=== PATIENT | female | born 1995 | race Caucasian/White ===

== ENCOUNTER 2023-06-01 10:54 | Outpatient (OUT) | payer BC, OTHER, SELFPAY ==
--- NOTE | 2023-06-01 10:58 | US_ITS ---
The [address] [address] Patient Name: ELI FATIMA MRN: [id number] date: 1995 Sex: F Assigned Patient Location: US Current Patient Location: US Accession/Order Number: [id number] Exam Date: 06/01/2023 10:58 Report Date: 06/01/2023 13:12 At the request of: CARMEN ALAS Procedure: US pelvis w/ transvaginal EXAM: US pelvis w/ transvaginal HISTORY: PELVIC PAIN AND DISCHARGE COMPARISON: 02/02/2022 08/01/2022. TECHNIQUE: Pelvic sonography was performed utilizing grayscale and color Doppler technique. FINDINGS: Hysterectomy. Right ovary measures 2.6 x 2.1 x 2.8 cm. Normal right ovarian parenchyma. Left ovary measures 2.6 x 1.2 x 2.0 cm. Normal left ovarian parenchyma. No significant free fluid within the pelvis. US/US pelvis w/ transvaginal IMPRESSION: 1. Hysterectomy. 2. Unremarkable ovaries. Electronically authenticated by: ALVARO JUNE Date: 06/01/2023 13:12
== END 2023-06-01 10:55 | disposition home or self-care (01) ==
LOC: US 10:55
PROVIDERS: PCP Family Medicine; Visit Provider Obstetrics & Gynecology
DX: R10.2 Pelvic and perineal pain (principal)
CPT/HCPCS: 76830; 76856

== ENCOUNTER 2023-06-07 12:55 | Outpatient (OUT) | payer BC, OTHER, SELFPAY ==
[2023-06-08 06:18] LABS: HBsAg Screen Negative (Negative); HCV Ab Non Reactive (Non Reactive); HIV Ab/p24 Ag Screen Non Reactive (Non Reactive); Hep A Ab, IgM Negative (Negative); Hep B Core Ab, IgM Negative (Negative)
[2023-06-08 11:08] LABS: Rapid Plasma Reagin, Quant Non Reactive titer (NonRea<1:1)
== END 2023-06-07 12:56 | disposition home or self-care (01) ==
PROVIDERS: PCP Family Medicine; Visit Provider Obstetrics & Gynecology
DX: R10.2 Pelvic and perineal pain (principal); N89.8 Other specified noninflammatory disorders of vagina
CPT/HCPCS: 36415; 80074; 86592; 87389

== ENCOUNTER 2023-07-09 12:29 | Outpatient (OUT) | payer BC, OTHER, SELFPAY | END 2023-07-09 12:30 | disposition home or self-care (01) | LOC: PST 12:34 | PROVIDERS: PCP Family Medicine; Visit Provider Obstetrics & Gynecology | DX: Z01.818 Encounter for other preprocedural examination (principal); R10.2 Pelvic and perineal pain; N89.8 Other specified noninflammatory disorders of vagina ==

== ENCOUNTER 2023-07-23 07:21 | Day surgery (SDC) | payer BC, OTHER, SELFPAY ==
[2023-07-09 13:01] VITALS: BP 94/53; PULSE 74; RESP 14; TEMP 36.4; O2SAT 100; BMI 27.8
[2023-07-23] VITALS (10 sets, daily range): BP systolic 85–109; BP diastolic 44–63; PULSE 47–76; RESP 14–20; TEMP 36–36.1; O2SAT 98–100
[2023-07-23 07:34] LABS: Basophils Absolute Auto 0.1 10^3/uL (0.0-0.1); Basophils Percent Auto 1.3 % (0.2-2.0); Eosinophils Absolute Auto 0.1 10^3/uL (0.0-0.7); Eosinophils Percent Auto 1.1 % (0.9-7.0); Hematocrit 45.5 % (36.0-48.0); Immature Granulocytes Abs Auto 0.01 10^3/uL (0.00-0.03); Immature Granulocytes Pct Auto 0.1 % (0.0-0.5); Lymphocytes Percent Auto 41.8 % (20.5-60.0); Mean Corpuscular Hemoglobin 29.4 pg (26.7-34.0); Mean Corpuscular Volume 89.2 fL (81.0-99.0); Mean Platelet Volume 12.5 fL (9.5-13.5); Monocytes Absolute Auto 0.6 10^3/uL (0.3-0.8); Monocytes Percent Auto 8.7 % (1.7-12.0); Neutrophils Absolute Auto 3.3 10^3/uL (1.4-6.5); Platelet Count 254 10^3/uL (150-450); Red Cell Distribution Width 12.4 % (11.0-15.0); White Blood Count 7.1 10^3/uL (4.0-11.0)
--- NOTE | 2023-07-23 08:01 | PC.NURSE ---
2 attempts by other nurse
[2023-07-23] MEDS: LACTATED RINGER'S SOLUTION 1,000 ML 50 ML IV (08:02)
[2023-07-23] MEDS: SCOPOLAMINE 1 MG/3 DAYS TRANSDERM PATCH 1 PATCH TD (08:06)
--- NOTE | 2023-07-23 08:59 | PM.ONB ---
Brief Operative Note Date of procedure: 07/23/23 Pre-op diagnosis: pelvic pain,endometriosis Post-op diagnosis: same as pre-op Procedure: NAME OF PROCEDURE: [diagnostic laparoscopy with lysis of bowel adhesions] endometriosis pelvic side wall, normal appearing ovaries PROCEDURE: The patient was taken back to the Operating Room where she was placed in dorsal lithotomy position after given general anesthesia. The patient was prepped and draped in normal sterile fashion. A sponge stick was placed into the patient's vagina. Attention was turned to the patient's abdomen, where a small umbilical incision was made. The fascia was tented using Angie clamps and the fascia was entered sharply. Confirmation of intraabdominal placement of the 10 mm port was confirmed under direct visualization using a laparoscope. The patient's abdomen was then insufflated using CO2 gas with approximately 4 liters. A second port was placed left laterally, this was done under direct visualization with a 5 mm port. Survey of the patient's abdomen demonstrated normal liver and gallbladder. Survey of the patient's pelvic anatomy demonstrated normal appearing rt and lt ovary and tubes as well as normal appearing uterus. No endometrial implants could be noted, no evidence of any pelvic disease was seen, normal appearing pelvic cavity. All instruments were removed from the patient's abdomen. The patient's abdomen was deinsufflated of CO2 gas. The patient tolerated the procedure well. Sponge stick was removed from the patient's vagina. The patient's infraumbilical fascia was closed using #0 Vicryl on a GI needle. The patient's skin was closed laterally and infraumbilically using 4-0 Vicryl. The patient tolerated the procedure well. Sponge, lap and needle counts were correct x 2. The patient was taken to Recovery Room in stable condition. please note monopolar scissors was used to perform lysis of adhesions of the bowel from the pelvic side on the lt side Anesthesia: MARY Surgeon: Timmy Smiley Film Projector Operator: Cristina Hickey Estimated blood loss (mL): 5 Pathology: none sent Condition: stable Disposition: PACU
[2023-07-23] MEDS: HYDROMORPHONE HCL 0.5 MG/0.5 ML SYRINGE IV ×2 (09:15→09:22)
[2023-07-23] MEDS: KETOROLAC TROMETHAMINE 30 MG/ML VIAL IVP (09:16)
--- NOTE | 2023-07-23 09:40 | PC.NURSE ---
Medicated with Dilaudid as ordered; c/o burning in urethra; on bedpan
--- NOTE | 2023-07-23 09:45 | PC.NURSE ---
Medicated for pain as ordered
--- NOTE | 2023-07-23 09:53 | PC.NURSE ---
Off bedpan; unable to void
--- NOTE | 2023-07-23 10:10 | PC.NURSE ---
Up to bathroom and voids clear yellow
[2023-07-23] MEDS: HYDROCODONE/ACET 5-325 MG TABLET 1 TAB PO (10:16)
--- NOTE | 2023-07-23 10:24 | PC.NURSE ---
Medicated for pain as ordered
== END 2023-07-23 10:36 | disposition home or self-care (01) ==
PROVIDERS: PCP Family Medicine; Visit Provider Obstetrics & Gynecology
PROC: (CPT 840; principal; 2023-07-23 08:35)
DX: R10.2 Pelvic and perineal pain (principal); N89.8 Other specified noninflammatory disorders of vagina; N80.359 Endometriosis of pelvic sidewall, unspecified side, unspecified depth; N73.6 Female pelvic peritoneal adhesions (postinfective); J45.909 Unspecified asthma, uncomplicated; M79.7 Fibromyalgia; F41.1 Generalized anxiety disorder; Z90.710 Acquired absence of both cervix and uterus; K58.9 Irritable bowel syndrome, unspecified; F31.9 Bipolar disorder, unspecified; Z87.440 Personal history of urinary (tract) infections; Z86.16 Personal history of COVID-19; F17.210 Nicotine dependence, cigarettes, uncomplicated; Z90.49 Acquired absence of other specified parts of digestive tract; K21.9 Gastro-esophageal reflux disease without esophagitis
CPT/HCPCS: 49329; 36415; 85025; J1170; J2704

== ENCOUNTER 2024-01-26 09:27 | Outpatient (OUT) | payer BC, OTHER, SELFPAY ==
--- NOTE | 2024-01-26 09:33 | US_ITS ---
The [address] [address] Patient Name: NAFISA ELLIOTT MRN: [id number] date: 1995 Sex: F Assigned Patient Location: US Current Patient Location: Accession/Order Number: [id number] Exam Date: 01/26/2024 09:35 Report Date: 01/27/2024 11:10 At the request of: TEE BLANCAS Procedure: US soft tissue head and neck EXAMINATION: US soft tissue head and neck HISTORY: Lump of scalp R22.0 COMPARISON: No relevant comparison available. FINDINGS: Corresponding to patient's palpable lump within the right occipital region is a 10 x 7 x 2 mm hypoechoic area which follows the tissue plane. No appreciable internal blood flow; but there is an adjacent blood vessel. US/US soft tissue head and neck IMPRESSION: 1. Nonspecific subcutaneous nodule versus complex fluid collection corresponding to patient's palpable lump within the right occipital region. Consider clinical follow-up and if changing consider ultrasound-guided tissue sampling. Electronically authenticated by: SPENSER YANG Date: 01/27/2024 11:10
--- OUTSIDE RECORDS SUMMARY | 2024-01-26 09:37 | XMS_ITS | CCD ---
Author Organization [facility] Inform ion Partnership [facility] Care Team Providers Care Store Gift Wrap Associate Name Role Phone Unknown, Referring Provider Unavailable Unav ailable Unavailable Unavailable UNKNOWN, PCP Primary Care Unavailable ULIS DANIEL DASH Attending Unavailab Dr. Layne Velázquez Jr Referring U navailable LUIS DANIEL DASH Attending Unavailab le LUIS DANIEL DASH Referring Unavailab le UNKNOWN, PCP Primary Care Unavailable LUIS DANIEL DASH Attending Unavailab le UNKNOWN, PCP Primary Care Unavailable LUIS DANIEL DASH Admitting Unavailab le EKTALUIS DANIEL Attending Unavailab le EKTALUIS DANIEL Referring Unavailab le UNKNOWN, PCP Primary Care Unavailable Unavailable Primary Care Provider Unavailabl e Allergies Allergy Classification Reported Allergen(s) Allergy Type Date of Onset Reaction(s) Facility (1 source) metroNIDAZOLE; Translations: [Flagyl] Drug [facility]: Medications Completed/Discontinued Medications Medication Drug Class(es) Dates Sig (Normalized) Sig (Original) Escitalopram (1 source) Serotonin Reuptake Inhibitor Lexapro TABS Quantity: 0 Refills: 0 Ordered: 04-Dec-2022 DO Active mupirocin 0.02 mg/mg topical ointment (1 source) RNA Synthetase Inhibitor Antibacterial Start: 12-04-2022 Mupirocin 2 % External Ointment APPLY A SMALL AMOUNT 3 TIMES DAILY DIRECTED. Quantity: 2 Refills: 0 Ordered: 04-Dec-2022 Luis Daniel Dash MD Start : 04-Dec-2022 Active Problems Problem Classification Problem Date Documented Da te Episodic/Chronic Anxiety disorders (2 sources) Anxiety disorder, unspecified; Translations: [Anxiety disorder] Onset: 12-24-2022 12-31-2022 Chronic Asthma (2 sources) Unspecified asthma, uncomplicated; Translations: [Uncomplicated asthma] Onset: 12-24-2022 12-31-2022 Chronic Esophageal disorders (2 sources) Gastro-esophageal reflux disease without esophagitis; Translations: [Gastroesophageal reflux disease without esophagitis] Onset: 12-24-2022 12-31-2022 Chronic Mood disorders (1 source) Depressive disorder; Translations: [Depression, unspecified] 12-31-2022 Chronic Mood disorders (1 source) Mood disorders; Translations: [Depression, unspecified] Onset: 12-24-2022 Other acquired deformities (1 source) Finding of nasal deformity; Translations: [Acquired deformity of nose] Episodic Other skin disorders (1 source) Swollen nose; Translations: [Swelling, mass, or lump in head and neck] Episodic Other upper respiratory disease (1 source) Chronic rhinitis; Translations: [Chronic rhinitis] Chronic Other upper respiratory disease (3 sources) Deviated nasal septum; Translations: [Deviated nasal septum] 12-24-2022 Episodic Other upper respiratory disease (2 sources) Hypertrophy of nasal turbinates; Translations: [Hypertrophy of nasal turbinates] 12-24-2022 Episodic Other upper respiratory disease (1 source) Nasal congestion; Translations: [Other disease of nasal cavity and sinuses] Episodic Other upper respiratory disease (4 sources) Deviated nasal septum; Translations: [Deviated nasal septum] Onset: 12-24-2022 Episodic Other upper respiratory disease (4 sources) Hypertrophy of nasal turbinates; Translations: [Hypertrophy of nasal turbinates] Onset: 12-24-2022 Episodic Other upper respiratory disease (2 sources) Other specified disorders of nose and nasal sinuses; Translations: [Other specified disorders of nose and nasal sinuses] Onset: 12-24-2022 Episodic Other upper respiratory disease (1 source) Disorder of face; Translations: [Other specified disorders of nose and nasal sinuses] 12-31-2022 Episodic Residual codes; unclassified (1 source) Abnormal sensation; Translations: [Disturbance of skin sensation] Episodic Residual codes; unclassified (1 source) H/O: respiratory disease; Translations: [Other specified personal history presenting hazards to health] Episodic Substance-related disorders (2 sources) Nicotine dependence, unspecified, uncomplicated; Translations: [Nicotine dependence] Onset: 12-24-2022 12-31-2022 Chronic Results Test Name Value Interpretation Reference Range Facility Order Reconciliationon 12-24 Order Reconciliation Page 1 Discharge Reconciliation Document Reconciliation Type: Discharge requested on behalf of Marco Antonio Toledo (Resident) done by Marco Antonio Toledo (DO (Resident)) Discharge - Reconciliation: 24-Dec-2022 10:32 by: Marco Antonio Toledo (DO (Resident)) Home Medications EnteredHOME MEDICATIONS AT DISCHARGE DateReconciliation Comment/ Additional Information Lexapro 20 mg oral tablet 1 tab(s) orally once a day 14-Dec-2022 13:54 Lexapro 20 mg oral tablet 1 tab(s) orally once a day 14-Dec-2022 13:54 Lexapro 20 mg oral tablet is continued as Lexapro 20 mg oral tablet Current OrdersDateHOME MEDICATIONS AT DISCHARGE DateReconciliation Comment/ Additional Information ceFAZolin 1 gram Vial_IPRO SolutionGive 2 gram(s), IntraVenous, ONCE 24-Dec-2022 10:23 ceFAZolin 1 gram Vial_IPRO is not required Dexamethasone 10 mg/mL 1 mL Vial PF_IPRO SolutionGive 10 mg, IntraVenous, ONCE 24-Dec-2022 10:23 Dexamethasone 10 mg/mL 1 mL Vial PF_IPRO is not required ePHEDrine 50 mg/mL 1 mL Ampule_IPRO SolutionGive 25 mg, IntraVenous, ONCE 24-Dec-2022 10:23 ePHEDrine 50 mg/mL 1 mL Ampule_IPRO is not required FENTANYL 50MCG/1ML 2ML INJ_IPRO SolutionGive 100 microgram(s), IntraVenous, ONCE 24-Dec-2022 10:23 FENTANYL 50MCG/1ML 2ML INJ_IPRO is not required HYDROmorphone 1 mg/mL 1 mL Ampule_IPRO SolutionGive 1 mg, IntraVenous, ONCE 24-Dec-2022 10:23 HYDROmorphone 1 mg/mL 1 mL Ampule_IPRO is not required HYDROmorphone Injectable (DILAUDID)DOSE = 0.25 mg IntraVenous Push Every 5 Minutes, PRN Pain - Mod (4-6) (PACU)Clinician Notes: Octavia-operative order ONLYMax total of 4 mg regardless of dose. 24-Dec-2022 08:04 HYDROmorphone Injectable is not required HYDROmorphone Injectable (DILAUDID)DOSE = 0.5 mg IntraVenous Push Every 5 Minutes, PRN Pain - Severe (7-10) (PACU)Clinician Notes: Octavia-operative order ONLYMax total of 4 mg regardless of dose. 24-Dec-2022 08:04 HYDROmorphone Injectable is not required Ketorolac 30 mg/mL Inj 1mL_IPRO SolutionGive 30 mg, IntraVenous, ONCE 24-Dec-2022 10:23 Ketorolac 30 mg/mL Inj 1mL_IPRO is not required Lactated Ringers Infusion IV Bag Volume = 1,000 mL Run at: 100 mL/hr IntraVenous Clinician Notes: Octavia-operative order ONLY 24-Dec-2022 08:04 Lactated Ringers Infusion is not required LIDOCAINE 2% PF 5ML VIAL_IPRO SolutionGive 60 mg, IntraVenous, ONCE 24-Dec-2022 10:23 LIDOCAINE 2% PF 5ML VIAL_IPRO is not required Lidocaine 1% Injectable DOSE = 0.1 mL SubCutaneous Once, PRN analgesia for IV startClinician Notes: Octavia-operative order ONLYTo be used for IV Insertion Only 24-Dec-2022 08:04 Lidocaine 1% Injectable is not required Midazolam 1 mg/mL Inj 2 mL_IPRO SolutionGive 2 mg, IntraVenous, ONCE 24-Dec-2022 10:23 Midazolam 1 mg/mL Inj 2 mL_IPRO is not required Ondansetron 4 mg/2 mL Inj_IPRO SolutionGive 4 mg, IntraVenous, ONCE 24-Dec-2022 10:23 Ondansetron 4 mg/2 mL Inj_IPRO is not required Ondansetron Injectable (ZOFRAN)DOSE = 4 mg IntraVenous Push Once, PRN PONV, first lineClinician Notes: Octavia-operative order ONLY 24-Dec-2022 08:04 Ondansetron Injectable is not required oxyCODONE Immediate Release Tablet (OXYIR, ROXICODONE)DOSE = 10 mg Oral Every 4 Hours, PRN Pain - Severe (7-10) (PACU) when able to take oralClinician Notes: Octavia-operative order ONLY 24-Dec-2022 08:04 oxyCODONE Immediate Release is not required oxyCODONE Immediate Release Tablet (OXYIR, ROXICODONE)DOSE = 5 mg Oral Every 4 Hours, PRN Pain - Mod (4-6) (PACU) when able to take OralClinician Notes: Octavia-operative order ONLY 24-Dec-2022 08:04 oxyCODONE Immediate Release is not required Phenylephrine 400 micrograms/10 mL Syringe_IPRO SolutionGive 400 microgram(s), IntraVenous, ONCE 24-Dec-2022 10:23 Phenylephrine 400 micrograms/10 mL Syringe_IPRO is not required Propofol 10 mg/mL 50 mL Inj_IPRO SolutionGive 698.92 mg, IntraVenous, ONCE 24-Dec-2022 10:23 Propofol 10 mg/mL 50 mL Inj_IPRO is not required PROPOFOL 10MG/1ML 20ML VIAL_IPRO SolutionGive 200 mg, IntraVenous, ONCE 24-Dec-2022 10:23 PROPOFOL 10MG/1ML 20ML VIAL_IPRO is not required Succinylcholine 100 mg/5 mL Syr_IPRO SolutionGive 80 mg, IntraVenous, ONCE 24-Dec-2022 10:23 Succinylcholine 100 mg/5 mL Syr_IPRO is not required Home Medications Added During Discharge Reconciliation Activity as Tolerated 24-Dec-2022, Routine, Assistance Level: None, Restrictions: None, Limit your activities and rest today. Additional Patient Instructions Additional post-operative instructions were given to the patient by the provider in the pre-op office visit Additional Patient Instructions Do not engage in sports, heavy work or lifting. Additional Patient Instructions Do not make important decisions or sign any important documents for the next 24 hours. Additional Patient Instructions It is recommended that a responsible adult remain with you for the next 24 hours as you may be light headed/dizzy. Call Physician For: ex (more content not included)... Normal [facility] Patient Profile - Preop v3on 12-14-2022 Patient Profile - Preop v3 Patient Profile - Preop: Initial Info: Patient DemographicsName: NAFISA ELLIOTT Date: 1995 Address: [address] [place] [address] Primary Phone [phone] How to be Addressedelena Spoken Language PreferredEnglish Source of Informationpatient Stated Reason for Admissionseptoplasty Primary Contact Name and Numberjerry Limitations on Visitors/Phone Callsnone Medications Brought to Hospitalno General Health: Weight in kg69.2 kilogram(s) Weight in uem422.5 pound(s) Weight Methodactual (measured) Scale Typestanding Height in feet5 feet Height Methodstated Patient or Family Member Reaction to Anesthesiano previous reaction Blood Avoidance/Restrictionsno ne Previous Transfusion Reactionnot applicable Health Mgmt: Symptoms/Conditions Managed at Homecardiovascular; gastrointestinal Are You no Are You Currently Breastfeedingno Cardiovascular Symptoms/Conditionsirreg ular heartbeat diagnosed years ago current EKG to be fax[facility] to the [facility] Gastrointestinal Symptoms/ConditionsIBS Barriers to Managing Healthnone Relationship/Environ: Lives Withdependent child(lamine) Living Arrangementshouse Resource/Environmental Concernsnone [place] [facility] Anticipated at Transitionnone Tobacco Use: Tobacco Useyes Tobacco Typecigarettes Last Tobacco [id number] Number of Packs per Day0.5 Number of yrs10 Pack yrs5 Pre-op Checklist: Arrival [id number] Arrival Time06:46 Procedure Typeseptoplasty NPOyes Last Food [id number] 22:30 Last Clear Fluid [id number] 22:30 ID Band On Patientpatient ID (name), allergy Consent Signedpending H&P Completepending Anesthesia Assessment Completedpending HCG Urine TestComplete Surgical Site Infection Preventionyes Additional Information: Information Review: Allergies, Home Meds and Significant Events have been Reviewed and Verified with Patient/Familyyes Significant Events: 14-Dec-2022 episiotomy: Past Surgical History, Active 14-Dec-2022 cyst removed right armpit x2: Past Surgical History, Active 14-Dec-2022 Cholecystectomy: Past Surgical History, Active 14-Dec-2022 nose surgery: Past Surgical History, Active 14-Dec-2022 Hysterectomy: Past Surgical History, Active, ovaries intact; cervix and tubes removed 14-Dec-2022 birthmark removed from chin: Past Surgical History, Active 14-Dec-2022 Tonsillectomy: Past Surgical History, Active Electronic Signatures: henri Russell) (Signed 24-Dec-2022 06:58) Authored: Initial Info, General Health, Health Mgmt, Relationship/Environ, Tobacco Use, Pre-op Checklist, Additional Information Cristina Ron (ROMAN) (Signed 14-Dec-2022 13:59) Authored: Initial Info, Health Mgmt, Tobacco Use, Additional Information Last Updated: 24-Dec-2022 06:58 by henri Russell (RN) Normal [facility] Tobacco Screening.on 023 Adult depression screening assessment No [facility] Work Phone: Tobacco use status [facility] a) Yes [facility] Work Phone: Tobacco Screening. Yes [facility] Work Phone: Vital Signs Date Time Vital Sign Value Performing Clinician Facility 12-04-2022 10:54-0400 Body height 152.4 cm Referring Provider Unknown [facility] Work Phone: 12-04-2022 10:54-0400 Body mass index (BMI) [Ratio] 29.15 kg/m2 Referring Provider Unknown [facility] Work Phone: 12-04-2022 10:54-0400 Body surface area Derived from formula 1.65 m2 Referring Provider Unknown [facility] Work Phone: 12-04-2022 10:54-0400 Body temperature 97.4 [degF] Referring Provider Unknown [facility] Work Phone: 12-04-2022 10:54-0400 Body weight 67.7 kg Referring Provider Unknown [facility] Work Phone: 12-04-2022 10:54-0400 0 1 Referring Provider Unknown [facility] Work Phone: Comment on above: PainScale Encounters Encounter Date Encounter Type Care Provider Facility Start: 01-18-2023 ambulatory LUIS DANIEL Peres acility:[id number] Start: 01-01-2023 ambulatory LUIS DANIEL Peres acility:[id number] Start: 12-24-2022 End: 12-24-2022 ambulatory LUIS DANIEL DASH Facility:[facility] Start: 12-24-2022 End: 12-24-2022 Subsequent hospital visit by physician Luis Daniel Dash MD Work Phone: [facility] Comment on above: Deviated nasal septu m; Hypertrophy of nasal turbinates; Other specified disorders of nose and nasal sinuses; Unspecified asthma, uncomplicated; Anxiety disorder, unspecified; Depression, unspecified; Gastro-esophageal reflux disease without esophagitis; Nicotine dependence, unspecified, uncomplicated Start: 12-04-2022 Office consultation new/estab patient 80 min Referring Provider Unknown [facility] [place] Work Phone: Start: 12-04-2022 ambulatory PCP UNKNOWN Facility:[id number] Procedures Date Procedure Procedure Detail Performing Clinician Operation on nose Referring Provider Unknown Tonsillectomy Referring Prov ider Unknown Plan of Treatment Date Care Activity Detail Author Start: 12-03-2047 Zoster Vaccines (1 of 2) Zoste r Vaccines (1 of 2) [facility] Start: 04-09-2023 Influenza vaccination Influenza Vacc ine (#1) [facility] Start: 12-03-2019 DTaP/Tdap/Td Vaccine s (1 - Tdap) DTaP/Tdap/Td Vaccines (1 - Tdap) [facility] Start: 2018 Screening for malign ant neoplasm of cervix [facility] Start: 12-03-2015 Hepatitis C screening Hepatitis C Sc reening [facility] Start: 2008 HPV Vaccines (1 - 2- dose series) HPV Vaccines (1 - 2-dose series) [facility] Start: 1998 MMR Vaccines (1 of 1 - Standard series) MMR Vaccines (1 of 1 - Standard series) [facility] Start: 1998 Varicella vaccination Varicell a Vaccines (1 of 2 - 2-dose childhood series) [facility] Start: 06-03-1998 COVID-19 Vaccine (#1) COVID-19 Vacci ne (#1) [facility] Start: 1997 Hepatitis B Vaccines (1 of 3 - 3-dose series) Hepatitis B Vaccines (1 of 3 - 3-dose series) [facility] Start: 1997 HIV screening HIV Screening [facility] Start: 1997 Lipid panel Lipid Panel [facility] Start: 1997 Yearly Adult Physical Yearly Adult P hysical [facility] Payers Date Payer Category Payer Unknown [id number] 1995 Unknown [id number] 1995 Unknown [id number] 1995 Unknown [id number] Unknown [facility] PL[facility] Unknown [id number] Unknown [id number] Social History Date Type Detail Facility Current smoker Current smoker -[facility] Work Phone: Tobacco smoking status DEIS Tobacco smoking consumption unknown [facility] Work Phone: Start: 1995 Sex Assigned At Not on file [facility] Work Phone: Gender identity Not on file [facility] Work Phone: Clinical Note 12-24-2022 Note Date & Type Note Facility 12-24-2022 Note PROCEDURE DETAILS Preoperative Diagnosis: Nasal obstruction inferior turbinate hypertrophy Deviated nasal septum Nasal valve stenosis Postoperative Diagnosis: Nasal obstruction inferior turbinate hypertrophy Deviated nasal septum Nasal valve stenosis Surgeon: Dr. Dash Resident/Fellow/Other Tire Technician: Dr. Toledo Procedure: Septorhinoplasty Anesthesia: general Estimated Blood Loss: 25 Findings: see op report Drains and/or Catheters: none Patient Returned To/Condition: PACU in stable condition Operative Report: The patient presented with nasal obstruction in the setting of previous nasal surgery. The patient was found to have significant nasal septal deviation, collapse of the middle vault with nasal valve collapse, and inferior turbinate hypertrophy. I discussed with the patient, in detail, the risks, benefits, limitations, and alternatives to the planned procedures. Risks discussed included but were not limited to infection, bleeding, septal perforation, synechia, need for further surgery, failure to achieve our desired results, worsened breathing, and worsened appearance. The patient expressed understanding of each of these complications and had all questions answered. DESCRIPTION OF PROCEDURE: The patient was brought to the operating room and placed in the supine position, then intubated under general anesthesia. The nose was injected with 1% lidocaine with epinephrine and then packed with decongestant-soaked pledgets. The face was prepped and draped in the usual sterile fashion. A transcolumellar incision was performed in an inverted-V fashion, which was continued into marginal incisions bilaterally using sharp scissors. The skin-soft tissue envelope was elevated in the supraperichondrial plane sharply over the nasal tip and midvault. The periosteum overlying the bony dorsum was then carefully elevated. The anterior septal angle was identified and mucoperichondrial flaps were elevated bilaterally. The dorsal and middle vault complex was found to be more extensively involved in the obstruction prompting placement of a dorsal and caudal strut graft. Saddling of the middle vault was encountered intra-operatively and open septorhinoplasty was warranted to achieve reconstruction of the nasal tip complex, support the nasal tip and establish nasal airway patency. Deformed portions of the cartilage were excised with >1.0 cm L-shaped strut maintained. Prior to sterile prepping and draping, the right ear had been identified, marked, and injected with local anesthetic with epinephrine. A curvilinear anterior auricular incision was created just posterior to the conchal eminence and sharp dissection was carried down onto the conchal cartilage. The skin-soft tissue envelope was elevated off of the conchal cartilage, leaving the anterior perichondrium in place. Following wide exposure, the cartilage was sharply incised, taking care to preserve an adequate amount of cartilage along the anti-helical fold. Subperichondrial dissection was performed on the posterior aspect of the [place] cavum and [place] cymba. The conchal cartilage was then freed from its attachment medially, released, and placed in saline for later use. The wound was irrigated and meticulous hemostasis was achieved using bipolar electrocautery.5-0 fast gut was used to close the skin in a running fashion. The ear was bolstered with chromic gut quilting sutures. Deformities of the cartilaginous and bony dorsum were rasped using both the coarse and fine rasped. A 3mm osteotome was then used to perform lateral osteotomies in a percutaneous fashion in order to treat an open roof deformity. A dorsal and caudal strut graft was then created using previously harvested septal cartilage, and suture fixed with 5-0 PDS on the right of the septum, in order to treat the deformed cartilage. This was fashioned from previously harvested auricular cartilage. The nasal tip was stabilized with septocolumellar sutures. We then turned our attention to closure. Meticulous skin closure was performed using fast gut in a simple, interrupted fashion. The nose was gently cleansed with sterile saline and an external nasal splint was placed in the usual fashion. This concluded the goals of the procedure. The patient was turned over to Anesthesia, extubated, and transferred to the PACU. Attestation: Note Completion: Attending AttestationI was present for the entire procedure I am a:Resident/Fellow Electronic Signatures: Luis Daniel Dash) (Signed 25-Dec-2022 20:36) Authored: Post-Operative Note, Chart Review, Note Completion Co-Signer: Post-Operative Note, Chart Review, Note Completion Marco Antonio Toledo ( (Resident)) (Signed 24-Dec-2022 15:26) Authored: Post-Operative Note, Chart Review, Note Completion Last Updated: 25-Dec-2022 20:36 by Luis Daniel Dash) [facility] Note 12-24-2022 Op Note - [place] Conversion - 12/24/2022 11:33 AM EDT Note Date & Type Note Facility 12-24-2022 Miscellaneous Notes PROCEDURE DETAILS Preoperative Diagnosis: Nasal obstruction inferior turbinate hypertrophy Deviated nasal septum Nasal valve stenosis Postoperative Diagnosis: Nasal obstruction inferior turbinate hypertrophy Deviated nasal septum Nasal valve stenosis Surgeon: Dr. Dash Resident/Fellow/Other Tire Technician: Dr. Toledo Procedure: Septorhinoplasty Anesthesia: general Estimated Blood Loss: 25 Findings: see op report Drains and/or Catheters: none Patient Returned To/Condition: PACU in stable condition Operative Report: The patient presented with nasal obstruction in the setting of previous nasal surgery. The patient was found to have significant nasal septal deviation, collapse of the middle vault with nasal valve collapse, and inferior turbinate hypertrophy. I discussed with the patient, in detail, the risks, benefits, limitations, and alternatives to the planned procedures. Risks discussed included but were not limited to infection, bleeding, septal perforation, synechia, need for further surgery, failure to achieve our desired results, worsened breathing, and worsened appearance. The patient expressed understanding of each of these complications and had all questions answered. DESCRIPTION OF PROCEDURE: The patient was brought to the operating room and placed in the supine position, then intubated under general anesthesia. The nose was injected with 1% lidocaine with epinephrine and then packed with decongestant-soaked pledgets. The face was prepped and draped in the usual sterile fashion. A transcolumellar incision was performed in an inverted-V fashion, which was continued into marginal incisions bilaterally using sharp scissors. The skin-soft tissue envelope was elevated in the supraperichondrial plane sharply over the nasal tip and midvault. The periosteum overlying the bony dorsum was then carefully elevated. The anterior septal angle was identified and mucoperichondrial flaps were elevated bilaterally. The dorsal and middle vault complex was found to be more extensively involved in the obstruction prompting placement of a dorsal and caudal strut graft. Saddling of the middle vault was encountered intra-operatively and open septorhinoplasty was warranted to achieve reconstruction of the nasal tip complex, support the nasal tip and establish nasal airway patency. Deformed portions of the cartilage were excised with >1.0 cm L-shaped strut maintained. Prior to sterile prepping and draping, the right ear had been identified, marked, and injected with local anesthetic with epinephrine. A curvilinear anterior auricular incision was created just posterior to the conchal eminence and sharp dissection was carried down onto the conchal cartilage. The skin-soft tissue envelope was elevated off of the conchal cartilage, leaving the anterior perichondrium in place. Following wide exposure, the cartilage was sharply incised, taking care to preserve an adequate amount of cartilage along the anti-helical fold. Subperichondrial dissection was performed on the posterior aspect of the [place] cavum and [place] cymba. The conchal cartilage was then freed from its attachment medially, released, and placed in saline for later use. The wound was irrigated and meticulous hemostasis was achieved using bipolar electrocautery.5-0 fast gut was used to close the skin in a running fashion. The ear was bolstered with chromic gut quilting sutures. Deformities of the cartilaginous and bony dorsum were rasped using both the coarse and fine rasped. A 3mm osteotome was then used to perform lateral osteotomies in a percutaneous fashion in order to treat an open roof deformity. A dorsal and caudal strut graft was then created using previously harvested septal cartilage, and suture fixed with 5-0 PDS on the right of the septum, in order to treat the deformed cartilage. This was fashioned from previously harvested auricular cartilage. The nasal tip was stabilized with septocolumellar sutures. We then turned our attention to closure. Meticulous skin closure was performed using fast gut in a simple, interrupted fashion. The nose was gently cleansed with sterile saline and an external nasal splint was placed in the usual fashion. This concluded the goals of the procedure. The patient was turned over to Anesthesia, extubated, and transferred to the PACU. Attestation: Note Completion: Attending Attestation I was present for the entire procedure I am a: Resident/Fellow Electronic Signatures: Luis Daniel Dash) (Signed 25-Dec-2022 20:36) Authored: Post-Operative Note, Chart Review, Note Completion Co-Signer: Post-Operative Note, Chart Review, Note Completion Marco Antonio Toledo ( (Resident)) (Signed 24-Dec-2022 15:26) Authored: Post-Operative Note, Chart Review, Note Completion Last Updated: 25-Dec-2022 20:36 by Luis Daniel Dash) documented in this encounter [facility] Work Phone: Clinical Note 12-24-2022 Op Note - [place] Conversion - 12/24/2022 11:33 AM EDT Note Date & Type Note Facility 12-24-2022 Note Formatting of this n ote is different from the original. PROCEDURE DETAILS Preoperative Diagnosis: Nasal obstruction inferior turbinate hypertrophy Deviated nasal septum Nasal valve stenosis Postoperative Diagnosis: Nasal obstruction inferior turbinate hypertrophy Deviated nasal septum Nasal valve stenosis Surgeon: Dr. Dash Resident/Fellow/Other Tire Technician: Dr. Toledo Procedure: Septorhinoplasty Anesthesia: general Estimated Blood Loss: 25 Findings: see op report Drains and/or Catheters: none Patient Returned To/Condition: PACU in stable condition Operative Report: The patient presented with nasal obstruction in the setting of previous nasal surgery. The patient was found to have significant nasal septal deviation, collapse of the middle vault with nasal valve collapse, and inferior turbinate hypertrophy. I discussed with the patient, in detail, the risks, benefits, limitations, and alternatives to the planned procedures. Risks discussed included but were not limited to infection, bleeding, septal perforation, synechia, need for further surgery, failure to achieve our desired results, worsened breathing, and worsened appearance. The patient expressed understanding of each of these complications and had all questions answered. DESCRIPTION OF PROCEDURE: The patient was brought to the operating room and placed in the supine position, then intubated under general anesthesia. The nose was injected with 1% lidocaine with epinephrine and then packed with decongestant-soaked pledgets. The face was prepped and draped in the usual sterile fashion. A transcolumellar incision was performed in an inverted-V fashion, which was continued into marginal incisions bilaterally using sharp scissors. The skin-soft tissue envelope was elevated in the supraperichondrial plane sharply over the nasal tip and midvault. The periosteum overlying the bony dorsum was then carefully elevated. The anterior septal angle was identified and mucoperichondrial flaps were elevated bilaterally. The dorsal and middle vault complex was found to be more extensively involved in the obstruction prompting placement of a dorsal and caudal strut graft. Saddling of the middle vault was encountered intra-operatively and open septorhinoplasty was warranted to achieve reconstruction of the nasal tip complex, support the nasal tip and establish nasal airway patency. Deformed portions of the cartilage were excised with >1.0 cm L-shaped strut maintained. Prior to sterile prepping and draping, the right ear had been identified, marked, and injected with local anesthetic with epinephrine. A curvilinear anterior auricular incision was created just posterior to the conchal eminence and sharp dissection was carried down onto the conchal cartilage. The skin-soft tissue envelope was elevated off of the conchal cartilage, leaving the anterior perichondrium in place. Following wide exposure, the cartilage was sharply incised, taking care to preserve an adequate amount of cartilage along the anti-helical fold. Subperichondrial dissection was performed on the posterior aspect of the [place] cavum and [place] cymba. The conchal cartilage was then freed from its attachment medially, released, and placed in saline for later use. The wound was irrigated and meticulous hemostasis was achieved using bipolar electrocautery.5-0 fast gut was used to close the skin in a running fashion. The ear was bolstered with chromic gut quilting sutures. Deformities of the cartilaginous and bony dorsum were rasped using both the coarse and fine rasped. A 3mm osteotome was then used to perform lateral osteotomies in a percutaneous fashion in order to treat an open roof deformity. A dorsal and caudal strut graft was then created using previously harvested septal cartilage, and suture fixed with 5-0 PDS on the right of the septum, in order to treat the deformed cartilage. This was fashioned from previously harvested auricular cartilage. The nasal tip was stabilized with septocolumellar sutures. We then turned our attention to closure. Meticulous skin closure was performed using fast gut in a simple, interrupted fashion. The nose was gently cleansed with sterile saline and an external nasal splint was placed in the usual fashion. This concluded the goals of the procedure. The patient was turned over to Anesthesia, extubated, and transferred to the PACU. Attestation: Note Completion: Attending Attestation I was present for the entire procedure I am a: Resident/Fellow Electronic Signatures: Luis Daniel Dash) (Signed 25-Dec-2022 20:36) Authored: Post-Operative Note, Chart Review, Note Completion Co-Signer: Post-Operative Note, Chart Review, Note Completion Marco Antonio Toledo (Resident)) (Signed 24-Dec-2022 15:26) Authored: Post-Operative Note, Chart Review, Note Completion Last Updated: 25-Dec-2022 20:36 by Luis Daniel Dash) [facility] Work Phone: Clinical Note 12-24-2022 Note Date & Type Note Facility 12-24-2022 Note History & Physical R eviewed: /Lactating: Are You no Are You Currently Breastfeedingno I have reviewed the History and Physical dated: 04-Dec-2022 History and Physical reviewed and relevant findings noted. Patient examined to review pertinent physical findings.: No significant changes Home Medications Reviewed: no changes noted Allergies Reviewed: no changes noted ERAS (Enhanced Recovery After Surgery): ERAS Patient: no Consent: COVID-19 Consent: COVID-19 Risk ConsentSurgeon has reviewed guzman risks related to the risk of meri COVID-19 and if they contract COVID-19 what the risks are. Attestation: Note Completion: I am a: Resident/Fellow Attending AttestationI saw and evaluated the patient. I personally obtained the guzman and critical portions of the history and physical exam or was physically present for guzman and critical portions performed by the resident/fellow. I reviewed the resident/fellows documentation and discussed the patient with the resident/fellow. I agree with the resident/fellows medical decision making as documented in the note. I personally evaluated the patient [id number] Electronic Signatures: Luis Daniel Dash) (Signed 24-Dec-2022 10:47) Authored: Note Completion Co-Signer: History & Physical Reviewed, ERAS, Consent, Note Completion Marco Antonio Toledo ( (Resident)) (Signed 23-Dec-2022 20:10) Authored: History & Physical Reviewed, ERAS, Consent, Note Completion Last Updated: 24-Dec-2022 10:47 by Luis Daniel Dash) [facility] History and physical note 12-24-2022 [place] Conversion - 12/24/2022 5:09 AM EDT Note Date & Type Note Facility 12-24-2022 History and physical note History & Physical Reviewed: /Lactating: Are You no Are You Currently no I have reviewed the History and Physical dated: 28-Apr-2023 History and Physical reviewed and relevant findings noted. Patient examined to review pertinent physical findings.: No significant changes Home Medications Reviewed: no changes noted Allergies Reviewed: no changes noted ERAS (Enhanced Recovery After Surgery): ERAS Patient: no Consent: COVID-19 Consent: COVID-19 Risk Consent Surgeon has reviewed guzman risks related to the risk of meri COVID-19 and if they contract COVID-19 what the risks are. Attestation: Note Completion: I am a: Resident/Fellow Attending Attestation I saw and evaluated the patient. I personally obtained the guzman and critical portions of the history and physical exam or was physically present for guzman and critical portions performed by the resident/fellow. I reviewed the resident/fellow?s documentation and discussed the patient with the resident/fellow. I agree with the resident/fellow?s medical decision making as documented in the note. I personally evaluated the patient on 24-Dec-2022 Electronic Signatures: Luis Daniel Dash) (Signed 24-Dec-2022 10:47) Authored: Note Completion Co-Signer: History & Physical Reviewed, ERAS, Consent, Note Completion Marco Antonio Toledo (DO (Resident)) (Signed 23-Dec-2022 20:10) Authored: History & Physical Reviewed, ERAS, Consent, Note Completion Last Updated: 24-Dec-2022 10:47 by Luis Daniel Dash) [facility] History and physical note 12-24-2022 [place] Conversion - 12/24/2022 5:09 AM EDT Note Date & Type Note Facility 12-24-2022 History and physical note History & Physical Reviewed: /Lactating: Are You no Are You Currently no I have reviewed the History and Physical dated: 04-Dec-2022 History and Physical reviewed and relevant findings noted. Patient examined to review pertinent physical findings.: No significant changes Home Medications Reviewed: no changes noted Allergies Reviewed: no changes noted ERAS (Enhanced Recovery After Surgery): ERAS Patient: no Consent: COVID-19 Consent: COVID-19 Risk Consent Surgeon has reviewed guzman risks related to the risk of meri COVID-19 and if they contract COVID-19 what the risks are. Attestation: Note Completion: I am a: Resident/Fellow Attending Attestation I saw and evaluated the patient. I personally obtained the guzman and critical portions of the history and physical exam or was physically present for guzman and critical portions performed by the resident/fellow. I reviewed the resident/fellow?s documentation and discussed the patient with the resident/fellow. I agree with the resident/fellow?s medical decision making as documented in the note. I personally evaluated the patient on 24-Dec-2022 Electronic Signatures: Luis Daniel Dash) (Signed 24-Dec-2022 10:47) Authored: Note Completion Co-Signer: History & Physical Reviewed, ERAS, Consent, Note Completion Marco Antonio Toledo (Resident)) (Signed 23-Dec-2022 20:10) Authored: History & Physical Reviewed, ERAS, Consent, Note Completion Last Updated: 24-Dec-2022 10:47 by Luis Daniel Dash) documented in this encounter [facility] Work Phone: Evaluation note Note Date & Type Note Facility Evaluation note Diagnosis Deviated nasal septum Hypertrophy of nasal turbinates Other specified disorders of nose and nasal sinuses Unspecified asthma, uncomplicated Anxiety disorder, unspecified Depression, unspecified Gastro-esophageal reflux disease without esophagitis Nicotine dependence, unspecified, uncomplicated documented in this encounter [facility] Work Phone: History of Present illness Narrative Note Date & Type Note Facility History of Present illness Narrative Reason for consult: Nasal obstructionReferring provider: Dr. Jade Complaint: Obstructed breathingConstant, present year round, does not fluctuate. It affects the patients ability to sleep, exercise, and is troubling during the day.Symptoms began: Years agoNasal steroid or spray: has attempted flonase > 6 weeks without benefitSite of obstruction: bilateral, left > rightPrevious Otolaryngology Provider: Dr. Mendez documentation for this patient was extensively reviewed including specific reasons for evaluation. Complex nature of complaint and medical issues prompting evaluation for surgical consideration by facial plastic & reconstructive surgeon.Previous surgery: Previous septoplastyPrevious CT/MRI imaging of the nasal cavity and sinuses: DeniesTrauma history: deniesSleep apnea or snoring history: deniesAllergic rhinitis, sinusitis history: deniesSmokin/2 ppdAesthetic concern: nonePast, family, and social history obtained but not pertinent to current problem other than documented in HPI:All other systems have been reviewed and are negative for complaint.Physical examGeneral: Well-developed and well-nourished in appearance.Skin: No rashes or concerning lesions on the visible portions of the skin.Eyes: Extraocular movements intact. Visual anthony grossly normal.Ears: Pinna are normal in shape and position. External canals are patent.Oral Cavity/Oropharynx: Dentition is intact. Mucous membranes moist. No masses or lesions. Tonsils are symmetric and non-obstructive.Neck: Midline trachea without masses or lesions. Thyroid is normal in size.Lymphatics: No palpable cervical lymphadenopathyRespiratory: No respiratory distress. Quiet breathing without stertor or stridor.Cardiovascular: Regular rate and rhythm. Warm extremities with equal pulses.Psych: Normal mood and affect. Judgement and insight appropriate.Neuro: Alert and oriented. CN II-XII grossly intact. No focal deficits.Musculoskeletal: Gait intact. Moves all extremities well without apparent deformities.A comprehensive facial exam was performed with the following highlights:alar collapse left > rightSeptum: deviated to the leftInferior turbinates: hypertrophied blNasal valve angle: reduced bilaterally, alar collapse present with re curvature of the LLCIntranasal examination performed with limited view on anterior rhinoscopy.Procedures:Procedure: Rigid diagnostic nasal endoscopySurgeon: Itz Purdythesia: NoneTimeout: PerformedFindings: A 0-degree rigid endoscope was passed through the patient's bilateral naris. The first pass was along the floor of the nose to the nasopharynx. The second pass was to the area of the middle meatus. The third pass was to the sphenoethmoidal recess.Septum: Deviation is left sided obstruction approximately 90% without perforations nor synechia.Internal Nasal Valve: Angle is reduced, narrowing the nasal airway bilaterally.Right nasal cavity:Inferior turbinate: 2+Inferior meatus: Clear, no discharge, no polyps/masses/lesionsMiddle meatus: Clear, no discharge, no polyps/masses/lesionsLeft nasal cavity:Inferior turbinate: 2+Inferior meatus: Clear, no discharge, no polyps/masses/lesionsMiddle meatus: Clear, no discharge, no polyps/masses/lesionsNasopharynx: Clear, no discharge, no masses/lesionsModified Tania Maneuver: Performed with a cotton tipped applicator, markedly improves breathing bilaterally. [facility] Work Phone: Family History Unknown Family Member Name Dates Details No pertinent family history: Mother, Father(V49.89, Z78.9) Status:Active Summary Purpose Advance Directives No Advanced Directives Records Found Additional Source Comments INFORMATION SOURCE (unrecogn ized section and content) DATE CREATED AUTHOR 03/19/2023 [facility] Reason for Visit (unrecogniz ed section and content) Reason Comments Other Revision septoplasty , turbinate reduction, nasal valve repair FOR RECORDS PERTAINING TO PATIENTS WHO ARE OR HAVE BEEN ENROLLED IN A CHEMICAL DEPENDENCY/SUBSTANCEABUSE PROGRAM, SOME INFORMATION MAY BE OMITTED. This clinical summary was aggregated from multiple sources. Caution should be exercised in using it in the provision of clinical care. This summary normalizes information from multiple sources, and as a consequence, information in this document may materially change the coding, format and clinical context of patient data. In addition, data may be omitted in some cases. CLINICAL DECISIONS SHOULD BE BASED ON THE PRIMARY CLINICAL RECORDS. [employer] provides no warranty or guarantee of the accuracy or completeness of information in this document.
== END 2024-01-26 09:28 | disposition home or self-care (01) ==
LOC: US 09:27
PROVIDERS: PCP Family Medicine; Visit Provider Family Medicine
DX: R22.0 Localized swelling, mass and lump, head (principal)
CPT/HCPCS: 76536

== ENCOUNTER 2024-02-04 12:12 | Day surgery (SDC) | payer BC, OTHER, SELFPAY ==
--- NOTE | 2024-02-04 12:15 | US_ITS ---
[address] [address] Patient Name: ELI FATIMA MRN: [id number] date: 1995 Sex: F Assigned Patient Location: US Current Patient Location: [place] Accession/Order Number: [id number] Exam Date: 02/04/2024 12:25 Report Date: 02/04/2024 13:28 At the request of: JAKE ELLINGTON Procedure: US biopsy FNA EXAMINATION: US biopsy FNA HISTORY: Lump of scalp R22.0 COMPARISON: No relevant comparison available. TECHNIQUE: After obtaining informed consent, an ultrasound-guided biopsy was performed in the usual sterile manner. FINDINGS: IMAGING: Ultrasound BIOPSY NEEDLE: 1 5 gauge, 2 inch SPECIMEN TYPE, #, LOCATION: 3 fine-needle aspirates, 1.6 cm right posterior/occipital scalp mass MEDICATION: 2 cc 1% buffered lidocaine COMPLICATIONS: None. LABORATORY: Pathology pending OTHER: Negative. US/US biopsy FNA IMPRESSION: Uneventful ultrasound guided biopsy. The patient was instructed to obtain follow up care and biopsy results from the referring physician. Electronically authenticated by: KATI BRADSHAW Date: 02/04/2024 13:28
--- OUTSIDE RECORDS SUMMARY | 2024-02-04 12:20 | XMS_ITS | CCD ---
Author Organization [facility] Inform ion Partnership BEAUTY ADVISOR [facility] Care Team Providers Care Electro Optics Engineer Name Role Phone Unknown, Referring Provider Unavailable Unav ailable Unavailable Unavailable UNKNOWN, PCP Primary Care Unavailable LUIS DANIEL DASH Attending Unavailab Dr. Layne Velázquez [...] source) metroNIDAZOLE; Translations: [Flagyl] Drug Allergy MG-[facility]o [facility] Work Phone: Medications Completed/Discontinued Medications Medication Drug [...] For: ex (more content not included)... Normal [facility] Patient Profile - Preop v3on 12-14-2022 Patient Profile - Preop v3 Patient Profile - Preop: Initial Info: Patient DemographicsName: NAFISA ELLIOTT Date: 1995 Address: [address] [place] [address] Primary Phone [phone] How to be Addressedelena Spoken Language PreferredEnglish Source of Informationpatient Stated Reason for Admissionseptoplasty Primary Contact Name and Numberjerry Limitations on Visitors/Phone Callsnone Medications Brought to Hospitalno General Health: Weight in kg69.2 kilogram(s) Weight in iip651.5 pound(s) Weight Methodactual (measured) Scale Typestanding Height in feet5 feet Height Methodstated Patient or Family Member Reaction to Anesthesiano previous reaction Blood Avoidance/Restrictionsno ne Previous Transfusion Reactionnot applicable Health Mgmt: Symptoms/Conditions Managed at Homecardiovascular; gastrointestinal Are You no Are You Currently Breastfeedingno Cardiovascular Symptoms/Conditionsirreg ular heartbeat diagnosed years ago current EKG to be faxed to [facility] Gastrointestinal Symptoms/ConditionsIBS Barriers to Managing Healthnone Relationship/Environ: Lives Withdependent child(lamine) Living Arrangementshouse Resource/Environmental Concernsnone Anticipated Transition [place] bottom Services Anticipated at Transitionnone Tobacco Use: Tobacco Useyes Tobacco Typecigarettes Last Tobacco [id number] Number of Packs per Day0.5 Number of yrs10 Pack yrs5 Pre-op Checklist: Arrival [id number] Arrival Time06:46 Procedure Typeseptoplasty NPOyes Last Food [id number] 22:30 Last Clear Fluid [id number] 22:30 ID Band On Patientpatient ID (name), [...] 24-Dec-2022 06:58 by henri Russell (RN) Normal [facility] Tobacco Screening.on 023 Adult depression screening assessment No MG-Otolaryn go [facility]y-[facility] Work Phone: Tobacco use status CPHS a) Yes MG-Otolaryngo [facility] Work Phone: Tobacco Screening. Yes [facility]-[place] l[facility]o [facility] Work Phone: Vital Signs Date Time Vital Sign Value Performing Clinician Facility 12-04-2022 10:54-0400 Body height 152.4 cm Referring Provider Unknown [facility]ology -[facility] Work Phone: 12-04-2022 10:54-0400 Body mass index (BMI) [Ratio] 29.15 kg/m2 Referring Provider Unknown [facility] Work Phone: 12-04-2022 10:54-0400 Body surface area Derived from formula 1.65 m2 Referring Provider Unknown [facility] Work Phone: 12-04-2022 10:54-0400 Body temperature 97.4 [degF] Referring Provider Unknown [facility] Work Phone: 12-04-2022 10:54-0400 Body weight 67.7 kg Referring Provider Unknown [facility] Work Phone: 12-04-2022 10:54-0400 0 1 Referring Provider Unknown [facility] Work Phone: Comment on above: PainScale Encounters Encounter Date Encounter Type Care Provider Facility Start: 01-18-2023 ambulatory LUIS DANIEL Peres acility:[id number] Start: 01-01-2023 ambulatory LUIS DANIEL Peres acility:[id number] Start: 12-24-2022 End: 12-24-2022 ambulatory LUIS DANIEL DASH Facility:[facility] David Surg Start: 12-24-2022 End: 12-24-2022 Subsequent hospital visit by physician Luis Daniel Dash MD Work Phone: [facility] Comment on above: Deviated nasal septu m; Hypertrophy of nasal turbinates; Other specified disorders of nose and nasal sinuses; Unspecified asthma, uncomplicated; Anxiety disorder, unspecified; Depression, unspecified; Gastro-esophageal reflux disease without esophagitis; Nicotine dependence, unspecified, uncomplicated Start: 12-04-2022 Office consultation new/estab patient 80 min Referring Provider Unknown [facility] [place] Work Phone: Start: 12-04-2022 ambulatory PCP UNKNOWN Facility:9 479 Procedures Date Procedure Procedure Detail Performing Clinician Operation on nose Referring Provider Unknown Tonsillectomy Referring Prov ider Unknown Plan of Treatment Date Care Activity Detail Author Start: 12-03-2047 Zoster Vaccines (1 of 2) Zoste r Vaccines (1 of 2) [facility] Start: 04-09-2023 Influenza vaccination Influenza Vacc ine (#1) [facility] Start: 12-03-2019 DTaP/Tdap/Td Vaccine s (1 - Tdap) DTaP/Tdap/Td Vaccines (1 - Tdap) [facility] Start: 2018 Screening for malign ant neoplasm of cervix [facility] Start: 12-03-2015 Hepatitis C screening Hepatitis C Sc reening [facility] Start: 2008 HPV Vaccines (1 - 2- dose series) HPV Vaccines (1 - 2-dose series) [facility] Start: 1998 MMR Vaccines (1 of 1 - Standard series) MMR Vaccines (1 of 1 - Standard series) [facility] Start: 1998 Varicella vaccination Varicell a Vaccines (1 of 2 - 2-dose childhood series) [facility] Start: 06-03-1998 COVID-19 Vaccine (#1) COVID-19 Vacci ne (#1) [facility] Start: 1997 Hepatitis B Vaccines (1 of 3 - 3-dose series) Hepatitis B Vaccines (1 of 3 - 3-dose series) [facility] Start: 1997 HIV screening HIV Screening [facility] Start: 1997 Lipid panel Lipid Panel [facility] Start: 1997 Yearly Adult Physical Yearly Adult P hysical [facility] Payers Date Payer Category Payer Unknown [id number] 1995 Unknown [id number] 1995 Unknown [id number] 1995 Unknown [id number] Unknown [employer] Unknown [id number] Unknown [id number] Social History Date Type Detail Facility Current smoker Current smoker -Otolaryn gology-[facility] Work Phone: Tobacco smoking status COIS Tobacco smoking consumption unknown [facility] Work Phone: Start: 1995 Sex Assigned At Not on file [facility] Work Phone: Gender identity Not on file [facility] Work Phone: Clinical Note 12-24-2022 Note Date & Type Note Facility 12-24-2022 Note PROCEDURE DETAILS Preoperative Diagnosis: Nasal obstruction inferior turbinate hypertrophy Deviated nasal septum Nasal valve stenosis Postoperative Diagnosis: Nasal obstruction inferior turbinate hypertrophy Deviated nasal septum Nasal valve stenosis Surgeon: Dr. Dash Resident/Fellow/Other Commercial Carpet Installer: Dr. Toledo Procedure: Septorhinoplasty Anesthesia: general Estimated [...] Updated: 25-Dec-2022 20:36 by Luis Daniel Dash) [facility] Note 12-24-2022 Op Note - [facility] Conversion - 12/24/2022 11:33 AM EDT Note Date & Type Note Facility 12-24-2022 Miscellaneous Notes PROCEDURE DETAILS Preoperative Diagnosis: Nasal obstruction inferior turbinate hypertrophy Deviated nasal septum Nasal valve stenosis Postoperative Diagnosis: Nasal obstruction inferior turbinate hypertrophy Deviated nasal septum Nasal valve stenosis Surgeon: Dr. Dash Resident/Fellow/Other Commercial Carpet Installer: Dr. Toledo Procedure: Septorhinoplasty Anesthesia: general Estimated [...] Luis Daniel Dash) documented in this encounter [facility] Work Phone: Clinical Note 12-24-2022 Op Note - Alamillo Conversion - 12/24/2022 11:33 AM EDT Note Date & Type Note Facility 12-24-2022 Note Formatting of this n ote is different from the original. PROCEDURE DETAILS Preoperative Diagnosis: Nasal obstruction inferior turbinate hypertrophy Deviated nasal septum Nasal valve stenosis Postoperative Diagnosis: Nasal obstruction inferior turbinate hypertrophy Deviated nasal septum Nasal valve stenosis Surgeon: Dr. Dash Resident/Fellow/Other Commercial Carpet Installer: Dr. Toledo Procedure: Septorhinoplasty Anesthesia: general Estimated [...] Updated: 25-Dec-2022 20:36 by Luis Daniel Dash) [facility] Work Phone: Clinical Note 12-24-2022 Note Date [...] the note. I personally evaluated the patient [id number] Electronic Signatures: Luis Daniel Dash) (Signed 24-Dec-2022 10:47) Authored: Note Completion Co-Signer: History & Physical Reviewed, ERAS, Consent, Note Completion Marco Antonio Toledo ( (Resident)) (Signed 23-Dec-2022 20:10) Authored: History & Physical Reviewed, ERAS, Consent, Note Completion Last Updated: 24-Dec-2022 10:47 by Luis Daniel Dash) [facility] History and physical note 12-24-2022 [place] Conversion - 12/24/2022 5:09 AM EDT Note [...] Updated: 24-Dec-2022 10:47 by Luis Daniel Dash) [facility] History and physical note 12-24-2022 [place] Conversion - 12/24/2022 5:09 AM EDT Note [...] Luis Daniel Dash) documented in this encounter [facility] Work Phone: Evaluation note Note Date & Type Note Facility Evaluation note Diagnosis Deviated nasal septum Hypertrophy of nasal turbinates Other specified disorders of nose and nasal sinuses Unspecified asthma, uncomplicated Anxiety disorder, unspecified Depression, unspecified Gastro-esophageal reflux disease without esophagitis Nicotine dependence, unspecified, uncomplicated documented in this encounter [facility] Work Phone: History of Present illness Narrative [...] cotton tipped applicator, markedly improves breathing bilaterally. [facility]Bsmrceurgzvykt-Ugmmcx ke Work Phone: Family History Unknown Family Member Name Dates Details No pertinent family history: Mother, Father(V49.89, Z78.9) Status:Active Summary Purpose Advance Directives No Advanced Directives Records Found Additional Source Comments INFORMATION SOURCE (unrecogn ized section and content) DATE CREATED AUTHOR 03/19/2023 [facility] Reason for Visit (unrecogniz ed section and [...] BE BASED ON THE PRIMARY CLINICAL RECORDS. [employer] provides no warranty or guarantee of the accuracy or completeness of information in this document.
[2024-02-04 12:30] VITALS: BP 103/50; PULSE 88; O2SAT 97
[2024-02-04] MEDS: LIDOCAINE HCL 10 ML, SODIUM BICARBONATE 1 MEQ INJ (13:00)
--- NOTE | 2024-02-04 14:56 | SUR.PREOP ---
02/01/24 Pt instructed on procedure, date, time, and prep. Pt made aware that she will need party bus driver if take an anxiolytic.
== END 2024-02-04 13:22 | disposition home or self-care (01) ==
LOC: US 12:12
PROVIDERS: Radiology Diagnostic Radiology; PCP Family Medicine; Visit Provider Physician Assistant
DX: R22.0 Localized swelling, mass and lump, head (principal)
CPT/HCPCS: 10005

== ENCOUNTER 2024-02-28 20:50 | Emergency (ER) | payer BC, OTHER, SELFPAY ==
[2024-02-28] VITALS (8 sets, daily range): BP systolic 100–110; BP diastolic 66–75; PULSE 56–84; TEMP 36.8; O2SAT 91–100; BMI 25.4
--- NOTE | 2024-02-28 21:51 | ED_ITS ---
HPI HPI - General Adult General Chief complaint: Abdominal Pain Stated complaint: DIZZINESS, SEEING FLASHING LIGHTS, NAUSEA Time Seen by Provider: 02/28/24 21:45 Source: patient Mode of arrival: walk-in Limitations: no limitations History of Present Illness HPI narrative: 28-year-old female presents for nausea vomiting and diarrhea of 5 days duration. She has not been able to eat or drink much and she is dizzy. No syncope. Sometimes her vision goes blurry and she sometimes sees flashes of light. She does not complain of a fever or headache and she has not been around any ill people. Related Data Home Medications ?Medication ?Instructions ?Recorded ?Confirmed aripiprazole 2 mg tablet (Abilify) 2 mg PO DAILY 07/09/23 02/28/24 escitalopram oxalate 20 mg tablet 20 mg PO DAILY 07/09/23 02/28/24 (Lexapro) lorazepam 0.5 mg tablet 0.5 mg PO BID 02/28/24 02/28/24 pregabalin 100 mg capsule 100 mg PO BID 02/28/24 02/28/24 Previous Rx's ?Medication ?Instructions ?Recorded ibuprofen 800 mg tablet 800 mg PO Q8H PRN pain 14 days #40 07/23/23 tabs ondansetron 4 mg disintegrating 4 mg PO Q6H PRN nausea and 02/28/24 tablet vomiting #20 tabs Allergies Allergy/AdvReac Type Severity Reaction Status Date / Time alprazolam Allergy Rash Verified 02/28/24 21:15 bisacodyl Allergy Rash Verified 02/28/24 21:15 buspirone Allergy Rash Verified 02/28/24 21:15 hydroxyzine Allergy syncope Verified 02/28/24 21:15 methylprednisolone Allergy Rash Verified 02/28/24 21:15 metronidazole [From Flagyl] Allergy Rash Verified 02/28/24 21:15 basil oil AdvReac Numbness Uncoded 02/28/24 21:15 Opioid HPI Opioid Management Most Recent Opioid Data: Last Pain Scale 4 07/23/23 10:22 Review of Systems ROS Narrative A ten point review of systems is negative except as noted above. [facility] Medical History (Updated 02/28/24 @ 22:57 by Christian Santana MD) Scalp mass (Unknown) ?R22.0 - Localized swelling, mass and lump, head (ICD-10) Borderline personality disorder ?F60.3 - Borderline personality disorder (ICD-10) Fibromyalgia ?M79.7 - Fibromyalgia (ICD-10) Anemia ?D64.9 - Anemia, unspecified (ICD-10) PTSD (post-traumatic stress disorder) ?F43.10 - Post-traumatic stress disorder, unspecified (ICD-10) Depression ?F32.A - Depression, unspecified (ICD-10) Anxiety ?F41.9 - Anxiety disorder, unspecified (ICD-10) Asthma ?J45.909 - Unspecified asthma, uncomplicated (ICD-10) Migraine ?G43.909 - Migraine, unspecified, not intractable, without status migrainosus (ICD-10) GERD (gastroesophageal reflux disease) ?K21.9 - Gastro-esophageal reflux disease without esophagitis (ICD-10) IBS (irritable bowel syndrome) ?K58.9 - Irritable bowel syndrome without diarrhea (ICD-10) Irregular heart beat ?I49.9 - Cardiac arrhythmia, unspecified (ICD-10) Vaginal discharge ?N89.8 - Other specified noninflammatory disorders of vagina (ICD-10) Herpes simplex ?B00.9 - Herpesviral infection, unspecified (ICD-10) Endometriosis ?N80.9 - Endometriosis, unspecified (ICD-10) Postoperative nausea and vomiting ?R11.2 - Nausea with vomiting, unspecified (ICD-10) ?Z98.890 - Other specified postprocedural states (ICD-10) Surgical History (Updated 02/04/24 @ 14:54 by Jesica Galicia) H/O fine needle aspiration with imaging guidance ?Z98.890 - Other specified postprocedural states (ICD-10) Hx of tonsillectomy ?Z90.89 - Acquired absence of other organs (ICD-10) History of surgical removal of lesion ?Z98.890 - Other specified postprocedural states (ICD-10) ?Z87.2 - Personal history of diseases of the skin and subcutaneous tissue (ICD-10) History of nasal septoplasty ?Z98.890 - Other specified postprocedural states (ICD-10) History of tubal ligation ?Z98.51 - Tubal ligation status (ICD-10) History of hysterectomy ?Z90.710 - Acquired absence of both cervix and uterus (ICD-10) History of endometrial ablation ?Z98.890 - Other specified postprocedural states (ICD-10) History of cholecystectomy ?Z90.49 - Acquired absence of other specified parts of digestive tract (ICD- 10) Family History (Updated 07/09/23 @ 12:56 by Carmen Mckinley NP) Other Family history of diabetes mellitus Family history of lung cancer Family history of myocardial infarction Social History (Updated 07/09/23 @ 12:51 by Carmen Mckinley NP) Within the past year, how often did you have a drink containing alcohol: monthly or less Smoking status: Current every day smoker Non-prescribed substance use: denies use Highest level of school completed/degree received: high school graduate Exam Narrative Exam Narrative: Nurses note and vital signs reviewed and patient is not hypoxic. General: The patient appears in no apparent distress. Skin: Warm, dry, no pallor noted. There is no rash noted. Head: Normocephalic, atraumatic Eye: Normal conjunctiva, no drainage Ears, Nose, Mouth, and Throat: oral mucosa is mildly dry. Nares patent. Cardiovascular: Regular Rate and Rhythm, not tachycardic Respiratory: Patient is in no distress, no accessory muscle use, lungs are clear to auscultation, no wheezing, rales or rhonchi Back: non-tender GI: Soft and nondistended Musculoskeletal: The patient has no evidence of calf tenderness, no pitting cris a, symmetrical pulses noted bilaterally Neurological: A&O, normal speech, moves all extremities well Psychiatric: Cooperative Constitutional Vital Signs, click to edit/add: Last Vital Signs Temp 98.3 F 02/28/24 21:16 Pulse 84 02/28/24 21:16 Resp 18 02/28/24 21:16 BP 110/75 02/28/24 21:16 Pulse Ox 98 02/28/24 21:16 O2 Del Method Room Air 02/28/24 21:16 Course Vital Signs Vital signs: Vital Signs Temperature 98.3 F 02/28/24 21:16 Pulse Rate 84 02/28/24 21:16 Respiratory Rate 18 02/28/24 21:16 Blood Pressure 110/75 02/28/24 21:16 Pulse Oximetry 98 02/28/24 21:16 Oxygen Delivery Method Room Air 02/28/24 21:16 Temperature 98.3 F 02/28/24 21:16 Pulse Rate 84 02/28/24 21:16 Respiratory Rate 18 02/28/24 21:16 Blood Pressure 110/75 02/28/24 21:16 Pulse Oximetry 98 02/28/24 21:16 Oxygen Delivery Method Room Air 02/28/24 21:16 Medical Decision Making MDM Narrative Medical decision making narrative: Blood work is essentially normal, urinalysis suggest dehydration. She was given IV fluids and feels much better. I have no clinical suspicion of a GI bleed, hemoglobin 15.8. She is feeling better after IV fluids and is able to be discharged home. Treatment diagnosis and follow-up were discussed with the patient. Differential Diagnosis Differential Diagnosis: Dehydration, gastroenteritis Lab Data Lab results reviewed: Yes I reviewed the patient's lab results Labs: Lab Results 02/28/24 02/28/24 Range/Units 22:05 22:30 WBC 9.1 (4.0-11.0) 10^3/uL RBC 5.47 H (4.20-5.40) 10^6/uL Hgb 15.8 (12.0-16.0) g/dL Hct 45.0 (36.0-48.0) % MCV 82.3 (81.0-99.0) fL MCH 28.9 (26.7-34.0) pg MCHC 35.1 (29.9-35.2) g/dL RDW 12.2 (11.0-15.0) % Plt Count 290 (150-450) 10^3/uL MPV 12.1 (9.5-13.5) fL Seg Neuts % (Manual) 47.0 Lymphocytes % (Manual) 27.0 (20.5-60.0) % Atypical Lymphs % (Man) 15.0 % Monocytes % (Manual) 9.0 (1.7-12.0) % Eosinophils % (Manual) 2.0 (0.9-7.0) % Basophils % (Manual) 0.0 L (0.2-2.0) % Neutrophils # (Manual) 4.27 (1.4-6.5) 10^3/uL Lymphocytes # (Manual) 2.45 (1.20-3.80) 10^3/uL Abs Atypical Lymphs Man 1.36 Monocytes # (Manual) 0.81 H (0.30-0.80) 10^3/uL Eosinophils # (Manual) 0.18 (0.00-0.70) 10^3/uL Basophils # (Manual) 0.00 (0.00-0.10) 10^3/uL Toxic Vacuolation 4+ Sodium 134 L (136-145) mmol/L Potassium 3.0 L (3.5-5.1) mmol/L Chloride 98 (98-107) mmol/L Carbon Dioxide 24.9 (21.0-32.0) mmol/L Anion Gap 14.1 BUN 11.0 (7.0-18.0) mg/dL Creatinine 0.69 (0.55-1.02) mg/dL Est GFR ( Amer) >60 (>=60) Est GFR (Non-Af Amer) >60 (>=60) BUN/Creatinine Ratio 15.9 Glucose 97 (74-106) mg/dL Calcium 9.3 (8.5-10.1) mg/dL Serum HCG, Qual Negative (NEGATIVE) Urine Color Dk. yellow (YELLOW) Urine Clarity Clear (CLEAR) Urine pH 6.0 (5.0-9.0) Ur Specific Gilbert >=1.030 A (1.005-1.025) Urine Protein 30 A (NEG/TRACE) mg/dL Urine Glucose (UA) Negative (NEGATIVE) mg/dL Urine Ketones 15 A (NEGATIVE) mg/dL Urine Occult Blood Negative (NEGATIVE) Urine Nitrite Negative (NEGATIVE) Urine Bilirubin Moderate A (NEGATIVE) Urine Urobilinogen 1.0 (0.2-1.0) EU/dL Ur Leukocyte Esterase Negative (NEGATIVE) Discharge Plan Discharge Stand Alone Forms: Portal Instructions Chief Complaint: Abdominal Pain Clinical Impression: Nausea, vomiting, and diarrhea Patient Disposition: Home, Self-Care Time of Disposition Decision: 22:57 Condition: Good Mode of Transportation: Private Vehicle Prescriptions / Home Meds: New ondansetron 4 mg tablet,disintegrating 4 mg PO Q6H PRN (Reason: nausea and vomiting) Qty: 20 0RF No Action escitalopram oxalate [Lexapro] 20 mg tablet 20 mg PO DAILY aripiprazole [Abilify] 2 mg tablet 2 mg PO DAILY ibuprofen 800 mg tablet 800 mg PO Q8H PRN (Reason: pain) 14 Days Qty: 40 0RF lorazepam 0.5 mg tablet 0.5 mg PO BID pregabalin 100 mg capsule 100 mg PO BID Print Language: Kinyarwanda Instructions: Acute Nausea and Vomiting (ED), Acute Diarrhea (ED) Referrals: TEE BLANCAS [Primary Care Provider] - 1 week
--- NOTE | 2024-02-28 21:51 | ECG_ITS ---
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
[2024-02-28] MEDS: 0.9 % SODIUM CHLORIDE 1,000 ML 1000 ML IV (22:05)
[2024-02-28] MEDS: ONDANSETRON PF 4 MG/2 ML VIAL IV (22:05)
[2024-02-28 22:24] LABS: Hemoglobin 15.8 g/dL (12.0-16.0); Mean Corpuscular HGB Conc 35.1 g/dL (29.9-35.2); Mean Corpuscular Hemoglobin 28.9 pg (26.7-34.0); Mean Corpuscular Volume 82.3 fL (81.0-99.0); Mean Platelet Volume 12.1 fL (9.5-13.5); Platelet Count 290 10^3/uL (150-450); Red Blood Count 5.47 10^6/uL (4.20-5.40); Red Cell Distribution Width 12.2 % (11.0-15.0); White Blood Count 9.1 10^3/uL (4.0-11.0)
[2024-02-28 22:34] LABS: HCG Qualitative NEGATIVE (NEGATIVE); Internal Control Within Normal Limits
[2024-02-28 22:37] LABS: Anion Gap 14.1; BUN Creatinine Ratio 15.9; Calcium 9.3 mg/dL (8.5-10.1); Carbon Dioxide 24.9 mmol/L (21.0-32.0); Chloride 98 mmol/L (98-107); Estimated GFR (African America >60 (>=60); Estimated GFR (Non-African Ame >60 (>=60); Glucose 97 mg/dL (74-106); Sodium 134 mmol/L (136-145)
[2024-02-28 22:48] LABS: Atypical Lymphocytes Abs Man 1.36; Eosinophils Absolute Manual 0.18 10^3/uL (0.00-0.70); Lymphocytes Absolute Manual 2.45 10^3/uL (1.20-3.80); Monocytes Absolute Manual 0.81 10^3/uL (0.30-0.80); Segmented Neut Absolute Manual 4.27 10^3/uL (1.4-6.5); Toxic Vacuolation 4+
[2024-02-28 22:53] LABS: Bilirubin Urine MODERATE (NEGATIVE); Blood Urine NEGATIVE (NEGATIVE); Clarity Urine CLEAR (CLEAR); Color Urine DK. YELLOW (YELLOW); Glucose Urine UA NEGATIVE (NEGATIVE); Ketones Urine 15 mg/dL (NEGATIVE); Leukocyte Esterase Urine NEGATIVE (NEGATIVE); Nitrite Urine NEGATIVE (NEGATIVE); Protein Urine 30 mg/dL (NEG/TRACE); Specific Gravity Urine >=1.030 (1.005-1.025)
[2024-02-28 23:01] LABS: Bacteria Urine SMALL #/HPF (NONE SEEN); Cast Seen? NONE SEEN #/LPF (NONE SEEN); Crystals Seen? None Seen #/HPF (None Seen); Mucus Urine LARGE (NONE SEEN); RBC Urine 0-2 #/HPF (0-2); Squamous Epithelial Cell Urine FEW #/LPF (NONE/RARE); Urine Culture Indicated YES
== END 2024-02-28 23:11 | disposition home or self-care (01) ==
PROVIDERS: Emergency Provider Emergency Medicine; PCP Family Medicine
DX: R11.2 Nausea with vomiting, unspecified (principal); R19.7 Diarrhea, unspecified; F17.200 Nicotine dependence, unspecified, uncomplicated
CPT/HCPCS: 36415; 80048; 81001; 84703; 85007; 85027; 87086; 93005; 96361; 96374; 99285; J2405

== ENCOUNTER 2024-08-14 20:14 | Outpatient (REF) | payer BC, OTHER, SELFPAY ==
[2024-08-16 16:12] LABS: Age Gdln ACOG Testing Note (.); IGP, rfx Aptima HPV ASCU Note (.)
== END 2024-08-14 20:15 | disposition home or self-care (01) ==
LOC: LAB 20:14
PROVIDERS: PCP Family Medicine; Visit Provider Obstetrics & Gynecology
DX: Z01.419 Encounter for gynecological examination (general) (routine) without abnormal findings (principal)
CPT/HCPCS: 88175

== ENCOUNTER 2024-11-29 08:59 | Outpatient (OUT) | payer BC, OTHER, SELFPAY ==
--- NOTE | 2024-11-29 09:24 | XR_ITS ---
[address] [address] Patient Name: NAFISA ELLIOTT MRN: [id number] date: 1995 Sex: F Assigned Patient Location: [facility] Current Patient Location: [facility] Accession/Order Number: [id number] Exam Date: 11/29/2024 09:57 Report Date: 11/29/2024 09:58 At the request of: CARMEN ALAS DO Procedure: XR chest 2V Plain film chest Single view HISTORY: Presurgical assessment COMPARISON: None FINDINGS: SUPPORT DEVICES: None POSTSURGICAL CHANGES: None HEART: Within normal limits PULMONARY JAYME: Within normal limits MEDIASTINUM: Unremarkable LUNGS AND PLEURA: No acute lung process, pleural effusion or pneumothorax identified. BONY STRUCTURES: Intact ADDITIONAL FINDINGS None XR/XR chest 2V IMPRESSION: No acute process. Impression dictated by: Darshan Hoang M.D.11/29/2024 9:58 AM Dictation Location: [place] [address] Electronically authenticated by: [id number] Date: 11/29/2024 09:58
== END 2024-11-29 09:00 | disposition home or self-care (01) ==
PROVIDERS: PCP Family Medicine; Visit Provider Obstetrics & Gynecology
DX: Z01.810 Encounter for preprocedural cardiovascular examination (principal); R10.2 Pelvic and perineal pain; N89.8 Other specified noninflammatory disorders of vagina; Z98.890 Other specified postprocedural states
CPT/HCPCS: 71046

== ENCOUNTER 2025-01-08 08:46 | Outpatient (OUT) | payer BC, OTHER, SELFPAY ==
--- OUTSIDE RECORDS SUMMARY | 2013-12-28 10:30 | XMS_ITS | Encounter Summary ---
Author Organization [facility] Address [address] [place] [address] Care Team Providers Care Autopsy Pathologist Name Role Phone Unavailable Primary Care Provider Unavailabl e Encounter Details Date Type Department Care Team (Late st Contact Info) Description 12/28/2013 10:30 AM EDT Hospital Encounter [facility] [address] [place] [address] Tamie Wei MD [address] [place] [address] Social History Tobacco Use Types Packs/Day Years [...]
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
--- OUTSIDE RECORDS SUMMARY | 2025-01-08 08:48 | XMS_ITS | Clinical Summary ---
Author Organization [facility] Address [address] [place] [address] Phone Care Team Providers Care Bleach Boiler Packer Name Role Phone Unavailable Primary Care Provider Unavailabl e Social History Tobacco Use Types Packs/Day Years Used Date Smoking Tobacco: Never Assessed Comments Unknown Sex and Gender Information Value Date Recorded Sex Assigned at Not on file Legal Sex Female 12:42 PM EDT Gender Identity Not on file Sexual Orientation Not on file Last Filed Vital Signs Vital Sign Reading Time Taken Comments Blood Pressure - - Pulse - - Temperature 36.3 C (97.4 F) 12/04/2022 10:54 AM EDT Respiratory Rate - - Oxygen Saturation - - Inhaled Oxygen Concentration - - Weight 66.2 kg (146 lb) 01/01/2023 9:03 AM EDT Height 152.4 cm (5') 01/01/2023 9:03 AM EDT Body Mass Index 28.51 01/01/2023 9:03 AM EDT Plan of Treatment Health Maintenance Due Date Last Done Comments HIV Screening 1997 Lipid Panel 1997 Yearly Adult Physical 1997 MMR Vaccines (1 of 1 - Stand jael series) 1998 Varicella Vaccines (1 of 2 - 13+ 2-dose series) 2010 Hepatitis C Screening 12/03/2015 Hepatitis B Vaccines (1 of 3 - 19+ 3-dose series) 2016 Cervical Cancer Screening 2018 HPV/Cotest 2018 Pap Smear 2018 DTaP/Tdap/Td Vaccines (1 - Tdap) 12/03/2019 COVID-19 Vaccine ( - 2023-2 5 season) 2024 Influenza Vaccine (Season Ended) 2025 Zoster Vaccines (1 of 2) 12/03/2047 HIB Vaccines Aged Out No longer eligi ble based on patient's age to complete this topic HPV Vaccines Aged Out No longer eligi ble based on patient's age to complete this topic Hepatitis A Vaccines Aged Out No long er eligible based on patient's age to complete this topic IPV Vaccines Aged Out No longer eligi ble based on patient's age to complete this topic Meningococcal Vaccine Aged Out No abril pita eligible based on patient's age to complete this topic Pneumococcal Vaccine: Pediat rics and At-Risk Adult Patients Aged Out No longer bello gible based on patient's age to complete this topic Rotavirus Vaccines Aged Out No longer eligible based on patient's age to complete this topic
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
--- OUTSIDE RECORDS SUMMARY | 2025-01-08 08:48 | XMS_ITS | Encounter Summary ---
Author Organization [employer] Address [id number] [address] [place] [address] Care Team Providers Care Central Office Equipment Engineer Name Role Phone Kimberly Arauz MD Primary Care Provider [phone] Encounter Details Date Type Department Care Team (Late st Contact Info) Description 10/18/2020 Orders Only [facility] [address] [facility] [place] [address] Nat Lowry MA Social History Tobacco Use Types Packs/Day Years Used Date Smoking Tobacco: Every Day Smokeless Tobacco: Never Alcohol Use Standard Drinks/Week Comments Not Currently 0 (1 standard drink = 0.6 oz pur e alcohol) Childcare Answer Date Recorded Childcare Unknown 01/18/2019 Employment Answer Date Recorded Employment Unknown 01/18/2019 Purpose - Life Answer Date Recorded Purpose [...] Description 01/08/2025 3:30 PM EDT Office Visit [facility] [place] [address] [place] [address] Carole Tyson, DO [address] [facility] [address] [place] [address] 01/09/2025 9:30 AM EDT Office Visit [facility] [address] [place] [address] Wolf Martell MD [address] [place] [address] documented as of this encounter Visit Diagnoses Not on filedocumented in this encounter Care Teams Central Office Equipment Engineer Relationship Specialty Start Date End Date Kimberly Arauz MD [address] [facility] [address] [place] [address] PCP - General Family Medicine 04/01/24 documented as of this encounter
--- OUTSIDE RECORDS SUMMARY | 2025-01-08 08:48 | XMS_ITS | Encounter Summary ---
Author Organization [facility] Address [address] [place] [address] Care Team Providers Care Nursery Attendant Name Role Phone Kimberly Blancas MD Primary Care Provider [phone] Gonzales Still ENZYME CHEMIST Unavailable Unava ilable Encounter Details Date Type Department Care Team (Late st Contact Info) Description 02/04/2024 Clinisync Result Encounter [facility] External Department Unsolicited Jake Barbour PA [address] [facility] [address] [place] [address] Social History Tobacco Use Types Packs/Day Years [...] more drinks on one occasion? Never 01/20/2023 Comments No Sex and Gender Information Value Date Recorded Sex Assigned at Not on file Legal Sex Female 11:07 PM EDT Gender Identity Not on file Sexual Orientation Not on file documented as of this encounter Plan of Treatment Upcoming Encounters Date Type Department Care Team (Late st Contact Info) Description 01/16/2025 2:10 PM EDT Office Visit [facility] [address] [facility] [place] [phone] Timmy Smiley DO [address] [place] [address] [place] [address] documented as of this encounter Procedures Procedure Name Priority Date/Time Associated Diagnosis Comments US BIOPSY FNA 02/04/2024 1:28 PM EDT documented in this encounter Results * US BIOPSY FNA (02/04/2024 1:28 PM EDT) Anatomical Region Laterality Modality Other 02/04/2024 1:28 PM EDT Narrative 02/04/2024 1:31 PM EDT The [address] [address] Ultrasound Report Signed Patient: Anabel Fatima MR#: [id number] : 1995 Acct:[id number] Age/Sex: 28 / F ADM Date: 02/04/24 Loc: US Attending Dr: JAKE BARBOUR Ordering Physician: JAKE BARBOUR Date of Service: 02/04/24 Procedure(s): US biopsy FNA Accession Number(s): [id number] cc: KIMBERLY BLANCAS ; JAKE BARBOUR [address] [address] Patient Name: ANABEL FATIMA MRN: [id number] date: 1995 Sex: F Assigned Patient Location: US Current Patient Location: US Accession/Order Number: [id number] Exam Date: 02/04/2024 12:25 Report Date: 02/04/2024 13:28 At the request of: JAKE BARBOUR Procedure: US biopsy FNA EXAMINATION: US biopsy FNA HISTORY: Lump of scalp R22.0 COMPARISON: No relevant comparison available. TECHNIQUE: After obtaining informed consent, an ultrasound-guided biopsy was performed in the usual sterile manner. FINDINGS: IMAGING: Ultrasound BIOPSY NEEDLE: 1 5 gauge, 2 inch SPECIMEN TYPE, #, LOCATION: 3 fine-needle aspirates, 1.6 cm right posterior/occipital scalp mass MEDICATION: 2 cc 1% buffered lidocaine COMPLICATIONS: None. LABORATORY: Pathology pending OTHER: Negative. US/US biopsy FNA IMPRESSION: Uneventful ultrasound guided biopsy. The patient was instructed to obtain follow up care and biopsy results from the referring physician. Electronically authenticated by: KATI BRADSHAW Date: 02/04/2024 13:28 Dictated By: Kati Bradshaw M.D. Signed By: 02/04/24 1334 DD/ 1328 TD/TT: Lime Mixer: Procedure Note Radiology, Radiologist, MD - 02/04/2024 [place] [address] Ultrasound Report Signed Patient: Anabel Fatima JMR#: [id number] : 1995Acct:[id number] Age/Sex: M Date: 02/04/24 Loc: US Attending Dr: JAKE BARBOUR Ordering Physician: JAKE BARBOUR Date of Service: 02/04/24 Procedure(s): US biopsy FNA Accession Number(s): [id number] cc: KIMBERLY BLANCAS ; JAKE BARBOUR The [place] [id number] Patient Name: ANABEL FATIMA MRN: [id number] date: 1995 Sex: F Assigned Patient Location: US Current Patient Location: US Accession/Order Number: [id number] Exam Date: 02/04/2024 12:25 Report Date: 02/04/2024 13:28 At the request of: JAKE BARBOUR Procedure: US biopsy FNA EXAMINATION: US biopsy FNA HISTORY: Lump of scalp R22.0 COMPARISON: No relevant comparison available. TECHNIQUE: After obtaining informed consent, an ultrasound-guided biopsywas performed in the usual sterile manner. FINDINGS: IMAGING: Ultrasound BIOPSY NEEDLE: 1 5 gauge, 2 inch SPECIMEN TYPE, #, LOCATION: 3 fine-needle aspirates, 1.6 cm right posterior/occipital scalp mass MEDICATION: 2 cc 1% buffered lidocaine COMPLICATIONS: None. LABORATORY: Pathology pending OTHER: Negative. US/US biopsy FNA IMPRESSION: Uneventful ultrasound guided biopsy. The patient was instructed to obtain follow up care and biopsy results from the referring physician. Electronically authenticated by: KATI BRADSHAW Date: 02/04/2024 13:28 Dictated By: Kati Bradshaw M.D. Signed By:02/04/24 1331 DD/ 1328 TD/TT: Lime Mixer: us Jake [facility] Final Result documented in this encounter Visit Diagnoses Not on filedocumented in this encounter Care Teams Nursery Attendant Relationship Specialty Start Date End Date Kimberly Blancas MD [address] [place] [address] PCP - General Family Medicine 01/20/23 Gonzales Still LPC Criminal Investigator Customs Commercial Floor Covering Installer 10/02/24 documented as of this encounter
--- OUTSIDE RECORDS SUMMARY | 2025-01-08 08:48 | XMS_ITS | Encounter Summary ---
Author Organization [facility] Address [address] [place] [address] Care Team Providers Care Twister Tender Name Role Phone Kimberly Arauz MD Primary Care Provider [phone] Gonzales Still MOBILE HOME TECHNICIAN Unavailable Unava ilable Encounter Details Date Type Department Care Team (Late st Contact Info) Description 02/07/2024 Orders Only [facility] [address] [facility] [address] [place] [address] Minoo Barbour PA [address] [facility] [address] [place] [address] Lump of scalp Social History Tobacco Use Types Packs/Day Years [...] EDT Office Visit [facility] B[facility] OB [address] [facility] [place] [address] Timmy Smiley, [address] [facility] [place] [address] documented as of this encounter Visit Diagnoses Diagnosis Lump of scalp documented in this encounter Care Teams Twister Tender Relationship Specialty Start Date End Date Kimberly Arauz MD 112 [facility] 110 [place] [address] PCP - General Family Medicine 01/20/23 Gonzales Still LPC Hat Finisher Carrot Grader Inspector 10/02/24 documented as of this encounter
--- OUTSIDE RECORDS SUMMARY | 2025-01-08 08:48 | XMS_ITS | Encounter Summary ---
Author Organization [facility] Address [address] [place] [address] Care Team Providers Care Fibreglass Laminator Name Role Phone Kimberly Arauz MD Primary Care Provider [phone] Gonzales Still CABLE STRANDER Unavailable Unava ilable Encounter Details Date Type Department Care Team (Late st Contact Info) Description 02/15/2024 Orders Only [facility] [address] [place] [phone] Unallocated, Noms Provider, [address] [place], [place] [id number] Social History Tobacco Use Types Packs/Day Years [...] EDT Office Visit [facility] OB [address] [place] [address] Timmy Smiley, DO [address] [facility] [place] [address] documented as of this encounter Procedures Procedure Name Priority Date/Time Associated Diagnosis Comments US LOCAL BIOPSY Routine 02/15/2024 9:44 AM EDT documented in this encounter Results * US LOCAL BIOPSY (02/15/2024 9:44 AM EDT) Anatomical Region Laterality Modality Radiographic Alice ging us [facility] Provider Unallocated IMG XR PROCEDURES F inal Result documented in this encounter Visit Diagnoses Not on filedocumented in this encounter Care Teams Fibreglass Laminator Relationship Specialty Start Date End Date Kimberly Arauz MD 112 [facility] [address] [place] [address] PCP - General Family Medicine 01/20/23 Gonzales Still LPC Siding Mechanic Recreation Technician 10/02/24 documented as of this encounter
--- OUTSIDE RECORDS SUMMARY | 2025-01-08 08:49 | XMS_ITS | Encounter Summary ---
Author Organization [facility] Address [id number] [address] [place] [address] Care Team Providers Care Sales/Marketing Name Role Phone Kimberly Arauz MD Primary Care Provider [phone] Encounter Details Date Type Department Care Team (Late st Contact Info) Description 01/02/2025 Abstract [facility] [address] [place] [address] Wolf Martell MD [address] [place], [place] [phone] Social History Tobacco Use Types Packs/Day Years Used Date Smoking Tobacco: Every Day Cigarettes Smokeless Tobacco: Never Alcohol Use Standard Drinks/Week Comments Not Currently 0 (1 standard drink = 0.6 oz pur e alcohol) [facility] [place] [facility] Utilities Answer Date Recorded In the past 12 months has e electric, gas, oil, or water company threatened to shut off services in your [...] Description 01/08/2025 3:30 PM EDT Office Visit [facility] [place] [address] [place] [address] Carole Tyson DO [address] [facility] [address] [place] [address] 01/09/2025 9:30 AM EDT Office Visit [facility] [address] [place] [address] Wolf Martell MD [address] [place], [place] [id number] documented as of this encounter Goals Goal Patient Goal Type Associated Problems Recent Progress Patient-Stated? Author Safe discharge General Yes Mia Castro, RN Note: Evaluation of progress towards goal: Pt will be open to safe discharge recs. documented as of this encounter Visit Diagnoses Not on filedocumented in this encounter Additional Health Concerns Assessment Noted Time PHQ-9 Depression Total Score: 0 12/05/19 25 3:55 PM EDT documented as of this encounter Care Teams Sales/Marketing Relationship Specialty Start Date End Date Kimberly Arauz MD [address] [place] [address] PCP - General Family Medicine 04/01/24 documented as of this encounter
--- OUTSIDE RECORDS SUMMARY | 2025-01-08 08:49 | XMS_ITS | Encounter Summary ---
Author Organization [facility] Address [id number] [address] [place] [address] Care Team Providers Care Tool Grinder Set Up Operator Gear Name Role Phone Kimberly Arauz MD Primary Care Provider [phone] Encounter Details Date Type Department Care Team (Late st Contact Info) Description 12/15/2024 Telephone [facility] [address] [place] [address] Pinky Ramos, JULIO Social History Tobacco Use Types Packs/Day Years Used Date Smoking Tobacco: Every Day Cigarettes Smokeless Tobacco: Never Alcohol Use Standard Drinks/Week Comments Not Currently 0 (1 standard drink = 0.6 oz pur e alcohol) [facility] Utilities Answer Date Recorded In the past 12 months has [employer], gas, oil, or water weartolook threatened to shut off services in your [...] on file documented as of this encounter Miscellaneous Notes * Telephone Encounter - Pinky Ramos CMA - 12/15/2024 9:54 AM EDT Called patient x2, call can't be completed. Letter sent. documented in this encounter Plan of Treatment Upcoming Encounters Date Type Department Care Team (Late st Contact Info) Description 01/08/2025 3:30 PM EDT Office Visit [facility] [address] [place] [address] Carole Tyson, DO [address] [facility] [address] [place] [address] 01/09/2025 9:30 AM EDT Office Visit [facility] [address] [place] [address] Wolf Martell MD [address] [place] [address] documented as of this encounter Goals Goal [...] documented as of this encounter Care Teams Tool Grinder Set Up Operator Gear Relationship Specialty Start Date End Date Kimberly Arauz MD [address] [facility] [address] [place] [address] PCP - General Family Medicine 04/01/24 documented as of this encounter
--- OUTSIDE RECORDS SUMMARY | 2025-01-08 08:49 | XMS_ITS | Encounter Summary ---
Author Organization [facility] Address [address] [place] [address] Care Team Providers Care Motorcycle Designer Name Role Phone Kimberly Arauz MD Primary Care Provider [phone] Gonzales Still LPC Unavailable Unava ilable Encounter Details Date Type Department Care Team (Latest Contact Info) Description 12/28/2024 Travel Social History Tobacco Use Types Packs/Day Years [...] as of this encounter Functional Status * Over the [...] Quinn MA documented as of this encounter Plan of Treatment Upcoming Encounters Date Type Department Care Team (Late st Contact Info) Description 01/16/2025 2:10 PM EDT Office Visit [facility] OB [address] [place] [address] Timmy Smiley, DO [address] [facility] [place] [address] documented as of this encounter Visit Diagnoses Not on filedocumented in this encounter Care Teams Motorcycle Designer Relationship Specialty Start Date End Date Kimberly Arauz MD [address] [facility] [address] [place] [address] PCP - General Family Medicine 01/20/23 Gonzales Still LPC Rock Room Worker Drywall Taper 10/02/24 documented as of this encounter
--- OUTSIDE RECORDS SUMMARY | 2025-01-08 08:49 | XMS_ITS | Encounter Summary ---
Author Organization [facility] Address [address] [place] [address] Care Team Providers Care Water Project Engineer Name Role Phone Kimberly Arauz MD Primary Care Provider [phone] Gonzales Still CORD CUTTER Unavailable Unava ilable Reason for Visit * Reason Onset Date Comments Results 01/04/2025 Encounter Details Date Type Department Care Team (Late st Contact Info) Description 01/04/2025 Results Follow-Up [facility] [address] [facility] [address] [place] [address] Kimberly Arauz MD 112 [facility] 110 [place], [place] [phone] Social History Tobacco Use Types Packs/Day Years [...] encounter Miscellaneous Notes * Telephone Encounter - Tiffany Neri LPN - 01/04/2025 2:36 PM EDT Pt notified of lab reuslts * Telephone Encounter - Tiffany Neri LPN - 01/04/2025 2:36 PM EDT ----- Message from Dr. Kimberly Arauz sent at 01/04/2025 1:46 PM EDT ----- Platelets are elevated probably an inflamatory response. Alk Phos is elevated from the trauma. Calcium is elevated, reduce Calcium intake ----- Message ----- From: TE2 Lab Results In Sent: 12/29/2024 7:17 AM EDT To: Kimberly Arauz MD documented in this encounter Plan of Treatment Upcoming Encounters Date Type Department Care Team (Late st Contact Info) Description 01/16/2025 2:10 PM EDT Office Visit [facility] OB [address] [place] [address] Timmy Smiley, DO [address] [facility] [place] [address] documented as of this encounter Visit Diagnoses Not on filedocumented in this encounter Care Teams Water Project Engineer Relationship Specialty Start Date End Date Kimberly Arauz MD [address] [facility] [address] [place], [place] [phone] PCP - General Family Medicine 01/20/23 Gonzales Still LPC Embroidery Supervisor Layout Operator 10/02/24 documented as of this encounter
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
--- OUTSIDE RECORDS SUMMARY | 2025-01-08 08:49 | XMS_ITS | Encounter Summary ---
Author Organization [facility] Address [address] [place] [address] Care Team Providers Care Binder Folder Operator Name Role Phone Kimberly Arauz MD Primary Care Provider [phone] Joaquin-Ki, Gonzales SOLDER DEPOSIT OPERATOR Unavailable Unava ilable Reason for Referral * Imaging (Routine) - Authorized Specialty Diagnoses / Procedures Referred By Contac t Referred To Contact Radiology Diagnoses Irregular heart rhythm Procedures Holter monitor Minoo Barbour PA 112 [facility] 110 [place] [address] Phone: tel: fax: [facility] [place] [address] [place] [address] Phone: tel: fax: Referral ID Status Reason Start Date Expiration Date V isits Requested Visits Authorized [id number] Authorized 12/29/2024 06/27/2025 1 1 Encounter Details Date Type Department Care Team (Late st Contact Info) Description 12/29/2024 Telephone [facility] 112 [facility] 110 [place] [address] Kimberly Arauz MD 112 [facility] 110 [place], [place] [id number] Social History Tobacco Use Types Packs/Day Years [...] encounter Miscellaneous Notes * Telephone Encounter - Emani Bee LPN - 12/29/2024 12:30 PM EDT Faxed. * Telephone Encounter - DENISSE Romero - 12/29/2024 12:16 PM EDT He is correct, that diagnosis is inaccurate. Diagnosis corrected. Please send updated order to [facility].Please and thank you. * Telephone Encounter - Emani Bee LPN - 12/29/2024 10:07 AM EDT Concetta from [facility] LM on VM that she is in the process of doing a PA on the holter monitor for pt andneeds to confirm that the diagnosis is irregular heart rate before she can continue. If needsto be changed will need new order with corrected diagnosis, if this is the correct diagnosis can leave her a message at [phone] Ext [phone] documented in this encounter Plan of Treatment Upcoming Encounters Date Type Department Care Team (Late st Contact Info) Description 01/16/2025 2:10 PM EDT Office Visit [facility] [address] [facility] [place] [phone] Timmy Smiley DO [address] [facility] [place] [address] Scheduled Orders Name Type Priority Associated Diagnoses Orde r Schedule Holter monitor Imaging Routine Irregular heart rhythm Expected: 12/29/2024 (Approximate), Expires: 12/29/2025 documented as of this encounter Visit Diagnoses Diagnosis Irregular heart rhythm- Primary documented in this encounter Care Teams Binder Folder Operator Relationship Specialty Start Date End Date Kimberly Arauz MD 112 [facility] 110 [place] [address] PCP - General Family Medicine 01/20/23 Gonzales Still LPC Trimming Department Blocker Primary Products Inspectors 10/02/24 documented as of this encounter
--- OUTSIDE RECORDS SUMMARY | 2025-01-08 08:49 | XMS_ITS | Encounter Summary ---
Author Organization [facility] Address [address] [place] [address] Care Team Providers Care Car Repairer Apprentice Name Role Phone Kimberly Arauz MD Primary Care Provider [phone] Joaquin-Gonzales Emerson MANAGER GIFT Unavailable Unava ilable Encounter Details Date Type Department Care Team (Late Contact Info) Description 01/21/2023 Abstract [facility] [address] [facility] 110 [place] [address] Kimberly Arauz MD 112 [facility] 110 [place], [place] [phone] Social History Tobacco Use Types Packs/Day Years Used Date Smoking Tobacco: Former Cigarettes Q uit: 12/30/2022 Smokeless Tobacco: Current AUDIT-C Answer Date Recorded Q1: How often do you have a drink containing alcohol? Never 01/20/2023 Q2: How many drinks containi ng alcohol do you have on a typical day when you are drinking? Patient does not drink Q3: How often do you have si x or more drinks on one occasion? Never 01/20/2023 Comments Unknown Sex and Gender Information Value Date Recorded Sex Assigned at Not on file Legal Sex Female 11:07 PM EDT Gender Identity Not on file Sexual Orientation Not on file documented as of this encounter Plan of Treatment Upcoming Encounters Date Type Department Care Team (Late st Contact Info) Description 01/16/2025 2:10 PM EDT Office Visit [facility] [address] [place], [place] [address] [address] Timmy Smiley, [address] [place] [address] documented as of this encounter Visit Diagnoses Not on filedocumented in this encounter Care Teams Car Repairer Apprentice Relationship Specialty Start Date End Date Kimberly Arauz MD 112 [facility] 110 [place] [address] PCP - General Family Medicine 01/20/23 Gonzales Still LPC Senior Java Web Developer Commuter Pilot 10/02/24 documented as of this encounter
--- OUTSIDE RECORDS SUMMARY | 2025-01-08 08:49 | XMS_ITS | Encounter Summary ---
Author Organization [facility] Address [address] [place] [address] Care Team Providers Care Healthcare Economics Manager Name Role Phone Kimberly Arauz MD Primary Care Provider [phone] Gonzales Still CLINICAL CASE MANAGER Unavailable Unava ilable Encounter Details Date Type Department Care Team (Late st Contact Info) Description 08/24/2024 Orders Only [facility] [address] [facility] [place] [address] [place], [place] [address] [place] [address] Social History Tobacco Use Types Packs/Day Years [...] EDT Office Visit [facility] [address] [place] [address] Timmy Smiley [address] [place] [address] documented as of this encounter Procedures Procedure Name Priority Date/Time Associated Diagnosis Comments PAP SMEAR Routine 08/14/2024 12:00 AM EST documented in this encounter Results * Pap Smear (08/14/2024 12:00 AM EST) Swab Cervical swab / Unknown Timmy Smiley DO LAB CYTOLOGY ORDERABLES Final Re sult EXTERNAL LAB documented in this encounter Visit Diagnoses Not on filedocumented in this encounter Care Teams Healthcare Economics Manager Relationship Specialty Start Date End Date Kimberly Arauz MD 112 [facility] 110 [place] [address] PCP - General Family Medicine 01/20/23 Gonzales Still LPC Cyber Security Specialist Sales Order Processor 10/02/24 documented as of this encounter
--- OUTSIDE RECORDS SUMMARY | 2025-01-08 08:49 | XMS_ITS | Encounter Summary ---
Author Organization [facility] Address [address] [place] [address] Care Team Providers Care Reflesher Name Role Phone Kimberly Blancas MD Primary Care Provider [phone] Gonzales Still CUPOLA HOIST OPERATOR Unavailable Unava ilable Encounter Details Date Type Department Care Team (Late st Contact Info) Description 06/01/2023 Clinisync Result Encounter [facility] External Department Unsolicited Provider, Generic External Data Social History Tobacco Use Types Packs/Day Years [...] 01/16/2025 2:10 PM EDT Office Visit [facility] [address] [place] [address] Timmy Smiley, DO [address] [facility] [place] [address] documented as of this encounter Procedures Procedure Name Priority Date/Time Associated Diagnosis Comments US PELVIS W/ TRANSVAGINAL 06/01/2023 1:12 PM EDT documented in this encounter Results * US PELVIS W/ TRANSVAGINAL (06/01/2023 1:12 PM EDT) Anatomical Region Laterality Modality Other 06/01/2023 1:12 PM EDT Narrative 06/01/2023 1:12 PM EDT [address] [address] Ultrasound Report Signed Patient: Anabel Fatima MR#: [id number] : 1995 Acct:[id number] Age/Sex: 27 / F ADM Date: 06/01/23 Loc: US Attending Dr: Timmy Smiley D.O. Ordering Physician: Timmy Smiley D.O. Date of Service: 06/01/23 Procedure(s): US pelvis w/ transvaginal Accession Number(s): [id number] cc: KIMBERLY BLANCAS ; Timmy Smiley D.O. [address] [id number] Patient Name: ANABEL FATIMA MRN: [id number] date: 1995 Sex: F Assigned Patient Location: US Current Patient Location: US Accession/Order Number: [id number] Exam Date: 06/01/2023 10:58 Report Date: 06/01/2023 13:12 At the request of: TIMMY SMILEY Procedure: US pelvis w/ transvaginal EXAM: US pelvis w/ transvaginal HISTORY: PELVIC PAIN AND DISCHARGE COMPARISON: 02/02/2022 08/01/2022. TECHNIQUE: Pelvic sonography was performed utilizing grayscale and color Doppler technique. FINDINGS: Hysterectomy. Right ovary measures 2.6 x 2.1 x 2.8 cm. Normal right ovarian parenchyma. Left ovary measures 2.6 x 1.2 x 2.0 cm. Normal left ovarian parenchyma. No significant free fluid within the pelvis. US/US pelvis w/ transvaginal IMPRESSION: 1. Hysterectomy. 2. Unremarkable ovaries. Electronically authenticated by: ALVARO WILLETT Date: 06/01/2023 13:12 Dictated By: Alvaro Willett Signed By: 06/01/23 1315 DD/ 131 TD/TT: Display Designer: Procedure Note Radiology, Radiologist, MD - 06/01/2023 [place] [address] Ultrasound Report Signed Patient: Anabel Fatima JMR#: [id number] : 1995Acct:[id number] Age/Sex: 27 / FADM Date: 06/01/23 Loc: US Attending Dr: Timmy Smiley D.O. Ordering Physician: Timmy Smiley D.O. Date of Service: 06/01/23 Procedure(s): US pelvis w/ transvaginal Accession Number(s): [id number] cc: KIMBERLY BLANCAS ; Timmy Smiley D.O. The [place] [id number] Patient Name: ANABEL FATIMA MRN: [id number] date: 1995 Sex: F Assigned Patient Location: US Current Patient Location: US Accession/Order Number: [id number] Exam Date: 06/01/2023 10:58 Report Date: 06/01/2023 13:12 At the request of: TIMMY SMILEY Procedure: US pelvis w/ transvaginal EXAM: US pelvis w/ transvaginal HISTORY: PELVIC PAIN AND DISCHARGE COMPARISON: 02/02/2022 08/01/2022. TECHNIQUE: Pelvic sonography was performed utilizing grayscale and color Doppler technique. FINDINGS: Hysterectomy. Right ovary measures 2.6 x 2.1 x 2.8 cm. Normal right ovarian parenchyma. Left ovary measures 2.6 x 1.2 x 2.0 cm. Normal left ovarian parenchyma. No significant free fluid within the pelvis. US/US pelvis w/ transvaginal IMPRESSION: 1. Hysterectomy. 2. Unremarkable ovaries. Electronically authenticated by: ALVARO WILLETT Date: 06/01/2023 13:12 Dictated By: Alvaro Willett Signed By:06/01/235 DD/ 11 TD/TT: Display Designer: us Generic External Data Provider [facility] Final Result documented in this encounter Visit Diagnoses Not on filedocumented in this encounter Care Teams Reflesher Relationship Specialty Start Date End Date Kimberly Blancas MD [address] [place] [address] PCP - General Family Medicine 01/20/23 Gonzales Still LPC Semiconductor Wafers Etch Operator Oil Program Compliance Specialist 10/02/24 documented as of this encounter
--- OUTSIDE RECORDS SUMMARY | 2025-01-08 08:49 | XMS_ITS | Encounter Summary ---
Author Organization [facility] Address [address] [place] [address] Care Team Providers Care Milieu Therapist Name Role Phone Kimberly Arauz MD Primary Care Provider [phone] Gonzales Still DETAIL MANAGER Unavailable Unava ilable Encounter Details Date Type Department Care Team (Late st Contact Info) Description 10/18/2023 Abstract [facility] [address] [facility] 110 [place] [address] Kimberly Arauz MD 112 [facility] 110 [place], [place] [phone] Social History Tobacco Use Types Packs/Day Years [...] EDT Office Visit [facility] [address] [facility] [place] [address] Timmy Smiley, [address] [facility] [place] [address] documented as of this encounter Visit Diagnoses Not on filedocumented in this encounter Care Teams Milieu Therapist Relationship Specialty Start Date End Date Kimberly Arauz MD 112 [facility] 110 [place] [address] PCP - General Family Medicine 01/20/23 Gonzales Still LPC Auxiliary Operator Marshmallow Runner 10/02/24 documented as of this encounter
--- OUTSIDE RECORDS SUMMARY | 2025-01-08 08:49 | XMS_ITS | Encounter Summary ---
Author Organization [facility] Address [address] [place] [address] Care Team Providers Care Inclusion Teacher Name Role Phone Kimberly Arauz MD Primary Care Provider [phone] Gonzales Still SECTION MAINTAINER Unavailable Unava ilable Encounter Details Date Type Department Care Team (Late st Contact Info) Description 01/02/2025 Telephone [facility] [address] [facility] 110 [place] [address] Kimberly Arauz MD 112 [facility] 110 [place], [place] [phone] Social History Tobacco Use Types Packs/Day Years [...] encounter Miscellaneous Notes * Telephone Encounter - Ailyn Quinn MA - 01/02/2025 2:31 PM EDT Pt notified but would like results to her recent lab if possible stated some were elevated please advise * Telephone Encounter - HOA CONTRERAS - 01/02/2025 1:02 PM EDT Patient called and is asking for an increase in her xanax dosage. She also did say she was given valium in the hospital and that did help as well. She would like to just stay on the Xanax if possible. Please advice. documented in this encounter Plan of Treatment Upcoming Encounters Date Type Department Care Team (Late st Contact Info) Description 01/16/2025 2:10 PM EDT Office Visit [facility] [address] [facility] [place] [address] Timmy Smiley, DO [address] [facility] [address] [place], [place] [address] documented as of this encounter Visit Diagnoses Diagnosis Anxiety Anxiety state, unspecified documented in this encounter Care Teams Inclusion Teacher Relationship Specialty Start Date End Date Kimberly Arauz MD 112 [facility] 110 [place] [address] PCP - General Family Medicine 01/20/23 Gonzales Still LPC Manager Erp Composition Floor Layer 10/02/24 documented as of this encounter
--- OUTSIDE RECORDS SUMMARY | 2025-01-08 08:49 | XMS_ITS | Encounter Summary ---
Author Organization [facility] Address [address] [place] [address] Care Team Providers Care Fruit Or Nut Farmworker Name Role Phone Kimberly Arauz MD Primary Care Provider [phone] Gonzales Still LEAD PRESSMAN ROTO GRAVURE PRINTING Unavailable Unava ilable Encounter Details Date Type Department Care Team (Late st Contact Info) Description 11/20/2024 Abstract [facility] [address] [place] [address] Timmy Smiley, DO [address] [place], [place] [phone] Social History Tobacco Use Types Packs/Day Years [...] Date Recorded Patient Health Questionnaire-2 Score 0 11/23/2024 Comments No Sex and Gender Information Value [...] pleasure in doing things Not at all 11/23/2024 1:36 PM EDT CristalValdemar jonesa, LP N Feeling down, depressed, or hopeless Not at all 11/23/2024 1:36 PM EDT CristalReuben jonesonna, LP N Patient Health Questionnaire -2 Score 0 11/23/2024 1:36 PM EDT Cristal, Emani, LP N documented as of this encounter Plan of Treatment Upcoming Encounters Date Type Department Care Team (Late st Contact Info) Description 01/16/2025 2:10 PM EDT Office Visit [facility] [address] [place] [address] Timmy Smiley DO [address] [place] [address] documented as of this encounter Visit Diagnoses Not on filedocumented in this encounter Care Teams Fruit Or Nut Farmworker Relationship Specialty Start Date End Date Kimberly Arauz MD 112 [facility] 110 [place] [address] PCP - General Family Medicine 01/20/23 Gonzales Still LPC Manager Call Welding Machine Operator Gas 10/02/24 documented as of this encounter
--- OUTSIDE RECORDS SUMMARY | 2025-01-08 08:49 | XMS_ITS | Encounter Summary ---
Author Organization [facility] Address [address] [place] [address] Care Team Providers Care Automotive Service Manager Name Role Phone Kimberly Blancas MD Primary Care Provider [phone] Gonzales Still METAL WORKER Unavailable Unava ilable Encounter Details Date Type Department Care Team (Late st Contact Info) Description 01/27/2024 Clinisync Result Encounter [facility] External Department Unsolicited Kimberly Blancas MD [address] [place] [address] Social History Tobacco Use Types Packs/Day Years [...] EDT Office Visit [facility] OB [address] [facility] [place] [address] Timmy Smiley DO [address] [facility] [place] [address] documented as of this encounter Procedures Procedure Name Priority Date/Time Associated Diagnosis Comments US SOFT TISSUE HEAD AND NECK 01/27/2024 11:10 AM EDT documented in this encounter Results * US SOFT TISSUE HEAD AND NECK (01/27/2024 11:10 AM EDT) Anatomical Region Laterality Modality Other 01/27/2024 11:1 0 AM EDT Narrative 01/27/2024 11:12 AM EDT [address] [address] Ultrasound Report Signed Patient: NAFISA ELLIOTT MR#: [id number] : 1995 Acct:[id number] Age/Sex: 28 / F ADM Date: 01/26/24 Loc: US Attending Dr: KIMBERLY BLANCAS Ordering Physician: KIMBERLY BLANCAS Date of Service: 01/26/24 Procedure(s): US soft tissue head and neck Accession Number(s): [id number] cc: KIMBERLY BLANCAS [address] [address] Patient Name: NAFISA ELLIOTT MRN: [id number] date: 1995 Sex: F Assigned Patient Location: US Current Patient Location: Accession/Order Number: [id number] Exam Date: 01/26/2024 09:35 Report Date: 01/27/2024 11:10 At the request of: KIMBERLY BLANCAS Procedure: US soft tissue head and neck EXAMINATION: US soft tissue head and neck HISTORY: Lump of scalp R22.0 COMPARISON: No relevant comparison available. FINDINGS: Corresponding to patient's palpable lump within the right occipital region is a 10 x 7 x 2 mm hypoechoic area which follows the tissue plane. No appreciable internal blood flow; but there is an adjacent blood vessel. US/US soft tissue head and neck IMPRESSION: 1. Nonspecific subcutaneous nodule versus complex fluid collection corresponding to patient's palpable lump within the right occipital region. Consider clinical follow-up and if changing consider ultrasound-guided tissue sampling. Electronically authenticated by: GABO DRAPER Date: 01/27/2024 11:10 Dictated By: Gabo Draper M.D. Signed By: 01/27/24 1112 DD/ 1110 TD/TT: Track Watchman: Procedure Note Radiology, Radiologist, MD - 01/27/2024 [place] [address] Ultrasound Report Signed Patient: NAFISA ELLIOTT JMR#: [id number] : 1995Acct:[id number] Age/Sex: M Date: 01/26/24 Loc: US Attending Dr: KIMBERLY BLANCAS Ordering Physician: KIMBERLY BLANCAS Date of Service: 01/26/24 Procedure(s): US soft tissue head and neck Accession Number(s): [id number] cc: KIMBERLY BLANCAS [facility] [place] [id number] Patient Name: NAFISA ELLIOTT MRN: [id number] date: 1995 Sex: F Assigned Patient Location: US Current Patient Location: Accession/Order Number: [id number] Exam Date: 01/26/2024 09:35 Report Date: 01/27/2024 11:10 At the request of: KIMBERLY BLANCAS Procedure: US soft tissue head and neck EXAMINATION: US soft tissue head and neck HISTORY: Lump of scalp R22.0 COMPARISON: No relevant comparison available. FINDINGS: Corresponding to patient's palpable lump within the right occipital regionis a 10 x 7 x 2 mm hypoechoic area which follows the tissue plane. Noappreciable internal blood flow; but there is an adjacent blood vessel. US/US soft tissue head and neck IMPRESSION: 1. Nonspecific subcutaneous nodule versus complex fluid collection corresponding to patient's palpable lump within the right occipitalregion. Consider clinical follow-up and if changing consider ultrasound-guidedtissue sampling. Electronically authenticated by: GABO DRAPER Date: 01/27/2024 11:10 Dictated By: Gabo Draper M.D. Signed By:01/27/24 1112 DD/ 1110 TD/TT: Track Watchman: us Kimberly Blancas MD [facility] Final Result documented in this encounter Visit Diagnoses Not on filedocumented in this encounter Care Teams Automotive Service Manager Relationship Specialty Start Date End Date Kimberly Blancas MD [address] [place] [address] PCP - General Family Medicine 01/20/23 Gonzales Still LPC Diploma Medical Assistant Sulfuric Acid Plant Supervisor 10/02/24 documented as of this encounter
--- OUTSIDE RECORDS SUMMARY | 2025-01-08 08:49 | XMS_ITS | Encounter Summary ---
Author Organization [facility] Address [address] [place] [address] Care Team Providers Care Hospitalist Physician Name Role Phone Kimberly Arauz MD Primary Care Provider [phone] Gonzales Still SPA CONSULTANT Unavailable Unava ilable Reason for Visit * Reason Onset Date Comments Med Refill 12/25/2024 Encounter Details Date Type Department Care Team (Late st Contact Info) Description 12/25/2024 Refill [facility] [address] [facility] [address] [place] [address] Kimberly Arauz MD [address] [facility] [address] [place], [place] [id number] Anxiety Social History Tobacco Use Types Packs/Day Years [...] Date Recorded Patient Health Questionnaire-2 Score 0 12/14/2024 Comments No Sex and Gender Information Value Date Recorded Sex Assigned at Not on file Legal Sex Female 11:07 PM EDT Gender Identity Not on file Sexual Orientation Not on file documented as of this encounter Miscellaneous Notes * Telephone Encounter - DENISSE Romero - 12/25/2024 9:28 AM EDT OARRS reviewed, Rx sent into patient's pharmacy. documented in this encounter Plan of Treatment Upcoming Encounters Date Type Department Care Team (Late st Contact Info) Description 01/16/2025 2:10 PM EDT Office Visit [facility] OB [address] [facility] [place] [phone] Timmy Smiley, DO [address] [facility] [place] [address] documented as of this encounter Visit Diagnoses Diagnosis Anxiety Anxiety state, unspecified documented in this encounter Care Teams Hospitalist Physician Relationship Specialty Start Date End Date Kimberly Arauz MD [address] [facility] [address] [place] [address] PCP - General Family Medicine 01/20/23 Gonzales Still LPC Isobutylene Operator Chief Blanking Machine Operator 10/02/24 documented as of this encounter
--- OUTSIDE RECORDS SUMMARY | 2025-01-08 08:49 | XMS_ITS | Clinical Summary ---
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 Narrative Resulting Agency Comment Performing Organization Information Site ID: QPT Name: [facility] Address: [address] [place] [address], [address] [place], [place] [id number] Director: Manuel Azar MD Kimberly Blancas MD LAB BLOOD ORDERABLES Final Resul t Performing Organization Address [facility] de Phone Number [facility] from Last 3 Months Insurance [facility] [employer] Care Teams Pillar Worker Relationship Specialty Start Date End Date Kimberly Blancas MD [address] [facility] [[email or web address]] [address] [place] [address] PCP - General Family Medicine 01/20/23 Gonzales Still LPC Maintenance And Repair Worker Lead Relay Tester 10/02/24
--- OUTSIDE RECORDS SUMMARY | 2025-01-08 08:49 | XMS_ITS | Clinical Summary ---
Author Organization [facility] Address [address] [address] Care Team Providers Care Dam Tender Name Role Phone Kimberly Arauz MD Primary Care Provider [phone] Allergies Active Allergy Reactions Criticality Noted Date Comments Alprazolam 02/08/2020 Basil Oil 05/16/2024 numbness Bisacodyl Rash Low 02/08/2020 Buspirone 05/16/2024 Hydroxyzine Pamoate 08/30/2020 Methylprednisolone 02/08/2020 Metronidazole 02/08/2020 ` Medications ARIPiprazole (ABILIFY) 5 MG tablet Take 1 tablet by mouth daily 08/17/2023 Active escitalopram (LEXAPRO) 20 MG tablet Take 1 tablet by mouth daily Active LORazepam (ATIVAN) 0.5 MG tablet Take 1 tablet by mouth every 6 hours as needed for Anxiety. Active Active Problems No known active problems Family History Medical History Relation Name Comments Down Syndrome Brother Heart Disease Father Mental Illness Father Cervical Cancer Mother mardel Diabetes Mother mardel Relation Name Status Comments Brother Daughter Alive Father Alive Mother mardel Alive Sister 1 Alive Sister 2 Alive Son 1 Alive Son 2 Alive Social History Tobacco Use Types Packs/Day Years Used Date Smoking Tobacco: Every Day Cigarettes Smokeless Tobacco: Never Tobacco Cessation:Ready to Q uit: Not Asked; Counseling Given: Not Answered Alcohol Use Standard Drinks/Week Comments Yes 0 (1 standard drink = 0.6 oz pur e alcohol) social Comments No Sex and Gender Information Value Date Recorded Sex Assigned at Not on file Legal Sex Female 12:03 AM EST Gender Identity Not on file Sexual Orientation Not on file Last Filed Vital Signs Vital Sign Reading Time Taken Comments Blood Pressure 89/49 05/19/2024 9:08 AM EDT Pulse 79 05/19/2024 9:08 AM EDT Temperature 36.7 C (98 F) 05/19/2024 9:08 AM EDT Respiratory Rate - - Oxygen Saturation 97% 05/19/2024 9:08 AM EDT Inhaled Oxygen Concentration - - Weight 64.9 kg (143 lb) 05/19/2024 9:08 AM EDT Height 152.4 cm (5') 05/19/2024 9:08 AM EDT Body Mass Index 27.93 05/19/2024 9:08 AM EDT Plan of Treatment Health Maintenance Due Date Last Done Comments Hepatitis B vaccine (3 of 3 - 3-dose series) 09/04/1998 07/10/1998, 02/11/1998 Depression Screen 2009 Varicella vaccine (1 of 2 - 13+ 2-dose series) 2010 HIV screen 2012 Hepatitis C screen 12/03/2015 Pneumococcal 0-49 years Vaccine (1 of 2 - PCV) 2016 DTaP/Tdap/Td vaccine (7 - Td or Tdap) 04/04/2020 04/04/2010, 10/17/2002, 05/27/1999, Additional history exists COVID-19 Vaccine ( - season) 2024 Flu vaccine (Season Ended) 2025 Hib vaccine Completed 05/27/1999, 09/1997, 04/19/1998, Additional history exists Polio vaccine Completed 10/17/2002, 04/09, 02/11/1998 HPV vaccine Completed 08/29/2013, 02/06, 12/13/2012 Hepatitis A vaccine Completed 08/29/2013, 3 Meningococcal (ACWY) vaccine Aged Out 12/07/2017, 04/04/2010 No longer eligible based on patient's age to complete this topic Meningococcal B vaccine Aged Out No l onger eligible based on patient's age to complete this topic [place] [place] [address] Care Teams Dam Tender Relationship Specialty Start Date End Date Kimberly Arauz MD 112 [facility] 110 [place] [address] PCP - General Family Medicine 05/19/24
--- OUTSIDE RECORDS SUMMARY | 2025-01-08 08:49 | XMS_ITS | Encounter Summary ---
Author Organization SOLOs tem Address [id number] [address] [place] [address] Care Team Providers Care Corporate Planning Manager Name Role Phone Kimberly Arauz MD Primary Care Provider [phone] Reason for Visit * Reason Onset Date Comments Hospital Follow-up 12/06/2024 Encounter Details Date Type Department Care Team (Late st Contact Info) Description 12/06/2024 Telephone [facility] [address] [place] [address] [facility] Follow-up Social History Tobacco Use Types Packs/Day Years Used Date Smoking Tobacco: Every Day Cigarettes Smokeless Tobacco: Never Alcohol Use Standard Drinks/Week Comments Not Currently 0 (1 standard drink = 0.6 oz pur e alcohol) [facility] Utilities Answer Date Recorded In the past 12 months has th e electric, gas, oil, or water company [...] on file documented as of this encounter Mental Status * Question Answer Entry Date Author Overall Cognitive Status WFL 12/09/2024 8:59 AM EDT Selina Yeung OTR/L documented in this encounter Miscellaneous Notes * Telephone Encounter - Elza Tolliver - 12/06/2024 7:42 AM EDT Message from the 12/05/24 discharge list per MMM. He signed off patient care from [facility] Dx 1. Bradycardia seems to be increased vagal tone from pain she is getting pain medications. 2. Minimal elevation troponin secondary to stress syndrome but I do not see significant elevation to suggest contusion Patient to f/u in 1 to 2 weeks post d/c bvb * Telephone Encounter - Yajaira Dawn - 12/06/2024 7:42 AM EDT 12/06 pt currently admitted * Telephone Encounter - Cristina Huang CMA - 12/06/2024 7:42 AM EDT Pt still currently admitted 12/06/24 [facility] * Telephone Encounter - Cristina Huang CMA - 12/06/2024 7:42 AM EDT PT STILL CURRENTLY ADMITTED [facility] 12/08/2024 * Telephone Encounter - Betzy Mackey CMA - 12/06/2024 7:42 AM EDT PT STILL CURRENTLY ADMITTED OF 12/11/24 * Telephone Encounter - Priyanka Stanton - 12/06/2024 7:42 AM EDT PT STILL ADMITTED * Telephone Encounter - Priyanka Stanton - 12/06/2024 7:42 AM EDT Attempted to call pt, unable to complete your call at this time message comes on x's 2. * Telephone Encounter - Carmen Aguilar CMA - 12/06/2024 7:42 AM EDT Attempted to reach patient. Recording unable to complete your call at this time please hang up andtry again later message came on. * Telephone Encounter - Carmen Aguilar CMA - 12/06/2024 7:42 AM EDT Attempted to reach spouse to schedule appointment/speak with patient. Mailbox is full and unable toaccept any messages. * Telephone Encounter - Carmen Aguilar CMA - 12/06/2024 7:42 AM EDT Multiple attempts made to phone numbers to reach patient. Unable to reach patient to schedule appointment. Letter mailed to patient on 12/14/24 documented in this encounter Plan of Treatment Upcoming Encounters Date Type Department Care Team (Late st Contact Info) Description 01/08/2025 3:30 PM EDT Office Visit [facility] [address] [place] [address] Carole Tyson, DO [address] [place] [address] 01/09/2025 9:30 AM EDT Office Visit [facility] [address] [place] [address] Wolf Martell MD [address] [place], [place] [id number] documented as of this encounter Goals Goal Patient Goal Type Associated Problems Recent Progress Patient-Stated? Author Safe discharge General Yes Mia Castro, RN Note: Evaluation of progress towards goal: Pt will be open to safe discharge recs. documented as of this encounter Visit Diagnoses Not on filedocumented in this encounter Additional Health Concerns Assessment Noted Time PHQ-9 Depression Total Score: 0 12/05/19 3:55 PM EDT documented as of this encounter Care Teams Corporate Planning Manager Relationship Specialty Start Date End Date Kimberly Arauz MD [address] [place] [address] PCP - General Family Medicine 04/01/24 documented as of this encounter
--- OUTSIDE RECORDS SUMMARY | 2025-01-08 08:49 | XMS_ITS | Encounter Summary ---
Author Organization Sealed [employer] tem Address [id number] [address] [place] [address] Care Team Providers Care Senior Validation Engineer Name Role Phone Kimberly Arauz MD Primary Care Provider [phone] Encounter Details Date Type Department Care Team (Late st Contact Info) Description 12/12/2024 Telephone [facility] [address] [place] [address] Pinky Ramos, JULIO Social History Tobacco Use Types Packs/Day Years Used Date Smoking Tobacco: Every Day Cigarettes Smokeless Tobacco: Never Alcohol Use Standard Drinks/Week Comments Not Currently 0 (1 standard drink = 0.6 oz pur e alcohol) [facility] Utilities Answer Date Recorded In the past 12 months has [employer], gas, oil, or water [employer] threatened to shut off services in your [...] Telephone Encounter - Pinky Ramos CMA - 12/12/2024 9:59 AM EDT Called patient, call couldn't be completed. documented in this encounter Plan of Treatment Upcoming Encounters Date Type Department Care Team (Late st Contact Info) Description 01/08/2025 3:30 PM EDT Office Visit [facility] [address] [place] [address] Carole yTson M, DO [address] [place] [address] 01/09/2025 9:30 AM EDT Office Visit [facility] [address] [place] [address] Wolf Martell MD [address] [place] [address] documented as of this encounter Goals Goal [...] documented as of this encounter Care Teams Senior Validation Engineer Relationship Specialty Start Date End Date Kimberly Arauz MD 112 [facility] 110 [place] [address] PCP - General Family Medicine 04/01/24 documented as of this encounter
--- OUTSIDE RECORDS SUMMARY | 2025-01-08 08:50 | XMS_ITS | Encounter Summary ---
Author Organization [facility] Address [address] [place] [address] Care Team Providers Care Bacon Slicer Name Role Phone Kimberly Arauz MD Primary Care Provider [phone] Gonzales Still MALTHOUSE LABORER Unavailable Unava ilable Encounter Details Date Type Department Care Team (Late st Contact Info) Description 06/02/2023 Orders Only [facility] [address] [place] [phone] A, Unknown Practice [address] [place], [place] [phone] Social History Tobacco Use Types Packs/Day Years [...] EDT Office Visit [facility] [address] [place] [address] Timmy Smiley, [address] [facility] [place] [address] documented as of this encounter Procedures Procedure Name Priority Date/Time Associated Diagnosis Comments US PELVIS TRANSVAGINAL Routine 06/01/2023 8:55 AM EDT documented in this encounter Results * US pelvis transvaginal (06/01/2023 8:55 AM EDT) Anatomical Region Laterality Modality Pelvis Ultrasound us Unknown Practice A IMG US PROCEDURES Final Resul t documented in this encounter Visit Diagnoses Not on filedocumented in this encounter Care Teams Bacon Slicer Relationship Specialty Start Date End Date Kimberly Arauz MD 112 [facility] 110 [place] [address] PCP - General Family Medicine 01/20/23 Gonzales Still LPC Loan Originator Business Continuity Analyst 10/02/24 documented as of this encounter
--- OUTSIDE RECORDS SUMMARY | 2025-01-08 08:50 | XMS_ITS | Encounter Summary ---
Author Organization [facility] Address [address] [place] [address] Care Team Providers Care Creeler Name Role Phone Kimberly Arauz MD Primary Care Provider [phone] Gonzales Still SECURITY SITE SUPERVISOR Unavailable Unava ilable Encounter Details Date Type Department Care Team (Late st Contact Info) Description 01/05/2025 Telephone [facility] [address] [facility] 110 [place] [address] Kimberly Arauz MD 112 [facility] 110 [place], [place] [phone] Social History Tobacco Use Types Packs/Day Years [...] encounter Miscellaneous Notes * Telephone Encounter - HOA CONTRERAS - 01/05/2025 11:32 AM EDT Patient notified and will go to The Urgent Care * Telephone Encounter - DENISSE Romero - 01/05/2025 11:24 AM EDT Needs to give urine sample. If she cannot get to our office today by noon, would recommend Urgent Care. * Telephone Encounter - HOA CONTRERAS - 01/05/2025 9:37 AM EDT Patient called and thinks she may have a UTI. She is having burning with urination for the last 2 days. Please Advise documented in this encounter Plan of Treatment Upcoming Encounters Date Type Department Care Team (Late st Contact Info) Description 01/16/2025 2:10 PM EDT Office Visit [facility] [address] [place] [address] Timmy Smiley DO [address] [facility] [address] documented as of this encounter Visit Diagnoses Not on filedocumented in this encounter Care Teams Creeler Relationship Specialty Start Date End Date Kimberly Arauz MD [address] [facility] 110 [place] [address] PCP - General Family Medicine 01/20/23 Gonzales Still LPC Collateral Specialist Milling Machine Operator 10/02/24 documented as of this encounter
--- OUTSIDE RECORDS SUMMARY | 2025-01-08 08:50 | XMS_ITS | Encounter Summary ---
Author Organization [facility] Address [address] [place] [address] Care Team Providers Care Lead Burner Supervisor Name Role Phone Kimberly Arauz MD Primary Care Provider [phone] Gonzales Still JEWEL STRINGER Unavailable Unava ilable Encounter Details Date Type Department Care Team (Late Contact Info) Description 01/21/2023 Abstract [facility] [address] [facility] 110 [place] [address] Minoo Barbour PA [address] [place] [facility] 110 [place] [address] Social History Tobacco Use Types Packs/Day Years [...] PM EDT Office Visit [facility] [address] [place], [place] [address] [place] [address] Timmy Smiley, [address] [place] [address] documented as of this encounter Visit Diagnoses Not on filedocumented in this encounter Care Teams Lead Burner Supervisor Relationship Specialty Start Date End Date Kimberly Arauz MD 112 [facility] 110 [place] [address] PCP - General Family Medicine 01/20/23 Gonzales Still LPC Trench Pipe Layer Helper Director Of Product Design 10/02/24 documented as of this encounter
--- OUTSIDE RECORDS SUMMARY | 2025-01-08 08:50 | XMS_ITS | Encounter Summary ---
Author Organization [facility] Address [address] [place] [address] Care Team Providers Care Plastic Outfitter Name Role Phone Kimberly Arauz MD Primary Care Provider [phone] Gonzales Still PROFESSIONAL HEALTHCARE REPRESENTATIVE Unavailable Unava ilable Encounter Details Date Type Department Care Team (Late st Contact Info) Description 01/25/2023 Orders Only [facility] [address] [facility] 110 [place] [address] Minoo Barbour PA [address] [facility] 110 [place] [address] Social History Tobacco Use Types Packs/Day Years [...] PM EDT Office Visit [facility] [place] [address] Timmy Smiley, [address] [place] [address] [address] [place], [place] [id number] documented as of this encounter Procedures Procedure Name Priority Date/Time Associated Diagnosis Comments SCANNED LABS Routine 01/23/2023 11:05 AM EDT documented in this encounter Results * SCANNED LABS (01/23/2023 11:05 AM EDT) [facility] CHG PERFORMABLES Final Res ult documented in this encounter Visit Diagnoses Not on filedocumented in this encounter Care Teams Plastic Outfitter Relationship Specialty Start Date End Date Kimberly Arauz MD [address] [facility] 110 [place] [address] PCP - General Family Medicine 01/20/23 Gonzales Still LPC Dampener Rn Patient Services 10/02/24 documented as of this encounter
--- OUTSIDE RECORDS SUMMARY | 2025-01-08 08:50 | XMS_ITS | Encounter Summary ---
Author Organization [facility] Address [address] [place] [address] Care Team Providers Care Healthcare Educator Name Role Phone Kimberly Arauz MD Primary Care Provider [phone] Gonzales Still SPINNING FRAME CLEANER Unavailable Unava ilable Encounter Details Date Type Department Care Team (Late st Contact Info) Description 01/05/2025 Telephone [facility] [address] [facility] 110 [place] [address] Kimberly Arauz MD 112 [facility] 110 [place], [place] [id number] Social History Tobacco Use Types Packs/Day Years [...] encounter Miscellaneous Notes * Telephone Encounter - BENCURLY HOLLANDA - 01/05/2025 9:34 AM EDT Patient called and things she mat have a UTI, I advised her to call her OB. documented in this encounter Plan of Treatment Upcoming Encounters Date Type Department Care Team (Late st Contact Info) Description 01/16/2025 2:10 PM EDT Office Visit [facility] [address] [facility] [place] [address] Timmy Smiley DO [address] [facility] [place] [address] documented as of this encounter Visit Diagnoses Not on filedocumented in this encounter Care Teams Healthcare Educator Relationship Specialty Start Date End Date Kimberly Arauz MD [address] [facility] [place] [facility] [address] [place] [address] PCP - General Family Medicine 01/20/23 Gonzales Still LPC Turning Machine Set Up Operator Order Desk Caller 10/02/24 documented as of this encounter
== END 2025-01-08 08:47 | disposition home or self-care (01) ==
LOC: CARD 08:47
PROVIDERS: PCP Family Medicine; Visit Provider Physician Assistant
DX: I49.9 Cardiac arrhythmia, unspecified (principal)

== ENCOUNTER 2025-01-17 08:16 | Outpatient (OUT) | payer BC, OTHER, SELFPAY ==
--- OUTSIDE RECORDS SUMMARY | 2013-12-28 10:30 | XMS_ITS | Encounter Summary ---
Author Organization [facility] Address [address] [place] [address] Care Team Providers Care Rotor Assembler Name Role Phone Unavailable Primary Care Provider Unavailabl e Encounter Details Date Type Department Care Team (Late st Contact Info) Description 12/28/2013 10:30 AM EDT Hospital Encounter [facility] [address] [place] [address] Tamie Wei MD [address] [place] [address] Social History Tobacco Use Types Packs/Day Years [...]
--- OUTSIDE RECORDS SUMMARY | 2024-08-14 05:45 | XMS_ITS ---
Author Organization [facility] Address [address] [place] [address] Care Team Providers Care Human Relations Manager Name Role Phone Bekah Helms Primary Care Provider Dr. Justino Solo Unavailable [phone] REASON FOR VISIT FILLING Encounters Encounter Location Date Provider Diagnosis [facility] [address] [place] [address] 08/14/2024 Justino Solo Plan Of Treatment No Information Progress Notes * NAFISA ELLIOTTDOB:1995 (29 yo F)Acc No.[id number]:08/14/2024 Patient: NAFISA ROBERTS Provider: Joshua Solo DDS :1995 A ge:28 Y S ex:Female Date:08/14/2024 Address:[address] [place] [address] , [id number] Pcp:Bekah Helms Subjective: * Chief Complaints: * 1 . FILLING. * Medical History: Objective: * Vitals: Assessment: Plan: * Treatment: * Images: * Electronic signature of Dr. Justino Solo , DMD on 01/17/2025 at 08:20 AM EDT Sign off status: Pending * Provider: Joshua Solo DDS Date: 0 08/14/2024 Generated for Gabyi ng/Fashawng/eTransmitting on: 0 01/17/2025 08:20 AM EDT
--- OUTSIDE RECORDS SUMMARY | 2024-12-25 09:45 | XMS_ITS ---
Author Organization [facility] Address [address] [place] [address] Care Team Providers Care Biomass Boiler Operator Name Role Phone Bekah Helms Primary Care Provider Dr. Justino Solo Unavailable [phone] REASON FOR VISIT FILLING Encounters Encounter Location Date Provider Diagnosis [facility] [address] [place] [address] 12/25/2024 Justino Solo Plan Of Treatment No Information Progress Notes * NAFISA ELLIOTTDOB:1995 (29 yo F)Acc No.[id number]:12/25/2024 Patient: NAFISA ROBERTS Provider: Joshua Solo DDS :1995 A ge:29 Y S ex:Female Date:12/25/2024 Address:[address] [place] [address] , [address], [id number] Pcp:Bekah Helms Subjective: * Chief Complaints: * 1 . FILLING. * Medical History: Objective: * Vitals: Assessment: Plan: * Treatment: * Images: * Electronic signature of Dr. Justino Solo , DMD on 01/17/2025 at 08:20 AM EDT Sign off status: Pending * Provider: Joshua Solo DDS Date: 12/25/2024 Generated for Gabyi ng/Fashawng/eTransmitting on: 01/17/2025 08:20 AM EDT
--- OUTSIDE RECORDS SUMMARY | 2025-01-16 14:10 | XMS_ITS | Encounter Summary ---
Author Organization [facility] Address [address] [place] [address] Care Team Providers Care Route Clerk Name Role Phone Kimberly Arauz MD Primary Care Provider [phone] Joaquin-Gonzales Emerson MANAGER FINE Unavailable Unava ilable Reason for Visit * Reason Comments Hormones Encounter Details Date Type Department Care Team (Late st Contact Info) Description 01/16/2025 2:10 PM EDT Office Visit [facility] [address] [place] [address] Timmy Smiley, DO [address] [place], [facility] Hormone disorder Social History Tobacco Use Types Packs/Day Years [...] Sign Reading Time Taken Comments Blood Pressure 120/60 01/16/2025 2:15 PM EDT Pulse - - Temperature - - Respiratory Rate - - Oxygen Saturation - - Inhaled Oxygen Concentration - - Weight 56.2 kg (123 lb 12.8 oz) 01/16/2025 2:15 PM EDT Height - - Body Mass Index 24.18 12/28/2024 2:40 PM EDT documented in this encounter Plan of Treatment Scheduled Orders Name Type Priority Associated Diagnoses Orde r Schedule Estradiol Lab Routine Hormone disorder Ordered: 01/16/2025 Estrone Lab Routine Hormone disorder Ordered: 01/16/2025 Cortisol, free Lab Routine Hormone disorder Expected: 01/16/2025 (Approximate), Expires: 01/16/2026 DHEA-sulfate Lab Routine Hormone disorder Ordered: 01/16/2025 Sex hormone binding globulin Lab Routine Hormone disorder Ordered: 01/16/2025 Insulin, total Lab Routine Hormone disorder Expected: 01/16/2025 (Approximate), Expires: 01/16/2026 Serotonin serum Lab Routine Hormone disorder Expected: 01/16/2025 (Approximate), Expires: 01/16/2026 TSH Lab Routine Hormone disorder Ordered: 01/16/2025 T4, free Lab Routine Hormone disorder Ordered: 01/16/2025 T3, reverse Lab Routine Hormone disorder Ordered: 01/16/2025 Progesterone Lab Routine Hormone disorder Ordered: 01/16/2025 Vitamin D 1,25 dihydroxy Lab Routine Hormone disorder Ordered: 01/16/2025 Ferritin Lab Routine Hormone disorder Ordered: 01/16/2025 T3, free Lab Routine Hormone disorder Ordered: 01/16/2025 Thyroglobulin Lab Routine Hormone disorder Expected: 01/16/2025 (Approximate), Expires: 01/16/2026 Thyroglobulin Antibody Lab Routine Hormone disorder Expected: 01/16/2025 (Approximate), Expires: 01/16/2026 Thyroid peroxidase antibody Lab Routine Hormone disorder Ordered: 01/16/2025 T4 Lab Routine Hormone disorder Expected: 01/16/2025 (Approximate), Expires: 01/16/2026 TESTOSTERONE, FREE Lab Routine Hormone disorder Ordered: 01/16/2025 Testosterone, free, total Lab Routine Hormone disorder Ordered: 01/16/2025 Hemoglobin A1c Lab Routine Hormone disorder Ordered: 01/16/2025 Glucose, random Lab Routine Hormone disorder Expected: 01/16/2025 (Approximate), Expires: 01/16/2026 C-peptide Lab Routine Hormone disorder Expected: 01/16/2025 (Approximate), Expires: 01/16/2026 documented as of this encounter Visit Diagnoses Diagnosis Hormone disorder Unspecified endocrine disorder documented in this encounter Care Teams Route Clerk Relationship Specialty Start Date End Date Kimberly Arauz MD [address] [place] [address] PCP - General Family Medicine 01/20/23 Gonzales Still LPC Oracle Erp Architect Investment Director 10/02/24 documented as of this encounter
--- OUTSIDE RECORDS SUMMARY | 2025-01-17 08:19 | XMS_ITS | Encounter Summary ---
Author Organization [facility] Address [id number] [address] [place] [address] Care Team Providers Care Pelt Grader Name Role Phone Kimberly Arauz MD Primary Care Provider Encounter Details Date Type Department Care Team (Late st Contact Info) Description 01/08/2025 Telephone [facility] [address] [place] [id number] Cristina Huang CMA Social History Tobacco Use Types Packs/Day Years Used Date Smoking Tobacco: Every Day Cigarettes Smokeless Tobacco: Never Alcohol Use Standard Drinks/Week Comments Not Currently 0 (1 standard drink = 0.6 oz pur e alcohol) [facility] Utilities Answer Date Recorded In the past 12 months has e [employer], gas, oil, or water [employer] threatened to shut off services in your [...] got money to buy more. Never True 01/08/2025 Within the past 12 months th e food we bought just didn't last and we didn't have money to get more. Never True 01/08/2025 Purpose - Life Answer Date Recorded Purpose [...] encounter Miscellaneous Notes * Telephone Encounter - Cristina Huang CMA - 01/08/2025 8:58 AM EDT Left message for patient to remind them to bring their most current medication list with them to their appointment. documented in this encounter Plan of Treatment Upcoming Encounters Date Type Department Care Team (Late st Contact Info) Description 02/26/2025 3:30 PM EDT Office Visit [facility] [place] [address] Carole Tyson, 2109 [facility] [address] [place] [address] documented as of this encounter Goals Goal [...] documented as of this encounter Care Teams Pelt Grader Relationship Specialty Start Date End Date Kimberly Arauz MD 112 [facility] 110 [place] [address] PCP - General Family Medicine 04/01/24 documented as of this encounter
--- OUTSIDE RECORDS SUMMARY | 2025-01-17 08:20 | XMS_ITS | Encounter Summary ---
Author Organization [facility] Address [address] [place] [address] Care Team Providers Care Architectural Draftsperson Name Role Phone Kimberly Blancas MD Primary Care Provider [phone] Gonzales Still COREMAKING SUPERVISOR Unavailable Unava ilable Encounter Details Date Type Department Care Team (Late st Contact Info) Description 02/04/2024 Clinisync Result Encounter [facility] External Department Unsolicited Jake Barbour PA [address] [facility] [address] [place] [address] Social History Tobacco Use Types Packs/Day Years [...] on file documented as of this encounter Procedures Procedure Name Priority Date/Time Associated Diagnosis Comments US BIOPSY FNA 02/04/2024 1:28 PM EDT documented in this encounter Results * US BIOPSY FNA (02/04/2024 1:28 PM EDT) Anatomical Region Laterality Modality Other 02/04/2024 1:28 PM EDT Narrative 02/04/2024 1:31 [place] [address] Ultrasound Report Signed Patient: Anabel Fatima MR#: [id number] : 1995 Acct:[id number] Age/Sex: 28 / F ADM Date: 02/04/24 Loc: US Attending Dr: JAKE BARBOUR Ordering Physician: JAKE BARBOUR Date of Service: 02/04/24 Procedure(s): US biopsy FNA Accession Number(s): [id number] cc: KIMBERLY BLANCAS ; JAKE BARBOUR [place] [address] Patient Name: ANABEL FATIMA MRN: [id number] date: 1995 Sex: F Assigned Patient Location: US Current Patient Location: US Accession/Order Number: [id number] Exam Date: 02/04/2024 12:25 Report Date: 02/04/2024 [...] By: Kati Bradshaw M.D. Signed By: 02/04/24 133 DD/ 1328 TD/TT: Med Admin: Procedure Note Radiology, Radiologist, MD - 02/04/2024 [place] [address] Ultrasound Report Signed Patient: Anabel Fatima R#: [id number] : 1995Acct:[id number] Age/Sex: Date: 02/04/24 Loc: US Attending Dr: JAKE BARBOUR Ordering Physician: JAKE BARBOUR Date of Service: 02/04/24 Procedure(s): US biopsy FNA Accession Number(s): [id number] cc: KIMBERLY BLANCAS ; JAKE BARBOUR [place] [id number] Patient Name: ANABEL FATIMA MRN: [id number] date: 1995 Sex: F Assigned Patient Location: US Current Patient Location: US Accession/Order Number: [id number] Exam Date: 02/04/2024 12:25 Report Date: 02/04/2024 [...] M.D. Signed By:02/04/24 1331 DD/ 1328 TD/TT: Med Admin: us Jake SALCEDO [facility] Final Result documented in this encounter Visit Diagnoses Not on filedocumented in this encounter Care Teams Architectural Draftsperson Relationship Specialty Start Date End Date Kimberly Blancas MD [address] [place] [address] PCP - General Family Medicine 01/20/23 Gonzales Still LPC Sql Database Developer Psych Sales Specialist 10/02/24 documented as of this encounter
--- OUTSIDE RECORDS SUMMARY | 2025-01-17 08:20 | XMS_ITS | Encounter Summary ---
Author Organization [facility] Address [address] [place] [address] Care Team Providers Care Pediatric Cns Name Role Phone Kimberly Arauz MD Primary Care Provider [phone] Gonzales Still MARKETING SUPPORT MANAGER Unavailable Unava ilable Encounter Details Date Type Department Care Team (Late st Contact Info) Description 02/07/2024 Orders Only [facility] [address] [facility] 110 [place] [address] Minoo Barbour PA [address] [facility] 110 [place] [address] Lump of scalp Social History Tobacco Use [...] scalp documented in this encounter Care Teams Pediatric Cns Relationship Specialty Start Date End Date Kimberly Arauz MD 112 [facility] 110 [place] [address] PCP - General Family Medicine 01/20/23 Gonzales Still LPC Coremaker Negotiations Director 10/02/24 documented as of this encounter
--- OUTSIDE RECORDS SUMMARY | 2025-01-17 08:20 | XMS_ITS | Encounter Summary ---
Author Organization [employer] [facility] Address [id number] [address] [place] [address] Care Team Providers Care Affiliate Marketing Manager Name Role Phone Kimberly Arauz MD Primary Care Provider [phone] Reason for Referral * Diagnostic Imaging (Routine) - Pending Review Specialty Diagnoses / Procedures Referred By Contac t Referred To Contact Radiology Diagnoses Pain Procedures CT angiogram chest [facility] [address] [place] [phone] Phone: tel: fax: Referral ID Status Reason Start Date Expiration Date V isits Requested Visits Authorized [id number] Pending Review 12/04/2024 12/04/2025 1 1 * Diagnostic Imaging (Routine) - Pending Review Specialty Diagnoses / Procedures Referred By Contac t Referred To Contact Radiology Diagnoses Pain Procedures CT brain without contrast [facility] [address] [place] [phone] Phone: tel: fax: Referral ID Status Reason Start Date Expiration Date V isits Requested Visits Authorized [id number] Pending Review 12/04/2024 12/04/2025 1 1 * Diagnostic Imaging (Routine) - Pending Review Specialty Diagnoses / Procedures Referred By Contac t Referred To Contact Radiology Diagnoses Pain Procedures CT cervical spine without contrast [facility] [address] [place] [phone] Phone: tel: fax: Referral ID Status Reason Start Date Expiration Date V isits Requested Visits Authorized [id number] Pending Review 12/04/2024 12/04/2025 1 1 * Diagnostic Imaging (Routine) - Pending Review Specialty Diagnoses / Procedures Referred By Contac t Referred To Contact Radiology Diagnoses Pain Procedures CT angiogram abdomen and pelvis [facility] [address] [place] [phone] Phone: tel: fax: Referral ID Status Reason Start Date Expiration Date V isits Requested Visits Authorized [id number] Pending Review 12/04/2024 12/04/2025 1 1 Encounter Details Date Type Department Care Team (Late st Contact Info) Description 12/04/2024 Orders Only [facility] [address] [place] [phone] Transcribe, Orders Support User Pain (Primary Dx) Social History Tobacco Use Types Packs/Day Years Used Date Smoking Tobacco: Every Day Cigarettes Smokeless Tobacco: Never Alcohol Use Standard Drinks/Week Comments Not Currently 0 (1 standard drink = 0.6 oz pur e alcohol) [facility] Utilities Answer Date Recorded In the past 12 months has [employer], gas, oil, or water [employer] threatened to shut off services in your [...] Description 02/26/2025 3:30 PM EDT Office Visit [facility] [place] [address] [place] [address] Carole Tyson, 2[address] [facility] [address] [place] [address] documented as of this encounter Goals Goal Patient Goal Type Associated Problems Recent Progress Patient-Stated? Author Safe discharge General Yes Mia Castro RN Note: Evaluation of progress towards goal: [...] with the renal veins There is a aipmv-bc-neijoffc amount of fluid and blood in the [...] combination withthree- dimensional and/or maximum intensity projections geetaconstrumercy Automated exposure control was utilized All CT scans at this facility use dose modulation, iterativereconstruction, and/or weight based dosing when appropriate to reduceradiation dose to as low as reasonably achievable.. Initial study performed on December 04 Second opinion was requested by Dr. 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 [facility] [...] documented as of this encounter Care Teams Affiliate Marketing Manager Relationship Specialty Start Date End Date Kimberly Arauz MD [address] [address] PCP - General Family Medicine 04/01/24 documented as of this encounter
--- OUTSIDE RECORDS SUMMARY | 2025-01-17 08:20 | XMS_ITS | Encounter Summary ---
Author Organization [facility] Address [address] [place] [address] Care Team Providers Care Outdoor Advertising Leasing Agent Name Role Phone Kimberly Arauz MD Primary Care Provider [phone] Gonzales Still MATCH MARKER Unavailable Unava ilable Encounter Details Date Type Department Care Team (Late st Contact Info) Description 02/15/2024 Orders Only [facility] [address] [place] [address] Unallocated, Noms Provider, [address] [place], [place] [address] Social History Tobacco Use Types Packs/Day Years [...] Radiographic Alice ging us Noms Provider Unallocated MD BUSCH XR PROCEDURES F inal Result documented in this encounter Visit Diagnoses Not on filedocumented in this encounter Care Teams Outdoor Advertising Leasing Agent Relationship Specialty Start Date End Date Kimberly Arauz MD 112 [place] [address] PCP - General Family Medicine 01/20/23 Gonzales Still LPC Press Clippings Cutter And Paster Insurance Auditor 10/02/24 documented as of this encounter
--- OUTSIDE RECORDS SUMMARY | 2025-01-17 08:20 | XMS_ITS | Encounter Summary ---
Author Organization [employer] [facility] Address [id number] [address] [place] [address] Care Team Providers Care Cloth Desizing Range Tender Name Role Phone Kimberly Arauz MD Primary Care Provider [phone] Encounter Details Date Type Department Care Team (Late st Contact Info) Description 10/18/2020 Orders Only [facility] Medicine [address] [facility] [place] [address] Nat Lowry MA Social History Tobacco Use [...] Visit [facility] [place] [place] [address] Carole Tyson, DO 2[address] [facility] [address] [place] [address] documented as of this encounter Visit Diagnoses Not on filedocumented in this encounter Care Teams Cloth Desizing Range Tender Relationship Specialty Start Date End Date Kimberly Arauz MD 112 [facility] 110 [place] [address] PCP - General Family Medicine 04/01/24 documented as of this encounter
--- OUTSIDE RECORDS SUMMARY | 2025-01-17 08:21 | XMS_ITS | Encounter Summary ---
Author Organization [facility] Address [address] [place] [address] Care Team Providers Care Business Manager College Or University Name Role Phone Kimberly Arauz MD Primary Care Provider [phone] Gonzales Still ELECTRICAL CONTRACTOR Unavailable Unava ilable Reason for Visit * Reason Onset Date Comments medication dosing/directions 01/11/2025 Encounter Details Date Type Department Care Team (Late st Contact Info) Description 01/11/2025 Telephone [facility] 112 [facility] 110 [place] [address] Kimberly Arauz MD 112 [facility] 110 [place], [place] [id number] medication dosing/directions Social History Tobacco Use Types Packs/Day Years [...] Telephone Encounter - Tiffany Neri LPN - 01/11/2025 2:17 PM EDT Pt lm her xanax was refilled today and was only sent in for once daily she states it is supposed jean for twice daily--see recent messaging with patient re: xanax directions documented in this encounter Plan of Treatment Not on file documented as of this encounter Visit Diagnoses Diagnosis Anxiety Anxiety state, unspecified documented in this encounter Care Teams Business Manager College Or University Relationship Specialty Start Date End Date Kimberly Arauz MD 112 [place] [address] PCP - General Family Medicine 01/20/23 Gonzales Still LPC Product Manager Bow Maker 10/02/24 documented as of this encounter
--- OUTSIDE RECORDS SUMMARY | 2025-01-17 08:21 | XMS_ITS | Encounter Summary ---
Author Organization [facility] Address [address] [place] [address] Care Team Providers Care Implementation Coordinator Name Role Phone Kimberly Arauz MD Primary Care Provider [phone] Gonzales Still STONE CRUSHER OPERATOR Unavailable Unava ilable Encounter Details Date Type Department Care Team (Late st Contact Info) Description 11/20/2024 Abstract [facility] OB [address] [place] [phone] Timmy Smiley, DO [address] [place], [place] [address] Social History Tobacco Use Types Packs/Day Years [...] Not at all 11/23/2024 1:36 PM EDT [facility] Bee [facility] N Feeling down, depressed, or hopeless Not at all 11/23/2024 1:36 PM EDT Emani Bee [facility] N Patient Health Questionnaire -2 Score 0 11/23/2024 1:36 PM EDT Emani Bee [facility] N documented as of this encounter Plan of Treatment Not on file documented as of this encounter Visit Diagnoses Not on filedocumented in this encounter Care Teams Implementation Coordinator Relationship Specialty Start Date End Date Kimberly Arauz MD 112 [facility] 110 [place] [address] PCP - General Family Medicine 01/20/23 Gonzales Still LPC Automobile Designer Hand Brush Filler 10/02/24 documented as of this encounter
--- OUTSIDE RECORDS SUMMARY | 2025-01-17 08:21 | XMS_ITS | Clinical Summary ---
Author Organization [facility] Address [address] [place] [address] Care Team Providers Care Wastewater Project Manager Name Role Phone Kimberly Arauz MD Primary Care Provider [phone] Allergies Active Allergy Reactions Criticality Noted Date [...] patient's age to complete this topic [place] [address] Care Teams Wastewater Project Manager Relationship Specialty Start Date End Date Kimberly Arauz MD 112 [facility] 110 [place] [address] PCP - General Family Medicine 05/19/24
--- OUTSIDE RECORDS SUMMARY | 2025-01-17 08:21 | XMS_ITS | Encounter Summary ---
Author Organization [employer] Address [id number] [address] [place] [address] Care Team Providers Care Patient Financial Rep Name Role Phone Kimberly Arauz MD Primary Care Provider [phone] Encounter Details Date Type Department Care Team (Late st Contact Info) Description 12/15/2024 Telephone [facility] [address] [place] [address] Pinky Raoms, JULIO Social History Tobacco Use Types Packs/Day Years Used Date Smoking Tobacco: Every Day Cigarettes Smokeless Tobacco: Never Alcohol Use Standard Drinks/Week Comments Not Currently 0 (1 standard drink = 0.6 oz pur e alcohol) [facility] Utilities Answer Date Recorded In the past 12 months has [employer], gas, oil, or water [employer] threatened to shut off services in your [...] PM EDT Office Visit [facility] [place] [address] [place] [address] Carole Tyson, DO 2109 [facility] [address] [place] [address] documented as of this encounter Goals Goal [...] documented as of this encounter Care Teams Patient Financial Rep Relationship Specialty Start Date End Date Kimberly Arauz MD 112 [facility] 110 [place] [address] PCP - General Family Medicine 04/01/24 documented as of this encounter
--- OUTSIDE RECORDS SUMMARY | 2025-01-17 08:21 | XMS_ITS | Clinical Summary ---
Author Organization [facility] Address [address] [place] [address] Phone Care Team Providers Care Change Manager Name Role Phone Unavailable Primary Care Provider [...]
--- OUTSIDE RECORDS SUMMARY | 2025-01-17 08:21 | XMS_ITS | Encounter Summary ---
Author Organization [employer] tem Address [id number] [address] [place] [address] Care Team Providers Care Egg Breaker Name Role Phone Kimberly Arauz MD Primary Care Provider [phone] Reason for Visit * Reason Onset Date Comments Hospital Follow-up 12/06/2024 Encounter Details Date Type Department Care Team (Late st Contact Info) Description 12/06/2024 Telephone [facility] [address] [place] [address] [facility] Follow[facility]up Social History Tobacco Use Types Packs/Day Years Used Date Smoking Tobacco: Every Day Cigarettes Smokeless Tobacco: Never Alcohol Use Standard Drinks/Week Comments Not Currently 0 (1 standard drink = 0.6 oz pur e alcohol) [facility] Utilities Answer Date Recorded In the [...] MMM. He signed off patient care from [facility] Dx 1. Bradycardia seems to be increased [...] 02/26/2025 3:30 PM EDT Office Visit [facility] [place] [address] [place] [address] [place] [address] [place] [address] [place] [address] documented as of this encounter Goals Goal [...] documented as of this encounter Care Teams Egg Breaker Relationship Specialty Start Date End Date Kimberly Arauz MD [address] [facility] 110 [place] [address] PCP - General Family Medicine 04/01/24 documented as of this encounter
--- OUTSIDE RECORDS SUMMARY | 2025-01-17 08:21 | XMS_ITS | Encounter Summary ---
Author Organization [facility] Address [address] [place] [address] Care Team Providers Care Parts Delivery Driver Name Role Phone Kimberly Arauz MD Primary Care Provider [phone] Gonzales Still MUSEUM DOCENT Unavailable Unava ilable Encounter Details Date Type Department Care Team (Late st Contact Info) Description 10/18/2023 Abstract [facility] [address] [facility] 110 [place] [address] Kimberly Arauz MD 112 [facility] 110 [place], [place] [address] Social History Tobacco Use Types Packs/Day Years [...] on filedocumented in this encounter Care Teams Parts Delivery Driver Relationship Specialty Start Date End Date Kimberly Arauz MD [address] [address] PCP - General Family Medicine 01/20/23 Gonzales Still LPC Vacuum Cleaner Repairer Comb Fixer 10/02/24 documented as of this encounter
--- OUTSIDE RECORDS SUMMARY | 2025-01-17 08:21 | XMS_ITS | Encounter Summary ---
Author Organization [facility] Address [address] [place] [address] Care Team Providers Care Corporate Training Manager Name Role Phone Kimberly Arauz MD Primary Care Provider [phone] Gonzales Still POLISH MAKER Unavailable Unava ilable Encounter Details Date Type Department Care Team (Late st Contact Info) Description 01/16/2025 Bamboo flowsheet [facility] [address] [place] [phone] Timmy Smiley, DO [address] [place], [facility] Social History Tobacco Use Types Packs/Day Years [...] on filedocumented in this encounter Care Teams Corporate Training Manager Relationship Specialty Start Date End Date Kimberly Arauz MD 112 [facility] 110 [place] [address] PCP - General Family Medicine 01/20/23 Gonzlaes Still LPC [employer] Financials Consultant Brass Buffer 10/02/24 documented as of this encounter
--- OUTSIDE RECORDS SUMMARY | 2025-01-17 08:21 | XMS_ITS | Encounter Summary ---
Author Organization [facility] Address [address] [place] [address] Care Team Providers Care Bottle Machine Operator Name Role Phone Kimberly Blancas MD Primary Care Provider [phone] Gonzales Still ASSISTANT PRODUCT MANAGER Unavailable Unava ilable Encounter Details Date Type Department Care Team (Late st Contact Info) Description 01/27/2024 Clinisync Result Encounter [facility] External Department Unsolicited Kimberly Blancas MD [address] [facility] 110 [place] [address] Social History Tobacco Use Types Packs/Day Years [...] AM EDT Narrative 01/27/2024 11:12 [place] [address] Ultrasound Report Signed Patient: NAFISA ELLIOTT MR#: [id number] : 1995 Acct:[id number] Age/Sex: 28 / F ADM Date: 01/26/24 Loc: US Attending Dr: KIMBERLY BLANCAS Ordering Physician: KIMBERLY BLANCAS Date of Service: 01/26/24 Procedure(s): US soft tissue head and neck Accession Number(s): [id number] cc: KIMBERLY BLANCAS [place] [id number] Patient Name: NAFISA ELLIOTT MRN: [id number] date: 1995 Sex: F Assigned Patient Location: US Current Patient Location: Accession/Order Number: [id number] Exam Date: 01/26/2024 09:35 Report Date: 01/27/2024 [...] consider ultrasound-guided tissue sampling. Electronically authenticated by: GAOB DRAPER Date: 01/27/2024 11:10 Dictated By: Gabo Draper M.D. Signed By: 01/27/241111 DD/ 09 TD/TT: [place]: Procedure Note Radiology, Radiologist, MD - 01/27/[address] [address] Ultrasound Report Signed Patient: NAFISA ELLIOTT JMR#: [id number] : 1995Acct:[id number] Age/Sex: M Date: 01/26/24 Loc: US Attending Dr: KIMBERLY BLANCAS Ordering Physician: KIMBERLY BLANCAS Date of Service: 01/26/24 Procedure(s): US soft tissue head and neck Accession Number(s): [id number] cc: KIMBERLY BLANCAS [place] [address] Patient Name: NAFISA ELLIOTT MRN: [id number] date: 1995 Sex: F Assigned Patient Location: US Current Patient Location: Accession/Order Number: [id number] Exam Date: 01/26/2024 09:35 Report Date: 01/27/2024 [...] 11:10 Dictated By: Gabo Draper M.D. Signed By:01/27/241111 DD/ 09 TD/TT: [place]: us Kimberly Blancas MD [facility] Final Result documented in this encounter Visit Diagnoses Not on filedocumented in this encounter Care Teams Bottle Machine Operator Relationship Specialty Start Date End Date Kimberly Blancas MD 112 [place] [id number] PCP - General Family Medicine 01/20/23 Gonzales Still LPC Learning Design Specialist Paper Products Inspector 10/02/24 documented as of this encounter
--- OUTSIDE RECORDS SUMMARY | 2025-01-17 08:21 | XMS_ITS | Encounter Summary ---
Author Organization [facility] Address [address] [place] [address] Care Team Providers Care Client Operations Manager Name Role Phone Kimberly Arauz MD Primary Care Provider [phone] Gonzales Still POWER LINEWORKER Unavailable Unava ilable Encounter Details Date Type Department Care Team (Late st Contact Info) Description 08/24/2024 Orders Only [facility] [address] [place] [address] [place] [address] [place] [address] Social History Tobacco Use Types Packs/Day Years [...] AM EST) Swab Cervical swab / Unknown us Timmy Baljit DO LAB CYTOLOGY ORDERABLES Final Re sult EXTERNAL LAB documented in this encounter Visit Diagnoses Not on filedocumented in this encounter Care Teams Client Operations Manager Relationship Specialty Start Date End Date Kimberly Arauz MD [address] [place] [address] PCP - General Family Medicine 01/20/23 Gonzales Still LPC Digital Analytics Manager Propellant Charge Loader 10/02/24 documented as of this encounter
--- OUTSIDE RECORDS SUMMARY | 2025-01-17 08:21 | XMS_ITS | Encounter Summary ---
Author Organization [facility] Address [address] [place] [address] Care Team Providers Care Superintendent Name Role Phone Kimberly Arauz MD Primary Care Provider [phone] Gonzales Still LINING CEMENTER Unavailable Unava ilable Encounter Details Date Type Department Care Team (Late st Contact Info) Description 01/15/2025 Telephone [facility] [address] [place] [id number] Emani Bee LPN [address] [place], [place] [id number] Social History Tobacco Use Types Packs/Day Years [...] Telephone Encounter - Emani Bee LPN - 01/15/2025 11:26 AM EDT Called pt to let her know that the Alprazolam 0.5 mg was sent in for her and she states the pharmacy won't fill until Wednesday. She wasn't sure if there was anything you could do so that she could get a refill of it sooner but if she has to wait until Wednesday she can wait. documented in this encounter Plan of Treatment Not on file documented as of this encounter Visit Diagnoses Not on filedocumented in this encounter Care Teams Superintendent Relationship Specialty Start Date End Date Kimberly Arauz MD [address] [place] [address] PCP - General Family Medicine 01/20/23 Gonzales Still LPC Supervisor Spring Up Hooker Off 10/02/24 documented as of this encounter
--- OUTSIDE RECORDS SUMMARY | 2025-01-17 08:21 | XMS_ITS | Patient Health Record ---
Author Organization [facility] es Address [address] [place] [address] Care Team Providers Care Costume Rental Clerk Name Role Phone Bekah Helms Primary Care Provider [phone] Dr. Justino Solo Unavailable [phone] Allergies No Known Allergies Reason For Referral No Information Medications Medication SIG (Take, Route, Frequency, Duration) Notes Start Date End Date Status QUEtiapine Fumarate 50 MG 1-2 tabs Orally daily at bedtime tabs may be cut in half if needed 04/23/2022 Not-Taking cloNIDine HCl 0.1 MG 1 tab at bedtime; take 1 tab with lorazepam during day for anxiety inducing event; max is 2 tabs daily Orally Once a day for 30 days Active LORazepam 0.5 MG 1 tab 30 minutes prior to anxiety inducing event Orally twice daily for 3 days Take with Clonidine 0.1mg 11/29/2023 Active Divalproex Sodium ER 250 MG 1 tablet Orally Once a day for 30 day(s) Start in PM, may move to AM if preferred 10/28/2022 Not-Taking Yaurel Carbonate 300 MG 1 capsule Orally Once a day for 30 day(s) 06/24/2022 Not-Taking Ibuprofen 800 MG 1 tablet with food or milk as needed Orally Three times a day 05/03/2024 Active Abilify 5 MG 1 tablet Orally Once a day 06/08/2023 Active Lexapro 20 MG 1 tablet Orally Once a day 10/10/2020 Active Social History Tobacco Use: Social History Observation Description Date Details (start date - stop date) Former Smoker NA - NA Tobacco Screen: Question Answer Notes Are you a: former smoker Alcohol Screening: Question Answer Notes Did you have a drink contain ing alcohol in the past year? Yes How often did you have a dri nk containing alcohol in the past year? Monthly or less (1 point) How many drinks did you have on a typical day when you were drinking in the past year? 1 or 2 (0 points) How often did you have six o r more drinks on one occasion in the past year? Never (0 points) Points 1 Interpretation Negative Section Notes: uses vape pen uses vape pen uses vape pen uses vape pen uses vape pen uses vape pen uses vape pen uses vape pen uses vape pen uses vape pen uses vape pen uses vape pen uses vape pen uses vape pen uses vape pen uses vape pen Problems Problem Type SNOMED Code ICD Code Onset Dates Problem Status W/U Status Risk Notes Problem Generalized anxiety disorder (04898952) Anxiety, generalized (F41.1) Active confirmed Problem Bipolar affective disorder, currently manic, moderate (929592631) Bipolar 1 disorder with moderate priti (F31.12) Active confirmed Encounters Encounter Location Date Provider Diagnosis [facility] [address] [place] [address] 01/19/2024 [facility] [address] [place] [address] 05/03/2024 Justino Solo Cracked tooth K03.81 Assessments Encounter Date Diagnosis (ICD Code) Assessment Notes Treatment Notes Treatment Clinical Notes Section Notes 05/03/2024 Cracked tooth (ICD-10 - K03.81) Plan Of Treatment No Information Insurance Providers Payer Name Payer Address Payer Phone Subscriber Number Group Number Insured Name Patient Relationship to Insured Coverage Start Date Coverage End Date ANTHEM Primary [address] [place] [address] [id number] NAFISA ELLIOTT Self - patient is the insured 1 [facility] [employer] [place] [employer] [address] [place] [address] [id number] NAFISA ELLIOTT Self - patient is the insured [address] [facility] [address] [place] [address] [phone] [id number] NAFISA ELLIOTT Self - patient is the insured 4 [employer] [employer] 22 [address] CLAIMS DEPT [facility] [place] [address] [id number] NAFISA ELLIOTT Self - patient is the insured 0 3 z MEDICAID [employer] after [employer] [address] [place] [address] [phone] [id number] NAFISA ELLIOTT Self - patient is the insured 0 3 zDENTAL [employer] 22 [address] [address] [place] [phone] [id number] NAFISA ELLIOTT Self - patient is the insured 2 3 zDental MEDICAID [employer] after [facility] 22 [address] [place] [address] [phone] [id number] NAFISA ELLIOTT Self - patient is the insured 2 3 [facility] [employer] [employer] [address] [address] [place] [phone] [id number] NAFISA ELLIOTT Self - patient is the insured 3 Dental [employer] [address] [place] [address] [phone] [id number] NAFISA ELLIOTT Self - patient is the insured 3 Medical (General) History Medical History History ICD Code bipolar anxiety Surgical History Surgery Date(Month/Year) cholecystectomy lymphectomy episiotomy tubal ligation tonsillectomy 10/2020 fallopian tubes removed 09/2021
--- OUTSIDE RECORDS SUMMARY | 2025-01-17 08:21 | XMS_ITS | Encounter Summary ---
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 Unava ilable Reason for Visit * Reason Onset Date Comments Med Refill 01/11/2025 Encounter Details Date Type Department Care Team (Late st Contact Info) Description 01/11/2025 Refill [facility] [address] [place] [id number] Ailyn Quinn MA Anxiety Social History Tobacco Use Types Packs/Day [...] unspecified documented in this encounter Care Teams Dining Host Relationship Specialty Start Date End Date Kimberly Arauz MD [address] [facility] [address] [place] [address] PCP - General Family Medicine 01/20/23 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
--- OUTSIDE RECORDS SUMMARY | 2025-01-17 08:21 | XMS_ITS | Encounter Summary ---
Author Organization [facility] Address [id number] [address] [place] [address] Care Team Providers Care Grass Cutter Name Role Phone Kimberly Arauz MD Primary Care Provider Encounter Details Date Type Department Care Team (Late st Contact Info) Description 12/12/2024 Telephone [facility] [address] [place] [address] Pinky Ramos, JULIO Social History Tobacco Use Types Packs/Day Years Used Date Smoking Tobacco: Every Day Cigarettes Smokeless Tobacco: Never Alcohol Use Standard Drinks/Week Comments Not Currently 0 (1 standard drink = 0.6 oz pur e alcohol) [facility] Utilities Answer Date Recorded In the past 12 months has [employer], gas, oil, or water [employer] threatened to shut off services in your [...] PM EDT Office Visit [facility] [address] [place] [address] Carole Tyson, DO [address] [facility] [address] [place] [address] documented as of this encounter Goals Goal [...] documented as of this encounter Care Teams Grass Cutter Relationship Specialty Start Date End Date Kimberly Arauz MD [address] [facility] [address] [place] [address] PCP - General Family Medicine 04/01/24 documented as of this encounter
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
--- OUTSIDE RECORDS SUMMARY | 2025-01-17 08:22 | XMS_ITS | Encounter Summary ---
Author Organization [facility] Address [address] [place] [address] Care Team Providers Care Channel Development Manager Name Role Phone Kimberly Arauz MD Primary Care Provider [phone] Gonzales Still TONG HOOKER Unavailable Unava ilable Encounter Details Date Type Department Care Team (Late st Contact Info) Description 01/21/2023 Abstract [facility] [address] [facility] [address] [place] [address] Minoo Barbour PA [address] [facility] [address] [place] [address] Social History Tobacco Use Types Packs/Day Years [...] on filedocumented in this encounter Care Teams Channel Development Manager Relationship Specialty Start Date End Date Kimberly Arauz MD [address] [address] PCP - General Family Medicine 01/20/23 Gonzales Still LPC Business Services Manager Sap Abap Developer 10/02/24 documented as of this encounter
--- OUTSIDE RECORDS SUMMARY | 2025-01-17 08:22 | XMS_ITS | Encounter Summary ---
Author Organization [facility] Address [address] [place] [address] Care Team Providers Care Patient Services Assistant Name Role Phone Kimberly Arauz MD Primary Care Provider [phone] oGnzales Still PMO LEAD Unavailable Unava ilable Encounter Details Date Type Department Care Team (Late st Contact Info) Description 01/25/2023 Orders Only [facility] [address] [facility] [address] [place] [address] Minoo Barbour PA [address] [facility] [address] [place] [address] Social History Tobacco Use Types Packs/Day Years [...] * [facility] (01/23/2023 11:05 AM EDT) us [facility] CHG PERFORMABLES Final Res ult documented in this encounter Visit Diagnoses Not on filedocumented in this encounter Care Teams Patient Services Assistant Relationship Specialty Start Date End Date Kimberly Arauz MD 112 [facility] [address] [place] [address] PCP - General Family Medicine 01/20/23 Gonzales Still LPC Steam Finisher Manager Sales Training 10/02/24 documented as of this encounter
--- OUTSIDE RECORDS SUMMARY | 2025-01-17 08:22 | XMS_ITS | Encounter Summary ---
Author Organization [facility] Address [address] [place] [address] Care Team Providers Care Coating Machine Helper Name Role Phone Kimberly Arauz MD Primary Care Provider [phone] Gonzales Still [employer] Unavailable Unava ilable Reason for Visit * Reason Onset Date Comments Results 01/04/2025 Encounter Details Date Type Department Care Team (Late st Contact Info) Description 01/04/2025 Results Follow-Up [facility] [address] [facility] 110 [place] [id number] Kimberly Arauz MD 112 [facility] 110 [place], [place] [address] Social History Tobacco Use Types Packs/Day Years [...] reduce Calcium intake ----- Message ----- From: [employer], [employer] YES! Happen Lab Results In Sent: 12/29/2024 7:17 AM EDT To: Kimberly Arauz MD documented in this encounter Plan of Treatment Not on file documented as of this encounter Visit Diagnoses Not on filedocumented in this encounter Care Teams Coating Machine Helper Relationship Specialty Start Date End Date Kimberly Arauz MD [address] [place] [address] PCP - General Family Medicine 01/20/23 Gonzales Still LPC Drill Operator Municipal Engineer 10/02/24 documented as of this encounter
--- OUTSIDE RECORDS SUMMARY | 2025-01-17 08:22 | XMS_ITS | Encounter Summary ---
Author Organization [facility] Address [address] [place] [address] Care Team Providers Care Dip Tube Assembler Machine Name Role Phone Kimberly Arauz MD Primary Care Provider [phone] Gonzales Still ANESTHESIOLOGY TECHNOLOGIST Unavailable Unava ilable Encounter Details Date Type Department Care Team (Late st Contact Info) Description 01/02/2025 Telephone [facility] [address] [facility] 110 [place] [address] Kimberly Arauz MD 112 [facility] 110 [place], [place] [id number] Social History Tobacco Use Types Packs/Day Years [...] unspecified documented in this encounter Care Teams Dip Tube Assembler Machine Relationship Specialty Start Date End Date Kimberly Arauz MD 112 [facility] 110 [place] [address] PCP - General Family Medicine 01/20/23 Gonzales Still LPC Registered Mail Clerk Deputy Editor In Chief 10/02/24 documented as of this encounter
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
--- OUTSIDE RECORDS SUMMARY | 2025-01-17 08:22 | XMS_ITS | Encounter Summary ---
Author Organization [facility] Address [address] [place] [address] Care Team Providers Care Sewer Inspector Name Role Phone Kimberly Arauz MD Primary Care Provider [phone] Gonzales Still BOX OFFICE ATTENDANT Unavailable Unava ilable Encounter Details Date Type Department Care Team (Late st Contact Info) Description 01/05/2025 Telephone [facility] [address] [facility] [address] [place] [address] Kimberly Arauz MD 112 [facility] 110 [place], [place] [address] Social History Tobacco Use Types Packs/Day Years [...] on filedocumented in this encounter Care Teams Sewer Inspector Relationship Specialty Start Date End Date Kimberly Arauz MD [address] [address] PCP - General Family Medicine 01/20/23 Gonzales Still LPC Orchard Sprayer Dispatch Clerk 10/02/24 documented as of this encounter
--- OUTSIDE RECORDS SUMMARY | 2025-01-17 08:22 | XMS_ITS | Encounter Summary ---
Author Organization [facility] Address [address] [place] [address] Care Team Providers Care Analytical Clerk Name Role Phone Kimberly Arauz MD Primary Care Provider [phone] Gonzales Still TRAILHEAD MAINTENANCE WORKER Unavailable Unava ilable Encounter Details Date Type Department Care Team (Late st Contact Info) Description 06/02/2023 Orders Only [facility] [address] [facility] [address] [place] [address] A, Unknown Practice [address] [place], [place] [address] Social History Tobacco Use Types Packs/Day Years [...] on filedocumented in this encounter Care Teams Analytical Clerk Relationship Specialty Start Date End Date Kimberly Arauz MD [address] [place] [address] PCP - General Family Medicine 01/20/23 Gonzales Still LPC Doweler Blind Installer 10/02/24 documented as of this encounter
--- OUTSIDE RECORDS SUMMARY | 2025-01-17 08:22 | XMS_ITS | Encounter Summary ---
Author Organization [facility] Address [address] [place] [address] Care Team Providers Care Continuous Dryout Operator Helper Name Role Phone Kimberly Arauz MD Primary Care Provider [phone] Gonzales Still CHILDRENS CLUB ATTENDANT Unavailable Unava ilable Encounter Details Date Type Department Care Team (Late st Contact Info) Description 01/05/2025 Telephone [facility] 112 [facility] 110 [place] [address] Kimberly Arauz MD 112 [facility] 110 [place], [place] [phone] Social History Tobacco Use Types Packs/Day Years [...] Telephone Encounter - HOA CONTRERAS - 01/05/2025 9:34 AM EDT Patient called and things she mat have a UTI, I advised her to call her OB. documented in this encounter Plan of Treatment Not on file documented as of this encounter Visit Diagnoses Not on filedocumented in this encounter Care Teams Continuous Dryout Operator Helper Relationship Specialty Start Date End Date Kimberly Arauz MD 112 [place] [address] PCP - General Family Medicine 01/20/23 Gonzales Still LPC Loan Reviewer Transportation Museum Helper 10/02/24 documented as of this encounter
--- OUTSIDE RECORDS SUMMARY | 2025-01-17 08:22 | XMS_ITS | Encounter Summary ---
Author Organization [facility] Address [address] [place] [address] Care Team Providers Care Raw Silk Grader Name Role Phone Kimberly Blancas MD Primary Care Provider [phone] Gonzales Still CURAM DEVELOPER Unavailable Unava ilable Encounter Details Date Type [...] PM EDT Narrative 06/01/2023 1:12 [place] [address] Ultrasound Report Signed Patient: Anabel Fatima MR#: [id number] : 1995 Acct:[id number] Age/Sex: 27 / F ADM Date: 06/01/23 Loc: US Attending Dr: Timmy Smiley D.O. Ordering Physician: Tmimy Smiley D.O. Date of Service: 06/01/23 Procedure(s): US pelvis w/ transvaginal Accession Number(s): [id number] cc: KIMBERLY BLANCAS ; Timmy Smiley D.O. [place] [address] Patient Name: ANABEL FATIMA MRN: [id number] date: 1995 Sex: F Assigned Patient Location: US Current Patient Location: US Accession/Order Number: [id number] Exam Date: 06/01/2023 10:58 Report Date: 06/01/2023 [...] 13:12 Dictated By: Alvaro Willett Signed By: 06/01/231314 DD/ 11 TD/TT: Linotype Machinist Apprentice: Procedure Note Radiology, Radiologist, - 06/01/2023 [place] [address] Ultrasound Report Signed Patient: Anabel Fatima JMR#: [id number] : 1995Acct:[id number] Age/Sex: 27 / FADM Date: 06/01/23 Loc: US Attending Dr: Timmy Smiley D.O. Ordering Physician: Timmy Smiley D.O. Date of Service: 06/01/23 Procedure(s): US pelvis w/ transvaginal Accession Number(s): [id number] cc: KIMBERLY BLANCAS ; Timmy Smiley D.O. The [place] [id number] Patient Name: ANABEL FATIMA MRN: [facility]:[id number] date: 1995 Sex: F Assigned Patient Location: US Current Patient Location: US Accession/Order Number: [id number] Exam Date: 06/01/2023 10:58 Report Date: 06/01/2023 [...] 06/01/2023 13:12 Dictated By: Alvaro Willett Signed By:06/01/231314 DD/ 11 TD/TT: Linotype Machinist Apprentice: us Generic External Data Provider [facility] Final Result documented in this encounter Visit Diagnoses Not on filedocumented in this encounter Care Teams Raw Silk Grader Relationship Specialty Start Date End Date Kimberly Blancas MD [address] [address] PCP - General Family Medicine 01/20/23 Gonzales Still LPC Absorber Operator Hand Packer/Packager 10/02/24 documented as of this encounter
--- OUTSIDE RECORDS SUMMARY | 2025-01-17 08:22 | XMS_ITS | Encounter Summary ---
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 Unavailable Unava ilable Encounter Details Date Type Department Care Team (Late st Contact Info) Description 01/21/2023 Abstract [facility] [address] [facility] 110 [place] [address] Kimberly Arauz MD 112 [facility] 110 [place], [place] [phone] Social History Tobacco Use Types Packs/Day Years [...] on filedocumented in this encounter Care Teams Capper Machine Operator Relationship Specialty Start Date End Date Kimberly Arauz MD [address] [address] PCP - General Family Medicine 01/20/23 Gonzales Still LPC Cuff Turner Machine Operator Channel Machine Operator 10/02/24 documented as of this encounter
[2025-01-17 09:31] LABS: Estimated Average Glucose 85 mg/dL; Glycohemoglobin A1C 4.6 % (4.5-6.2)
[2025-01-17 09:37] LABS: Glucose 89 mg/dL (74-106); Thyroid Stimulating Hormone 1.589 uIU/mL (0.358-3.740)
[2025-01-17 11:20] LABS: Free T4 1.39 ng/dL (0.76-1.46)
[2025-01-18 04:07] LABS: C-Peptide, Serum 2.5 ng/mL (1.1-4.4); Insulin 6.9 uIU/mL (2.6-24.9); Progesterone 0.1 ng/mL (.)
[2025-01-18 15:08] LABS: Thyroglobulin Antibody <1.0 IU/mL (0.0-0.9); Thyroid Peroxidase (TPO) Ab <9 IU/mL (0-34)
[2025-01-19 14:09] LABS: Calcitriol(1,25 di-OH Vit D) 37.9 pg/mL (24.8-81.5)
[2025-01-20 21:09] LABS: Free Testosterone(Direct) 0.3 pg/mL (0.0-4.2); Testosterone 22 ng/dL (13-71)
[2025-01-22 22:07] LABS: Reverse T3, Serum 16.4 ng/dL (9.2-24.1)
[2025-01-23 03:07] LABS: Serotonin, Serum 162 ng/mL (31-207)
== END 2025-01-17 08:17 | disposition home or self-care (01) ==
PROVIDERS: PCP Family Medicine; Visit Provider Obstetrics & Gynecology
DX: E34.9 Endocrine disorder, unspecified (principal)
CPT/HCPCS: 36415; 82530; 82627; 82652; 82670; 82679; 82728; 82947; 83036; 83525; 84144; 84260; 84270; 84402; 84403; 84432; 84436; 84439; 84443; 84481; 84482; 84681; 86376; 86800

== ENCOUNTER 2025-01-23 16:27 | Outpatient (OUT) | payer BC, OTHER, SELFPAY ==
--- OUTSIDE RECORDS SUMMARY | 2025-01-23 16:40 | XMS_ITS | CCD ---
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 episiotomy; Translations: [Other specified postprocedural states] 11-01-2024 Episodic Skin and subcutaneous tissue infections (2 sources) Cellulitis of face; Translations: [Cellulitis of face] 11-23-2024 Episodic Substance-related disorders (20 sources) Nicotine dependence, cigarettes, uncomplicated; Translations: [Nicotine dependence, other tobacco product, uncomplicated] Onset: 2 01-19-2023 Chronic Thyroid disorders (20 sources) Hypothyroidism, unspecified; Translations: [Hypothyroidism] Onset: 2 01-19-2023 Chronic Unclassified (1 source) CONTACT W/AND (SUSP) EXPOS COVID-19; Translations: [CONTACT W/AND (SUSP) EXPOS COVID-19] Onset: Viral infection (20 sources) Herpes simplex of female genitalia; Translations: [Herpesviral infection of other urogenital tract] Onset: 01-19-2023 Chronic Past or Other Problems Problem Classification Problem Date Documented Da te Episodic/Chronic Abdominal pain (20 sources) Abdominal pain; Translations: [Unspecified abdominal pain] Onset: 07-27-2022 Episodic Administrative/social admission (20 sources) Follow-up status; Translations: [Other specified counseling] Onset: 09-13-2024 09-13-2024 Episodic Allergic reactions (20 sources) Dermatitis, unspecified; Translations: [Allergic reaction] Onset: 10-12-2022 10-09-2024 Episodic Gastritis and duodenitis (20 sources) Gastritis; Translations: [Gastritis, unspecified, without bleeding] Onset: 01-18-2024 01-18-2024 Episodic Immunizations and screening for infectious disease (6 sources) Encounter for screening for human papillomavirus (HPV); Translations: [Encounter for screening for infections with a predominantly sexual mode of transmission] Onset: 02-05-2022 Episodic Inflammatory diseases of female pelvic organs (1 source) Inflammatory disease of cervix uteri; Translations: [INFLAMMATORY DISEASE CERVIX UTERI] Onset: 08-12-2022 Episodic Intestinal infection (1 source) Other viral enteritis; Translations: [Other viral enteritis A08.39] Onset: 05-06-2021 Resolved: 05-06-2021 Episodic Nausea and vomiting (20 sources) Nausea; Translations: [Nausea] Onset: 05-06-2021 Resolved: 05-06-2021 Episodic Other and unspecified benign neoplasm (20 sources) Benign neoplasm of occipital lymph nodes; Translations: [Benign neoplasm of lymph nodes] Onset: 01-18-2024 01-18-2024 Episodic Other complications of (6 sources) Finding of heart rate; Translations: [Maternal care for abnormalities of the heart rate or rhythm, unspecified trimester, not applicable or unspecified] Onset: 12-28-2024 Resolved: 12-29-2024 12-29-2024 Episodic Other connective tissue disease (20 sources) Fibromyalgia; Translations: [Fibromyalgia] Onset: 01-19-2023 01-19-2023 Episodic Other female genital disorders (5 sources) Other specified noninflammatory disorders of vagina; Translations: [OTH SPEC NONINFLAMMATORY D/O VAGINA] Onset: 02-02-2022 Episodic Other gastrointestinal disorders (20 sources) Diarrhea; Translations: [Diarrhea, unspecified] Onset: 01-18-2024 01-18-2024 Episodic Other gastrointestinal disorders (5 sources) Diarrhea, unspecified; Translations: [DIARRHEA UNSPECIFIED] Onset: 01-01-2022 Resolved: 01-01-2022 Episodic Other gastrointestinal disorders (5 sources) Constipation, unspecified; Translations: [CONSTIPATION UNSPECIFIED] Onset: 08-03-2022 Episodic Other injuries and conditions due to external causes (20 sources) History of clinical finding in subject; Translations: [History of non-suicidal self-harm] Onset: 10-10-2024 10-10-2024 Episodic Other nervous system disorders (1 source) Other acute postprocedural pain; Translations: [OTHER ACUTE POSTPROCEDURAL PAIN] Onset: 08-05-2022 Episodic Other nutritional; endocrine; and metabolic disorders (1 source) Anorexia; Translations: [Loss of appetite R63.0] Onset: 05-06-2021 Resolved: 05-06-2021 Episodic Other nutritional; endocrine; and metabolic disorders (20 sources) Weight loss; Translations: [Abnormal weight loss] Onset: 01-18-2024 01-18-2024 Episodic Other nutritional; endocrine; and metabolic disorders (20 sources) Weight decreased; Translations: [Abnormal weight loss] Onset: 01-18-2024 01-18-2024 Episodic Other upper respiratory disease (20 sources) Deviated nasal septum; Translations: [Deviated nasal septum] Onset: 01-19-2023 01-19-2023 Episodic Other upper respiratory disease (20 sources) Hypertrophy of nasal turbinates; Translations: [Hypertrophy of nasal turbinates] Onset: 01-19-2023 01-19-2023 Episodic Other upper respiratory disease (20 sources) Nasal obstruction; Translations: [Other specified disorders of nose and nasal sinuses] Onset: 01-19-2023 01-19-2023 Episodic Residual codes; unclassified (1 source) Acquired absence of both cervix and uterus; Translations: [ACQUIRED ABSENCE BOTH CERVIX AND UTERUS] Onset: 08-05-2022 Episodic Residual codes; unclassified (1 source) Acquired absence of other specified parts of digestive tract; Translations: [ACQ ABSENCE OTH PART DIGESTV TRACT] Onset: 08-12-2022 Episodic Residual codes; unclassified (20 sources) FH: Crohn's disease; Translations: [Family history of other diseases of the digestive system] Onset: 01-18-2024 01-18-2024 Episodic Spondylosis; intervertebral disc disorders; other back problems (20 sources) Cervicalgia; Translations: [Chronic neck pain] Onset: 03-23-2022 01-19-2023 Episodic Sprains and strains (20 sources) Unspecified sprain of right shoulder joint, initial encounter; Translations: [Sprains and strains of unspecified site of shoulder and upper arm] Onset: 01-18-2024 01-18-2024 Episodic Unclassified (2 sources) Bipolar disorder, most recent episode manic 10-09-2024 Unclassified (1 source) Traumatic injury of right kidney 12-14-2024 Urinary tract infections (20 sources) Urinary tract infectious disease; Translations: [Urinary tract infection, site not specified] Onset: 01-19-2023 01-19-2023 Episodic Viral infection (1 source) COVID-19; Translations: [COVID-19 U07.1] Onset: 05-06-2021 Resolved: 05-06-2021 Results Test Name Value Interpretation Reference Range Facility [facility] HEMOGLOBIN A1Con 025 Glucose [Mass/Vol] 85 mg/dL [facility] HbA1c (Bld) [Mass fraction] 4.6 % 4.5 - 6.2 % [facility] Comment on above: ADA RECOMMENDED LIMI T 4.0 - 6.0 ADA THERAPEUTIC TARGET < 7.0 ACTION SUGGESTED > 7.0 [facility] (H/H, RBC, INDICES, WBC, PLT)on 12-29-2024 Erythrocyte distribution width (RBC) [Ratio] 13.6 % Normal 11.0-15.0 [facility] Comment on above: Performed By: #### 1 662, 60843 #### [facility] [address], [address] [place] [address] Diet Technician Registered: Manuel Azar MD Hematocrit (Bld) [Volume fraction] 47.6 % High 35.0-45.0 [facility] Comment on above: Performed By: #### 1 759, 96588 #### [facility] [place] [address] Diet Technician Registered: Manuel Azar MD Hemoglobin (Bld) [Mass/Vol] 15.2 g/dL Normal 11.7-15.5 [facility] Comment on above: Performed By: #### 1 759, 33803 #### [facility] of [place] [address] Diet Technician Registered: Manuel Azar MD MCH (RBC) [Entitic mass] 29.4 pg Normal 27.0-33.0 [facility] Comment on above: Performed By: #### 1 759, 24536 #### [facility] [place] [address] Diet Technician Registered: Manuel Azar MD MCHC (RBC) [Mass/Vol] 31.9 g/dL Low 32.0-36.0 [facility] Comment on above: Result Comment: For adults, a slight decrease in the calculated MCHC value (in the range of 30 to 32 g/dL) is most likely not clinically significant; however, it should be interpreted with caution in correlation with other red cell parameters and the patient's clinical condition. Performed By: #### 1 759, 76479 #### [facility] [place] [address] Diet Technician Registered: Manuel Azar MD MCV (RBC) [Entitic vol] 92.1 fL Normal 80.0-100.0 [facility] Comment on above: Performed By: #### 1 759, 75213 #### [facility] [place] [address] Diet Technician Registered: Manuel Azar MD Platelet mean volume (Bld) [Entitic vol] 11.5 fL Normal 7.5-12.5 [facility] Comment on above: Performed By: #### 1 759, 28814 #### [facility] [address] [place] [address] Diet Technician Registered: Manuel Azar MD Platelets (Bld) [#/Vol] 536 10*3/uL High 140-400 [facility] Comment on above: Performed By: #### 1 759, 99652 #### [facility] of [address], [address] [place] [address] Diet Technician Registered: Manuel Azar MD RBC (Bld) [#/Vol] 5.17 10*6/uL High 3.80-5.10 [facility] Comment on above: Performed By: #### 1 759, 08922 #### [facility] of [address], [address] [place] [address] Diet Technician Registered: Manuel Azar MD WBC (Bld) [#/Vol] 8.2 10*3/uL Normal 3.8-10.8 [facility] Comment on above: Performed By: #### 1 759, 10560 #### [facility] of [address], [address] [place] [address] Diet Technician Registered: Manuel Azar MD [facility] METABOLIC PANE [facility] 12-29-2024 Albumin [Mass/Vol] 5.0 g/dL Normal 3.6-5.1 [facility] Comment on above: Performed By: #### 1 759, 12129 #### [facility] of [address], [address] [place] [address] Diet Technician Registered: Manuel Azar MD Albumin/Globulin [Mass ratio] 1.4 {ratio} Normal 1.0-2.5 [facility] Comment on above: Performed By: #### 1 759, 78629 #### [facility] of [address], [address] [place] [address] Diet Technician Registered: Manuel Azar MD ALP [Catalytic activity/Vol] 365 U/L High 31-125 [facility] Comment on above: Performed By: #### 1 759, 07429 #### [facility] of [address], [address] [place] [address] Diet Technician Registered: Manuel Azar MD ALT [Catalytic activity/Vol] 12 U/L Normal 6-29 [facility] Comment on above: Performed By: #### 1 849, 47515 #### [facility] [place] [address] Diet Technician Registered: Manuel Azar MD AST [Catalytic activity/Vol] 14 U/L Normal 10-30 [facility] Comment on above: Performed By: #### 1 759, 79410 #### [facility] of [place] [address] Diet Technician Registered: Manuel Azar MD Bilirubin [Mass/Vol] 1.7 mg/dL High 0.2-1.2 [facility] Comment on above: Performed By: #### 1 759, 00558 #### [facility] [place] [address] Diet Technician Registered: Manuel Azar MD BUN/CREATININE RATIO SEE NOTE: Normal 6-22 [facility] Comment on above: Result Comment: Not Reported: BUN and Creatinine are within reference range. Performed By: #### 1 479, 55636 #### [facility] [place] [address] Diet Technician Registered: Manuel Azar MD Calcium [Mass/Vol] 10.7 mg/dL High 8.6-10.2 [facility] Comment on above: Performed By: #### 1 819, 39967 #### [facility] [place] [address] Diet Technician Registered: Manuel Azar MD Chloride [Moles/Vol] 102 mmol/L Normal 98-110 [facility] Comment on above: Performed By: #### 1 659, 79360 #### [facility] [place] [address] Diet Technician Registered: Manuel Azar MD CO2 [Moles/Vol] 26 mmol/L Normal 20-32 [facility] Comment on above: Performed By: #### 1 469, 77685 #### [facility] [place] [address] Diet Technician Registered: Manuel Azar MD Creatinine [Mass/Vol] 0.64 mg/dL Normal 0.50-0.96 [facility] Comment on above: Performed By: #### 1 759, 32353 #### [facility] of [place] [address] Diet Technician Registered: Manuel Azar MD GFR/1.73 sq M.predicted among non-blacks MDRD (S/P/Bld) [Vol rate/Area] 124 mL/min/{1.73_m2} Normal > OR = 60 [facility] Comment on above: Performed By: #### 1 759, 26522 #### [facility] [place] [address] Diet Technician Registered: Manuel Azar MD Globulin (S) [Mass/Vol] 3.6 g/dL Normal 1.9-3.7 [facility] Comment on above: Performed By: #### 1 759, 67097 #### [facility] [place] [address] Diet Technician Registered: Manuel Azar MD Glucose [Mass/Vol] 77 mg/dL Normal 65-99 [facility] Comment on above: Result Comment: Fasting reference interval Performed By: #### 1 759, 55741 #### [facility] [place] [address] Diet Technician Registered: Manuel Azar MD Potassium [Moles/Vol] 3.8 mmol/L Normal 3.5-5.3 [facility] Comment on above: Performed By: #### 1 759, 30308 #### [facility] [place] [address] Diet Technician Registered: Manuel Azar MD Protein [Mass/Vol] 8.6 g/dL High 6.1-8.1 [facility] Comment on above: Performed By: #### 1 759, 74122 #### [facility] of [address] [place] [address] Diet Technician Registered: Manuel Azar MD Sodium [Moles/Vol] 140 mmol/L Normal 135-146 [facility] Comment on above: Performed By: #### 1 759, 81014 #### [facility] [address] [place], [place] [address] Rd, [address] Diet Technician Registered: Manuel Azar MD Urea nitrogen [Mass/Vol] 8 mg/dL Normal 7-25 [facility] Comment on above: Performed By: #### 1 759, 88232 #### [facility] [address], [address] [place], [place] [address] Diet Technician Registered: Manuel Azar MD XR CHEST 2Von 11-29-2024 [place] [address] XRay Report Signed Patient: MISTY ELLIOTT MR#: [id number] : 1995 Acct:[id number] Age/Sex: 28 / F ADM Date: 11/29/24 Loc: [facility] Attending Dr: Timmy Smiley D.O. Ordering Physician: Timmy Smiley D.O. Date of Service: 11/29/24 Procedure(s): XR chest 2V Accession Number(s): [id number] cc: TEE BLANCAS ; Timmy Smiley D.O. [place] [id number] Patient Name: MISTY ELLIOTT MRN: [id number] date: 1995 Sex: F [facility]igned [facility] Current Patient Location: [facility] Accession/Order Number: [id number] Exam Date: 11/29/2024 09:57 Report Date: 11/29/2024 09:58 At the request of: TIMMY SMILEY DO Procedure: XR chest 2V Plain [...] Darshan Hoang M.D.11/29/2024 9:58 AM Dictation Location: [place] [address] Electronically authenticated by: [id number] Y Date: 11/29/2024 09:58 Dictated By: Darshan Hoang D.O. Signed By: 11/29/24 1000 DD/ 0958 TD/TT: County Coroner: [facility] Radiology, Radiologist, MD - 11/29/2024 [place] [address] XRay Report Signed Patient: MISTY ELLIOTT MR#: [id number] : 1995 Acct:[id number] Age/Sex: 28 / F ADM Date: 11/29/24 Loc: [facility] Attending Dr: Timmy Smiley D.O. Ordering Physician: Timmy Smiley D.O. Date of Service: 11/29/24 Procedure(s): XR chest 2V Accession Number(s): [id number] cc: TEE BLANCAS ; Timmy Smiley D.O. The [place] [id number] Patient Name: MISTY ELLIOTT MRN: [facility]:[id number] date: 1995 Sex: F Assigned Patient Location: [facility] Current Patient Location: [facility] Accession/Order Number: [id number] Exam Date: 11/29/2024 09:57 Report Date: 11/29/2024 09:58 At the request of: TIMMY SMILEY DO Procedure: XR chest 2V Plain [...] Darshan Hoang M.D.11/29/2024 9:58 AM Dictation Location: [place] [address] Electronically authenticated by: [id number] Y Date: 11/29/2024 09:58 Dictated By: Darshan Hoang D.O. Signed By: 11/29/24 1000 DD/ TD/TT: County Coroner: [facility] [employer] Radiology Study observation (narrative) [facility] [employer] XR CHEST 2VOrdered By: Radio logist Radiology on 11-29-2024 [email or web address] Work Phone: CBC (H/H, RBC, INDICES, WBC, PLT)on 11-01-2024 Erythrocyte distribution width (RBC) [Ratio] 13.9 % Normal 11.0-15.0 [facility] Comment on above: Performed By: #### 3 61, 927, 1759, 466, 47416, 22965 #### [facility] [place] [address] Diet Technician Registered: Manuel Azar MD Hematocrit (Bld) [Volume fraction] 45.6 % High 35.0-45.0 [facility] Comment on above: Performed By: #### 3 61, 927, 175, 466, 62648, 83076 #### [facility] [place] [address] Diet Technician Registered: Manuel Azar MD Hemoglobin (Bld) [Mass/Vol] 15.0 g/dL Normal 11.7-15.5 [facility] Comment on above: Performed By: #### 3 61, 927, 1759, 466, 66401, 60902 #### [facility] [place] [address] Diet Technician Registered: Manuel Azar MD MCH (RBC) [Entitic mass] 30.5 pg Normal 27.0-33.0 [facility] Comment on above: Performed By: #### 3 61, 927, 1759, 466, 60541, 82630 #### [facility] [place] [address] Diet Technician Registered: Manuel Azar MD MCHC (RBC) [Mass/Vol] 32.9 g/dL Normal 32.0-36.0 [facility] Comment on above: Result Comment: For adults, a slight decrease in the calculated MCHC value (in the range of 30 to 32 g/dL) is most likely not clinically significant; however, it should be interpreted with caution in correlation with other red cell parameters and the patient's clinical condition. Performed By: #### 3 6127, 927, 1759, 466, 64502, 31978 #### [facility] [place] [address] Diet Technician Registered: Manuel Azar MD MCV (RBC) [Entitic vol] 92.9 fL Normal 80.0-100.0 [facility] Comment on above: Performed By: #### 3 61, 927, 1759, 466, 69299, 42832 #### [facility] [place] [address] Diet Technician Registered: Manuel Azar MD Platelet mean volume (Bld) [Entitic vol] 12.5 fL Normal 7.5-12.5 [facility] Comment on above: Performed By: #### 3 61, 927, 1759, 466, 00019, 72065 #### [facility] [place] [address] Diet Technician Registered: Manuel Azar MD Platelets (Bld) [#/Vol] 336 10*3/uL Normal 140-400 [facility] Comment on above: Performed By: #### 3 61, 927, 1759, 466, 37790, 38579 #### [facility] [place] [address] Diet Technician Registered: Manuel Azar MD RBC (Bld) [#/Vol] 4.91 10*6/uL Normal 3.80-5.10 [facility] Comment on above: Performed By: #### 3 61, 927, 1759, 466, 52915, 82122 #### [facility] [place] [address] Diet Technician Registered: Manuel Azar MD WBC (Bld) [#/Vol] 10.9 10*3/uL High 3.8-10.8 [facility] Comment on above: Performed By: #### 3 6127, 927, 1759, 466, 09798, 52949 #### [facility] [place] [address] Diet Technician Registered: Manuel Aazr MD COMPREHENSIVE METABOLIC PANE [facility] 11-01-2024 Albumin [Mass/Vol] 4.7 g/dL Normal 3.6-5.1 [facility] Comment on above: Performed By: #### 3 6127, 927, 1759, 466, 97206, 62296 #### [facility] [place] [address] Diet Technician Registered: Manuel Azar MD Albumin/Globulin [Mass ratio] 1.7 {ratio} Normal 1.0-2.5 [facility] Comment on above: Performed By: #### 3 6127, 927, 1759, 466, 45604, 26503 #### [facility] [place] [address] Diet Technician Registered: Manuel Azar MD ALP [Catalytic activity/Vol] 53 U/L Normal 31-125 [facility] Comment on above: Performed By: #### 3 6127, 927, 1759, 466, 94589, 33444 #### [facility] [place] [address] Diet Technician Registered: Manuel Azar MD ALT [Catalytic activity/Vol] 13 U/L Normal 6-29 [facility] Comment on above: Performed By: #### 3 6127, 927, 1759, 466, 62540, 28006 #### [facility] [place] [address] Diet Technician Registered: Manuel Azar MD AST [Catalytic activity/Vol] 20 U/L Normal 10-30 [facility] Comment on above: Performed By: #### 3 6127, 927, 1759, 466, 32261, 77350 #### [facility] [place] [address] Diet Technician Registered: Manuel Azar MD Bilirubin [Mass/Vol] 0.4 mg/dL Normal 0.2-1.2 [facility] Comment on above: Performed By: #### 3 6127, 927, 1759, 466, 79315, 43166 #### [facility] [place] [address] Diet Technician Registered: Manuel Azar MD BUN/CREATININE RATIO SEE NOTE: Normal 6-22 [facility] Comment on above: Result Comment: Not Reported: BUN and Creatinine are within reference range. Performed By: #### 3 6127, 927, 1759, 466, 75508, 31540 #### [facility] [place] [address] Diet Technician Registered: Manuel Azar MD Calcium [Mass/Vol] 10.0 mg/dL Normal 8.6-10.2 [facility] Comment on above: Performed By: #### 3 6127, 927, 1759, 466, 13193, 25065 #### [facility] [place] [address] Diet Technician Registered: Manuel Azar MD Chloride [Moles/Vol] 104 mmol/L Normal 98-110 [facility] Comment on above: Performed By: #### 3 6127, 927, 1759, 466, 27328, 25584 #### [facility] [place] [address] Diet Technician Registered: Manuel Azar MD CO2 [Moles/Vol] 24 mmol/L Normal 20-32 [facility] Comment on above: Performed By: #### 3 6127, 927, 1759, 466, 19186, 41334 #### [facility] [place] [address] Diet Technician Registered: Manuel Azar MD Creatinine [Mass/Vol] 0.74 mg/dL Normal 0.50-0.96 [facility] Comment on above: Performed By: #### 3 6127, 927, 1759, 466, 68007, 21169 #### [facility] [place] [address] Diet Technician Registered: Manuel Azar MD GFR/1.73 sq M.predicted among non-blacks MDRD (S/P/Bld) [Vol rate/Area] 114 mL/min/{1.73_m2} Normal > OR = 60 [facility] Comment on above: Performed By: #### 3 6127, 927, 1759, 466, 13943, 29499 #### [facility] [place] [address] Diet Technician Registered: Manuel Azar MD Globulin (S) [Mass/Vol] 2.7 g/dL Normal 1.9-3.7 [facility] Comment on above: Performed By: #### 3 6127, 927, 1759, 466, 47386, 83300 #### [facility] [place] [address] Diet Technician Registered: Manuel Azar MD Glucose [Mass/Vol] 82 mg/dL Normal 65-99 [facility] Comment on above: Result Comment: Fasting reference interval Performed By: #### 3 6127, 927, 1759, 466, 04646, 82166 #### [facility] [place] [address] Diet Technician Registered: Manuel Azar MD Potassium [Moles/Vol] 4.8 mmol/L Normal 3.5-5.3 [facility] Comment on above: Performed By: #### 3 6127, 927, 1759, 466, 52710, 21785 #### [facility] [place] [address] Diet Technician Registered: Manuel Azar MD Protein [Mass/Vol] 7.4 g/dL Normal 6.1-8.1 [facility] Comment on above: Performed By: #### 3 6127, 927, 1759, 466, 00273, 59273 #### [facility] [address], [address] [place] [address] Diet Technician Registered: Manuel Azar MD Sodium [Moles/Vol] 138 mmol/L Normal 135-146 [facility] Comment on above: Performed By: #### 3 6127, 927, 1759, 466, 44432, 20462 #### [facility] [place] [address] Diet Technician Registered: Manuel Azar MD Urea nitrogen [Mass/Vol] 15 mg/dL Normal 7-25 [facility] Comment on above: Performed By: #### 3 6127, 927, 1759, 466, 72974, 42246 #### [facility] [place] [address] Diet Technician Registered: Manuel Azar MD FOLATE, SERUMon 11-01-2024 Folate [Mass/Vol] 13.5 ng/mL Normal [facility] Comment on above: Result Comment: Refe rence Range Low: <3.4 Borderline: 3.4-5.4 Normal: >5.4 Performed By: #### 3 6127, 927, 1759, 466, 08291, 81759 #### [facility] [place] [address] Diet Technician Registered: Manuel Azar MD TSH W/REFLEX TO FT4on 2024 TSH W/REFLEX TO FT4 1.04 mIU/L Normal [facility] Comment on above: Result Comment: Refe rence Range > or = 20 Years 0.40-4.50 Ranges First trimester 0.26-2.66 Second trimester 0.55-2.73 Third trimester 0.43-2.91 Performed By: #### 3 6127, 927, 1759, 466, 73356, 64201 #### [facility] [place] [address] Diet Technician Registered: Manuel Azar MD Urinalysis macro (dipstick) panel (U)on 11-01-2024 Bilirubin, UA Negative Negative - 4(70) +++ mg/dL [facility] Blood, UA Negative Negative - 50 Russel/mcL [facility] Clarity, UA Clear [facility] re Color, UA Yellow [facility] Glucose, UA Negative Negative - 1999(110) ++++ mg/dL [facility] [facility] Interpretation and review of laboratory results Normal [facility] Healthny re Ketones, UA Negative Negative - 160(16) ++++ mg/dL [facility] Leukocytes, UA Negative Negative - 500+++ Alma/mcL [facility] Nitrite, UA Negative Negative - Positive [facility] pH, UA 5.5 5 - 9 [facility] Healthcar e Protein, UA Negative Negative - 1999(20) ++++ mg/dL [facility] Spec Grav, UA 1.02 1 - 1.03 [facility] Urobilinogen, UA 0.2 0.2 - 12 mg/dL [facility] VITAMIN B12on 11-01-2024 Cobalamin (Vitamin B12) [Mass/Vol] 672 pg/mL Normal 200-1100 [facility] Comment on above: Performed By: #### 3 5442, 377, 1759, 466, 74232, [id number] #### [facility] [address], [address] [place] [address] Diet Technician Registered: Manuel Azar MD VITAMIN D,25-OH,TOTAL,IAon 0 11-01-2024 VITAMIN D,25-OH,TOTAL,IA 28 ng/mL Low 30-100 [facility] Comment on above: Result Comment: Nara min D Status 25-OH Vitamin D: Deficiency: <20 ng/mL Insufficiency: 20 - 29 ng/mL Optimal: > or = 30 ng/mL For 25-OH Vitamin D testing on patients on D2-supplementation and patients for whom quantitation of D2 and D3 fractions is required, the QuestAssureD(TM) 25-OH VIT D, (D2,D3), LC/MS/MS is recommended: order code 52903 (patients >2yrs). See Note 1 Note 1 For additional information, please refer to http://education.newMentor/faq/TCX519 (This link is being provided for informational/ educational purposes only.) Performed By: #### 3 2486, 591, 1759, 466, 96491, [id number] #### [facility] [address], [address] [place] [address] Diet Technician Registered: Manuel Azar MD IGP,APTIMA HPV,AGE GDLNon AGE GDLN ACOG TESTING Note . [facility] Comment on above: TESTS RESULT FLAG UN ITS REF RANGE LAB Clinician Provided Cytology Information Source.............Vagina No. of containers..01 ThinPrep Vial Age Algo ACOG Martina... FLAG LEGEND: L-Low Normal,H-High Normal,LL-Alert Low,HH-Alert High <-Panic Low,>-Panic High,A-Abnormal,AA-Critical Abnormal Performed at: 01 =[address] [facility] [address] Tamie Johnson MD, IGP, RFX APTIMA HPV ASCU Note . [facility] Comment on above: TESTS RESULT FLAG UN ITS REF RANGE LAB DIAGNOSIS: 02 NEGATIVE FOR INTRAEPITHELIAL LESION OR MALIGNANCY. Specimen adequacy: 02 Satisfactory for evaluation. Performed by: 02 Star W Dreger, Stave Log Cut Off Saw Operator (ASCP) . 02 Note: Note 02 The Pap smear is a screening test designed to aid in the detection of premalignant and malignant conditions of the uterine cervix. It is not a diagnostic procedure and should not be used as the sole means of detecting cervical cancer. Both false-positive and false-negative reports do occur. Test Methodology: Note 02 This liquid based ThinPrep(R) pap test was screened with the use of an image guided system. . 02 The HPV DNA reflex criteria were not met with this specimen result therefore, no HPV testing was performed. FLAG LEGEND: L-Low Normal,H-High Normal,LL-Alert Low,HH-Alert High <-Panic Low,>-Panic High,A-Abnormal,AA-Critical Abnormal Performed at: [address] [address] Tamie Johnson MD, Performed at: = - [address] [id number] Field Underwriter: Tamie Johnson MD, Phone: [phone] Performed at: [address] [id number] Field Underwriter: Tamie Johnson MD, Phone: [phone] [facility] XR CSPINE 2_3 VIEWSon 2022 XR CSPINE 2_3 VIEWS EXAMINATION: XR CSPINE 2_3 VIEWS HISTORY: Shoulder joint pain COMPARISON: No relevant comparison available. FINDINGS: BONES: No significant spondylosis, scoliosis, fracture, or visible bony lesion. DISC SPACES: No significant disc height narrowing, subluxation, or endplate abnormality. PARASPINOUS: Negative. No paraspinous abnormality is seen. OTHER: Negative. IMPRESSION: 1. Unremarkable cervical spine. Electronically authenticated by: SPENSER YANG Date: 2022-11-27 10:56 Normal [facility] CBC AUTO DIFFon 08-03-2022 BASO # 0.0 103/ul Normal 0.0-0.1 [facility] Comment on above: Performed By: #### C BC #### [facility] [address] [address] [address] Grace Phillips Basophils/100 WBC (Bld) 0.5 % Normal 0.2-2.0 [facility] Comment on above: Performed By: #### C BC #### [facility] [address] [place] [address] Dr. Grace Phillips EO # 0.1 103/ul Normal 0.0-0.7 [facility] Comment on above: Performed By: #### C BC #### [facility] [address] [place] [address] Dr. Grace Phillips Eosinophils/100 WBC (Bld) 0.7 % Critically low 0.9-7.0 [facility] Comment on above: Performed By: #### C BC #### [facility] [address] [place] [address] Dr. Grace Phillips Erythrocyte distribution width (RBC) [Ratio] 12.6 % Normal 11.0-15.0 [facility] Comment on above: Performed By: #### C BC #### [facility] [address] [place] [address] Dr. Grace Phillips Hematocrit (Bld) [Volume fraction] 35.2 % Critically low 36.0-48.0 [facility] Comment on above: Performed By: #### C BC #### [facility] [address] [place] [address] Dr. Grace Phillips Hemoglobin (Bld) [Mass/Vol] 11.9 g/dL Critically low 12.0-16.0 [facility] Comment on above: Performed By: #### C BC #### [facility] [address] [place] [address] Dr. Grace Phillips IG # 0.03 10e3/ul Normal 0.00-0.03 [facility] Comment on above: Performed By: #### C BC #### [facility] [address] [place] [address] Dr. Grace Phillips IG % 0.3 % Normal 0.0-0.5 [facility] Comment on above: Performed By: #### C BC #### [facility] [address] [place] [address] Dr. Grace Phillips LYMPH # 1.4 103/ul Normal 1.2-3.8 [facility] Comment on above: Performed By: #### C BC #### [facility] [address] [place] [address] Dr. Grace Phillips Lymphocytes/100 WBC (Bld) 16.4 % Critically low 20.5-60.0 [facility] Comment on above: Performed By: #### C BC #### [facility] [address] [place] [address] Dr. Grace Phillips MANUAL DIFF REQ NO Normal [facility] Comment on above: Performed By: #### C BC #### [facility] [address] [place] [address] Dr. Grace Phillips MCH (RBC) [Entitic mass] 29.0 pg Normal 26.7-34.0 [facility] Comment on above: Performed By: #### C BC #### [facility] [address] [place] [address] Dr. Grace Phillips MCHC (RBC) [Mass/Vol] 33.8 g/dL Normal 29.9-35.2 [facility] Comment on above: Performed By: #### C BC #### [facility] [address] [place] [address] Dr. Grace Phillips MCV (RBC) [Entitic vol] 85.6 fL Normal 81.0-99.0 [facility] Comment on above: Performed By: #### C BC #### [facility] [address] [place] [address] Dr. Grace Phillips MONO # 0.8 103/ul Normal 0.3-0.8 [facility] Comment on above: Performed By: #### C BC #### [facility] [address] [place] [address] Dr. Grace Phillips Monocytes/100 WBC (Bld) 9.0 % Normal 1.7-12.0 [facility] Comment on above: Performed By: #### C BC #### [facility] [address] [place] [address] Dr. Grace Phillips NEUT # 6.3 103/ul Normal 1.4-6.5 [facility] Comment on above: Performed By: #### C BC #### [facility] [address] [place] [address] Dr. Grace Phillips Neutrophils/100 WBC (Bld) 73.1 % Normal 43.0-75.0 [facility] Comment on above: Performed By: #### C BC #### [facility] [address] [place] [address] Dr. Grace Phillips Platelet mean volume (Bld) [Entitic vol] 11.3 fL Normal 9.5-13.5 [facility] Comment on above: Performed By: #### C BC #### [facility] [address] [place] [address] Dr. Grace Phillips PLT 305 103/ul Normal 150-450 [facility] Comment on above: Performed By: #### C BC #### [facility] [address] [place] [address] Dr. Grace Phillips RBC 4.11 106/ul Critically low 4.20-5.40 [facility] Comment on above: Performed By: #### C BC #### [facility] [address] [place] [address] Dr. Grace Phillips WBC 8.6 103/ul Normal 4.0-11.0 [facility] Comment on above: Performed By: #### C BC #### [facility] [address] [place] [address] Dr. Grace Phillips PROF 14(COMP METB)on 022 Albumin [Mass/Vol] 3.0 g/dL Critically low 3.4-5.0 [facility] Comment on above: Performed By: #### C BC #### [facility] [address] [address] [address] Grace Phillips Albumin/Globulin [Mass ratio] 0.7 {ratio} Normal [facility] Comment on above: Performed By: #### C BC #### [facility] [address] [address] [address] Grace Phillips ALP [Catalytic activity/Vol] 166 U/L Critically high 46-116 [facility] Comment on above: Performed By: #### C BC #### [facility] [address] [address] [address] Grace Phillips ALT [Catalytic activity/Vol] 76 U/L Critically high 14-59 [facility] Comment on above: Performed By: #### C BC #### [facility] [address] [place] [address] Dr. Grace Phillips Anion gap [Moles/Vol] 10.8 mmol/L Normal [facility] Comment on above: Performed By: #### C BC #### [facility] [address] [place] [address] Dr. Grace Phillips AST [Catalytic activity/Vol] 20 U/L Normal 15-37 [facility] Comment on above: Performed By: #### C BC #### [facility] [address] [place] [address] Dr. Grace Phillips Bilirubin [Mass/Vol] 0.4 mg/dL Normal 0.2-1.0 [facility] Comment on above: Performed By: #### C BC #### [facility] [address] [place] [address] Dr. Grace Phillips Calcium [Mass/Vol] 9.1 mg/dL Normal 8.5-10.1 [facility] Comment on above: Performed By: #### C BC #### [facility] [address] [address] [address] Grace Phillips Chloride [Moles/Vol] 103 mmol/L Normal 98-107 [facility] Comment on above: Performed By: #### C BC #### [facility] [address] [address] [address] Grace Phillips CO2 [Moles/Vol] 26.9 mmol/L Normal 21.0-32.0 [facility] Comment on above: Performed By: #### C BC #### [facility] [address] [address] [address] Grace Phillips Creatinine [Mass/Vol] 0.53 mg/dL Critically low 0.55-1.02 [facility] Comment on above: Performed By: #### C BC #### [facility] [address] [place] [address] Dr. Grace Phillips EGFR-AF GREENLANDIC >60 Normal >=60 [facility] Comment on above: Performed By: #### C BC #### [facility] [address] [place] [address] Dr. Grace Phillips EGFR-NON AF GREENLANDIC >60 Normal >=60 [facility] Comment on above: Performed By: #### C BC #### [facility] [address] [place] [address] Dr. Grace Phillips Globulin (S) [Mass/Vol] 4.2 g/dL Normal [facility] Comment on above: Performed By: #### C BC #### [facility] [address] [place] [address] Dr. Grace Phillips Glucose [Mass/Vol] 89 mg/dL Normal 74-106 [facility] Comment on above: Performed By: #### C BC #### [facility] [address] [place] [address] Dr. Grace Phillips Potassium [Moles/Vol] 3.7 mmol/L Normal 3.5-5.1 [facility] Comment on above: Performed By: #### C BC #### [facility] [address] [place] [address] Dr. Grace Phillips Protein [Mass/Vol] 7.2 g/dL Normal 6.4-8.2 [facility] Comment on above: Performed By: #### C BC #### [facility] [address] [place] [address] Dr. Grace Phillips Sodium [Moles/Vol] 137 mmol/L Normal 136-145 [facility] Comment on above: Performed By: #### C BC #### [facility] [address] [address] [address] Grace Phillips Urea nitrogen [Mass/Vol] 5.0 mg/dL Critically low 7.0-18.0 [facility] Comment on above: Performed By: #### C BC #### [facility] [address] [address] [address] Grace Phillips Urea nitrogen/Creatinine [Mass ratio] 9.4 mg/mg Normal [facility] Comment on above: Performed By: #### C BC #### [facility] [address] [address] [address] Grace Phillips XR ABD FLAT UP_PA [place] 08-03 XR ABD FLAT UP_PA CH EXAMINATION: XR ABD FLAT UP_PA CH HISTORY: Abdominal pain ; hysterectomy one week ago COMPARISON: No relevant comparison available. FINDINGS: BOWEL GAS PATTERN: Non-obstructed. FREE AIR: None. CALCIFICATIONS: None significant. BONES: No fracture or visible bone lesion. OTHER: Negative. IMPRESSION: 1. No acute cardiopulmonary process. 2. Normal bowel gas pattern; no suspicious fluid levels or significant stool burden. Electronically authenticated by: SPENSER YANG Date: 2022-08-03 15:34 Normal [facility] AMYLASEon 08-01-2022 Amylase [Catalytic activity/Vol] 31 U/L Normal 25-115 [facility] Comment on above: Performed By: #### C BC #### [facility] [address] [place] [address] Dr. Grace Phillips CBC AUTO DIFFon 08-01-2022 BASO # 0.0 103/ul Normal 0.0-0.1 [facility] Comment on above: Performed By: #### C BC #### [facility] [address] [place] [address] Dr. Grace Phillips Basophils/100 WBC (Bld) 0.4 % Normal 0.2-2.0 [facility] Comment on above: Performed By: #### C BC #### [facility] [address] [place] [address] Dr. Grace Phillips EO # 0.0 103/ul Normal 0.0-0.7 [facility] Comment on above: Performed By: #### C BC #### [facility] [address] [place] [address] Dr. Grace Phillips Eosinophils/100 WBC (Bld) 0.3 % Critically low 0.9-7.0 [facility] Comment on above: Performed By: #### C BC #### [facility] [address] [place] [address] Dr. Grace Phillips Erythrocyte distribution width (RBC) [Ratio] 12.8 % Normal 11.0-15.0 [facility] Comment on above: Performed By: #### C BC #### [facility] [address] [place] [address] Dr. Grace Phillips Hematocrit (Bld) [Volume fraction] 36.9 % Normal 36.0-48.0 [facility] Comment on above: Performed By: #### C BC #### [facility] [address] [place] [address] Dr. Grace Phillips Hemoglobin (Bld) [Mass/Vol] 12.3 g/dL Normal 12.0-16.0 [facility] Comment on above: Performed By: #### C BC #### [facility] [address] [place] [address] Dr. Grace Phillips IG # 0.03 10e3/ul Normal 0.00-0.03 [facility] Comment on above: Performed By: #### C BC #### [facility] [address] [place] [address] Dr. Grace Phillips IG % 0.3 % Normal 0.0-0.5 [facility] Comment on above: Performed By: #### C BC #### [facility] [address] [place] [address] Dr. Grace Phillips LYMPH # 1.2 103/ul Normal 1.2-3.8 [facility] Comment on above: Performed By: #### C BC #### [facility] [address] [place] [address] Dr. Grace Phillips Lymphocytes/100 WBC (Bld) 10.8 % Critically low 20.5-60.0 [facility] Comment on above: Performed By: #### C BC #### [facility] [address] [place] [address] Dr. Grace Phillips MANUAL DIFF REQ NO Normal [facility] Comment on above: Performed By: #### C BC #### [facility] [address] [place] [address] Dr. Grace Phillips MCH (RBC) [Entitic mass] 28.3 pg Normal 26.7-34.0 [facility] Comment on above: Performed By: #### C BC #### [facility] [address] [place] [address] Dr. Grace Phillips MCHC (RBC) [Mass/Vol] 33.3 g/dL Normal 29.9-35.2 [facility] Comment on above: Performed By: #### C BC #### [facility] [address] [place] [address] Dr. Grace Phillips MCV (RBC) [Entitic vol] 85.0 fL Normal 81.0-99.0 [facility] Comment on above: Performed By: #### C BC #### [facility] [address] [place] [address] Dr. Grace Phillips MONO # 0.7 103/ul Normal 0.3-0.8 [facility] Comment on above: Performed By: #### C BC #### [facility] [address] [place] [address] Dr. Grace Phillips Monocytes/100 WBC (Bld) 5.7 % Normal 1.7-12.0 [facility] Comment on above: Performed By: #### C BC #### [facility] [address] [place] [address] Dr. Grace Phillips NEUT # 9.4 103/ul Critically high 1.4-6.5 [facility] Comment on above: Performed By: #### C BC #### [facility] [address] [place] [address] Dr. Grace Phillips Neutrophils/100 WBC (Bld) 82.5 % Critically high 43.0-75.0 [facility] Comment on above: Performed By: #### C BC #### [facility] [address] [place] [address] Dr. Grace Phillips Platelet mean volume (Bld) [Entitic vol] 11.6 fL Normal 9.5-13.5 [facility] Comment on above: Performed By: #### C BC #### [facility] [address] [place] [address] Dr. Grace Phillips PLT 270 103/ul Normal 150-450 [facility] Comment on above: Performed By: #### C BC #### [facility] [address] [place] [address] Dr. Grace Phillips RBC 4.34 106/ul Normal 4.20-5.40 [facility] Comment on above: Performed By: #### C BC #### [facility] [address] [place] [address] Dr. Grace Phillips WBC 11.3 103/ul Critically high 4.0-11.0 [facility] Comment on above: Performed By: #### C BC #### [facility] [address] [place] [address] ABD/PELV W CONon 08-01-20 CT ABD/PELV W CON EXAM: CT ABD/PELV W CON Comparison: 05/07/2021 CLINICAL INDICATION: Postop, hysterectomy 07/27/2022. TECHNIQUE: Axial images through the abdomen and pelvis were obtained with intravenous contrast. Coronal and sagittal reconstructions were obtained. Dose reduction techniques were achieved by using automated exposure control and/or adjustment of mA and/or kV according to patient size and/or use of iterative reconstruction technique. CONTRAST: 100 mL of Omnipaque 300 was administered intravenously. FINDINGS: LOWER CHEST: The visualized portions of the lung bases are clear. LIVER: Unremarkable. GALLBLADDER: Prior cholecystectomy. BILE DUCTS: Unremarkable. PANCREAS: Unremarkable. SPLEEN: Unremarkable. ADRENALS: Unremarkable. KIDNEYS/URETERS: Unremarkable. BLADDER: Unremarkable. PELVIC STRUCTURES: Interval hysterectomy. Small slightly hyperdense free fluid layering throughout the pelvis, may suggest developing infectious process. No discrete fluid collection or abscess seen at this time. Slight hyperdensity of the fluid may suggest complex free fluid or questionably blood. The cervix or uterine stump appears hypervascular and hyperemic as best seen on axial images 120-130, could possibly suggest cervicitis versus postsurgical change. No adnexal masses. GI TRACT: Evaluation of bowel limited by fecal contents and lack of distention. No evidence of bowel obstruction. Normal appendix. Slightly thickened appearing loops of small bowel in the lower abdomen/pelvis, raising suspicion for enteritis. Air distended colon, may suggest ileus. VASCULAR STRUCTURES: Unremarkable. LYMPH NODES: No pathologic lymphadenopathy by CT size criteria. PERITONEUM: No free air. SOFT TISSUES: Unremarkable. OSSEOUS STRUCTURES: No acute osseous abnormality. No suspicious osseous lesions. IMPRESSION: Interval hysterectomy. Small slightly hyperdense free fluid layering throughout the pelvis, may suggest developing infectious process. Slight hyperdensity of the fluid may suggest complex free fluid or questionably blood. No fluid collection at this time. No free air. The cervix or uterine stump appears hypervascular and hyperemic as best seen on axial images 120-130, could possibly suggest cervicitis versus postsurgical change. Slightly thickened appearing loops of small bowel in the lower abdomen/pelvis, raising suspicion for enteritis. Air distended colon, may suggest ileus. Normal appendix. Electronically authenticated by: YING CAZARES Date: 2022-08-01 15:24 Normal [facility] ER URINE PROFILEon 2 Bilirubin Ql (U) Negative Normal NEGATIVE [facility] Comment on above: Performed By: #### U MICRO, ERUR #### [facility] [address] [address] [address] Grace Phillips Clarity (U) CLEAR Normal CLEAR [facility] Comment on above: Performed By: #### U MICRO, ERUR #### [facility] [address] [address] [address] Grace Phillips Color (U) YELLOW Normal YELLOW [facility] Comment on above: Performed By: #### U MICRO, ERUR #### [facility] [address] [address] [address] Grace Phillips ERUAHD A micrscopic examination will be performed if indicated. Normal [facility] Comment on above: Performed By: #### U MICRO, ERUR #### [facility] [address] [address] [address] Grace Phillips Glucose Ql (U) Negative Normal NEGATIVE [facility] Comment on above: Performed By: #### U MICRO, ERUR #### [facility] [address] [address] [address] Grace Phillips Hemoglobin Ql (U) LARGE Abnormal NEGATIVE [facility] Comment on above: Performed By: #### U MICRO, ERUR #### [facility] [address] [address] [address] Grace Phillips Ketones Ql (U) Negative Normal NEGATIVE [facility] Comment on above: Performed By: #### U MICRO, ERUR #### [facility] [address] [place] [address] Dr. Grace Phillips LEUKOCYTES Negative Normal NEGATIVE [facility] Comment on above: Performed By: #### U MICRO, ERUR #### [facility] [address] [address] [address] Grace Phillips Nitrite Ql (U) Negative Normal NEGATIVE [facility] Comment on above: Performed By: #### U MICRO, ERUR #### [facility] [address] [address] [address] Grace Phillips pH (U) 5.5 [pH] Normal 5-9 [facility] Comment on above: Performed By: #### U MICRO, ERUR #### [facility] [address] [address] [address] Grace Phillips SPEC GRAVITY 1.010 Normal 1.005-<=1.025 [facility] Comment on above: Performed By: #### U MICRO, ERUR #### [facility] [address] [place] [address] Dr. Grace Phillips UA PROTEIN Negative Normal NEGATIVE/ TRACE [facility] Comment on above: Performed By: #### U MICRO, ERUR #### [facility] [address] [address] [address] Grace Phillips UR MICRO IND INDICATED Normal [facility] Comment on above: Performed By: #### U MICRO, ERUR #### [facility] [address] [place] [address] Dr. Grace Phillips Urobilinogen Qn (U) 1.0 {George'U}/dL Normal 0.2 - 1. 0 [facility] Comment on above: Performed By: #### U MICRO, ERUR #### [facility] [address] [place] [address] Dr. Grace Phillips LIPASEon 08-01-2022 Lipase [Catalytic activity/Vol] 68.0 U/L Critically low 73.0-393.0 [facility] Comment on above: Performed By: #### C BC #### [facility] [address] [place] [address] Dr. Grace Phillips PROF 14(COMP METB)on Albumin [Mass/Vol] 3.4 g/dL Normal 3.4-5.0 [facility] Comment on above: Performed By: #### C BC #### [facility] [address] [place] [address] Dr. Grace Phillips Albumin/Globulin [Mass ratio] 0.8 {ratio} Normal [facility] Comment on above: Performed By: #### C BC #### [facility] [address] [place] [address] Dr. Grace Phillips ALP [Catalytic activity/Vol] 203 U/L Critically high 46-116 [facility] Comment on above: Performed By: #### C BC #### [facility] [address] [place] [address] Dr. Grace Phillips ALT [Catalytic activity/Vol] 156 U/L Critically high 14-59 [facility] Comment on above: Performed By: #### C BC #### [facility] [address] [place] [address] Dr. Grace Phillips Anion gap [Moles/Vol] 13.9 mmol/L Normal [facility] Comment on above: Performed By: #### C BC #### [facility] [address] [place] [address] Dr. Grace Phillips AST [Catalytic activity/Vol] 96 U/L Critically high 15-37 [facility] Comment on above: Performed By: #### C BC #### [facility] [address] [place] [address] Dr. Grace Phillips Bilirubin [Mass/Vol] 0.7 mg/dL Normal 0.2-1.0 [facility] Comment on above: Performed By: #### C BC #### [facility] [address] [place] [address] Dr. Grace Phillips Calcium [Mass/Vol] 9.1 mg/dL Normal 8.5-10.1 [facility] Comment on above: Performed By: #### C BC #### [facility] [address] [place] [address] Dr. Grace Phillips Chloride [Moles/Vol] 98 mmol/L Normal 98-107 [facility] Comment on above: Performed By: #### C BC #### [facility] [address] [place] [address] Dr. Grace Phillips CO2 [Moles/Vol] 27.3 mmol/L Normal 21.0-32.0 [facility] Comment on above: Performed By: #### C BC #### [facility] [address] [place] [address] Dr. Grace Phillips Creatinine [Mass/Vol] 0.53 mg/dL Critically low 0.55-1.02 [facility] Comment on above: Performed By: #### C BC #### [facility] [address] [place] [address] Dr. Grace Phillips EGFR-AF GREENLANDIC >60 Normal >=60 [facility] Comment on above: Performed By: #### C BC #### [facility] [address] [place] [address] Dr. Grace Phillips EGFR-NON AF GREENLANDIC >60 Normal >=60 [facility] Comment on above: Performed By: #### C BC #### [facility] [address] [place] [address] Dr. Grace Phillips Globulin (S) [Mass/Vol] 4.3 g/dL Normal [facility] Comment on above: Performed By: #### C BC #### [facility] [address] [address] [address] Grace Phillips Glucose [Mass/Vol] 109 mg/dL Critically high 74-106 T [facility] Comment on above: Performed By: #### C BC #### [facility] [address] [address] [address] Grace Phillips Potassium [Moles/Vol] 3.2 mmol/L Critically low 3.5-5.1 [facility] Comment on above: Performed By: #### C BC #### [facility] [address] [address] [address] Grace Phillips Protein [Mass/Vol] 7.7 g/dL Normal 6.4-8.2 [facility] Comment on above: Performed By: #### C BC #### [facility] [address] [place] [address] Dr. Grace Phillips Sodium [Moles/Vol] 136 mmol/L Normal 136-145 [facility] Comment on above: Performed By: #### C BC #### [facility] [address] [place] [address] Dr. Grace Phillips Urea nitrogen [Mass/Vol] 7.0 mg/dL Normal 7.0-18.0 [facility] Comment on above: Performed By: #### C BC #### [facility] [address] [address] [address] Grace Phillips Urea nitrogen/Creatinine [Mass ratio] 13.2 mg/mg Normal [facility] Comment on above: Performed By: #### C BC #### [facility] [address] [address] [address] Grace Phillips URINE MICROSCOPIC ONLYon BACTERIA TRACE Abnormal NONE SEEN [facility] Comment on above: Performed By: #### U MICRO, ERUR #### [facility] [address] [address] [address] Grace Phillips Bacteria identified Cx Nom (U) NOT INDICATED Normal [facility] Comment on above: Performed By: #### U MICRO, ERUR #### [facility] [address] [place] [address] Dr. Grace Phillips CAST NONE SEEN Normal NONE SEEN [facility] Comment on above: Performed By: #### U MICRO, ERUR #### [facility] [address] [place] [address] Dr. Grace Phillips Crystals LM Nom (Urine sed) NONE SEEN Normal NONE SEEN [facility] Comment on above: Performed By: #### U MICRO, ERUR #### [facility] [address] [place] [address] Dr. Grace Phillips Epithelial cells LM Ql (Urine sed) MODERATE Abnormal NONE SEEN /RARE [facility] Comment on above: Performed By: #### U MICRO, ERUR #### [facility] [address] [place] [address] Dr. Grace Phillips MUCOUS MODERATE Abnormal NONE SEEN [facility] Comment on above: Performed By: #### U MICRO, ERUR #### [facility] [address] [place] [address] Dr. Grace Phillips RBC 2-5 Abnormal 0-2 [facility] Comment on above: Performed By: #### U MICRO, ERUR #### [facility] [address] [place] [address] Dr. Grace Phillips WBC 0-2 Abnormal NONE SEEN [facility] Comment on above: Performed By: #### U MICRO, ERUR #### [facility] [address] [place] [address] Dr. Grace Phillips CBC AUTO DIFFon 07-27-2022 BASO # 0.1 103/ul Normal 0.0-0.1 [facility] Comment on above: Performed By: #### C BC #### [facility] [address] [place] [address] Dr. Grace Phillips Basophils/100 WBC (Bld) 1.1 % Normal 0.2-2.0 [facility] Comment on above: Performed By: #### C BC #### [facility] [address] [place] [address] Dr. Grace Phillips EO # 0.1 103/ul Normal 0.0-0.7 [facility] Comment on above: Performed By: #### C BC #### [facility] [address] [place] [address] Dr. Grace Phillips Eosinophils/100 WBC (Bld) 0.7 % Critically low 0.9-7.0 [facility] Comment on above: Performed By: #### C BC #### [facility] [address] [place] [address] Dr. Grace Phillips Erythrocyte distribution width (RBC) [Ratio] 13.0 % Normal 11.0-15.0 [facility] Comment on above: Performed By: #### C BC #### [facility] [address] [place] [address] Dr. Grace Phillips Hematocrit (Bld) [Volume fraction] 43.0 % Normal 36.0-48.0 [facility] Comment on above: Performed By: #### C BC #### [facility] [address] [place] [address] Dr. Grace Phillips Hemoglobin (Bld) [Mass/Vol] 14.4 g/dL Normal 12.0-16.0 [facility] Comment on above: Performed By: #### C BC #### [facility] [address] [place] [address] Dr. Grace Phillips IG # 0.01 10e3/ul Normal 0.00-0.03 [facility] Comment on above: Performed By: #### C BC #### [facility] [address] [place] [address] Dr. Grace Phillips IG % 0.1 % Normal 0.0-0.5 [facility] Comment on above: Performed By: #### C BC #### [facility] [address] [place] [address] Dr. Grace Phillips LYMPH # 2.8 103/ul Normal 1.2-3.8 [facility] Comment on above: Performed By: #### C BC #### [facility] [address] [place] [address] Dr. Grace Phillips Lymphocytes/100 WBC (Bld) 37.5 % Normal 20.5-60.0 [facility] Comment on above: Performed By: #### C BC #### [facility] [address] [place] [address] Dr. Grace Phillips MANUAL DIFF REQ NO Normal [facility] Comment on above: Performed By: #### C BC #### [facility] [address] [place] [address] Dr. Grace Phillips MCH (RBC) [Entitic mass] 29.0 pg Normal 26.7-34.0 [facility] Comment on above: Performed By: #### C BC #### [facility] [address] [place] [address] Dr. Grace Phillips MCHC (RBC) [Mass/Vol] 33.5 g/dL Normal 29.9-35.2 [facility] Comment on above: Performed By: #### C BC #### [facility] [address] [place] [address] Dr. Grace Phillips MCV (RBC) [Entitic vol] 86.5 fL Normal 81.0-99.0 [facility] Comment on above: Performed By: #### C BC #### [facility] [address] [place] [address] Dr. Grace Phillips MONO # 0.6 103/ul Normal 0.3-0.8 [facility] Comment on above: Performed By: #### C BC #### [facility] [address] [place] [address] Dr. Grace Phillips Monocytes/100 WBC (Bld) 8.0 % Normal 1.7-12.0 [facility] Comment on above: Performed By: #### C BC #### [facility] [address] [place] [address] Dr. Grace Phillips NEUT # 4.0 103/ul Normal 1.4-6.5 [facility] Comment on above: Performed By: #### C BC #### [facility] [address] [place] [address] Dr. Grace Phillips Neutrophils/100 WBC (Bld) 52.6 % Normal 43.0-75.0 [facility] Comment on above: Performed By: #### C BC #### [facility] [address] [address] [address] Grace Phillpis Platelet mean volume (Bld) [Entitic vol] 11.8 fL Normal 9.5-13.5 [facility] Comment on above: Performed By: #### C BC #### [facility] [address] [place] [address] Dr. Grace Phillips PLT 271 103/ul Normal 150-450 [facility] Comment on above: Performed By: #### C BC #### [facility] [address] [address] [address] Grace Phillips RBC 4.97 106/ul Normal 4.20-5.40 [facility] Comment on above: Performed By: #### C BC #### [facility] [address] [place] [address] Dr. Grace Phillips WBC 7.5 103/ul Normal 4.0-11.0 [facility] Comment on above: Performed By: #### C BC #### [facility] [address] [place] [address] Dr. Grace Phillips PREG HCG QUALon 07-27-2022 , QUAL Negative Normal NEGATIVE [facility] Comment on above: Performed By: #### U MICRO, ERUR #### [facility] [address] [place] [address] Dr. Grace Phillips Covid-19 PCR (CVDTB)on 07-09 SARS-CoV-2 (COVID-19) RNA ERLIN+probe Ql (Unsp spec) Not detected Normal NOT DETECTED [facility] Comment on above: Result Comment: This test is not yet approved or cleared by the [place] FDA. When there are no FDA-approved or cleared tests available, and other criteria are met, FDA can make tests available under an emergency access mechanism called an Emergency Use Authorization (EUA). The EUA for this test is supported by the [place] of Health and Human Service's (HHS's) declaration that circumstances exist to justify the emergency use of in vitro diagnostics for the detection and/or diagnosis of the virus that causes COVID-19. This EUA will remain in effect (meaning this test can be used) for the duration of the COVID-19 declaration justifying emergency of IVDs, unless it is terminated or revoked by FDA (after which the test may no longer be used). When diagnostic testing is negative, the possibility of a false negative should be considered in the context of a patient's recent exposures and the presence of clinical signs and symptoms consistent with SARS-CoV-2. Performed By: #### C BC #### [facility] [address] [place] [address] Dr. Grace Phillips TYPE AND SCREENon 07-23-2022 TYPE AND SCREEN Negative Normal [facility] Comment on above: Performed By: #### U MICRO, ERUR #### [facility] [address] [place] [address] Dr. Grace Phillips CBC AUTO DIFFon 05-21-2022 BASO # 0.1 103/ul Normal 0.0-0.1 [facility] Comment on above: Performed By: #### C BC #### [facility] [address] [place] [address] Dr. Grace Phillips Basophils/100 WBC (Bld) 1.1 % Normal 0.2-2.0 [facility] Comment on above: Performed By: #### C BC #### [facility] [address] [place] [address] Dr. Grace Phillips EO # 0.0 103/ul Normal 0.0-0.7 [facility] Comment on above: Performed By: #### C BC #### [facility] [address] [place] [address] Dr. Grace Phillips Eosinophils/100 WBC (Bld) 0.5 % Critically low 0.9-7.0 [facility] Comment on above: Performed By: #### C BC #### [facility] [address] [place] [address] Dr. Grace Phillips Erythrocyte distribution width (RBC) [Ratio] 13.2 % Normal 11.0-15.0 [facility] Comment on above: Performed By: #### C BC #### [facility] [address] [place] [address] Dr. Grace Phillips Hematocrit (Bld) [Volume fraction] 40.7 % Normal 36.0-48.0 [facility] Comment on above: Performed By: #### C BC #### [facility] [address] [place] [address] Dr. Grace Phillips Hemoglobin (Bld) [Mass/Vol] 13.2 g/dL Normal 12.0-16.0 [facility] Comment on above: Performed By: #### C BC #### [facility] [address] [place] [address] Dr. Grace Phillips IG # 0.02 10e3/ul Normal 0.00-0.03 [facility] Comment on above: Performed By: #### C BC #### [facility] [address] [place] [address] Dr. Grace Phillips IG % 0.2 % Normal 0.0-0.5 [facility] Comment on above: Performed By: #### C BC #### [facility] [address] [place] [address] Dr. Grace Phillips LYMPH # 2.7 103/ul Normal 1.2-3.8 [facility] Comment on above: Performed By: #### C BC #### [facility] [address] [place] [address] Dr. Grace Phillips Lymphocytes/100 WBC (Bld) 32.4 % Normal 20.5-60.0 [facility] Comment on above: Performed By: #### C BC #### [facility] [address] [place] [address] Dr. Grace Phillips MANUAL DIFF REQ NO Normal [facility] Comment on above: Performed By: #### C BC #### [facility] [address] [place] [address] Dr. Grace Phillips MCH (RBC) [Entitic mass] 29.1 pg Normal 26.7-34.0 [facility] Comment on above: Performed By: #### C BC #### [facility] [address] [place] [address] Dr. Grace Phillips MCHC (RBC) [Mass/Vol] 32.4 g/dL Normal 29.9-35.2 [facility] Comment on above: Performed By: #### C BC #### [facility] [address] [address] [address] Grace Phillips MCV (RBC) [Entitic vol] 89.6 fL Normal 81.0-99.0 [facility] Comment on above: Performed By: #### C BC #### [facility] [address] [address] [address] Grace Phillips MONO # 0.6 103/ul Normal 0.3-0.8 [facility] Comment on above: Performed By: #### C BC #### [facility] [address] [place] [address] Dr. Grace Phillips Monocytes/100 WBC (Bld) 7.3 % Normal 1.7-12.0 [facility] Comment on above: Performed By: #### C BC #### [facility] [address] [place] [address] Dr. Grace Phillips NEUT # 4.9 103/ul Normal 1.4-6.5 [facility] Comment on above: Performed By: #### C BC #### [facility] [address] [place] [address] Dr. Grace Phillips Neutrophils/100 WBC (Bld) 58.5 % Normal 43.0-75.0 [facility] Comment on above: Performed By: #### C BC #### [facility] [address] [place] [address] Dr. Grace Phillips Platelet mean volume (Bld) [Entitic vol] 11.6 fL Normal 9.5-13.5 [facility] Comment on above: Performed By: #### C BC #### [facility] [address] [place] [address] Dr. Grace Phillips PLT 284 103/ul Normal 150-450 [facility] Comment on above: Performed By: #### C BC #### [facility] [address] [place] [address] Dr. Grace Phillips RBC 4.54 106/ul Normal 4.20-5.40 [facility] Comment on above: Performed By: #### C BC #### [facility] [address] [address] [address] Grace Phillips WBC 8.3 103/ul Normal 4.0-11.0 [facility] Comment on above: Performed By: #### C BC #### [facility] [address] [address] [address] Grace Phillips URon 05-21-2022 , QUAL Negative Normal NEGATIVE [facility] Comment on above: Performed By: #### C BC #### [facility] [address] [address] [address] Grace Phillips PROF 14(COMP METB)on 022 Albumin [Mass/Vol] 3.9 g/dL Normal 3.4-5.0 [facility] Comment on above: Performed By: #### T SH, CMP #### [facility] [address] [place] [address] Dr. Grace Phillips Albumin/Globulin [Mass ratio] 1.2 {ratio} Normal [facility] Comment on above: Performed By: #### T SH, CMP #### [facility] [address] [place] [address] Dr. Grace Phillips ALP [Catalytic activity/Vol] 56 U/L Normal 46-116 [facility] Comment on above: Performed By: #### T SH, CMP #### [facility] [address] [place] [address] Dr. Grace Phillips ALT [Catalytic activity/Vol] 18 U/L Normal 14-59 [facility] Comment on above: Performed By: #### T SH, CMP #### [facility] [address] [place] [address] Dr. Grace Phillips Anion gap [Moles/Vol] 10.9 mmol/L Normal [facility] Comment on above: Performed By: #### T SH, CMP #### [facility] [address] [place] [address] Dr. Grace Phillips AST [Catalytic activity/Vol] 12 U/L Critically low 15-37 [facility] Comment on above: Performed By: #### T SH, CMP #### [facility] [address] [place] [address] Dr. Grace Phillips Bilirubin [Mass/Vol] 0.2 mg/dL Normal 0.2-1.0 [facility] Comment on above: Performed By: #### T SH, CMP #### [facility] [address] [place] [address] Dr. Grace Phillips Calcium [Mass/Vol] 9.3 mg/dL Normal 8.5-10.1 [facility] Comment on above: Performed By: #### T SH, CMP #### [facility] [address] [place] [address] Dr. Grace Phillips Chloride [Moles/Vol] 104 mmol/L Normal 98-107 [facility] Comment on above: Performed By: #### T SH, CMP #### [facility] [address] [place] [address] Dr. Grace Phillips CO2 [Moles/Vol] 28.0 mmol/L Normal 21.0-32.0 [facility] Comment on above: Performed By: #### T SH, CMP #### [facility] [address] [place] [address] Dr. Grace Phillips Creatinine [Mass/Vol] 0.71 mg/dL Normal 0.55-1.02 [facility] Comment on above: Performed By: #### T SH, CMP #### [facility] [address] [place] [address] Dr. Grace Phillips EGFR-AF GREEN[place]IC >60 Normal >=60 [facility] Comment on above: Performed By: #### T SH, CMP #### [facility] [address] [place] [address] Dr. Grace Phillips EGFR-NON AF GRE[place]IC >60 Normal >=60 [facility] Comment on above: Performed By: #### T SH, CMP #### [facility] [address] [place] [address] Dr. Grace Phillips Globulin (S) [Mass/Vol] 3.2 g/dL Normal [facility] Comment on above: Performed By: #### T SH, CMP #### [facility] [address] [address] [address] Grace Phillips Glucose [Mass/Vol] 97 mg/dL Normal 74-106 [facility] Comment on above: Performed By: #### T SH, CMP #### [facility] [address] [address] [address] Grace Phillips Potassium [Moles/Vol] 3.9 mmol/L Normal 3.5-5.1 [facility] Comment on above: Performed By: #### T SH, CMP #### [facility] [address] [address] [address] Grace Phillips Protein [Mass/Vol] 7.1 g/dL Normal 6.4-8.2 [facility] Comment on above: Performed By: #### T SH, CMP #### [facility] [address] [place] [address] Dr. Grace Phillips Sodium [Moles/Vol] 139 mmol/L Normal 136-145 [facility] Comment on above: Performed By: #### T SH, CMP #### [facility] [address] [place] [address] Dr. Grace Phillips Urea nitrogen [Mass/Vol] 13.0 mg/dL Normal 7.0-18.0 [facility] Comment on above: Performed By: #### T SH, CMP #### [facility] [address] [place] [address] Dr. Grace Phillips Urea nitrogen/Creatinine [Mass ratio] 18.3 mg/mg Normal [facility] Comment on above: Performed By: #### T SH, CMP #### [facility] [address] [place] [address] Dr. Grace Phillips TSHon 05-21-2022 TSH 1.765 uIU/mL Normal 0.358-3.740 [facility] Comment on above: Performed By: #### T SH, CMP #### [facility] [address] [place] [address] Dr. Grace Phillips PAP ACOG PANEL 2: 21 to 29on 05-07-2022 . . Normal [facility] Comment on above: Performed By: #### C BC #### [facility] [address] [place] [address] Dr. Grace Phililps Age Gdln ACOG Testing 21-29 Normal [facility] Comment on above: Performed By: #### C BC #### [facility] [address] [address] [address] Grace Phillips DIAGNOSIS: Comment Normal [facility] Comment on above: Result Comment: NEGA TIVE FOR INTRAEPITHELIAL LESION OR MALIGNANCY. CELLULAR CHANGES ASSOCIATED WITH INFLAMMATION ARE PRESENT. Performed By: #### C BC #### [facility] [address] [address] [address] Grace Phillips Methodology: Comment [facility] Comment on above: Result Comment: This liquid based ThinPrep(R) pap test was screened with the use of an image guided system. Performed By: #### C BC #### [facility] [address] [place] [address] Dr. Grace Phillips Note: Comment [facility] Comment on above: Result Comment: The Pap smear is a screening test designed to aid in the detection of premalignant and malignant conditions of the uterine cervix. It is not a diagnostic procedure and should not be used as the sole means of detecting cervical cancer. Both false-positive and false-negative reports do occur. . Performed By: #### C BC #### [facility] [address] [place] [address] Dr. Grace Phillips Performed by: Comment Normal [facility] Comment on above: Result Comment: Sveta Arredondo, Stave Log Cut Off Saw Operator (ASCP) Performed By: #### C BC #### [facility] [address] [place] [address] Dr. Grace Phillips Reflex Criteria: Comment [facility] Comment on above: Result Comment: The HPV DNA reflex criteria were not met with this specimen result therefore, no HPV testing was performed. . Performed By: #### C BC #### [facility] [address] [place] [address] Dr. Grace Phillips Specimen adequacy: Comment Normal [facility] Comment on above: Result Comment: Sati sfactory for evaluation. Endocervical and/or squamous metaplastic cells (endocervical component) are present. Performed By: #### C BC #### [facility] [address] [place] [address] Dr. Grace Phillips VAGINITIS/VAGINOSIS DNA PROB David 03-21-2022 Caitlin species Negative Normal Negative [facility] Comment on above: Performed By: #### C BC #### [facility] [address] [place] [address] Dr. Grace Phillips Gardnerella vaginalis Negative Normal Negative [facility] Comment on above: Performed By: #### C BC #### [facility] [address] [place] [address] Dr. Grace Phillips Trichomonas vaginalis Negative Normal Negative [facility] Comment on above: Performed By: #### C BC #### [facility] [address] [place] [address] Dr. Grace Phillips CHLAMYDIA/GONOCOCCUS ERLIN (SW AB/URINE/PAPon 03-20-2022 Chlamydia trachomatis, ERLIN Negative Normal Negative [facility] Comment on above: Performed By: #### C BC #### [facility] [address] [place] [address] Dr. Grace Phillips Neisseria gonorrhoeae, ERLIN Negative Normal Negative [facility] Comment on above: Performed By: #### C BC #### [facility] [address] [place] [address] Dr. Grace Phillips CBC AUTO DIFFon 02-26-2022 BASO # 0.1 103/ul Normal 0.0-0.1 [facility] Comment on above: Performed By: #### C BC #### [facility] [address] [place] [address] Dr. Grace Phillips Basophils/100 WBC (Bld) 1.0 % Normal 0.2-2.0 [facility] Comment on above: Performed By: #### C BC #### [facility] [address] [place] [address] Dr. Grace Phillips EO # 0.0 103/ul Normal 0.0-0.7 [facility] Comment on above: Performed By: #### C BC #### [facility] [address] [place] [address] Dr. Grace Phillips Eosinophils/100 WBC (Bld) 0.4 % Critically low 0.9-7.0 [facility] Comment on above: Performed By: #### C BC #### [facility] [address] [place] [address] Dr. Grace Phillips Erythrocyte distribution width (RBC) [Ratio] 13.4 % Normal 11.0-15.0 [facility] Comment on above: Performed By: #### C BC #### [facility] [address] [place] [address] Dr. Grace Phillips Hematocrit (Bld) [Volume fraction] 44.2 % Normal 36.0-48.0 [facility] Comment on above: Performed By: #### C BC #### [facility] [address] [place] [address] Dr. Grace Phillips Hemoglobin (Bld) [Mass/Vol] 14.7 g/dL Normal 12.0-16.0 [facility] Comment on above: Performed By: #### C BC #### [facility] [address] [place] [address] Dr. Grace Phillips IG # 0.03 10e3/ul Normal 0.00-0.03 [facility] Comment on above: Performed By: #### C BC #### [facility] [address] [place] [address] Dr. Grace Phillips IG % 0.4 % Normal 0.0-0.5 [facility] Comment on above: Performed By: #### C BC #### [facility] [address] [place] [address] Dr. Grace Phillips LYMPH # 2.3 103/ul Normal 1.2-3.8 [facility] Comment on above: Performed By: #### C BC #### [facility] [address] [place] [address] Dr. Grace Phillips Lymphocytes/100 WBC (Bld) 27.9 % Normal 20.5-60.0 [facility] Comment on above: Performed By: #### C BC #### [facility] [address] [place] [address] Dr. Grace Phillips MANUAL DIFF REQ NO Normal [facility] Comment on above: Performed By: #### C BC #### [facility] [address] [place] [address] Dr. Grace Phillips MCH (RBC) [Entitic mass] 29.2 pg Normal 26.7-34.0 [facility] Comment on above: Performed By: #### C BC #### [facility] [address] [place] [address] Dr. Grace Phillips MCHC (RBC) [Mass/Vol] 33.3 g/dL Normal 29.9-35.2 [facility] Comment on above: Performed By: #### C BC #### [facility] [address] [place] [address] Dr. Grace Phillips MCV (RBC) [Entitic vol] 87.7 fL Normal 81.0-99.0 [facility] Comment on above: Performed By: #### C BC #### [facility] [address] [place] [address] Dr. Grace Phillips MONO # 0.7 103/ul Normal 0.3-0.8 [facility] Comment on above: Performed By: #### C BC #### [facility] [address] [place] [address] Dr. Grace Phillips Monocytes/100 WBC (Bld) 8.0 % Normal 1.7-12.0 [facility] Comment on above: Performed By: #### C BC #### [facility] [address] [place] [address] Dr. Grace Phillips NEUT # 5.2 103/ul Normal 1.4-6.5 [facility] Comment on above: Performed By: #### C BC #### [facility] [address] [place] [address] Dr. Grace Phillips Neutrophils/100 WBC (Bld) 62.3 % Normal 43.0-75.0 [facility] Comment on above: Performed By: #### C BC #### [facility] [address] [address] [address] Grace Phillips Platelet mean volume (Bld) [Entitic vol] 11.5 fL Normal 9.5-13.5 [facility] Comment on above: Performed By: #### C BC #### [facility] [address] [place] [address] Dr. Grace Phillips PLT 291 103/ul Normal 150-450 [facility] Comment on above: Performed By: #### C BC #### [facility] [address] [address] [address] Grace Phillips RBC 5.04 106/ul Normal 4.20-5.40 [facility] Comment on above: Performed By: #### C BC #### [facility] [address] [place] [address] Dr. Grace Phillips WBC 8.3 103/ul Normal 4.0-11.0 [facility] Comment on above: Performed By: #### C BC #### [facility] [address] [place] [address] Dr. Grace Phillips PREG HCG QUALon 02-26-2022 , QUAL Negative Normal NEGATIVE [facility] Comment on above: Performed By: #### U MICRO, ERUR #### [facility] [address] [place] [address] Dr. Grace Phillips [facility] 02-06 SARS-CoV-2 (COVID-19) RNA ERLIN+probe Ql (Unsp spec) Not detected Normal NOT DETECTED [facility] Comment on above: Result Comment: This test is not yet approved or cleared by the [place] FDA. When there are no FDA-approved or cleared tests available, and other criteria are met, FDA can make tests available under an emergency access mechanism called an Emergency Use Authorization (EUA). The EUA for this test is supported by the Md Ophthalmologist of Health and Human Service's (HHS's) declaration that circumstances exist to justify the emergency use of in vitro diagnostics for the detection and/or diagnosis of the virus that causes COVID-19. This EUA will remain in effect (meaning this test can be used) for the duration of the COVID-19 declaration justifying emergency of IVDs, unless it is terminated or revoked by FDA (after which the test may no longer be used). When diagnostic testing is negative, the possibility of a false negative should be considered in the context of a patient's recent exposures and the presence of clinical signs and symptoms consistent with SARS-CoV-2. Performed By: #### C VDTBH #### [facility] [address] [place] [address] Dr. Grace Phillips CHLAMYDIA/GONOCOCCUS ERLIN ( AB/URINE/PAPon 02-05-2022 Chlamydia trachomatis, ERLIN Negative Normal Negative [facility] Comment on above: Performed By: #### U MICRO, ERUR #### [facility] [address] [place] [address] Dr. Grace Phillips Neisseria gonorrhoeae, ERLIN Negative Normal Negative [facility] Comment on above: Performed By: #### U MICRO, ERUR #### [facility] [address] [place] [address] Dr. Grace Phillips VAGINITIS/VAGINOSIS DNA PROB David 02-04-2022 Caitlin species Negative Normal Negative [facility] Comment on above: Performed By: #### U MICRO, ERUR #### [facility] [address] [place] [address] Dr. Grace Phillips Gardnerella vaginalis Negative Normal Negative [facility] Comment on above: Performed By: #### U MICRO, ERUR #### [facility] [address] [place] [address] Dr. Grace Phillips Trichomonas vaginalis Negative Normal Negative [facility] Comment on above: Performed By: #### U MICRO, ERUR #### [facility] [address] [place] [address] Dr. Grace Phillips US PELVIS AND TRANSVAGon US PELVIS AND TRANSVAG EXAMINATION: US PELVIS AND TRANSVAG HISTORY: Pelvic and perineal pain COMPARISON: 04/26/2020 FINDINGS: The uterus is normal in size, contour and myometrial echotexture with no focal mass. The uterus measures 6.9 x 3.7 x 5.0 cm. Retroflexed. No focal myometrial mass The endometrium measures 6.3 mm, normal. The right ovary is normal in appearance measuring 3.4 x 1.0 x 1.5 cm. Normal color and Doppler flow. Normal subcentimeter follicles. The left ovary measures 4.4 x 1.6 x 2.5 cm. Normal color Doppler flow. Normal subcentimeter follicles Multiple dilated left adnexal. Pelvic vessels IMPRESSION: Left periuterine and periadnexal hypervascularity, consider vascular congestion/reflux Electronically authenticated by: KATI BRADSHAW Date: 2022-02-03 17:00 Normal [facility] OVA AND PARASITE EXAMINATION on 01-06-2022 Ova + Parasite Exam Final report Normal [facility] Comment on above: Result Comment: Thes e results were obtained using wet preparation(s) and trichrome stained smear. This test does not include testing for Cryptosporidium parvum, Cyclospora, or Microsporidia. Performed By: #### O VAPE #### [facility] [address] [place] [address] Dr. Grace Phillips Result 1 Comment Normal [facility] Comment on above: Result Comment: No o va, cysts, or parasites seen. . One negative specimen does not rule out the possibility of a parasitic infection. Performed By: #### O VAPE #### [facility] [address] [place] [address] Dr. Grace Phillips Result Comment: No S almonella or Shigella recovered. Performed By: #### C BC #### [facility] [address] [place] [address] Dr. Grace Phillips Result Comment: No C ampylobacter species isolated. STOOL CULTUREon 01-06-2022 Campylobacter Culture Final report Normal [facility] Comment on above: Performed By: #### C BC #### [facility] [address] [place] [address] Dr. Grace Phillips E coli Shiga Toxin EIA Negative Normal Negative [facility] Comment on above: Performed By: #### C BC #### [facility] [address] [place] [address] Dr. Grace Phillips Salmonella/Shigella Screen Final report Normal [facility] Comment on above: Performed By: #### C BC #### [facility] [address] [place], [place] [address] Dr. Grace Phillips C. DIFF PCRon 01-02-2022 C. DIFFICILE PCR Negative Normal NEGATIVE [facility] Comment on above: Performed By: #### C BC #### [facility] [address] [place], [place] [address] Dr. Grace Phillips RAD EGD - documentation only do not orderon 05-13-2021 RAD EGD - documentation only do not order [employer] Other Coding Summary.on 02-03-2017 Coding Summary. CODING DATE: 02/03/2017 FINAL [facility] DSC STATUS: Home (Routine DC) PAYOR: Medicaid ADMIT DX: REASON FOR VISIT DX: S62.133A Displaced fracture of capitate [os magnum] bone, unspecified wrist, initial encounter for closed fracture FINAL DX: PRINCIPAL: S62.133A Displaced fracture of capitate [os magnum] bone, unspecified wrist, initial encounter for closed fracture SECONDARY: W22.09XA Striking against other stationary object, initial encounter F17.210 Nicotine dependence, cigarettes, uncomplicated PROCEDURES DOCTOR NAME DATE NOTE: The code number assigned matches the documented diagnosis and / or procedure in the patient's chart. However, the narrative phrase printed from the coding software may appear abbreviated, or result in slightly different terminology. Coded By: Nat Buckley Date Saved: 02/03/2017 02:36 pm [facility] Vital Signs Date Time Vital Sign Value Performing Clinician Facility 01-16-2025 14:15-0400 Body mass index (BMI) [Ratio] 24.18 kg/m2 [employer] Work Phone: [facility] 01-16-2025 14:15-0400 Body weight 56.16 kg [employer] Work Phone: [facility] 01-16-2025 14:15-0400 Diastolic blood pressure 60 mm[Hg] [employer] Work Phone: [facility] 01-16-2025 14:15-0400 Systolic blood pressure 120 mm[Hg] [employer] Work Phone: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 induration Eyes: General: No scleral icterus. Conjunctiva/sclera: Conjunctivae normal. Cardiovascular: Rate and Rhythm: Normal rate and regular rhythm. Heart sounds: Normal heart sounds. No murmur heard. Pulmonary: Effort: Pulmonary effort is normal. No respiratory distress. Breath sounds: Normal breath sounds. No wheezing, rhonchi or rales. Skin: General: Skin is warm and dry. Neurological: General: No focal deficit present. Mental Status: She is alert and oriented to person, place, and time. Psychiatric: Mood and Affect: Mood normal. Behavior: Behavior normal. Assessment/Plan Diagnoses and all orders for this visit: Cellulitis, face - cephalexin (Keflex) 500 MG capsule; Take 1 capsule (500 mg) by mouth in the morning and 1 capsule (500 mg) before bedtime. Do all this for 7 days. - fluconazole 150 mg tablets, 1 tablet by month, second dose three days later Continue to clean the area with warm salt water a few times a day. Start Keflex as prescribed. Reviewed dosing. Encouraged probiotic while on antibiotic. She is to contact the office if does not improve. Tylenol prn for pain. No drainage available for swab at this time. Diflucan given to use if needed for yeast infection, pt does have h/o yeast infection following antibiotic use. Follow up if symptoms worsen or fail to improve. documented in this encounter [facility] 11-13-2024 History of Presen t illness Narrative Reason for Appointment: Patient ID: Anabel Jang is a 28 y.o. female who presents for Pre-op Visit Patient presents today for Pre Op appointment. Patient is scheduled to undergo Episiotomy Repair on 12/08/[address] Smiley at [facility]. MEDICATIONS Current Outpatient Medications Medication Instructions albuterol (ProAir RespiClick) 90 mcg/act breath-activated inhaler 1 puff, Inhalation, Every 4 hours PRN ALPRAZolam (XANAX) 0.5 mg, Oral, 2 times daily PRN ARIPiprazole (ABILIFY) 10 mg, Oral, Daily ergocalciferol (VITAMIN D-2) 1.25 mg, Oral, Weekly escitalopram (LEXAPRO) 20 mg, Oral, Every 24 hours Utkiqerdafb-Fohevybdl-Nxlfyj (Trelegy Ellipta) 100-62.5-25 MCG/ACT aerosol powder 1 puff, Inhalation, Daily ibuprofen (IBU) 800 mg, Every 8 hours PRN pregabalin (LYRICA) 100 mg, Oral, 2 times daily valACYclovir (VALTREX) 1,000 mg, Oral, 2 times daily ALLERGIES Allergies Allergen Reactions Alprazolam Itching Basil Oil Other Reaction(s): Numbness Buspirone Unknown Fluoxetine Hydroxyzine Unknown Other Reaction(s): black out Bisacodyl Rash Codeine Rash Methylprednisolone Rash Metronidazole Rash PROBLEMS Active Ambulatory Problems Diagnosis Date Noted Acute asthma ([facility]) 01/19/2023 Chronic tonsillitis 01/19/2023 Smoker 01/19/2023 Depression ([facility]) 01/19/2023 Deviated nasal septum 01/19/2023 Endometriosis 01/19/2023 Chronic neck pain 01/19/2023 Fibromyalgia 01/19/2023 Generalized anxiety disorder with panic attacks ([facility]) 01/19/2023 Herpes simplex of female genitalia 01/19/2023 History of hysterectomy 01/19/2023 Hypothyroidism ([facility]) 01/19/2023 Irregular periods 01/19/2023 Irritable bowel syndrome 01/19/2023 Bipolar disorder, in full remission, most recent episode manic ([facility]) 01/19/2023 Manic episode, unspecified 01/19/2023 Excessive and frequent menstruation 01/19/2023 Menorrhagia 01/19/2023 Hypertrophy of nasal turbinates 01/19/2023 Nasal obstruction 01/19/2023 Urinary tract infection without hematuria 01/19/2023 PTSD (post-traumatic stress disorder) ([facility]) 01/20/2023 Abdominal pain 01/18/2024 Bipolar II disorder ([facility]) 10/18/2020 Diarrhea 01/18/2024 Family history of Crohn's disease 01/18/2024 Gastritis 01/18/2024 Nausea & vomiting 01/18/2024 Sprain of right shoulder 01/18/2024 Weight loss 01/18/2024 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 Grief counseling 09/13/2024 Allergic reaction 10/09/2024 History of non-suicidal self-harm 10/10/2024 Resolved Ambulatory Problems Diagnosis Date Noted No Resolved Ambulatory Problems Past Medical History: Diagnosis Date Acute pelvic pain, female Anxiety Asthma COVID-2019 Current smoker Disease of thyroid gland ([facility]) DNS (deviated nasal septum) Generalized anxiety disorder ([facility]) Herpes genitalia Hypertrophy of both inferior nasal turbinates Irregular menstruation Postop check Psoriasis Rhinorrhea Screen for STD (sexually transmitted disease) Stomach problems Tonsil stone Well woman exam HISTORY PAST MEDICAL HISTORY SOCIAL HISTORY Past Medical History: Diagnosis Date Acute pelvic pain, female Anxiety Asthma Chronic neck pain COVID-19 2019 Current smoker Disease of thyroid gland (CMS/HCC) DNS (deviated nasal septum) Fibromyalgia Generalized anxiety disorder ([facility]) Herpes genitalia Hypertrophy of both inferior nasal turbinates Hypothyroidism (CMS/[facility]) Irregular menstruation Menorrhagia Nasal obstruction Postop check Psoriasis scalp Rhinorrhea Screen for STD (sexually transmitted disease) Stomach problems Tonsil stone Well woman exam Social History Tobacco Use Smoking status: Every Day Current packs/day: 0.00 Types: Cigarettes Last attempt to quit: 12/30/2022 Years since quittin.8 Smokeless tobacco: Current Tobacco comments: 6-10 cigs/day Vaping Use Vaping status: Every Day Substance Use Topics Alcohol use: Yes Alcohol/week: 2.0 standard drinks of alcohol Types: 2 Standard drinks or equivalent per week Comment: Caffeine intake: 2-3 cups per day Drug use: Never FAMILY HISTORY Family History Problem Relation Name Age of Onset Diabetes Mother Marhelena Cervical cancer Mother Marhelena Heart disease Father Mental illness Father Down syndrome Brother Mental illness Maternal Grandmother Dilia Diabetes Maternal Grandmother Dilia SURGICAL HISTORY Past Surgical History: Procedure Laterality Date CHOLECYSTECTOMY CYST REMOVAL 2009 x2 ENDOMETRIAL ABLATION 02/2022 HYSTERECTOMY 07/27/2022 with cystoscopy OTHER SURGICAL HISTORY r/o LN in axilla OTHER SURGICAL HISTORY birthmark removed from chin PAP SMEAR 04/29/2022 negative SEPTOPLASTY 08/27/2020 BITSMR, r/o CB, Timmis TUBAL LIGATION Bilateral US GUIDED SOFT TISSUE BIOPSY 02/04/2024 Scalp REVIEW OF SYSTEMS Review of Systems: Review of Systems Constitutional: Negative. HENT: Negative. Eyes: Negative. Respiratory: Negative. Cardiovascular: Negative. Gastrointestinal: Negative. Genitourinary: Positive for dyspareunia and vaginal pain. Musculoskeletal: Negative. Skin: Negative. Neurological: Negative. All other systems reviewed and are negative. Hematological: Negative. Endocrine: Negative. Allergic/Immunologic: Negative. OBJECTIVE Objective: Physical Exam Constitutional: Appearance: Normal appearance. She is well-developed. Cardiovascular: Rate and Rhythm: Normal rate and regular rhythm. Pulmonary: Effort: Pulmonary effort is normal. Breath sounds: Normal breath sounds. Abdominal: General: Bowel sounds are normal. There is no distension. Palpations: Abdomen is soft. Tenderness: There is no abdominal tenderness. There is no guarding or rebound. Musculoskeletal: General: No swelling. Normal range of motion. Right lower leg: No edema. Left lower leg: No edema. Neurological: Mental Status: She is alert and oriented to person, place, and time. Skin: General: Skin is warm and dry. Psychiatric: Mood and Affect: Mood normal. Behavior: Behavior normal. Vitals and nursing note reviewed. Exam conducted with a furnace loader present. Vitals: Estimated body mass index is 25.29 kg/m as calculated from the following: Height as of 10/09/24: 5'. Weight as of this encounter: 129 lb 8 oz. BP: 110/70 No LMP recorded. Patient has had a hysterectomy. ASSESSMENT & PLAN ICD-10-CM 1. Pre-op examination Z01.818 2. Vaginal irritation N89.8 3. Vaginal pain R10.2 4. History of episiotomy Z98.890 Pre Op: Patient is doing well but has complaints of vaginal discomfort and pain from previous episiotomy. I have discussed conservative management vs. surgical management with the patient in detail and patient desires surgical management at this time. Patient will undergo Episiotomy Repair on 12/08/2024. Surgical consents were signed, mmc was reviewed, and patient is to proceed to [facility]. Follow Up: Patient is to follow up between 1-2 weeks post operative to assess proper healing and recovery from procedure. Documented by Priyanka Solomon LPN on behalf of: Timmy Smiley DO documented in this encounter [facility] 11-01-2024 History of Presen t illness Narrative Reason for Appointment: Patient ID: Anabel Jang is a 28 y.o. female who presents for vaginal irritation (Pt present today due to having pressure and irritation where she had an episiotomy in the past. Dr. Hernandez preformed the episiotomy. Pt states it hurts to wipe and wear underwear very tender in the region. ) Patient presents today for Acute Visit. and Consult appointment. MEDICATIONS Current Outpatient Medications Medication Instructions albuterol (ProAir RespiClick) 90 mcg/act breath-activated inhaler 1 puff, Inhalation, Every 4 hours PRN ALPRAZolam (XANAX) 0.5 mg, Oral, 2 times daily PRN ARIPiprazole (ABILIFY) 10 mg, Oral, Daily escitalopram (LEXAPRO) 20 mg, Oral, Every 24 hours Bwgsgmvyhbe-Lxoxymvwj-Omrsyc (Trelegy Ellipta) 100-62.5-25 MCG/ACT aerosol powder 1 puff, Inhalation, Daily hydrOXYzine pamoate (VISTARIL) 25 mg, Oral, Every 6 hours PRN ibuprofen (IBU) 800 mg, Every 8 hours PRN pregabalin (LYRICA) 100 mg, Oral, 2 times daily rOPINIRole (REQUIP) 0.25 mg, 3 times daily valACYclovir (VALTREX) 1,000 mg, Oral, 2 times daily ALLERGIES Allergies Allergen Reactions Alprazolam Itching Basil Oil Other Reaction(s): Numbness Buspirone Unknown Fluoxetine Hydroxyzine Unknown Other Reaction(s): black out Bisacodyl Rash Codeine Rash Methylprednisolone Rash Metronidazole Rash PROBLEMS Active Ambulatory Problems Diagnosis Date Noted Acute asthma ([facility]) 01/19/2023 Chronic tonsillitis 01/19/2023 Smoker 01/19/2023 Depression ([facility]) 01/19/2023 Deviated nasal septum 01/19/2023 Endometriosis 01/19/2023 Chronic neck pain 01/19/2023 Fibromyalgia 01/19/2023 Generalized anxiety disorder with panic attacks ([facility]) 01/19/2023 Herpes simplex of female genitalia 01/19/2023 History of hysterectomy 01/19/2023 Hypothyroidism ([facility]) 01/19/2023 Irregular periods 01/19/2023 Irritable bowel syndrome 01/19/2023 Bipolar disorder, in full remission, most recent episode manic ([facility]) 01/19/2023 Manic episode, unspecified ([facility]) 01/19/2023 Excessive and frequent menstruation 01/19/2023 Menorrhagia 01/19/2023 Hypertrophy of nasal turbinates 01/19/2023 Nasal obstruction 01/19/2023 Urinary tract infection without hematuria 01/19/2023 PTSD (post-traumatic stress disorder) ([facility]) 01/20/2023 Abdominal pain 01/18/2024 Bipolar II disorder ([facility]) 10/18/2020 Diarrhea 01/18/2024 Family history of Crohn's disease 01/18/2024 Gastritis 01/18/2024 Nausea & vomiting 01/18/2024 Sprain of right shoulder 01/18/2024 Weight loss 01/18/2024 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 Grief counseling 09/13/2024 Allergic reaction 10/09/2024 History of non-suicidal self-harm 10/10/2024 Resolved Ambulatory Problems Diagnosis Date Noted No Resolved Ambulatory Problems Past Medical History: Diagnosis Date Acute pelvic pain, female Anxiety Asthma (CMS/HCC) COVID-2019 Current smoker Disease of thyroid gland (CMS/HCC) DNS (deviated nasal septum) Generalized anxiety disorder (CMS/HCC) Herpes genitalia Hypertrophy of both inferior nasal turbinates Irregular menstruation Postop check Psoriasis (CMS/HCC) Rhinorrhea Screen for STD (sexually transmitted disease) Stomach problems Tonsil stone Well woman exam HISTORY PAST MEDICAL HISTORY SOCIAL HISTORY Past Medical History: Diagnosis Date Acute pelvic pain, female Anxiety Asthma (CMS/HCC) Chronic neck pain COVID-2019 Current smoker Disease of thyroid gland (CMS/HCC) DNS (deviated nasal septum) Fibromyalgia Generalized anxiety disorder (CMS/HCC) Herpes genitalia Hypertrophy of both inferior nasal turbinates Hypothyroidism (CMS/HCC) Irregular menstruation Menorrhagia Nasal obstruction Postop check Psoriasis (CMS/HCC) scalp Rhinorrhea Screen for STD (sexually transmitted disease) Stomach problems Tonsil stone Well woman exam Social History Tobacco Use Smoking status: Every Day Current packs/day: 0.00 Types: Cigarettes Last attempt to quit: 12/30/2022 Years since quittin.8 Smokeless tobacco: Current Tobacco comments: 6-10 cigs/day Vaping Use Vaping status: Every Day Substance Use Topics Alcohol use: Yes Alcohol/week: 2.0 standard drinks of alcohol Types: 2 Standard drinks or equivalent per week Comment: Caffeine intake: 2-3 cups per day Drug use: Never FAMILY HISTORY Family History Problem Relation Name Age of Onset Diabetes Mother Mardel Cervical cancer Mother Mardel Heart disease Father Mental illness Father Down syndrome Brother Mental illness Maternal Grandmother Dilia Diabetes Maternal Grandmother Dilia SURGICAL HISTORY Past Surgical History: Procedure Laterality Date CHOLECYSTECTOMY CYST REMOVAL 2009 x2 ENDOMETRIAL ABLATION 02/2022 HYSTERECTOMY 07/27/2022 with cystoscopy OTHER SURGICAL HISTORY r/o LN in axilla OTHER SURGICAL HISTORY birthmark removed from chin PAP SMEAR 04/29/2022 negative SEPTOPLASTY 08/27/2020 BITSMR, r/o CB, Timmis TUBAL LIGATION Bilateral US GUIDED SOFT TISSUE BIOPSY 02/04/2024 Scalp REVIEW OF SYSTEMS Review of Systems: Review of Systems Constitutional: Negative. HENT: Negative. Eyes: Negative. Respiratory: Negative. Cardiovascular: Negative. Gastrointestinal: Negative. Genitourinary: Negative. Musculoskeletal: Negative. Skin: Negative. Neurological: Negative. All other systems reviewed and are negative. Hematological: Negative. Endocrine: Negative. Allergic/Immunologic: Negative. OBJECTIVE Objective: Physical Exam Constitutional: Appearance: Normal appearance. She is well-developed. Genitourinary: Vulva normal. Genitourinary Comments: Episiotomy site repair Vaginal cuff intact. Cervix is absent. Uterus is absent. Cardiovascular: Rate and Rhythm: Normal rate and regular rhythm. Pulmonary: Effort: Pulmonary effort is normal. Breath sounds: Normal breath sounds. Abdominal: General: Bowel sounds are normal. There is no distension. Palpations: Abdomen is soft. Tenderness: There is no abdominal tenderness. There is no guarding or rebound. Musculoskeletal: General: No swelling. Normal range of motion. Right lower leg: No edema. Left lower leg: No edema. Neurological: Mental Status: She is alert and oriented to person, place, and time. Skin: General: Skin is warm and dry. Psychiatric: Mood and Affect: Mood normal. Behavior: Behavior normal. Vitals and nursing note reviewed. Exam conducted with a furnace loader present. Vitals: Estimated body mass index is 26.37 kg/m as calculated from the following: Height as of 10/09/24: 5'. Weight as of this encounter: 135 lb. BP: 110/68 No LMP recorded. Patient has had a hysterectomy. ASSESSMENT & PLAN ICD-10-CM 1. Vaginal irritation N89.8 POCT urinalysis dipstick manually resulted 2. Vaginal pain R10.2 POCT urinalysis dipstick manually resulted 3. H/O: hysterectomy Z90.710 4. History of episiotomy Z98.890 Pt has pain at episiotomy site, pt to be taken to surgery to repair epis site. Pt very tender on exam. Pt to be scheduled for reconstruction of episiotomy site. Documented by Minoo Andino LPN on behalf of: Timmy Smiley DO documented in this encounter [facility] 10-16-2024 Telephone encount er Note She has been feeling tired, and over all just run down. [facility] 10-16-2024 Miscellaneous Notes Formattin g of this note might be different from the original. She has been feeling tired, and over all just run down. Patient called asking for labs to be done on her Iron, vitamin D and Vitamin B. And any other labs that need to be done. documented in this encounter [facility] 10-16-2024 Telephone encount er Note Patient called asking for labs to be done on her Iron, vitamin D and Vitamin B. And any other labs that need to be done. [facility] 10-09-2024 History of Presen t illness Narrative Associated Problem(s): Manic episode, unspecified (CMS/HCC) Counseling appointment today Has some PTSD Associated Problem(s): Allergic reaction I discussed with patient that while on prednisone, do not take any NSAIDs like Ibuprofen, Naprosyn, Alleve or motrin. Watch for any side effects like abdominal pain and nausea. Take the prednisone with food or milk. Prednisone may increase appetite. While on prednisone, watch for any sugar elevations. Images from the original note were not included. Attached media from the original note were not included. Subjective Patient ID: Anabel Jang is a 28 y.o. female who presents for Anxiety. Pt had gotten a tattoo on her throat over a week ago , feels tight and hurts, itchy tried using a and d ointment it aguero her very bad , has taken benadryl help the itching some but did not help with the hives Pt is not taking the ativan not helping her , she stated she would like to try different medication to help with her counseling sessions Anxiety Presents for follow-up visit. Symptoms include nervous/anxious behavior, panic and shortness of breath. Symptoms occur occasionally. The severity of symptoms is mild. Current Outpatient Medications on File Prior to Visit Medication Sig Dispense Refill albuterol (ProAir RespiClick) 90 mcg/act breath-activated inhaler Inhale 1 puff every 4 (four) hours if needed for wheezing or shortness of breath 1 each 3 escitalopram (Lexapro) 20 MG tablet Take 1 tablet (20 mg) by mouth 1 (one) time each day at the same time 90 tablet 3 Fbcoglzsryg-Iuqzagoeo-Tumjcs (Trelegy Ellipta) 100-62.5-25 MCG/ACT aerosol powder Inhale 1 puff Daily 60 each 5 hydrOXYzine pamoate (Vistaril) 25 MG capsule Take 1 capsule (25 mg) by mouth every 6 (six) hours if needed for itching for up to 10 days 30 capsule 0 ibuprofen (IBU) 800 MG tablet Take 800 mg by mouth every 8 (eight) hours if needed for mild pain or moderate pain. pregabalin (Lyrica) 100 MG capsule Take 1 capsule (100 mg) by mouth in the morning and 1 capsule (100 mg) before bedtime. 60 capsule 2 rOPINIRole (Requip) 0.25 MG tablet Take 0.25 mg by mouth in the morning and 0.25 mg in the evening and 0.25 mg before bedtime. valACYclovir (Valtrex) 1 g tablet Take 1 tablet (1,000 mg) by mouth in the morning and 1 tablet (1,000 mg) before bedtime. 14 tablet 5 [DISCONTINUED] ARIPiprazole (Abilify) 5 MG tablet TAKE 1 TABLET(5 MG) BY MOUTH IN THE MORNING 30 tablet 3 [DISCONTINUED] eszopiclone (Lunesta) 2 MG tablet Take 1 tablet (2 mg) by mouth as needed at bedtime for sleep Take immediately before bedtime 30 tablet 2 [DISCONTINUED] LORazepam (Ativan) 0.5 MG tablet Take 1 tablet (0.5 mg) by mouth in the morning and 1 tablet (0.5 mg) before bedtime. 60 tablet 2 No current facility-administered medications on file prior [...] Last attempt to quit: 12/30/2022 Years since quittin.7 Smokeless tobacco: Current Tobacco comments: 6-10 cigs/day [...] Date Acute pelvic pain, female Anxiety Asthma (CMS/HCC) Chronic neck pain [id number] Current smoker Disease of thyroid gland (CMS/HCC) DNS (deviated nasal septum) Fibromyalgia Generalized anxiety disorder (CMS/HCC) Herpes genitalia Hypertrophy of both inferior nasal turbinates Hypothyroidism (CMS/HCC) Irregular menstruation Menorrhagia Nasal obstruction Postop check Psoriasis (CMS/HCC) scalp Rhinorrhea Screen for STD (sexually transmitted [...] TISSUE BIOPSY 02/04/2024 Scalp Visit Vitals BP 98/52 Pulse 73 Ht 5' Wt 137 lb SpO2 99% BMI 26.76 kg/m OB Status Hysterectomy Smoking Status Every Day BSA 1.62 m Review of Systems Respiratory: Positive for shortness of breath. Skin: Positive for rash. Psychiatric/Behavioral: The patient is nervous/anxious. Objective Physical Exam Constitutional: Appearance: Normal appearance. Neurological: Mental Status: She is alert. Psychiatric: Mood and Affect: Mood normal. Behavior: Behavior normal. Thought Content: Thought content normal. Assessment/Plan Problem List Items Addressed This Visit Bipolar disorder, in full remission, most recent episode manic ([facility]) Relevant Medications ARIPiprazole (Abilify) 5 MG tablet Manic episode, unspecified ([facility]) Counseling appointment today Has some PTSD Relevant Medications ARIPiprazole (Abilify) 5 MG tablet Bipolar II disorder (CMS/[facility]) Relevant Medications ARIPiprazole (Abilify) 5 MG tablet Allergic reaction - Primary I discussed with patient that while on prednisone, do not take any NSAIDs like Ibuprofen, Naprosyn, Alleve or motrin. Watch for any side effects like abdominal pain and nausea. Take the prednisone with food or milk. Prednisone may increase appetite. While on prednisone, watch for any sugar elevations. Relevant Medications predniSONE (Deltasone) 10 MG tablet No follow-ups on file. documented in this encounter [facility] 09-23-2024 Telephone encount er Note Omar sent. [facility] 09-23-2024 Miscellaneous Notes Formattin g of this note might be different from the original. Omar sent. documented in this encounter [facility] 08-31-2024 History of Presen t illness Narrative Images from the original note were not included. [facility] Med Refill Additional comments: Lexapro, Valcyclovir Last edited by DENISSE Romero on 08/31/2024 11:23 AM. Subjective Patient ID: Anabel Jang is a 28 y.o. female who presents for sleeping issues. Anabel is present today for evaluation of sleeping issues. Admits hard time falling asleep and staying asleep, fatigue, hard time shutting her mind off. She has been having a hard time sleeping since her brother in November, 6 days before her birthday, and his face after he is stuck in her mind (she is crying telling me this). She would like to get into counseling to deal with the of her brother. She does not feel depressed just sad. She has tried Melatonin 50 mg, Benadryl, Sleep aid. Sleeping 2-4 hours. OTC medications help her fall asleep, but can't stay asleep. Has dreams about her brother. States she is told by people that she shouldn't still be sad about her brother, then she feels like something must be wrong with her. States she and her brother were really close. Has been on Seroquel and Trazodone in the past. With the Seroquel she felt like her brain was broke the whole next day. Trazodone didn't help. Has good support system with her friends. Current Outpatient Medications on File Prior to Visit Medication Sig Dispense Refill albuterol (ProAir RespiClick) 90 mcg/act breath-activated inhaler Inhale 1 puff every 4 (four) hours if needed for wheezing or shortness of breath 1 each 3 ARIPiprazole (Abilify) 5 MG tablet TAKE 1 TABLET(5 MG) BY MOUTH IN THE MORNING 30 tablet 3 escitalopram (Lexapro) 20 MG tablet Take 1 tablet (20 mg) by mouth 1 (one) time each day at the same time 100 tablet 2 Nmalzcuzcdi-Brcnvqylj-Bijmpa (Trelegy Ellipta) 100-62.5-25 MCG/ACT aerosol powder Inhale 1 puff Daily 1 each 3 ibuprofen (IBU) 800 MG tablet Take 800 mg by mouth every 8 (eight) hours if needed for mild pain or moderate pain. LORazepam (Ativan) 0.5 MG tablet Take 1 tablet (0.5 mg) by mouth in the morning and 1 tablet (0.5 mg) before bedtime. 60 tablet 2 pregabalin (Lyrica) 100 MG capsule Take 1 capsule (100 mg) by mouth in the morning and 1 capsule (100 mg) before bedtime. 60 capsule 2 valACYclovir (Valtrex) 1 g tablet TAKE 1 TABLET BY MOUTH EVERY MORNING AND 1 TABLET EVERY NIGHT AT BEDTIME FOR 7 DAYS 14 tablet 0 [DISCONTINUED] rOPINIRole (Requip) 0.25 MG tablet Take 1 tablet (0.25 mg) by mouth in the morning and 1 tablet (0.25 mg) in the evening and 1 tablet (0.25 mg) before bedtime. 90 tablet 11 No current facility-administered medications on file prior [...] Last attempt to quit: 12/30/2022 Years since quittin.6 Smokeless tobacco: Current Tobacco comments: 6-10 cigs/day [...] Date Acute pelvic pain, female Anxiety Asthma (CMS/HCC) Chronic neck pain COVID-2019 Current smoker Disease of thyroid gland (CMS/HCC) DNS (deviated nasal septum) Fibromyalgia Generalized anxiety disorder (CMS/HCC) Herpes genitalia Hypertrophy of both inferior nasal turbinates Hypothyroidism (CMS/HCC) Irregular menstruation Menorrhagia Nasal obstruction Postop check Psoriasis (CMS/HCC) scalp Rhinorrhea Screen for STD (sexually transmitted [...] TISSUE BIOPSY 02/04/2024 Scalp Visit Vitals BP 98/62 Pulse 92 Resp 16 Ht 5' Wt 136 lb SpO2 97% BMI 26.56 kg/m OB Status Hysterectomy Smoking Status Every Day BSA 1.62 m Review of Systems Constitutional: Negative for chills, fatigue and fever. Respiratory: Negative for cough, shortness of breath and wheezing. Cardiovascular: Negative for chest pain, palpitations and leg swelling. Gastrointestinal: Negative for abdominal pain, constipation, diarrhea, nausea and vomiting. Skin: Negative for rash. Psychiatric/Behavioral: Positive for sleep disturbance. Negative for dysphoric mood and suicidal ideas. Crying, grief Objective Physical Exam Constitutional: General: She is not in acute distress. Appearance: Normal appearance. She is well-developed. HENT: Head: Normocephalic and atraumatic. Eyes: General: No scleral icterus. Conjunctiva/sclera: Conjunctivae normal. Cardiovascular: Rate and Rhythm: Normal rate and regular rhythm. Heart sounds: Normal heart sounds. No murmur heard. Pulmonary: Effort: Pulmonary effort is normal. No respiratory distress. Breath sounds: Normal breath sounds. No wheezing, rhonchi or rales. Skin: General: Skin is warm and dry. Neurological: General: No focal deficit present. Mental Status: She is alert and oriented to person, place, and time. Psychiatric: Attention and Perception: Attention normal. Mood and Affect: Affect is tearful. Speech: Speech normal. Behavior: Behavior normal. Thought Content: Thought content normal. Thought content does not include suicidal ideation. Thought content does not include suicidal plan. Cognition and Memory: Cognition normal. Judgment: Judgment normal. Comments: Did smile a few times during visit. Assessment/Plan Diagnoses and all orders for this visit: Insomnia due to other mental disorder - eszopiclone (Lunesta) 2 MG tablet; Take 1 tablet (2 mg) by mouth as needed at bedtime for sleep Take immediately before bedtime Pt has tried and failed OTC treatments. She is agreeable to trying Lunesta. She is to take it right before going to bed, under no circumstances is she to drive after taking Lunesta. Will recheck in 3 months or she can call the office sooner with any concerns. H/O cold sores - valACYclovir (Valtrex) 1 g tablet; Take 1 tablet (1,000 mg) by mouth in the morning and 1 tablet (1,000 mg) before bedtime. Refill provided on the above. She can continue to use it as needed for cold sores. Generalized anxiety disorder (CMS/HCC) - escitalopram (Lexapro) 20 MG tablet; Take 1 tablet (20 mg) by mouth 1 (one) time each day at the same time [facility] report generated and reviewed. Lorazepam was filled for 30 day supply on 08/26/2024. Refill provided on [employer] at this time. Will continue to monitor. Grief reaction (CMS/HCC) - Ambulatory referral to Behavioral Health; Future Provided pt with referral to Counseling. She does have a support system and denies any thoughts or plans of suicide. Her anxiety and depression are stable, it is the crying and grief reaction that she has been having a hard time dealing with since her brother . Advised pt that grief is a process and it is ok to still miss her brother. I believe patient will benefit greatly from counseling. Follow up in about 3 months (around 11/29/2024) for Medication Follow Up. documented in this encounter [facility] 08-16-2024 Telephone encount er Note Pt called and stated for the past three days she has not been able to sleep due to having restless legs and arms, she is wanting to find out if there is something you could send in for her to sleep. She has tried otc sleep aids and nothing is helping her She does have an appt on 08/21 and would like meds just until she sees you [facility] 08-16-2024 Miscellaneous Notes Formattin g of this note might be different from the original. Pt called and stated for the past three days she has not been able to sleep due to having restless legs and arms, she is wanting to find out if there is something you could send in for her to sleep. She has tried otc sleep aids and nothing is helping her She does have an appt on 08/21 and would like meds just until she sees you documented in this encounter [facility] 08-14-2024 History of Presen t illness Narrative Reason for Appointment: Patient ID: Anabel Jang is a 28 y.o. female who presents for Well Women Visit Patient presents today for Annual Exam. MEDICATIONS Current Outpatient Medications Medication Instructions albuterol (ProAir RespiClick) 90 mcg/act breath-activated inhaler 1 puff, Inhalation, Every 4 hours PRN ARIPiprazole (Abilify) 5 MG tablet TAKE 1 TABLET(5 MG) BY MOUTH IN THE MORNING escitalopram (LEXAPRO) 20 mg, Oral, Every 24 hours Xjmztdbcvba-Tskyialjt-Paieot (Trelegy Ellipta) 100-62.5-25 MCG/ACT aerosol powder 1 puff, Inhalation, Daily ibuprofen (IBU) 800 mg, Every 8 hours PRN LORazepam (ATIVAN) 0.5 mg, Oral, 2 times daily pregabalin (LYRICA) 100 mg, Oral, 2 times daily valACYclovir (Valtrex) 1 g tablet TAKE 1 TABLET BY MOUTH EVERY MORNING AND 1 TABLET EVERY NIGHT AT BEDTIME FOR 7 DAYS ALLERGIES Allergies Allergen Reactions Alprazolam Itching Basil Oil Other Reaction(s): Numbness Buspirone Unknown Fluoxetine Hydroxyzine Unknown Other Reaction(s): black out Bisacodyl Rash Codeine Rash Methylprednisolone Rash Metronidazole Rash PROBLEMS Active Ambulatory Problems Diagnosis Date Noted Acute asthma ([facility]) 01/19/2023 Chronic tonsillitis 01/19/2023 Smoker 01/19/2023 Depression ([facility]) 01/19/2023 Deviated nasal septum 01/19/2023 Endometriosis 01/19/2023 Chronic neck pain 01/19/2023 Fibromyalgia 01/19/2023 Generalized anxiety disorder ([facility]) 01/19/2023 Herpes simplex of female genitalia 01/19/2023 History of hysterectomy 01/19/2023 Hypothyroidism ([facility]) 01/19/2023 Irregular periods 01/19/2023 Irritable bowel syndrome 01/19/2023 Bipolar disorder, in full remission, most recent episode manic ([facility]) 01/19/2023 Manic episode, unspecified ([facility]) 01/19/2023 Excessive and frequent menstruation 01/19/2023 Menorrhagia 01/19/2023 Hypertrophy of nasal turbinates 01/19/2023 Nasal obstruction 01/19/2023 Urinary tract infection without hematuria 01/19/2023 Posttraumatic stress disorder ([facility]) 01/20/2023 Abdominal pain 01/18/2024 Bipolar II disorder (CMS/HCC) 10/18/2020 Diarrhea 01/18/2024 Family history of Crohn's disease 01/18/2024 Gastritis 01/18/2024 Nausea & vomiting 01/18/2024 Sprain of right shoulder 01/18/2024 Weight loss 01/18/2024 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 Resolved Ambulatory Problems Diagnosis Date Noted No Resolved Ambulatory Problems Past Medical History: Diagnosis Date Acute pelvic pain, female Anxiety Asthma (CMS/HCC) COVID-2019 Current smoker Disease of thyroid gland (CMS/HCC) DNS (deviated nasal septum) Herpes genitalia Hypertrophy of both inferior nasal turbinates Irregular menstruation Postop check Psoriasis (CMS/HCC) Rhinorrhea Screen for STD (sexually transmitted disease) Stomach problems Tonsil stone Well woman exam HISTORY PAST MEDICAL HISTORY SOCIAL HISTORY Past Medical History: Diagnosis Date Acute pelvic pain, female Anxiety Asthma (CMS/HCC) Chronic neck pain COVID2019 Current smoker Disease of thyroid gland (CMS/HCC) DNS (deviated nasal septum) Fibromyalgia Generalized anxiety disorder (CMS/HCC) Herpes genitalia Hypertrophy of both inferior nasal turbinates Hypothyroidism (CMS/HCC) Irregular menstruation Menorrhagia Nasal obstruction Postop check Psoriasis (CMS/HCC) scalp Rhinorrhea Screen for STD (sexually transmitted disease) Stomach problems Tonsil stone Well woman exam Social History Tobacco Use Smoking status: Every Day Current packs/day: 0.00 Types: Cigarettes Last attempt to quit: 12/30/2022 Years since quittin.6 Smokeless tobacco: Current Tobacco comments: 6-10 cigs/day Vaping Use Vaping status: Every Day Substance Use Topics Alcohol use: Yes Alcohol/week: 2.0 standard drinks of alcohol Types: 2 Standard drinks or equivalent per week Comment: Caffeine intake: 2-3 cups per day Drug use: Never FAMILY HISTORY Family History Problem Relation Name Age of Onset Diabetes Mother Mardel Cervical cancer Mother Mardel Heart disease Father Mental illness Father Down syndrome Brother Mental illness Maternal Grandmother Dilia Diabetes Maternal Grandmother Dilia SURGICAL HISTORY Past Surgical History: Procedure Laterality Date CHOLECYSTECTOMY CYST REMOVAL 2009 x2 ENDOMETRIAL ABLATION 02/2022 HYSTERECTOMY 07/27/2022 with cystoscopy OTHER SURGICAL HISTORY r/o LN in axilla OTHER SURGICAL HISTORY birthmark removed from chin PAP SMEAR 04/29/2022 negative SEPTOPLASTY 08/27/2020 BITSMR, r/o CB, Timmis TUBAL LIGATION Bilateral US GUIDED SOFT TISSUE BIOPSY 02/04/2024 Scalp REVIEW OF SYSTEMS Review of Systems: Review of Systems Genitourinary: Positive for pelvic pain. All other systems reviewed and are negative. OBJECTIVE Objective: Physical Exam Constitutional: Appearance: Normal appearance. She is well-developed. Genitourinary: Vulva normal. Vaginal cuff intact. Cervix is absent. Uterus is absent. Cardiovascular: Rate and Rhythm: Normal rate and regular rhythm. Abdominal: General: Bowel sounds are normal. There is no distension. Palpations: Abdomen is soft. Tenderness: There is no abdominal tenderness. There is no guarding or rebound. Musculoskeletal: General: No swelling. Normal range of motion. Right lower leg: No edema. Left lower leg: No edema. Neurological: Mental Status: She is alert and oriented to person, place, and time. Skin: General: Skin is warm and dry. Psychiatric: Mood and Affect: Mood normal. Behavior: Behavior normal. Vitals and nursing note reviewed. Exam conducted with a furnace loader present. Vitals: Estimated body mass index is 28.01 kg/m as calculated from the following: Height as of 05/22/24: 5'. Weight as of this encounter: 143 lb 6.4 oz. BP: 100/58 No LMP recorded. Patient has had a hysterectomy. ASSESSMENT & PLAN ICD-10-CM 1. Well woman exam with routine gynecological exam Z01.419 Pap Smear Annual Exam: Patient presents today for an annual exam. Patient states she is doing well and has complaints of pelvic pain and painful intercourse. Patient stated that pain with intercourse has not improved since hysterectomy. Pap was obtained without difficulty. Patient voiced that Specialist stated that patient will need to complete pelvic floor therapy prior to any surgical procedure for scar tissue. Follow Up: Patient is to return in one year for annual unless needed otherwise. Documented by Priyanka Solomon LPN on behalf of: Timmy Smiley DO documented in this encounter [facility] 05-22-2024 History of Presen t illness Narrative Associated Problem(s): Smoker Discussed smoking cessation with the patient. Encouraged patient to try to cut back gradually and soon quit smoking. Discussed ways to quit smoking including gum, patches, medication, and gradually reducing the number of cigarettes smoked daily. 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 Patient voiced understanding. Benefits of cessation, both health and financial, were reviewed. Subjective Patient ID: Anabel Jang is a 28 y.o. female who presents for Anxiety. Pt states she was diagnosed with asthma back when she was a teenager, she states if she gets a coughing episode she will need her inhaler pt is wanting a breathing test Pt states when episodes happens she will have sob , cramping in her lung area, lots of saliva Pt states her meds are doing good for her , no concerns Anxiety Presents for follow-up visit. Symptoms include nervous/anxious behavior, panic and shortness of breath. Symptoms occur occasionally. The severity of symptoms is mild. Current Outpatient Medications on File Prior to Visit Medication Sig Dispense Refill ARIPiprazole (Abilify) 5 MG tablet Take 1 tablet (5 mg) by mouth in the morning. escitalopram (Lexapro) 20 MG tablet Take 1 tablet by mouth 1 (one) time each day at the same time. ibuprofen (IBU) 800 MG tablet Take 800 mg by mouth every 8 (eight) hours if needed for mild pain or moderate pain. LORazepam (Ativan) 0.5 MG tablet Take 1 tablet (0.5 mg) by mouth in the morning and 1 tablet (0.5 mg) before bedtime. 60 tablet 2 pregabalin (Lyrica) 100 MG capsule Take 1 capsule (100 mg) by mouth in the morning and 1 capsule (100 mg) before bedtime. 60 capsule 2 [DISCONTINUED] albuterol (ProAir RespiClick) 90 mcg/act breath-activated inhaler Inhale 1 puff every 4 (four) hours if needed for wheezing or shortness of breath. No current facility-administered medications on file prior [...] Last attempt to quit: 12/30/2022 Years since quittin.3 Smokeless tobacco: Current Tobacco comments: 6-10 cigs/day Vaping Use Vaping status: Every Day Substance Use Topics Alcohol use: Yes Alcohol/week: 2.0 standard drinks of alcohol Types: 2 Standard drinks or equivalent per week Comment: Caffeine intake: 2-3 cups per day Drug use: Never Family History Problem Relation Name Age of Onset Diabetes Mother Mardel Cervical cancer Mother Mardel Heart disease Father Mental illness Father Down syndrome Brother Mental illness Maternal Grandmother Dilia Diabetes Maternal Grandmother Dilia Past Medical History: Diagnosis Date Acute pelvic pain, female Anxiety Asthma (CMS/HCC) Chronic neck pain COVID2019 Current smoker Disease of thyroid gland (CMS/HCC) DNS (deviated nasal septum) Fibromyalgia Generalized anxiety disorder (CMS/HCC) Herpes genitalia Hypertrophy of both inferior nasal turbinates Hypothyroidism (CMS/HCC) Irregular menstruation Menorrhagia Nasal obstruction Postop check Psoriasis (CMS/HCC) scalp Rhinorrhea Screen for STD (sexually transmitted [...] TISSUE BIOPSY 02/04/2024 Scalp Visit Vitals BP 92/68 Pulse 81 Ht 5' Wt 144 lb SpO2 98% BMI 28.12 kg/m OB Status Hysterectomy Smoking Status Every Day BSA 1.66 m Review of Systems Respiratory: Positive for cough and shortness of breath. Negative for wheezing. Psychiatric/Behavioral: The patient is nervous/anxious. Objective Physical Exam Constitutional: General: She is not in acute distress. Appearance: Normal appearance. HENT: Head: Normocephalic. Cardiovascular: Rate and Rhythm: Normal rate and regular rhythm. Pulmonary: Effort: Pulmonary effort is normal. Prolonged expiration present. No respiratory distress. Breath sounds: Normal breath sounds. Neurological: General: No focal deficit present. Mental Status: She is alert and oriented to person, place, and time. Psychiatric: Mood and Affect: Mood normal. Assessment/Plan Problem List Items Addressed This Visit Acute asthma ([facility]) - Primary Relevant Medications albuterol (ProAir RespiClick) 90 mcg/act breath-activated inhaler Fxggjlrzdxz-Ntovfdhfw-Ipdmol (Trelegy Ellipta) 100-62.5-25 MCG/ACT aerosol powder Smoker Discussed smoking cessation with the patient. Encouraged patient to try to cut back gradually and soon quit smoking. Discussed ways to quit smoking including gum, patches, medication, and gradually reducing the number of cigarettes smoked daily. Discussed potential health risks of mcc smoking. Patient voiced understanding. Benefits of cessation, both health and financial, were reviewed. No follow-ups on file. documented in this encounter [facility] 09-06-2023 History of Presen t illness Narrative Reason for Appointment: Patient ID: Misty Elliott is a 27 y.o. female who presents for Wound Check Patient presents today for Consult appointment. Current Medications: has a current medication list which includes the following prescription(s): aripiprazole, lamotrigine, prazosin, abilify, proair respiclick, cephalexin, escitalopram, ibuprofen, and pregabalin. Medical History: Active Ambulatory Problems Diagnosis Date Noted Acute asthma ([facility]) 01/19/2023 Chronic tonsillitis 01/19/2023 Current smoker 01/19/2023 Depression ([facility]) 01/19/2023 Deviated nasal septum 01/19/2023 Endometriosis 01/19/2023 Chronic neck pain 01/19/2023 Fibromyalgia 01/19/2023 Generalized anxiety disorder ([facility]) 01/19/2023 Herpes simplex of female genitalia 01/19/2023 History of hysterectomy 01/19/2023 Hypothyroidism ([facility]) 01/19/2023 Irregular periods 01/19/2023 Irritable bowel syndrome 01/19/2023 Manic bipolar I disorder in full remission ([facility]) 01/19/2023 Manic disorder, single episode ([facility]) 01/19/2023 Excessive and frequent menstruation 01/19/2023 Menorrhagia 01/19/2023 Hypertrophy of nasal turbinates 01/19/2023 Nasal obstruction 01/19/2023 Urinary tract infection without hematuria 01/19/2023 Posttraumatic stress disorder ([facility]) 01/20/2023 Resolved Ambulatory Problems Diagnosis Date Noted No Resolved Ambulatory Problems Past Medical History: Diagnosis Date Acute pelvic pain, female Anxiety Asthma (CMS/HCC) COVID-19 2019 Disease of thyroid gland ([facility]) DNS (deviated nasal septum) Herpes genitalia Hypertrophy of both inferior nasal turbinates Irregular menstruation Postop check Psoriasis ([facility]) Rhinorrhea Screen for STD (sexually transmitted disease) Stomach problems Tonsil stone Well woman exam Family History Problem Relation Name Age of Onset Diabetes Mother Cervical cancer Mother Heart disease Father Mental illness Father Down syndrome Brother Mental illness Maternal Grandmother Diabetes Maternal Grandmother Social History Tobacco Use Smoking status: Every Day Packs/day: .5 Types: Cigarettes Last attempt to quit: 12/30/2022 Years since quittin.6 Smokeless tobacco: Current Tobacco comments: 6-10 cigs/day Vaping Use Vaping Use: Every day Substance Use Topics Alcohol use: Yes Alcohol/week: 2.0 standard drinks of alcohol Types: 2 Standard drinks or equivalent per week Comment: Caffeine intake: 2-3 cups per day Drug use: Never Past Surgical History: Procedure Laterality Date CHOLECYSTECTOMY CYST REMOVAL 2009 x2 ENDOMETRIAL ABLATION 02/2022 HYSTERECTOMY 07/27/2022 with cystoscopy OTHER SURGICAL HISTORY r/o LN in axilla OTHER SURGICAL HISTORY birthmark removed from chin PAP SMEAR 04/29/2022 negative SEPTOPLASTY 08/27/2020 BITSMR, r/o CB, Timmis TUBAL LIGATION Bilateral Allergies Allergen Reactions Alprazolam Itching Basil Oil Other Reaction(s): Numbness Buspirone Unknown Hydroxyzine Unknown Other Reaction(s): black out Bisacodyl Rash Methylprednisolone Rash Metronidazole Rash Review of Systems: Review of Systems All other systems reviewed and are negative. Objective Physical Exam Constitutional: Appearance: Normal appearance. She is well-developed. Cardiovascular: Rate and Rhythm: Normal rate and regular rhythm. Pulmonary: Effort: Pulmonary effort is normal. Breath sounds: Normal breath sounds. Abdominal: General: Bowel sounds are normal. There is no distension. Palpations: Abdomen is soft. Tenderness: There is no abdominal tenderness. There is no guarding or rebound. Musculoskeletal: General: No swelling. Normal range of motion. Right lower leg: No edema. Left lower leg: No edema. Neurological: Mental Status: She is alert and oriented to person, place, and time. Skin: General: Skin is warm and dry. Psychiatric: Mood and Affect: Mood normal. Behavior: Behavior normal. Vitals and nursing note reviewed. Exam conducted with a furnace loader present. Vitals: Estimated body mass index is 27.54 kg/m as calculated from the following: Height as of 07/06/23: 5'. Weight as of this encounter: 141 lb. BP: 120/70 No LMP recorded. Patient has had a hysterectomy. Assessment/Plan Encounter Diagnoses Name Primary? Incisional irritation, initial encounter S/P laparoscopic surgery Wound infection following procedure Patient presents today for follow up wound check. Cleaned area will prescribe Keflex. Patient also request Diflucan to help is she possibly gets a yeast infection. Patient to RTC for annual and Prn when needed. Documented by Priyanka Solomon LPN on behalf of: Timmy Smiley DO documented in this encounter [facility] 07-27-2022 Note OPERATIVE NOTE OPERATION DATE: 07/27/2022 PROCEDURE: vNOTES hysterectomy with cystoscopy. PREOPERATIVE DIAGNOSIS: 1. Pelvic pain. 2. Endometriosis. 3. Intermittent bleeding. 4. Dyspareunia. 5. Dysmenorrhea. POSTOPERATIVE DIAGNOSIS: 1. Pelvic pain. 2. Endometriosis. 3. Intermittent bleeding. 4. Dyspareunia. 5. Dysmenorrhea. ANESTHESIA: General. SURGEON: Timmy Smiley D.O. PROFESSIONAL EMPLOYER CONSULTANT: ZEENAT Marc URINE OUTPUT: Yellow and clear. BLOOD LOSS: 25 mL. SPECIMEN: Uterus and cervix. FINDINGS: Normal appearing ovaries, uterus and cervix. PROCEDURE: Patient was brought back to the operating room where she was given general anesthesia. She was placed in the dorsolithotomy position, after being prepped and draped in a sterile fashion. A Gardner catheter was placed. A weighted speculum was placed posterior in the vagina. The cervix was grasped anteriorly and posteriorly with two single tooth tenaculums and placed on traction. A solution of Marcaine, lidocaine and epinephrine and saline was liberally infiltrated into the cervical vaginal junction. The knife was then used to circumscribe the cervical vaginal junction and the posterior cul-de-sac was sharply entered without difficulty. A long weighted duck tail speculum was placed and the peritoneum was tacked to the vaginal epithelium. We then turned our attention to the uterosacral ligaments which were bilaterally cross clamped, transected and suture ligated and then were held with hemostats. Attention was then turned to the anterior compartment, where the cervical vaginal junction was similarly divided, and the bladder was then sharply and bluntly dissected off the cervix and the lower uterine segment, and the anterior cul-de- sac was sharply entered. The vaginal epithelium was tacked to the peritoneum. Lateral attachments of the uterus were secured with Francy clamps and suture ligated. The retractors were then removed and were placed by the path inner ring anteriorly followed by posteriorly. Once the ring was seated, the gel cap was placed and the laparoscopic ports were placed through this cap and the gas was allowed to insufflate the pelvis. A GynLap was placed posteriorly to facilitate mobilization of the bowel, control bleeding. This was later retrieved. The LigaSure device was used to secure the lateral attachments of the uterus on the left side, including the cardinal ligaments and the uterine vasculature. Once the utero-ovarian ligament was reached, we turned our attention to the right side where the LigaSure device was used to fully detach the uterus from the pelvic side wall. The ureters were seen visually; before, during and after the pedicles were created. The ureters were bilaterally in normal locations, peristalsing. Please note that the right and left ovary were already removed and were not visualized. Please note that the LigaSure was used on the patient's left side to fully detach the uterus from the pelvic side wall. The uterus was removed from the field. The GynLap was also removed from the field. The inner ring and gel port caps were removed and the vaginal retractors were replaced. Lateral figure of eight sutures were placed bilaterally, where bleeding occurred, behind the ring, and no further sutures were needed. The colpopexy was then carried out, passing a stitch posteriorly to the vaginal wall, capturing the left uterosacral ligament, going across the peritoneum posteriorly to the right and exiting out the vaginal wall posteriorly. The vaginal cuff was closed in a single running locked stitch using 0 Monocryl, and the uterosacral ligaments were cut. Once the vaginal cuff was fully closed, the uterosacral colpopexy stitch was then tied down tightly, elevating the vaginal cuff to the uterosacral ligaments in a satisfactory manner. The Gardner catheter was removed and the patient was awakened and taken to recovery in excellent condition. Sponge, lap and instruments counts correct x2. [facility] 02-26-2022 Note OPERATIVE NOTE OPERATION DATE: 02/26/2022 PROCEDURE: Bebe endometrial ablation with cystoscopy. PREOPERATIVE DIAGNOSIS: Menorrhagia, dysmenorrhea. POSTOPERATIVE DIAGNOSIS: Menorrhagia, dysmenorrhea. ANESTHESIA: General. SURGEON: Timmy Smiley D.O. PROFESSIONAL EMPLOYER CONSULTANT: None. BLOOD LOSS: 5 mL. URINE OUTPUT: Yellow and clear. PROCEDURE: The patient was taken back to the OR where she was prepped and draped in the normal sterile fashion after being placed in the dorsal lithotomy position, after being placed under general anesthesia without difficulty. A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
[2025-01-28 14:09] LABS: Renin Activity, Plasma 17.193 ng/mL/hr (0.167-5.380)
[2025-01-28 15:09] LABS: Aldosterone LCMS, Serum 32.5 ng/dL (0.0-30.0)
== END 2025-01-23 16:28 | disposition home or self-care (01) ==
LOC: LAB 16:27
PROVIDERS: PCP Family Medicine; Visit Provider Internal Medicine Interventional Cardiology
DX: I10 Essential (primary) hypertension (principal)
CPT/HCPCS: 36415; 82088; 83835; 84244

== ENCOUNTER 2025-02-05 11:41 | Outpatient (OUT) | payer BC, OTHER, SELFPAY ==
--- OUTSIDE RECORDS SUMMARY | 2013-12-28 10:30 | XMS_ITS | Encounter Summary ---
Author Organization [facility] Address [address] [place] [address] Care Team Providers Care Produce Service Team Member Name Role Phone Unavailable Primary Care Provider Unavailabl e Encounter Details Date Type Department Care Team (Late st Contact Info) Description 12/28/2013 10:30 AM EDT Hospital Encounter [facility] E[facility] [address] [place] [address] Tamie Wei MD [address] [place] [address] Social History Tobacco Use Types Packs/Day Years [...]
--- OUTSIDE RECORDS SUMMARY | 2025-02-05 11:44 | XMS_ITS | Encounter Summary ---
Author Organization [facility] Address [address] [place] [address] Care Team Providers Care Dairy Management Specialist Name Role Phone Kimberly Arauz MD Primary Care Provider [phone] Gonzales Still CHARCOAL KILN BURNER Unavailable Unava ilable Encounter Details Date Type Department Care Team (Late st Contact Info) Description 11/20/2024 Abstract [facility] OB [address] [place] [id number] Timmy Smiley, DO [address] [place], [place] [id number] Social History Tobacco Use Types Packs/Day Years [...] Not at all 11/23/2024 1:36 PM EDT Cristal, Emani, LP N Feeling down, depressed, or hopeless Not at all 11/23/2024 1:36 PM EDT Cristal, Emani, LP N Patient Health Questionnaire -2 Score 0 11/23/2024 1:36 PM EDT Cristal, Emani, LP N documented as of this encounter Plan of Treatment Upcoming Encounters Date Type Department Care Team (Late st Contact Info) Description 02/06/2025 8:10 AM EDT Office Visit [facility] [address] [place] [address] Timmy Smiley, DO [address] [place], [place] [id number] 02/07/2025 9:00 AM EDT Telemedicine [facility] [address] [facility] [address] [place] [phone] Gonzales Still LPC 02/15/2025 2:30 PM EDT Office Visit [facility] [address] [place] [address] [place] [address] Kimberly Arauz MD [address] [facility] [address] [place] [address] documented as of this encounter Visit Diagnoses Not on filedocumented in this encounter Care Teams Dairy Management Specialist Relationship Specialty Start Date End Date Kimberly Arauz MD [address] [facility] [address] [place] [address] PCP - General Family Medicine 01/20/23 Gonzales Still LPC Concrete Pavement Installer Advanced Manufacturing Consultant 10/02/24 documented as of this encounter
--- OUTSIDE RECORDS SUMMARY | 2025-02-05 11:44 | XMS_ITS | Encounter Summary ---
Author Organization [employer] Address [id number] [address] [place] [address] Care Team Providers Care Rolling Up Machine Operator Name Role Phone Kimberly Arauz MD Primary Care Provider [phone] Reason for Referral * Diagnostic Imaging (Routine) - Pending Review Specialty Diagnoses / Procedures Referred By Contac t Referred To Contact Radiology Diagnoses Pain Procedures CT angiogram chest [facility] [address] [place] [phone] Phone: tel: fax: Referral ID Status Reason Start Date Expiration Date V isits Requested Visits Authorized [id number] Pending Review 12/04/2024 12/04/2025 1 1 * Diagnostic Imaging (Routine) - Pending Review Specialty Diagnoses / Procedures Referred By Contac t Referred To Contact Radiology Diagnoses Pain Procedures CT brain without contrast [facility] [place] [address] Phone: tel: fax: Referral ID Status Reason Start Date Expiration Date V isits Requested Visits Authorized [id number] Pending Review 12/04/2024 12/04/2025 1 1 * Diagnostic Imaging (Routine) - Pending Review Specialty Diagnoses / Procedures Referred By Contac t Referred To Contact Radiology Diagnoses Pain Procedures CT cervical spine without contrast [facility] [address] [place] [phone] Phone: tel: fax: Referral ID Status Reason Start Date Expiration Date V isits Requested Visits Authorized [id number] Pending Review 12/04/2024 12/04/2025 1 1 * Diagnostic Imaging (Routine) - Pending Review Specialty Diagnoses / Procedures Referred By Contac t Referred To Contact Radiology Diagnoses Pain Procedures CT angiogram abdomen and pelvis [facility] [address] [place] [phone] Phone: tel: fax: Referral ID Status Reason Start Date Expiration Date V isits Requested Visits Authorized [id number] Pending Review 12/04/2024 12/04/2025 1 1 Encounter Details Date Type Department Care Team (Late st Contact Info) Description 12/04/2024 Orders Only [facility] [address] [place] [phone] Transcribe, Orders Support User Pain (Primary Dx) Social History Tobacco Use Types Packs/Day Years Used Date Smoking Tobacco: Every Day Cigarettes Smokeless Tobacco: Never Alcohol Use Standard Drinks/Week Comments Not Currently 0 (1 standard drink = 0.6 oz pur e alcohol) [facility] Utilities Answer Date Recorded In the [...] documented as of this encounter Functional Status documented as of this encounter Plan of Treatment Upcoming Encounters Date Type Department Care Team (Late st Contact Info) Description 02/26/2025 3:30 PM EDT Office Visit [facility] [address] [address] Carole Tyson, DO [address] [facility] [address] [place] [address] documented as of this encounter Goals Goal [...] with the renal veins There is a jtvdb-ez-orhdjlzo amount of fluid and blood in the [...] pulsation artifact along the ascending aorta which [id number] mm There is some haziness or trace [...] 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 is limited by factors including the absence of technicalspecifics of the image, undisclosed clinical information and theunavailability of the original interpretation. Specialists at [facility] that performed the study may have [...] documented as of this encounter Care Teams Rolling Up Machine Operator Relationship Specialty Start Date End Date Kimberly Arauz MD [address] [address] PCP - General Family Medicine 04/01/24 documented as of this encounter
--- OUTSIDE RECORDS SUMMARY | 2025-02-05 11:44 | XMS_ITS | Clinical Summary ---
Author Organization [facility] Address [address] [place] [address] Care Team Providers Care Humane Agent Name Role Phone Kimberly Arauz MD Primary Care Provider [phone] Allergies Active Allergy Reactions Criticality Noted Date [...] patient's age to complete this topic [place] [address] [place] [address] Care Teams Humane Agent Relationship Specialty Start Date End Date Kimberly Arauz MD 112 [facility] 110 [place] [address] PCP - General Family Medicine 05/19/24
--- OUTSIDE RECORDS SUMMARY | 2025-02-05 11:44 | XMS_ITS | Clinical Summary ---
Author Organization [facility] Address [address] [place] [address] Phone Care Team Providers Care Entry Writer Name Role Phone Unavailable Primary Care Provider [...] age to complete this topic HPV Vaccines (No Doses Required) Completed Hepatitis A Vaccines Aged Out No long [...]
--- OUTSIDE RECORDS SUMMARY | 2025-02-05 11:44 | XMS_ITS | Encounter Summary ---
Author Organization [employer] Address [id number] [address] [place] [address] Care Team Providers Care Engine Maintenance Mechanic Name Role Phone Kimberly Arauz MD Primary Care Provider [phone] Encounter Details Date Type Department Care Team (Late st Contact Info) Description 10/18/2020 Orders Only [facility] [address] [facility] [place] [address] [place] [phone] Nat Lowry MA Social History Tobacco Use [...] PM EDT Office Visit [facility] [address] [place] [address] Carole Tyson, DO [address] [facility] [address] [place] [address] documented as of this encounter Visit Diagnoses Not on filedocumented in this encounter Care Teams Engine Maintenance Mechanic Relationship Specialty Start Date End Date Kimberly Arauz MD 112 [facility] 110 [place] [address] PCP - General Family Medicine 04/01/24 documented as of this encounter
--- OUTSIDE RECORDS SUMMARY | 2025-02-05 11:44 | XMS_ITS | Encounter Summary ---
Author Organization [facility] Address [address] [place] [address] Care Team Providers Care Pediatric Nephrologist Name Role Phone Kimberly Arauz MD Primary Care Provider [phone] Gonzales Still [employer] Unavailable Unava ilable Encounter Details Date Type Department Care Team (Late st Contact Info) Description 01/15/2025 Telephone [facility] [address] [place] [address] [place] [phone] Emani Bee LPN [address] [place], [place] [phone] Social History Tobacco Use Types Packs/Day Years [...] EDT Office Visit [facility] [address] [facility] [place] [address] Timmy Smiley, DO [address] [facility] [place] [address] 02/07/2025 9:00 AM EDT Telemedicine [facility] [address] [place] [place] [address] Gonzales Still LPC 02/15/2025 2:30 PM EDT Office Visit [facility] [address] [facility] [address] [place] [address] Kimberly Arauz MD [address] [facility] [address] [place] [address] documented as of this encounter Visit Diagnoses Not on filedocumented in this encounter Care Teams Pediatric Nephrologist Relationship Specialty Start Date End Date Kimberly Arauz MD [address] [facility] [address] [place] [address] PCP - General Family Medicine 01/20/23 Gonzales Still LPC Coal Gasification Technician Pheresis Specialist 10/02/24 documented as of this encounter
--- OUTSIDE RECORDS SUMMARY | 2025-02-05 11:44 | XMS_ITS | Encounter Summary ---
Author Organization [facility] Address [address] [place] [address] Care Team Providers Care Edger Runner Name Role Phone Kimberly Blancas MD Primary Care Provider [phone] Gonzales Still REGULATOR PIN INSERTER Unavailable Unava ilable Encounter Details Date Type Department Care Team (Late st Contact Info) Description 02/04/2024 Clinisync Result Encounter [facility] External Department Unsolicited Minoo Barbour, DENISSE [address] [facility] [address] [place] [address] Social History Tobacco Use Types Packs/Day Years [...] EDT Office Visit [facility] [address] [place] [phone] Timmy Smiley, DO [address] [facility] [place] [address] 02/07/2025 9:00 AM EDT Telemedicine [facility] [address] [place] [phone] Gonzales Still, REGULATOR PIN INSERTER 02/15/2025 2:30 PM EDT Office Visit [facility] [address] [facility] [address] [place] [address] Kimberly Blancas MD [address] [facility] [address] [place], [place] [id number] documented as of this encounter Procedures Procedure Name Priority Date/Time Associated Diagnosis Comments US BIOPSY FNA 02/04/2024 1:28 PM EDT documented in this encounter Results * US BIOPSY FNA (02/04/2024 1:28 PM EDT) Anatomical Region Laterality Modality Other 02/04/2024 1:28 PM EDT Narrative 02/04/2024 1:31 PM EDT The [address] [address] Ultrasound Report Signed Patient: Eli Fatima MR#: [id number] : 1995 Acct:[id number] Age/Sex: 28 / F ADM Date: 02/04/24 Loc: US Attending Dr: MINOO BARBOUR Ordering Physician: MINOO BARBOUR Date of Service: 02/04/24 Procedure(s): US biopsy FNA Accession Number(s): [id number] cc: KIMBERLY BLANCAS KAREN M The [address] [address] Patient Name: ELI FATIMA MRN: [id number] date: 1995 Sex: F Assigned Patient Location: US Current Patient Location: US Accession/Order Number: [id number] Exam Date: 02/04/2024 12:25 Report Date: 02/04/2024 13:28 At the request of: MINOO BARBOUR Procedure: US biopsy FNA EXAMINATION: US [...] Signed By: 02/04/24 1334 DD/ 1328 TD/TT: Siebel Developer: Procedure Note Radiology, Radiologist, MD - 02/04/2024 [place] [address] Ultrasound Report Signed Patient: Eli Fatima R#: [id number] : 1995Acct:[id number] Age/Sex: M Date: 02/04/24 Loc: US Attending Dr: MINOO BARBOUR Ordering Physician: MINOO BARBOUR Date of Service: 02/04/24 Procedure(s): US biopsy FNA Accession Number(s): [id number] cc: KIMBERLY BLANCAS ; MINOO BARBOUR The [place] [id number] Patient Name: ELI FATIMA MRN: [id number] date: 1995 Sex: F Assigned Patient Location: US Current Patient Location: US Accession/Order Number: [id number] Exam Date: 02/04/2024 12:25 Report Date: 02/04/2024 13:28 At the request of: MINOO BARBOUR Procedure: US biopsy FNA EXAMINATION: US [...] M.D. Signed By:02/04/24 1331 DD/ 1328 TD/TT: Siebel Developer: us [facility] Final Result documented in this encounter Visit Diagnoses Not on filedocumented in this encounter Care Teams Edger Runner Relationship Specialty Start Date End Date Kimberly Blancas MD [address] [place] [address] PCP - General Family Medicine 01/20/23 Gonzales Still LPC Hot Plate Press Operator Toddler Caregiver 10/02/24 documented as of this encounter
--- OUTSIDE RECORDS SUMMARY | 2025-02-05 11:44 | XMS_ITS | Encounter Summary ---
Author Organization [facility] tem Address [id number] [address] [place] [address] Care Team Providers Care Vessel Manager Name Role Phone Kimberly Arauz MD Primary Care Provider [phone] Encounter Details Date Type Department Care Team (Late st Contact Info) Description 12/15/2024 Telephone [facility] [address] [place] [phone] Pinky Ramos CMA Social History Tobacco Use Types Packs/Day Years Used Date Smoking Tobacco: Every Day Cigarettes Smokeless Tobacco: Never Alcohol Use Standard Drinks/Week Comments Not Currently 0 (1 standard drink = 0.6 oz pur e alcohol) [facility] Utilities Answer Date Recorded In the past 12 months has [employer], gas, oil, or water [employer] threatened to shut off services in your [...] PM EDT Office Visit [facility] [place] [address] [place] [address] Carole Tyson, DO [address] [facility] [address] [place] [address] documented as of this encounter Goals Goal [...] documented as of this encounter Care Teams Vessel Manager Relationship Specialty Start Date End Date Kimberly Arauz MD [address] [address] PCP - General Family Medicine 04/01/24 documented as of this encounter
--- OUTSIDE RECORDS SUMMARY | 2025-02-05 11:44 | XMS_ITS | Clinical Summary ---
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 BILIRUBIN,DIRECT 1.3(H) <=0.4 mg/dL 12/11/2024 7:18 AM EDT [facility] Comment:R-Specimen slightly hemolyzed, results decreased Blood Venous blood / Unknown 12/11/2024 5:42 AM EDT 12/11/2024 5:42 AM EDT us Tyler Anderson MD LAB BLOOD ORDERABLES Final Re sult [facility] [address] [place] [address], * (ABNORMAL) Basic Metabolic Panel (12/11/2024 5:42 AM EDT) Only the most recent of8 resultswithin the time period is included. SODIUM 131(L) 134 - 146 mmol/L 12/11/2024 7:05 AM EDT [facility] POTASSIUM 3.5 3.5 - 5.0 mmol/L 12/11/2024 7:05 AM EDT [facility] CHLORIDE 95(L) 98 - 109 mmol/L 12/11/2024 7:05 AM EDT [facility] CARBON DIOXIDE 26 22 - 32 mmol/L 12/11/2024 7:05 AM EDT [facility] ANION GAP 10 5 - 15 mmol/L 12/11/2024 7:05 AM EDT [facility] BLOOD UREA NITROGEN 5 5 - 23 mg/dL 12/11/2024 7:05 AM EDT [facility] CREATININE 0.68 0.40 - 1.00 mg/dL 12/11/2024 7:05 AM EDT [facility] Comment:METHOD TRACEABLE TO IDMS STANDARD GLUCOSE 87 65 - 99 mg/dL 12/11/2024 7:05 AM EDT [facility] CALCIUM 9.4 8.5 - 10.5 mg/dL 12/11/2024 7:05 AM EDT [facility] EGFR Non-Race Dependent >90 >=60 ml/min/1.7 3sq.m 12/11/2024 7:05 AM EDT [facility] Comment: Reported eGFR is based on the CKD-EPI 2020 equation that does not use a race coefficient. Blood 12/11/2024 5:42 AM EDT 12/11/2024 5:42 AM EDT us Cynthia Buckley INSTRUCTIONAL DESIGN MANAGER-AQUACULTURAL WORKER SUPERVISOR LAB BLOOD ORDERABLES Final Result [facility] [address] [place] [address], [place] [phone] * X-ray abdomen ap 1 view (12/10/2024 [...] MD on 12/10/2024 8:47 AM us Waldo Yuquentinaga DO IMG DIAGNOSTIC IMAGING ORDERABLE S Final Result * CT urogram (12/07/2024 4:14 PM EDT) Anatomical Region Laterality Modality Body, Abdomen, Body Covera N/A Compu imani Tomography 12/08/2024 7:29 AM EDT Addenda Addendum by Zane Ramirez MD on 12/08/2024 8:05 AM EDT *ADDENDUM*I sent a chat message which was confirmed with a reply from physician curatorial assistant DENISSE Oviedo at approximately 8:00 AM [...] hours at the phone number besidetheir name. Elayne SALCEDO VASCULAR ORDERABLES Final Result * (ABNORMAL) Troponin I, High Sensitivity (12/07/2024 6:23 AM EDT) Only the most recent of3 resultswithin the time period is included. TROPONIN I, HIGH SENSITIVITY 48(H) <16 ng/L 12/07/2024 8:13 AM EDT [facility] Blood (Other) 12/07/2024 6:2 3 AM EDT 12/07/2024 6:23 AM EDT Narrative [facility] - 12/07/2024 8:13 AM EDT Elevations of hs-Troponin may be due to causes other than myocardial ischemia. Recommend serial hs-Troponin testing be performed. For the initial evaluation and management of chest pain patients, refer to the algorithms linked below. Emergency Patient: [email or web address] Inpatient: [email or web address] us Valentin Shankar MD LAB BLOOD ORDERABLES Final Resul t [facility] [address] [place] [address], [place] [phone] * X-ray abdomen NG Tube placement 1 [...] Jose Gomez DO on 12/06/2024 10:06 AM us Valentin Shankar MD IMG MRI ORDERABLES Final Result * , urine (12/06/2024 12:38 AM EDT) URINE Negative Negative 12/06/2024 1:41 AM EDT [facility] Urine (Urine, Indwelling Catheter) 12/06/2024 12:38 AM EDT 12/06/2024 1:16 AM EDT Bayron Cantu MD URINE ORDERABLES Final Result [facility] [address] [place] [address], * X-ray shoulder left minimum 2 views [...] MD on 12/05/2024 8:33 AM Alexandra Marti INSTRUCTIONAL DESIGN MANAGER-AQUACULTURAL WORKER SUPERVISOR IMG DIAGNOSTIC IM AGING ORDERABLES Final Result * (ABNORMAL) APTT (12/05/2024 3:31 AM EDT) Only the most recent of3 resultswithin the time period is included. APTT 22(L) 26 - 37 sec 12/05/2024 4:25 AM EDT [facility] Blood 12/05/2024 3:31 AM EDT 12/05/2024 3:32 AM EDT us Sarahi Perez MD LAB BLOOD ORDERABLES Final Resul t Performing Organization Address City/[facility]/ZIP Co de Phone Number [facility] [address] [place] [address], [place] [phone] * (ABNORMAL) Protime & INR (12/05/2024 3:31 AM EDT) Only the most recent of3 resultswithin the time period is included. PROTIME 9.6(L) 9.8 - 13.2 sec 12/05/2024 4:25 AM EDT [facility] INR 0.8(L) 0.9 - 1.2 12/05/2024 4:25 AM EDT [facility] Blood 12/05/2024 3:31 AM EDT 12/05/2024 3:32 AM EDT us Sarahi Perez MD LAB BLOOD ORDERABLES Final Resul t [facility] [address] [place] [address], [place] [phone] * Fibrinogen (12/05/2024 3:31 AM EDT) Only the most recent of2 resultswithin the time period is included. FIBRINOGEN 357 190 - 480 mg/dL 12/05/2024 4:25 AM EDT [facility] Blood Venous blood / Unknown 12/05/2024 3:31 AM EDT 12/05/2024 3:32 AM EDT us Sarahi Perez MD LAB BLOOD ORDERABLES Final Resul t [facility] [address] [place] [address], [place] [phone] * Echo complete W/O contrast (12/04/2024 6:22 PM EDT) [facility] LVOT stroke volume 72.26 ml XCELERA [...] Velocity Ratio 0.88 XCELERA Left Ventricle Mass 105.08359 432202243 7 g XCELERA Interventricular Septum Diastolic Thickness [...] Mitral valve structure is normal. There is bumcr-ko-stpr regurgitation. There is no evidence of mitral [...] COMPARISON: None. TECHNIQUE: CTA chest obtained from [facility], labeled with patient's name and birthdate. [...] COMPARISON: None. TECHNIQUE: CTA chest obtained from [facility], labeled withpatient's name and birthdate. Initial [...] Our interpretation of studies performed at an [facility] medical center is limited by factors including the absence of technicalspecifics of the image, undisclosed clinical information and theunavailability of the original interpretation. [facility]ists at [facility] that performed the [facility] may have access to information not available to us that could make adifference in this interpretation. We suggest that you obtain theoriginal interpretation from the site where the study was performed. Finalized by Nolberto Tinajero MD on 12/05/2024 8:54 AM Scotty Bal IMG CT ORDERABLES Final R esult * Light Blue Top (12/04/2024 12:16 PM EDT) Extra Tube Auto Resulted 12/04/2024 5:01 PM EDT [facility] Blood Venous blood / Unknown Venipuncture / Unknown 12/04/2024 12:16 PM EDT 12/04/2024 12:32 PM EDT Dmitri Shaikh MD LAB BLOOD ORDERABLES Final Re sult [facility] [address] [place] [address], [place] [phone] * Phosphorus (12/04/2024 12:16 PM EDT) PHOSPHORUS 4.0 2.4 - 4.9 mg/dL 12/04/2024 1:25 PM EDT [facility] Blood Venous blood / Unknown Venipuncture / Unknown 12/04/2024 12:16 PM EDT 12/04/2024 12:30 PM EDT us Tyler Anderson MD LAB BLOOD ORDERABLES Final Re sult [facility] [address] [place] [address], * (ABNORMAL) Magnesium (12/04/2024 12:16 PM EDT) Pathologist [facility] MAGNESIUM 1.7(L) 1.8 - 2.6 mg/dL 12/04/2024 1:25 PM EDT [facility] Blood Venous blood / Unknown Venipuncture / Unknown 12/04/2024 12:16 PM EDT 12/04/2024 12:30 PM EDT us Tyler Anderson MD LAB BLOOD ORDERABLES Final Re sult [facility] [address] [place] [address], * Ionized calcium (12/04/2024 12:16 PM EDT) IONIZED CALCIUM - ICAN 4.9 4.5 - 5.3 mg/dL 12/04/2024 1:32 PM EDT [facility] Blood Venous blood / Unknown Venipuncture / Unknown 12/04/2024 12:16 PM EDT 12/04/2024 12:43 PM EDT us Tyler Anderson MD LAB BLOOD ORDERABLES Final Re sult [facility] [address] [place] [address], * ABO Rh Repeat (12/04/2024 11:26 AM EDT) ABO A 12/04/2024 1:25 PM EDT [facility] RH Positive 12/04/2024 1:25 PM EDT [facility] Blood Venous blood / Unknown Venipuncture / Unknown 12/04/2024 11:26 AM EDT 12/04/2024 12:01 PM EDT Scotty Sheth NM BLOOD BANK TEST ORDERABLE S Final Result Performing Organization Address [facility]/[place]UST Co de Phone Number [facility] [employer] [address] [place] [address], [facility] [address] [place] [address], [place] * Type and screen(includes indirect long) (12/04/2024 11:26 AM EDT) ABO A 12/04/2024 12:58 PM EDT [facility] RH Positive 12/04/2024 12:58 PM EDT [facility] Antibody Screen Negative 12/04/2024 12:58 PM EDT [facility] Blood Venous blood / Unknown Venipuncture / Unknown 12/04/2024 11:26 AM EDT 12/04/2024 12:01 PM EDT us Scotty Sheth NM BLOOD BANK TEST ORDERABLE S Edited Result - Final Performing Organization Address City/[facility]/ZIP Co de Phone Number [facility] [employer] [address] [place] [address], [facility] [address] [place] [address], [place] * Ethanol (12/04/2024 11:26 AM EDT) ETHANOL <0.010 <=0.080 g/dL 12/04/2024 12:21 PM EDT [facility] Comment: This report is intended for use in clinical monitoring or management of patients. Blood Venous blood / Unknown 12/04/2024 11:26 AM EDT 12/04/2024 11:41 AM EDT us Scotty Bal LAB BLOOD ORDERABLES Racquel riddle Result [facility] [address] [place] [address], * (ABNORMAL) Drug Screen, Urine (12/04/2024 11:24 AM EDT) AMPHETAMINE/METHAM P Negative Negative 12/04/2024 1:48 PM EDT [facility] Comment:AMPH/METH screening cut off = 1000 ng/mL COCAINE METABOLITE Negative Negative 2024 1:48 PM EDT [facility] Comment:Cocaine screening cu t off value = 300 ng/mL ECSTASY Negative Negative 12/04/2024 1:48 PM EDT [facility] Comment:Ecstasy screening cu t off value = 500 ng/mL METHADONE Negative Negative 12/04/2024 1:48 PM EDT [facility] Comment:Methadone screening cut off value = 300 ng/mL. OPIATES Positive(A) Negative 12/04/2024 1:48 PM EDT [facility] Comment: Opiates screening cut off value = 300 ng/mL This test is used for the detection of codeine, hydrocodone (>1000 ng/mL), morphine and hydromorphone (>900 ng/mL) in urine. OXYCODONE Negative Negative 12/04/2024 1:48 PM EDT [facility] Comment: Oxycodone screening cut off value = 300 ng/mL This test is used for the detection of oxycodone and oxymorphone in urine. PHENCYCLIDINE Negative Negative 12/04/2024 1:48 PM EDT [facility] Comment:Phencyclidine screen ing cut off value = 25 ng/mL CANNABINOIDS Positive(A) Negative 12/04/2024 1:48 PM EDT [facility] Comment:Cannabinoids/THC scr eening cut off value = 50 ng/mL Urine Barbiturates Negative Negative 2024 1:48 PM EDT [facility] Comment:Barbiturates screeni ng cut off value = 200 ng/mL BENZODIAZEPINES Positive(A) Negative 12/05/19 1:48 PM EDT [facility] Comment:Benzodiazepines scre ening cut off value = 200 ng/mL Urine 12/04/2024 11:2 4 AM EDT 12/04/2024 12:08 PM EDT Narrative [facility] - 12/04/2024 1:48 PM EDT Confirmation available upon request. us Scotty Bal URINE ORDERABLES Final Re sult [facility] [address] [place] [address], * (ABNORMAL) Urinalysis (12/04/2024 11:24 AM EDT) COLOR Yellow Yellow 12/04/2024 1:05 PM EDT [facility] TURBIDITY Clear Clear 12/04/2024 1:05 PM EDT [facility] SPECIFIC GRAVITY 1.010 1.003 - 1.035 12/04/2024 1:05 PM EDT [facility] NITRITE Negative Negative 12/04/2024 1:05 PM EDT [facility] PH,URINE 5.5 5.0 - 8.5 12/04/2024 1:05 PM EDT [facility] LEUKOCYTE ESTERASE Negative Negative 12/04/2024 1:05 PM EDT [facility] PROTEIN 50 mg/dL(A) Negative 12/04/2024 1:05 PM EDT [facility] KETONES (URINE) Negative Negative 1:05 PM EDT [facility] UROBILINOGEN <1.1 eu/dL <1.1 eu/dL 12/04/2024 1:05 PM EDT [facility] BILIRUBIN (URINE) Negative Negative 12/04/2024 1:05 PM EDT [facility] BLOOD/HGB Moderate(A) Negative 12/04/2024 1:05 PM EDT [facility] MUCOUS Present(A) None 12/04/2024 1:05 PM EDT [facility] R.B.CELLS 6(H) 0 - 5 12/04/2024 1:05 PM EDT [facility] SQUAMOUS EPITHELIUM 1 0 - 5 12/04/2024 1:05 PM EDT [facility] W.B.CELLS 0 0 - 5 12/04/2024 1:05 PM EDT [facility] GLUCOSE (URINE) 150 mg/dL(A) Negative 12/04/2024 1:05 PM EDT [facility] Urine 12/04/2024 11:2 4 AM EDT 12/04/2024 12:08 PM EDT Narrative [facility] - 12/04/2024 1:05 PM EDT Urine received without preservative. Delays in transport may affect results. Interpret with caution. A clinical correlation is recommended. Scotty Bal URINE ORDERABLES Final Re sult [facility] [address] [place] [address], [place] [phone] * ED Fast Ultrasound (12/04/2024 11:10 AM [...] - 146 mmol/L 12/04/2024 11:22 AM EDT [facility] POC Potassium 4.2 3.5 - 5.0 mmol/L 12/04/2024 11:22 AM EDT [facility] POC Chloride 105 98 - 109 mmol/L 12/04/2024 11:22 AM EDT [facility] POC TCO2 24 22 - 32 mmol/L 12/04/2024 11:22 AM EDT [facility] POC Glucose 142(H) 65 - 99 mg/dL 12/04/2024 11:22 AM EDT [facility] POC BUN 19 6 - 23 mg/dL 12/04/2024 11:22 AM EDT [facility] POC Creatinine 0.9 0.4 - 1.0 mg/dL 12/04/2024 11:22 AM EDT [facility] POC Hematocrit 47 39 - 47 % 12/04/2024 11:22 AM T [facility] POC EGFR Non-Race Dependent 90 >=60 ml/min/1.7 3sq.m 12/04/2024 11:22 AM EDT [facility] Comment: Reported eGFR is based on the CKD-EPI 2020 equation that does not use a race coefficient. 12/04/2024 11:1 0 AM EDT 12/04/2024 11:22 AM EDT us POINT OF CARE TEST ORDERABLES Fi nal Result [facility] [address] [place] [address], * Critical Care (12/04/2024 10:52 AM EDT) Narrative Zoie Soto DO - 12/04/2024 10:52 AM EDT Zoie [...] of patient's condition and pulse oximetry us Manal W Charles DO PROCEDURE/MINOR SURGICAL ORDERAB LES Final Result * CT brain without contrast (12/04/2024 [...] with the renal veins There is a rxigr-wy-aqidqcxh amount of fluid and blood in the [...] pulsation artifact along the ascending aorta which [id number] mm There is some haziness or trace [...] 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 Specialists at [facility] that performed the study may have [...] Last 3 Months Insurance [place] [employer] [facility] [place] [facility] [employer] Advance Directives * Full Code (Latest Code Status on File) Date Activated Date Inactivated Comments 12/04/2024 12:12 PM 12/12/2024 5:51 PM Care Teams Earth Science Faculty Member Relationship Specialty Start Date End Date Kimberly Arauz MD [address] [facility] [address] [place] [address] PCP - General Family Medicine 04/01/24
--- OUTSIDE RECORDS SUMMARY | 2025-02-05 11:44 | XMS_ITS | Encounter Summary ---
Author Organization [employer] Address [id number] [address] [place] [address] Care Team Providers Care Master Of Ceremonies Name Role Phone Kimberly Arauz MD Primary Care Provider Reason for Visit * Reason Onset Date Comments Hospital Follow-up 12/06/2024 Encounter Details Date Type Department Care Team (Late st Contact Info) Description [facility] [address] [place] [address] [facility] Follow-up Social History Tobacco Use Types Packs/Day Years Used Date Smoking Tobacco: Every Day Cigarettes Smokeless Tobacco: Never Alcohol Use Standard Drinks/Week Comments Not Currently 0 (1 standard drink = 0.6 oz pur e alcohol) [facility] Utilities Answer Date Recorded In the past 12 months has [employer], gas, oil, or water [employer] threatened to shut off services in your [...] WFL 12/09/2024 8:59 AM EDT Selina Yeung OTR/Merle documented in this encounter Miscellaneous Notes * Telephone Encounter - Elza Tolliver - 12/06/2024 7:42 AM EDT Message from the 12/05/24 discharge list per MMM. He signed off patient care from [facility] Dx 1. Bradycardia seems to be increased [...] Description 02/26/2025 3:30 PM EDT Office Visit [facility] [place] [address] [place] [address] [place] [address] [place] [address] [place] [id number] documented as of this encounter Goals Goal [...] documented as of this encounter Care Teams Master Of Ceremonies Relationship Specialty Start Date End Date Kimberly Arauz MD [address] [facility] [address] [place] [address] PCP - General Family Medicine 04/01/24 documented as of this encounter
--- OUTSIDE RECORDS SUMMARY | 2025-02-05 11:44 | XMS_ITS | Encounter Summary ---
Author Organization [facility] Address [address] [place] [address] Care Team Providers Care Ice Cream Vault Worker Name Role Phone Kimberly Arauz MD Primary Care Provider [phone] [place] [facility] INSTRUCTOR Unavailable Unava ilable Encounter Details Date Type Department Care Team (Late Contact Info) Description 08/24/2024 Orders Only [facility] [address] [place] [address] Alison Murillo [place] [address] [place] [address] Social History Tobacco Use Types Packs/Day Years [...] EDT Office Visit [facility] [address] [facility] [place] [address] Timmy Smliey DO [address] [facility] [place] [address] 02/07/2025 9:00 AM EDT Telemedicine [facility] [address] [place] [phone] Gonzales Still LPC 02/15/2025 2:30 PM EDT Office Visit [facility] [address] [facility] [address] [place] [phone] Kimberly Arauz MD 112 [facility] [address] [place] [address] documented as of this encounter Procedures Procedure Name Priority Date/Time Associated Diagnosis Comments PAP SMEAR Routine 08/14/2024 12:00 AM EST documented in this encounter Results * Pap Smear (08/14/2024 12:00 AM EST) Swab Cervical swab / Unknown Timmy Smiley DO LAB CYTOLOGY ORDERABLES Final Re sult EXTERNAL LAB documented in this encounter Visit Diagnoses Not on filedocumented in this encounter Care Teams Ice Cream Vault Worker Relationship Specialty Start Date End Date Kimberly Arauz MD [address] [facility] [address] [place] [address] PCP - General Family Medicine 01/20/23 Gonzales Still LPC Sas Programmer Camp Maintenance Supervisor 10/02/24 documented as of this encounter
--- OUTSIDE RECORDS SUMMARY | 2025-02-05 11:44 | XMS_ITS | Encounter Summary ---
Author Organization [employer] [facility] tem Address [id number] [address] [place] [address] Care Team Providers Care Rag Boiler Name Role Phone Kimberly Arauz MD Primary Care Provider [phone] Encounter Details Date Type Department Care Team (Late st Contact Info) Description 12/12/2024 Telephone [facility] [address] [place] [id number] Pinky Ramos CMA Social History Tobacco Use Types Packs/Day Years Used Date Smoking Tobacco: Every Day Cigarettes Smokeless Tobacco: Never Alcohol Use Standard Drinks/Week Comments Not Currently 0 (1 standard drink = 0.6 oz pur e alcohol) [facility] Utilities Answer Date Recorded In the past 12 months has [employer], gas, oil, or water [facility] threatened to shut off services in your [...] PM EDT Office Visit [facility] [address] [place] [address] Carole Tyson, DO [address] [facility] [address] [place] [address] documented as of this encounter Goals Goal [...] documented as of this encounter Care Teams Rag Boiler Relationship Specialty Start Date End Date Kimberly Arauz MD [address] [address] PCP - General Family Medicine 04/01/24 documented as of this encounter
--- OUTSIDE RECORDS SUMMARY | 2025-02-05 11:44 | XMS_ITS | Encounter Summary ---
Author Organization [facility] Address [address] [place] [address] Care Team Providers Care Ammunition And Explosives Handler Name Role Phone Kimberly Arauz MD Primary Care Provider [phone] Gonzales Still ANIME ARTIST Unavailable Unava ilable Encounter Details Date Type Department Care Team (Late st Contact Info) Description 02/07/2024 Orders Only [facility] [address] [place] [phone] iMnoo Barbour PA [address] [facility] [address] [place], [place] [id number] Lump of scalp Social History Tobacco Use [...] Office Visit [facility] [address] [place] [phone] Timmy Smiley, DO [address] [facility] [place] [address] 02/07/2025 9:00 AM EDT Telemedicine [facility] [address] [place] [phone] Gonzales Still LPC 02/15/2025 2:30 PM EDT Office Visit [facility] [address] [facility] [address] [place] [phone] Kimberly Arauz MD [address] [facility] [address] [place] [address] documented as of this encounter Visit Diagnoses Diagnosis Lump of scalp documented in this encounter Care Teams Ammunition And Explosives Handler Relationship Specialty Start Date End Date Kimberly Arauz MD [address] [facility] [address] [place] [address] PCP - General Family Medicine 01/20/23 Gonzales Still LPC Production Truck Driver Vp Product Marketing 10/02/24 documented as of this encounter
--- OUTSIDE RECORDS SUMMARY | 2025-02-05 11:45 | XMS_ITS | Encounter Summary ---
Author Organization [facility] Address [address] [place] [address] Care Team Providers Care Physicist Solid [place] Name Role Phone Kimberly Arauz MD Primary Care Provider [phone] Gonzales Still PRIMER INSERTING MACHINE OPERATOR Unavailable Unava ilable Encounter Details Date Type Department Care Team (Late Contact Info) Description 01/23/2025 Clinisync Result Encounter [facility] External Department Unsolicited [...] [address] [facility] [place] [phone] Timmy Smiley, DO [address] [facility] [address] [place], [place] [id number] 02/07/2025 9:00 AM EDT Telemedicine [facility] [address] [place] [address] Tessy Gonzales, PRIMER INSERTING MACHINE OPERATOR 02/15/2025 2:30 PM EDT Office Visit [facility] [address] [place] [address] Kimberly Arauz MD [address] [place], [place] [phone] documented as of this encounter Procedures Procedure Name Priority Date/Time Associated Diagnosis Comments ALDOSTERONE LCMS, SERUM Routine 01/23/2025 4:40 PM EDT [facility] RENIN,PLASMA Routine 01/23/2025 4:40 PM EDT documented in this encounter Results * (ABNORMAL) ALDOSTERONE LCMS, SERUM (01/23/2025 4:40 PM EDT) ALDOSTERONE LCMS, SERUM 32.5(A) 0.0 - 30.0 ng/dL [facility] Comment: This test was developed and its performance characteristics determined by [facility]. It has not been cleared or approved by the Food and Drug Administration. Performed at: [address] [id number] Pointer Helper: Ashwin Rahman MD, Phone: [phone] 01/23/2025 4:40 PM EDT 01/23/2025 4:44 PM EDT Narrative [facility] - 01/28/2025 3:09 PM EDT us Generic External Data Provider LAB BLOOD ORDERAB LES Final Result [facility], [facility] * (ABNORMAL) [facility] RENIN,PLASMA (01/23/2025 4:40 PM EDT) RENIN ACTIVITY, PLASMA 17.193(A) 0.167 - 5.380 ng/mL/hr TB Comment: This test was developed and its performance characteristics determined by [facility]. It has not been cleared or approved by the Food and Drug Administration. Performed at: [facility] [address] [id number] Pointer Helper: Ashwin Rahman MD, Phone: [phone] 01/23/2025 4:40 PM EDT 01/23/2025 4:44 PM EDT Narrative [facility] - 01/28/2025 2:09 PM EDT us Generic External Data Provider [facility] F inal Result [facility] documented in this encounter Visit Diagnoses Not on filedocumented in this encounter Care Teams Physicist Solid Earth Relationship Specialty Start Date End Date Kimberly Arauz MD [address] [place] [address] PCP - General Family Medicine 01/20/23 Gonzales Still LPC Quarry Extraction Worker Business Continuity Manager 10/02/24 documented as of this encounter
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
--- OUTSIDE RECORDS SUMMARY | 2025-02-05 11:45 | XMS_ITS | Encounter Summary ---
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 Unava ilable Encounter Details Date Type Department Care Team (Late st Contact Info) Description 10/18/2023 Abstract [facility] CI FM [address] [facility] 110 [place] [address] Kimberly Arauz MD 112 [facility] 110 [place], [place] [address] Social History Tobacco Use Types Packs/Day Years [...] Office Visit [facility] BCP OB [address] [place] [address] Timmy Smiley, DO [address] [facility] [place] [address] 02/07/2025 9:00 AM EDT Telemedicine [facility] S[facility] BH [address] [place] [address] Gonzales Still LPC 02/15/2025 2:30 PM EDT Office Visit [facility] CI FM [address] [facility] 110 [place] [address] Kimberly Arauz MD [address] [facility] 110 [place] [address] documented as of this encounter Visit Diagnoses Not on filedocumented in this encounter Care Teams Senior Drafter Relationship Specialty Start Date End Date Kimberly Arauz MD [address] [facility] 110 [place] [address] PCP - General Family Medicine 01/20/23 Gonzales Still LPC Professor Of Apologetics Car 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
--- OUTSIDE RECORDS SUMMARY | 2025-02-05 11:45 | XMS_ITS | Encounter Summary ---
Author Organization [facility] Address [address] [place] [address] Care Team Providers Care Stock Tracer Name Role Phone Kimberly Arauz MD Primary Care Provider [phone] Gonzales Still ORTHODONTIST Unavailable Unava ilable Encounter Details Date Type Department Care Team (Late st Contact Info) Description 01/25/2023 Orders Only [facility] CI FM [address] [facility] 110 [place] [address] Minoo Barbour PA [address] [facility] 110 [place] [address] Social History Tobacco Use Types Packs/Day Years [...] AM EDT Office [place] [address] Timmy Smiley DO [address] [facility] [place] [address] 02/07/2025 9:00 AM EDT Telemedicine [facility] [address] [place] [address] Gonzales Still LPC 02/15/2025 2:30 PM EDT Office Visit [facility] CI FM 112 [address] [facility] 110 [place] [address] Kimberly Arauz MD 112 [facility] 110 [place], [place] [address] documented as of this encounter Procedures Procedure Name Priority Date/Time Associated Diagnosis Comments SCANNED LABS Routine 01/23/2023 11:05 AM EDT documented in this encounter Results * SCANNED LABS (01/23/2023 11:05 AM EDT) us M[facility] CHG PERFORMABLES Final Res ult documented in this encounter Visit Diagnoses Not on filedocumented in this encounter Care Teams Stock Tracer Relationship Specialty Start Date End Date Kimberly Arauz MD 112 [address] [facility] 110 [place] [address] PCP - General Family Medicine 01/20/23 Gonzales Still LPC Putaway Driver Bridge Worker 10/02/24 documented as of this encounter
--- OUTSIDE RECORDS SUMMARY | 2025-02-05 11:45 | XMS_ITS | Encounter Summary ---
Author Organization [facility] Address [address] [place] [address] Care Team Providers Care Dough Mixer Operator Name Role Phone Kimberly Blancas MD Primary Care Provider [phone] Gonzales Still ELECTRONIC PREPRESS TECHNICIAN Unavailable Unava ilable Encounter Details Date Type Department Care Team (Late st Contact Info) Description 01/27/2024 Clinisync Result Encounter NOMS External Department Unsolicited Kimberly Blancas MD [address] [facility] 110 [place] [address] Social History Tobacco Use Types Packs/Day Years [...] OB [address] [facility] [place] [address] Timmy Smiley, DO 102 [facility] [place] [address] 02/07/2025 9:00 AM EDT Telemedicine [facility] S[facility] [address] [place] [address] JoaquinZoeyGonzales Emerson, ELECTRONIC PREPRESS TECHNICIAN 02/15/2025 2:30 PM EDT Office Visit [facility] CI FM [address] [facility] 110 [place] [address] Kimberly Blancas MD [address] [facility] 110 [place], [place] [address] documented as of this encounter Procedures Procedure Name Priority Date/Time Associated Diagnosis Comments US SOFT TISSUE HEAD AND NECK 01/27/2024 11:10 AM EDT documented in this encounter Results * US SOFT TISSUE HEAD AND NECK (01/27/2024 11:10 AM EDT) Anatomical Region Laterality Modality Other 01/27/2024 11:1 0 AM EDT Narrative 01/27/2024 11:12 AM EDT [address] [address] Ultrasound Report Signed Patient: NAFISA ELLIOTT MR#: [id number] : 1995 Acct:[id number] Age/Sex: 28 / F ADM Date: 01/26/24 Loc: US Attending Dr: KIMBERLY BLANCAS Ordering Physician: KIMBERLY BLANCAS Date of Service: 01/26/24 Procedure(s): US soft tissue head and neck Accession Number(s): [id number] cc: KIMBERLY BLANCAS [address] [address] Patient Name: NAFISA ELLIOTT MRN: [id number] date: 1995 Sex: F Assigned Patient Location: US Current Patient Location: Accession/Order Number: [id number] Exam Date: 01/26/2024 09:35 Report Date: 01/27/2024 [...] Signed By: 01/27/24 1112 DD/ 1110 TD/TT: Research Tech: Procedure Note Radiology, Radiologist, MD - 01/27/2024 The [place] [id number] Ultrasound Report Signed Patient: NAFISA ELLIOTT JMR#: [id number] : 1995Acct:[id number] Age/Sex: 28 FADM Date: 01/26/24 Loc: US Attending Dr: KIMBERLY BLANCAS Ordering Physician: KIMBERLY BLANCAS Date of Service: 01/26/24 Procedure(s): US soft tissue head and neck Accession Number(s): [id number] cc: KIMEBRLY BLANCAS The [address] [address] Patient Name: NAFISA ELLIOTT MRN: [id number] date: 1995 Sex: F Assigned Patient Location: US Current Patient Location: Accession/Order Number: [id number] Exam Date: 01/26/2024 09:35 Report Date: 01/27/2024 [...] M.D. Signed By:01/27/24 1112 DD/ 1110 TD/TT: Research Tech: us Kimberly Blancas MD [facility] Final Result documented in this encounter Visit Diagnoses Not on filedocumented in this encounter Care Teams Dough Mixer Operator Relationship Specialty Start Date End Date Kimberly Blancas MD 112 [place] [address] PCP - General Family Medicine 01/20/23 Gonzales Still LPC Hole Digger Operator Transportation Officer 10/02/24 documented as of this encounter
--- OUTSIDE RECORDS SUMMARY | 2025-02-05 11:45 | XMS_ITS | Encounter Summary ---
Author Organization [facility] Address [address] [place] [address] Care Team Providers Care Hat Sprayer Name Role Phone Kimberly Arauz MD Primary Care Provider [phone] Gonzales Still MARINE FIREFIGHTER Unavailable Unava ilable Encounter Details Date Type Department Care Team (Late Contact Info) Description 01/21/2023 Abstract [facility] CI FM [address] [facility] 110 [place] [address] Kimberly Arauz MD 112 [facility] 110 [place], [place] [address] Social History Tobacco Use Types Packs/Day Years [...] Encounters Date Type Department Care Team (Late Contact Info) Description 02/06/2025 8:10 AM EDT Office Visit [facility] BCP OB [address] [place] [address] Agata Smileyy, DO [address] [facility] [place] [address] 02/07/2025 9:00 AM EDT Telemedicine [facility] [address] [facility] 300 [place] [address] Gonzales Still LPC 02/15/2025 2:30 PM EDT Office Visit [facility] CI FM [address] [facility] 110 [place] [address] Kimberly Arauz MD 112 [place] [facility] 110 [place] [address] documented as of this encounter Visit Diagnoses Not on filedocumented in this encounter Care Teams Hat Sprayer Relationship Specialty Start Date End Date Kimberly Arauz MD [address] [place] [facility] 110 [place] [address] PCP - General Family Medicine 01/20/23 Gonzales Still LPC Production Hardener Help Desk Supervisor 10/02/24 documented as of this encounter
--- OUTSIDE RECORDS SUMMARY | 2025-02-05 11:45 | XMS_ITS | Encounter Summary ---
Author Organization [facility] Address [address] [facility] [address] [place] [address] Care Team Providers Care Dynamics Ax Developer Name Role Phone Kimberly Blancas MD Primary Care Provider [phone] Gonzales Still BOTTOM SCRUBBER Unavailable Unava ilable Encounter Details Date Type Department Care Team (Late Contact Info) Description 06/01/2023 Clinisync Result Encounter [...] 02/06/2025 8:10 AM EDT Office Visit NOMS [address] [place] [address] Timmy Smiley, DO 102 [facility] [place] [address] 02/07/2025 9:00 AM EDT Telemedicine [facility] [address] [place] [address] Joaquin-Gonzales Emerson, BOTTOM SCRUBBER 02/15/2025 2:30 PM EDT Office Visit [facility] CI FM [address] [facility] 110 [place] [address] Kimberly Blancas MD 112 [facility] 110 [place] [address] documented as of this encounter Procedures Procedure Name Priority Date/Time Associated Diagnosis Comments US PELVIS W/ TRANSVAGINAL 06/01/2023 1:12 PM EDT documented in this encounter Results * US PELVIS W/ TRANSVAGINAL (06/01/2023 1:12 PM EDT) Anatomical Region Laterality Modality Other 06/01/2023 1:12 PM EDT Narrative 06/01/2023 1:12 PM EDT The [address] [address] Ultrasound Report Signed Patient: Anabel Fatima MR#: [id number] : 1995 Acct:[id number] Age/Sex: 27 / F ADM Date: 06/01/23 Loc: US Attending Dr: Timmy Smiley D.O. Ordering Physician: Timmy Smiley D.O. Date of Service: 06/01/23 Procedure(s): US pelvis w/ transvaginal Accession Number(s): [id number] cc: KIMBERLY BLANCAS ; Timmy Smiley D.O. The [address] [address] Patient Name: ANABEL FATIMA MRN: [facility]:[id number] date: 1995 Sex: F Assigned Patient Location: US Current Patient Location: US Accession/Order Number: [id number] Exam Date: 06/01/2023 10:58 Report Date: 06/01/2023 [...] Alvaro Willett Signed By: 06/01/23 1315 DD/ 1312 TD/TT: Medical Support Specialist: Procedure Note Radiology, Radiologist, MD - 06/01/2023 [place] [address] Ultrasound Report Signed Patient: Anabel Fatima JMR#: [id number] : 1995Acct:[id number] Age/Sex: 27 / FADM Date: 06/01/23 Loc: US Attending Dr: Timmy Smiley D.O. Ordering Physician: Timmy Smiley D.O. Date of Service: 06/01/23 Procedure(s): US pelvis w/ transvaginal Accession Number(s): [id number] cc: KIMBERLY BLANCAS ; Timmy Smiley D.O. The [address] [address] Patient Name: ANABEL FATIMA MRN: [id number] date: 1995 Sex: F Assigned Patient Location: US Current Patient Location: US Accession/Order Number: [id number] Exam Date: 06/01/2023 10:58 Report Date: 06/01/2023 [...] 06/01/2023 13:12 Dictated By: Alvaro Willett Signed By:06/01/23 131 DD/ 131 TD/TT: Medical Support Specialist: us Generic External Data Provider [facility] Final Result documented in this encounter Visit Diagnoses Not on filedocumented in this encounter Care Teams Dynamics Ax Developer Relationship Specialty Start Date End Date Kimberly Blancas MD [address] [place] [address] PCP - General Family Medicine 01/20/23 Gonzales Still LPC Salvage Mend Worker Cabin Worker 10/02/24 documented as of this encounter
--- OUTSIDE RECORDS SUMMARY | 2025-02-05 11:45 | XMS_ITS | Encounter Summary ---
Author Organization [facility] Address [address] [place] [address] Care Team Providers Care Ent Consultant Name Role Phone Kimberly Arauz MD Primary Care Provider [phone] Gonzales Still HALL SUPERVISOR Unavailable Unava ilable Reason for Visit * Reason Onset Date Comments ER Follow-up 01/22/2025 Encounter Details Date Type Department Care Team (Late st Contact Info) Description 01/22/2025 Telephone [facility] 112 [facility] 110 [place] [address] Kimberly Arauz MD 112 [facility] 110 [place] [address] ER Follow-up Social History Tobacco Use Types Packs/Day [...] Telephone Encounter - Emani Bee LPN - 01/22/2025 9:37 AM EDT HENRIQUE completed. documented in this encounter Plan of Treatment Upcoming Encounters Date Type Department Care Team (Late st Contact Info) Description 02/06/2025 8:10 AM EDT Office Visit [facility] BCP OB [address] [place] [address] Timmy Smiley, DO [address] [place], [place] [address] 02/07/2025 9:00 AM EDT Telemedicine [facility] [address] [place] [address] [place] [address] Gonzales Still LPC 02/15/2025 2:30 PM EDT Office Visit [facility] [address] [place] [address] [place] [address] Kimberly Arauz MD [address] [place] [address] [place] [address] documented as of this encounter Visit Diagnoses Not on filedocumented in this encounter Care Teams Ent Consultant Relationship Specialty Start Date End Date Kimberly Arauz MD [address] [place] [address] [place] [address] PCP - General Family Medicine 01/20/23 Gonzales Still LPC Tattoo Identifier Leather Tacker 10/02/24 documented as of this encounter
--- OUTSIDE RECORDS SUMMARY | 2025-02-05 11:45 | XMS_ITS | Encounter Summary ---
Author Organization [facility] Address [address] [place] [address] Care Team Providers Care Supervisor Research Shop Name Role Phone Kimberly Arauz MD Primary Care Provider [phone] Gonzales Still CLINICAL TRIALS SYSTEMS ADMINISTRATOR Unavailable Unava ilable Encounter Details Date Type Department Care Team ([facility] Contact Info) Description 06/02/2023 Orders Only [facility] CI FM [address] [place] [address] A, Unknown Practice [address] [place], [place] [address] Social History Tobacco Use Types Packs/Day Years [...] Upcoming Encounters Date Type Department Care Team ([facility] Contact Info) Description 02/06/2025 8:10 AM EDT Office Visit [facility] BCP OB [address] [facility] [place] [address] Timmy Smiley, DO [address] [facility] [address] [place], [place] [address] 02/07/2025 9:00 AM EDT Telemedicine [facility] [address] [place] [address] Gonzales Still LPC 02/15/2025 2:30 PM EDT Office Visit [facility] CI FM [address] [facility] 110 [place] [address] Kimberly Arauz MD 112 [place] [facility] 110 [place] [address] documented as of this encounter Procedures Procedure [...] on filedocumented in this encounter Care Teams Supervisor Research Shop Relationship Specialty Start Date End Date Kimberly Arauz MD [address] [place] [facility] 110 [place] [address] PCP - General Family Medicine 01/20/23 Gonzales Still LPC Supervisor Malt House Network Developer 10/02/24 documented as of this encounter
--- OUTSIDE RECORDS SUMMARY | 2025-02-05 11:45 | XMS_ITS | Encounter Summary ---
Author Organization [facility] Address [address] [place] [address] Care Team Providers Care Paving Block Cutter Name Role Phone Kimberly Arauz MD Primary Care Provider [phone] Gonzales Still HOG RINGER Unavailable Unava ilable Encounter Details Date Type Department Care Team (Late Contact Info) Description 01/21/2023 Abstract [facility] CI FM 112 [address] [facility] 110 [place] [address] Minoo Barbour PA 112 [place] [facility] 110 [place] [address] Social History Tobacco Use Types Packs/Day Years [...] Visit NOM[facility] BCP OB [address] [place] [address] Agata Smileyy, DO [address] [facility] [place] [address] 02/07/2025 9:00 AM EDT Telemedicine [facility] [address] [facility] 300 [place] [address] Gonzales Still LPC 02/15/2025 2:30 PM EDT Office Visit [facility] CI FM [address] [facility] 110 [place] [address] Kimberly Arauz MD 112 [place] [facility] 110 [place] [address] documented as of this encounter Visit Diagnoses Not on filedocumented in this encounter Care Teams Paving Block Cutter Relationship Specialty Start Date End Date Kimberly Arauz MD [address] [place] [facility] 110 [place] [address] PCP - General Family Medicine 01/20/23 Gonzales Still LPC Registered Public Health Nurse Wad Compressor Operator Adjuster 10/02/24 documented as of this encounter
--- NOTE | 2025-02-05 13:41 | P.STRESS_ITS ---
Stress Test Stress Test Allergies Allergy/AdvReac Type Severity Reaction Status Date / Time alprazolam Allergy Rash Verified 02/28/24 21:15 bisacodyl Allergy Rash Verified 02/28/24 21:15 buspirone Allergy Rash Verified 02/28/24 21:15 fluoxetine Allergy Unknown Verified 11/29/24 09:15 hydroxyzine Allergy syncope Verified 02/28/24 21:15 methylprednisolone Allergy Rash Verified 02/28/24 21:15 metronidazole (From Flagyl) Allergy Rash Verified 02/28/24 21:15 basil oil AdvReac Numbness Uncoded 02/28/24 21:15 Requesting physician: FABIAN SMITH Procedure: This was a Treadmill stress test performed at the [facility] on 02/05. The patient was attached to electrocardiographic monitoring. Baseline vital signs and ECG were obtained. The patient exercised on the treadmill according to the Jose protocol. Total exercise time was 5 minutes and 53 seconds. The patient reached stage II of the Jose protocol and achieved 7 METS. The test was stopped due to reaching target heart rate. Resting heart rate was 100 bpm and peak heart rate was 169 bpm representing 87% of peak predicted heart rate. Resting blood pressure was 138/76 and peak blood pressure was 146/80. General Information: Reason for Stress Test: Palpitations, chest pain. Cardiac History and Risk Factors: Hypertension. Resting 12 - Lead Electrocardiogram: Normal sinus rhythm, nonspecific ST/T abnormality in lead III. Stress Test: Protocol: Jose protocol. Exercise Capacity: Poor. Blood Pressure Response: Resting hypertension, appropriate blood pressure response to exercise. Rhythm: Sinus rhythm with no arrhythmias. ST - Response: No ischemic ST changes. Patient Response: No chest pain or shortness of breath. Interpretation: 1. No evidence of ischemic ECG changes during treadmill exercise. 2. Mi treadmill score of +5 is associated with low risk for long-term cardiac events.
== END 2025-02-05 11:42 | disposition home or self-care (01) ==
LOC: CARD 11:41
PROVIDERS: PCP Family Medicine; Visit Provider Internal Medicine Interventional Cardiology
DX: R07.89 Other chest pain (principal)
CPT/HCPCS: 93017

== ENCOUNTER 2025-02-12 12:12 | Outpatient (OUT) | payer BC, OTHER, SELFPAY ==
--- OUTSIDE RECORDS SUMMARY | 2013-12-28 10:30 | XMS_ITS | Encounter Summary ---
Author Organization [facility] Address [address] [place] [address] Care Team Providers Care Qa Architect Name Role Phone Unavailable Primary Care Provider Unavailabl e Encounter Details Date Type Department Care Team (Late st Contact Info) Description 12/28/2013 10:30 AM EDT Hospital Encounter [facility] [address] [place] [address] Tamie Wei MD [address] [place] [address] Social History Tobacco Use Types Packs/Day Years Used Date Smoking Tobacco: Every Day Cigarettes Smokeless Tobacco: Never Alcohol Use Standard Drinks/Week Comments Yes 0 (1 standard drink = 0.6 oz pur e alcohol) social Comments No Sex and Gender Information Value Date Recorded Sex Assigned at Not on file Legal Sex Female 12:03 AM EST Gender Identity Not on file Sexual Orientation Not on file documented as of this encounter Plan of Treatment Not on file documented as of this encounter Visit Diagnoses Not on filedocumented in this encounter
--- OUTSIDE RECORDS SUMMARY | 2025-02-07 09:00 | XMS_ITS | Encounter Summary ---
Author Organization [facility] Address [address] [facility] [place] [address] Care Team Providers Care Secretary To The Vice President Name Role Phone Kimberly Arauz MD Primary Care Provider [phone] Gonzales Still LPC Unavailable Unava ilable Reason for Visit * Reason Comments Follow-up PTSD (Post-Traumatic Stress Disorder) Anxiety Encounter Details Date Type Department Care Team (Latest Contact Info) Description 02/07/2025 9:00 AM EDT Clinical Support [facility] [address] [facility] [address] [place] [address] Gonzales Still LPC PTSD (post-traumatic stress disorder) ; Generalized anxiety disorder with panic attacks Social History Tobacco Use Types Packs/Day Years [...] Care Team (Late st Contact Info) Description 02/14/2025 1:00 PM EDT Telemedicine [facility] [address] [place] [address] Gonzales Still LPC 02/15/2025 2:30 PM EDT Office Visit [facility] FM [address] [facility] 110 [place] [address] Kimberly Arauz MD [address] [facility] 110 [place] [address] documented as of this encounter Visit Diagnoses Diagnosis PTSD (post-traumatic stress disorder) Posttraumatic stress disorder Generalized anxiety disorder with panic attacks documented in this encounter Care Teams Secretary To The Vice President Relationship Specialty Start Date End Date Kimberly Arauz MD [address] [facility] 110 [place] [address] PCP - General Family Medicine 01/20/23 Gonzales Still LPC Bookkeeping Assistant Sales Engagement Executive 10/02/24 documented as of this encounter
--- OUTSIDE RECORDS SUMMARY | 2025-02-12 12:15 | XMS_ITS | Encounter Summary ---
Author Organization [facility] Address [address] [place] [address] Care Team Providers Care Anesthetist Name Role Phone Kimberly Blancas MD Primary Care Provider [phone] Gonzales Still AIR ANALYSIS ENGINEERING TECHNICIAN Unavailable Unava ilable Encounter Details Date [...] Department Care Team (Late Contact Info) Description 02/14/2025 1:00 PM EDT Telemedicine [facility] [address] [facility] [address] [place] [address] Gonzales Still LPC 02/15/2025 2:30 PM EDT Office Visit [facility] [address] [facility] 110 [place] [id number] Kimberly Blancas MD 112 [facility] 110 [place] [address] documented as of this encounter Procedures Procedure Name Priority Date/Time Associated Diagnosis Comments US PELVIS W/ TRANSVAGINAL 06/01/2023 1:12 PM EDT documented in this encounter Results * US PELVIS W/ TRANSVAGINAL (06/01/2023 1:12 PM EDT) Anatomical Region Laterality Modality Other 06/01/2023 1:12 PM EDT Narrative 06/01/2023 1:12 PM EDT The [address] [address] Ultrasound Report Signed Patient: Anabel Fatima MR#: [id number] : 1995 Acct:[id number] Age/Sex: 27 / F ADM Date: 06/01/23 Loc: US Attending Dr: Timmy Smiley D.O. Ordering Physician: Timmy Smiley D.O. Date of Service: 06/01/23 Procedure(s): US pelvis w/ transvaginal Accession Number(s): [id number] cc: KIMBERLY BLANCAS ; Timmy Smiley D.O. The [address] [address] Patient Name: ANABEL FATIMA MRN: [id number] date: 1995 Sex: F Assigned Patient Location: US Current Patient Location: US Accession/Order Number: [id number] Exam Date: 06/01/2023 10:58 Report Date: 06/01/2023 [...] Dictated By: Alvaro Willett Signed By: 06/01/23 131 DD/ 11 TD/TT: Tool And Die Machinist: Procedure Note Radiology, Radiologist, - 06/01/2023 [place] [address] Ultrasound Report Signed Patient: Anabel Fatima JMR#: [id number] : 1995Acct:[id number] Age/Sex: 27 / FADM Date: 06/01/23 Loc: US Attending Dr: Timmy Smiley D.O. Ordering Physician: Timmy Smiley D.O. Date of Service: 06/01/23 Procedure(s): US pelvis w/ transvaginal Accession Number(s): [id number] cc: KIMBERLY BLANCAS ; Timmy Smiley D.O. The [place] [id number] Patient Name: ANABEL FATIMA MRN: [id number] date: 1995 Sex: F Assigned Patient Location: US Current Patient Location: US Accession/Order Number: [id number] Exam Date: 06/01/2023 10:58 Report Date: 06/01/2023 [...] 13:12 Dictated By: Alvaro Willett Signed By:06/01/23 1315 DD/ 11 TD/TT: Tool And Die Machinist: us Generic External Data Provider [facility] Final Result documented in this encounter Visit Diagnoses Not on filedocumented in this encounter Care Teams Anesthetist Relationship Specialty Start Date End Date Kimberly Blancas MD [address] [place] [address] PCP - General Family Medicine 01/20/23 Gonzales Still LPC [employer] Intern 10/02/24 documented as of this encounter
--- OUTSIDE RECORDS SUMMARY | 2025-02-12 12:15 | XMS_ITS | Encounter Summary ---
Author Organization [facility] Address [address] [place] [address] Care Team Providers Care Adjunct Professor Of Voice Name Role Phone Kimberly Arauz MD Primary Care Provider [phone] Gonzales Still HOSPITAL ATTENDANT Unavailable Unava ilable Encounter Details Date Type Department Care Team (Late Contact Info) Description 01/25/2023 Orders Only [facility] [address] [facility] [address] [place] [address] Minoo Barbour PA [address] [facility] 110 [place] [address] Social History Tobacco Use Types Packs/Day Years [...] Description 02/14/2025 1:00 PM EDT Telemedicine [facility] [address] [place] [address] Gonzales Still LPC 02/15/2025 2:30 PM EDT Office Visit [facility] [address] [facility] 110 [place] [address] Kimberly Arauz MD [address] [facility] 110 [place] [address] documented as of this encounter Procedures Procedure Name Priority Date/Time Associated Diagnosis Comments SCANNED LABS Routine 01/23/2023 11:05 AM EDT documented in this encounter Results * SCANNED LABS (01/23/2023 11:05 AM EDT) [facility] CHG PERFORMABLES Final Res ult documented in this encounter Visit Diagnoses Not on filedocumented in this encounter Care Teams Adjunct Professor Of Voice Relationship Specialty Start Date End Date Kimberly Arauz MD [address] [facility] 110 [place] [address] PCP - General Family Medicine 01/20/23 Gonzales Still LPC Supervisor [employer] Ex Assistant/Program Director 10/02/24 documented as of this encounter
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
--- OUTSIDE RECORDS SUMMARY | 2025-02-12 12:15 | XMS_ITS | Encounter Summary ---
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 Unavailable Unava ilable Encounter Details Date Type Department Care Team (Late st Contact Info) Description 02/04/2024 Clinisync Result Encounter [facility] External Department Unsolicited Jake Barbour, DENISSE 112 [facility] 110 [place] [address] Social History Tobacco Use Types Packs/Day Years [...] 02/14/2025 1:00 PM EDT Telemedicine [facility] [address] [place] [address] Gonzales Still LPC 02/15/2025 2:30 PM EDT Office Visit [facility] [address] [facility] 110 [place] [address] Kimberly Blancas MD [address] [facility] 110 [place], [place] [phone] documented as of this encounter Procedures Procedure Name Priority Date/Time Associated Diagnosis Comments US BIOPSY FNA 02/04/2024 1:28 PM EDT documented in this encounter Results * US BIOPSY FNA (02/04/2024 1:28 PM EDT) Anatomical Region Laterality Modality Other 02/04/2024 1:28 PM EDT Narrative 02/04/2024 1:31 PM EDT [address] [address] Ultrasound Report Signed Patient: Anabel Fatima MR#: [id number] : 1995 Acct:[id number] Age/Sex: 28 / F ADM Date: 02/04/24 Loc: US Attending Dr: JAKE BARBOUR Ordering Physician: JAKE BARBOUR Date of Service: 02/04/24 Procedure(s): US biopsy FNA Accession Number(s): [id number] cc: KIMBERLY BLANCAS KAREN M [address] [address] Patient Name: ANABEL FATIMA MRN: [id number] date: 1995 Sex: F Assigned Patient Location: US Current Patient Location: US Accession/Order Number: [id number] Exam Date: 02/04/2024 12:25 Report Date: 02/04/2024 [...] By: Kati Bradshaw M.D. Signed By: 02/04/24 1332 DD/ 1328 TD/TT: Basting Cleaner: Procedure Note Radiology, Radiologist, MD - 02/04/2024 [place] [address] Ultrasound Report Signed Patient: Anabel Fatima JMR#: [id number] : 1995Acct:[id number] Age/Sex: Date: 02/04/24 Loc: US Attending Dr: JAKE BARBOUR Ordering Physician: JAKE BARBOUR Date of Service: 02/04/24 Procedure(s): US biopsy FNA Accession Number(s): [id number] cc: KIMBERLY BLANCAS KAREN M [place] [id number] Patient Name: ANABEL FATIMA MRN: [id number] date: 1995 Sex: F Assigned Patient Location: US Current Patient Location: US Accession/Order Number: [id number] Exam Date: 02/04/2024 12:25 Report Date: 02/04/2024 [...] M.D. Signed By:02/04/24 1331 DD/ 1328 TD/TT: Basting Cleaner: us Jake [facility] Final Result documented in this encounter Visit Diagnoses Not on filedocumented in this encounter Care Teams Liquid Waste Treatment Plant Operator Relationship Specialty Start Date End Date Kimberly Blancas MD [address] [place] [address] PCP - General Family Medicine 01/20/23 Gonzales Still LPC Director Of Grants Lead Material Handler 10/02/24 documented as of this encounter
--- OUTSIDE RECORDS SUMMARY | 2025-02-12 12:15 | XMS_ITS | Encounter Summary ---
Author Organization [facility] Address [address] [place] [address] Care Team Providers Care Lactation Nurse Name Role Phone Kimberly Arauz MD Primary Care Provider [phone] Gonzales Still LOTTERY OFFICE MANAGER Unavailable Unava ilable Encounter Details Date Type Department Care Team (Late Contact Info) Description 01/21/2023 Abstract [facility] [address] [facility] 110 [place] [address] Kimberly Arauz MD 112 [facility] 110 [place], [place] [phone] Social History Tobacco Use Types Packs/Day Years [...] Description 02/14/2025 1:00 PM EDT Telemedicine [facility] [address] [place] [address] Gonzales Still LPC 02/15/2025 2:30 PM EDT Office Visit [facility] [address] [facility] 110 [place] [address] Kimberly Arauz MD [address] [place] [facility] 110 [place] [address] documented as of this encounter Visit Diagnoses Not on filedocumented in this encounter Care Teams Lactation Nurse Relationship Specialty Start Date End Date Kimberly Arauz MD [address] [place] [facility] 110 [place], [place] [id number] PCP - General Family Medicine 01/20/23 Gonzales Still LPC Animal Stunner Auditor Medical Claims 10/02/24 documented as of this encounter
--- OUTSIDE RECORDS SUMMARY | 2025-02-12 12:15 | XMS_ITS | Clinical Summary ---
Author Organization [facility] [employer] Address [address] [place] [address] Care Team Providers Care Medicine And Health Service Manager Name Role Phone Kimberly Arauz MD Primary Care Provider [phone] Allergies Active Allergy Reactions Criticality Noted Date [...] Vaccine ( - season) 2024 Flu vaccine (#1) 03/09/2025 Hib vaccine Completed 05/27/1999, 09/1997, 04/19/1998, Additional history exists Polio vaccine Completed 10/17/2002, 04/09, 02/11/1998 HPV vaccine Completed 08/29/2013, 02/06, 12/13/2012 Hepatitis A vaccine Completed 08/29/2013, 3 Meningococcal (ACWY) vaccine Aged Out 12/07/2017, 04/04/2010 No longer eligible based on patient's age to complete this topic Meningococcal B vaccine Aged Out No l onger eligible based on patient's age to complete this topic [place] [address] [place] [address] Care Teams Medicine And Health Service Manager Relationship Specialty Start Date End Date Kimberly Arauz MD 112 [facility] 110 [place] [address] PCP - General Family Medicine 05/19/24
--- OUTSIDE RECORDS SUMMARY | 2025-02-12 12:15 | XMS_ITS | Encounter Summary ---
Author Organization [facility] Address [address] [place] [address] Care Team Providers Care Manager Ui Name Role Phone Kimberly Arauz MD Primary Care Provider [phone] Gonzales Still GRANITE CUTTER APPRENTICE Unavailable Unava ilable Encounter Details Date Type Department Care Team (Late st Contact Info) Description 10/18/2023 Abstract [facility] [address] [facility] 110 [place] [address] Kimberly Arauz MD 112 [facility] 110 [place], [place] [phone] Social History Tobacco Use Types Packs/Day Years [...] SWS [address] [place] [phone] Gonzales Still LPC 02/15/2025 2:30 PM EDT Office Visit [facility] [address] [facility] 110 [place] [address] Kimberly Arauz MD [address] [facility] 110 [place] [address] documented as of this encounter Visit Diagnoses Not on filedocumented in this encounter Care Teams Manager Ui Relationship Specialty Start Date End Date Kimberly Arauz MD [address] [facility] 110 [place] [address] PCP - General Family Medicine 01/20/23 Gonzales Still LPC Tree Fruit [employer] Nut Crops Farmer Brain Wave Technician 10/02/24 documented as of this encounter
--- OUTSIDE RECORDS SUMMARY | 2025-02-12 12:15 | XMS_ITS | Encounter Summary ---
Author Organization [facility] Address [address] [place] [address] Care Team Providers Care Combat Engineer Name Role Phone Kimberly Arauz MD Primary Care Provider [phone] Gonzales Still GANDY DANCER Unavailable Unava ilable Encounter Details Date Type Department Care Team ([facility] Contact Info) Description 06/02/2023 Orders Only [facility] [address] [place] [address] A, Unknown Practice [address] [place], [place] [phone] Social History Tobacco Use Types Packs/Day Years [...] Upcoming Encounters Date Type Department Care Team ([facility] Contact Info) Description 02/14/2025 1:00 PM EDT Telemedicine [facility] [address] [place] [phone] Gonzales Still LPC 02/15/2025 2:30 PM EDT Office Visit [facility] [address] [facility] 110 [place] [address] Kimberly Arauz MD [address] [facility] 110 [place] [address] documented as of this encounter Procedures Procedure [...] on filedocumented in this encounter Care Teams Combat Engineer Relationship Specialty Start Date End Date Kimberly Arauz MD [address] [facility] 110 [place] [address] PCP - General Family Medicine 01/20/23 Gonzales Still LPC Expanded Function Dental Assistant Fuel Efficient Automobile Designer 10/02/24 documented as of this encounter
--- OUTSIDE RECORDS SUMMARY | 2025-02-12 12:15 | XMS_ITS | Encounter Summary ---
Author Organization [facility] Address [address] [facility] [place] [address] Care Team Providers Care Vp Strategy Name Role Phone Kimberly Arauz MD Primary Care Provider [phone] Gonzales Still LIBRARY CIRCULATION ASSISTANT Unavailable Unava ilable Encounter Details Date Type Department Care Team (Latest Contact Info) Description 02/07/2025 Travel Social History Tobacco Use Types Packs/Day [...] Description 02/14/2025 1:00 PM EDT Telemedicine [facility] [address] [facility] [address] [place] [address] Gonzales Still LPC 02/15/2025 2:30 PM EDT Office Visit [facility] [address] [facility] 110 [place] [address] Kimberly Arauz MD 112 [facility] 110 [place] [address] documented as of this encounter Visit Diagnoses Not on filedocumented in this encounter Care Teams Vp Strategy Relationship Specialty Start Date End Date Kimberly Arauz MD 112 [facility] 110 [place] [address] PCP - General Family Medicine 01/20/23 Gonzales Still LPC Facility Attendant Shot Examiner 10/02/24 documented as of this encounter
--- OUTSIDE RECORDS SUMMARY | 2025-02-12 12:15 | XMS_ITS | Encounter Summary ---
Author Organization [facility] Address [address] [place] [address] Care Team Providers Care Wire Walker Name Role Phone Kimberly Arauz MD Primary Care Provider [phone] Gonzales Still SPIKEMAKING SUPERVISOR Unavailable Unava ilable Encounter Details Date Type Department Care Team (Late st Contact Info) Description 11/20/2024 Abstract [facility] [address] [place] [phone] Timmy Smiley, DO [address] [place], [place] [phone] Social History Tobacco Use Types Packs/Day Years [...] BH [address] [place] [address] Gonzales Still LPC 02/15/2025 2:30 PM EDT Office Visit [facility] [address] [facility] 110 [place] [address] Kimberly Arauz MD [address] [facility] 110 [place] [address] documented as of this encounter Visit Diagnoses Not on filedocumented in this encounter Care Teams Wire Walker Relationship Specialty Start Date End Date Kimberly Arauz MD [address] [facility] 110 [place] [address] PCP - General Family Medicine 01/20/23 Gonzales Still LPC Farm Labor Contractor Tube Building Machine Operator 10/02/24 documented as of this encounter
--- OUTSIDE RECORDS SUMMARY | 2025-02-12 12:15 | XMS_ITS | Clinical Summary ---
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 if needed. us Mary SALCEDO LAB BLOOD ORDERABLE S Final Result [facility] [address] [place] [address], [place] [phone] * (ABNORMAL) CBC without diff (12/12/2024 1:25 AM EDT) Only the most recent of4 resultswithin the time period is included. WBC 12.7(H) 4 - 11 x10E9/L 12/12/2024 2:38 AM EDT [facility] RBC Count 4.10 3.8 - 5.2 X10E12/L 12/12/2024 2:38 AM EDT [facility] Hemoglobin 12.1 11.7 - 15.5 g/dL 12/12/2024 2:38 AM EDT [facility] Hematocrit 35.8 35 - 47 % 12/12/2024 2:38 AM EDT [facility] MCV 87 80 - 100 fL 12/12/2024 2:38 AM EDT [facility] MCH 29.6 27 - 34 pg 12/12/2024 2:38 AM EDT [facility] MCHC 33.9 32 - 36 g/dL 12/12/2024 2:38 AM EDT [facility] RDW 13.3 11.5 - 15 % 12/12/2024 2:38 AM EDT [facility] Platelet Count 421 150 - 450 X10E9/L 12/12/2024 2:38 AM EDT [facility] MPV 9.1 7 - 12 fL 12/12/2024 2:38 AM EDT [facility] Blood Venous blood / Unknown 12/12/2024 1:25 AM EDT 12/12/2024 1:25 AM EDT Mary SALCEDO LAB BLOOD ORDERABLE S Final Result [facility] [address] [place] [address], * Lipase (12/12/2024 1:25 AM EDT) Only the most recent of10 resultswithin the time period is included. LIPASE 47 11 - 82 U/L 12/12/2024 2:45 AM EDT [facility] Blood Venous blood / Unknown 12/12/2024 1:25 AM EDT 12/12/2024 1:25 AM EDT Tyler Anderson MD LAB BLOOD ORDERABLES Final Re sult Performing Organization Address City/[facility]/ZIP Co de Phone Number [facility] [address] [place] [address], [place] [phone] * (ABNORMAL) Bilirubin, direct (12/12/2024 1:25 AM EDT) BILIRUBIN,DIRE CT 1.3(H) <=0.4 mg/dL 12/12/2024 2:45 AM EDT [facility] Blood Venous blood / Unknown 12/12/2024 1:25 AM EDT 12/12/2024 1:25 AM EDT us Tyler Anderson MD LAB BLOOD ORDERABLES Final Re sult [facility] [address] [place] [address], * Amylase (12/12/2024 1:25 AM EDT) Only the most recent of10 resultswithin the time period is included. AMYLASE 53 28 - 100 U/L 12/12/2024 2:45 AM EDT [facility] Blood Venous blood / Unknown 12/12/2024 1:25 AM EDT 12/12/2024 1:25 AM EDT Tyler Anderson MD LAB BLOOD ORDERABLES Final Re sult [facility] [address] [place] [address], * Landin Top On Ice (12/12/2024 1:22 AM EDT) Extra Tube Auto Resulted 12/12/2024 3:02 AM EDT [facility] Blood Venous blood / Unknown 12/12/2024 1:22 AM EDT 12/12/2024 2:11 AM EDT us Stalin Marie DO LAB BLOOD ORDERABLES Final Resu lt [facility] [address] [place] [address], * (ABNORMAL) Blood Gas, Arterial (12/11/2024 11:59 PM EDT) Only the most recent of2 resultswithin the time period is included. Sample type ARTERIAL 12/12/2024 12:10 AM EDT [facility] pH Christine. For Temp 7.473 12/12/2024 12:10 AM EDT [facility] pCO2 Christine. For Temp 34.0 mmHg 12/12/2024 12:10 AM EDT [facility] pO2 Christine. For Temp 61 mmHg 12/12/2024 12:10 AM EDT [facility] pH, Arterial 7.475(H) 7.350 - 7.450 12/12/2024 12:10 AM EDT [facility] pCO2, Arterial 33.9(L) 35.0 - 45.0 mmHg 12/12/2024 12:10 AM EDT [facility] PO2, Arterial 61(L) 80 - 100 mmHg 12/12/2024 12:10 AM EDT [facility] Base, Excess 2.0 0.0 - 2.0 mmol/L 12/12/2024 12:10 AM T [facility] HCO3, Arterial 24.9 22.0 - 26.0 mmol/L 12/12/2024 12:10 AM T [facility] %O2 Saturation, Arterial 93.0 >90.0 % 12/12/2024 12:10 AM T [facility] Joaquin's test Pass 12/12/2024 12:10 AM T [facility] SPO2 94 % 12/12/2024 12:10 AM [facility] Sample site R Rad 12/12/2024 12:10 AM [facility] Insp. O2 conc. 21 % 12/12/2024 12:10 AM [facility] Source Of Oxygen Room Air 12/12/2024 12:10 AM [facility] arterial (Blood, Arterial) 12/11/2024 11:59 PM EDT 12/12/2024 12:10 AM EDT us Stalin Marie DO LAB BLOOD ORDERABLES Final Resu lt [facility] [address] [place] [address], * Hemoglobin and hematocrit, blood (12/11/2024 4:43 PM EDT) Only the most recent of8 resultswithin the time period is included. Hemoglobin 13.1 11.7 - 15.5 g/dL 12/11/2024 5:06 PM EDT [facility] Hematocrit 37.9 35 - 47 % 12/11/2024 5:06 PM EDT [facility] Blood Venous blood / Unknown 12/11/2024 4:43 PM EDT 12/11/2024 4:43 PM EDT us Reji Locke MD LAB BLOOD ORDERABLES Final Resu lt [facility] [address] [place] [address], [place] [phone] * (ABNORMAL) Liver panel (12/11/2024 5:42 AM EDT) Only the most recent of8 resultswithin the time period is included. TOTAL PROTEIN 6.8 6.0 - 8.0 g/dL 12/11/2024 7:18 AM EDT [facility] ALBUMIN 3.4 3.2 - 5.3 g/dL 12/11/2024 7:18 AM EDT [facility] BILIRUBIN,TOTAL 3.1(H) 0.3 - 1.2 mg/dL 12/11/2024 7:18 AM EDT [facility] ALKALINE PHOSPHATASE 298(H) 39 - 130 U/L 12/11/2024 7:18 AM EDT [facility] AST 78(H) <=41 U/L 12/11/2024 7:18 AM EDT [facility] ALT 110(H) <=31 U/L 12/11/2024 7:18 AM EDT [facility] BILIRUBIN,DIRECT 1.3(H) <=0.4 mg/dL 12/11/2024 7:18 AM EDT [facility] Comment:R-Specimen slightly hemolyzed, results decreased Blood Venous blood / Unknown 12/11/2024 5:42 AM EDT 12/11/2024 5:42 AM EDT us Tyler Anderson MD LAB BLOOD ORDERABLES Final Re sult [facility] [address] [place] [address], [place] [phone] * (ABNORMAL) Basic Metabolic Panel (12/11/2024 5:42 AM EDT) Only the most recent of8 resultswithin the time period is included. SODIUM 131(L) 134 - 146 mmol/L 12/11/2024 7:05 AM EDT [facility] POTASSIUM 3.5 3.5 - 5.0 mmol/L 12/11/2024 7:05 AM EDT [facility] CHLORIDE 95(L) 98 - 109 mmol/L 12/11/2024 7:05 AM EDT [facility] CARBON DIOXIDE 26 22 - 32 mmol/L 12/11/2024 7:05 AM EDT [facility] ANION GAP 10 5 - 15 mmol/L 12/11/2024 7:05 AM EDT [facility] BLOOD UREA NITROGEN 5 5 - 23 mg/dL 12/11/2024 7:05 AM EDT [facility] CREATININE 0.68 0.40 - 1.00 mg/dL 12/11/2024 7:05 AM EDT [facility] Comment:METHOD TRACEABLE TO IDMS STANDARD GLUCOSE 87 65 - 99 mg/dL 12/11/2024 7:05 AM EDT [facility] CALCIUM 9.4 8.5 - 10.5 mg/dL 12/11/2024 7:05 AM EDT [facility] EGFR Non-Race Dependent >90 >=60 ml/min/1.7 3sq.m 12/11/2024 7:05 AM EDT [facility] Comment: Reported eGFR is based on the CKD-EPI 2020 equation that does not use a race coefficient. Blood 12/11/2024 5:42 AM EDT 12/11/2024 5:42 AM EDT Cynthia Buckley DOBBY LOOM CHAIN PEGGER-FORGE HELPER LAB BLOOD ORDERABLES Final Result [facility] [address] [place] [address], [place] [phone] * X-ray abdomen ap 1 view (12/10/2024 [...] Solis MD on 12/10/2024 8:47 AM [facility] DO IMG DIAGNOSTIC IMAGING ORDERABLE S Final Result * CT urogram (12/07/2024 4:14 PM EDT) Anatomical Region Laterality Modality Body, Abdomen, Body Covera N/A Compu imani Tomography 12/08/2024 7:29 AM EDT Addenda Addendum by Zane Ramirez MD on 12/08/2024 8:05 AM EDT *ADDENDUM*I sent a chat message which was confirmed with a reply from physician assistant tennis professional DENISSE Oviedo at approximately 8:00 AM and [...] the phone number besidetheir name. Elayne SALCEDO CV VASCULAR ORDERABLES Final Result * (ABNORMAL) Troponin I, High Sensitivity (12/07/2024 6:23 AM EDT) Only the most recent of3 resultswithin the time period is included. TROPONIN I, HIGH SENSITIVITY 48(H) <16 ng/L 12/07/2024 8:13 AM EDT [facility] Blood (Other) 12/07/2024 6:2 3 AM EDT 12/07/2024 6:23 AM EDT Narrative [facility] - 12/07/2024 8:13 AM EDT Elevations of hs-Troponin may be due to causes other than myocardial ischemia. Recommend serial hs-Troponin testing be performed. For the initial evaluation and management of chest pain patients, refer to the algorithms linked below. Emergency Patient: [email or web address] [email or web address]: [email or web address] us Valentin Shankar MD LAB BLOOD ORDERABLES Final Resul t [facility] [address] [place] [address], [place] [phone] * X-ray abdomen NG Tube placement 1 [...] MD on 12/06/2024 5:43 AM Procedure Note Monyt Antonio MD - 12/06/2024 Clinical history: Orogastric [...] URINE Negative Negative 12/06/2024 1:41 AM EDT [facility] Urine (Urine, Indwelling Catheter) 12/06/2024 12:38 AM EDT 12/06/2024 1:16 AM EDT Bayron Cantu MD URINE ORDERABLES Final Result [facility] [address] [place] [address], [place] [phone] * X-ray shoulder left minimum 2 views [...] MD on 12/05/2024 8:33 AM Alexandra Marti DOBBY LOOM CHAIN PEGGER[employer]FORGE HELPER IMG DIAGNOSTIC IM AGING ORDERABLES Final Result * Fibrinogen (12/05/2024 3:31 AM EDT) Only the most recent of2 resultswithin the time period is included. FIBRINOGEN 357 190 - 480 mg/dL 12/05/2024 4:25 AM EDT [facility] Blood Venous blood / Unknown 12/05/2024 3:31 AM EDT 12/05/2024 3:32 AM EDT Sarahi Perez MD LAB BLOOD ORDERABLES Final Resul t [facility] [address] [place] [address], [place] [phone] * Echo complete W/O contrast (12/04/2024 6:22 PM EDT) LVOT stroke volume 72.26 ml XCELERA FS [...] Velocity Ratio 0.88 XCELERA Left Ventricle Mass 105.82289 [id number] 7 g XCELERA Interventricular Septum Diastolic Thickness [...] Mitral valve structure is normal. There is vpyjq-lz-hjgu regurgitation. There is no evidence of mitral [...] COMPARISON: None. TECHNIQUE: CTA chest obtained from [facility], labeled with patient's name and birthdate. Initial [...] COMPARISON: None. TECHNIQUE: CTA chest obtained from [facility], labeled withpatient's name and birthdate. Initial study [...] theunavailability of the original interpretation. [facility] may have access to information not available to us that could make adifference in this interpretation. We suggest that you obtain theoriginal interpretation from the site where the study was performed. Finalized by Nolberto Tinajero MD on 12/05/2024 8:54 AM Scotty Bal IMG CT ORDERABLES Final R esult * Light Blue Top (12/04/2024 12:16 PM EDT) [facility] Extra Tube Auto Resulted 12/04/2024 5:01 PM EDT [facility] Blood Venous blood / Unknown Venipuncture / Unknown 12/04/2024 12:16 PM EDT 12/04/2024 12:32 PM EDT Dmitri Shaikh MD LAB BLOOD ORDERABLES Final Re sult [facility] [address] [place] [address], * Phosphorus (12/04/2024 12:16 PM EDT) [facility] PHOSPHORUS 4.0 2.4 - 4.9 mg/dL 12/04/2024 1:25 PM EDT [facility] Blood Venous blood / Unknown Venipuncture / Unknown 12/04/2024 12:16 PM EDT 12/04/2024 12:30 PM EDT Tyler Anderson MD LAB BLOOD ORDERABLES Final Re sult [facility] [address] [place] [address], * Ionized calcium (12/04/2024 12:16 PM EDT) IONIZED CALCIUM - ICAN 4.9 4.5 - 5.3 mg/dL 12/04/2024 1:32 PM EDT [facility] Blood Venous blood / Unknown Venipuncture / Unknown 12/04/2024 12:16 PM EDT 12/04/2024 12:43 PM EDT Tyler Anderson MD LAB BLOOD ORDERABLES Final Re sult [facility] [address] [place] [address], * ABO Rh Repeat (12/04/2024 11:26 AM EDT) ABO A 12/04/2024 1:25 PM EDT [facility] RH Positive 12/04/2024 1:25 PM EDT [facility] Blood Venous blood / Unknown Venipuncture / Unknown 12/04/2024 11:26 AM EDT 12/04/2024 12:01 PM EDT Scotty Bal BLOOD BANK TEST ORDERABLE S Final Result [facility] BB - [facility] [address] [place] [address], [facility] [address] [place] [address], * Type and screen(includes indirect long) (12/04/2024 11:26 AM EDT) ABO A 12/04/2024 12:58 PM EDT [facility] RH Positive 12/04/2024 12:58 PM EDT [facility] Antibody Screen Negative 12/04/2024 12:58 PM EDT [facility] Blood Venous blood / Unknown Venipuncture / Unknown 12/04/2024 11:26 AM EDT 12/04/2024 12:01 PM EDT us Scotty Bal BLOOD BANK TEST ORDERABLE S Edited Result - Final [facility] [address] [place] [address], [facility] [address] [place] [address], * Ethanol (12/04/2024 11:26 AM EDT) ETHANOL <0.010 <=0.080 g/dL 12/04/2024 12:21 PM EDT [facility] Comment: This report is intended for use in clinical monitoring or management of patients. Blood Venous blood / Unknown 12/04/2024 11:26 AM EDT 12/04/2024 11:41 AM EDT Scotty Sheth [place] LAB BLOOD ORDERABLES Racquel l Result [facility] [address] [place] [address], [place] [phone] * (ABNORMAL) Urinalysis (12/04/2024 11:24 AM EDT) COLOR Yellow Yellow 12/04/2024 1:05 PM EDT [facility] TURBIDITY Clear Clear 12/04/2024 1:05 PM EDT [facility] SPECIFIC GRAVITY 1.010 1.003 - 1.035 12/04/2024 1:05 PM EDT [facility] NITRITE Negative Negative 12/04/2024 1:05 PM EDT [facility] PH,URINE 5.5 5.0 - 8.5 12/04/2024 1:05 PM EDT [facility] LEUKOCYTE ESTERASE Negative Negative 12/04/2024 1:05 PM EDT [facility] PROTEIN 50 mg/dL(A) Negative 12/04/2024 1:05 PM EDT [facility] KETONES (URINE) Negative Negative 1:05 PM EDT [facility] UROBILINOGEN <1.1 eu/dL <1.1 eu/dL 12/04/2024 1:05 PM EDT [facility] BILIRUBIN (URINE) Negative Negative 12/04/2024 1:05 PM EDT [facility] BLOOD/HGB Moderate(A) Negative 12/04/2024 1:05 PM EDT [facility] MUCOUS Present(A) None 12/04/2024 1:05 PM EDT [facility] R.B.CELLS 6(H) 0 - 5 12/04/2024 1:05 PM EDT [facility] SQUAMOUS EPITHELIUM 1 0 - 5 12/04/2024 1:05 PM EDT [facility] W.B.CELLS 0 0 - 5 12/04/2024 1:05 PM EDT [facility] GLUCOSE (URINE) 150 mg/dL(A) Negative 12/04/2024 1:05 PM EDT [facility] Urine 12/04/2024 11:2 4 AM EDT 12/04/2024 12:08 PM EDT Narrative [facility] - 12/04/2024 1:05 PM EDT Urine received without preservative. Delays in transport may affect results. Interpret with caution. A clinical correlation is recommended. us Scotty Bal URINE ORDERABLES Final Re sult [facility] [address] [place] [address], [place] [phone] * ED Fast Ultrasound (12/04/2024 11:10 AM [...] - 146 mmol/L 12/04/2024 11:22 AM EDT [facility] POC Potassium 4.2 3.5 - 5.0 mmol/L 12/04/2024 11:22 AM EDT [facility] POC Chloride 105 98 - 109 mmol/L 12/04/2024 11:22 AM EDT [facility] POC TCO2 24 22 - 32 mmol/L 12/04/2024 11:22 AM EDT [facility] POC Glucose 142(H) 65 - 99 mg/dL 12/04/2024 11:22 AM EDT [facility] POC BUN 19 6 - 23 mg/dL 12/04/2024 11:22 AM EDT [facility] POC Creatinine 0.9 0.4 - 1.0 mg/dL 12/04/2024 11:22 AM EDT [facility] POC Hematocrit 47 39 - 47 % 12/04/2024 11:22 AM T [facility] POC EGFR Non-Race Dependent 90 >=60 ml/min/1.7 3sq.m 12/04/2024 11:22 AM EDT [facility] Comment: Reported eGFR is based on the CKD-EPI 2020 equation that does not use a race coefficient. 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 Specialists at [facility] that performed the study may have [...] al Result from Last 3 Months Insurance [place] [employer] AN[place] AN[place] [employer] Advance Directives * Full Code (Latest Code Status on File) Date Activated Date Inactivated Comments 02/08/2025 8:41 PM 02/09/2025 6:09 PM * Full Code Date Activated Date Inactivated Comments 12/04/2024 12:12 PM 12/12/2024 5:51 PM Care Teams Underwriting Manager Relationship Specialty Start Date End Date Kimberly Arauz MD [address] [place] [id number] PCP - General Family Medicine 04/01/24
--- OUTSIDE RECORDS SUMMARY | 2025-02-12 12:15 | XMS_ITS | Encounter Summary ---
Author Organization [facility] Address [address] [place] [address] Care Team Providers Care Credit Portfolio Advisor Name Role Phone Kimberly Arauz MD Primary Care Provider [phone] [place] Still POLICE DETECTIVE Unavailable Unava ilable Encounter Details Date Type Department Care Team (Late st Contact Info) Description 02/15/2024 Orders Only [facility] [address] [place] [id number] Unallocated, Noms Provider, [address] [place], [place] [id number] Social History Tobacco Use Types Packs/Day Years [...] [address] [place] [phone] Gonzales Still LPC 02/15/2025 2:30 PM EDT Office Visit [facility] [address] [facility] [address] [place] [address] Kimberly Arauz MD [address] [facility] [address] [place] [address] documented as of this encounter Procedures Procedure Name Priority Date/Time Associated Diagnosis Comments US LOCAL BIOPSY Routine 02/15/2024 9:44 AM EDT documented in this encounter Results * US LOCAL BIOPSY (02/15/2024 9:44 AM EDT) Anatomical Region Laterality Modality Radiographic Alice ging us Noms Provider Unallocated MD IMG XR PROCEDURES F inal Result documented in this encounter Visit Diagnoses Not on filedocumented in this encounter Care Teams Credit Portfolio Advisor Relationship Specialty Start Date End Date Kimberly Arauz MD [address] [facility] [facility] [address] [place] [address] PCP - General Family Medicine 01/20/23 Gonzales Still LPC Genetic Physician Dag Coater 10/02/24 documented as of this encounter
--- OUTSIDE RECORDS SUMMARY | 2025-02-12 12:15 | XMS_ITS | Encounter Summary ---
Author Organization [facility] Address [address] [place] [address] Care Team Providers Care Home Staging Specialist Name Role Phone Kimberly Arauz MD Primary Care Provider [phone] Gonzales Still OFFICE MANAGER RECEPTIONIST Unavailable Unava ilable Encounter Details Date Type Department Care Team (Late st Contact Info) Description 02/07/2024 Orders Only [facility] [address] [place] [address] Minoo Barbour PA [address] [facility] 110 [place], [place] [phone] Lump of scalp Social History Tobacco Use [...] BH [address] [place] [address] Gonzales Still LPC 02/15/2025 2:30 PM EDT Office Visit [facility] [address] [facility] 110 [place] [address] Kimberly Arauz MD [address] [facility] 110 [place] [address] documented as of this encounter Visit Diagnoses Diagnosis Lump of scalp documented in this encounter Care Teams Home Staging Specialist Relationship Specialty Start Date End Date Kimberly Arauz MD [address] [facility] 110 [place] [address] PCP - General Family Medicine 01/20/23 Gonzales Still LPC Wastewater Supervisor Manager Sharepoint 10/02/24 documented as of this encounter
--- OUTSIDE RECORDS SUMMARY | 2025-02-12 12:15 | XMS_ITS | Encounter Summary ---
Author Organization [facility] Address [address] [place] [address] Care Team Providers Care Accounts Payable Representative Name Role Phone Kimberly Arauz MD Primary Care Provider [phone] Gonzales Still MANAGER TALENT MANAGEMENT Unavailable Unava ilable Encounter Details Date Type [...] [address] [place] [address] [place] [phone] JoaquinZoeyGonzales Emerson, MANAGER TALENT MANAGEMENT 02/15/2025 2:30 PM EDT Office Visit [facility] [address] [place] [address] [place] [phone] Kimberly Arauz MD [address] [place] [address] [place] [address] documented as of this encounter Procedures Procedure Name Priority Date/Time Associated Diagnosis Comments METANEPHRINES, FRAC., PL. FREE Routine 01/23/2025 5:04 PM EDT ALDOSTERONE LCMS, SERUM Routine 01/23/2025 4:40 PM EDT [facility] RENIN,PLASMA Routine 01/23/2025 4:40 PM EDT documented in this encounter Results * METANEPHRINES, FRAC., PL. FREE (01/23/2025 5:04 PM EDT) NORMETANEPHRINE, PL 118.9 0.0 - 210.1 pg/mL TBH Comment: This test was developed and its performance characteristics determined by [facility]. It has not been cleared or approved by the Food and Drug Administration. METANEPHRINE, PL 55.6 0.0 - 88.0 pg/mL [facility] Comment: This test was developed and its performance characteristics determined by [facility]. It has not been cleared or approved by the Food and Drug Administration. Performed at: [address] [id number] Rug Cleaner Hand: Ashwin Rahman MD, Phone: [phone] 01/23/2025 5:04 PM EDT 01/23/2025 5:09 PM EDT Narrative PADMINIISYNC - 02/07/2025 6:08 PM EDT us Generic External Data Provider LAB BLOOD ORDERAB LES Final Result CLINISYNC TB * (ABNORMAL) ALDOSTERONE LCMS, SERUM (01/23/2025 4:40 PM EDT) ALDOSTERONE LCMS, SERUM 32.5(A) 0.0 - 30.0 ng/dL TB Comment: This test was developed and its performance characteristics determined by [facility]. It has not been cleared or approved by the Food and Drug Administration. Performed at: [address] [id number] Rug Cleaner Hand: Ashwin Rahman MD, Phone: [phone] 01/23/2025 4:40 PM EDT 01/23/2025 4:44 PM EDT Narrative CLINISYNC - 01/28/2025 3:09 PM EDT Generic External Data Provider LAB BLOOD ORDERAB LES Final Result Performing Organization Address [facility] de Phone Number [facility] * (ABNORMAL) [facility]H RENIN,PLASMA (01/23/2025 4:40 PM EDT) RENIN ACTIVITY, PLASMA 17.193(A) 0.167 - 5.380 ng/mL/hr TB Comment: This test was developed and its performance characteristics determined by [facility]. It has not been cleared or approved by the Food and Drug Administration. Performed at: [address] [id number] Rug Cleaner Hand: Ashwin Rahman MD, Phone: [phone] 01/23/2025 4:40 PM EDT 01/23/2025 4:44 PM EDT Narrative CLINISYNC - 01/28/2025 2:09 PM EDT Generic External Data Provider CLINISYNC F inal Result Performing Organization Address [facility] Co de Phone Number [facility] documented in this encounter Visit Diagnoses Not on filedocumented in this encounter Care Teams Accounts Payable Representative Relationship Specialty Start Date End Date Kimberly Arauz MD [address] [place] [address] PCP - General Family Medicine 01/20/23 Gonzales Still LPC Coating Machine Operator Helper Instructor Industrial Design 10/02/24 documented as of this encounter
--- OUTSIDE RECORDS SUMMARY | 2025-02-12 12:15 | XMS_ITS | Encounter Summary ---
Author Organization [facility] Address [address] [place] [address] Care Team Providers Care Secretary Administrative Assistant Name Role Phone Kimberly Arauz MD Primary Care Provider [phone] Gonzales Still PMO PROJECT MANAGER Unavailable Unava ilable Encounter Details Date Type Department Care Team (Late Contact Info) Description 08/24/2024 Orders Only [facility] OB [address] [place] [address] Alison Murillo PR [address] [place] [address] Social History Tobacco Use Types Packs/Day Years [...] [address] [place] [address] Gonzales Still LPC 02/15/2025 2:30 PM EDT Office Visit [facility] 112 [facility] 110 [place] [address] Kimberly Arauz MD 112 [facility] 110 [place] [address] documented as of this encounter Procedures Procedure Name Priority Date/Time Associated Diagnosis Comments PAP SMEAR Routine 08/14/2024 12:00 AM EST documented in this encounter Results * Pap Smear (08/14/2024 12:00 AM EST) Swab Cervical swab / Unknown us Timmy Baljit DO LAB CYTOLOGY ORDERABLES Final Re sult EXTERNAL LAB documented in this encounter Visit Diagnoses Not on filedocumented in this encounter Care Teams Secretary Administrative Assistant Relationship Specialty Start Date End Date Kimberly Arauz MD 112 [facility] 110 [place] [address] PCP - General Family Medicine 01/20/23 Gonzales Still LPC Finished Garment Inspector Nuclear Plant Construction Worker 10/02/24 documented as of this encounter
--- OUTSIDE RECORDS SUMMARY | 2025-02-12 12:15 | XMS_ITS | Encounter Summary ---
Author Organization [facility] Address [address] [place] [address] Care Team Providers Care Body Sander Name Role Phone Kimberly Blancas MD Primary Care Provider [phone] Gonzales Still BUSINESS AND FINANCIAL COUNSEL Unavailable Unava ilable Encounter Details Date Type Department Care Team (Late Contact Info) Description 01/27/2024 Clinisync Result Encounter [facility] External Department Unsolicited Kimberly Blancas MD [address] [email or web address] 110 [place] [address] Social History Tobacco Use Types Packs/Day Years [...] [address] [place] [address] Gonzales Still LPC 02/15/2025 2:30 PM EDT Office Visit [facility] [address] [facility] 110 [place] [address] Kimberly Blancas MD [address] [facility] [[email or web address] 110 [place], [place] [phone] documented as of this encounter Procedures Procedure Name Priority Date/Time Associated Diagnosis Comments US SOFT TISSUE HEAD AND NECK 01/27/2024 11:10 AM EDT documented in this encounter Results * US SOFT TISSUE HEAD AND NECK (01/27/2024 11:10 AM EDT) Anatomical Region Laterality Modality Other 01/27/2024 11:1 0 AM EDT Narrative 01/27/2024 11:12 AM EDT [address] [address] Ultrasound Report Signed Patient: NAFISA ELLIOTT MR#: [id number] : 1995 Acct:[id number] Age/Sex: 28 / F ADM Date: 01/26/24 Loc: US Attending Dr: KIMBERLY BLANCAS Ordering Physician: KIMBERLY BLANCAS Date of Service: 01/26/24 Procedure(s): US soft tissue head and neck Accession Number(s): [id number] cc: KIMBERLY BLANCAS [address] [address] Patient Name: NAFISA ELLIOTT MRN: [id number] date: 1995 Sex: F Assigned Patient Location: US Current Patient Location: Accession/Order Number: [id number] Exam Date: 01/26/2024 09:35 Report Date: 01/27/2024 [...] Signed By: 01/27/24 1112 DD/ 1110 TD/TT: Rubber Cutter: Procedure Note Radiology, Radiologist, MD - 01/27/2024 [place] [address] Ultrasound Report Signed Patient: NAFISA ELLIOTT R#: [id number] : 1995Acct:[id number] Age/Sex: Date: 01/26/24 Loc: US Attending Dr: KIMBERLY BLANCAS Ordering Physician: KIMBERLY BLANCAS Date of Service: 01/26/24 Procedure(s): US soft tissue head and neck Accession Number(s): [id number] cc: KIMBERLY BLANCAS [place] [address] Patient Name: NAFISA ELLIOTT MRN: [id number] date: 1995 Sex: F Assigned Patient Location: US Current Patient Location: Accession/Order Number: [id number] Exam Date: 01/26/2024 09:35 Report Date: 01/27/2024 [...] M.D. Signed By:01/27/24 1112 DD/ 1110 TD/TT: Rubber Cutter: us Kimberly Blancas MD [facility] IMAGING Final Result documented in this encounter Visit Diagnoses Not on filedocumented in this encounter Care Teams Body Sander Relationship Specialty Start Date End Date Kimberly Blancas MD [address] [address] PCP - General Family Medicine 01/20/23 Gonzales Still LPC Snagger Relationship Advisor 10/02/24 documented as of this encounter
--- OUTSIDE RECORDS SUMMARY | 2025-02-12 12:15 | XMS_ITS | Clinical Summary ---
Author Organization [facility] Address [address] [place] [address] Phone Care Team Providers Care Cable Tender Name Role Phone Unavailable Primary Care Provider [...] Vaccines (1 - Tdap) 12/03/2019 COVID-19 Vaccine (1 - 2023-2 5 season) 2024 Influenza Vaccine (#1) 2025 Zoster Vaccines (1 of 2) 12/03/2047 [...]
--- OUTSIDE RECORDS SUMMARY | 2025-02-12 12:15 | XMS_ITS | Encounter Summary ---
Author Organization [employer] tem Address [facility]-[id number] [address] [place] [address] Care Team Providers Care Fitness Center Attendant Name Role Phone Kimberly Arauz MD Primary Care Provider [phone] Encounter Details Date Type Department Care Team (Latest Contact Info) Description 02/08/2025 Travel Social History Tobacco Use Types Packs/Day Years Used Date Smoking Tobacco: Every Day Cigarettes Smokeless Tobacco: Never Comments:Has been smoking si nce age 19 Alcohol Use Standard Drinks/Week Comments Not Currently 0 (1 standard drink = 0.6 oz pur e alcohol) [facility] Utilities Answer Date Recorded In the past [...] often do you attend chur ch or moravian services? More than 4 times per year 02/08/2025 Do you belong to any clubs o r organizations such as episcopalian groups, unions, fraternal or athletic groups, or [...] Answer Date Recorded Total Score 0 02/08/2025 [facility] - Occupational Stress [...] PM EDT Office Visit [facility] [place] [address] [place] [address] Carole Tyson, [address] [facility] [address] [place] [address] documented as of this encounter Goals Goal Patient Goal Type Associated Problems Recent Progress Patient-Stated? Author Safe discharge General Yes Mia Castro, LUIS FELIPE Note: Evaluation of progress towards goal: Pt will be open to safe discharge recs. documented as of this encounter Visit Diagnoses Not on filedocumented in this encounter Additional Health Concerns Assessment Noted Time PHQ-9 Depression Total Score: 0 02/09/20 25 10:15 PM EDT documented as of this encounter Care Teams Fitness Center Attendant Relationship Specialty Start Date End Date Kimberly Arauz MD [address] [place] [place] [address] PCP - General Family Medicine 04/01/24 documented as of this encounter
--- OUTSIDE RECORDS SUMMARY | 2025-02-12 12:15 | XMS_ITS | Encounter Summary ---
Author Organization [employer] tem Address [facility]-[id number] [address] [place] [address] Care Team Providers Care Joiner Apprentice Name Role Phone Kimberly Arauz MD Primary Care Provider [phone] Reason for Referral * Diagnostic Imaging (Routine) - Pending Review Specialty Diagnoses / Procedures Referred By Contac t Referred To Contact Radiology Diagnoses Pain Procedures CT angiogram chest [facility] [address] [place] [phone] Phone: tel: fax: Referral ID Status Reason Start Date Expiration Date V isits Requested Visits Authorized [id number] Pending Review 12/04/2024 12/04/2025 1 1 * Diagnostic Imaging (Routine) - Pending Review Specialty Diagnoses / Procedures Referred By Contac t Referred To Contact Radiology Diagnoses Pain Procedures CT brain without contrast [facility] [place] [address] Phone: tel: fax: Referral ID Status Reason Start Date Expiration Date V isits Requested Visits Authorized [id number] Pending Review 12/04/2024 12/04/2025 1 1 * Diagnostic Imaging (Routine) - Pending Review Specialty Diagnoses / Procedures Referred By Contac t Referred To Contact Radiology Diagnoses Pain Procedures CT cervical spine without contrast [facility] [address] [place] [phone] Phone: tel: fax: Referral ID Status Reason Start Date Expiration Date V isits Requested Visits Authorized [id number] Pending Review 12/04/2024 12/04/2025 1 1 * Diagnostic Imaging (Routine) - Pending Review Specialty Diagnoses / Procedures Referred By Contac t Referred To Contact Radiology Diagnoses Pain Procedures CT angiogram abdomen and pelvis [facility] [address] [place] [phone] Phone: tel: fax: Referral ID Status Reason Start Date Expiration Date V isits Requested Visits Authorized [id number] Pending Review 12/04/2024 12/04/2025 1 1 Encounter Details Date Type Department Care Team (Late st Contact Info) Description 12/04/2024 Orders Only [facility] [address] [place] [phone] Transcribe, Orders Support User Pain (Primary Dx) Social History Tobacco Use Types Packs/Day Years Used Date Smoking Tobacco: Every Day Cigarettes Smokeless Tobacco: Never Alcohol Use Standard Drinks/Week Comments Not Currently 0 (1 standard drink = 0.6 oz pur e alcohol) 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 Specialists at [facility] that performed the study may have [...] documented as of this encounter Care Teams Joiner Apprentice Relationship Specialty Start Date End Date Kimberly Arauz MD [address] [address] PCP - General Family Medicine 04/01/24 documented as of this encounter
--- OUTSIDE RECORDS SUMMARY | 2025-02-12 12:15 | XMS_ITS | Encounter Summary ---
Author Organization [employer] tem Address [facility]-[id number] [address] [place] [address] Care Team Providers Care Bulk Tank Car Unloader Name Role Phone Kimberly Arauz MD Primary Care Provider [phone] Encounter Details Date Type Department Care Team (Late st Contact Info) Description 10/18/2020 Orders Only [facility] [address] [facility] [place] [address] Nat Lowry MA Social History Tobacco Use [...] PM EDT Office Visit [facility] [place] [address] [place] [address] Carole Tyson, DO [address] [facility] [address] [place] [address] documented as of this encounter Visit Diagnoses Not on filedocumented in this encounter Care Teams Bulk Tank Car Unloader Relationship Specialty Start Date End Date Kimberly Arauz MD 112 [facility] 110 [place] [address] PCP - General Family Medicine 04/01/24 documented as of this encounter
--- OUTSIDE RECORDS SUMMARY | 2025-02-12 12:16 | XMS_ITS | Encounter Summary ---
Author Organization [employer] tem Address [facility][id number] [address] [place] [address] Care Team Providers Care Rug Shampooer Name Role Phone Kimberly Arauz MD Primary Care Provider [phone] Reason for Visit * Reason Onset Date Comments Hospital Follow-up 12/06/2024 Encounter Details Date Type Department Care Team (Late st Contact Info) Description 12/06/2024 [facility] [address] [place] [address] [facility] Follow-up Social History Tobacco Use Types Packs/Day Years Used Date Smoking Tobacco: Every Day Cigarettes Smokeless Tobacco: Never Alcohol Use Standard Drinks/Week Comments Not Currently 0 (1 standard drink = 0.6 oz pur e alcohol) [facility] Utilities Answer Date Recorded In the past 12 months has [employer], gas, oil, or water [employer] threatened to shut off services in your [...] MMM. He signed off patient care from [facility] Dx 1. Bradycardia seems [...] PM EDT Office Visit [facility] [place] [address] [place] [address] [place] [address] [place] [address] [place] [address] documented as of this encounter Goals Goal [...] documented as of this encounter Care Teams Rug Shampooer Relationship Specialty Start Date End Date Kimberly Arauz MD [address] [facility] 110 [place] [address] PCP - General Family Medicine 04/01/24 documented as of this encounter
--- OUTSIDE RECORDS SUMMARY | 2025-02-12 12:16 | XMS_ITS | Encounter Summary ---
Author Organization [employer] Address [facility]-[id number] [address] [place] [address] Care Team Providers Care Fitness Teacher Name Role Phone Kimberly Arauz MD Primary Care Provider [phone] Encounter Details Date Type Department Care Team (Late st Contact Info) Description 12/12/2024 Telephone [facility] [address] [place] [phone] Pinky Ramos CMA Social History Tobacco Use Types Packs/Day Years Used Date Smoking Tobacco: Every Day Cigarettes Smokeless Tobacco: Never Alcohol Use Standard Drinks/Week Comments Not Currently 0 (1 standard drink = 0.6 oz pur e alcohol) [facility] Utilities Answer Date Recorded In the past 12 months has [employer], gas, oil, or water [employer] threatened to shut off services in your [...] PM EDT Office Visit [facility] [place] [address] [place] [address] Carole Tyson, DO [address] [facility] [address] [place] [address] documented as of this encounter Goals Goal [...] as of this encounter Care Teams Fitness Teacher Relationship Specialty Start Date End Date Kimberly Arauz MD [address] [address] PCP - General Family Medicine 04/01/24 documented as of this encounter
--- OUTSIDE RECORDS SUMMARY | 2025-02-12 12:16 | XMS_ITS | Encounter Summary ---
Author Organization [facility] Address [address] [place] [address] Care Team Providers Care Podiatric Medicine Doctor Name Role Phone Kimberly Arauz MD Primary Care Provider [phone] Gonzales Still OUTSIDE SALES CONSULTANT Unavailable Unava ilable Encounter Details Date Type Department Care Team (Late Contact Info) Description 01/21/2023 Abstract [facility] [address] [facility] 110 [place] [address] Minoo Barbour PA [address] [facility] 110 [place] [address] Social History Tobacco Use Types Packs/Day Years [...] Description 02/14/2025 1:00 PM EDT Telemedicine [facility] [address] [place] [address] Gonzales Still LPC 02/15/2025 2:30 PM EDT Office Visit [facility] [address] [facility] 110 [place] [address] Kimberly Arauz MD [address] [facility] 110 [place] [address] documented as of this encounter Visit Diagnoses Not on filedocumented in this encounter Care Teams Podiatric Medicine Doctor Relationship Specialty Start Date End Date Kimberly Arauz MD [address] [facility] 110 [place], [place] [phone] PCP - General Family Medicine 01/20/23 Gonzales Still LPC [facility] Manager Plaster Machine Tender 10/02/24 documented as of this encounter
--- OUTSIDE RECORDS SUMMARY | 2025-02-12 12:16 | XMS_ITS | Encounter Summary ---
Author Organization [employer] [facility] tem Address [facility]-[id number] [address] [place] [address] Care Team Providers Care Top Stitcher Name Role Phone Kimberly Arauz MD Primary Care Provider [phone] Encounter Details Date Type Department Care Team (Late st Contact Info) Description 12/15/2024 Telephone [facility] [address] [place] [phone] Pinky Ramos CMA Social History Tobacco Use Types Packs/Day Years Used Date Smoking Tobacco: Every Day Cigarettes Smokeless Tobacco: Never Alcohol Use Standard Drinks/Week Comments Not Currently 0 (1 standard drink = 0.6 oz pur e alcohol) [facility] Utilities Answer Date Recorded In the past 12 months has [employer], gas, oil, or water [employer] threatened to shut off services in your [...] PM EDT Office Visit [facility] [place] [address] [place] [address] Carole Tyson, DO [address] [facility] [address] [place] [address] documented as of this encounter Goals Goal [...] documented as of this encounter Care Teams Top Stitcher Relationship Specialty Start Date End Date Kimberly Arauz MD [address] [address] PCP - General Family Medicine 04/01/24 documented as of this encounter
== END 2025-02-12 12:13 | disposition home or self-care (01) ==
LOC: US 12:12
PROVIDERS: PCP Family Medicine; Visit Provider Internal Medicine Interventional Cardiology
DX: N20.0 Calculus of kidney (principal); I10 Essential (primary) hypertension
CPT/HCPCS: 76775; 93975

== ENCOUNTER 2025-04-05 09:40 | Outpatient (OUT) | payer OTHER, SELFPAY ==
--- OUTSIDE RECORDS SUMMARY | 2013-12-28 10:30 | XMS_ITS | Encounter Summary ---
Author Organization [facility] Address [address], [address] [place] [address] Care Team Providers Care [employer] Communications Sergeant Name Role Phone Unavailable Primary Care Provider Unavailabl e Encounter Details Date Type Department Care Team (Late st Contact Info) Description 12/28/2013 10:30 AM EDT Hospital Encounter [facility] [address] [place] [address] Tamie Wei MD [address] [place] [address] Social History Tobacco Use Types Packs/Day Years [...]
--- OUTSIDE RECORDS SUMMARY | 2024-08-14 05:45 | XMS_ITS ---
Author Organization [facility] Address [address] [place] [address] Care Team Providers Care Processing Lead Name Role Phone Bekah Helms Primary Care Provider [phone] Dr. Justino Solo Unavailable [phone] REASON FOR VISIT FILLING Encounters Encounter Location Date Provider Diagnosis [facility] [address] [place] [address] 08/14/2024 Justino Solo Plan Of Treatment Next Appt Details Provider Name:Piedad Flower, 10/2024 02:00:00 PM, [address], [place], [address], Progress Notes * NAFISA ELLIOTTDOB:1995 (29 yo F)Acc No.[id number]:08/14/2024 Patient: NAFISA ROBERTS Provider: Joshua Solo DDS :1995 A ge:28 Y S ex:Female Date:08/14/2024 Address:[address] , [address], [place], [id number] Pcp:Bekah Helms Subjective: * Chief Complaints: * 1 . FILLING. * Medical History: Objective: * Vitals: Assessment: Plan: * Treatment: * Images: * Electronic signature of Dr. Justino Solo , DMD on 04/05/2025 at 09:43 AM EDT Sign off status: Pending * Provider: Joshua Solo DDS Date: 0 08/14/2024 Generated for Printi ng/Fashawng/eTransmitting on: 0 04/05/2025 09:43 AM EDT
--- OUTSIDE RECORDS SUMMARY | 2024-12-25 09:45 | XMS_ITS ---
Author Organization [facility] Address [address] [place] [address] Care Team Providers Care Fork Lift Technician Name Role Phone Bekah Helms Primary Care Provider [phone] Dr. Justino Solo Unavailable [phone] REASON FOR VISIT FILLING Encounters Encounter Location Date Provider Diagnosis [facility] [address] [place] [address] 12/25/2024 Justino Solo Plan Of Treatment Next Appt Details Provider Name:Piedad Flower, 10/2024 02:00:00 PM, [address], [place], [address], Progress Notes * NAFISA ELLIOTTDOB:1995 (29 yo F)Acc No.[id number]:12/25/2024 Patient: NAFISA ROBERTS Provider: Joshua Solo DDS :1995 A ge:29 Y S ex:Female Date:12/25/2024 Address:[address] , [address], [place], [id number] Pcp:Bekah Helms Subjective: * Chief Complaints: * 1 . FILLING. * Medical History: Objective: * Vitals: Assessment: Plan: * Treatment: * Images: * Electronic signature of Dr. Justino Solo , DMD on 04/05/2025 at 09:44 AM EDT Sign off status: Pending * Provider: Joshua Solo DDS Date: 12/25/2024 Generated for Printi ng/Fashawng/eTransmitting on: 0 04/05/2025 09:44 AM EDT
--- OUTSIDE RECORDS SUMMARY | 2025-04-05 09:44 | XMS_ITS | Encounter Summary ---
Author Organization [facility] Address [address] [place] [address] Care Team Providers Care Extruder Operator Vertical Name Role Phone Kimberly Blancas MD Primary Care Provider [phone] Gonzales Still RESEARCH ENGINEER Unavailable Unava ilable Encounter Details Date Type Department Care Team (Late st Contact Info) Description 01/27/2024 Clinisync Result Encounter [facility] External Department Unsolicited Kimberly Blancas MD [address] [facility] 110 [place] [address] Social History Tobacco Use Types Packs/Day Years [...] Care Team (Late st Contact Info) Description 04/25/2025 2:10 PM EDT Office Visit [facility] [place] [facility] [address] [place] [address] Timmy Smiley DO [address] [facility] [place] [address] 05/21/2025 1:10 PM EDT Office Visit [facility] [address] [place] [address] Cristin Chandra MD [address] [place] [address] documented as of this encounter Procedures Procedure Name Priority Date/Time Associated Diagnosis Comments US SOFT TISSUE HEAD AND NECK 01/27/2024 11:10 AM EDT documented in this encounter Results * US SOFT TISSUE HEAD AND NECK (01/27/2024 11:10 AM EDT) Anatomical Region Laterality Modality Other 01/27/2024 11:1 0 AM EDT Narrative 01/27/2024 11:12 AM EDT [address] [address] Ultrasound Report Signed Patient: NAFISA ELLIOTT MR#: [id number] : 1995 Acct:[id number] Age/Sex: 28 / F ADM Date: 01/26/24 Loc: US Attending Dr: KIMBERLY BLANCAS Ordering Physician: KIMBERLY BLANCAS Date of Service: 01/26/24 Procedure(s): US soft tissue head and neck Accession Number(s): [id number] cc: KIMBERLY BLANCAS The [address] [address] Patient Name: NAFISA ELLIOTT MRN: [id number] date: 1995 Sex: F Assigned Patient Location: US Current Patient Location: Accession/Order Number: [id number] Exam Date: 01/26/2024 09:35 Report Date: 01/27/2024 [...] Signed By: 01/27/24 1112 DD/ 1110 TD/TT: Business Intelligence Developer: Procedure Note Radiology, Radiologist, MD - 01/27/2024 [place] [address] Ultrasound Report Signed Patient: NAFISA ELLIOTT JMR#: [id number] : 1995Acct:[id number] Age/Sex: M Date: 01/26/24 Loc: US Attending Dr: KIMBERLY BLANCAS Ordering Physician: KIMBERLY BLANCAS Date of Service: 01/26/24 Procedure(s): US soft tissue head and neck Accession Number(s): [id number] cc: KIMBERLY BLANCAS The [place] [id number] Patient Name: NAFISA ELLIOTT MRN: [id number] date: 1995 Sex: F Assigned Patient Location: US Current Patient Location: Accession/Order Number: [id number] Exam Date: 01/26/2024 09:35 Report Date: 01/27/2024 [...] M.D. Signed By:01/27/24 1112 DD/ 1110 TD/TT: Business Intelligence Developer: us Kimberly Blancas MD [facility] Final Result documented in this encounter Visit Diagnoses Not on filedocumented in this encounter Care Teams Extruder Operator Vertical Relationship Specialty Start Date End Date Kimberly Blancas MD [address] [place] [address] PCP - General Family Medicine 01/20/23 Gonzales Still LPC Toll Collector Breaker Layer 10/02/24 documented as of this encounter
--- OUTSIDE RECORDS SUMMARY | 2025-04-05 09:44 | XMS_ITS | Encounter Summary ---
Author Organization [facility] Address [address] [place] [address] Care Team Providers Care Work Car Operator Name Role Phone Kimberly Blancas MD Primary Care Provider [phone] Gonzales Still PROTEIN SCIENTIST Unavailable Unava ilable Encounter Details Date Type [...] Description 04/25/2025 2:10 PM EDT Office Visit [facility] ABREU [address] [place] [address] [place] [address] Carmen Smiley, DO [address] [place] [address] [place] [address] 05/21/2025 1:10 PM EDT Office Visit [facility] [place] [facility] [address] [place] [address] Cristin Chandra MD [address] [place] [address] documented as of this encounter Procedures Procedure Name Priority Date/Time Associated Diagnosis Comments US PELVIS W/ TRANSVAGINAL 06/01/2023 1:12 PM EDT documented in this encounter Results * US PELVIS W/ TRANSVAGINAL (06/01/2023 1:12 PM EDT) Anatomical Region Laterality Modality Other 06/01/2023 1:12 PM EDT Narrative 06/01/2023 1:12 PM EDT The [address] [address] Ultrasound Report Signed Patient: Eli Fatima MR#: [id number] : 1995 Acct:[id number] Age/Sex: 27 / F ADM Date: 06/01/23 Loc: US Attending Dr: Carmen Smiley D.O. Ordering Physician: Carmen Smiley D.O. Date of Service: 06/01/23 Procedure(s): US pelvis w/ transvaginal Accession Number(s): [id number] cc: KIMBERLY BLANCAS ; Carmen Smiley D.O. The [address] [address] Patient Name: ELI FATIMA MRN: [id number] date: 1995 Sex: F Assigned Patient Location: US Current Patient Location: US Accession/Order Number: [id number] Exam Date: 06/01/2023 10:58 Report Date: 06/01/2023 13:12 At the request of: CARMEN SMILEY Procedure: US pelvis w/ transvaginal EXAM: [...] Willett Signed By: 06/01/231314 DD/ 11 TD/TT: Marketing Designer: Procedure Note Radiology, Radiologist, MD - 06/01/2023 [place] [address] Ultrasound Report Signed Patient: Eli Fatima JMR#: [id number] : 1995Acct:[id number] Age/Sex: 27 / FADM Date: 06/01/23 Loc: US Attending Dr: Carmen Smiley D.O. Ordering Physician: Carmen Smiley D.O. Date of Service: 06/01/23 Procedure(s): US pelvis w/ transvaginal Accession Number(s): [id number] cc: KIMBERLY BLANCAS ; Carmen Smiley D.O. The [place] [id number] Patient Name: ELI FATIMA MRN: [id number] date: 1995 Sex: F Assigned Patient Location: US Current Patient Location: US Accession/Order Number: [id number] Exam Date: 06/01/2023 10:58 Report Date: 06/01/2023 13:12 At the request of: CARMEN SMILEY Procedure: US pelvis w/ transvaginal EXAM: [...] By: Alvaro Willett Signed By:06/01/23 131 DD/ 11 TD/TT: Marketing Designer: us Generic External Data Provider [facility] Final Result documented in this encounter Visit Diagnoses Not on filedocumented in this encounter Care Teams Work Car Operator Relationship Specialty Start Date End Date Kimberly Blancas MD [address] [place] [address] PCP - General Family Medicine 01/20/23 Gonzales Still LPC Electrical Wiring Lineman Monkey Keeper 10/02/24 documented as of this encounter
--- OUTSIDE RECORDS SUMMARY | 2025-04-05 09:44 | XMS_ITS | Encounter Summary ---
Author Organization [facility] Address [address] [place] [address] Care Team Providers Care Vehicle Window Tinter Name Role Phone Kimberly Arauz MD Primary Care Provider [phone] Gonzales Still AQUATIC PERFORMER Unavailable Unava ilable Encounter Details Date Type Department Care Team (Late st Contact Info) Description 08/24/2024 Orders Only [facility] [place] [facility] [address] [place] [address] Alison Murillo MA [address] [place] [address] Social History Tobacco Use Types Packs/Day Years [...] EDT Office Visit [facility] [place] [facility] [address] [place] [address] Timmy Smiley DO [address] [place] [address] 05/21/2025 1:10 PM EDT Office Visit [facility] [place] [facility] [address] [place] [address] Cristin Chandra MD [address] [place] [address] documented as of this encounter Procedures Procedure Name Priority Date/Time Associated Diagnosis Comments PAP SMEAR Routine 08/14/2024 12:00 AM EST documented in this encounter Results * Pap Smear (08/14/2024 12:00 AM EST) Swab Cervical swab / Unknown us Timmy Smiley DO LAB CYTOLOGY ORDERABLES Final Re sult EXTERNAL LAB documented in this encounter Visit Diagnoses Not on filedocumented in this encounter Care Teams Vehicle Window Tinter Relationship Specialty Start Date End Date Kimberly Arauz MD [address] [facility] 110 [place] [address] PCP - General Family Medicine 01/20/23 Gonzales Still LPC Laborer Pipeline Pulp Grinder Feeder 10/02/24 documented as of this encounter
--- OUTSIDE RECORDS SUMMARY | 2025-04-05 09:44 | XMS_ITS | Patient Health Record ---
Author Organization [employer] [facility] Address [address] [place] [address] Care Team Providers Care Auto Brake Technician Name Role Phone Bekah Helms Primary Care Provider [phone] Dr. Justino Solo [facility] [phone] Allergies No Known Allergies Reason For Referral [...] is 2 tabs daily Orally Once a day; Duration: 30 days Active LORazepam 0.5 MG 1 tab 30 minutes prior to anxiety inducing event Orally twice daily; Duration: 3 days Take with Clonidine 0.1mg 11/29/2023 Active Divalproex Sodium ER 250 MG 1 tablet Orally Once a day; Duration: 30 day(s) Start in PM, may move to AM if preferred 10/28/2022 Not-Taking Toomsuba Carbonate 300 MG 1 capsule Orally Once a day; Duration: 30 day(s) 06/24/2022 Not-Taking Ibuprofen 800 MG [...] Status Risk Notes Problem Generalized anxiety disorder (13984067) Anxiety, generalized (F41.1) Active confirmed Problem Bipolar affective disorder, currently manic, moderate (949867260) Bipolar 1 disorder with moderate priti (F31.12) Active confirmed Encounters Encounter Location Date Provider Diagnosis [facility] [address] [place] [address] 05/03/2024 Justino Germania Cracked tooth K03.81 Assessments Encounter Date Diagnosis (ICD Code) Assessment Notes Treatment Notes Treatment Clinical Notes Section Notes 05/03/2024 Cracked tooth (ICD-10 - K03.81) Plan Of Treatment Next Appt Details Provider Name:Piedad Flower, 10/2024 02:00:00 PM, [address], [place], [address], Insurance Providers Payer Name Payer Address Payer Phone Subscriber Number Group Number Insured Name Patient Relationship to Insured Coverage Start Date Coverage End Date ANTH Primary [address] [place] [phone] [id number] NAFISA ELLIOTT Self - patient is the insured 1 [employer] [place] Medicaid [address] [place] [address] [phone] [id number] NAFISA ELLIOTT Self - patient is the insured 3 [facility] [address] [place] [phone] [id number] NAFISA ELLIOTT Self - patient is the insured 4 zBH [place]-te rmed 22 [address] CLAIMS DEPT [facility] [place] [address] [id number] NAFISA ELLIOTT Self - patient is the insured 0 3 z MEDICAID CFC after [place]-te rmed 22 [address] [place] [address] [id number] NAFISA ELLIOTT Self - patient is the insured 0 3 zDENTAL [place]UC[place]-te rmed 22 [address] [address] [place] [address] [id number] NAFISA ELLIOTT Self - patient is the insured 2 3 zDental MEDICAID [place] after BUCKEYE-te rmed 22 [address] [place] [address] [id number] NAFISA ELLIOTT Self - patient is the insured 2 3 [employer] [place] [employer] [address] [address] [place] [address] [id number] NAFISA ELLIOTT Self - patient is the insured 3 Dental [employer] [place] [address] [place] [address] [id number] NAFISA ELLIOTT Self - patient is the insured 3 Medical (General) History Medical History History ICD Code bipolar anxiety Surgical History Surgery Date(Month/Year) cholecystectomy lymphectomy episiotomy tubal ligation tonsillectomy 10/2020 fallopian tubes removed 09/2021
--- OUTSIDE RECORDS SUMMARY | 2025-04-05 09:44 | XMS_ITS | Encounter Summary ---
Author Organization [facility] Address [address] [place] [address] [place] [address] Care Team Providers Care Veterinary Toxicologist Name Role Phone Kimberly Arauz MD Primary Care Provider [phone] Gonzales Still SAND DRIER Unavailable Unava ilable Encounter Details Date Type Department Care Team (Late st Contact Info) Description 02/19/2025 [facility] [address] [facility] 110 [place] [address] Kimberly Arauz MD [address] [facility] 110 [place] [address] Comprehensive metabolic panel, TSH W/REFLEX TO FT4, CBC Social History Tobacco Use Types Packs/Day Years [...] Visit [facility] [place] [facility] [address] [facility] [place] [address] Timmy Smiley DO [address] [facility] [place] [address] 05/21/2025 1:10 PM EDT Office Visit [facility] [place] [facility] [address] [place] [address] Cristin Chandra MD [address] [place] [address] documented as of this encounter Visit Diagnoses Not on filedocumented in this encounter Care Teams Veterinary Toxicologist Relationship Specialty Start Date End Date Kimberly Arauz MD [address] [facility] 110 [place] [address] PCP - General Family Medicine 01/20/23 Gonzales Still LPC Hr Analyst Global Marketing Specialist 10/02/24 documented as of this encounter
--- OUTSIDE RECORDS SUMMARY | 2025-04-05 09:44 | XMS_ITS | Clinical Summary ---
Author Organization [facility] Address [address] [place] [address] Phone Care Team Providers Care Commutator Repairer Name Role Phone Unavailable Primary Care Provider [...] of 1 - Stand jael series) 1998 Hepatitis C Screening 12/03/2015 Hepatitis B Vaccines (1 of 3 - 19+ 3-dose series) 2016 Cervical Cancer Screening 2018 HPV/Cotest 2018 Pap Smear 2018 DTaP/Tdap/Td Vaccines (1 - Tdap) 12/03/2019 COVID-19 Vaccine (1 - 2023-2 5 season) 2024 HPV Vaccines (1 - 3-dose sta ndard series) 2024 Influenza Vaccine (#1) 2025 Zoster Vaccines [...]
--- OUTSIDE RECORDS SUMMARY | 2025-04-05 09:44 | XMS_ITS | Clinical Summary ---
Author Organization [facility] Address [address] [facility] [place] [address] Care Team Providers Care Local Intermodal Truck Driver Name Role Phone Kimberly Arauz MD Primary Care Provider [phone] Allergies Active Allergy Reactions Criticality Noted Date [...] patient's age to complete this topic [place] [place] [address] Care Teams Local Intermodal Truck Driver Relationship Specialty Start Date End Date Kimberly Arauz MD [address] [facility] 110 [place] [address] PCP - General Family Medicine 05/19/24
--- OUTSIDE RECORDS SUMMARY | 2025-04-05 09:44 | XMS_ITS | Encounter Summary ---
Author Organization [facility] Address [id number] [address] [place] [address] Care Team Providers Care Tractor Mechanic Name Role Phone Kimberly Arauz MD Primary Care Provider [phone] Reason for Referral * Diagnostic Imaging (Routine) - Pending Review Specialty Diagnoses / Procedures Referred By Contac t Referred To Contact Radiology Diagnoses Pain Procedures CT angiogram chest [facility] [address] [place] [phone] Phone: tel: fax: Referral ID Status Reason Start Date Expiration Date V isits Requested Visits Authorized [id number] Pending Review 12/04/2024 12/04/2025 1 1 * Diagnostic Imaging (Routine) - Pending Review Specialty Diagnoses / Procedures Referred By Contac t Referred To Contact Radiology Diagnoses Pain Procedures CT brain without contrast [facility] [place] [address] Phone: tel: fax: Referral ID Status Reason Start Date Expiration Date V isits Requested Visits Authorized [id number] Pending Review 12/04/2024 12/04/2025 1 1 * Diagnostic Imaging (Routine) - Pending Review Specialty Diagnoses / Procedures Referred By Contac t Referred To Contact Radiology Diagnoses Pain Procedures CT cervical spine without contrast [facility] [address] [place] [phone] Phone: tel: fax: Referral ID Status Reason Start Date Expiration Date V isits Requested Visits Authorized [id number] Pending Review 12/04/2024 12/04/2025 1 1 * Diagnostic Imaging (Routine) - Pending Review Specialty Diagnoses / Procedures Referred By Contac t Referred To Contact Radiology Diagnoses Pain Procedures CT angiogram abdomen and pelvis [facility] [address] [place] [phone] Phone: tel: fax: Referral ID Status Reason Start Date Expiration Date V isits Requested Visits Authorized [id number] Pending Review 12/04/2024 12/04/2025 1 1 Encounter Details Date Type Department Care Team (Late st Contact Info) Description 12/04/2024 Orders Only [facility] [address] [place] [phone] Transcribe, Orders Support User Pain (Primary Dx) Social History Tobacco Use Types Packs/Day Years Used Date Smoking Tobacco: Every Day Cigarettes Smokeless Tobacco: Never Alcohol Use Standard Drinks/Week Comments Not Currently 0 (1 standard drink = 0.6 oz pur e alcohol) [facility] Utilities Answer Date Recorded In the [...] on file documented as of this encounter Goals Goal [...] with the renal veins There is a pcxhh-cn-evbhugbj amount of fluid and blood in the [...] pulsation artifact along the ascending aorta which zgemmbjx47 mm There is some haziness or trace [...] 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 Specialists at [facility] that performed the study may have [...] documented as of this encounter Care Teams Tractor Mechanic Relationship Specialty Start Date End Date Kimberly Arauz MD 112 [facility] 110 [place] [address] PCP - General Family Medicine 02/13/25 documented as of this encounter
--- OUTSIDE RECORDS SUMMARY | 2025-04-05 09:44 | XMS_ITS | Encounter Summary ---
Author Organization [facility] Address [id number] [address] [place] [address] Care Team Providers Care Glass Production Machine Operator Name Role Phone Kimberly Arauz MD Primary Care Provider [phone] Encounter Details Date Type Department Care Team (Late st Contact Info) Description 10/18/2020 Orders Only [facility] [address] [place] [address] [address] Nat Lowry MA Social History Tobacco Use [...] on filedocumented in this encounter Care Teams Glass Production Machine Operator Relationship Specialty Start Date End Date Kimberly Arauz MD [address] [facility] [address] [place] [address] PCP - General Family Medicine 02/13/25 documented as of this encounter
--- OUTSIDE RECORDS SUMMARY | 2025-04-05 09:44 | XMS_ITS | Encounter Summary ---
Author Organization [facility] Address [address] [place] [address] Care Team Providers Care Tin Worker Name Role Phone Kimberly Blancas MD Primary Care Provider [phone] Gonzales Still NEEDLE PUNCH MACHINE OPERATOR Unavailable Unava ilable Encounter Details Date Type Department Care Team (Late st Contact Info) Description 02/04/2024 Clinisync Result Encounter [facility]OM[facility] External Department Unsolicited Minoo Barbour, DENISSE [address] [facility] 110 [place] [address] Social History Tobacco Use Types Packs/Day Years [...] EDT Office Visit [facility] [place] [facility] [address] [place] [address] Timmy Smiley DO [address] [facility] [place] [address] 05/21/2025 1:10 PM EDT Office Visit [facility] [address] [place] [address] Cristin Chandra MD [address] [place] [address] documented as of this encounter Procedures Procedure Name Priority Date/Time Associated Diagnosis Comments US BIOPSY FNA 02/04/2024 1:28 PM EDT documented in this encounter Results * US BIOPSY FNA (02/04/2024 1:28 PM EDT) Anatomical Region Laterality Modality Other 02/04/2024 1:28 PM EDT Narrative 02/04/2024 1:31 PM EDT The [address] [address] Ultrasound Report Signed Patient: Eli Fatima MR#: [id number] : 1995 Acct:[id number] Age/Sex: 28 / F ADM Date: 02/04/24 Loc: US Attending Dr: MINOO BARBOUR Ordering Physician: MINOO BARBOUR Date of Service: 02/04/24 Procedure(s): US biopsy FNA Accession Number(s): [id number] cc: KIMBERLY BLANCAS ; MINOO BARBOUR The [address] [address] Patient Name: ELI FATIMA MRN: [id number] date: 1995 Sex: F Assigned Patient Location: US Current Patient Location: US Accession/Order Number: [id number] Exam Date: 02/04/2024 12:25 Report Date: 02/04/2024 [...] Signed By: 02/04/24 1332 DD/ 1328 TD/TT: New Client Banking Services Clerk: Procedure Note Radiology, Radiologist, MD - 02/04/[address] [address] Ultrasound Report Signed Patient: Eli Fatima JMR#: [id number] : 1995Acct:[id number] Age/Sex: M Date: 02/04/24 Loc: US Attending Dr: MINOO BARBOUR Ordering Physician: MINOO BARBOUR Date of Service: 02/04/24 Procedure(s): US biopsy FNA Accession Number(s): [id number] cc: KIMBERLY BLANCAS ; MINOO BARBOUR The [address] [address] Patient Name: ELI FATIMA MRN: [id number] date: 1995 Sex: F Assigned Patient Location: US Current Patient Location: US Accession/Order Number: [id number] Exam Date: 02/04/2024 12:25 Report Date: 02/04/2024 13:28 At the request of: MINOO BARBUOR Procedure: US biopsy FNA EXAMINATION: US biopsy [...] Dictated By: Kati Bradshaw M.D. Signed By:02/04/24 1336 DD/ 1328 TD/TT: New Client Banking Services Clerk: us Mnioo Barbour [place] [facility] Final Result documented in this encounter Visit Diagnoses Not on filedocumented in this encounter Care Teams Tin Worker Relationship Specialty Start Date End Date Kimberly Blancas MD [address] [place] [address] PCP - General Family Medicine 01/20/23 Gonzales Still LPC Family Welfare Social Work Professor Contract Modeler 10/02/24 documented as of this encounter
--- OUTSIDE RECORDS SUMMARY | 2025-04-05 09:44 | XMS_ITS | Encounter Summary ---
Author Organization [facility] Address [address] [place] [address] Care Team Providers Care Operator Electronic Warfare Name Role Phone Kimberly Arauz MD Primary Care Provider [phone] Gonzales Still RUBBER PRINTING MACHINE OPERATOR Unavailable Unava ilable Encounter Details Date Type Department Care Team (Late st Contact Info) Description 02/07/2024 Orders Only [facility] [place] [facility] [address] [facility] 110 [place] [address] Minoo Barbour PA [address] [facility] 110 [place] [address] Lump of scalp Social History Tobacco Use [...] 2:10 PM EDT Office Visit [facility] [place] [facility] [address] [facility] [place] [address] Timmy Smiley DO [address] [facility] [address] [place], [place] [address] 05/21/2025 1:10 PM EDT Office Visit [facility] [facility] [address] [place] [address] Cristin Chandra MD [address] [place] [address] documented as of this encounter Visit Diagnoses Diagnosis Lump of scalp documented in this encounter Care Teams Operator Electronic Warfare Relationship Specialty Start Date End Date Kimberly Arauz MD 112 [facility] 110 [place] [address] PCP - General Family Medicine 01/20/23 Gonzales Still LPC Vegetable Inspector Subcontract Administrator 10/02/24 documented as of this encounter
--- OUTSIDE RECORDS SUMMARY | 2025-04-05 09:44 | XMS_ITS | Encounter Summary ---
Author Organization [facility] Address [address] [place] [address] Care Team Providers Care Talent Development Coordinator Name Role Phone Kimberly Arauz MD Primary Care Provider [phone] Gonzales Still HOSPICE CARE TRANSITIONS COORDINATOR Unavailable Unava ilable Encounter Details Date Type Department Care Team (Late st Contact Info) Description 02/15/2024 Orders Only [facility] [address] [facility] [address] [place] [id number] Unallocated, Noms Provider, [address] [place], [place] [id number] Social History Tobacco Use Types Packs/Day Years [...] Description 04/25/2025 2:10 PM EDT Office Visit [facility] [address] [place] [phone] Timmy Smiley DO [address] [place], [place] [id number] 05/21/2025 1:10 PM EDT Office Visit [facility] [place] [facility] [address] [place] [address] Cristin Chandra MD [address] [place] [address] documented as of this encounter Procedures Procedure Name Priority Date/Time Associated Diagnosis Comments US LOCAL BIOPSY Routine 02/15/2024 9:44 AM EDT documented in this encounter Results * US LOCAL BIOPSY (02/15/2024 9:44 AM EDT) Anatomical Region Laterality Modality Radiographic Laice ging us Noms Provider Unallocated IMG XR PROCEDURES F inal Result documented in this encounter Visit Diagnoses Not on filedocumented in this encounter Care Teams Talent Development Coordinator Relationship Specialty Start Date End Date Kimberly Arauz MD [address] [facility] [address] [place] [address] PCP - General Family Medicine 01/20/23 Gonzales Still LPC Market Research Manager Data Security Administrator 10/02/24 documented as of this encounter
--- OUTSIDE RECORDS SUMMARY | 2025-04-05 09:44 | XMS_ITS | Clinical Summary ---
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 [address] [place] [address] [address] [place] [address] PCP - General Family Medicine 02/13/25
--- OUTSIDE RECORDS SUMMARY | 2025-04-05 09:44 | XMS_ITS | Encounter Summary ---
Author Organization [facility] Address [address] [place] [address] Care Team Providers Care Department Director Name Role Phone Kimberly Arauz MD Primary Care Provider [phone] Gonzales Still ADJUNCT ART HISTORY INSTRUCTOR Unavailable Unava ilable Encounter Details Date Type Department Care Team (Late st Contact Info) Description 10/18/2023 Abstract [facility] [address] [facility] 110 [place] [address] Kimberly Arauz MD [address] [facility] 110 [place] [address] Social History Tobacco Use Types Packs/Day Years [...] 04/25/2025 2:10 PM EDT Office Visit [facility] [address] [facility] [place] [phone] Timmy Smiley DO [address] [facility] [place] [address] 05/21/2025 1:10 PM EDT Office Visit [facility] [address] [place] [address] Cristin Chandra MD [address] [place] [address] documented as of this encounter Visit Diagnoses Not on filedocumented in this encounter Care Teams Department Director Relationship Specialty Start Date End Date Kimberly Arauz MD [address] [facility] [address] [place] [address] PCP - General Family Medicine 01/20/23 Gonzales Still LPC Heater Furnace Web Applications Programmer 10/02/24 documented as of this encounter
--- OUTSIDE RECORDS SUMMARY | 2025-04-05 09:44 | XMS_ITS | Encounter Summary ---
Author Organization [facility] Address [address] [place] [address] Care Team Providers Care Ui Ux Developer Name Role Phone Kimberly Arauz MD Primary Care Provider Gonzales Still INSULATION PROFESSIONAL Unavailable Unava ilable Encounter Details Date Type Department Care Team (Late st Contact Info) Description 01/21/2023 Abstract [facility] [address] [facility] [address] [place] [address] Kimberly Arauz MD 112 [facility] 110 [place] [address] Social History Tobacco Use Types Packs/Day Years [...] 04/25/2025 2:10 PM EDT Office [place] [address] Timmy Smiley DO [address] [facility] [place] [address] 05/21/2025 1:10 PM EDT Office Visit [facility] [place] [facility] [address] [place] [address] Cristin Chandra MD [address] [place] [address] documented as of this encounter Visit Diagnoses Not on filedocumented in this encounter Care Teams Ui Ux Developer Relationship Specialty Start Date End Date Kimberly Arauz MD [address] [facility] 110 [place] [address] PCP - General Family Medicine 01/20/23 Gonzales Still LPC Peanut Separator Toolroom Machinist 10/02/24 documented as of this encounter
--- OUTSIDE RECORDS SUMMARY | 2025-04-05 09:44 | XMS_ITS | Encounter Summary ---
Author Organization [facility] Address [address] [place] [address] Care Team Providers Care Wealth Management Manager Name Role Phone Kimberly Arauz MD Primary Care Provider [phone] Gonzales Still ARCHITECTURAL INSPECTOR Unavailable Unava ilable Encounter Details Date Type Department Care Team (Late st Contact Info) Description 11/20/2024 Abstract [facility] [place] [facility] [address] [place] [phone] Timmy Smiley DO [address] [place], [id number] Social History Tobacco Use Types Packs/Day Years [...] EDT Office Visit [facility] [place] [facility] [address] [facility] [place] [phone] Timmy Smiley DO [address] [facility] [address] [place], [place] [id number] 05/21/2025 1:10 PM EDT Office Visit [facility] [place] [facility] [address] [place] [address] Cristin Chandra MD [address] [place] [address] documented as of this encounter Visit Diagnoses Not on filedocumented in this encounter Care Teams Wealth Management Manager Relationship Specialty Start Date End Date Kimberly Arauz MD [address] [place] [address] PCP - General Family Medicine 01/20/23 Gonzales Still LPC Bookkeeper Animal Care Provider 10/02/24 documented as of this encounter
--- OUTSIDE RECORDS SUMMARY | 2025-04-05 09:45 | XMS_ITS | Encounter Summary ---
Author Organization [facility] Address [address] [place] [address] Care Team Providers Care Sales Product Manager Name Role Phone Kimberly Arauz MD Primary Care Provider [phone] Gonzales Still OVERNIGHT CASHIER Unavailable Unava ilable Encounter Details Date Type Department Care Team (Late st Contact Info) Description 06/02/2023 Orders Only [facility] [address] [facility] 110 [place] [address] A, Unknown Practice [address] [place], [place] [phone] Social History Tobacco Use Types Packs/Day Years [...] EDT Office Visit [facility] [address] [place] [phone] Timmy Smiley DO [address] [facility] [place] [address] 05/21/2025 1:10 PM EDT Office Visit [facility] [place] [facility] [address] [place] [address] Cristin Chandra MD [address] [place] [address] documented as of this encounter Procedures [...] on filedocumented in this encounter Care Teams Sales Product Manager Relationship Specialty Start Date End Date Kimberly Arauz MD [address] [facility] 110 [place] [address] PCP - General Family Medicine 01/20/23 Gonzalse Still LPC Technical Specialist Cytology Trauma Coordinator 10/02/24 documented as of this encounter
--- OUTSIDE RECORDS SUMMARY | 2025-04-05 09:45 | XMS_ITS | Clinical Summary ---
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 Unava ilable Allergies Active Allergy Reactions Criticality Noted Date Comments Alprazolam Itching 01/19/2023 Basil Oil 05/13/2021 Other Reaction(s): Numbness Bisacodyl Rash Low 02/08/2020 Buspirone Unknown 01/19/2023 Codeine Rash Low 05/06/2021 Fluoxetine 05/06/2021 Hydroxyzine Unknown 01/19/2023 Other Reaction(s): black out Methylprednisolone Rash Low 01/19/2023 Metronidazole Rash Low 01/19/2023 Medications albuterol (ProAir RespiClick) 90 mcg/act breath-activate d inhalerIndicati ons:Acute asthma (HCC) Inhale 1 puff every 4 (four) hours if needed for wheezing or shortness of breath 1 each 3 05/22/20 24 Active Fluticasone-Ume clidin-Vilant (Trelegy Ellipta) 100-62.5-25 MCG/ACT aerosol powderIndicatio ns:Acute asthma (HCC) Inhale 1 puff Daily 60 each 5 09/23/19 25 Active pregabalin (Lyrica) 100 MG capsuleIndicati ons:Fibromyalgi a Take 1 capsule (100 mg) by mouth in the morning and 1 capsule (100 mg) before bedtime. 60 capsule 2 10/17/19 25 Active valACYclovir (Valtrex) 1 g tabletIndicatio ns:H/O cold sores Take 1 tablet (1,000 mg) by mouth in the morning and 1 tablet (1,000 mg) before bedtime. 14 tablet 5 10/18/19 25 Active ergocalciferol (Vitamin D-2) 1.25 MG (05788 UT) capsuleIndicati ons:Vitamin D deficiency Take 1 capsule (1.25 mg) by mouth 1 (one) time per week 12 capsule 3 11/03/19 25 026 Active ARIPiprazole (Abilify) 5 MG tabletIndicatio ns:Bipolar disorder, in full remission, most recent episode manic (HCC),Manic episode, unspecified (HCC),Bipolar II disorder (HCC) Take 2 tablets (10 mg) by mouth Daily 180 tablet 1 11/24/19 25 Active linaCLOtide (Linzess) 145 MCG capsuleIndicati ons:Drug-induce d constipation Take 1 capsule (145 mcg) by mouth in the morning. Take before meals. Do not crush or chew. 30 capsule 11 02/15/20 25 026 Active lisinopril 10 MG tablet Take 10 mg by mouth in the morning. 02/10/20 25 Active metoprolol succinate XL (Toprol-XL) 25 MG 24 hr tablet Take 25 mg by mouth in the morning. Active potassium chloride ER (Micro-K) 10 MEQ ER capsuleIndicati ons:Hypokalemia Take 2 capsules (20 mEq) by mouth in the morning. 30 capsule 2 02/16/20 25 Active ALPRAZolam (Xanax) 0.5 MG tabletIndicatio ns:Anxiety Take 1 tablet (0.5 mg) by mouth in the morning and 1 tablet (0.5 mg) before bedtime. 60 tablet 03/19/20 25 025 Active aspirin 81 MG EC tablet Take 81 mg by mouth Daily 025 Discontinued ALPRAZolam (Xanax) 0.5 MG tabletIndicatio ns:Anxiety Take 1 tablet (0.5 mg) by mouth in the morning and 1 tablet (0.5 mg) before bedtime. 60 tablet 02/16/20 025 Discontinued(Re order) dexAMETHasone (Decadron) 1 MG tabletIndicatio ns:Primary hypertension Take 1 tablet (1 mg) by mouth 1 (one) time for 1 dose 1 tablet 02/20/20 025 Discontinued Active Problems Problem Noted Date Diagnosed Date Slow transit constipation 02/15/2025 Assessment & Plan (02/15/2025 2:56 PM EDT): Sterling has not yet been picked up She had some results with a partial enema She needs GI evaluation for Possible motility disorder Hypokalemia 02/15/2025 Primary hypertension 02/15/2025 Assessment & Plan (02/15/2025 2:58 PM EDT): Will see Arm Rest Builder, referred by Dr. 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 High suspicion the forceful trauma may vave injured the kedney and the adrenal gland affecting organs contributing to also weight loss. Irregular heart rhythm 12/29/2024 Left hand pain [...] vomiting 01/18/2024 Sprain of right shoulder 01/18/2024 Unintentional weight loss 01/18/2024 Benign neoplasm of occipital lymph [...] smoked daily. Discussed potential health risks of intermediate smoking. Patient voiced understanding. Benefits of cessation, [...] Diagnosed Date Resolved Date Irregular heart rate ([facility]) 12/28/2024 12/29/2024 Encounters Date Type Department Care Team Description 03/20/2025 2:20 PM EDT Office Visit [facility] [address] [place] [address] Timmy Smiley DO Hormone disorder; Vaginal pain 03/20/2025 Bamboo flowsheet [facility] [address] [place] [phone] Timmy Smiley DO 03/19/2025 Refill [facility] [address] [place] [address] Kimberly Arauz MD Anxiety 03/12/2025 Orders Only [facility] [address] [place] [address] Cristin Chandra MD Primary hypertension (Primary Dx) 03/08/2025 Telephone [facility] [address] [place] [address] Cristin Chandra MD Results 02/22/2025 Telephone [facility] [address] [place] [address] Gonzales Still LPC Appointment (Clinician left vm about telehealth appt.) 02/20/2025 Orders Only [facility] [address] [place] [phone] Kimberly Arauz MD Traumatic injury of right kidney 02/19/2025 1:00 PM EDT Office Visit [facility] [address] [place] [phone] Cristin Chandra MD Primary hypertension (Primary Dx); Hypokalemia 02/19/2025 Telephone [facility] [address] [place] [address] Kimberly Arauz MD Referral 02/19/2025 Telephone [facility] [address] [place] [address] Kimberly Arauz MD 02/19/2025 Results Follow-Up [facility] [address] [place] [address] Kimberly Arauz MD Comprehensive metabolic panel, TSH W/REFLEX TO FT4, CBC 02/15/2025 2:30 PM EDT Office Visit [facility] [address] [place] [address] Kimberly Arauz MD Slow transit constipation (Primary Dx); Hypokalemia; Primary hypertension ; Unintentional weight loss; Renal atrophy, right; Anxiety 02/15/2025 Refill [facility] [address] [place] [address] Tiffany Neri LPN Hypokalemia 02/15/2025 Bamboo flowsheet [facility] [address] [place] [address] Kimberly Arauz MD 02/15/2025 Travel 02/14/2025 1:00 PM EDT Clinical Support [facility] [address] [place] [address] Gonzales Still LPC PTSD (post-traumatic stress disorder) ; Generalized anxiety disorder with panic attacks 02/14/2025 Travel 02/13/2025 Telephone [facility] [address] [place] [address] Kimberly Arauz MD Constipation 02/12/2025 4:00 PM EDT Office Visit [facility] [address] [place] [address] Timmy Smiley DO Hormone disorder (Primary Dx); Vaginal pain 02/12/2025 Telephone [facility] [address] [place] [address] Kimberly Arauz MD 02/07/2025 9:00 AM EDT Clinical Support [facility] [address] [place] [phone] Gonzales Still LPC PTSD (post-traumatic stress disorder) ; Generalized anxiety disorder with panic attacks 02/07/2025 Travel 01/23/2025 Clinisync Result Encounter [facility] External Department Unsolicited Provider, Generic External Data 01/22/2025 Telephone [facility] [address] [place] [address] Kimberly Arauz MD ER Follow-up 01/17/2025 Clinisync Result Encounter [facility] External Department Unsolicited Provider, Generic External Data 01/16/2025 2:10 PM EDT Office Visit [facility] [address] [place] [address] Timmy Smiley DO Hormone disorder 01/16/2025 Bamboo flowsheet [facility] [address] [place] [address] Timmy Smiley DO 01/15/2025 Telephone [facility] [address] [place] [address] Emani Bee LPN 01/11/2025 Telephone [facility] [address] [place] [address] Kimberly Arauz MD medication dosing/directions 01/11/2025 Refill [facility] [address] [facility] [address] [place] [phone] Ailyn Quinn MA Anxiety 01/05/2025 Telephone [facility] [address] [facility] [address] [place] [address] Kimberly Arauz MD 01/05/2025 [facility] [address] [facility] [address] [place] [address] Kimberly Arauz MD 01/04/2025 Results Follow-Up [facility] [address] [facility] [address] [place] [address] Kimberly Arauz MD Comprehensive metabolic panel, CBC from Last 3 Months Immunizations Immunization Administration [...] illness Maternal Grandmother Dilia Cervical cancer Mother Marhelena Diabetes Mother Marhelena Relation Name Status Comments [...] Sign Reading Time Taken Comments Blood Pressure 108/70 03/20/2025 2:35 PM EDT Pulse 102 02/19/2025 1:01 PM EDT Temperature 37.1 C (98.8 F) 11/23/2024 1:42 PM EDT Respiratory Rate 20 02/19/2025 1:01 PM EDT Oxygen Saturation 96% 02/19/2025 1:01 PM EDT Inhaled Oxygen Concentration - - Weight 60.3 kg (133 lb) 03/20/2025 2:35 PM EDT Height 152.4 cm (5') 02/19/2025 1:01 PM EDT Body Mass Index 25.97 02/19/2025 1:01 PM EDT Plan of Treatment Upcoming Encounters Date Type Department Care Team (Late st Contact Info) Description 04/25/2025 2:10 PM EDT Office [facility] [address] [address] Timmy Smiley DO [address] [place], [place] [phone] 05/21/2025 1:10 PM EDT Office Visit [facility] [address] [place] [phone] Cristin Chandra MD [address] [place] [address] Health Maintenance Due Date Last Done Comments Influenza Vaccine (#1) 2025 Procedures Procedure Name Priority Date/Time Associated Diagnosis Comments CORTISOL, URINE, 24 HOUR Routine 03/27/2025 3:29 PM EDT Primary hypertension COMPREHENSIVE METABOLIC PANEL Routine 03/01/2025 4:23 PM EDT Traumatic injury of right kidney METANEPHRINES PLASMA Routine 02/28/2025 2:24 PM EDT Primary hypertension CORTISOL, FREE Routine 02/27/2025 8:02 AM EDT Hormone disorder CBC Routine 02/15/2025 3:20 PM EDT Primary hypertension Unintentional weight loss TSH W/REFLEX TO FT4 Routine 02/15/2025 3 :20 PM EDT Primary hypertension Unintentional weight loss COMPREHENSIVE METABOLIC PANEL Routine 02/15/2025 3:20 PM EDT Hypokalemia METANEPHRINES, FRAC., PL. FREE Routine 01/23/2025 5:04 PM EDT ALDOSTERONE LCMS, SERUM Routine 01/23/2025 4:40 PM EDT UH RENIN,PLASMA Routine 01/23/2025 4:40 PM EDT [facility] TESTOSTERONE FREE/TOT EQUILIB Routine 01/17/2025 8:50 AM EDT TBH THYROID ANTIBODIES Routine 01/17/2025 8:50 AM EDT UH SEROTONIN Routine 01/17/2025 [...] A1C Routine 01/17/2025 8: 50 AM EDT from Last 3 Months Results * Cortisol, urine, 24 hour (03/27/2025 3:29 PM EDT) TOTAL VOLUME 2,500 mL [facility] CORTISOL, FREE, URINE 40.9 4.0 - 50.0 mcg/24 h [facility] Comment: This test was developed and its analytical performance characteristics have been determined by [facility]. It has not been cleared or approved by the FDA. This assay has been validated pursuant to the CLIA regulations and is used for clinical purposes. CREATININE, URINE 1.58 0.50 - 2.15 g/24 h [facility] Urine Urine specimen obtained by clean catch procedure / Unknown 03/27/2025 3:29 PM EDT 03/27/2025 3:32 PM EDT Narrative [facility] - 04/03/2025 5:55 PM EDT URINE VOLUME: 2500/24 Resulting Agency Comment Performing Organization Information Site ID: EZ Name: [facility], Address: [address] [place] [phone] Director: Es Cha MD,PhD,CECILY us Cristin Chandra MD LAB URINE ORDERABLES Final Re sult [facility] * (ABNORMAL) Comprehensive metabolic panel (03/01/2025 4:23 PM EDT) Only the most recent of2 resultswithin the time period is included. Glucose 112(H) 65 - 99 mg/dL [facility] Comment: Fasting reference interval For someone without known diabetes, a glucose value between 100 and 125 mg/dL is consistent with prediabetes and should be confirmed with a follow-up test. BUN 12 7 - 25 mg/dL [facility] Creatinine 0.74 0.50 - 0.96 mg/dL [facility] EGFR 114 > OR = 60 mL/min/1. 73m2 [facility] BUN/CREATININE RATIO SEE NOTE: 6 - 22 (calc) [facility] Comment: Not Reported: BUN and Creatinine are within reference range. Sodium 138 135 - 146 mmol/L [facility] Potassium, Bld 4.0 3.5 - 5.3 mmol/L [facility] Chloride 107 98 - 110 mmol/L [facility] Carbon Dioxide 22 20 - 32 mmol/L [facility] Calcium 9.7 8.6 - 10.2 mg/dL [facility] PROTEIN, TOTAL 7.1 6.1 - 8.1 g/dL [facility] ALBUMIN 4.4 3.6 - 5.1 g/dL [facility] GLOBULIN 2.7 1.9 - 3.7 g/dL (calc) [facility] ALBUMIN/GLOBULIN RATIO 1.6 1.0 - 2.5 (calc) [facility] BILIRUBIN, TOTAL 0.4 0.2 - 1.2 mg/dL [facility] ALKALINE PHOSPHATASE 73 31 - 125 U/L [facility] AST 14 10 - 30 U/L [facility] ALT 15 6 - 29 U/L [facility] Blood Venous blood specimen / Unknown 03/01/2025 4:23 PM EDT 03/01/2025 4:23 PM EDT Narrative Resulting Agency Comment Performing Organization Information Site ID: QPT Name: [facility] Address: [address] [place] [address], [address] [place] [phone] Director: Manuel Azar MD us Kimberly Arauz MD LAB BLOOD ORDERABLES Final Resul t Performing Organization Address [facility] Co de Phone Number [facility] * Metanephrines Plasma (02/28/2025 2:24 PM EDT) Blood Venous blood specimen / Unknown us Cristin Chandra MD LAB BLOOD ORDERABLES Final Re sult Performing Organization Address [facility]/ZIP Co de Phone Number [facility] * Cortisol, free (02/27/2025 8:02 AM EDT) Blood Venous blood specimen / Unknown us Timmy Smiley DO LAB BLOOD ORDERABLES Final Resul t Performing Organization Address [facility] Co de Phone Number EXTERNAL LAB * TSH W/REFLEX TO FT4 (02/15/2025 3:20 PM EDT) TSH W/REFLEX TO FT4 1.95 mIU/L [facility] Comment: Reference Range > or = 20 Years 0.40-4.50 Ranges First trimester 0.26-2.66 Second trimester 0.55-2.73 Third trimester 0.43-2.91 02/15/2025 3:20 PM EDT 02/15/2025 3:20 PM EDT Narrative [facility] - 02/16/2025 6:11 AM EDT FASTING:YES FASTING: YES Resulting Agency Comment Performing Organization Information Site ID: QPT Name: [facility] Address: [address] [place] [address], [address] [place] [phone] Director: Manuel Azar MD us Kimberly Arauz MD LAB BLOOD ORDERABLES Final Resul t [facility] * CBC (02/15/2025 3:20 PM EDT) WHITE BLOOD CELL COUNT 7.6 3.8 - 10.8 Thousand/u L [facility] RED BLOOD CELL COUNT 4.83 3.80 - 5.10 Million/uL [facility] HEMOGLOBIN 13.9 11.7 - 15.5 g/dL [facility] HEMATOCRIT 43.4 35.0 - 45.0 % [facility] MCV 89.9 80.0 - 100.0 fL [facility] MCH 28.8 27.0 - 33.0 pg [facility] MCHC 32.0 32.0 - 36.0 g/dL [facility] Comment: For adults, a slight decrease in the calculated MCHC value (in the range of 30 to 32 g/dL) is most likely not clinically significant; however, it should be interpreted with caution in correlation with other red cell parameters and the patient's clinical condition. RDW 14.3 11.0 - 15.0 % [facility] PLATELET COUNT 294 140 - 400 Thousand/u L [facility] MPV 12.3 7.5 - 12.5 fL [facility] Blood Venous blood specimen / Unknown 02/15/2025 3:20 PM EDT 02/15/2025 3:20 PM EDT Narrative [facility] - 02/16/2025 6:11 AM EDT FASTING:YES FASTING: YES Resulting Agency Comment Performing Organization Information Site ID: QPT Name: [facility] Address: [address] [place], [place] [address] [place] [address] Director: Manuel Azar MD Kimberly Arauz MD LAB BLOOD ORDERABLES Final Resul t [facility] * METANEPHRINES, FRAC., PL. FREE (01/23/2025 5:04 PM EDT) NORMETANEPHRINE, PL 118.9 0.0 - 210.1 pg/mL [facility] Comment: This test was developed and its performance characteristics determined by [facility]. It has not been cleared or approved by the Food and Drug Administration. METANEPHRINE, PL 55.6 0.0 - 88.0 pg/mL [facility] Comment: This test was developed and its performance characteristics determined by [facility]. It has not been cleared or approved by the Food and Drug Administration. Performed at: [address] [id number] Yarn Preparation Supervisor: Ashwin Rahman MD, Phone: [phone] 01/23/2025 5:04 PM EDT 01/23/2025 5:09 PM EDT Narrative [facility] - 02/07/2025 6:08 PM EDT Generic External Data Provider LAB BLOOD ORDERAB LES Final Result Performing Organization Address City/[facility]/ZIP Co de Phone Number [facility] TB * (ABNORMAL) ALDOSTERONE LCMS, SERUM (01/23/2025 4:40 PM EDT) ALDOSTERONE LCMS, SERUM 32.5(A) 0.0 - 30.0 ng/dL [facility] Comment: This test was developed and its performance characteristics determined by [facility]. It has not been cleared or approved by the Food and Drug Administration. Performed at: [address] [id number] Yarn Preparation Supervisor: Ashwin Rahman MD, Phone: [phone] 01/23/2025 4:40 PM EDT 01/23/2025 4:44 PM EDT Narrative [facility] - 01/28/2025 3:09 PM EDT [facility] External Data Provider LAB BLOOD ORDERAB LES Final Result Performing Organization Address City/[facility]/ZIP Co de Phone Number [facility] * (ABNORMAL) UH RENIN,PLASMA (01/23/2025 4:40 PM EDT) RENIN ACTIVITY, PLASMA 17.193(A) 0.167 - 5.380 ng/mL/hr TB Comment: This test was developed and its performance characteristics determined by [facility]. It has not been cleared or approved by the Food and Drug Administration. Performed at: [address] [id number] Yarn Preparation Supervisor: Ashwin Rahman MD, Phone: [phone] 01/23/2025 4:40 PM EDT 01/23/2025 4:44 PM EDT Narrative [facility] - 01/28/2025 2:09 PM EDT [facility] External Data Provider [facility] F inal Result Performing Organization Address [facility]/ZIP Co de Phone Number [facility] * CORTISOL, FREE DIALYSIS, LCMS (01/17/2025 8:50 AM EDT) CORTISOL, FREE DIALYSIS, LCMS 0.592 . ug/dL TB Comment: These tests were developed and their performance characteristics determined by [facility]. They have not been cleared or approved by the Food and Drug Administration. Reference Range: 8 AM 0.10 - 1.20 4 PM 0.042 - 0.872 Performed at: [facility] [address] [place] [id number] Yarn Preparation Supervisor: Lane Corbin MD, Phone: [phone] 01/17/2025 8:50 AM EDT 01/17/2025 9:08 AM EDT Narrative [facility] - 01/25/2025 3:09 PM EDT Generic External Data Provider LAB BLOOD ORDERAB LES Final Result Performing Organization Address City/[facility]/ZIP Co de Phone Number [facility] TB * UH SEROTONIN (01/17/2025 8:50 AM EDT) Pathologist [facility] SEROTONIN, SERUM 162 31 - 207 ng/mL [facility] Comment: This test was developed and its performance characteristics determined by [facility]. It has not been cleared or approved by the Food and Drug Administration. Performed at: [address] [id number] Yarn Preparation Supervisor: Ashwin Rahman MD, Phone: [phone] 01/17/2025 8:50 AM EDT 01/17/2025 9:08 AM EDT Narrative CLINIS[facility]VA - 01/23/2025 3:07 AM EDT [facility] Baljit DO CLINISYNC Final Result Performing Organization Address [facility] Phone Number [facility] TB * [facility] THYROID ANTIBODIES (01/17/2025 8:50 AM EDT) [facility] THYROID PEROXIDASE (TPO) AB <9 0 - 34 IU/mL [facility] THYROGLOBULIN ANTIBODY <1.0 0.0 - 0.9 IU/mL [facility] Comment: Thyroglobulin Antibody measured by [facility] It should be noted that the presence of thyroglobulin antibodies may not be pathogenic nor diagnostic, especially at very low levels. The assay numerical control drill press operator has found that four percent of individuals without evidence of thyroid disease or autoimmunity will have positive TgAb levels up to 4 IU/mL. Performed at: [address] [id number] Yarn Preparation Supervisor: Erik Douglas PhD, Phone: [phone] 01/17/2025 8:50 AM EDT 01/17/2025 9:08 AM EDT Narrative CLINIS[facility]NC - 01/23/2025 3:07 AM EDT Timmy Baljit DO CLINISYNC Final Result Performing Organization Address [facility] Co de Phone Number [facility] * [facility] THYROGLOBULIN (01/17/2025 8:50 AM EDT) THYROGLOBULIN (TG-PAULA) 7.3 . ng/mL [facility] Comment: This test was developed and its performance characteristics determined by [facility]. It has not been cleared or approved [...] quantitation limit is 2.0 ng/mL. Performed at: [facility] [address] [place] [id number] Yarn Preparation Supervisor: Lane Corbin MD, Phone: [phone] 01/17/2025 8:50 AM EDT 01/17/2025 9:08 AM EDT Narrative CLINIS[facility]NC - 01/25/2025 3:09 PM EDT Generic External Data Provider CLIN[facility]NC F inal Result Performing Organization Address [facility]/ZIP Co de Phone Number [facility] * TBH INSULIN (01/17/2025 8:50 AM EDT) INSULIN 6.9 2.6 - 24.9 uIU/mL [facility] Comment: Performed at: [address] [id number] Yarn Preparation Supervisor: Erik Douglas PhD, Phone: [phone] 01/17/2025 8:50 AM EDT 01/17/2025 9:08 AM EDT Narrative CLINISYNC - 01/23/2025 5:09 PM EDT us Timmy Smiley DO CLINISYNC Final Result [facility] * TBH GLUCOSE BLOOD (01/17/2025 8:50 AM EDT) GLUCOSE 89 74 - 106 mg/dL [facility] 01/17/2025 8:50 AM EDT 01/17/2025 9:08 AM EDT Narrative CLINISYNC - 01/17/2025 9:38 AM EDT Timmy Baljit DO CLINISYNC Final Result Performing Organization Address [facility]/ZIP Co de Phone Number [facility] * TBH ESTRONE (01/17/2025 8:50 AM EDT) ESTRONE, SERUM 82 27 - 231 pg/mL [facility] Comment: Range Adult (Premenopausal) 27 - 231 Menstrual Cycle (1-10 days) 19 - 149 Menstrual Cycle (11-20 days) 32 - 176 Menstrual Cycle (21-30 days) 37 - 200 Performed at: [address] [id number] Yarn Preparation Supervisor: Ashwin Rahman MD, Phone: [phone] 01/17/2025 8:50 AM EDT 01/17/2025 9:08 AM EDT Narrative CLINISYNC - 01/23/2025 5:09 PM EDT Timmy Knutsono DO CLINISYNC Final Result Performing Organization Address [facility] Co de Phone Number [facility] * CALCITRIOL(1,25 DI-OH VIT D) (01/17/2025 8:50 AM EDT) CALCITRIOL(1,25 DI-OH VIT D) 37.9 24.8 - 81.5 pg/mL [facility] Comment: Performed at: [address] [id number] Yarn Preparation Supervisor: Ashwin Rahman MD, Phone: [phone] 01/17/2025 8:50 AM EDT 01/17/2025 9:08 AM EDT Narrative CLINISYNC - 01/23/2025 3:07 AM EDT Timmy Baljit DO LAB BLOOD ORDERABLES Final Resul t [facility] * [facility] TESTOSTERONE FREE/TOT EQUILIB (01/17/2025 8:50 AM EDT) [facility] TESTOSTERONE 22 13 - 71 ng/dL TB FREE TESTOSTERONE(DIRE CT) 0.3 0.0 - 4.2 pg/mL [facility] Comment: Performed at: - [facility] [id number] Yarn Preparation Supervisor: Erik Douglas PhD, Phone: [phone] Performed at: [facility] [id number] Yarn Preparation Supervisor: Ashwin Rahman MD, Phone: [phone] 01/17/2025 8:50 AM EDT 01/17/2025 9:08 AM EDT Narrative CLINISYNC - 01/23/2025 3:07 AM EDT Timmy Knutsono DO CLINISYNC Final Result [facility] * MLR HEMOGLOBIN A1C (01/17/2025 8:50 AM EDT) [facility] GLYCOHEMOGLOBIN A1C 4.6 4.5 - 6.2 % [facility] Comment: ADA RECOMMENDED LIMIT 4.0 - 6.0 ADA THERAPEUTIC TARGET < 7.0 ACTION SUGGESTED > 7.0 ESTIMATED AVERAGE GLUCOSE 85 mg/dL TB 01/17/2025 8:50 AM EDT 01/17/2025 9:08 AM EDT Narrative CLINISYNC - 01/17/2025 9:31 AM EDT Timmy Baljit DO CLINISYNC Final Result [facility] CAMPUS * (ABNORMAL) METRO SEX BINDING HORMONE (SHBG), TESTOSTERONE, FREE AND BIOAVAILABLE (01/17/2025 8:50 AM EDT) [facility] SEX HORM BINDING GLOB, SERUM 185.0(A) 24.6 - 122.0 nmol/L TBH Comment: Performed at: - [address] [id number] Yarn Preparation Supervisor: Erik Douglas PhD, Phone: [phone] 01/17/2025 8:50 AM EDT 01/17/2025 9:08 AM EDT Narrative CLINISYNC - 01/23/2025 3:07 AM EDT us Timmy Baljit DO CLINISYNC Final Result CLINISYNC TB * [facility] FERRITIN (01/17/2025 8:50 AM EDT) FERRITIN 196.0 8.0 - 252.0 ng/mL TBH 01/17/2025 8:50 AM EDT 01/17/2025 9:08 AM EDT Narrative CLINISYNC - 01/17/2025 11:23 AM EDT Timmy Baljit DO CLINISYNC Final Result Performing Organization Address City/[facility]/ZIP Co de Phone Number CLINISYNC TB * ALL THYROXINE (T4) FREE (01/17/2025 8:50 AM EDT) FREE T4 1.39 0.76 - 1.46 ng/dL TBH 01/17/2025 8:50 AM EDT 01/17/2025 9:08 AM EDT Narrative CLINISYNC - 01/17/2025 11:23 AM EDT Timmy Baljit DO CLINISYNC Final Result CLINISYNC TB * ALL THYROXINE (T4) (01/17/2025 8:50 AM EDT) T4 THYROXINE 7.10 4.80 - 13.90 ug/dL TBH 01/17/2025 8:50 AM EDT 01/17/2025 9:08 AM EDT Narrative CLINISYNC - 01/17/2025 9:38 AM EDT us Timmy Baljit DO CLINISYNC Final Result CLINISYNC TB * ALL THYROID STIM HORMONE (01/17/2025 8:50 AM EDT) THYROID STIMULATING HORMONE 1.589 0.358 - 3.740 uIU/mL TBH 01/17/2025 8:50 AM EDT 01/17/2025 9:08 AM EDT Narrative CLINISYNC - 01/17/2025 9:38 AM EDT us Timmy Baljit DO CLINISYNC Final Result Performing Organization Address City/[facility]/ZIP Co de Phone Number CLINISYNC TB * ALL T3 REVERSE (01/17/2025 8:50 AM EDT) REVERSE T3, SERUM 16.4 9.2 - 24.1 ng/dL TBH Comment: This test was developed and its performance characteristics determined by [facility]. It has not been cleared or approved by the Food and Drug Administration. Performed at: [address] [id number] Yarn Preparation Supervisor: Ashwin Rahman MD, Phone: [phone] 01/17/2025 8:50 AM EDT 01/17/2025 9:08 AM EDT Narrative CLINISYNC - 01/23/2025 3:07 AM EDT us Timmy Baljit DO CLINISYNC Final Result CLINISYNC TB * ALL T3 FREE (01/17/2025 8:50 AM EDT) FREE T3 3.10 2.18 - 3.98 pg/mL TBH 01/17/2025 8:50 AM EDT 01/17/2025 9:08 AM EDT Narrative CLINISYNC - 01/17/2025 9:38 AM EDT [facility] Final Result Performing Organization Address [facility]/ZIP Co de Phone Number [facility] * ALL PROGESTERONE (01/17/2025 8:50 AM EDT) PROGESTERONE 0.1 . ng/mL TBH Comment: Follicular phase 0.1 - 0.9 Luteal phase 1.8 - 23.9 Ovulation phase 0.1 - 12.0 First trimester 11.0 - 44.3 Second trimester 25.4 - 83.3 Third trimester 58.7 - 214.0 Postmenopausal 0.0 - 0.1 01/17/2025 8:50 AM EDT 01/17/2025 9:08 AM EDT Narrative CLINISYNC - 01/23/2025 3:07 AM EDT [facility] Final Result Performing Organization Address [facility] Phone Number [facility] * ALL ESTRONE(E1) (01/17/2025 8:50 AM EDT) ESTRADIOL 193.0 . pg/mL TB Comment: Adult Female Range Follicular phase 12.5 - 166.0 Ovulation phase 85.8 - 498.0 Luteal phase 43.8 - 211.0 Postmenopausal <6.0 - 54.7 1st trimester 215.0 - >4300.0 Nataliia ECLIA methodology 01/17/2025 8:50 AM EDT 01/17/2025 9:08 AM EDT Narrative CLINISYNC - 01/23/2025 3:07 AM EDT [facility] Final Result Performing Organization Address [facility]/ZIP Co de Phone Number [facility] * ALL DHEA SULFATE (01/17/2025 8:50 AM EDT) DHEA-SULFATE 116.0 84.8 - 378.0 ug/dL TBH 01/17/2025 8:50 AM EDT 01/17/2025 9:08 AM EDT Narrative CLINISYNC - 01/23/2025 3:07 AM EDT Timmy Baljit DO CLINISYNC Final Result CLINISYNC TB * ALL C-PEPTIDE (01/17/2025 8:50 AM EDT) C-PEPTIDE, SERUM 2.5 1.1 - 4.4 ng/mL TBH Comment:C-Peptide reference interval is for fasting patients. 01/17/2025 8:50 AM EDT 01/17/2025 9:08 AM EDT Narrative CLINISYNC - 01/23/2025 5:09 PM EDT Timmy Baljit DO CLINISYNC Final Result CLINISYNC TB from Last 3 Months Insurance [facility] [place] [phone] Care Teams Automatic Folder Seamer Relationship Specialty Start Date End Date Kimberly Arauz MD [address] [address] PCP - General Family Medicine 01/20/23 Gonzales Still LPC Echo Technician Supervisor Dry Cleaning 10/02/24
--- OUTSIDE RECORDS SUMMARY | 2025-04-05 09:45 | XMS_ITS | Encounter Summary ---
Author Organization [facility] Address [address] [place] [address] Care Team Providers Care Landscape Architect And Planner Name Role Phone Kimberly Arauz MD Primary Care Provider Gonzalse Still GENERAL SUPERINTENDENT Unavailable Unava ilable Encounter Details Date Type Department Care Team (Late st Contact Info) Description 01/21/2023 Abstract [facility] [address] [facility] [address] [place] [address] Minoo Barbour PA 112 [facility] 110 [place] [address] Social History Tobacco Use Types Packs/Day Years [...] Office [place] [address] Timmy Smiley DO [address] [place] [address] 05/21/2025 1:10 PM EDT Office Visit [facility] [address] [place] [address] Cristin Chandra MD [address] [place] [address] documented as of this encounter Visit Diagnoses Not on filedocumented in this encounter Care Teams Landscape Architect And Planner Relationship Specialty Start Date End Date Kimberly Arauz MD 112 [facility] 110 [place] [address] PCP - General Family Medicine 01/20/23 Gonzales Still LPC Biodiesel Processing Technician Director Of [facility] 10/02/24 documented as of this encounter
--- OUTSIDE RECORDS SUMMARY | 2025-04-05 09:45 | XMS_ITS | Encounter Summary ---
Author Organization [employer] Address [facility] [id number] [address] [place] [address] Care Team Providers Care Tanyard Worker Name Role Phone Kimberly Arauz MD Primary Care Provider [phone] Encounter Details Date Type Department Care Team (Late st Contact Info) Description 12/12/2024 Telephone [facility] [address] [place] [phone] Pinky Ramos CMA Social History Tobacco Use Types Packs/Day Years Used Date Smoking Tobacco: Every Day Cigarettes Smokeless Tobacco: Never Alcohol Use Standard Drinks/Week Comments Not Currently 0 (1 standard drink = 0.6 oz pur e alcohol) [facility] Utilities Answer Date Recorded In the past 12 months has e [employer], gas, oil, or water [email or web address] threatened to shut off services in your [...] documented as of this encounter Care Teams Tanyard Worker Relationship Specialty Start Date End Date Kimberly Arauz MD [address] [place] [address] [place] [address] PCP - General Family Medicine 02/13/25 documented as of this encounter
--- OUTSIDE RECORDS SUMMARY | 2025-04-05 09:45 | XMS_ITS | Encounter Summary ---
Author Organization [email or web address] [facility] Address [facility] [id number] [address] [place] [address] Care Team Providers Care Granulator Tender Name Role Phone Kimberly Arauz MD Primary Care Provider [phone] Encounter Details Date Type Department Care Team (Late st Contact Info) Description 12/15/2024 Telephone [facility] [address] [place] [phone] Pinky Ramos CMA Social History Tobacco Use Types Packs/Day Years Used Date Smoking Tobacco: Every Day Cigarettes Smokeless Tobacco: Never Alcohol Use Standard Drinks/Week Comments Not Currently 0 (1 standard drink = 0.6 oz pur e alcohol) [facility] Utilities Answer Date Recorded In the past 12 months has [employer], gas, oil, or water [employer] threatened to shut off services in [...] documented as of this encounter Care Teams Granulator Tender Relationship Specialty Start Date End Date Kimberly Arauz MD [address] [place] [place] [address] PCP - General Family Medicine 02/13/25 documented as of this encounter
--- OUTSIDE RECORDS SUMMARY | 2025-04-05 09:45 | XMS_ITS | Encounter Summary ---
Author Organization [employer] Address [id number] [address] [place] [address] Care Team Providers Care Skin Fitter Name Role Phone Kimberly Arauz MD Primary Care Provider [phone] Reason for Visit * Reason Onset Date Comments Hospital Follow-up 12/06/2024 Encounter Details Date Type Department Care Team (Late st Contact Info) Description [facility] [address] [place] [address] [facility] Follow-up Social History Tobacco Use Types Packs/Day Years Used Date Smoking Tobacco: Every Day Cigarettes Smokeless Tobacco: Never Alcohol Use Standard Drinks/Week Comments Not Currently 0 (1 standard drink = 0.6 oz pur e alcohol) [facility] Utilities Answer Date Recorded In the past 12 months has [employer], gas, oil, or water [employer] threatened to shut off services in your [...] MMM. He signed off patient care from [facility] Dx 1. Bradycardia seems to be [...] documented as of this encounter Care Teams Skin Fitter Relationship Specialty Start Date End Date Kimberly Arauz MD [address] [address] PCP - General Family Medicine 02/13/25 documented as of this encounter
--- OUTSIDE RECORDS SUMMARY | 2025-04-05 09:45 | XMS_ITS | Encounter Summary ---
Author Organization [facility] Address [address] [address] Care Team Providers Care Tube Bender Name Role Phone Kimberly Arauz MD Primary Care Provider Gonzales Still INSTRUMENT TECHNICIAN Unavailable Unava ilable Encounter Details Date Type Department Care Team (Late st Contact Info) Description 01/25/2023 Orders Only [facility] [address] [facility] [address] [place] [address] Minoo Barbour PA [address] [facility] [address] [place] [address] Social History Tobacco Use Types Packs/Day Years [...] [facility] [place] [address] Timmy Smiley, [address] [facility] [place] [address] 05/21/2025 1:10 PM EDT [facility] [address] [place] [address] Cristin Chandra MD [address] [place] [address] documented as of this encounter Procedures Procedure Name Priority Date/Time Associated Diagnosis Comments SCANNED LABS Routine 01/23/2023 11:05 AM EDT documented in this encounter Results * SCANNED LABS (01/23/2023 11:05 AM EDT) Minoo Barbour PA LAB CHG PERFORMABLES Final Res ult documented in this encounter Visit Diagnoses Not on filedocumented in this encounter Care Teams Tube Bender Relationship Specialty Start Date End Date Kimberly Arauz MD [address] [facility] [address] [place] [address] PCP - General Family Medicine 01/20/23 Gonzales Still LPC Dairy Inspector Furnace Roaster 10/02/24 documented as of this encounter
--- OUTSIDE RECORDS SUMMARY | 2025-04-05 09:49 | XMS_ITS | CCD ---
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 Name Role Phone AlonsoKati Unavailable Casa Wahl Unavailable [phone] Unknown, Referring Provider Unavailable Unav ailable Unavailable Unavailable [facility] Primary Care Unavailable BALJIT ., DR MORALES Attending Unavailable BALJIT ., DR MORALES Admitting Unavailable DIAZ, ELAN Consulting Unavailable [facility] Primary Care Unavailable BALJIT ., DR MORALES Consulting Unavailable BALJIT ., DR MORALES Attending Unavailable BALJIT ., DR MORALES Admitting Unavailable [facility] Primary Care Unavailable BALJIT ., DR MORALES [...] Unavailable YONNY, DR OLIVEIRA Primary Care Unavailable [facility] Primary Care Unavailable BALJIT ., DR MORALES Attending Unavailable BALJIT ., DR MORALES Admitting Unavailable BALJIT ., DR MORALES Admitting Unavailable BALJIT ., DR MORALES Attending Unavailable [facility] Primary Care Unavailable CORUNNA, DR KATI Moore Consulting Unavailable BALJIT ., DR MORALES Consulting Unavailable [facility] Primary Care Unavailable BALJIT ., DR MORALES [...] DUFFY LISTED Admitting Unavaila ble REQUEST, DR DUFFY LISTED Consulting Unavaila ble HYDEX PEACE, KATI Bloom Attending Unavailable HYKES JR, KATI Bloom Admitting Unavailable [facility] Primary Care Unavailable HYKES JR, KATI Bloom Consulting Unavailable [facility] Primary Care Unavailable BALJIT ., DR [...] Unavailable YONNY, DR OLIVEIRA Primary Care Unavailable JED RODRIGUEZ Consulting Unavailable LORRI MAURICIO Consulting Unavailable SEAMON, CRISTINA Bloom Consulting Unavailable [facility] Care Unavailable BALJIT ., DR MORALES Consulting Unavailable BALJIT ., DR MORALES Attending Unavailable BALJIT ., DR MORALES Admitting Unavailable ARACELI ., RIVER Attending Unavailable ARACELI ., RIVER Admitting Unavailable SAGE, YING Consulting Unavailable YONNY, DR OLIVEIRA Primary Care Unavailable ARACELI ., RIVER Consulting Unavailable ZIEBER, DR SPENSER Stewart Consulting Unavailable HAY ., DR LAZARO Admitting Unavailable HAY ., DR LAZARO Attending Unavailable YONNY, DR OLIVEIRA Primary Care Unavailable HAY ., DR LAZARO Consulting Unavailable UNKNOWN, PCP Primary Care Unavailable MATEO DASH Attending Unavailab bob Cervantes Jr, Dr. Layne Rucker Referring U navailable EKTAMATEO Guo Attending Unavailab le EKTAMATEO Referring Unavailab le UNKNOWN, PCP Primary Care Unavailable MATEO DASH Attending Unavailab le UNKNOWN, PCP Primary Care Unavailable MATEO DASH Admitting Unavailab le EKTAMATEO Guo Attending Unavailab le EKTAMATEO Referring Unavailab le UNKNOWN, PCP Primary Care Unavailable Unavailable Primary Care Provider Imelda Blancas MD, Tee Goff Primary Care Provider [phone] NO FAMILY, PHYSICIAN Primary Care Provider Unava MD Kati Franklin V Attending Provider Tee Blancas MD Primary Care Provider Tessy Gonzales HUDSON Unavailable Unava ilable Dilia Cleary DO Emergency Provider [phone] NO FAMILY, PHYSICIAN Primary Care Provider Unava ilable Tee Blancas MD Primary Care Provider PROVIDER, UNKNOWN Attending Unavailable PROVIDER, UNKNOWN Admitting Unavailable YONNY, RUGEN M Primary Care Physician Ulisses Serrano. Attending Unavailable YONNY, RUGEN M Primary Care Unavailable ABY JARQUIN Admitting Unavailable MAHSA REAGAN JR Consulting Unavailable MARTINEZ MONGE Attending Unavailable [facility]IOLOG[facility] Consulting Unavailable CHANA HAQ Consulting Unavailable MAINOR HEARD Consulting Unavailable ALVARO WOMACK Referring Unavailable YONNY, RUGEN M Primary Care Unavailable YONNY, RUGEN M Referring Unavailable YONNY, RUGEN M Primary Care Unavailable YONNY, RUGEN M Referring Unavailable YONNY, RUGEN M Primary Care Unavailable YONNY, RUGEN M Referring Unavailable YONNY, RUGEN M Primary Care Unavailable YONNY, RUGEN M Referring Unavailable YONNY, RUGEN M Primary Care Unavailable ALVARO WOMACK Referring Unavailable YONNY, RUGEN M Primary Care Unavailable ALVARO WOMACK Referring Unavailable YONNY, RUGEN M Primary Care Unavailable BAYRON CANTU Referring Marlyn vailable YONNY, RUGEN M Primary Care Unavailable CAROLE FRANKLIN Attending Unavailable YONNY, RUGEN M Referring Unavailable YONNY, RUGEN M Primary Care Unavailable Kvng Reynoso MD Attending Provider Tee Blancas MD Primary Care Provider [phone] YONNY, RUGEN M Primary Care Unavailable YONNY, RUGEN M Primary Care Unavailable SPENSER BARROSO Attending Unavailable SPENSER BARROSO Attending Unavailable SPENSER BARROSO Referring Unavailable YONNY, RUGEN M Primary Care Unavailable YONNY, RUGEN M Primary Care Unavailable CAROLINE SYED Attending Unavailable YONNY, RUGEN M Primary Care Unavailable SIOMARA BOLAÑOS Admitting Unavailable BOLAÑOSSIOMARA Dickson Attending Unavailable YONNY, TEE M Primary Care Unavailable ANGELES, KVNG Referring Unavailable YONNY, RUGEN M Primary Care Unavailable YONNY, RUGASHER M Referring Unavailable YONNY, RUGEN M Primary Care Unavailable Evin Dilia Merle Attending Unavailable Dilia Cleary Admitting Unavailable NO FAMILY, PHYSICIAN Primary Care Unavailable HEMMICHAEL, MINOO Goff Attending Unavailable KARINA-MORIN, RHANDA Attending Unavailab le HEMMER, MINOO M Referring Unavailable YONNY, TEE M Attending Unavailable KARINA-MORIN, RHANDA Attending Unavailab le KARINA-MORIN, RHANDA Attending Unavailab le KARINA-MORIN, RHANDA Attending Unavailab le BALJIT, TIMMY Attending Unavailable BALJIT, TIMMY Attending Unavailable HEMMER, MINOO M Attending Unavailable YONNY, TEE M Attending Unavailable YONNY, TEE M Attending Unavailable BALJIT, TIMMY Attending Unavailable KARINA-MORIN, RHANDA Attending Unavailab le KARINA-MORIN, RHANDA Attending Unavailab le YONNY, TEE M Attending Unavailable CRISTIN CHANDRA Attending Unavailable FABIAN COCHRAN Referring Unavailable BALJIT, TIMMY Attending Unavailable YONNY, TEE Goff Attending Unavailable BALJIT, TIMMY Attending Unavailable Ulisses Serrano Attending Unavailable FABIAN COCHRAN Referring Unavailable BAILEE FULLER Attending Unavailable SARAH, FABIAN Attending Unavailable Allergies Allergy Classification Reported Allergen(s) Allergy Type Date of Onset Reaction(s) Facility (12 sources) ALPRAZolam; Translations: [ALPRAZOLAM] Drug Allergy Unknown, Itching [facility] (5 sources) Codeine Drug Allergy rash [employer] [facility] [employer] Other (20 sources) FLUoxetine; Translations: [FLUOXETINE] Drug Allergy Unknown, Unknown Reaction [facility] (20 sources) hydrOXYzine; Translations: [HYDROXYZINE] Drug Allergy Unknown [place] Other (20 sources) methylPREDNISolone; Translations: [METHYLPREDNISOLONE] Drug Allergy Rash [facility] Other (20 sources) metroNIDAZOLE; Translations: [Flagyl] Drug Allergy 07-02-2 020 hives, Rash [place] Other (1 source) Acetaminophen / HYDROcodone Drug Allergy [facility] Repository (1 source) busPIRone Drug Allergy [facility] Repository (4 sources) Codeine; Translations: [CODEINE] Drug Allergy rash [facility] Repository (1 source) hydrOXYzine Drug Allergy [facility] Repository (2 sources) methylPREDNISolone Drug Allergy [facility] Repository (6 sources) metroNIDAZOLE; Translations: [Flagyl] Drug Allergy [facility] Repository (2 sources) Nitrous Oxide Drug Allergy [facility] Repository (2 sources) rescinnamine Drug Allergy [facility] Repository (20 sources) Alprazolam Allergy to substance 023 Itching [facility] Healthcare Work Phone: (20 sources) Bisacodyl; Translations: [BISACODYL] Drug Allergy Rash [facility] Healthcare (20 sources) busPIRone; Translations: [BUSPIRONE] Drug Allergy Unknown [facility] Healthcare (20 sources) Basil Oil Allergy to substance [facility] Healthcare (14 sources) basil allergenic extract; Translations: [BASIL] Drug Allergy Numbness [facility] (20 sources) Codeine Drug Allergy Rash [facility] (12 sources) hydrOXYzine; Translations: [HYDROXYZINE PAMOATE] Drug Allergy 021 [employer] (5 sources) predniSONE; Translations: [prednisone] Drug Allergy Itch [facility] (4 sources) No Known Medication Allergies; Translations: [No Known Medication Allergies] Propensity to adverse reactions (disorder) [facility] Repository (1 source) busPIRone Drug Allergy [facility] Repository (1 source) FLUoxetine Drug Allergy [facility] Repository (1 source) hydrOXYzine Drug Allergy [facility] Repository (1 source) methylPREDNISolone Drug Allergy [facility] Repository (1 source) metroNIDAZOLE Drug Allergy [facility] Repository Medications Current Medications Medication Drug Class(es) Dates Sig (Normalized) Sig (Original) acetaminophen 325 mg oral tablet (7 sources) Start: 02-08-2025 take 1 tablet by mouth every six hours as needed for pain and headache and fever 650 mg, oral, Every 6 hours PRN, mild pain - pain scale 1-3, headaches, temperature greater than 38 C, Starting on [facility] 02/08/25 at 2039 Start: 02-08-2025 End: 02-08-2025 1,000 mg, intravenous, at 40 0 mL/hr, Administer over 15 Minutes, Once, On [facility] 02/08/25 at 1905, For 1 dose take 1 tablet by freda every four hours Tylenol 325 MG 1 tablet as needed Orally every 4 hrs Active 200 actuat albuterol 0.09 mg/actuat dry powder inhaler (20 sources) beta2-Adrenergic Agonist Start: 05-22-2024 End: 05-22-2024 take 1 puff(s) by inhalation every four hours for wheezing albuterol (ProAir RespiClick) 90 mcg/act breath-activated inhaler Indications: Acute asthma (HCC) Inhale 1 puff every 4 (four) hours if needed for wheezing or shortness of breath 1 each 3 05/22/2024 Active Start: 05-22-2024 take 1 puff(s) by in halation every four hours as needed PROAIR RESPICLICK 90 mcg/actuation aerosol powdr breath activated Inhale 1 puff every 4 (four) hours as needed. 05/22/2024 Active ALPRAZolam 0.5 mg oral tablet (20 sources) Benzodiazepine Start: 02-15-2025 End: 04-18-2025 take 1 tablet by mouth in the morning ALPRAZolam (Xanax) 0.5 MG tablet Indications: Anxiety Take 1 tablet (0.5 mg) by mouth in the morning and 1 tablet (0.5 mg) before bedtime. 60 tablet 03/19/2025 04/18/2025 Active Start: 01-02-2025 End: 01-11-2025 take 2 tablets [...] (0.5 mg) before bedtime. 60 tablet 01/11/2025 Active amitriptyline hydrochloride 25 mg oral tablet (3 sources) Tricyclic Antidepressant Start: 12-16-2021 take 1 tablet by mouth every twenty-four hours Amitriptyline HCl 25 MG 1 tablet at bedtime Orally Once a day for 30 day(s) December, Active ARIPiprazole 2 mg oral tablet (20 sources) Atypical Antipsychotic Start: 02-09-2025 take 5 mg by mouth once daily 5 mg, oral, Daily, First dose on Wed02/09/25 at 0900, Look-alike/sound- alike medication - verify indication for use. Start: 10-09-2024 End: 11-23-2024 take 2 tablets by mouth once daily ARIPiprazole (Abilify) 5 MG tablet Indications: Bipolar disorder, in full remission, most recent episode manic (HCC) , Manic episode, unspecified (HCC) , Bipolar II disorder (HCC) Take 2 tablets (10 mg) by mouth Daily 180 tablet 1 11/23/2024 Active Start: 08-17-2023 End: 10-09-2024 take 1 tablet by mouth in the morning ARIPiprazole (ABILIFY) 5 mg tablet Take 1 tablet (5 mg total) by mouth in the morning. 08/17/2023 Active Start: 06-08-2023 Abilify 2 MG t ablet 1 (one) time each day at the same time. 0 06/08/2023 Active aspirin 81 mg delayed release oral tablet (20 sources) Platelet Aggregation Inhibitor, Nonsteroidal Anti-inflammatory Drug Start: 12-13-2024 End: 03-20-2025 take 1 tablet by mouth once as needed Aspirin 81 mg tablet,delayed release (DR/EC) Active 81 MG PO Once as needed February 22, 2025 12:00am Complies with drug therapy cephalexin 500 mg oral capsule (10 sources) Cephalosporin Antibacterial Start: 11-23-2024 End: 11-30-2024 take 1 capsule by mouth in the [...] days. 21 capsule 0 09/06/2023 09/13/2023 Active Start: 04-25-2018 End: 05-02-2018 take 1 capsule by mouth three times daily Cephalexin (Keflex) 500 mg capsule Discontinued 500 MG PO Three times daily 21 7 April 25, 2018 12:00am May 01, 2018 12:00am May 02, 2018 12:01am dicyclomine hydrochloride 20 mg oral tablet (8 sources) Anticholinergic Start: 01-01-2022 take 1 tablet by mouth every eight hours Dicyclomine HCl 20 MG 1 tablet Orally Three times a day for 30 day(s) December, Active Start: 05-23-2018 End: 10-28-2020 take 1 tablet by mouth four times daily Dicyclomine 20 mg tablet Discontinued 20 MG PO Four times daily May 23, 2018 12:00am October 28, 2020 2:35pm Start: 04-21-2018 End: 04-25-2018 Dicyclomine 20 mg tablet Discontinued April 21, 2018 12:00am April 25, 2018 4:48pm Start: 04-21-2018 End: 04-25-2018 Dicyclomine 20 mg tablet Discontinued TABLET April 21, 2018 12:00am April 25, 2018 4:48pm 0.4 ml enoxaparin sodium 100 mg/ml prefilled syringe (1 source) Low Molecular Weight Heparin Start: 02-09-2025 40 mg, subcutaneous, Daily, First dose on Wed02/09/25 at 0600, When Creatinine Clearance 30 mL/min or greater Look-alike/sound-alike medication - verify indication for use. ergocalciferol 1.25 mg oral capsule (20 sources) Provitamin D2 Compound Start: 11-02-2024 End: 10-04-2025 take 1 capsule by mouth every week ergocalciferol (Vitamin D-2) 1.25 MG (63769 UT) capsule Indications: Vitamin D deficiency Take 1 capsule (1.25 mg) by mouth 1 (one) time per week 12 capsule 3 11/02/2024 10/04/2025 Active Start: 11-02-2024 End: 10-04-2025 take 1 capsule by mouth every week ergocalciferol (DRISDOL) 1,250 mcg (50,000 unit) capsule Take 1 capsule (50,000 Units total) by mouth once a week. 11/02/2024 10/04/2025 Active Start: 11-02-2024 End: 10-04-2025 ergocalciferol (DRISDOL) 1,2 50 mcg (50,000 unit) capsule Take 1 capsule (50,000 Units total) by mouth. 11/02/2024 10/04/2025 Active eszopiclone 2 mg oral tablet (5 sources) Start: 08-31-2024 eszopiclone (L unesta) 2 MG tablet Indications: Insomnia due to [...] (20 sources) Anticholinergic, Corticosteroid, beta2-Adrenergic Agonist Start: 09-23-2024 take 1 puff(s) by inhalation in the morning TRELEGY ELLIPTA 100-62.5-25 mcg blister with device Inhale 1 puff in the morning. 09/23/2024 Active Start: 05-22-2024 End: 09-23-2024 take 1 puff(s) by inhalation once daily Bhqgevyhbuf-Bzrsshven-Mdqide (Trelegy Ellipta) 100-62.5-25 MCG/ACT aerosol powder Indications: Acute asthma (HCC) Inhale 1 puff Daily 60 each 5 09/23/2024 Active fluticasone furoate-vilanteroL (BREO ELLIPTA) 100-25 mcg/dose inhaler 1 puff (1 source) Start: 02-09-2025 fluticasone furoate-vilanteroL (BREO ELLIPTA) 100-25 mcg/dose inhaler 1 puff glucagon (rdna) 1 mg injection (1 source) Antihypoglycemic Agent Start: 02-08-2025 1 mg, intramuscular, As needed, low blood sugar, blood glucose less than 70 mg/dL and unconscious or NPO without IV access., Starting on [facility] 02/08/25 at 2036, If conscious and not NPO, immediately follow with meal tray or high protein (7Grams) snack if tray not available. If NPO, initiate IV 5% Dextrose/Water at 100 mL/hr and contact prescriber for additional orders. If blood glucose is not greater than 70 mg/dL after initial treatment, repeat treatment. 150 ml glucose 50 mg/ml injection (3 sources) Start: 02-08-2025 15 g, oral, As needed, low blood sugar, blood glucose less than 70 mg/dL, Starting on [facility] 02/08/25 at 2036, If patient conscious and taking PO. If blood glucose is not greater than 70 mg/dL after initial treatment, repeat treatment. Start: 02-08-2025 25 mL, intrave nous, As needed, low blood sugar, blood glucose less than 70 mg/dL and unconscious or NPO with IV access, Starting on [facility] 02/08/25 at 2036, Push over 1-3 minutes STAT. If conscious and not NPO, immediately follow with meal tray or high protein (7 grams) snack if tray not available. If NPO, initiate 5% dextrose in water at 100 mL/hr and contact prescriber for additional orders. If blood glucose is not greater than 70 mg/dL after initial treatment, repeat treatment. VESICANT (RED) Warning: HYPERTONIC solution. Start: 02-08-2025 End: 02-09-2025 take 70 mg intravenously every hour 100 mL/hr, intravenous, Continuous PRN, blood glucose less than 70 mg/dL, Starting on [facility] 02/08/25 at 2036, For 1 day, Use immediately following dextrose 50% or glucagon treatment for patients who are unconscious or NPO. Contact prescriber for additional orders. If blood glucose is not greater than 70 mg/dL after initial treatment, repeat treatment. 1 ml hydrALAZINE hydrochloride 20 mg/ml injection (1 source) Arteriolar Vasodilator Start: 02-08-2025 take 10 mg intravenously every six hours as needed 10 mg, intravenous, Every 6 hours PRN, high blood pressure, for SBP > 180, Starting on [facility] 02/08/25 at 2255, Look-alike/sound-alike medication - verify indication for use. Administer IV doses as a slow IV push; maximum rate: 5 mg/minute. ibuprofen 800 mg oral tablet (20 sources) Nonsteroidal Anti-inflammato ry Drug Start: 08-30-2020 End: 10-15-2023 take 1 tablet by mouth three times daily ibuprofen (ADVIL,MOTRIN) 800 mg tablet Take 1 tablet (800 mg total) by mouth 3 (three) times a day. 21 tablet 0 08/30/2020 10/15/2023 Discontinued End: 02-15-2025 take 1 tablet by mouth every eight hours as needed for pain and pain ibuprofen (IBU) 800 MG tablet Take 800 mg by mouth every 8 (eight) hours if needed for mild pain or moderate pain. 02/15/2025 Discontinued lamoTRIgine 25 mg oral tablet (2 sources) Mood Stabilizer, Anti-epileptic Agent Start: 08-17-2023 lamoTRIgine (LaMICtal) 25 MG tablet take 1 tablet every morning for 2 weeks then take 2 tablets every... (REFER TO PRESCRIPTION NOTES). 0 08/17/2023 Active lidocaine 0.05 mg/mg medicated patch (6 sources) Antiarrhythmic, Amide Local Anesthetic Start: 12-13-2024 apply 1 dose transdermal route every twelve hours in the morning lidocaine (LIDODERM) 5 % Place 1 patch on the skin in the morning. Remove & Discard patch within 12 hours or as directed by MD. 30 patch 12/13/2024 Active linaclotide 0.145 mg oral capsule (20 sources) Guanylate Cyclase-C Agonist Start: 12-28-2024 End: 02-14-2026 take 1 capsule by mouth before mealtime linaCLOtide (Linzess) 145 MCG capsule Indications: Drug-induced constipation Take 1 capsule (145 mcg) by mouth in the morning. Take before meals. Do not crush or chew. 30 capsule 11 02/14/2025 02/14/2026 Active lisinopril 10 mg oral tablet (17 sources) Angiotensin Converting Enzyme Inhibitor Start: 02-09-2025 take 1 tablet by mouth in the morning lisinopril 10 MG tablet Take 10 mg by mouth in the morning. 02/09/2025 Active LORazepam 0.5 mg oral tablet (20 [...] needed Orally Once a day PRN Active 50 ml magnesium sulfate 40 mg/ml injection (2 sources) Start: 02-08-2025 2,000 mg, intr avenous, at 25 mL/hr, Administer over 120 Minutes, As needed, Magnesium level 1.7 to 1.9 mg/dL, or Ionized Magnesium level 0.45 to 0.5 mmol/L., Starting on [facility] 02/08/25 at 2036, Recheck magnesium level 4 hours after infusion complete. With each magnesium result continue the replacement orders as needed. Start: 02-08-2025 4,000 mg, intr avenous, at 25 mL/hr, Administer over 240 Minutes, As needed, Magnesium level 1.6 mg/dL or less, or Ionized Magnesium level 0.44 mmol/L or less, Starting on [facility] 02/08/25 at 2036, Recheck magnesium level 4 hours after infusion complete. With each magnesium result continue the replacement orders as needed. 24 hr metoprolol succinate 25 mg extended release oral tablet (17 sources) beta-Adrenergic Itzel Start: 02-22-2025 take 1 tablet by mouth every twenty-four hours Metoprolol Succinate 25 mg tablet extended release 24 hr Active 25 MG PO Once February 22, 2025 12:00am Complies with drug therapy Start: 02-09-2025 take 25 mg by mouth once daily 25 mg, oral, Daily, First dose on Wed02/09/25 at 0900, Look-alike/sound-alike medication - verify indication for use. Do not crush or chew. naloxone (NARCAN) 4 mg/actua tion spray,non-aerosol nasal spray (6 sources) Start: 12-12-2024 naloxone (NARC AN) 4 mg/actuation spray,non-aerosol nasal spray Administer 1 spray (4 mg total) into alternating nostrils as needed for opioid reversal. 4 each 12/12/2024 Suspended Start: 12-12-2024 naloxone (NARC AN) 4 mg/actuation spray,non-aerosol nasal spray Administer 1 spray (4 mg total) into alternating nostrils as needed for opioid reversal. 4 each 12/12/2024 Start: 12-12-2024 naloxone (NARC AN) 4 mg/actuation spray,non-aerosol nasal spray Administer 1 spray (4 mg total) into alternating nostrils as needed for opioid reversal. 4 each 12/12/2024 Active oxyCODONE hydrochloride 5 mg oral tablet (10 sources) Opioid Agonist Start: 02-08-2025 take 1 tablet by mouth every six hours as needed for pain 5 mg, oral, Every 6 hours PRN, moderate pain - pain scale 4-6, Starting on [facility] 02/08/25 at 2259, Look-alike/sound-alike medication - verify indication for use. Immediate release. Start: 12-14-2024 End: 12-28-2024 take 1 tablet [...] pantoprazole 40 mg delayed release oral tablet (7 sources) Proton Pump Inhibitor Start: 05-21-2021 take 1 tablet by mouth every twenty-four hours Pantoprazole Sodium 40 MG 1 tablet Orally Once a day for 30 day(s) May, Active Start: 05-03-2018 End: 12-31-2020 take 1 tablet by mouth once daily Pantoprazole 40 mg tablet,delayed release (DR/EC) Discontinued 40 MG PO Daily May 03, 2018 12:00am December 31, 2020 6:09pm potassium chloride 10 meq extended release oral capsule (19 sources) Start: 02-22-2025 take 2 capsules by mouth once Potassium Chloride 10 mEq capsule, extended release Active 20 MEQ PO Once February 22, 2025 12:00am Complies with drug therapy Start: 02-09-2025 potassium chlo ride ER (Micro-K) 10 MEQ ER capsule Indications: Hypokalemia Take 2 capsules (20 mEq) by mouth in the morning. 30 capsule 2 02/15/2025 Active Start: 02-08-2025 potassium chlo ride (KLOR-CON M 20) CR tablet 30-50 mEq Start: 02-08-2025 End: 02-08-2025 10 mEq, intravenous, at 100 mL/hr, Administer over 60 Minutes, Every 1 hour, First dose on [facility] 02/08/25 at 1900, For 2 doses, VESICANT (YELLOW) Infuse each 10 mEq over a minimum of 1 hour. Start: 02-08-2025 End: 02-08-2025 40 mEq, oral, Once, On [facility] at 1900, For 1 dose, Do not crush or chew. prazosin 1 mg oral capsule (2 sources) alpha-Adrenergic Itzel Start: 08-17-2023 take 1 capsule by [...] Active Start: 08-30-2023 take 1 capsule by [facility] twice daily pregabalin (Lyrica) 75 MG capsule Indications: Fibromyalgia take 1 capsule by mouth twice a day 60 capsule 0 08/30/2023 Active sennosides, longterm 8.6 mg oral tablet (4 sources) Start: 12-12-2024 End: 12-19-2024 take 1 tablet by mouth at bedtime sennosides (Senokot) 8.6 MG tablet Take 8.6 mg by mouth at bedtime 12/12/2024 12/19/2024 Active 125 ml sodium chloride 9 mg/ml prefilled syringe (4 sources) Start: 02-08-2025 3 mL, intraven ous, Every 12 hours scheduled, First dose on [facility] 02/08/25 at 2100 Start: 02-08-2025 3 mL, intraven ous, As needed, line care, before and after each intermittent use, Starting on [facility] 02/08/25 at 2036 Start: 02-08-2025 End: 02-09-2025 take 20 mL intravenously every hour as needed 20 mL/hr, intravenous, Continuous PRN, to maintain patency of lines, Starting on Wed02/08/25 at 2036, For 1 day Start: 02-08-2025 take 25 mL intraveno usly every hour as needed 25 mL, intravenous, at 100 mL/hr, Administer over 15 Minutes, As needed, line care, line care after IVPB administration, Starting on [facility] 02/08/25 at 2036 sucralfate 1000 mg oral tablet (5 sources) [...] bedtime. 14 tablet 5 10/17/2024 Active Start: 10-17-2024 take 1 tablet by freda th in the morning, then take 1 tablet by mouth at bedtime valACYclovir (VALTREX) 1000 mg tablet Take 1 tablet (1,000 mg total) by mouth in the morning and 1 tablet (1,000 mg total) before bedtime. 10/17/2024 Active Start: 08-14-2024 End: 08-31-2024 take 1 tablet by mouth once in the morning valACYclovir (Valtrex) 1 g tablet Indications: H/O cold sores Take 1 tablet (1,000 mg) by mouth in the morning and 1 tablet (1,000 mg) before bedtime. 14 tablet 5 08/31/2024 Active Completed/Discontinued Medications Medication Drug Class(es) Dates Sig (Normalized) Sig (Original) acetaminophen 325 mg / HYDROcodone bitartrate 5 mg oral tablet (3 sources) Opioid Agonist Start: 12-31-2020 End: 02-22-2025 take 1 tablet by mouth every eight hours as needed for pain Hydrocodone-Acetam inophen 5-325 mg tablet Discontinued 1 TAB PO Q8H as needed for pain 9 3 December 31, 2020 February 22, 2025 2:36pm amylase [id number] unt / lipase [id number]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 above: Performed By: #### D DMR #### [facility] ([facility]) [address] [place] [address] [place] [address] VIR Chloride [Moles/Vol] 108 mmol/L Normal 98-109 [facility] Comment on above: Performed By: #### D DMR #### [facility] ([address] [place] [address] VIR CO2 [Moles/Vol] 21 mmol/L Low 22-32 [facility] Comment on above: Performed By: #### D DMR #### [facility] ([address] [place] [address] VIR Creatinine [Mass/Vol] 0.78 mg/dL Normal 0.40-1.00 [facility] Comment on above: Result Comment: METH OD TRACEABLE TO IDMS STANDARD Performed By: #### D DMR #### [facility] ([address] [address] VIR EGFR (CKD-EPI) NON-RACE DEPENDENT >^90 Normal >=60 [facility] Comment on above: Result Comment: Repo rted eGFR is based on the CKD-EPI 2020 equation that does not use a race coefficient. Performed By: #### D DMR #### [facility] ([address] [place] [address] VIR Glucose [Mass/Vol] 54 mg/dL Low 65-99 [facility] Comment on above: Performed By: #### D DMR #### [facility] ([address] [place] [address] VIR Potassium [Moles/Vol] 4.4 mmol/L Normal 3.5-5.0 [facility] Comment on above: Performed By: #### D DMR #### [facility] ([address] [place] [address] VIR Sodium [Moles/Vol] 138 mmol/L Normal 134-146 [facility] Comment on above: Performed By: #### D DMR #### [facility] ([address] [place] [address] VIR Urea nitrogen [Mass/Vol] 13 mg/dL Normal 5-23 [facility] Comment on above: Performed By: #### D DMR #### [facility]) [address] [facility] [place] [address] VIR CORTISOLon 02-26-2025 CORTISOL, TOTAL 5.8 ug/dL Normal [facility] Comment on above: Order Comment: Due t o the diurnal variation of cortisollevels in normal subjects, all cortisolmeasurments should be referenced to thetime of day of sample collection.AM Cortisol Age>=6 6.7-22.4 ug/dLPM Cortisol Age>=6 <10 ug/dL Performed By: #### C ORT ####[facility] ([facility])[address] [address] VIR METANEPHRINES, FRACTIONATED, FREE, PLASMAon 02-26-2025 METANEPHRINE, FREE <0.20 Normal <0.50 [facility] Comment on above: Result Comment: ADDITIONAL INFORMATION This test was developed and its performance characteristics determined by [facility] in a manner consistent with CLIA requirements. This test has not been cleared or approved by the U.S. Food and Drug Administration. Test Performed by: [facility] [address] [place] [address] Chrome Plater Helper: Tahira Grossman Ph.D.; CLIA# [id number] Performed By: #### P MET ####[employer] (SDL)[address] [place] [address] VIR NORMETANEPHRINE FREE 0.43 nmol/L Normal <0.90 [facility] Comment on above: Performed By: #### P MET ####[facility] Pocket Change Card (SDL)[address] [place] [address] VIR UNLISTED LAB TESTon 02-27-20 25 LOOK Sent to [facility]. Normal [facility] Comment on above: Performed By: #### D DMR #### [facility] ([facility]) [address] [place] [address] VIR CBC (H/H, RBC, INDICES, WBC, PLT)on 02-16-2025 Erythrocyte distribution width (RBC) [Ratio] 14.3 % Normal 11.0-15.0 [facility] Comment on above: Performed By: #### 1 230, , 1758 #### [facility] [address], [address] [place] [address] Clinical Field Specialist: Manuel Azar MD Hematocrit (Bld) [Volume fraction] 43.4 % Normal 35.0-45.0 [facility] Comment on above: Performed By: #### 1 230, , 1758 #### [facility] [place] [address] Clinical Field Specialist: Manuel Azar MD Hemoglobin (Bld) [Mass/Vol] 13.9 g/dL Normal 11.7-15.5 [facility] Comment on above: Performed By: #### 1 230, , 1758 #### [facility] [address], [address] [place] [address] Clinical Field Specialist: Manuel Azar MD MCH (RBC) [Entitic mass] 28.8 pg Normal 27.0-33.0 [facility] Comment on above: Performed By: #### 1 230, , 1758 #### [facility] [place] [address] Clinical Field Specialist: Manuel Azar MD MCHC (RBC) [Mass/Vol] 32.0 g/dL Normal 32.0-36.0 [facility] Comment on above: Result Comment: For adults, a slight decrease in the calculated MCHC value (in the range of 30 to 32 g/dL) is most likely not clinically significant; however, it should be interpreted with caution in correlation with other red cell parameters and the patient's clinical condition. Performed By: #### 1 230, , 1758 #### [facility] [place] [address] Clinical Field Specialist: Manuel Azar MD MCV (RBC) [Entitic vol] 89.9 fL Normal 80.0-100.0 [facility] Comment on above: Performed By: #### 1 230, , 1758 #### [facility] [place] [address] Clinical Field Specialist: Manuel Azar MD Platelet mean volume (Bld) [Entitic vol] 12.3 fL Normal 7.5-12.5 [facility] Comment on above: Performed By: #### 1 230, , 1758 #### [facility] [place] [address] Clinical Field Specialist: Manuel Azar MD Platelets (Bld) [#/Vol] 294 10*3/uL Normal 140-400 [facility] Comment on above: Performed By: #### 1 230, , 1758 #### [facility] [place] [address] Clinical Field Specialist: Manuel Azar MD RBC (Bld) [#/Vol] 4.83 10*6/uL Normal 3.80-5.10 [facility] Comment on above: Performed By: #### 1 230, , 1758 #### [facility] [place] [address] Clinical Field Specialist: Manuel Azar MD WBC (Bld) [#/Vol] 7.6 10*3/uL Normal 3.8-10.8 [facility] Comment on above: Performed By: #### 1 230, , 1758 #### [facility] [place] [address] Clinical Field Specialist: Manuel Azar MD COMPREHENSIVE METABOLIC PANE [facility] 02-16-2025 Albumin [Mass/Vol] 4.4 g/dL Normal 3.6-5.1 [facility] Comment on above: Order Comment: FASTI NG:YES FASTING: YES Performed By: #### 1 230, , 1758 #### [facility] [place] [address] Clinical Field Specialist: Manuel Azar MD Albumin/Globulin [Mass ratio] 1.9 {ratio} Normal 1.0-2.5 [facility] Comment on above: Order Comment: FASTI NG:YES FASTING: YES Performed By: #### 1 0231, , 175 #### [facility] [place] [address] Clinical Field Specialist: Manuel Azar MD ALP [Catalytic activity/Vol] 71 U/L Normal 31-125 [facility] Comment on above: Order Comment: FASTI NG:YES FASTING: YES Performed By: #### 1 023, , 175 #### [facility] [place] [address] Clinical Field Specialist: Manuel Azar MD ALT [Catalytic activity/Vol] 57 U/L High 6-29 [facility] Comment on above: Order Comment: FASTI NG:YES FASTING: YES Performed By: #### 1 230, , 175 #### [facility] [place] [address] Clinical Field Specialist: Manuel Azar MD AST [Catalytic activity/Vol] 34 U/L High 10-30 [facility] Comment on above: Order Comment: FASTI NG:YES FASTING: YES Performed By: #### 1 0231, , 175 #### [facility] [place] [address] Clinical Field Specialist: Manuel Azar MD Bilirubin [Mass/Vol] 0.4 mg/dL Normal 0.2-1.2 [facility] Comment on above: Order Comment: FASTI NG:YES FASTING: YES Performed By: #### 1 023, , 175 #### [facility] [place] [address] Clinical Field Specialist: Manuel Azar MD BUN/CREATININE RATIO SEE NOTE: Normal 6-22 [facility] Comment on above: Order Comment: FASTI NG:YES FASTING: YES Result Comment: Not Reported: BUN and Creatinine are within reference range. Performed By: #### 1 230, , 1758 #### [facility] [address], [address] [place] [address] Clinical Field Specialist: Manuel Azar MD Calcium [Mass/Vol] 9.6 mg/dL Normal 8.6-10.2 [facility] Comment on above: Order Comment: FASTI NG:YES FASTING: YES Performed By: #### 1 230, , 1758 #### [facility] [address], [address] [place] [address] Clinical Field Specialist: Manuel Azar MD Chloride [Moles/Vol] 104 mmol/L Normal 98-110 [facility] Comment on above: Order Comment: FASTI NG:YES FASTING: YES Performed By: #### 1 230, , 1758 #### [facility] [address], [address] [place] [address] Clinical Field Specialist: Manuel Azar MD CO2 [Moles/Vol] 26 mmol/L Normal 20-32 [facility] Comment on above: Order Comment: FASTI NG:YES FASTING: YES Performed By: #### 1 230, , 1758 #### [facility] [place] [address] Clinical Field Specialist: Manuel Azar MD Creatinine [Mass/Vol] 0.63 mg/dL Normal 0.50-0.96 [facility] Comment on above: Order Comment: FASTI NG:YES FASTING: YES Performed By: #### 1 230, , 1758 #### [facility] [address], [address] [place] [address] Clinical Field Specialist: Manuel Azar MD GFR/1.73 sq M.predicted among non-blacks MDRD (S/P/Bld) [Vol rate/Area] 125 mL/min/{1.73_m2} Normal > OR = 60 [facility] Comment on above: Order Comment: FASTI NG:YES FASTING: YES Performed By: #### 1 230, , 175 #### [facility] [address], [address] [place] [address] Clinical Field Specialist: Manuel Azar MD Globulin (S) [Mass/Vol] 2.3 g/dL Normal 1.9-3.7 [facility] Comment on above: Order Comment: FASTI NG:YES FASTING: YES Performed By: #### 1 230, , 175 #### [facility] [address], [address] [place] [address] Clinical Field Specialist: Manuel Azar MD Glucose [Mass/Vol] 88 mg/dL Normal 65-99 [facility] Comment on above: Order Comment: FASTI NG:YES FASTING: YES Result Comment: Fasting reference interval Performed By: #### 1 230, , 1758 #### [facility] [place] [address] Clinical Field Specialist: Manuel Azar MD Potassium [Moles/Vol] 3.6 mmol/L Normal 3.5-5.3 [facility] Comment on above: Order Comment: FASTI NG:YES FASTING: YES Performed By: #### 1 230, , 175 #### [facility] [place] [address] Clinical Field Specialist: Manuel Azar MD Protein [Mass/Vol] 6.7 g/dL Normal 6.1-8.1 [facility] Comment on above: Order Comment: FASTI NG:YES FASTING: YES Performed By: #### 1 230, , 175 #### [facility] [address], [address] [place] [address] Clinical Field Specialist: Manuel Azar MD Sodium [Moles/Vol] 137 mmol/L Normal 135-146 [facility] Comment on above: Order Comment: FASTI NG:YES FASTING: YES Performed By: #### 1 230, , 175 #### [facility] [place] [address] Clinical Field Specialist: Manuel Azar MD Urea nitrogen [Mass/Vol] 12 mg/dL Normal 7-25 [facility] Comment on above: Order Comment: FASTI NG:YES FASTING: YES Performed By: #### 1 3526, 53296, 9644 #### [facility] [address], [address] [place] [address] Clinical Field Specialist: Manuel Azar MD TSH W/REFLEX TO FT4on 2024 TSH W/REFLEX TO FT4 1.95 mIU/L Normal [facility] Comment on above: Result Comment: Refe rence Range > or = 20 Years 0.40-4.50 Ranges First trimester 0.26-2.66 Second trimester 0.55-2.73 Third trimester 0.43-2.91 Performed By: #### 1 1536, 39084, 7651 #### [facility] [address], [address] [place] [address] Clinical Field Specialist: Manuel Azar MD XR ABDOMEN COMP DECUB ERECTo n 02-13-2025 XR ABDOMEN COMP DECUB ERECT XR ABDOMEN COMP DECUB ERECT XR ABDOMEN COMP DECUB ERECT 02/13/2025 2:41 [...] Julius Willett MD on 02/13/2025 3:05 PM Normal [facility] CBC WITH AUTO DIFFERENTIALon 02-09-2025 BASOPHILS ABSOLUTE COUNT (10*3/UL) BY AUTOMATED COUNT 0.1 10*3/uL Normal 0.0-0.2 [facility] Comment on above: Performed By: #### D DMR #### [facility] ([address] [place] [address] VIR BASOPHILS RELATIVE PERCENT BY AUTOMATED COUNT 1.3 % Normal [facility] Comment on above: Performed By: #### D DMR #### [facility] ([address] [place] [address] VIR CELLAVISION DIFFERENTIAL TYPE AUTOMATED DIFFERENTIAL Normal [facility] Comment on above: Performed By: #### D DMR #### [facility] ([address] [place] [address] VIR Eosinophils (Bld) [#/Vol] 0.1 10*3/uL Normal 0.0-0.4 [facility] Comment on above: Performed By: #### D DMR #### [facility] ([address] [place] [address] VIR EOSINOPHILS RELATIVE PERCENT BY AUTOMATED COUNT 1.6 % Normal [facility] Comment on above: Performed By: #### D DMR #### [facility] ([address] [place] [address] VIR Erythrocyte distribution width (RBC) [Ratio] 13.7 % Normal 11.5-15 [facility] Comment on above: Performed By: #### D DMR #### [facility] ([address] [place] [address] VIR Hematocrit (Bld) [Volume fraction] 40.2 % Normal 35-47 [facility] Comment on above: Performed By: #### D DMR #### [facility] ([address] [place] [address] VIR Hemoglobin (Bld) [Mass/Vol] 13.8 g/dL Normal 11.7-15.5 [facility] Comment on above: Performed By: #### D DMR #### [facility] ([address] [place] [address] VIR LYMPHOCYTES ABSOLUTE COUNT (10*3/UL) BY AUTOMATED COUNT 2.7 10*3/uL Normal 1.0-3.5 [facility] Comment on above: Performed By: #### D DMR #### [facility] ([address] [place] [address] VIR LYMPHOCYTES RELATIVE PERCENT BY AUTOMATED COUNT 35.1 % Normal [facility] Comment on above: Performed By: #### D DMR #### [facility] ([address] [place] [address] VIR MCH (RBC) [Entitic mass] 28.4 pg Normal 27-34 [facility] Comment on above: Performed By: #### D DMR #### [facility] ([address] [place] [address] VIR MCHC (RBC) [Mass/Vol] 34.3 g/dL Normal 32-36 [facility] Comment on above: Performed By: #### D DMR #### [facility] ([address] [place] [address] VIR MCV (RBC) [Entitic vol] 83 fL Normal 80-100 [facility] Comment on above: Performed By: #### D DMR #### [facility] ([address] [place] [address] VIR MONOCYTES ABSOLUTE COUNT (10*3/UL) BY AUTOMATED COUNT 0.7 10*3/uL Normal 0.0-0.9 [facility] Comment on above: Performed By: #### D DMR #### [facility] ([address] [place] [address] VIR MONOCYTES RELATIVE PERCENT BY AUTOMATED COUNT 9.5 % Normal [facility] Comment on above: Performed By: #### D DMR #### [facility] ([address] [place] [address] VIR NEUTROPHILS ABSOLUTE COUNT BY AUTOMATED COUNT 4.1 10*3/uL Normal 1.5-6.6 [facility] Comment on above: Performed By: #### D DMR #### [facility] ([facility]) [address] [place] [address] VIR NEUTROPHILS RELATIVE PERCENT BY AUTOMATED COUNT 52.5 % Normal [facility] Comment on above: Performed By: #### D DMR #### [facility] ([facility]) [address] [place] [address] VIR Platelet mean volume (Bld) [Entitic vol] 9.5 fL Normal 7-12 [facility] Comment on above: Performed By: #### D DMR #### [facility] ([address] [address] VIR Platelets (Bld) [#/Vol] 247 10*3/uL Normal 150-450 [facility] Comment on above: Performed By: #### D DMR #### [facility] ([address] [address] VIR RBC COUNT 4.86 X10E12/L Normal 3.8-5.2 [facility] Comment on above: Performed By: #### D DMR #### [facility] ([address] [address] VIR WBC (Bld) [#/Vol] 7.8 10*3/uL Normal 4-11 [facility] Comment on above: Performed By: #### D DMR #### [facility] ([address] [address] VIR CBC auto differentialon 07-0 Basophils (Bld) [#/Vol] 0.1 10*3/uL 0.0 - 0.2 10*3/uL [facility] Basophils/100 WBC (Bld) 1.3 % [facility] Differential cell count method Nom (Bld) AUTOMATED DIFFERENTIAL [facility] Eosinophils (Bld) [#/Vol] 0.1 10*3/uL 0.0 - 0.4 10*3/uL [facility] Eosinophils/100 WBC (Bld) 1.6 % [facility] Erythrocyte distribution width (RBC) [Ratio] 13.7 % 11.5 - 15 % [facility] Hematocrit (Bld) [Volume fraction] 40.2 % 35 - 47 % [facility] Hemoglobin (Bld) [Mass/Vol] 13.8 g/dL 11.7 - 15.5 g/dL [facility] Lymphocytes (Bld) [#/Vol] 2.7 10*3/uL 1.0 - 3.5 10*3/uL [facility] Lymphocytes/100 WBC (Bld) 35.1 % [facility] MCH (RBC) [Entitic mass] 28.4 pg 27 - 34 pg [facility] MCHC (RBC) [Mass/Vol] 34.3 g/dL 32 - 36 g/dL [facility] MCV (RBC) [Entitic vol] 83 fL 80 - 100 fL [facility] Monocytes (Bld) [#/Vol] 0.7 10*3/uL 0.0 - 0.9 10*3/uL [facility] Monocytes/100 WBC (Bld) 9.5 % [facility] Neutrophils (Bld) [#/Vol] 4.1 10*3/uL 1.5 - 6.6 10*3/uL [facility] Neutrophils/100 WBC (Bld) 52.5 % [facility] Platelet mean volume (Bld) [Entitic vol] 9.5 fL 7 - 12 fL [facility] Platelets (Bld) [#/Vol] 247 10*3/uL [facility] RBC (Bld) [#/Vol] 4.86 10*6/uL [facility] WBC LM Ql (Sput) 7.8 [facility] COMPREHENSIVE METABOLIC PANE [facility] 02-09-2025 Albumin [Mass/Vol] 3.7 g/dL Normal 3.2-5.3 [facility] Comment on above: Performed By: #### D DMR #### [facility] ([facility]) [address] [place] [address] VIR ALP [Catalytic activity/Vol] 72 U/L Normal 39-130 [facility] Comment on above: Performed By: #### D DMR #### [facility] ([facility] [address] [place] [address] VIR ALT [Catalytic activity/Vol] 15 U/L Normal <=31 [facility] Comment on above: Performed By: #### D DMR #### [facility] ([place] [address] [place] [address] VIR Anion gap [Moles/Vol] 13 mmol/L Normal 5-15 [facility] Comment on above: Performed By: #### D DMR #### [facility] ([place] [address] [place] [address] VIR AST [Catalytic activity/Vol] 16 U/L Normal <=41 [facility] Comment on above: Performed By: #### D DMR #### [facility] ([place] [address] [place] [address] VIR Bilirubin [Mass/Vol] 0.6 mg/dL Normal 0.3-1.2 [facility] Comment on above: Performed By: #### D DMR #### [facility] ([place] [address] [place] [address] VIR Calcium [Mass/Vol] 9.3 mg/dL Normal 8.5-10.5 [facility] Comment on above: Performed By: #### D DMR #### [facility] ([place] [address] [place] [address] VIR Chloride [Moles/Vol] 99 mmol/L Normal 98-109 [facility] Comment on above: Performed By: #### D DMR #### [facility] ([place] [address] [place] [address] VIR CO2 [Moles/Vol] 23 mmol/L Normal 22-32 [facility] Comment on above: Performed By: #### D DMR #### [facility] ([address] [place] [address] VIR Creatinine [Mass/Vol] 0.68 mg/dL Normal 0.40-1.00 [facility] Comment on above: Result Comment: METH OD TRACEABLE TO IDMS STANDARD Performed By: #### D DMR #### [facility] ([address] [place] [address] VIR EGFR (CKD-EPI) NON-RACE DEPENDENT >^90 Normal >=60 [facility] Comment on above: Result Comment: eGFR not reported due to non-numeric value for Creatinine. Reported eGFR is based on the CKD-EPI 2020 equation that does not use a race coefficient. Performed By: #### D DMR #### [facility] ([address] [place] [address] VIR Glucose [Mass/Vol] 95 mg/dL Normal 65-99 [facility] Comment on above: Performed By: #### D DMR #### [facility] ([address] [place] [address] VIR Potassium [Moles/Vol] 3.2 mmol/L Low 3.5-5.0 [facility] Comment on above: Performed By: #### D DMR #### [facility] ([address] [place] [address] VIR Protein [Mass/Vol] 6.8 g/dL Normal 6.0-8.0 [facility] Comment on above: Performed By: #### D DMR #### [facility] ([address] [place] [address] VIR Sodium [Moles/Vol] 135 mmol/L Normal 134-146 [facility] Comment on above: Performed By: #### D DMR #### [facility] [address] [place] [address] VIR Urea nitrogen [Mass/Vol] 10 mg/dL Normal 5-23 [facility] Comment on above: Performed By: #### D TRACEY #### [facility] [address] [place] [address] VIR Comprehensive metabolic pane jaison 02-09-2025 Albumin [Mass/Vol] 3.7 g/dL 3.2 - 5.3 g/dL [facility] ALP [Catalytic activity/Vol] 72 U/L 39 - 130 U/L [facility] ALT No additional P-5'-P [Catalytic activity/Vol] 15 U/L NINF - 31 U/L [facility] Anion gap [Moles/Vol] 13 mmol/L 5 - 15 mmol/L [facility] AST [Catalytic activity/Vol] 16 U/L NINF - 41 U/L [facility] Bilirubin [Mass/Vol] 0.6 mg/dL 0.3 - 1 .2 mg/dL [facility] Calcium [Mass/Vol] 9.3 mg/dL 8.5 - 10. 5 mg/dL [facility] Chloride [Moles/Vol] 99 mmol/L 98 - 10 9 mmol/L [facility] CO2 [Moles/Vol] 23 mmol/L 22 - 32 mmol/L [facility] Creatinine [Mass/Vol] 0.68 mg/dL 0.40 - 1.00 mg/dL [facility] Comment on above: METHOD TRACEABLE TO IDMS STANDARD EGFR Non-Race Dependent - PINF [facility] Comment on above: eGFR not reported du e to non-numeric value for Creatinine. Reported eGFR is based on the CKD-EPI 202 equation that does not use a race coefficient. Glucose [Mass/Vol] 95 mg/dL 65 - 99 mg/dL [facility] Interpretation and review of laboratory results Abnormal [facility] Potassium [Moles/Vol] 3.2 mmol/L Low 3.5 - 5.0 mmol/L [facility] Protein [Mass/Vol] 6.8 g/dL 6.0 - 8.0 g/dL [facility] Sodium [Moles/Vol] 135 mmol/L 134 - 146 mmol/L [facility] Urea nitrogen [Mass/Vol] 10 mg/dL 5 - 23 mg/dL [facility] MAGNESIUMon 02-09-2025 Magnesium [Mass/Vol] 1.9 mg/dL Normal 1.8-2.6 [facility] Comment on above: Performed By: #### D DMR #### [facility] ([address] [address] VIR Magnesiumon 02-09-2025 Interpretation and review of laboratory results Normal [facility] Magnesium [Mass/Vol] 1.9 mg/dL 1.8 - 2 .6 mg/dL [facility] No Panel Informationon 02-09 [facility] POTASSIUMon 02-09-2025 Potassium [Moles/Vol] 3.6 mmol/L Normal 3.5-5.0 [facility] Comment on above: Performed By: #### D DMR #### [facility] ([address] [address] VIR Potassium [Moles/Vol] 2.7 mmol/L Critically low 3.5-5.0 [facility] Comment on above: Performed By: #### D DMR #### [address] [address] VIR Potassiumon 02-09-2025 Interpretation and review of laboratory results Normal [facility] Potassium [Moles/Vol] 3.6 mmol/L 3.5 - 5.0 mmol/L [facility] PotassiumOrdered By: Radha Tripathi on 02-09-2025 Interpretation and review of laboratory results Abnormal [facility] Potassium [Moles/Vol] 2.7 mmol/L Critically low 3.5 - 5.0 mmol/L [facility] SST TOPon 02-09-2025 Extra Tube Auto Resulted [facility] 36on 07-03-2025 36 Patient called back. I then called Dr. Cochran on the phone for advice before the long holiday weekend. He wants patient to double her metoprolol. Earl then informed patient. Normal [facility] APTTon 02-08-2025 aPTT Coag (PPP) [Time] 32 s [facility] aPTT Coag (Bld) [Time] 32 s Normal 26-37 [facility] Comment on above: Performed By: #### C BCA #### [facility] ([facility]) [address] [place] [address] VIR CBC WITH AUTO DIFFERENTIALon 02-08-2025 BASOPHILS ABSOLUTE COUNT (10*3/UL) BY AUTOMATED COUNT 0.2 10*3/uL Normal 0.0-0.2 [facility] Comment on above: Performed By: #### C BCA #### [facility] ([address] [address] VIR BASOPHILS RELATIVE PERCENT BY AUTOMATED COUNT 3.0 % Normal [facility] Comment on above: Performed By: #### C BCA #### [facility] ([address] [address] VIR CELLAVISION DIFFERENTIAL TYPE AUTOMATED DIFFERENTIAL Normal [facility] Comment on above: Performed By: #### C BCA #### [facility] ([address] [address] VIR Eosinophils (Bld) [#/Vol] 0.1 10*3/uL Normal 0.0-0.4 [facility] Comment on above: Performed By: #### C BCA #### [facility] ([address] [address] VIR EOSINOPHILS RELATIVE PERCENT BY AUTOMATED COUNT 1.0 % Normal [facility] Comment on above: Performed By: #### C BCA #### [facility] ([address] [place] [address] VIR Erythrocyte distribution width (RBC) [Ratio] 13.7 % Normal 11.5-15 [facility] Comment on above: Performed By: #### C BCA #### [facility] ([address] [address] VIR Hematocrit (Bld) [Volume fraction] 46.9 % Normal 35-47 [facility] Comment on above: Performed By: #### C BCA #### [facility] ([address] [address] VIR Hemoglobin (Bld) [Mass/Vol] 16.2 g/dL High 11.7-15.5 [facility] Comment on above: Performed By: #### C BCA #### [facility] ([address] [address] VIR LYMPHOCYTES ABSOLUTE COUNT (10*3/UL) BY AUTOMATED COUNT 1.9 10*3/uL Normal 1.0-3.5 [facility] Comment on above: Performed By: #### C BCA #### [facility] ([address] [address] VIR LYMPHOCYTES RELATIVE PERCENT BY AUTOMATED COUNT 22.5 % Normal [facility] Comment on above: Performed By: #### C BCA #### [facility] ([address] [address] VIR MCH (RBC) [Entitic mass] 28.5 pg Normal 27-34 [facility] Comment on above: Performed By: #### C BCA #### [facility] ([address] [address] VIR MCHC (RBC) [Mass/Vol] 34.6 g/dL Normal 32-36 [facility] Comment on above: Performed By: #### C BCA #### [facility] ([address] [address] VIR MCV (RBC) [Entitic vol] 82 fL Normal 80-100 [facility] Comment on above: Performed By: #### C BCA #### [facility] ([address] [address] VIR MONOCYTES ABSOLUTE COUNT (10*3/UL) BY AUTOMATED COUNT 0.5 10*3/uL Normal 0.0-0.9 [facility] Comment on above: Performed By: #### C BCA #### [facility] ([address] [address] VIR MONOCYTES RELATIVE PERCENT BY AUTOMATED COUNT 5.9 % Normal [facility] Comment on above: Performed By: #### C BCA #### [facility] ([address] [address] VIR NEUTROPHILS ABSOLUTE COUNT BY AUTOMATED COUNT 5.7 10*3/uL Normal 1.5-6.6 [facility] Comment on above: Performed By: #### C BCA #### [facility] ([address] [address] VIR NEUTROPHILS RELATIVE PERCENT BY AUTOMATED COUNT 67.6 % Normal [facility] Comment on above: Performed By: #### C BCA #### [facility] ([address] [address] VIR Platelet mean volume (Bld) [Entitic vol] 9.7 fL Normal 7-12 [facility] Comment on above: Performed By: #### C BCA #### [facility] ([address] [address] VIR Platelets (Bld) [#/Vol] 285 10*3/uL Normal 150-450 [facility] Comment on above: Performed By: #### C BCA #### [facility] ([address] [address] VIR RBC COUNT 5.69 X10E12/L High 3.8-5.2 [facility] Comment on above: Performed By: #### C SEBAS #### [facility]) [address] [place] [address] VIR WBC (Bld) [#/Vol] 8.4 10*3/uL Normal 4-11 [facility] Comment on above: Performed By: #### C SEBAS #### [facility]) [address] [place] [address] VIR CBC auto differentialon 07-0 -2024 Basophils (Bld) [#/Vol] 0.2 10*3/uL 0.0 - 0.2 10*3/uL [facility] Basophils/100 WBC (Bld) 3 % [facility] Differential cell count method Nom (Bld) AUTOMATED DIFFERENTIAL [facility] Eosinophils (Bld) [#/Vol] 0.1 10*3/uL 0.0 - 0.4 10*3/uL [facility] Eosinophils/100 WBC (Bld) 1 % [facility] Erythrocyte distribution width (RBC) [Ratio] 13.7 % 11.5 - 15 % [facility] Hematocrit (Bld) [Volume fraction] 46.9 % 35 - 47 % [facility] Hemoglobin (Bld) [Mass/Vol] 16.2 g/dL High 11.7 - 15.5 g/dL [facility] Interpretation and review of laboratory results Abnormal [facility] Lymphocytes (Bld) [#/Vol] 1.9 10*3/uL 1.0 - 3.5 10*3/uL [facility] Lymphocytes/100 WBC (Bld) 22.5 % [facility] MCH (RBC) [Entitic mass] 28.5 pg 27 - 34 pg [facility] MCHC (RBC) [Mass/Vol] 34.6 g/dL 32 - 36 g/dL [facility] MCV (RBC) [Entitic vol] 82 fL 80 - 100 fL [facility] Monocytes (Bld) [#/Vol] 0.5 10*3/uL 0.0 - 0.9 10*3/uL [facility] Monocytes/100 WBC (Bld) 5.9 % [facility] Neutrophils (Bld) [#/Vol] 5.7 10*3/uL 1.5 - 6.6 10*3/uL [facility] Neutrophils/100 WBC (Bld) 67.6 % [facility] Platelet mean volume (Bld) [Entitic vol] 9.7 fL 7 - 12 fL [facility] Platelets (Bld) [#/Vol] 285 10*3/uL [facility] RBC (Bld) [#/Vol] 5.69 10*6/uL [facility] WBC LM Ql (Sput) 8.4 [facility] COMPREHENSIVE METABOLIC PANE Jaison 02-08-2025 Albumin [Mass/Vol] 4.7 g/dL Normal 3.2-5.3 [facility] Comment on above: Performed By: #### C BCA #### [facility] ([address] [address] VIR ALP [Catalytic activity/Vol] 90 U/L Normal 39-130 [facility] Comment on above: Performed By: #### C BCA #### [facility] ([address] [address] VIR ALT [Catalytic activity/Vol] 18 U/L Normal <=31 [facility] Comment on above: Performed By: #### C BCA #### [facility] ([address] [address] VIR Anion gap [Moles/Vol] 14 mmol/L Normal 5-15 [facility] Comment on above: Performed By: #### C BCA #### [facility] ([address] [address] VIR AST [Catalytic activity/Vol] 19 U/L Normal <=41 [facility] Comment on above: Performed By: #### C BCA #### [facility] ([address] [address] VIR Bilirubin [Mass/Vol] 0.7 mg/dL Normal 0.3-1.2 [facility] Comment on above: Performed By: #### C BCA #### [facility] ([address] [place] [address] VIR Calcium [Mass/Vol] 9.8 mg/dL Normal 8.5-10.5 [facility] Comment on above: Performed By: #### C BCA #### [facility] ([address] [place] [address] VIR Chloride [Moles/Vol] 95 mmol/L Low 98-109 [facility] Comment on above: Performed By: #### C BCA #### [facility] ([address] [place] [address] VIR CO2 [Moles/Vol] 26 mmol/L Normal 22-32 [facility] Comment on above: Performed By: #### C BCA #### [facility] ([address] [place] [address] VIR Creatinine [Mass/Vol] 0.82 mg/dL Normal 0.40-1.00 [facility] Comment on above: Result Comment: METH OD TRACEABLE TO IDMS STANDARD Performed By: #### C BCA #### [facility] ([address] [place] [address] VIR EGFR (CKD-EPI) NON-RACE DEPENDENT >^90 Normal >=60 [facility] Comment on above: Result Comment: Repo rted eGFR is based on the CKD-EPI 2020 equation that does not use a race coefficient. Performed By: #### C BCA #### [facility] ([address] [place] [address] VIR Glucose [Mass/Vol] 106 mg/dL High 65-99 [facility] Comment on above: Performed By: #### C BCA #### [facility] ([address] [place] [address] VIR Potassium [Moles/Vol] 2.7 mmol/L Critically low 3.5-5.0 [facility] Comment on above: Performed By: #### C BCA #### [facility]) [address] [address] VIR Protein [Mass/Vol] 8.4 g/dL High 6.0-8.0 [facility] Comment on above: Performed By: #### C BCA #### [facility]) [address] [place] [address] [place] [address] VIR Sodium [Moles/Vol] 135 mmol/L Normal 134-146 [facility] Comment on above: Performed By: #### C BCA #### [facility]) [address] [place] [address] [place] [address] VIR Urea nitrogen [Mass/Vol] 10 mg/dL Normal 5-23 [facility] Comment on above: Performed By: #### C BCA #### [facility]) [address] [place] [address] [place] [address] BRAIN WO CONTon CT BRAIN WO CONT CT BRAIN WO CONT CLINICAL HISTORY: Right-sided headache. Hypertension. TECHNIQUE: Spiral [...] Monty Antonio MD on 02/08/2025 6:27 PM Normal [facility] CT Head WO contraston 2024 CLINICAL HISTORY: Right-sided headache. Hypertension. TECHNIQUE: Spiral [...] Monty Antonio MD on 02/08/2025 6:27 PM SECTRAVACS Monty Antonio M D - 02/08/2025 CLINICAL HISTORY: Right-sided headache. Hypertension. [...] Monty Antonio MD on 02/08/2025 6:27 PM [facility] Radiology Study observation (narrative) [facility] CT Head WO contrastOrdered B y: Monty Antonio on 02-08-2025 [facility] Work Phone: Comprehensive metabolic pane lOrdered By: Lucinda Knowles on 02-08-2025 Albumin [Mass/Vol] 4.7 g/dL 3.2 - 5.3 g/dL [facility] ALP [Catalytic activity/Vol] 90 U/L 39 - 130 U/L [facility] ALT No additional P-5'-P [Catalytic activity/Vol] 18 U/L NINF - 31 U/L [facility] Anion gap [Moles/Vol] 14 mmol/L 5 - 15 mmol/L [facility] AST [Catalytic activity/Vol] 19 U/L NINF - 41 U/L [facility] Bilirubin [Mass/Vol] 0.7 mg/dL 0.3 - 1 .2 mg/dL [facility] Calcium [Mass/Vol] 9.8 mg/dL 8.5 - 10. 5 mg/dL [facility] Chloride [Moles/Vol] 95 mmol/L Low 98 - 10 9 mmol/L [facility] CO2 [Moles/Vol] 26 mmol/L 22 - 32 mmol/L [facility] Creatinine [Mass/Vol] 0.82 mg/dL 0.40 - 1.00 mg/dL [facility] Comment on above: METHOD TRACEABLE TO IDNC STANDARD EGFR Non-Race Dependent - PINF [facility] Comment on above: Reported eGFR is bas ed on the CKD-EPI 2020 equation that does not use a race coefficient. Glucose [Mass/Vol] 106 mg/dL High 65 - 99 mg/dL [facility] Interpretation and review of laboratory results Abnormal [facility] Potassium [Moles/Vol] 2.7 mmol/L Critically low 3.5 - 5.0 mmol/L [facility] Protein [Mass/Vol] 8.4 g/dL High 6.0 - 8.0 g/dL [facility] Sodium [Moles/Vol] 135 mmol/L 134 - 146 mmol/L [facility] Urea nitrogen [Mass/Vol] 10 mg/dL 5 - 23 mg/dL [facility] DRUG SCREEN, URINEon 025 AMPHETAMINE/METHAMP Negative Normal Negative [facility] Comment on above: Result Comment: AMPH /METH screening cut off = 1000 ng/mL Performed By: #### D DMR #### [facility] [address] [place] [address] VIR BARBITURATES Negative Normal Negative [facility] Comment on above: Result Comment: Nicole iturates screening cut off value = 200 ng/mL Performed By: #### D DMR #### [facility] ([address] [address] VIR BENZODIAZEPINES Positive Abnormal Negative [facility] Comment on above: Result Comment: Chandana odiazepines screening cut off value = 200 ng/mL Performed By: #### D DMR #### [facility] ([address] [address] VIR CANNABINOIDS Negative Normal Negative [facility] Comment on above: Result Comment: Laura abinoids/THC screening cut off value = 50 ng/mL Performed By: #### D DMR #### [facility] ([address] [address] VIR COCAINE METABOLITE Negative Normal Negative [facility] Comment on above: Result Comment: Coca ine screening cut off value = 300 ng/mL Performed By: #### D DMR #### [facility] ([address] [address] VIR ECSTASY Negative Normal Negative [facility] Comment on above: Result Comment: Ecst asy screening cut off value = 500 ng/mL Performed By: #### D DMR #### [facility] ([address] [address] VIR METHADONE Negative Normal Negative [facility] Comment on above: Result Comment: Meth adone screening cut off value = 300 ng/mL. Performed By: #### D DMR #### [facility] ([address] [address] VIR OPIATES Negative Normal Negative [facility] Comment on above: Result Comment: Opia jamar screening cut off value = 300 ng/mL This test is used for the detection of codeine, hydrocodone (>1000 ng/mL), morphine and hydromorphone (>900 ng/mL) in urine. Performed By: #### D DMR #### [facility] ([address] [address] VIR OXYCODONE Negative Normal Negative [facility] Comment on above: Result Comment: Oxyc odone screening cut off value = 300 ng/mL This test is used for the detection of oxycodone and oxymorphone in urine. Performed By: #### D DMR #### [facility] [address] [place] [address]. [place] [address] VIR PHENCYCLIDINE Negative Normal Negative [facility] Comment on above: Result Comment: Phen cyclidine screening cut off value = 25 ng/mL Performed By: #### D DMR #### [facility] [address] [place] [address]. [place] [address] VIR Drug Screen, Urineon 025 Amphetamines Screen method >1000 ng/mL Ql (U) Negative Negative [facility] Comment on above: AMPH/METH screening cut off = 1000 ng/mL Barbiturates Screen Ql (U) Negative Negative [facility] Comment on above: Barbiturates screeni ng cut off value = 200 ng/mL Benzodiazepines Ql (U) Positive Abnormal Negative [facility] Comment on above: Benzodiazepines scre ening cut off value = 200 ng/mL Cocaine Ql (U) Negative Negative [facility] Comment on above: Cocaine screening cu t off value = 300 ng/mL Interpretation and review of laboratory results Abnormal [facility] Methadone (Mec) [Mass/Mass] Negative Negative [facility] Comment on above: Methadone screening cut off value = 300 ng/mL. Methylenedioxymetham phetamine Screen Ql (U) Negative Negative [facility] Comment on above: Ecstasy screening cu t off value = 500 ng/mL Opiates Ql (U) Negative Negative [facility] Comment on above: Opiates screening cu t off value = 300 ng/mL This test is used for the detection of codeine, hydrocodone (>1000 ng/mL), morphine and hydromorphone (>900 ng/mL) in urine. oxyCODONE [Mass/Vol] Negative Negative [facility] Comment on above: Oxycodone screening cut off value = 300 ng/mL This test is used for the detection of oxycodone and oxymorphone in urine. Phencyclidine Screen method >25 ng/mL Ql (U) Negative Negative [facility] Comment on above: Phencyclidine screen ing cut off value = 25 ng/mL Tetrahydrocannabinol Screen method >50 ng/mL Ql (U) Negative Negative [facility] Comment on above: Cannabinoids/THC scr eening cut off value = 50 ng/mL [facility] ECG 12 leadon 02-08-2025 TRACEMASTERVUE [facility] MAGNESIUMon 02-08-2025 Magnesium [Mass/Vol] 2.2 mg/dL Normal 1.8-2.6 [facility] Comment on above: Performed By: #### C BCA #### [facility] [address] [place] [address] VIR Magnesiumon 02-08-2025 Interpretation and review of laboratory results Normal [facility] Magnesium [Mass/Vol] 2.2 mg/dL 1.8 - 2 .6 mg/dL [facility] No Panel Informationon 02-08 Extra Tube Auto Resulted [facility] Interpretation and review of laboratory results Normal [facility] Orders Onlyon 02-08-2025 Orders Only [id number] Misty Elliott 1995 F Date Provider Department Center 02/08/2025 KIT BAHENA MERLINE Velasquez Family History Problem Relation Age of Onset Diabetes Maternal Grandmother Lupus Maternal Grandmother Kidney disease Maternal Grandmother Von Willebrand disease Son Family Status - Relation Status Age at Mother Alive Father Alive Maternal Grandmother Son Alive Normal [facility] Orders Only [id number] Misty Elliott 1995 F Date Provider Department Center 02/08/2025 FABIAN PARSONS MERLINE [facility] Family History Problem Relation Age of Onset Diabetes Maternal Grandmother Lupus Maternal Grandmother Kidney disease Maternal Grandmother Von Willebrand disease Son Family Status - Relation Status Age at Mother Alive Father Alive Maternal Grandmother Son Alive Normal [facility] POCT NURSING URINE MACROSCOP IC UAon 02-08-2025 BILIRUBIN CAMILLA Negative Normal Negative [facility] Comment on above: Performed By: #### C BCA #### [facility] [address] [address] VIR BLOOD/HGB [place] Negative Normal Negative [facility] Comment on above: Performed By: #### C BCA #### [facility] ([address] [place] [address] VIR GLUCOSE [place] Negative Normal Negative [facility] Comment on above: Performed By: #### C BCA #### [facility] ([address] [place] [address] VIR KETONES CAMILLA Negative Normal Negative [facility] Comment on above: Performed By: #### C BCA #### [facility] ([address] [place] [address] VIR LEUKOCYTE ESTERASE [place]ILLA Negative Normal Negative [facility] Comment on above: Performed By: #### C BCA #### [address] [place] [address] VIR NITRITE [place] Negative Normal Negative [facility] Comment on above: Performed By: #### C BCA #### [facility] ([address] [place] [address] VIR PH CAMILLA 7.0 Normal 5.0, 6.0, 6.5, 7.0, 7.5, 8.0, 8.5, 5.5 [facility] Comment on above: Performed By: #### C BCA #### [facility] ([address] [place] [address] VIR PROTEIN CAMILLA 100 mg/dL Abnormal Negative [facility] Comment on above: Performed By: #### C BCA #### [address] [place] [address] VIR SPECIFIC GRAVITY CAMILLA 1.020 Normal 1.010, 1.015, 1.020, 1.025 [facility] Comment on above: Performed By: #### C BCA #### [facility] ([address] [place] [address] VIR UROBILINOGEN CAMILLA 0.2 E.U./dL Normal [facility] Comment on above: Performed By: #### C BCA #### [facility] ([facility]) [address] [place] [address]. [place] [address] VIR POCT Nursing Urine Macroscop ic UAon 02-08-2025 Bilirubin Ql (U) Negative Negative [facility] Glucose [Mass/Vol] Negative Negative [facility] Hemoglobin Ql (U) Negative Negative [facility] Interpretation and review of laboratory results Abnormal [facility] Ketones (U) [Mass/Vol] Negative Negative [facility] Leukocyte esterase Test strip Ql (U) Negative Negative [facility] Nitrite Ql (U) Negative Negative [facility] pH (U) 7.0 [pH] 5.0, 6.0, 6.5, 7.0, 7.5, 8.0, 8.5, 5.5 [facility] Protein Ql (U) 100 mg/dL Abnormal Negative [facility] Specific gravity (U) [Rel density] 1.020 1.010, 1.015, 1.020, 1.025 [facility] Urobilinogen Qn (U) [id number] {George'U}/dL [facility] POCT , URINE (NUCG) on 02-08-2025 Beta HCG ( test) Ql (U) Negative Normal Negative, Indeterminate [facility] Comment on above: Performed By: #### C BCA #### [facility] ([facility]) [address] [place] [address]. [place] [address] VIR POCT , urineon HCG ( test) Ql (U) Negative Negative, Indeterminate [facility] Interpretation and review of laboratory results Normal [facility] PROTIME AND INRon 02-08-2025 INR 0.9 Normal 0.9-1.2 [facility] Comment on above: Performed By: #### C BCA #### [facility] ([address] [place] [address] VIR PT Coag (PPP) [Time] 10.2 s Normal 9.8-13.2 [facility] Comment on above: Performed By: #### C BCA #### [facility] ([address] [address] VIR Protime & INRon 02-08-2025 INR Coag (Platelet poor plasma or blood) [Relative time] 0.9 0.9 - 1.2 [facility] PT Coag (PPP) [Time] 10.2 s [facility] TROP I, HIGH SENSITIVITY 1 H OURon 02-08-2025 TROPONIN I, HIGH SENSITIVITY 8 ng/L Normal <16 [facility] Comment on above: Performed By: #### D DMR #### [facility] ([address] [address] VIR TROPONIN I, HIGH SENSITIVITY 0 HOURon 02-08-2025 TROPONIN I, HIGH SENSITIVITY 7 ng/L Normal <16 [facility] Comment on above: Performed By: #### C BCA #### [facility] ([address] [address] VIR Troponin I, High Sensitivity 0 Houron 02-08-2025 Interpretation and review of laboratory results Normal [facility] Troponin I.cardiac High sensitivity method [Mass/Vol] 7 ng/L NINF - 16 ng/L [facility] Troponin I, High Sensitivity 1 Houron 02-08-2025 Interpretation and review of laboratory results Normal [facility] Troponin I.cardiac High sensitivity method [Mass/Vol] 8 ng/L NINF - 16 ng/L [facility] XR CHEST 1 VWon 02-08-2025 XR CHEST 1 VW XR CHEST 1 VW STUDY: XR CHEST 1 VW INDICATION: hypertension. COMPARISON: 01/18/2025 FINDINGS/IMPRESSION: * No acute cardiopulmonary process, by radiograph. * Electronic device overlies the left chest. Right axillary/chest wall clips. Finalized by Ever Matias on 02/08/2025 6:10 PM Normal [facility] XR Chest Single viewon 02-08 STUDY: XR CHEST 1 VW INDICATION: hypertension. COMPARISON: 01/18/2025 FINDINGS/IMPRESSION: * No acute cardiopulmonary process, by radiograph. * Electronic device overlies the left chest. Right axillary/chest wall clips. Finalized by Ever Matias on 02/08/2025 6:10 PM Ever Jones MD - 02/08/2025 STUDY: XR CHEST 1 VW INDICATION: hypertension. COMPARISON: 01/18/2025 FINDINGS/IMPRESSION: * No acute cardiopulmonary process, by radiograph. * Electronic device overlies the left chest. Right axillary/chest wall clips. Finalized by Ever Matias on 02/08/2025 6:10 PM [facility] Radiology Study observation (narrative) [facility] XR Chest Single viewOrdered By: Ever Matias on 02-08-2025 [facility] Work Phone: 36on 02-07-2025 36 Patient called back with heart rate. Was at 92. Patient is worried about her blood pressure. Patient states last night it went up to 160. Patient denies any other symptoms. Normal [facility] 36 Patient called to make you aware that her BP is still running significantly high. She said today about 1 hour after taking metoprolol, her BP was 153/114. Also said her BP last night was 160 systolic. I asked her what her HR has been. She wasn't sure, and said she only sees 2 numbers on her BP cuff. I asked patient to look at it again and to have someone help her. There was a female in the background helping her. I told her Dr. Cochran will want to know what her HR is running before he increases metoprolol. She will look into this and check her HR and call me back. Normal [facility] Telephoneon 02-07-2025 Telephone [id number] Misty Elliott 1995 Date Provider Department [place] [facility] Family History Problem Relation Age of Onset Diabetes Maternal Grandmother Lupus Maternal Grandmother Kidney disease Maternal Grandmother Von Willebrand disease Son Family Status - Relation Status Age at Mother Alive Father Alive Maternal Grandmother Son Alive [facility] 36on 02-05-2025 36 Spoke with Kathleen at [facility] lab. She said as of 02/04/2025, the metanephrine send out was still in process. [facility] 36 Sent to [phone] [facility] 36 Referral sent [facility] Telephoneon 02-02-2025 Telephone [phone] Misty Elliott 1995 F Date Provider Department Center 02/02/2025 [id number] MERLINE Velasquez Family History Problem Relation Age of Onset Diabetes Maternal Grandmother Lupus Maternal Grandmother Kidney disease Maternal Grandmother Von Willebrand disease Son Family Status - Relation Status Age at Mother Alive Father Alive Maternal Grandmother Son Alive [facility] Orders Onlyon 01-29-2025 Orders Only [id number] Misty Elliott 1995 F Date Provider Department Center 01/29/2025 [id number], HISTORICAL MERLINE Velasquez Family History Problem Relation Age of Onset Diabetes Maternal Grandmother Lupus Maternal Grandmother Kidney disease Maternal Grandmother Von Willebrand disease Son Family Status - Relation Status Age at Mother Alive Father Alive Maternal Grandmother Son Alive Normal [facility] ALDOSTERONE LCMS, SERUMon ALDOSTERONE LCMS, SERUM 32.5 ng/dL Abnormal 0.0 - 30.0 ng/dL [facility] Comment on above: This test was develo ped and its performance characteristics determined by [facility]. It has not been cleared or approved by the Food and Drug Administration. Performed at: [address] [id number] [employer] Helper: Ashwin Rahman MD, Phone: [phone] Interpretation and review of laboratory results Abnormal [facility] RENIN,PLASMAon 01-28-2025 Interpretation and review of laboratory results Abnormal [facility] RENIN ACTIVITY, PLASMA 17.193 Abnormal [facility] Comment on above: This test was develo ped and its performance characteristics determined by [facility]. It has not been cleared or approved by the Food and Drug Administration. Performed at: [facility] [address] [id number] [employer] Helper: Ashwin Rahman MD, Phone: [phone] [facility] e Office Visiton 01-22-2025 Follow-up visit [id number] Misty Elliott 1995 F Date Provider Department Center 01/22/2025 FABIAN PARSONS CARD [facility] Family History Problem Relation Age of Onset Diabetes Maternal Grandmother Lupus Maternal Grandmother Kidney disease Maternal Grandmother Von Willebrand disease Son Family Status - Relation Status Age at Mother Alive Father Alive Maternal Grandmother Son Alive Level of Service:[id number] MD OFFICE/OUTPATIENT NEW MODERATE MDM 45 MINUTES Normal [facility] CBC WITH AUTO DIFFERENTIALon 01-18-2025 BASOPHILS ABSOLUTE COUNT (10*3/UL) BY AUTOMATED COUNT 0.1 10*3/uL Normal 0.0-0.2 [facility] Comment on above: Performed By: #### C BCA #### [facility] ([address] [place] [address] VIR BASOPHILS RELATIVE PERCENT BY AUTOMATED COUNT 1.0 % Normal [facility] Comment on above: Performed By: #### C BCA #### [facility] ([address] [address] VIR CELLAVISION DIFFERENTIAL TYPE AUTOMATED DIFFERENTIAL Normal [facility] Comment on above: Performed By: #### C BCA #### [facility] ([address] [place] [address] VIR Eosinophils (Bld) [#/Vol] 0.1 10*3/uL Normal 0.0-0.4 [facility] Comment on above: Performed By: #### C BCA #### [facility] ([address] [place] [address] VIR EOSINOPHILS RELATIVE PERCENT BY AUTOMATED COUNT 0.5 % Normal [facility] Comment on above: Performed By: #### C BCA #### [facility] ([address] [address] VIR Erythrocyte distribution width (RBC) [Ratio] 14.2 % Normal 11.5-15 [facility] Comment on above: Performed By: #### C BCA #### [facility] ([address] [address] VIR Hematocrit (Bld) [Volume fraction] 43.1 % Normal 35-47 [facility] Comment on above: Performed By: #### C BCA #### [facility] ([address] [address] VIR Hemoglobin (Bld) [Mass/Vol] 14.7 g/dL Normal 11.7-15.5 [facility] Comment on above: Performed By: #### C BCA #### [facility] ([address] [address] VIR LYMPHOCYTES ABSOLUTE COUNT (10*3/UL) BY AUTOMATED COUNT 2.2 10*3/uL Normal 1.0-3.5 [facility] Comment on above: Performed By: #### C BCA #### [facility] ([address] [address] VIR LYMPHOCYTES RELATIVE PERCENT BY AUTOMATED COUNT 20.1 % Normal [facility] Comment on above: Performed By: #### C BCA #### [facility] ([address] [address] VIR MCH (RBC) [Entitic mass] 29.3 pg Normal 27-34 [facility] Comment on above: Performed By: #### C BCA #### [facility] ([address] [address] VIR MCHC (RBC) [Mass/Vol] 34.0 g/dL Normal 32-36 [facility] Comment on above: Performed By: #### C BCA #### [facility] ([address] [address] VIR MCV (RBC) [Entitic vol] 86 fL Normal 80-100 [facility] Comment on above: Performed By: #### C BCA #### [facility] ([address] [address] VIR MONOCYTES ABSOLUTE COUNT (10*3/UL) BY AUTOMATED COUNT 0.7 10*3/uL Normal 0.0-0.9 [facility] Comment on above: Performed By: #### C BCA #### [facility] ([address] [address] VIR MONOCYTES RELATIVE PERCENT BY AUTOMATED COUNT 6.8 % Normal [facility] Comment on above: Performed By: #### C BCA #### [facility] ([address] [address] VIR NEUTROPHILS ABSOLUTE COUNT BY AUTOMATED COUNT 7.8 10*3/uL High 1.5-6.6 [facility] Comment on above: Performed By: #### C BCA #### [facility] ([address] [address] VIR NEUTROPHILS RELATIVE PERCENT BY AUTOMATED COUNT 71.6 % Normal [facility] Comment on above: Performed By: #### C BCA #### [facility] ([address] [address] VIR Platelet mean volume (Bld) [Entitic vol] 9.8 fL Normal 7-12 [facility] Comment on above: Performed By: #### C BCA #### [facility] ([address] [address] VIR Platelets (Bld) [#/Vol] 257 10*3/uL Normal 150-450 [facility] Comment on above: Performed By: #### C BCA #### [facility] ([facility]) [address] [place] [address] VIR RBC COUNT 5.00 X10E12/L Normal 3.8-5.2 [facility] Comment on above: Performed By: #### C BCA #### [facility] ([facility]) [address] [place], [place] [address] [address] VIR WBC (Bld) [#/Vol] 10.9 10*3/uL Normal 4-11 [facility] Comment on above: Performed By: #### C BCA #### [facility]) [address] [place], [place] [address] [address] VIR COMPREHENSIVE METABOLIC PANE Jaison 01-18-2025 Albumin [Mass/Vol] 4.3 g/dL Normal 3.2-5.3 [facility] Comment on above: Performed By: #### C MP #### [facility] ([address] [place] [address] VIR ALP [Catalytic activity/Vol] 95 U/L Normal 39-130 [facility] Comment on above: Performed By: #### C MP #### [facility] ([address] [place] [address] VIR ALT [Catalytic activity/Vol] 16 U/L Normal <=31 [facility] Comment on above: Performed By: #### C MP #### [facility] ([address] [place] [address] VIR Anion gap [Moles/Vol] 12 mmol/L Normal 5-15 [facility] Comment on above: Performed By: #### C MP #### [facility] ([address] [place] [address] VIR AST [Catalytic activity/Vol] 17 U/L Normal <=41 [facility] Comment on above: Performed By: #### C MP #### [facility]) [address] [place] [address] VIR Bilirubin [Mass/Vol] 0.8 mg/dL Normal 0.3-1.2 [facility] Comment on above: Performed By: #### C MP #### [facility] ([place] [address] [place] [address] VIR Calcium [Mass/Vol] 9.2 mg/dL Normal 8.5-10.5 [facility] Comment on above: Performed By: #### C MP #### [facility] ([address] [place] [address] VIR Chloride [Moles/Vol] 102 mmol/L Normal 98-109 [facility] Comment on above: Performed By: #### C MP #### [facility] ([address] [place] [address] VIR CO2 [Moles/Vol] 22 mmol/L Normal 22-32 [facility] Comment on above: Performed By: #### C MP #### [facility] ([address] [place] [address] VIR Creatinine [Mass/Vol] 0.85 mg/dL Normal 0.40-1.00 [facility] Comment on above: Result Comment: METH OD TRACEABLE TO IDMS STANDARD Performed By: #### C MP #### [facility] ([place] [address] [place] [address] VIR EGFR (CKD-EPI) NON-RACE DEPENDENT >^90 Normal >=60 [facility] Comment on above: Result Comment: eGFR not reported due to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 Heme Neutrophils/100 WBC (Bld) 68.7 % Normal 36.0 - 75.0 % [facility] Heme Platelet mean volume (Bld) [Entitic vol] 9.1 fL Normal 6.4 - 10.8 fL Rem[facility] Heme Platelets (Bld) [#/Vol] 270.0 E9/L Normal 150.0 - 500.0 E9/L Remisol Heme RBC (Bld) [#/Vol] 4.6 E12/L Normal 4.3 - 5.9 E12/L Remisol Heme WBC corrected for nucl RBC Auto (Bld) [#/Vol] 8.4 E9/L Normal 4.0 - 11.0 E9/L Remisol Heme eGFRon 01-03-2025 eGFR 103 mL/min/1.73 m2 Normal >=59 [facility] Comment on above: Performed By: #### 1 [id number] #### [facility] [address] [place] [address] CBC (H/H, RBC, INDICES, WBC, PLT)on 12-29-2024 Erythrocyte distribution width (RBC) [Ratio] 13.6 % Normal 11.0-15.0 [facility] Comment on above: Performed By: #### 1 759, 40291 #### [facility] [place] [address] Clinical Field Specialist: Manuel Azar MD Hematocrit (Bld) [Volume fraction] 47.6 % High 35.0-45.0 [facility] Comment on above: Performed By: #### 1 759, 19237 #### [facility] [place] [address] Clinical Field Specialist: Manuel Azar MD Hemoglobin (Bld) [Mass/Vol] 15.2 g/dL Normal 11.7-15.5 [facility] Comment on above: Performed By: #### 1 759, 66899 #### [facility] [place] [address] Clinical Field Specialist: Manuel Azar MD MCH (RBC) [Entitic mass] 29.4 pg Normal 27.0-33.0 [facility] Comment on above: Performed By: #### 1 759, 86142 #### [facility] [place] [address] Clinical Field Specialist: Manuel Azar MD MCHC (RBC) [Mass/Vol] 31.9 [...] clinical condition. Performed By: #### 1 759, [id number] #### [facility] [place] [address] Clinical Field Specialist: Manuel Azar MD MCV (RBC) [Entitic vol] 92.1 fL Normal 80.0-100.0 [facility] Comment on above: Performed By: #### 1 759, 90517 #### [facility] of [address], [address] [place] [address] Clinical Field Specialist: Manuel Azar MD Platelet mean volume (Bld) [Entitic vol] 11.5 fL Normal 7.5-12.5 [facility] Comment on above: Performed By: #### 1 759, 18247 #### [facility] of [address], [address] [place] [address] Clinical Field Specialist: Manuel Azar MD Platelets (Bld) [#/Vol] 536 10*3/uL High 140-400 [facility] Comment on above: Performed By: #### 1 759, 68860 #### [facility] of [address], [address] [place] [address] Clinical Field Specialist: Manuel Azar MD RBC (Bld) [#/Vol] 5.17 10*6/uL High 3.80-5.10 [facility] Comment on above: Performed By: #### 1 759, 27565 #### [facility] of [address], [address] [place] [address] Clinical Field Specialist: Manuel Azar MD WBC (Bld) [#/Vol] 8.2 10*3/uL Normal 3.8-10.8 [facility] Comment on above: Performed By: #### 1 759, 40854 #### [facility] of [address], [address] [place] [address] Clinical Field Specialist: Manuel Azar MD [facility] 12-29-2024 Albumin [Mass/Vol] 5.0 g/dL Normal 3.6-5.1 [facility] Comment on above: Performed By: #### 1 759, 03857 #### [facility] [place] [address] Clinical Field Specialist: Manuel Azar MD Albumin/Globulin [Mass ratio] 1.4 {ratio} Normal 1.0-2.5 [facility] Comment on above: Performed By: #### 1 759, 86032 #### [facility] of [address] [place] [address] Clinical Field Specialist: Manuel Azar MD ALP [Catalytic activity/Vol] 365 U/L High 31-125 [facility] Comment on above: Performed By: #### 1 759, 08279 #### [facility] of [address], [address] [place] [address] Clinical Field Specialist: Manuel Azar MD ALT [Catalytic activity/Vol] 12 U/L Normal 6-29 [facility] Comment on above: Performed By: #### 1 759, 13469 #### [facility] of [address], [address] [place] [address] Clinical Field Specialist: Manuel Azar MD AST [Catalytic activity/Vol] 14 U/L Normal 10-30 [facility] Comment on above: Performed By: #### 1 759, 85835 #### [facility] [place] [address] Clinical Field Specialist: Manuel Azar MD Bilirubin [Mass/Vol] 1.7 mg/dL High 0.2-1.2 [facility] Comment on above: Performed By: #### 1 759, 00243 #### [facility] [place] [address] Clinical Field Specialist: Manuel Azar MD BUN/CREATININE RATIO SEE NOTE: Normal 6-22 [facility] Comment on above: Result Comment: Not Reported: BUN and Creatinine are within reference range. Performed By: #### 1 759, 28579 #### [facility] of [address], [address] [place] [address] Clinical Field Specialist: Manuel Azar MD Calcium [Mass/Vol] 10.7 mg/dL High 8.6-10.2 [facility] Comment on above: Performed By: #### 1 759, 83078 #### [facility] of [address], [address] [place] [address] Clinical Field Specialist: Manuel Azar MD Chloride [Moles/Vol] 102 mmol/L Normal 98-110 [facility] Comment on above: Performed By: #### 1 759, 63943 #### [facility] [place] [address] Clinical Field Specialist: Manuel Azar MD CO2 [Moles/Vol] 26 mmol/L Normal 20-32 [facility] Comment on above: Performed By: #### 1 759, 77861 #### [facility] [place] [address] Clinical Field Specialist: Manuel Azar MD Creatinine [Mass/Vol] 0.64 mg/dL Normal 0.50-0.96 [facility] Comment on above: Performed By: #### 1 759, 47836 #### [facility] [place] [address] Clinical Field Specialist: Manuel Azar MD GFR/1.73 sq M.predicted among non-blacks MDRD (S/P/Bld) [Vol rate/Area] 124 mL/min/{1.73_m2} Normal > OR = 60 [facility] Comment on above: Performed By: #### 1 759, 78895 #### [facility] [place] [address] Clinical Field Specialist: Manuel Azar MD Globulin (S) [Mass/Vol] 3.6 g/dL Normal 1.9-3.7 [facility] Comment on above: Performed By: #### 1 759, 73675 #### [facility] [place] [address] Clinical Field Specialist: Manuel Azar MD Glucose [Mass/Vol] 77 mg/dL Normal 65-99 [facility] Comment on above: Result Comment: Fasting reference interval Performed By: #### 1 759, 18497 #### [facility] [place] [address] Clinical Field Specialist: Manuel Azar MD Potassium [Moles/Vol] 3.8 mmol/L Normal 3.5-5.3 [facility] Comment on above: Performed By: #### 1 759, 89362 #### [facility] of [address], [address] [place] [address] Clinical Field Specialist: Manuel Azar MD Protein [Mass/Vol] 8.6 g/dL High 6.1-8.1 [facility] Comment on above: Performed By: #### 1 759, 12617 #### [facility] [place] [address] Clinical Field Specialist: Manuel Azar MD Sodium [Moles/Vol] 140 mmol/L Normal 135-146 [facility] Comment on above: Performed By: #### 1 759, 57374 #### [facility] [place] [address] Clinical Field Specialist: Manuel Azar MD Urea nitrogen [Mass/Vol] 8 mg/dL Normal 7-25 [facility] Comment on above: Performed By: #### 1 759, 64653 #### [facility] [place] [address] Clinical Field Specialist: Manuel Azar MD AMYLASEon 12-12-2024 Amylase [Catalytic activity/Vol] 53 U/L Normal 28-100 [facility] Comment on above: Performed By: #### A MYL ####[facility] ([facility])[address] [place] [address] VIR BILIRUBIN, DIRECTon 12-13-19 25 Bilirubin.indirect [Mass/Vol] 1.3 mg/dL High <=0.4 [facility] Comment on above: Performed By: #### D LISA ####[facility] ([facility])[address], [place] [address] VIR CBC (NO DIFF)on 12-12-2024 Erythrocyte distribution width (RBC) [Ratio] 13.3 % Normal 11.5-15 [facility] Comment on above: Performed By: #### C BC ####[facility] ([facility])[address] [place] [place] [address] VIR Hematocrit (Bld) [Volume fraction] 35.8 % Normal 35-47 [facility] Comment on above: Performed By: #### C BC ####[facility] ([facility])[address], [place] [address] VIR Hemoglobin (Bld) [Mass/Vol] 12.1 g/dL Normal 11.7-15.5 [facility] Comment on above: Performed By: #### C BC ####[facility] ([facility])[address], [place] [address] VIR MCH (RBC) [Entitic mass] 29.6 pg Normal 27-34 [facility] Comment on above: Performed By: #### C BC ####[facility] ([facility])[address], [place] [address] VIR MCHC (RBC) [Mass/Vol] 33.9 g/dL Normal 32-36 [facility] Comment on above: Performed By: #### C BC ####[facility] ([facility])[address], [place] [address] VIR MCV (RBC) [Entitic vol] 87 fL Normal 80-100 [facility] Comment on above: Performed By: #### C BC ####[facility] ([facility])[address], [place] [address] VIR Platelet mean volume (Bld) [Entitic vol] 9.1 fL Normal 7-12 [facility] Comment on above: Performed By: #### C BC ####[facility] ([facility])[address], [place] [address] VIR Platelets (Bld) [#/Vol] 421 10*3/uL Normal 150-450 [facility] Comment on above: Performed By: #### C BC ####[facility] ([facility])[address], [place] [address] VIR RBC COUNT 4.10 X10E12/L Normal 3.8-5.2 [facility] Comment on above: Performed By: #### C BC ####[facility])[address], [place] [address] VIR WBC (Bld) [#/Vol] 12.7 10*3/uL High 4-11 [facility] Comment on above: Performed By: #### C BC ####[facility] ([facility])[address], [place] [address] VIR COMPREHENSIVE METABOLIC PANE Jaison 12-12-2024 Albumin [Mass/Vol] 3.0 g/dL Low 3.2-5.3 [facility] Comment on above: Performed By: #### C MP ####[facility] ([facility])[address], [place] [address] VIR ALP [Catalytic activity/Vol] 286 U/L High 39-130 [facility] Comment on above: Performed By: #### C MP ####[facility])[address], [place] [address] VIR ALT [Catalytic activity/Vol] 77 U/L High <=31 [facility] Comment on above: Performed By: #### C MP ####[facility])[address], [place] [address] VIR Anion gap [Moles/Vol] 11 mmol/L Normal 5-15 [facility] Comment on above: Performed By: #### C MP ####[facility])[address], [place] [address] VIR AST [Catalytic activity/Vol] 39 U/L Normal <=41 [facility] Comment on above: Performed By: #### C MP ####[facility] ([facility])[address], [place] [address] VIR Bilirubin [Mass/Vol] 2.6 mg/dL High 0.3-1.2 [facility] Comment on above: Performed By: #### C MP ####[facility])[address], [place] [address] VIR Calcium [Mass/Vol] 8.9 mg/dL Normal 8.5-10.5 [facility] Comment on above: Performed By: #### C MP ####[facility])[address], [place] [address] VIR Chloride [Moles/Vol] 95 mmol/L Low 98-109 [facility] Comment on above: Performed By: #### C MP ####[facility])[address], [place] [address] VIR CO2 [Moles/Vol] 26 mmol/L Normal 22-32 [facility] Comment on above: Performed By: #### C MP ####[facility])[address], [place] [address] VIR Creatinine [Mass/Vol] 0.64 mg/dL Normal 0.40-1.00 [facility] Comment on above: Result Comment: METH OD TRACEABLE TO IDMS STANDARD Performed By: #### C MP ####[facility])[address], [place] [address] VIR EGFR (CKD-EPI) NON-RACE DEPENDENT >^90 Normal >=60 [facility] Comment on above: Result Comment: Repo rted eGFR is based on the CKD-EPI 2020 equation that does not use a race coefficient. Performed By: #### C MP ####[facility] ([facility])[address], [place] [address] VIR Glucose [Mass/Vol] 103 mg/dL High 65-99 [facility] Comment on above: Performed By: #### C MP ####[facility] ([facility])[address], [place] [address] VIR Potassium [Moles/Vol] 3.6 mmol/L Normal 3.5-5.0 [facility] Comment on above: Performed By: #### C MP ####[facility])[address], [place] [address] VIR Protein [Mass/Vol] 5.8 g/dL Low 6.0-8.0 [facility] Comment on above: Performed By: #### C MP ####[facility])[address], [place] [address] VIR Sodium [Moles/Vol] 132 mmol/L Low 134-146 [facility] Comment on above: Performed By: #### C MP ####[facility])[address], [place] [address] VIR Urea nitrogen [Mass/Vol] 6 mg/dL Normal 5-23 [facility] Comment on above: Performed By: #### C MP ####[facility] ([facility])[address], [place] [address] VIR LACTATE W/ REFLEXon 12-13-19 25 LACTATE W/REFLEX 0.5 mmol/L Normal 0.4-2.0 [facility] Comment on above: Order Comment: Resul t did not trigger repeat Lactate,re-order if needed. Performed By: #### L ACTS ####[facility] ([facility])[address], [place] [address] VIR LIPASEon 12-12-2024 Lipase [Catalytic activity/Vol] 47 U/L Normal 11-82 [facility] Comment on above: Performed By: #### L IPA ####[facility] ([facility])[address], [place] [address] VIR XR CHEST 1 VWon 12-12-2024 XR CHEST 1 VW XR CHEST 1 VW Single view chest History: Trauma injury; Lung atelect. Chest pain. Comparison: 12/26/2024 Findings: Single portable view of the chest. Cardiac silhouette is normal in size. Trachea midline. No pleural effusion or pneumothorax. Stable bibasilar opacities. Impression: 1. Stable appearance of the chest with bibasilar opacities. Finalized by Yeyo Jett MD on 12/12/2024 8:36 AM Normal [facility] AMYLASEon 12-11-2024 Amylase [Catalytic activity/Vol] 69 U/L Normal 28-100 [facility] Comment on above: Performed By: #### L IPA #### [facility]) [address] [place] [address] VIR BASIC METABOLIC PANELon Anion gap [Moles/Vol] 10 mmol/L Normal 5-15 [facility] Comment on above: Performed By: #### L IPA #### [facility] ([facility]) [address] [place] [address] VIR Calcium [Mass/Vol] 9.4 mg/dL Normal 8.5-10.5 [facility] Comment on above: Performed By: #### L IPA #### [facility] ([facility]) [address] [place] [address] VIR Chloride [Moles/Vol] 95 mmol/L Low 98-109 [facility] Comment on above: Performed By: #### L IPA #### [facility] ([facility]) [address] [place] [address] VIR CO2 [Moles/Vol] 26 mmol/L Normal 22-32 [facility] Comment on above: Performed By: #### L IPA #### [facility] ([facility]) [address] [place] [address] VIR Creatinine [Mass/Vol] 0.68 mg/dL Normal 0.40-1.00 [facility] Comment on above: Result Comment: METH OD TRACEABLE TO IDMS STANDARD Performed By: #### L IPA #### [facility] ([facility]) [address] [place] [address] VIR EGFR (CKD-EPI) NON-RACE DEPENDENT >^90 Normal >=60 [facility] Comment on above: Result Comment: Repo rted eGFR is based on the CKD-EPI 2020 equation that does not use a race coefficient. Performed By: #### L IPA #### [facility] ([facility]) [address] [place] [address] VIR Glucose [Mass/Vol] 87 mg/dL Normal 65-99 [facility] Comment on above: Performed By: #### L IPA #### [facility] ([facility]) [address] [place] [address] VIR Potassium [Moles/Vol] 3.5 mmol/L Normal 3.5-5.0 [facility] Comment on above: Performed By: #### L IPA #### [facility]) [address] [place] [address] VIR Sodium [Moles/Vol] 131 mmol/L Low 134-146 [facility] Comment on above: Performed By: #### L IPA #### [facility] ([facility]) [address] [place] [address] VIR Urea nitrogen [Mass/Vol] 5 mg/dL Normal 5-23 [facility] Comment on above: Performed By: #### L IPA #### [facility] ([facility]) [address] [place] [address] VIR BLOOD GAS, ARTERIALon 2024 BASE,EXCESS 2.0 mmol/L Normal 0.0-2.0 [facility] Comment on above: Performed By: #### A BG ####[facility] ([facility])[address] [place] [address] VIR HCO3 (Bld) [Moles/Vol] 24.9 mmol/L Normal 22.0-26.0 [facility] Comment on above: Performed By: #### A BG ####[facility] ([facility])[address] [place] [address] VIR INSP. O2 CONC. 21 % Normal [facility] Comment on above: Performed By: #### A BG ####[facility] ([facility])[address] [place] [address] VIR Oxygen saturation in Blood 93.0 % Normal >90.0 [facility] Comment on above: Performed By: #### A BG ####[facility] ([facility])[address] [place] [address] VIR PCO2 ARTERIAL 33.9 mmHg Low 35.0-45.0 [facility] Comment on above: Performed By: #### A BG ####[facility] ([facility])[address] [place] [address] VIR PCO2 MARVIN. FOR TEMP 34.0 mmHg Normal [facility] Comment on above: Performed By: #### A BG ####[facility] ([facility])[address] [place] [address] VIR PH ARTERIAL 7.475 High 7.350-7.450 [facility] Comment on above: Performed By: #### A BG ####[facility] ([facility])[address] [place] [address] VIR PH MARVIN. FOR TEMP 7.473 Normal [facility] Comment on above: Performed By: #### A BG ####[facility] ([facility])[address] [place] [address] VIR PO2 ARTERIAL 61 mmHg Low 80-100 [facility] Comment on above: Performed By: #### A BG ####[facility] ([facility])[address] [place] [address] VIR PO2 MARVIN. FOR TEMP 61 mmHg Normal [facility] Comment on above: Performed By: #### A BG ####[facility] ([facility])[address] [place] [address] VIR POC JACKELINE'S TEST Pass Normal [facility] Comment on above: Performed By: #### A BG ####[facility] ([facility])[address] [place] [address] VIR SAMPLE SITE R Rad Normal [facility] Comment on above: Performed By: #### A BG ####[facility] ([facility])[address] [facility] [address] VIR SAMPLE TYPE ARTERIAL Normal [facility] Comment on above: Performed By: #### A BG ####[facility] ([facility])[address] [place] [address] VIR SOURCE OF OXYGEN [facility] Comment on above: Performed By: #### A BG ####[facility] ([facility])[address] [place] [address] VIR CBC (NO DIFF)on 12-11-2024 Erythrocyte distribution width (RBC) [Ratio] 13.2 % Normal 11.5-15 [facility] Comment on above: Performed By: #### L IPA #### [facility] ([facility]) [address] [place] [address] VIR Hematocrit (Bld) [Volume fraction] 33.2 % Low 35-47 [facility] Comment on above: Performed By: #### L IPA #### [facility] ([facility]) [address] [place] [address] VIR Hemoglobin (Bld) [Mass/Vol] 11.4 g/dL Low 11.7-15.5 [facility] Comment on above: Performed By: #### L IPA #### [facility] ([facility]) [address] [place] [address] VIR MCH (RBC) [Entitic mass] 30.1 pg Normal 27-34 [facility] Comment on above: Performed By: #### L IPA #### [facility] ([facility]) [address] [place] [address] VIR MCHC (RBC) [Mass/Vol] 34.2 g/dL Normal 32-36 [facility] Comment on above: Performed By: #### L IPA #### [facility] ([facility]) [address] [place] [address] VIR MCV (RBC) [Entitic vol] 88 fL Normal 80-100 [facility] Comment on above: Performed By: #### L IPA #### [facility] ([facility]) [address] [place] [address] VIR Platelet mean volume (Bld) [Entitic vol] 8.4 fL Normal 7-12 [facility] Comment on above: Performed By: #### L IPA #### [facility] ([facility]) [address] [place] [address] VIR Platelets (Bld) [#/Vol] 294 10*3/uL Normal 150-450 [facility] Comment on above: Performed By: #### L IPA #### [facility] ([facility]) [address] [place] [address] VIR RBC COUNT 3.77 X10E12/L Low 3.8-5.2 [facility] Comment on above: Performed By: #### L IPA #### [facility] ([facility]) [address] [place] [address] VIR WBC (Bld) [#/Vol] 13.2 10*3/uL High 4-11 [facility] Comment on above: Performed By: #### L IPA #### [facility] ([facility]) [address] [place] [address] VIR Erythrocyte distribution width (RBC) [Ratio] 13.1 % Normal 11.5-15 [facility] Comment on above: Performed By: #### L IPA #### [facility] ([facility]) [address] [place] [address] VIR Hemoglobin (Bld) [Mass/Vol] 13.0 g/dL Normal 11.7-15.5 [facility] Comment on above: Performed By: #### L IPA #### [facility] ([facility]) [address] [place] [address] VIR MCH (RBC) [Entitic mass] 29.7 pg Normal 27-34 [facility] Comment on above: Performed By: #### L IPA #### [facility] ([facility]) [address] [place] [address] VIR MCHC (RBC) [Mass/Vol] 34.2 g/dL Normal 32-36 [facility] Comment on above: Performed By: #### L IPA #### [facility] ([facility]) [address] [place] [address] VIR MCV (RBC) [Entitic vol] 87 fL Normal 80-100 [facility] Comment on above: Performed By: #### L IPA #### [facility] ([facility]) [address] [place] [address] VIR Platelet mean volume (Bld) [Entitic vol] 9.8 fL Normal 7-12 [facility] Comment on above: Performed By: #### L IPA #### [facility] ([facility]) [address] [place] [address] VIR Platelets (Bld) [#/Vol] 410 10*3/uL Normal 150-450 [facility] Comment on above: Performed By: #### L IPA #### [facility] ([facility]) [address] [place] [address] VIR RBC COUNT 4.37 X10E12/L Normal 3.8-5.2 [facility] Comment on above: Performed By: #### L IPA #### [facility] LABORATORY ([facility]) [address] [place] [address] VIR WBC (Bld) [#/Vol] 10.7 10*3/uL Normal 4-11 [facility] Comment on above: Performed By: #### L IPA #### [facility] ([facility]) [address] [place] [address] VIR COMPREHENSIVE METABOLIC PANE Jaison 12-11-2024 Albumin [Mass/Vol] 3.3 g/dL Normal 3.2-5.3 [facility] Comment on above: Performed By: #### L IPA #### [facility] ([facility]) [address] [place] [address] VIR ALP [Catalytic activity/Vol] 294 U/L High 39-130 [facility] Comment on above: Performed By: #### L IPA #### [facility] ([facility]) [address] [place] [address] VIR ALT [Catalytic activity/Vol] 106 U/L High <=31 [facility] Comment on above: Performed By: #### L IPA #### [facility] ([facility]) [address] [place] [address] VIR Anion gap [Moles/Vol] 15 mmol/L Normal 5-15 [facility] Comment on above: Performed By: #### L IPA #### [facility] ([facility]) [address] [place] [address] VIR AST [Catalytic activity/Vol] 91 U/L High <=41 [facility] Comment on above: Performed By: #### L IPA #### [facility] ([facility]) [address] [place] [address] VIR Bilirubin [Mass/Vol] 3.2 mg/dL High 0.3-1.2 [facility] Comment on above: Performed By: #### L IPA #### [facility] ([facility]) [address] [place] [address] VIR Calcium [Mass/Vol] 9.3 mg/dL Normal 8.5-10.5 [facility] Comment on above: Performed By: #### L IPA #### [facility] ([facility]) [address] [place] [address] VIR CO2 [Moles/Vol] 22 mmol/L Normal 22-32 [facility] Comment on above: Performed By: #### L IPA #### [facility] ([facility]) [address] [place] [address] VIR Creatinine [Mass/Vol] 0.65 mg/dL Normal 0.40-1.00 [facility] Comment on above: Result Comment: METH OD TRACEABLE TO IDMS STANDARD Performed By: #### L IPA #### [facility] ([facility]) [address] [place] [address] VIR Glucose [Mass/Vol] 84 mg/dL Normal 65-99 [facility] Comment on above: Performed By: #### L IPA #### [facility] ([facility]) [address] [place] [address] VIR Potassium [Moles/Vol] 3.8 mmol/L Normal 3.5-5.0 [facility] Comment on above: Performed By: #### L IPA #### [facility] ([facility]) [address] [place] [address] VIR Protein [Mass/Vol] 6.6 g/dL Normal 6.0-8.0 [facility] Comment on above: Performed By: #### L IPA #### [facility] ([facility]) [address] [place] [address] VIR Sodium [Moles/Vol] 132 mmol/L Low 134-146 [facility] Comment on above: Performed By: #### L IPA #### [facility] ([facility]) [address] [place] [address] ABDOMEN AND PELVIS W CONT on 12-11-2024 CT ABDOMEN AND PELVIS W CONT CT ABDOMEN AND PELVIS W CONT STUDY: ABDOMEN AND PELVIS CT WITH CONTRAST [...] low as reasonably achievable. Finalized by Franklin Velzáquez MD on 12/11/2024 2:19 AM Normal [facility] HEMOGLOBIN AND HEMATOCRIT, B [facility] 12-11-2024 Hematocrit (Bld) [Volume fraction] 37.9 % Normal 35-47 [facility] Comment on above: Performed By: #### L IPA #### [facility] ([facility]) [address] [place] [address] VIR Hemoglobin (Bld) [Mass/Vol] 13.1 g/dL Normal 11.7-15.5 [facility] Comment on above: Performed By: #### L IPA #### [facility] ([facility]) [address] [place] [address] VIR Hematocrit (Bld) [Volume fraction] 39.9 % Normal 35-47 [facility] Comment on above: Performed By: #### L IPA #### [facility] ([facility]) [address] [place] [address] VIR Hemoglobin (Bld) [Mass/Vol] 13.9 g/dL Normal 11.7-15.5 [facility] Comment on above: Performed By: #### L IPA #### [facility] ([facility]) [address] [place] [address] VIR LACTATE W/ REFLEXon 12-12-19 25 LACTATE W/ REFLEX LACTS LACTATE W/ REFLEX Cancelled Normal [facility] LIPASEon 12-11-2024 Lipase [Catalytic activity/Vol] 76 U/L Normal 11-82 [facility] Comment on above: Performed By: #### L IPA #### [facility] ([facility]) [address] [place] [address] VIR LIVER PANELon 12-11-2024 Albumin [Mass/Vol] 3.4 g/dL Normal 3.2-5.3 [facility] Comment on above: Performed By: #### L IPA #### [facility] ([facility]) [address] [place] [address] VIR ALP [Catalytic activity/Vol] 298 U/L High 39-130 [facility] Comment on above: Performed By: #### L IPA #### [facility] ([facility]) [address] [place] [address] VIR ALT [Catalytic activity/Vol] 110 U/L High <=31 [facility] Comment on above: Performed By: #### L IPA #### [facility] ([facility]) [address] [place] [address] VIR AST [Catalytic activity/Vol] 78 U/L High <=41 [facility] Comment on above: Performed By: #### L IPA #### [facility] ([facility]) [address] [place] [address] VIR Bilirubin [Mass/Vol] 3.1 mg/dL High 0.3-1.2 [facility] Comment on above: Performed By: #### L IPA #### [facility] ([facility]) [address] [place] [address] VIR Bilirubin.indirect [Mass/Vol] 1.3 mg/dL High <=0.4 [facility] Comment on above: Result Comment: R-Sp ecimen slightly hemolyzed, results decreased Performed By: #### L IPA #### [facility] ([facility]) [address] [place] [address] VIR Protein [Mass/Vol] 6.8 g/dL Normal 6.0-8.0 [facility] Comment on above: Performed By: #### L IPA #### [facility] ([facility]) [address] [place] [address] VIR XR CHEST 1 VWon 12-11-2024 XR CHEST 1 VW XR CHEST 1 VW CHEST 1 VIEW HISTORY: Tachycardia COMPARISON: 12/06/2024 IMPRESSION: * Low lung volumes. Moderate bibasilar opacities may represent atelectasis or pneumonia, increased since previous study. * No pleural effusions or pneumothorax. * Normal heart size. Finalized by Franklin Velázquez MD on 12/11/2024 9:19 PM Normal [facility] AMYLASEon 12-10-2024 Amylase [Catalytic activity/Vol] 73 U/L Normal 28-100 [facility] Comment on above: Performed By: #### A MYL #### [facility] ([facility]) [address] [place] [address] VIR BASIC METABOLIC PANELon 05 Anion gap [Moles/Vol] 10 mmol/L Normal 5-15 [facility] Comment on above: Performed By: #### A MYL #### [facility] ([facility]) [address] [place] [address] VIR Calcium [Mass/Vol] 9.6 mg/dL Normal 8.5-10.5 [facility] Comment on above: Performed By: #### A MYL #### [facility] ([facility]) [address] [place] [address] VIR Chloride [Moles/Vol] 96 mmol/L Low 98-109 [facility] Comment on above: Performed By: #### A MYL #### [facility] ([facility]) [address] [place] [address] VIR CO2 [Moles/Vol] 25 mmol/L Normal 22-32 [facility] Comment on above: Performed By: #### A MYL #### [facility] ([facility]) [address] [place] [address] VIR Creatinine [Mass/Vol] 0.67 mg/dL Normal 0.40-1.00 [facility] Comment on above: Result Comment: METH OD TRACEABLE TO IDMS STANDARD Performed By: #### A MYL #### [facility] ([facility]) [address] [place] [address] VIR EGFR (CKD-EPI) NON-RACE DEPENDENT >^90 Normal >=60 [facility] Comment on above: Result Comment: Repo rted eGFR is based on the CKD-EPI 2020 equation that does not use a race coefficient. Performed By: #### A MYL #### [facility] ([facility]) [address] [place] [address] VIR Glucose [Mass/Vol] 94 mg/dL Normal 65-99 [facility] Comment on above: Performed By: #### A MYL #### [facility] ([facility]) [address] [place] [address] VIR Potassium [Moles/Vol] 3.5 mmol/L Normal 3.5-5.0 [facility] Comment on above: Performed By: #### A MYL #### [facility] ([facility]) [address] [place] [address] VIR Sodium [Moles/Vol] 131 mmol/L Low 134-146 [facility] Comment on above: Performed By: #### A MYL #### [facility] ([facility]) [address] [place] [address] VIR Urea nitrogen [Mass/Vol] 7 mg/dL Normal 5-23 [facility] Comment on above: Performed By: #### A MYL #### [facility] ([facility]) [address] [place] [address] VIR CBC WITH AUTO DIFFERENTIALon 12-10-2024 BASOPHILS ABSOLUTE COUNT (10*3/UL) BY AUTOMATED COUNT 0.1 10*3/uL Normal [facility] Comment on above: Performed By: #### A MYL #### [facility] ([facility]) [address] [place] [address] VIR BASOPHILS RELATIVE PERCENT BY AUTOMATED COUNT 0.7 % Normal [facility] Comment on above: Performed By: #### A MYL #### [facility] ([facility]) [address] [place] [address] VIR CELLAVISION DIFFERENTIAL TYPE AUTOMATED DIFFERENTIAL Normal [facility] Comment on above: Performed By: #### A MYL #### [facility] ([facility]) [address] [place] [address] VIR Eosinophils (Bld) [#/Vol] 0.2 10*3/uL Normal [facility] Comment on above: Performed By: #### A MYL #### [facility] ([facility]) [address] [place] [address] VIR EOSINOPHILS RELATIVE PERCENT BY AUTOMATED COUNT 2.0 % Normal [facility] Comment on above: Performed By: #### A MYL #### [facility] ([facility]) [address] [place] [address] VIR Erythrocyte distribution width (RBC) [Ratio] 13.3 % Normal 11.5-15 [facility] Comment on above: Performed By: #### A MYL #### [facility] ([facility]) [address] [place] [address] VIR Hematocrit (Bld) [Volume fraction] 40.5 % Normal 35-47 [facility] Comment on above: Performed By: #### A MYL #### [facility] ([facility]) [address] [facility] [address] [place] [address] VIR Hemoglobin (Bld) [Mass/Vol] 13.7 g/dL Normal 11.7-15.5 [facility] Comment on above: Performed By: #### A MYL #### [facility] ([facility]) [address] [place] [address] VIR LYMPHOCYTES ABSOLUTE COUNT (10*3/UL) BY AUTOMATED COUNT 1.1 10*3/uL Normal [facility] Comment on above: Performed By: #### A MYL #### [facility] ([facility]) [address] [facility] [address] [place] [address] VIR LYMPHOCYTES RELATIVE PERCENT BY AUTOMATED COUNT 14.8 % Normal [facility] Comment on above: Performed By: #### A MYL #### [facility] ([facility]) [address] [place] [address] VIR MCH (RBC) [Entitic mass] 29.9 pg Normal 27-34 [facility] Comment on above: Performed By: #### A MYL #### [facility] ([facility]) [address] [place] [address] VIR MCHC (RBC) [Mass/Vol] 33.9 g/dL Normal 32-36 [facility] Comment on above: Performed By: #### A MYL #### [facility] ([facility]) [address] [place] [address] VIR MCV (RBC) [Entitic vol] 88 fL Normal 80-100 [facility] Comment on above: Performed By: #### A MYL #### [facility] ([facility]) [address] [place] [address] VIR MONOCYTES ABSOLUTE COUNT (10*3/UL) BY AUTOMATED COUNT 0.9 10*3/uL Normal [facility] Comment on above: Performed By: #### A MYL #### [facility] ([facility]) [address] [place] [address] VIR MONOCYTES RELATIVE PERCENT BY AUTOMATED COUNT 11.6 % Normal [facility] Comment on above: Performed By: #### A MYL #### [facility] ([facility]) [address] [place] [address] VIR NEUTROPHILS ABSOLUTE COUNT BY AUTOMATED COUNT 5.5 10*3/uL Normal [facility] Comment on above: Performed By: #### A MYL #### [facility] ([facility]) [address] [place] [address] VIR NEUTROPHILS RELATIVE PERCENT BY AUTOMATED COUNT 70.9 % Normal [facility] Comment on above: Performed By: #### A MYL #### [facility] ([facility]) [address] [place] [address] VIR Platelet mean volume (Bld) [Entitic vol] 10.2 fL Normal 7-12 [facility] Comment on above: Performed By: #### A MYL #### [facility] ([facility]) [address] [place] [address] VIR Platelets (Bld) [#/Vol] 293 10*3/uL Normal 150-450 [facility] Comment on above: Performed By: #### A MYL #### [facility] ([facility]) [address] [place] [address] VIR RBC COUNT 4.59 [id number]/L Normal 3.8-5.2 [facility] Comment on above: Performed By: #### A MYL #### [facility] ([facility]) [address] [place] [address] VIR WBC (Bld) [#/Vol] 7.7 10*3/uL Normal 4-11 [facility] Comment on above: Performed By: #### A MYL #### [facility] ([facility]) [address] [place] [address] VIR HEMOGLOBIN AND HEMATOCRIT, B LOODon 12-10-2024 Hematocrit (Bld) [Volume fraction] 37.5 % Normal 35-47 [facility] Comment on above: Performed By: #### A MYL #### [facility] ([facility]) [address] [place] [address] VIR Hemoglobin (Bld) [Mass/Vol] 12.7 g/dL Normal 11.7-15.5 [facility] Comment on above: Performed By: #### A MYL #### [facility] ([facility]) [address] [place] [address] VIR LIPASEon 12-10-2024 Lipase [Catalytic activity/Vol] 89 U/L High 11-82 [facility] Comment on above: Performed By: #### A MYL #### [facility] ([facility]) [address] [place] [address] VIR LIVER PANELon 12-10-2024 Albumin [Mass/Vol] 3.3 g/dL Normal 3.2-5.3 [facility] Comment on above: Performed By: #### A MYL #### [facility] ([facility]) [address] [place] [address] VIR ALP [Catalytic activity/Vol] 164 U/L High 39-130 [facility] Comment on above: Performed By: #### A MYL #### [facility] ([facility]) [address] [place] [address] VIR ALT [Catalytic activity/Vol] 62 U/L High <=31 [facility] Comment on above: Performed By: #### A MYL #### [facility] ([facility]) [address] [place] [address] VIR AST [Catalytic activity/Vol] 42 U/L High <=41 [facility] Comment on above: Performed By: #### A MYL #### [facility] ([facility]) [address] [place] [address] VIR Bilirubin [Mass/Vol] 2.8 mg/dL High 0.3-1.2 [facility] Comment on above: Performed By: #### A MYL #### [facility] ([facility]) [address] [place] [address] VIR Bilirubin.indirect [Mass/Vol] 1.3 mg/dL High <=0.4 [facility] Comment on above: Performed By: #### A MYL #### [facility] ([facility]) [address] [place] [address] VIR Protein [Mass/Vol] 6.7 g/dL Normal 6.0-8.0 [facility] Comment on above: Performed By: #### A MYL #### [facility] ([facility]) [address] [place] [address] VIR XR ABDOMEN AP 1 VWon 2 025 XR ABDOMEN AP 1 VW XR ABDOMEN AP 1 VW Abdomen: HISTORY: Abdominal pain and distention. Single view of the abdomen was obtained. There is gaseous prominence of the small and large bowel. Right PICC line stool burden is moderate. No obvious transition point or free air. IMPRESSION: Gaseous small and large bowel prominence. This may represent ileus. Close follow-up recommended. Finalized by Erik Solis MD on 12/10/2024 8:47 AM Normal [facility] AMYLASEon 12-09-2024 Amylase [Catalytic activity/Vol] 90 U/L Normal 28-100 [facility] Comment on above: Performed By: #### A LCO #### [facility] ([facility]) [address] [place] [address] VIR BASIC METABOLIC PANELon 05-0 Anion gap [Moles/Vol] 8 mmol/L Normal 5-15 [facility] Comment on above: Performed By: #### A LCO #### [facility] ([facility]) [address] [place] [address] VIR Calcium [Mass/Vol] 8.8 mg/dL Normal 8.5-10.5 [facility] Comment on above: Performed By: #### A LCO #### [facility] ([facility]) [address] [place] [address] VIR Chloride [Moles/Vol] 99 mmol/L Normal 98-109 [facility] Comment on above: Performed By: #### A LCO #### [facility] ([facility]) [address] [place] [address] VIR CO2 [Moles/Vol] 24 mmol/L Normal 22-32 [facility] Comment on above: Performed By: #### A LCO #### [facility] ([facility]) [address] [place] [address] VIR Creatinine [Mass/Vol] 0.63 mg/dL Normal 0.40-1.00 [facility] Comment on above: Result Comment: METH OD TRACEABLE TO IDMS STANDARD Performed By: #### A LCO #### [facility] ([facility]) [address] [place] [address] VIR EGFR (CKD-EPI) NON-RACE DEPENDENT >^90 Normal >=60 [facility] Comment on above: Result Comment: Repo rted eGFR is based on the CKD-EPI 2020 equation that does not use a race coefficient. Performed By: #### A LCO #### [facility] ([facility]) [address] [place] [address] VIR Glucose [Mass/Vol] 92 mg/dL Normal 65-99 [facility] Comment on above: Performed By: #### A LCO #### [facility] ([facility]) [address] [place] [address] VIR Potassium [Moles/Vol] 3.4 mmol/L Low 3.5-5.0 [facility] Comment on above: Performed By: #### A LCO #### [facility] ([facility]) [address] [place] [address] VIR Sodium [Moles/Vol] 131 mmol/L Low 134-146 [facility] Comment on above: Performed By: #### A LCO #### [facility] ([facility]) [address] [place] [address] VIR Urea nitrogen [Mass/Vol] 8 mg/dL Normal 5-23 [facility] Comment on above: Performed By: #### A LCO #### [facility] ([facility]) [address] [place] [address] VIR CBC WITH AUTO DIFFERENTIALon 12-09-2024 BASOPHILS ABSOLUTE COUNT (10*3/UL) BY AUTOMATED COUNT 0.1 10*3/uL Normal [facility] Comment on above: Performed By: #### A LCO #### [facility] ([facility]) [address] [address] [place] [address] VIR BASOPHILS RELATIVE PERCENT BY AUTOMATED COUNT 1.0 % Normal [facility] Comment on above: Performed By: #### A LCO #### [facility] ([facility]) [address] [place] [address] VIR CELLAVISION DIFFERENTIAL TYPE AUTOMATED DIFFERENTIAL Normal [facility] Comment on above: Performed By: #### A LCO #### [facility] ([facility]) [address] [place] [address] VIR Eosinophils (Bld) [#/Vol] 0.1 10*3/uL Normal [facility] Comment on above: Performed By: #### A LCO #### [facility] ([facility]) [address] [place] [address] VIR EOSINOPHILS RELATIVE PERCENT BY AUTOMATED COUNT 1.4 % Normal [facility] Comment on above: Performed By: #### A LCO #### [facility] ([facility]) [address] [place] [address] VIR Erythrocyte distribution width (RBC) [Ratio] 13.2 % Normal 11.5-15 [facility] Comment on above: Performed By: #### A LCO #### [facility] ([facility]) [address] [place] [address] VIR Hematocrit (Bld) [Volume fraction] 38.3 % Normal 35-47 [facility] Comment on above: Performed By: #### A LCO #### [facility] ([facility]) [address] [place] [address] VIR Hemoglobin (Bld) [Mass/Vol] 13.2 g/dL Normal 11.7-15.5 [facility] Comment on above: Performed By: #### A LCO #### [facility] ([facility]) [address] [place] [address] VIR LYMPHOCYTES ABSOLUTE COUNT (10*3/UL) BY AUTOMATED COUNT 1.0 10*3/uL Normal [facility] Comment on above: Performed By: #### A LCO #### [facility] ([facility]) [address] [place] [address] VIR LYMPHOCYTES RELATIVE PERCENT BY AUTOMATED COUNT 12.4 % Normal [facility] Comment on above: Performed By: #### A LCO #### [facility] ([facility]) [address] [place] [address] VIR MCH (RBC) [Entitic mass] 30.5 pg Normal 27-34 [facility] Comment on above: Performed By: #### A LCO #### [facility] ([facility]) [address] [place] [address] VIR MCHC (RBC) [Mass/Vol] 34.5 g/dL Normal 32-36 [facility] Comment on above: Performed By: #### A LCO #### [facility] ([facility]) [address] [place] [address] VIR MCV (RBC) [Entitic vol] 89 fL Normal 80-100 [facility] Comment on above: Performed By: #### A LCO #### [facility] ([facility]) [address] [place] [address] VIR MONOCYTES ABSOLUTE COUNT (10*3/UL) BY AUTOMATED COUNT 0.7 10*3/uL Normal [facility] Comment on above: Performed By: #### A LCO #### [facility] ([facility]) [address] [place] [address] VIR MONOCYTES RELATIVE PERCENT BY AUTOMATED COUNT 8.9 % Normal [facility] Comment on above: Performed By: #### A LCO #### [facility] ([facility]) [address] [place] [address] VIR NEUTROPHILS ABSOLUTE COUNT BY AUTOMATED COUNT 6.1 10*3/uL Normal [facility] Comment on above: Performed By: #### A LCO #### [facility] ([facility]) [address] [place] [address] VIR NEUTROPHILS RELATIVE PERCENT BY AUTOMATED COUNT 76.3 % Normal [facility] Comment on above: Performed By: #### A LCO #### [facility] ([facility]) [address] [place] [address] VIR Platelet mean volume (Bld) [Entitic vol] 10.0 fL Normal 7-12 [facility] Comment on above: Performed By: #### A LCO #### [facility] ([facility]) [address] [place] [address] VIR Platelets (Bld) [#/Vol] 221 10*3/uL Normal 150-450 [facility] Comment on above: Performed By: #### A LCO #### [facility] ([facility]) [address] [place] [address] VIR RBC COUNT 4.33 X10E12/L Normal 3.8-5.2 [facility] Comment on above: Performed By: #### A LCO #### [facility] ([facility]) [address] [place] [address] VIR WBC (Bld) [#/Vol] 8.0 10*3/uL Normal 4-11 [facility] Comment on above: Performed By: #### A LCO #### [facility] ([facility]) [address] [place] [address] VIR HEMOGLOBIN AND HEMATOCRIT, B LOODon 12-09-2024 Hematocrit (Bld) [Volume fraction] 38.1 % Normal 35-47 [facility] Comment on above: Performed By: #### A MYL #### [facility] ([facility]) [address] [place] [address] VIR Hemoglobin (Bld) [Mass/Vol] 13.1 g/dL Normal 11.7-15.5 [facility] Comment on above: Performed By: #### A MYL #### [facility] ([facility]) [address] [place] [address] VIR LIPASEon 12-09-2024 Lipase [Catalytic activity/Vol] 113 U/L High 11-82 [facility] Comment on above: Performed By: #### A MYL #### [facility] ([facility]) [address] [place] [address] VIR LIVER PANELon 12-09-2024 Albumin [Mass/Vol] 3.2 g/dL Normal 3.2-5.3 [facility] Comment on above: Performed By: #### A LCO #### [facility] ([facility]) [address] [place] [address] VIR ALP [Catalytic activity/Vol] 96 U/L Normal 39-130 [facility] Comment on above: Performed By: #### A LCO #### [facility] ([facility]) [address] [place] [address] VIR ALT [Catalytic activity/Vol] 69 U/L High <=31 [facility] Comment on above: Performed By: #### A LCO #### [facility] ([facility]) [address] [place] [address] VIR AST [Catalytic activity/Vol] 33 U/L Normal <=41 [facility] Comment on above: Performed By: #### A LCO #### [facility] ([facility]) [address] [place] [address] VIR Bilirubin [Mass/Vol] 2.4 mg/dL High 0.3-1.2 [facility] Comment on above: Performed By: #### A LCO #### [facility] ([facility]) [address] [place] [address] VIR Bilirubin.indirect [Mass/Vol] 1.2 mg/dL High <=0.4 [facility] Comment on above: Performed By: #### A LCO #### [facility] ([facility]) [address] [place] [address] VIR Protein [Mass/Vol] 6.0 g/dL Normal 6.0-8.0 [facility] Comment on above: Performed By: #### A LCO #### [facility] ([facility]) [address] [place] [address] VIR AMYLASEon 12-08-2024 Amylase [Catalytic activity/Vol] 121 U/L High 28-100 [facility] Comment on above: Performed By: #### A LCO #### [facility] ([facility]) [address] [place] [address] VIR BASIC METABOLIC PANELon 05-0 Anion gap [Moles/Vol] 10 mmol/L Normal 5-15 [facility] Comment on above: Performed By: #### C MP #### [facility] ([facility]) [address] [place] [address] VIR Calcium [Mass/Vol] 9.5 mg/dL Normal 8.5-10.5 [facility] Comment on above: Performed By: #### C MP #### [facility] ([facility]) [address] [place] [address] VIR Chloride [Moles/Vol] 98 mmol/L Normal 98-109 [facility] Comment on above: Performed By: #### C MP #### [facility] ([facility]) [address] [place] [address] VIR CO2 [Moles/Vol] 25 mmol/L Normal 22-32 [facility] Comment on above: Performed By: #### C MP #### [facility] ([facility]) [address] [place] [address] VIR Creatinine [Mass/Vol] 0.71 mg/dL Normal 0.40-1.00 [facility] Comment on above: Result Comment: METH OD TRACEABLE TO IDMS STANDARD Performed By: #### C MP #### [facility] ([facility]) [address] [place] [address] VIR EGFR (CKD-EPI) NON-RACE DEPENDENT >^90 Normal >=60 [facility] Comment on above: Result Comment: Repo rted eGFR is based on the CKD-EPI 2020 equation that does not use a race coefficient. Performed By: #### C MP #### [facility] ([facility]) [address] [place] [address] VIR Glucose [Mass/Vol] 94 mg/dL Normal 65-99 [facility] Comment on above: Performed By: #### C MP #### [facility] ([facility]) [address] [place] [address] VIR Potassium [Moles/Vol] 3.7 mmol/L Normal 3.5-5.0 [facility] Comment on above: Performed By: #### C MP #### [facility] ([facility]) [address] [place] [address] VIR Sodium [Moles/Vol] 133 mmol/L Low 134-146 [facility] Comment on above: Performed By: #### C MP #### [facility] ([facility]) [address] [place] [address] VIR Urea nitrogen [Mass/Vol] 9 mg/dL Normal 5-23 [facility] Comment on above: Performed By: #### C MP #### [facility] ([facility]) [address] [place] [address] VIR CBC WITH AUTO DIFFERENTIALon 12-08-2024 BASOPHILS ABSOLUTE COUNT (10*3/UL) BY AUTOMATED COUNT 0.1 10*3/uL Normal [facility] Comment on above: Performed By: #### A LCO #### [facility] ([facility]) [address] [place] [address] VIR BASOPHILS RELATIVE PERCENT BY AUTOMATED COUNT 0.6 % Normal [facility] Comment on above: Performed By: #### A LCO #### [facility] ([facility]) [address] [place] [address] VIR CELLAVISION DIFFERENTIAL TYPE AUTOMATED DIFFERENTIAL Normal [facility] Comment on above: Performed By: #### A LCO #### [facility] ([facility]) [address] [place] [address] VIR Eosinophils (Bld) [#/Vol] 0.0 10*3/uL Normal [facility] Comment on above: Performed By: #### A LCO #### [facility] ([facility]) [address] [place] [address] VIR EOSINOPHILS RELATIVE PERCENT BY AUTOMATED COUNT 0.5 % Normal [facility] Comment on above: Performed By: #### A LCO #### [facility]) [address] [place] [address] VIR Erythrocyte distribution width (RBC) [Ratio] 13.4 % Normal 11.5-15 [facility] Comment on above: Performed By: #### A LCO #### [facility]) [address] [place] [address] VIR Hematocrit (Bld) [Volume fraction] 41.0 % Normal 35-47 [facility] Comment on above: Performed By: #### A LCO #### [facility]) [address] [place] [address] VIR Hemoglobin (Bld) [Mass/Vol] 13.9 g/dL Normal 11.7-15.5 [facility] Comment on above: Performed By: #### A LCO #### [facility] ([facility]) [address] [place] [address] VIR LYMPHOCYTES ABSOLUTE COUNT (10*3/UL) BY AUTOMATED COUNT 0.9 10*3/uL Normal [facility] Comment on above: Performed By: #### A LCO #### [facility] [address] [place] [address] VIR LYMPHOCYTES RELATIVE PERCENT BY AUTOMATED COUNT 8.9 % Normal [facility] Comment on above: Performed By: #### A LCO #### [facility] [address] [place] [address] VIR MCH (RBC) [Entitic mass] 30.4 pg Normal 27-34 [facility] Comment on above: Performed By: #### A LCO #### [facility] [address] [place] [address] VIR MCHC (RBC) [Mass/Vol] 33.9 g/dL Normal 32-36 [facility] Comment on above: Performed By: #### A LCO #### [facility] [address] [place] [address] VIR MCV (RBC) [Entitic vol] 89 fL Normal 80-100 [facility] Comment on above: Performed By: #### A LCO #### [facility] [address] [place] [address] VIR MONOCYTES ABSOLUTE COUNT (10*3/UL) BY AUTOMATED COUNT 0.7 10*3/uL Normal [facility] Comment on above: Performed By: #### A LCO #### [facility] [address] [place] [address] VIR MONOCYTES RELATIVE PERCENT BY AUTOMATED COUNT 6.9 % Normal [facility] Comment on above: Performed By: #### A LCO #### [facility]) [address] [place] [address] VIR NEUTROPHILS ABSOLUTE COUNT BY AUTOMATED COUNT 8.4 10*3/uL Normal [facility] Comment on above: Performed By: #### A LCO #### [facility]) [address] [place] [address] VIR NEUTROPHILS RELATIVE PERCENT BY AUTOMATED COUNT 83.1 % Normal [facility] Comment on above: Performed By: #### A LCO #### [facility] [address] [place] [address] VIR Platelet mean volume (Bld) [Entitic vol] 10.2 fL Normal 7-12 [facility] Comment on above: Result Comment: I-R Performed By: #### A LCO #### [facility]) [address] [place] [address] VIR Platelets (Bld) [#/Vol] 185 10*3/uL Normal 150-450 [facility] Comment on above: Result Comment: I-R Performed By: #### A LCO #### [facility]) [address] [place] [address] VIR RBC COUNT 4.59 X10E12/L Normal 3.8-5.2 [facility] Comment on above: Performed By: #### A LCO #### [facility] [address] [place] [address] VIR WBC (Bld) [#/Vol] 10.1 10*3/uL Normal 4-11 [facility] Comment on above: Performed By: #### A LCO #### [facility] [address] [place] [address] UROGRAMon 12-08-[address] UROGRAM *ADDENDUM*I sent a chat message which was confirmed with a reply from physician reference library assistant DENISSE Oviedo at approximately 8:00 AM and I also spoke with Dr. Shankar who I believe was from the trauma service taking care of the patient at approximately 8:00 AM. Finalized by Zane Ramirez MD on 12/08/2024 8:05 AM Normal [facility] HEMOGLOBIN AND HEMATOCRIT, B LOODon 12-08-2024 Hematocrit (Bld) [Volume fraction] 37.3 % Normal 35-47 [facility] Comment on above: Performed By: #### A LCO #### [facility]) [address] [place] [address] VIR Hemoglobin (Bld) [Mass/Vol] 12.8 g/dL Normal 11.7-15.5 [facility] Comment on above: Performed By: #### A LCO #### [facility] ([facility]) [address] [place] [address] VIR LACTATE W/ REFLEXon 12-09-19 25 LACTATE W/REFLEX 1.7 mmol/L Normal 0.4-2.0 [facility] Comment on above: Order Comment: Resul t did not trigger repeat Lactate,re-order if needed. Performed By: #### A LCO #### [facility]) [address] [place] [address] VIR LIPASEon 12-08-2024 Lipase [Catalytic activity/Vol] 162 U/L High 11-82 [facility] Comment on above: Performed By: #### A LCO #### [facility]) [address] [place] [address] VIR LIVER PANELon 12-08-2024 Albumin [Mass/Vol] 3.4 g/dL Normal 3.2-5.3 [facility] Comment on above: Performed By: #### A LCO #### [facility]) [address] [place] [address] VIR ALP [Catalytic activity/Vol] 91 U/L Normal 39-130 [facility] Comment on above: Performed By: #### A LCO #### [facility]) [address] [place] [address] VIR ALT [Catalytic activity/Vol] 105 U/L High <=31 [facility] Comment on above: Performed By: #### A LCO #### [facility]) [address] [place] [address] VIR AST [Catalytic activity/Vol] 44 U/L High <=41 [facility] Comment on above: Performed By: #### A LCO #### [facility] ([facility]) [address] [place] [address] VIR Bilirubin [Mass/Vol] 2.9 mg/dL High 0.3-1.2 [facility] Comment on above: Performed By: #### A LCO #### [facility] ([facility]) [address] [place] [address] VIR Bilirubin.indirect [Mass/Vol] 1.1 mg/dL High <=0.4 [facility] Comment on above: Performed By: #### A LCO #### [facility] ([facility]) [address] [place] [address] VIR Protein [Mass/Vol] 6.5 g/dL Normal 6.0-8.0 [facility] Comment on above: Performed By: #### A LCO #### [facility] ([facility]) [address] [place] [address] VIR AMYLASEon 12-07-2024 Amylase [Catalytic activity/Vol] 93 U/L Normal 28-100 [facility] Comment on above: Performed By: #### C MP #### [facility] ([facility]) [address] [place] [address] VIR Amylase [Catalytic activity/Vol] 93 U/L Normal 28-100 [facility] Comment on above: Performed By: #### C MP #### [facility]) [address] [place] [address] VIR BASIC METABOLIC PANELon 05-0 Anion gap [Moles/Vol] 7 mmol/L Normal 5-15 [facility] Comment on above: Performed By: #### F IBR #### [facility] ([facility]) [address] [place] [address] VIR Calcium [Mass/Vol] 8.6 mg/dL Normal 8.5-10.5 [facility] Comment on above: Performed By: #### F IBR #### [facility] ([facility]) [address] [place] [address] VIR Chloride [Moles/Vol] 102 mmol/L Normal 98-109 [facility] Comment on above: Performed By: #### F IBR #### [facility] ([facility] [address] [place] [address] VIR CO2 [Moles/Vol] 25 mmol/L Normal 22-32 [facility] Comment on above: Performed By: #### F IBR #### [facility]) [address] [place] [address] VIR Creatinine [Mass/Vol]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 [facility] [place] [address] Clinical Field Specialist: Manuel Azar MD Sodium [Moles/Vol] 138 mmol/L Normal 135-146 [facility] Comment on above: Performed By: #### 1 230, , , 175, 466, 96072 #### [facility] [place] [address] Clinical Field Specialist: Manuel Azar MD Urea nitrogen [Mass/Vol] 15 mg/dL Normal 7-25 [facility] Comment on above: Performed By: #### 1 023, , , 175, 466, 88676 #### [facility] [place] [address] Clinical Field Specialist: Manuel Azar MD FOLATE, SERUMon 11-01-2024 Folate [Mass/Vol] 13.5 ng/mL Normal [facility] Comment on above: Result Comment: Refe rence Range Low: <3.4 Borderline: 3.4-5.4 Normal: >5.4 Performed By: #### 1 023, , , 1759, 466, 77528 #### [facility] [address] [facility], [address] [place] [address] Clinical Field Specialist: Manuel Azar MD TSH W/REFLEX TO FT4on 2024 TSH W/REFLEX TO FT4 1.04 mIU/L Normal [facility] Comment on above: Result Comment: Refe rence Range > or = 20 Years 0.40-4.50 Ranges First trimester 0.26-2.66 Second trimester 0.55-2.73 Third trimester 0.43-2.91 Performed By: #### 1 0231, 82925, 927, 1759, 466, 38665 #### [facility] [address], [address] [place] [address] Clinical Field Specialist: Manuel Azar MD Urinalysis macro (dipstick) panel (U)on 11-01-2024 Bilirubin, UA Negative Negative - 4(70) +++ mg/dL [facility] Blood, UA Negative Negative - 50 Russel/mcL [facility] Clarity, UA Clear [facility] Color, UA Yellow [facility] Glucose, UA Negative Negative - 1999(110) ++++ mg/dL [facility] Interpretation and review of laboratory results Normal [facility] Ketones, UA Negative Negative - 160(16) ++++ mg/dL [facility] Leukocytes, UA Negative Negative - 500+++ Alma/mcL [facility] Nitrite, UA Negative Negative - Positive [facility] pH, UA 5.5 5 - 9 [facility] Protein, UA Negative Negative - 1999(20) ++++ mg/dL [facility] Spec Grav, UA 1.02 1 - 1.03 [facility] care Urobilinogen, UA 0.2 0.2 - 12 mg/dL [facility] VITAMIN B12on 11-01-2024 Cobalamin (Vitamin B12) [Mass/Vol] 672 pg/mL Normal 200-1100 [facility] Comment on above: Performed By: #### 1 0231, [address], 927, 1759, 466, 08165 #### [facility] [address], [address] [place] [address] Clinical Field Specialist: Manuel Azar MD VITAMIN D,25-OH,TOTAL,IAon 0 11-01-2024 VITAMIN D,25-OH,TOTAL,IA 28 ng/mL Low 30-100 [facility] Comment on above: Result Comment: Nara min D Status 25-OH Vitamin D: Deficiency: <20 ng/mL Insufficiency: 20 - 29 ng/mL Optimal: > or = 30 ng/mL For 25-OH Vitamin D testing on patients on D2-supplementation and patients for whom quantitation of D2 and D3 fractions is required, the QuestAssureD(TM) 25-OH VIT D, (D2,D3), LC/MS/MS is recommended: order code 56892 (patients >2yrs). See Note 1 Note 1 For additional information, please refer to http://education.[employer]/faq/VUR292 (This link is being provided for informational/ educational purposes only.) Performed By: #### 1 0231, 47724, 1759 #### [facility] [address], [address] [place] [address] Clinical Field Specialist: Manuel Azar MD IGP,APTIMA HPV,AGE GDLNon AGE GDLN ACOG TESTING Note . [facility] Comment on above: TESTS RESULT FLAG UN ITS REF RANGE LAB Clinician Provided Cytology Information Source.............Vagina No. of containers..01 ThinPrep Vial Age Algo ACOG Jamar... FLAG LEGEND: L-Low Normal,H-High Normal,LL-Alert Low,HH-Alert High <-Panic Low,>-Panic High,A-Abnormal,AA-Critical Abnormal Performed at: 01 =G [facility] [place] [address] [facility], [place], [place] [address] Tamie Johnson MD, IGP, RFX APTIMA HPV ASCU Note . [facility] Comment on above: TESTS RESULT FLAG UN ITS REF RANGE LAB DIAGNOSIS: 02 NEGATIVE FOR INTRAEPITHELIAL LESION OR MALIGNANCY. Specimen adequacy: 02 Satisfactory for evaluation. Performed by: 02 Star Gordon, Placement Specialist ([facility]) . 02 Note: Note 02 The Pap [...] <-Panic Low,>-Panic High,A-Abnormal,AA-Critical Abnormal Performed at: 02 WB [facility] [place] [address] [facility], [place], [place] [address] Tamie Johnson MD, Performed at: =G - [facility] [address] [id number] [employer] Pl[employer] Helper: Tamie Johnson MD, Phone: [phone] Performed at: - [facility] [id number] [employer] Plater Helper: Tamie Johnson MD, Phone: [phone] [facility] XR ANKLE RT MIN 3 VWSon 08-2 XR ANKLE RT MIN 3 VWS XR ANKLE RT MIN 3 VWS HISTORY: Pain, injury COMPARISON: None FINDINGS: Multiple views right ankle were obtained. Mild soft tissue swelling over the lateral malleolus. Osseous structures are intact with normal alignment. IMPRESSION: * No acute osseous abnormality. Finalized by Arnol Vázquez MD on 04/06/2024 9:31 AM Normal [facility] Thrombin timeOrdered By: Kenneth Stout on 10-14-2023 Thrombin time Coag (PPP) [Time] See separate report. View in OnBase or in EPIC. [facility] Thrombin time Coag (PPP) [Ti me]Ordered By: Bennie Stout on 10-14-2023 [facility] CBC auto differentialon Basophils (Bld) [#/Vol] 0.1 10*3/uL [facility] Basophils/100 WBC (Bld) 1.2 % [facility] Eosinophils (Bld) [#/Vol] 0.1 10*3/uL [facility] Eosinophils/100 WBC (Bld) 0.8 % [facility] Erythrocyte distribution width (RBC) [Ratio] 13.7 % 11.5 - 15.0 % [facility] Hematocrit (Bld) [Volume fraction] 39.7 % 35 - 47 % [facility] Hemoglobin (Bld) [Mass/Vol] 13.3 g/dL 11.7 - 15.5 g/dL [facility] Lymphocytes (Bld) [#/Vol] 2.4 10*3/uL [facility] Lymphocytes/100 WBC (Bld) 36.2 % [facility] MCH (RBC) [Entitic mass] 29.2 pg 27 - 34 pg [facility] MCHC (RBC) [Mass/Vol] 33.6 g/dL 32 - 36 g/dL [facility] MCV (RBC) [Entitic vol] 87 fL 80 - 100 fL [facility] Monocytes (Bld) [#/Vol] 0.5 10*3/uL [facility] Monocytes/100 WBC (Bld) 7.3 % [facility] Neutrophils (Bld) [#/Vol] 3.7 10*3/uL [facility] Neutrophils/100 WBC (Bld) 54.5 % [facility] Platelet mean volume (Bld) [Entitic vol] 11.2 fL 7 - 12 fL [facility] Platelets (Bld) [#/Vol] 245 10*3/uL [facility] RBC (Bld) [#/Vol] 4.57 10*6/uL [facility] WBC corrected for nucl RBC Auto (Bld) [#/Vol] 6.7 [facility] Coagulation factor VIII acti vity actual/normal Coag (PPP) [Relative time]on 10-13-2023 Interpretation and review of laboratory results Abnormal [facility] Factor 8 activityon 10-13-19 24 Coagulation factor VIII activity actual/normal Coag (PPP) [Relative time] 154 % High [facility] Fibrinogenon 10-13-2023 Fibrinogen Coagulation.derived (PPP) [Mass/Vol] 262 mg/dL 190 - 480 mg/dL [facility] Fibrinogen Coagulation.deriv ed (PPP) [Mass/Vol]on 10-13-2023 [facility] Laboratory comment Osmany (Repo rt)on 10-13-2023 [facility] No Panel Informationon 10-12 [facility] Platelet function teston Platelet function (closure time) collagen+ADP induced (Bld) [Time] 102 [facility] Platelet function (closure time) collagen+EPINEPHrine induced (Bld) [Time] 163 [facility] Platelet function (closure time) Osmany (Bld) [Interp] Platelet function is normal. If patient [facility] Comment on above: history/physical exa mination gives strong indication of a bleeding disorder, consider testing for other etiologies. [facility] Unlisted Lab Test [id number] activity to [facility] 10-13-2023 Laboratory comment Osmany (Report) Sent to reference lab [facility] Unlisted Lab Test Type III c ollagen-vWF binding to [facility] 10-13-2023 Laboratory comment Osmany (Report) Sent to reference lab [facility] Unlisted Lab Test platelet e lectron [facility] 10-13-2023 Laboratory comment Osmany (Report) Sent to reference lab [facility] Von Willebrand antigen facto r VIII agon 10-13-2023 vWf Ag IA Qn (PPP) 107 % 50 - 150 % [facility] Comment on above: It has been reported that patients with group A,B or AB have a much greater mean vWf: Ag than blood group O individuals. Data from a study of 1300 normal blood donors showed: ABO type Reference range O 35.6-157.0 A 48.0-233.9 B 56.8-241.0 AB 63.8-238.2 Reference: SolCECY, et.al. The effect of ABO blood group on the diagnosis of vWd. Blood 69:1691, 1987 von Willebrand Factor Activi [facility] 10-13-2023 vWf.activity actual/normal IA (PPP) [Relative ratio] 88 % 50 - 200 % [facility] Order Reconciliationon 12-24 Order Reconciliation Page 1 Discharge Reconciliation Document Reconciliation Type: Discharge requested on behalf of Marco Antonio Toledo (Resident) done by Marco Antonio Toledo (DO (Resident)) Discharge - Reconciliation: 24-Dec-2022 10:32 by: Marco Antonio Toledo ( (Resident)) Home Medications EnteredHOME MEDICATIONS AT DISCHARGE [...] For: ex (more content not included)... Normal [facility] Patient Profile - Preop v3on 12-14-2022 Patient Profile - Preop v3 Patient Profile - Preop: Initial Info: Patient DemographicsName: MISTY ELLIOTT Date: 1995 Address: [address] [place] [address] Primary Phone [phone] How to be Addressedelena Spoken Language PreferredEnglish Source of Informationpatient Stated Reason for Admissionseptoplasty Primary Contact Name and Numberjerry Limitations on Visitors/Phone Callsnone Medications Brought to Hospitalno General Health: Weight in kg69.2 kilogram(s) Weight in jhw103.5 pound(s) Weight Methodactual (measured) Scale Typestanding Height in feet5 feet Height Methodstated Patient or Family Member Reaction to Anesthesiano previous reaction Blood Avoidance/Restriction snone Previous Transfusion Reactionnot applicable Health Mgmt: Symptoms/Conditions Managed at Homecardiovascular; gastrointestinal Are You no Are You Currently Breastfeedingno Cardiovascular Symptoms/Conditionsir regular heartbeat diagnosed years ago current EKG to be faxed to the [facility] Gastrointestinal Symptoms/ConditionsIB S Barriers to Managing Healthnone Relationship/Environ: Lives Withdependent child(lamine) Living Arrangementshouse Resource/Environmenta l Concernsnone Anticipated Transition [place] [facility] Anticipated at Transitionnone Tobacco Use: Tobacco Useyes Tobacco Typecigarettes Last Tobacco [id number] Number of Packs per Day0.5 Number of yrs10 Pack yrs5 Pre-op Checklist: Arrival [id number] Arrival Time06:46 Procedure Typeseptoplasty NPOyes Last Food [id number] 22:30 Last Clear Fluid [id number] 22:30 ID Band On Patientpatient ID (name), [...] Tonsillectomy: Past Surgical History, Active Electronic Signatures: star Russell) (Signed 24-Dec-2022 06:58) Authored: Initial Info, General Health, Health Mgmt, Relationship/Environ, Tobacco Use, Pre-op Checklist, Additional Information Cristina Ron (ROMAN) (Signed 14-Dec-2022 13:59) Authored: Initial Info, Health Mgmt, Tobacco Use, Additional Information Last Updated: 24-Dec-2022 06:58 by star Russell) Normal [facility] Tobacco Screening.on 023 Adult depression screening assessment No MG-Otolaryn golo [employer] Work Phone: Tobacco use status CPHS a) Yes MG-Otolaryngolo gy-[employer] Work Phone: Tobacco Screening. Yes MG-Rory laryngolo [employer] Work Phone: XR CSPINE 2_3 VIEWSon 2022 XR CSPINE [...] SPENSER YANG Date: 2022-11-27 10:56 Normal [facility] CBC AUTO DIFFon 08-03-2022 BASO # 0.0 103/ul Normal 0.0-0.1 [facility] Comment on above: Performed By: #### C BC #### [facility] Laboratory [address] [place] [address] Dr. Grace Phillips Basophils/100 WBC (Bld) 0.5 % Normal 0.2-2.0 [facility] Comment on above: Performed By: #### C BC #### [facility] [address] [place] [address] Dr. Grace Phillips EO # 0.1 103/ul Normal 0.0-0.7 [facility] Comment on above: Performed By: #### C BC #### [facility] [address] [place] [address] Dr. Grace Phillips Eosinophils/100 WBC (Bld) 0.7 % Critically low 0.9-7.0 [facility] Comment on above: Performed By: #### C BC #### [facility] [address] [place] [address] Dr. Grace Phillips Erythrocyte distribution width (RBC) [Ratio] 12.6 % Normal 11.0-15.0 [facility] Comment on above: Performed By: #### C BC #### [facility] [address] [place] [address] Dr. Grace Phillips Hematocrit (Bld) [Volume fraction] 35.2 % Critically low 36.0-48.0 [facility] Comment on above: Performed By: #### C BC #### [facility] [address] [place] [address] Dr. Grace Phillips Hemoglobin (Bld) [Mass/Vol] 11.9 g/dL Critically low 12.0-16.0 [facility] Comment on above: Performed By: #### C BC #### [facility] [address] [place] [address] Dr. Grace Phillips IG # 0.03 10e3/ul Normal 0.00-0.03 [facility] Comment on above: Performed By: #### C BC #### [facility] [address] [place] [address] Dr. Grace Phillips IG % 0.3 % Normal 0.0-0.5 [facility] Comment on above: Performed By: #### C BC #### [facility] [address] [place] [address] Dr. Grace Phillips LYMPH # 1.4 103/ul Normal 1.2-3.8 [facility] Comment on above: Performed By: #### C BC #### [facility] [address] [place] [address] Dr. Grace Phillips Lymphocytes/100 WBC (Bld) 16.4 % Critically low 20.5-60.0 [facility] Comment on above: Performed By: #### C BC #### [facility] [address] [place] [address] Dr. Grace Phillips MANUAL DIFF REQ NO Normal [facility] Comment on above: Performed By: #### C BC #### [facility] [address] [place] [address] Dr. Grace Phillips MCH (RBC) [Entitic mass] 29.0 pg Normal 26.7-34.0 [facility] Comment on above: Performed By: #### C BC #### [facility] [address] [place] [address] Dr. Grace Phillips MCHC (RBC) [Mass/Vol] 33.8 g/dL Normal 29.9-35.2 [facility] Comment on above: Performed By: #### C BC #### [facility] [address] [address] [address] Grace Phillips MCV (RBC) [Entitic vol] 85.6 fL Normal 81.0-99.0 [facility] Comment on above: Performed By: #### C BC #### [facility] [address] [address] [address] Grace Phillips MONO # 0.8 103/ul Normal 0.3-0.8 [facility] Comment on above: Performed By: #### C BC #### [facility] [address] [place] [address] Dr. Grace Phillips Monocytes/100 WBC (Bld) 9.0 % Normal 1.7-12.0 [facility] Comment on above: Performed By: #### C BC #### [facility] [address] [place] [address] Dr. Grace Phillips NEUT # 6.3 103/ul Normal 1.4-6.5 [facility] Comment on above: Performed By: #### C BC #### [facility] [facility] [address] [place] [address] Dr. Grace Phillips Neutrophils/100 WBC (Bld) 73.1 % Normal 43.0-75.0 [facility] Comment on above: Performed By: #### C BC #### [facility] [address] [address] [address] Grace Phillips Platelet mean volume (Bld) [Entitic vol] 11.3 fL Normal 9.5-13.5 [facility] Comment on above: Performed By: #### C BC #### [facility] [address] [address] [address] Grace Phillips PLT 305 103/ul Normal 150-450 [facility] Comment on above: Performed By: #### C BC #### [facility] [address] [place] [address] Dr. Grace Phillips RBC 4.11 106/ul Critically low 4.20-5.40 [facility] Comment on above: Performed By: #### C BC #### [facility] [address] [address] [address] Grace Phillips WBC 8.6 103/ul Normal 4.0-11.0 [facility] Comment on above: Performed By: #### C BC #### [facility] [address] [place] [address] Dr. Grace Phillips PROF 14(COMP METB)on 022 Albumin [Mass/Vol] 3.0 g/dL Critically low 3.4-5.0 [facility] Comment on above: Performed By: #### C BC #### [facility] [address] [place] [address] Dr. Grace Phillips Albumin/Globulin [Mass ratio] 0.7 {ratio} Normal [facility] Comment on above: Performed By: #### C BC #### [facility] [address] [place] [address] Dr. Grace Phillips ALP [Catalytic activity/Vol] 166 U/L Critically high 46-116 [facility] Comment on above: Performed By: #### C BC #### [facility] [address] [place] [address] Dr. Grace Phillips ALT [Catalytic activity/Vol] 76 U/L Critically high 14-59 [facility] Comment on above: Performed By: #### C BC #### [facility] [address] [place] [address] Dr. Grace Phillips Anion gap [Moles/Vol] 10.8 mmol/L Normal [facility] Comment on above: Performed By: #### C BC #### [facility] [address] [place] [address] Dr. Grace Phillips AST [Catalytic activity/Vol] 20 U/L Normal 15-37 [facility] Comment on above: Performed By: #### C BC #### [facility] [address] [place] [address] Dr. Grace Phillips Bilirubin [Mass/Vol] 0.4 mg/dL Normal 0.2-1.0 [facility] Comment on above: Performed By: #### C BC #### [facility] [address] [address] [address] Grace Phillips Calcium [Mass/Vol] 9.1 mg/dL Normal 8.5-10.1 [facility] Comment on above: Performed By: #### C BC #### [facility] [address] [address] [address] Grace Phillips Chloride [Moles/Vol] 103 mmol/L Normal 98-107 [facility] Comment on above: Performed By: #### C BC #### [facility] [address] [address] [address] Grace Phillips CO2 [Moles/Vol] 26.9 mmol/L Normal 21.0-32.0 [facility] Comment on above: Performed By: #### C BC #### [facility] [address] [place] [address] Dr. Grace Phillips Creatinine [Mass/Vol] 0.53 mg/dL Critically low 0.55-1.02 [facility] Comment on above: Performed By: #### C BC #### [facility] [address] [place] [address] Dr. Grace Phillips EGFR-AF [place] >60 Normal >=60 [facility] Comment on above: Performed By: #### C BC #### [facility] [address] [place] [address] Dr. Grace Phillips EGFR-NON AF [place]IZ[place] >60 Normal >=60 [facility] Comment on above: Performed By: #### C BC #### [facility] [address] [place] [address] Dr. Grace Phillips Globulin (S) [Mass/Vol] 4.2 g/dL Normal [facility] Comment on above: Performed By: #### C BC #### [facility] [address] [place] [address] Dr. Grace Phillips Glucose [Mass/Vol] 89 mg/dL Normal 74-106 [facility] Comment on above: Performed By: #### C BC #### [facility] [address] [place] [address] Dr. Grace Phillips Potassium [Moles/Vol] 3.7 mmol/L Normal 3.5-5.1 [facility] Comment on above: Performed By: #### C BC #### [facility] [address] [address] [address] Grace Phillips Protein [Mass/Vol] 7.2 g/dL Normal 6.4-8.2 [facility] Comment on above: Performed By: #### C BC #### [facility] [address] [address] [address] Grace Phillips Sodium [Moles/Vol] 137 mmol/L Normal 136-145 [facility] Comment on above: Performed By: #### C BC #### [facility] [address] [address] [address] Grace Phillips Urea nitrogen [Mass/Vol] 5.0 mg/dL Critically low 7.0-18.0 [facility] Comment on above: Performed By: #### C BC #### [facility] [address] [address] [address] Grace Phillips Urea nitrogen/Creatinine [Mass ratio] 9.4 mg/mg Normal [facility] Comment on above: Performed By: #### C BC #### [facility] [address] [address] [address] Grace Phillips XR ABD FLAT UP_PA [...] SPENSER YANG Date: 2022-08-03 15:34 Normal [facility] AMYLASEon 08-01-2022 Amylase [Catalytic activity/Vol] 31 U/L Normal 25-115 [facility] Comment on above: Performed By: #### C BC #### [facility] [address] [address] [address] Grace Phillips CBC AUTO DIFFon 08-01-2022 BASO # 0.0 103/ul Normal 0.0-0.1 [facility] Comment on above: Performed By: #### C BC #### [facility] [address] [address] [address] Grace Phillips Basophils/100 WBC (Bld) 0.4 % Normal 0.2-2.0 [facility] Comment on above: Performed By: #### C BC #### [facility] [address] [address] [address] Grace Phillips EO # 0.0 103/ul Normal 0.0-0.7 [facility] Comment on above: Performed By: #### C BC #### [facility] [address] [address] [address] Grace Phillips Eosinophils/100 WBC (Bld) 0.3 % Critically low 0.9-7.0 [facility] Comment on above: Performed By: #### C BC #### [facility] [address] [address] [address] Grace Phillips Erythrocyte distribution width (RBC) [Ratio] 12.8 % Normal 11.0-15.0 [facility] Comment on above: Performed By: #### C BC #### [facility] [address] [address] [address] Grace Phillips Hematocrit (Bld) [Volume fraction] 36.9 % Normal 36.0-48.0 [facility] Comment on above: Performed By: #### C BC #### [facility] [address] [address] [address] Grace Phillips Hemoglobin (Bld) [Mass/Vol] 12.3 g/dL Normal 12.0-16.0 [facility] Comment on above: Performed By: #### C BC #### [facility] [address] [address] [address] Grace Phillips IG # 0.03 10e3/ul Normal 0.00-0.03 [facility] Comment on above: Performed By: #### C BC #### [facility] [address] [place] [address] Dr. Grace Phillips IG % 0.3 % Normal 0.0-0.5 [facility] Comment on above: Performed By: #### C BC #### [facility] [address] [place] [address] Dr. Grace Phillips LYMPH # 1.2 103/ul Normal 1.2-3.8 [facility] Comment on above: Performed By: #### C BC #### [facility] [address] [place] [address] Dr. Grace Phillips Lymphocytes/100 WBC (Bld) 10.8 % Critically low 20.5-60.0 [facility] Comment on above: Performed By: #### C BC #### [facility] [address] [place] [address] Dr. Grace Phillips MANUAL DIFF REQ NO Normal [facility] Comment on above: Performed By: #### C BC #### [facility] [address] [place] [address] Dr. Grace Phillips MCH (RBC) [Entitic mass] 28.3 pg Normal 26.7-34.0 [facility] Comment on above: Performed By: #### C BC #### [facility] [address] [place] [address] Dr. Grace Phillips MCHC (RBC) [Mass/Vol] 33.3 g/dL Normal 29.9-35.2 [facility] Comment on above: Performed By: #### C BC #### [facility] [address] [place] [address] Dr. Grace Phillips MCV (RBC) [Entitic vol] 85.0 fL Normal 81.0-99.0 [facility] Comment on above: Performed By: #### C BC #### [facility] [address] [place] [address] Dr. Grace Phillips MONO # 0.7 103/ul Normal 0.3-0.8 [facility] Comment on above: Performed By: #### C BC #### [facility] [address] [place] [address] Dr. Grace Phillips Monocytes/100 WBC (Bld) 5.7 % Normal 1.7-12.0 [facility] Comment on above: Performed By: #### C BC #### [facility] [address] [place] [address] Dr. Grace Phillips NEUT # 9.4 103/ul Critically high 1.4-6.5 [facility] Comment on above: Performed By: #### C BC #### [facility] [address] [place] [address] Dr. Grace Phillips Neutrophils/100 WBC (Bld) 82.5 % Critically high 43.0-75.0 [facility] Comment on above: Performed By: #### C BC #### [facility] [address] [place] [address] Dr. Grace Phillips Platelet mean volume (Bld) [Entitic vol] 11.6 fL Normal 9.5-13.5 [facility] Comment on above: Performed By: #### C BC #### [facility] [address] [place] [address] Dr. Grace Phillips PLT 270 103/ul Normal 150-450 [facility] Comment on above: Performed By: #### C BC #### [facility] [address] [place] [address] Dr. Grace Phillips RBC 4.34 106/ul Normal 4.20-5.40 [facility] Comment on above: Performed By: #### C BC #### [facility] [address] [place] [address] Dr. Grace Phillips WBC 11.3 103/ul Critically high 4.0-11.0 [facility] Comment on above: Performed By: #### C BC #### [facility] [address] [place] [address] ABD/PELV W CONon [...] by: YING CAZARES Date: 2022-08-01 15:24 Normal [facility] ER URINE PROFILEon 2 Bilirubin Ql (U) Negative Normal NEGATIVE [facility] Comment on above: Performed By: #### U MICRO, ERUR #### [facility] [address] [place] [address] Dr. Grace Phillips Clarity (U) CLEAR Normal CLEAR [facility] Comment on above: Performed By: #### U MICRO, ERUR #### [facility] [address] [address] [address] Grace Phillips Color (U) YELLOW Normal YELLOW [facility] Comment on above: Performed By: #### U MICRO, ERUR #### [facility] [address] [address] [address] Grace KHOURYD A micrscopic examination will be performed if indicated. Normal [facility] Comment on above: Performed By: #### U MICRO, ERUR #### [facility] [address] [address] [address] Grace Phillips Glucose Ql (U) Negative Normal NEGATIVE [facility] Comment on above: Performed By: #### U MICRO, ERUR #### [facility] [address] [place] [address] Dr. Grace Phillips Hemoglobin Ql (U) LARGE Abnormal NEGATIVE [facility] Comment on above: Performed By: #### U MICRO, ERUR #### [facility] [address] [address] [address] Grace Phillips Ketones Ql (U) Negative Normal NEGATIVE [facility] Comment on above: Performed By: #### U MICRO, ERUR #### [facility] [address] [address] [address] Grace Phillips LEUKOCYTES Negative Normal NEGATIVE [facility] Comment on above: Performed By: #### U MICRO, ERUR #### [facility] [address] [address] [address] Grace Phillips Nitrite Ql (U) Negative Normal NEGATIVE [facility] Comment on above: Performed By: #### U MICRO, ERUR #### [facility] [address] [address] [address] Grace Phillips pH (U) 5.5 [pH] Normal 5-9 [facility] Comment on above: Performed By: #### U MICRO, ERUR #### [facility] [address] [place] [address] Dr. Grace Phillips SPEC GRAVITY 1.010 Normal 1.005-<=1.025 [facility] Comment on above: Performed By: #### U MICRO, ERUR #### [facility] [address] [place] [address] Dr. Grace Phillips UA PROTEIN Negative Normal NEGATIVE/ TRACE [facility] Comment on above: Performed By: #### U MICRO, ERUR #### [facility] [address] [place] [address] Dr. Grace Phillips UR MICRO IND INDICATED Normal [facility] Comment on above: Performed By: #### U MICRO, ERUR #### [facility] [address] [place] [address] Dr. Grace Phillips Urobilinogen Qn (U) 1.0 {George'U}/dL Normal 0.2 - 1. 0 [facility] Comment on above: Performed By: #### U MICRO, ERUR #### [facility] [address] [place] [address] Dr. Grace Phillips LIPASEon 08-01-2022 Lipase [Catalytic activity/Vol] 68.0 U/L Critically low 73.0-393.0 [facility] Comment on above: Performed By: #### C BC #### [facility] [address] [place] [address] Dr. Grace Phillips PROF 14(COMP METB)on 022 Albumin [Mass/Vol] 3.4 g/dL Normal 3.4-5.0 [facility] Comment on above: Performed By: #### C BC #### [facility] [address] [place] [address] Dr. Grace Phillips Albumin/Globulin [Mass ratio] 0.8 {ratio} Normal [facility] Comment on above: Performed By: #### C BC #### [facility] [address] [place] [address] Dr. Grace Phillips ALP [Catalytic activity/Vol] 203 U/L Critically high 46-116 [facility] Comment on above: Performed By: #### C BC #### [facility] [address] [place] [address] Dr. Grace Phillips ALT [Catalytic activity/Vol] 156 U/L Critically high 14-59 [facility] Comment on above: Performed By: #### C BC #### [facility] [address] [place] [address] Dr. Grace Phillips Anion gap [Moles/Vol] 13.9 mmol/L Normal [facility] Comment on above: Performed By: #### C BC #### [facility] [address] [address] [address] Grace Phillips AST [Catalytic activity/Vol] 96 U/L Critically high 15-37 [facility] Comment on above: Performed By: #### C BC #### [facility] [address] [place] [address] Dr. Grace Phillips Bilirubin [Mass/Vol] 0.7 mg/dL Normal 0.2-1.0 [facility] Comment on above: Performed By: #### C BC #### [facility] [address] [place] [address] Dr. Grace Phillips Calcium [Mass/Vol] 9.1 mg/dL Normal 8.5-10.1 [facility] Comment on above: Performed By: #### C BC #### [facility] [address] [place] [address] Dr. Grace Phillips Chloride [Moles/Vol] 98 mmol/L Normal 98-107 [facility] Comment on above: Performed By: #### C BC #### [facility] [address] [address] [address] Grace Phillips CO2 [Moles/Vol] 27.3 mmol/L Normal 21.0-32.0 [facility] Comment on above: Performed By: #### C BC #### [facility] [address] [place] [address] Dr. Grace Phillips Creatinine [Mass/Vol] 0.53 mg/dL Critically low 0.55-1.02 [facility] Comment on above: Performed By: #### C BC #### [facility] [address] [place] [address] Dr. Grace Phillips EGFR-AF [place] >60 Normal >=60 [facility] Comment on above: Performed By: #### C BC #### [facility] [address] [address] [address] Grace Phillips EGFR-NON AF [place] >60 Normal >=60 [facility] Comment on above: Performed By: #### C BC #### [facility] [address] [address] [address] Grace Phillips Globulin (S) [Mass/Vol] 4.3 g/dL Normal [facility] Comment on above: Performed By: #### C BC #### [facility] [address] [address] [address] Grace Phillips Glucose [Mass/Vol] 109 mg/dL Critically high 74-106 [facility] Comment on above: Performed By: #### C BC #### [facility] [address] [address] [address] Grace Phillips Potassium [Moles/Vol] 3.2 mmol/L Critically low 3.5-5.1 [facility] Comment on above: Performed By: #### C BC #### [facility] [address] [address] [address] Grace Phillips Protein [Mass/Vol] 7.7 g/dL Normal 6.4-8.2 [facility] Comment on above: Performed By: #### C BC #### [facility] [address] [address] [address] Grace Phillips Sodium [Moles/Vol] 136 mmol/L Normal 136-145 [facility] Comment on above: Performed By: #### C BC #### [facility] [address] [address] [address] Grace Phillips Urea nitrogen [Mass/Vol] 7.0 mg/dL Normal 7.0-18.0 [facility] Comment on above: Performed By: #### C BC #### [facility] [address] [address] [address] Grace Phillips Urea nitrogen/Creatinine [Mass ratio] 13.2 mg/mg Normal [facility] Comment on above: Performed By: #### C BC #### [facility] [address] [place] [address] Dr. Grace Phillips URINE MICROSCOPIC ONLYon BACTERIA TRACE Abnormal NONE SEEN The [facility] Comment on above: Performed By: #### U MICRO, ERUR #### [facility] [address] [place] [address] Dr. Grace Phillips Bacteria identified Cx Nom (U) NOT INDICATED Normal [facility] Comment on above: Performed By: #### U MICRO, ERUR #### [facility] [address] [place] [address] Dr. Grace Phillips CAST NONE SEEN Normal NONE SEEN The [facility] Comment on above: Performed By: #### U MICRO, ERUR #### [facility] [address] [place] [address] Dr. Grace Phillips Crystals LM Nom (Urine sed) NONE SEEN Normal NONE SEEN The [facility] Comment on above: Performed By: #### U MICRO, ERUR #### [facility] [address] [place] [address] Dr. Grace Phillips Epithelial cells LM Ql (Urine sed) MODERATE Abnormal NONE SEEN /RARE The [facility] Comment on above: Performed By: #### U MICRO, ERUR #### [facility] [address] [place] [address] Dr. Grace Phillips MUCOUS MODERATE Abnormal NONE SEEN The [facility] Comment on above: Performed By: #### U MICRO, ERUR #### [facility] [address] [place] [address] Dr. Grace Phillips RBC 2-5 Abnormal 0-2 [facility] Comment on above: Performed By: #### U MICRO, ERUR #### [facility] [address] [place] [address] Dr. Grace Phillips WBC 0-2 Abnormal NONE SEEN The [facility] Comment on above: Performed By: #### U MICRO, ERUR #### [facility] [address] [place] [address] Dr. Grace Phillips CBC AUTO DIFFon 07-27-2022 BASO # 0.1 103/ul Normal 0.0-0.1 [facility] Comment on above: Performed By: #### C BC #### [facility] [address] [address] [address] Grace Phillips Basophils/100 WBC (Bld) 1.1 % Normal 0.2-2.0 [facility] Comment on above: Performed By: #### C BC #### [facility] [address] [address] [address] Grace Phillips EO # 0.1 103/ul Normal 0.0-0.7 [facility] Comment on above: Performed By: #### C BC #### [facility] [address] [address] [address] Grace Phillips Eosinophils/100 WBC (Bld) 0.7 % Critically low 0.9-7.0 [facility] Comment on above: Performed By: #### C BC #### [facility] [address] [place] [address] Dr. Grace Phillips Erythrocyte distribution width (RBC) [Ratio] 13.0 % Normal 11.0-15.0 [facility] Comment on above: Performed By: #### C BC #### [facility] [facility] [address] [place] [address] Dr. Grace Phillips Hematocrit (Bld) [Volume fraction] 43.0 % Normal 36.0-48.0 [facility] Comment on above: Performed By: #### C BC #### [facility] [address] [place] [address] Dr. Grace Phillips Hemoglobin (Bld) [Mass/Vol] 14.4 g/dL Normal 12.0-16.0 [facility] Comment on above: Performed By: #### C BC #### [facility] [address] [place] [address] Dr. Grace Phillips IG # 0.01 10e3/ul Normal 0.00-0.03 [facility] Comment on above: Performed By: #### C BC #### [facility] [address] [place] [address] Dr. Grace Phillips IG % 0.1 % Normal 0.0-0.5 [facility] Comment on above: Performed By: #### C BC #### [facility] [address] [place] [address] Dr. Grace Phillips LYMPH # 2.8 103/ul Normal 1.2-3.8 [facility] Comment on above: Performed By: #### C BC #### [facility] [address] [place] [address] Dr. Grace Phillips Lymphocytes/100 WBC (Bld) 37.5 % Normal 20.5-60.0 [facility] Comment on above: Performed By: #### C BC #### [facility] [address] [place] [address] Dr. Grace Phillips MANUAL DIFF REQ NO Normal [facility] Comment on above: Performed By: #### C BC #### [facility] [address] [place] [address] Dr. Grace Phillips MCH (RBC) [Entitic mass] 29.0 pg Normal 26.7-34.0 [facility] Comment on above: Performed By: #### C BC #### [facility] [address] [place] [address] Dr. Grace Phillips MCHC (RBC) [Mass/Vol] 33.5 g/dL Normal 29.9-35.2 [facility] Comment on above: Performed By: #### C BC #### [facility] [address] [place] [address] Dr. Grace Phillips MCV (RBC) [Entitic vol] 86.5 fL Normal 81.0-99.0 [facility] Comment on above: Performed By: #### C BC #### [facility] [address] [place] [address] Dr. Grace Phillips MONO # 0.6 103/ul Normal 0.3-0.8 [facility] Comment on above: Performed By: #### C BC #### [facility] [address] [place] [address] Dr. Grace Phillips Monocytes/100 WBC (Bld) 8.0 % Normal 1.7-12.0 [facility] Comment on above: Performed By: #### C BC #### [facility] [address] [place] [address] Dr. Grace Phillips NEUT # 4.0 103/ul Normal 1.4-6.5 [facility] Comment on above: Performed By: #### C BC #### [facility] [address] [place] [address] Dr. Grace Phillips Neutrophils/100 WBC (Bld) 52.6 % Normal 43.0-75.0 [facility] Comment on above: Performed By: #### C BC #### [facility] [address] [place] [address] Dr. Grace Phillips Platelet mean volume (Bld) [Entitic vol] 11.8 fL Normal 9.5-13.5 [facility] Comment on above: Performed By: #### C BC #### [facility] [address] [place] [address] Dr. Grace Phillips PLT 271 103/ul Normal 150-450 [facility] Comment on above: Performed By: #### C BC #### [facility] [address] [place] [address] Dr. Grace Phillips RBC 4.97 106/ul Normal 4.20-5.40 [facility] Comment on above: Performed By: #### C BC #### [facility] [address] [place] [address] Dr. Grace Phillips WBC 7.5 103/ul Normal 4.0-11.0 [facility] Comment on above: Performed By: #### C BC #### [facility] [address] [place] [address] Dr. Grace Phillips PREG HCG QUALon 07-27-2022 , QUAL Negative Normal NEGATIVE [facility] Comment on above: Performed By: #### U MICRO, ERUR #### [facility] [address] [place] [address] Dr. Grace Phillips Covid-19 PCR (CVDTB)on 07-09 SARS-CoV-2 (COVID-19) RNA ERLIN+probe Ql (Unsp spec) Not detected Normal NOT DETECTED [facility] Comment on above: Result Comment: This test is not yet approved or cleared by the [place] FDA. When there are no FDA-approved or cleared tests available, and other criteria are met, FDA can make tests available under an emergency access mechanism called an Emergency Use Authorization (EUA). The EUA for this test is supported by the [place] of Health and Human Service's (HHS's) declaration [...] SARS-CoV-2. Performed By: #### C BC #### [facility] [address] [place] [address] Dr. Grace Phillips TYPE AND SCREENon 07-23-2022 TYPE AND SCREEN Negative Normal [facility] Comment on above: Performed By: #### U MICRO, ERUR #### [facility] [address] [place] [address] Dr. Grace Phillips CBC AUTO DIFFon 05-21-2022 BASO # 0.1 103/ul Normal 0.0-0.1 [facility] Comment on above: Performed By: #### C BC #### [facility] [address] [place] [address] Dr. Grace Phillips Basophils/100 WBC (Bld) 1.1 % Normal 0.2-2.0 [facility] Comment on above: Performed By: #### C BC #### [facility] [address] [place] [address] Dr. Grace Phillips EO # 0.0 103/ul Normal 0.0-0.7 [facility] Comment on above: Performed By: #### C BC #### [facility] [address] [place] [address] Dr. Grace Phillips Eosinophils/100 WBC (Bld) 0.5 % Critically low 0.9-7.0 [facility] Comment on above: Performed By: #### C BC #### [facility] [address] [place] [address] Dr. Grace Phillips Erythrocyte distribution width (RBC) [Ratio] 13.2 % Normal 11.0-15.0 [facility] Comment on above: Performed By: #### C BC #### [facility] [address] [place] [address] Dr. Grace Phillips Hematocrit (Bld) [Volume fraction] 40.7 % Normal 36.0-48.0 [facility] Comment on above: Performed By: #### C BC #### [facility] [address] [place] [address] Dr. Grace Phillips Hemoglobin (Bld) [Mass/Vol] 13.2 g/dL Normal 12.0-16.0 [facility] Comment on above: Performed By: #### C BC #### [facility] [address] [place] [address] Dr. Grace Phillips IG # 0.02 10e3/ul Normal 0.00-0.03 [facility] Comment on above: Performed By: #### C BC #### [facility] [address] [place] [address] Dr. Grace Phillips IG % 0.2 % Normal 0.0-0.5 [facility] Comment on above: Performed By: #### C BC #### [facility] [address] [place] [address] Dr. Grace Phillips LYMPH # 2.7 103/ul Normal 1.2-3.8 [facility] Comment on above: Performed By: #### C BC #### [facility] [address] [place] [address] Dr. Grace Phillips Lymphocytes/100 WBC (Bld) 32.4 % Normal 20.5-60.0 [facility] Comment on above: Performed By: #### C BC #### [facility] [address] [place] [address] Dr. Grace Phillips MANUAL DIFF REQ NO Normal [facility] Comment on above: Performed By: #### C BC #### [facility] [address] [address] [address] Grace Phillips MCH (RBC) [Entitic mass] 29.1 pg Normal 26.7-34.0 [facility] Comment on above: Performed By: #### C BC #### [facility] [address] [address] [address] Grace Phillips MCHC (RBC) [Mass/Vol] 32.4 g/dL Normal 29.9-35.2 [facility] Comment on above: Performed By: #### C BC #### [facility] [address] [place] [address] Dr. Grace Phillips MCV (RBC) [Entitic vol] 89.6 fL Normal 81.0-99.0 [facility] Comment on above: Performed By: #### C BC #### [facility] [address] [place] [address] Dr. Grace Phillips MONO # 0.6 103/ul Normal 0.3-0.8 [facility] Comment on above: Performed By: #### C BC #### [facility] [address] [place] [address] Dr. Grace Phillips Monocytes/100 WBC (Bld) 7.3 % Normal 1.7-12.0 [facility] Comment on above: Performed By: #### C BC #### [facility] [address] [place] [address] Dr. Grace Phillips NEUT # 4.9 103/ul Normal 1.4-6.5 [facility] Comment on above: Performed By: #### C BC #### [facility] [address] [place] [address] Dr. Grace Phillips Neutrophils/100 WBC (Bld) 58.5 % Normal 43.0-75.0 [facility] Comment on above: Performed By: #### C BC #### [facility] [address] [place] [address] Dr. Grace Phillips Platelet mean volume (Bld) [Entitic vol] 11.6 fL Normal 9.5-13.5 [facility] Comment on above: Performed By: #### C BC #### [facility] [address] [address] [address] Grace Phillips PLT 284 103/ul Normal 150-450 [facility] Comment on above: Performed By: #### C BC #### [facility] [address] [place] [address] Dr. Grace Phillips RBC 4.54 106/ul Normal 4.20-5.40 [facility] Comment on above: Performed By: #### C BC #### [facility] [address] [place] [address] Dr. Grace Phillips WBC 8.3 103/ul Normal 4.0-11.0 [facility] Comment on above: Performed By: #### C BC #### [facility] [address] [place] [address] Dr. Grace Phillips URon 05-21-2022 , QUAL Negative Normal NEGATIVE [facility] Comment on above: Performed By: #### C BC #### [facility] [address] [place] [address] Dr. Grace Phillips PROF 14(COMP METB)on 022 Albumin [Mass/Vol] 3.9 g/dL Normal 3.4-5.0 [facility] Comment on above: Performed By: #### T SH, CMP #### [facility] [address] [place] [address] Dr. Grace Phillips Albumin/Globulin [Mass ratio] 1.2 {ratio} Normal [facility] Comment on above: Performed By: #### T SH, CMP #### [facility] [address] [place] [address] Dr. Grace Phillips ALP [Catalytic activity/Vol] 56 U/L Normal 46-116 [facility] Comment on above: Performed By: #### T SH, CMP #### [facility] [address] [place] [address] Dr. Grace Phillips ALT [Catalytic activity/Vol] 18 U/L Normal 14-59 [facility] Comment on above: Performed By: #### T SH, CMP #### [facility] [address] [address] [address] Grace Phillips Anion gap [Moles/Vol] 10.9 mmol/L Normal [facility] Comment on above: Performed By: #### T SH, CMP #### [facility] [address] [address] [address] Grace Phillips AST [Catalytic activity/Vol] 12 U/L Critically low 15-37 [facility] Comment on above: Performed By: #### T SH, CMP #### [facility] [address] [address] [address] Grace Phillips Bilirubin [Mass/Vol] 0.2 mg/dL Normal 0.2-1.0 [facility] Comment on above: Performed By: #### T SH, CMP #### [facility] [address] [place] [address] Dr. Grace Phillips Calcium [Mass/Vol] 9.3 mg/dL Normal 8.5-10.1 [facility] Comment on above: Performed By: #### T SH, CMP #### [facility] [address] [place] [address] Dr. Grace Phillips Chloride [Moles/Vol] 104 mmol/L Normal 98-107 [facility] Comment on above: Performed By: #### T SH, CMP #### [facility] [address] [place] [address] Dr. Grace Phillips CO2 [Moles/Vol] 28.0 mmol/L Normal 21.0-32.0 [facility] Comment on above: Performed By: #### T SH, CMP #### [facility] [address] [place] [address] Dr. Grace Phillips Creatinine [Mass/Vol] 0.71 mg/dL Normal 0.55-1.02 [facility] Comment on above: Performed By: #### T SH, CMP #### [facility] [address] [place] [address] Dr. Grace Phillips EGFR-AF [place] >60 Normal >=60 [facility] Comment on above: Performed By: #### T SH, CMP #### [facility] [address] [address] [address] Grace Phillips EGFR-NON AF [place]IZ[place] >60 Normal >=60 [facility] Comment on above: Performed By: #### T SH, CMP #### [facility] [address] [address] [address] Grace Phillips Globulin (S) [Mass/Vol] 3.2 g/dL Normal [facility] Comment on above: Performed By: #### T SH, CMP #### [facility] [address] [address] [address] Grace Phillips Glucose [Mass/Vol] 97 mg/dL Normal 74-106 [facility] Comment on above: Performed By: #### T SH, CMP #### [facility] [address] [place] [address] Dr. Grace Phillips Potassium [Moles/Vol] 3.9 mmol/L Normal 3.5-5.1 [facility] Comment on above: Performed By: #### T SH, CMP #### [facility] [address] [place] [address] Dr. Grace Phillips Protein [Mass/Vol] 7.1 g/dL Normal 6.4-8.2 [facility] Comment on above: Performed By: #### T SH, CMP #### [facility] [address] [place] [address] Dr. Grace Phillips Sodium [Moles/Vol] 139 mmol/L Normal 136-145 [facility] Comment on above: Performed By: #### T SH, CMP #### [facility] [address] [place] [address] Dr. Grace Phillips Urea nitrogen [Mass/Vol] 13.0 mg/dL Normal 7.0-18.0 [facility] Comment on above: Performed By: #### T SH, CMP #### [facility] [address] [place] [address] Dr. Grace Phillips Urea nitrogen/Creatinine [Mass ratio] 18.3 mg/mg Normal [facility] Comment on above: Performed By: #### T SH, CMP #### [facility] [address] [place] [address] Dr. Grace Phillips TSHon 05-21-2022 TSH 1.765 uIU/mL Normal 0.358-3.740 [facility] Comment on above: Performed By: #### T SH, CMP #### [facility] [address] [place] [address] Dr. Grace Phillips PAP ACOG PANEL 2: 21 to 31on 05-07-2022 . . Normal [facility] Comment on above: Performed By: #### C BC #### [facility] [address] [place] [address] Dr. Grace Phillips Age Gdln ACOG Testing [facility] Comment on above: Performed By: #### C BC #### [facility] [address] [place] [address] Dr. Grace Phillips DIAGNOSIS: Comment [facility] Comment on above: Result Comment: NEGA TIVE FOR INTRAEPITHELIAL LESION OR MALIGNANCY. CELLULAR CHANGES ASSOCIATED WITH INFLAMMATION ARE PRESENT. Performed By: #### C BC #### [facility] [address] [place] [address] Dr. Grace Phillips Methodology: Comment [facility] Comment on above: Result Comment: This liquid based ThinPrep(R) pap test was screened with the use of an image guided system. Performed By: #### C BC #### [facility] [address] [place] [address] Dr. Grace Phillips Note: Comment [facility] Comment on above: Result Comment: The Pap smear is a screening test designed to aid in the detection of premalignant and malignant conditions of the uterine cervix. It is not a diagnostic procedure and should not be used as the sole means of detecting cervical cancer. Both false-positive and false-negative reports do occur. . Performed By: #### C BC #### [facility] [address] [place] [address] Dr. Grace Phillips Performed by: Comment [facility] Comment on above: Result Comment: Sveta Arredondo, Placement Specialist (ASCP) Performed By: #### C BC #### [facility] [address] [place] [address] Dr. Grace Phillips Reflex Criteria: Comment Normal [facility] Comment on above: Result Comment: The HPV DNA reflex criteria were not met with this specimen result therefore, no HPV testing was performed. . Performed By: #### C BC #### [facility] [address] [place] [address] Dr. Grace Phillips Specimen adequacy: Comment Normal [facility] Comment on above: Result Comment: Sati sfactory for evaluation. Endocervical and/or squamous metaplastic cells (endocervical component) are present. Performed By: #### C BC #### [facility] [address] [place] [address] Dr. Grace Phillips VAGINITIS/VAGINOSIS DNA PROB David 03-21-2022 Caitlin species Negative Normal Negative [facility] Comment on above: Performed By: #### C BC #### [facility] [address] [place] [address] Dr. Grace Phillips Gardnerella vaginalis Negative Normal Negative [facility] Comment on above: Performed By: #### C BC #### [facility] [address] [place] [address] Dr. Grace Phillips Trichomonas vaginalis Negative Normal Negative [facility] Comment on above: Performed By: #### C BC #### [facility] [address] [place] [address] Dr. Grace Phillips CHLAMYDIA/GONOCOCCUS ERLIN (SW AB/URINE/PAPon 03-20-2022 Chlamydia trachomatis, ERLIN Negative Normal Negative [facility] Comment on above: Performed By: #### C BC #### [facility] [address] [place] [address] Dr. Grace Phillips Neisseria gonorrhoeae, ERLIN Negative Normal Negative [facility] Comment on above: Performed By: #### C BC #### [facility] [address] [place] [address] Dr. Grace Phillips CBC AUTO DIFFon 02-26-2022 BASO # 0.1 103/ul Normal 0.0-0.1 [facility] Comment on above: Performed By: #### C BC #### [facility] [address] [address] [address] Grace Phillips Basophils/100 WBC (Bld) 1.0 % Normal 0.2-2.0 [facility] Comment on above: Performed By: #### C BC #### [facility] [address] [place] [address] Dr. Grace Phillips EO # 0.0 103/ul Normal 0.0-0.7 [facility] Comment on above: Performed By: #### C BC #### [facility] [address] [place] [address] Dr. Grace Phillips Eosinophils/100 WBC (Bld) 0.4 % Critically low 0.9-7.0 [facility] Comment on above: Performed By: #### C BC #### [facility] [address] [place] [address] Dr. Grace Phillips Erythrocyte distribution width (RBC) [Ratio] 13.4 % Normal 11.0-15.0 [facility] Comment on above: Performed By: #### C BC #### [facility] [address] [place] [address] Dr. Grace Phillips Hematocrit (Bld) [Volume fraction] 44.2 % Normal 36.0-48.0 [facility] Comment on above: Performed By: #### C BC #### [facility] [address] [place] [address] Dr. Grace Phillips Hemoglobin (Bld) [Mass/Vol] 14.7 g/dL Normal 12.0-16.0 [facility] Comment on above: Performed By: #### C BC #### [facility] [address] [place] [address] Dr. Grace Phillips IG # 0.03 10e3/ul Normal 0.00-0.03 [facility] Comment on above: Performed By: #### C BC #### [facility] [address] [place] [address] Dr. Grace Phillips IG % 0.4 % Normal 0.0-0.5 [facility] Comment on above: Performed By: #### C BC #### [facility] [address] [place] [address] Dr. Grace Phillips LYMPH # 2.3 103/ul Normal 1.2-3.8 [facility] Comment on above: Performed By: #### C BC #### [facility] [address] [place] [address] Dr. Grace Phillips Lymphocytes/100 WBC (Bld) 27.9 % Normal 20.5-60.0 [facility] Comment on above: Performed By: #### C BC #### [facility] [address] [place] [address] Dr. Grace Phillips MANUAL DIFF REQ NO Normal [facility] Comment on above: Performed By: #### C BC #### [facility] [address] [place] [address] Dr. Grace Phillips MCH (RBC) [Entitic mass] 29.2 pg Normal 26.7-34.0 [facility] Comment on above: Performed By: #### C BC #### [facility] [address] [place] [address] Dr. Grace Phillips MCHC (RBC) [Mass/Vol] 33.3 g/dL Normal 29.9-35.2 [facility] Comment on above: Performed By: #### C BC #### [facility] [address] [place] [address] Dr. Grace Phillips MCV (RBC) [Entitic vol] 87.7 fL Normal 81.0-99.0 [facility] Comment on above: Performed By: #### C BC #### [facility] [address] [place] [address] Dr. Grace Phillips MONO # 0.7 103/ul Normal 0.3-0.8 [facility] Comment on above: Performed By: #### C BC #### [facility] [address] [place] [address] Dr. Grace Phillips Monocytes/100 WBC (Bld) 8.0 % Normal 1.7-12.0 [facility] Comment on above: Performed By: #### C BC #### [facility] [address] [place] [address] Dr. Grace Phillips NEUT # 5.2 103/ul Normal 1.4-6.5 [facility] Comment on above: Performed By: #### C BC #### [facility] [address] [place] [address] Dr. Grace Phillips Neutrophils/100 WBC (Bld) 62.3 % Normal 43.0-75.0 [facility] Comment on above: Performed By: #### C BC #### [facility] [address] [place] [address] Dr. Grace Phillips Platelet mean volume (Bld) [Entitic vol] 11.5 fL Normal 9.5-13.5 [facility] Comment on above: Performed By: #### C BC #### [facility] [address] [place] [address] Dr. Grace Phillips PLT 291 103/ul Normal 150-450 [facility] Comment on above: Performed By: #### C BC #### [facility] [address] [place] [address] Dr. Grace Phillips RBC 5.04 106/ul Normal 4.20-5.40 [facility] Comment on above: Performed By: #### C BC #### [facility] [address] [place] [address] Dr. Grace Phillips WBC 8.3 103/ul Normal 4.0-11.0 [facility] Comment on above: Performed By: #### C BC #### [facility] [address] [place] [address] Dr. Grace Phillips PREG HCG QUALon 02-26-2022 , QUAL Negative Normal NEGATIVE [facility] Comment on above: Performed By: #### U MICRO, ERUR #### [facility] [address] [place] [address] Dr. Grace Phillips Covid-19 PCR (CVDTB)on 02-06 SARS-CoV-2 (COVID-19) RNA ERLIN+probe Ql (Unsp spec) Not detected Normal NOT DETECTED The [facility] Comment on above: Result Comment: This test is not yet approved or cleared by the [place] FDA. When there are no FDA-approved or cleared tests available, and other criteria are met, FDA can make tests available under an emergency access mechanism called an Emergency Use Authorization (EUA). The EUA for this test is supported by the [place] of Health and Human Service's (HHS's) declaration [...] consistent with SARS-CoV-2. Performed By: #### C VDTB #### [facility] [address] [place] [address] Dr. Grace Phillips CHLAMYDIA/GONOCOCCUS ERLIN (SW AB/URINE/PAPon 02-05-2022 Chlamydia trachomatis, ERLIN Negative Normal Negative [facility] Comment on above: Performed By: #### U MICRO, ERUR #### [facility] [address] [place] [address] Dr. Grace Phillips Neisseria gonorrhoeae, ERLIN Negative Normal Negative [facility] Comment on above: Performed By: #### U MICRO, ERUR #### [facility] [address] [place] [address] Dr. Grace Phillips VAGINITIS/VAGINOSIS DNA PROB David 02-04-2022 Caitlin species Negative Normal Negative The [facility] Comment on above: Performed By: #### U MICRO, ERUR #### [facility] [address] [place] [address] Dr. Grace Phillips Gardnerella vaginalis Negative Normal Negative The [facility] Comment on above: Performed By: #### U MICRO, ERUR #### [facility] [address] [place] [address] Dr. Grace Phillips Trichomonas vaginalis Negative Normal Negative [facility] Comment on above: Performed By: #### U MICRO, ERUR #### [facility] [address] [address] [address] Grace Phillips US PELVIS AND TRANSVAGon [...] consider vascular congestion/reflux Electronically authenticated by: KATI MARK Date: 2022-02-03 17:00 Normal [facility] OVA AND PARASITE EXAMINATION on 01-06-2022 Ova + Parasite Exam Final report Normal The [facility] Comment on above: Result Comment: Thes e results were obtained using wet preparation(s) and trichrome stained smear. This test does not include testing for Cryptosporidium parvum, Cyclospora, or Microsporidia. Performed By: #### O VAPE #### [facility] [address] [address] [address] Grace Phillips Result 1 Comment Normal [facility] Comment on above: Result Comment: No o va, cysts, or parasites seen. . One negative specimen does not rule out the possibility of a parasitic infection. Performed By: #### O VAPE #### [facility] [address] [address] [address] Grace Phillips Result Comment: No S almonella or Shigella recovered. Performed By: #### C BC #### [facility] [address] [address] [address] Grace Phillips Result Comment: No C ampylobacter species isolated. STOOL CULTUREon 01-06-2022 Campylobacter Culture Final report Normal [facility] Comment on above: Performed By: #### C BC #### [facility] [address] [place], [place] [address] Dr. Grace Phillips E coli Shiga Toxin EIA Negative Normal Negative [facility] Comment on above: Performed By: #### C BC #### [facility] [address] [place], [place] [address] Dr. Grace Phillips Salmonella/Shigella Screen Final report Normal [facility] Comment on above: Performed By: #### C BC #### [facility] [address] [place], [place] [address] Dr. Grace Phillips C. DIFF PCRon 01-02-2022 C. DIFFICILE PCR Negative Normal NEGATIVE [facility] Comment on above: Performed By: #### C BC #### [facility] [address] [address] [address] Grace Phillips RAD EGD - documentation only do not orderon 05-13-2021 RAD EGD - documentation only do not order [place] Other Coding Summary.on 02-03-2017 Coding Summary. CODING DATE: 02/03/2017 FINAL [facility] DSC STATUS: Home (Routine DC) PAYOR: Medicaid [...] Nat Buckley Date Saved: 02/03/2017 02:36 pm Normal [facility] Vital Signs Date Time Vital Sign Value Performing Clinician Facility 03-20-2025 14:35-0400 Body mass index (BMI) [Ratio] 25.97 kg/m2 Timmy Smiley DO Work Phone: [facility] 03-20-2025 14:35-0400 Body weight 60.33 kg Timmy Baljit DO Work Phone: [facility] 03-20-2025 14:35-0400 Diastolic blood pressure 70 mm[Hg] Timmy Baljit DO Work Phone: [facility] 03-20-2025 14:35-0400 Systolic blood pressure 108 mm[Hg] Timmy Baljit DO Work Phone: [facility] 02-22-2025 14:24-0400 Body height 152.4 cm Dilia Rice DO Work Phone: [facility] 02-22-2025 14:24-0400 Body mass index (BMI) [Ratio] 25.6 kg/m2 Dilia Rice DO Work Phone: [facility] 02-22-2025 14:24-0400 Body temperature 98.6 [degF] Dilia Rice DO Work Phone: [facility] 02-22-2025 14:24-0400 Body weight 59.59 kg Dilia Rice DO Work Phone: [facility] 02-22-2025 14:24-0400 Diastolic blood pressure 87 mm[Hg] Dilia Rice DO Work Phone: [facility] 02-22-2025 14:24-0400 Heart rate 83 /min Dilia Rice DO Work Phone: [facility] 02-22-2025 14:24-0400 Respiratory rate 18 /min Dilia Rice DO Work Phone: [facility] 02-22-2025 14:24-0400 SaO2% (BldA) [Mass fraction] 97 % Dilia Rice DO Work Phone: [facility] 02-22-2025 14:24-0400 Systolic blood pressure 127 mm[Hg] Dilia Rice DO Work Phone: [facility] 02-19-2025 13:01-0400 Body height 152.4 cm Cristin Chandra MD Work Phone: [facility] 02-19-2025 13:01-0400 Body mass index (BMI) [Ratio] 25.39 kg/m2 Cristin Chandra MD Work Phone: [facility] 02-19-2025 13:01-0400 Body weight 58.97 kg Cristin Chandra MD Work Phone: [facility] 02-19-2025 13:01-0400 Diastolic blood pressure 84 mm[Hg] Cristin Chandra MD Work Phone: [facility] 02-19-2025 13:01-0400 Heart rate 102 /min Cristin Chandra MD Work Phone: [facility] 02-19-2025 13:01-0400 Respiratory rate 20 /min Cristin Chandra MD Work Phone: [facility] 02-19-2025 13:01-0400 SaO2% (BldA) [Mass fraction] 96 % Cristin Chandra MD Work Phone: [facility] 02-19-2025 13:01-0400 Systolic blood pressure 122 mm[Hg] Cristin Chandra MD Work Phone: [facility] 02-15-2025 14:39-0400 Body height 152.4 cm Tee Blancas MD Work Phone: [facility] 02-15-2025 14:39-0400 Body mass index (BMI) [Ratio] 24.41 kg/m2 Tee Blancas MD Work Phone: [facility] 02-15-2025 14:39-0400 Body weight 56.7 kg Tee Blancas MD Work Phone: [facility] 02-15-2025 14:39-0400 Diastolic blood pressure 98 mm[Hg] Tee Blancas MD Work Phone: [facility] 02-15-2025 14:39-0400 Heart rate 94 /min Tee Blancas MD Work Phone: [facility] 02-15-2025 14:39-0400 Systolic blood pressure 128 mm[Hg] Tee Blancas MD Work Phone: [facility] 02-09-2025 15:35-0400 Diastolic blood pressure 99 mm[Hg] Siomara Bolaños MD Work Phone: [facility] 02-09-2025 15:35-0400 Systolic blood pressure 152 mm[Hg] Siomara Bolaños MD Work Phone: [facility] 02-09-2025 11:40-0400 Body temperature 97.5 [degF] Siomara Bolaños MD Work Phone: [facility] 02-09-2025 11:40-0400 Heart rate 87 /min Siomara Bolaños MD Work Phone: [facility] 02-09-2025 11:40-0400 Respiratory rate 18 /min Siomara Bolaños MD Work Phone: [facility] 02-09-2025 11:40-0400 SaO2% (BldA) [Mass fraction] 98 % Siomara Bolaños MD Work Phone: [facility] 02-08-2025 22:30-0400 Body height 152.4 cm Siomara Bolaños MD Work Phone: [facility] 02-08-2025 22:30-0400 Body mass index (BMI) [Ratio] 25.35 kg/m2 Siomara Bolaños MD Work Phone: [facility] 02-08-2025 22:30-0400 Body weight 58.88 kg Siomara Bolaños MD Work Phone: [facility] 01-16-2025 14:15-0400 Body mass index (BMI) [Ratio] 24.18 kg/m2 Timmy Smiley DO Work Phone: [facility] 01-16-2025 14:15-0400 Body weight 56.16 kg Timmy Baljit DO Work Phone: [facility] 01-16-2025 14:15-0400 Diastolic blood pressure 60 mm[Hg] Timmy Baljit DO Work Phone: [facility] 01-16-2025 14:15-0400 Systolic blood pressure 120 mm[Hg] Timmy Baljit DO Work Phone: [facility] 12-14-2024 14:31-0400 Body height 152.4 cm Tee Blancas MD Work Phone: [facility] 12-14-2024 14:31-0400 Body mass index (BMI) [Ratio] 28.12 kg/m2 Tee Blancas MD Work Phone: [facility] 12-14-2024 14:31-0400 Body weight 65.32 kg Tee Blancas MD Work Phone: [facility] 12-14-2024 14:31-0400 Diastolic blood pressure 78 mm[Hg] Tee Blancas MD Work Phone: [facility] 12-14-2024 14:31-0400 Heart rate 93 /min Tee Blancas MD Work Phone: [facility] 12-14-2024 14:31-0400 SaO2% (BldA) [Mass fraction] 99 % Tee Blancas MD Work Phone: [facility] 12-14-2024 14:31-0400 Systolic blood pressure 124 mm[Hg] Tee Blancas MD Work Phone: [facility] 12-11-2024 23:59-0400 SaO2% (BldA) [Mass fraction] 94 % [facility] Comment on above: Performed By: #### ABG ####[facility] (TT)[facility] [place] [address] [facility] 12-06-2024 04:08-0400 SaO2% (BldA) [Mass fraction] 94 % TEE BLANCAS [facility] Comment on above: Performed By: #### PTT #### [facility] (TT) [address] [place] [address] [facility] 12-04-2024 09:14-0400 Respiratory rate 20 /min Dilia Rice DO Work Phone: [facility] 12-04-2024 09:14-0400 SaO2% (BldA) [Mass fraction] 98 % Dilia Rice DO Work Phone: [facility] 12-04-2024 09:13-0400 Diastolic blood pressure 58 mm[Hg] Dilia Rice DO Work Phone: [facility] 12-04-2024 09:13-0400 Heart rate 50 /min Dilia Rice DO Work Phone: [facility] 12-04-2024 09:13-0400 Systolic blood pressure 106 mm[Hg] Dilia Rice DO Work Phone: [facility] 12-04-2024 08:48-0400 Body height 152.4 cm Dilia Rice DO Work Phone: [facility] 12-04-2024 08:48-0400 Body weight 63.8 kg Dilia Rice DO Work Phone: [facility] 12-04-2024 08:28-0400 Body temperature 97.5 [degF] Dilia Rice DO Work Phone: [facility] 11-23-2024 13:42-0400 Body height 152.4 cm Minoo SALCEDO Work Phone: [facility] 11-23-2024 13:42-0400 Body mass index (BMI) [Ratio] 27.07 kg/m2 Minoo SALCEDO Work Phone: [facility] 11-23-2024 13:42-0400 Body temperature 98.8 [degF] Minoo Hemmer PA Work Phone: [facility] 11-23-2024 13:42-0400 Body weight 62.87 kg Miono Hemmer PA Work Phone: [facility] 11-23-2024 13:42-0400 Diastolic blood pressure 62 mm[Hg] Minoo Hemmer PA Work Phone: [facility] 11-23-2024 13:42-0400 Heart rate 62 /min Minoo Hemmer PA Work Phone: [facility] 11-23-2024 13:42-0400 Respiratory rate 16 /min Minoo Hemmer PA Work Phone: [facility] 11-23-2024 13:42-0400 SaO2% (BldA) [Mass fraction] 98 % Minoo Hemmer PA Work Phone: [facility] 11-23-2024 13:42-0400 Systolic blood pressure 94 mm[Hg] Minoo Hemmer PA Work Phone: [facility] 11-13-2024 14:31-0400 Body mass index (BMI) [Ratio] 25.29 kg/m2 Timmy Baljit DO Work Phone: [facility] 11-13-2024 14:31-0400 Body weight 58.74 kg Timmy Baljit DO Work Phone: [facility] 11-13-2024 14:31-0400 Diastolic blood pressure 70 mm[Hg] Timmy Baljit DO Work Phone: [facility] 11-13-2024 14:31-0400 Systolic blood pressure 110 mm[Hg] Timmy Baljit DO Work Phone: [facility] 11-01-2024 16:08-0400 Body mass index (BMI) [Ratio] 26.37 kg/m2 Timmy Baljit DO Work Phone: [facility] 11-01-2024 16:08-0400 Body weight 61.24 kg Timmy Baljit DO Work Phone: [facility] 11-01-2024 16:08-0400 Diastolic blood pressure 68 mm[Hg] Timmy Baljit DO Work Phone: [facility] 11-01-2024 16:08-0400 Systolic blood pressure 110 mm[Hg] Timmy Baljit DO Work Phone: [facility] 10-09-2024 09:35-0500 Body height 152.4 cm Tee Blancas MD Work Phone: [facility] 10-09-2024 09:35-0500 Body mass index (BMI) [Ratio] 26.76 kg/m2 Tee Blancas MD Work Phone: [facility] 10-09-2024 09:35-0500 Body weight 62.14 kg Tee Blancas MD Work Phone: [facility] 10-09-2024 09:35-0500 Diastolic blood pressure 52 mm[Hg] Tee Blancas MD Work Phone: [facility] 10-09-2024 09:35-0500 Heart rate 73 /min Tee Blancas MD Work Phone: [facility] 10-09-2024 09:35-0500 SaO2% (BldA) [Mass fraction] 99 % Tee Blancas MD Work Phone: [facility] 10-09-2024 09:35-0500 Systolic blood pressure 98 mm[Hg] Tee Blancas MD Work Phone: [facility] 08-31-2024 11:06-0500 Body height 152.4 cm Minoo SALCEDO Work Phone: [facility] 08-31-2024 11:06-0500 Body mass index (BMI) [Ratio] 26.56 kg/m2 Minoo Barbour PA Work Phone: [facility] 08-31-2024 11:06-0500 Body weight 61.69 kg Minoo Barbour PA Work Phone: [facility] 08-31-2024 11:06-0500 Diastolic blood pressure 62 mm[Hg] Minoo Barbour PA Work Phone: [facility] 08-31-2024 11:06-0500 Heart rate 92 /min Minoo Hemmer PA Work Phone: [facility] 08-31-2024 11:06-0500 Respiratory rate 16 /min Minoo Hemmer PA Work Phone: [facility] 08-31-2024 11:06-0500 SaO2% (BldA) [Mass fraction] 97 % Minoo Hemmer PA Work Phone: [facility] 08-31-2024 11:06-0500 Systolic blood pressure 98 mm[Hg] Minoo Hemmer PA Work Phone: [facility] 08-14-2024 15:24-0500 Body mass index (BMI) [Ratio] 28.01 kg/m2 Timmy Baljit DO Work Phone: [facility] 08-14-2024 15:24-0500 Body weight 65.05 kg Timmy Baljit DO Work Phone: [facility] 08-14-2024 15:24-0500 Diastolic blood pressure 58 mm[Hg] Timmy Baljit DO Work Phone: [facility] 08-14-2024 15:24-0500 Systolic blood pressure 100 mm[Hg] Timmy Baljit DO Work Phone: [facility] 05-22-2024 15:05-0400 Body height 152.4 cm Tee Blancas MD Work Phone: [facility] 05-22-2024 15:05-0400 Body mass index (BMI) [Ratio] 28.12 kg/m2 Tee Blancas MD Work Phone: [facility] 05-22-2024 15:05-0400 Body weight 65.32 kg Tee Blancas MD Work Phone: [facility] 05-22-2024 15:05-0400 Diastolic blood pressure 68 mm[Hg] Tee Blancas MD Work Phone: [facility] 05-22-2024 15:05-0400 Heart rate 81 /min Tee Blancas MD Work Phone: [facility] 05-22-2024 15:05-0400 SaO2% (BldA) [Mass fraction] 98 % Tee Blancas MD Work Phone: [facility] 05-22-2024 15:05-0400 Systolic blood pressure 92 mm[Hg] Tee Blancas MD Work Phone: [facility] 10-13-2023 11:03-0500 Body height 152.4 cm Caty Tillman MD Work Phone: [facility] 10-13-2023 11:03-0500 Body mass index (BMI) [Ratio] 27.13 kg/m2 Caty Tillman MD Work Phone: [facility] 10-13-2023 11:03-0500 Body weight 63 kg Caty Tillman MD Work Phone: [facility] 10-13-2023 11:03-0500 Diastolic blood pressure 51 mm[Hg] Caty Tillman MD Work Phone: [facility] 10-13-2023 11:03-0500 Heart rate 72 /min Caty Tillman MD Work Phone: [facility] 10-13-2023 11:03-0500 Systolic blood pressure 101 mm[Hg] Caty Tillman MD Work Phone: [facility] 09-06-2023 15:45-0500 Body mass index (BMI) [Ratio] 27.54 kg/m2 Timmy Baljit DO Work Phone: [facility] 09-06-2023 15:45-0500 Body weight 63.96 kg Timmy Baljit DO Work Phone: [facility] 09-06-2023 15:45-0500 Diastolic blood pressure 70 mm[Hg] Timmy Baljit DO Work Phone: [facility] 09-06-2023 15:45-0500 Systolic blood pressure 120 mm[Hg] Timmy Baljit DO Work Phone: [facility] 12-04-2022 10:54-0400 Body height 152.4 cm Referring Provider Unknown YU-Wijgstbycjlhdf-[place] Work Phone: 12-04-2022 10:54-0400 Body mass index (BMI) [Ratio] 29.15 kg/m2 Referring Provider Unknown MM-Uhvnkfbhkmcome-[place] Work Phone: 12-04-2022 10:54-0400 Body surface area Derived from formula 1.65 m2 Referring Provider Unknown EK-Viepzkrqnnyznb-[place] Work Phone: 12-04-2022 10:54-0400 Body temperature 97.4 [degF] Referring Provider Unknown HF-Bpifzrbffrphiz-Qg [place] Work Phone: 12-04-2022 10:54-0400 Body weight 67.7 kg Referring Provider Unknown BS-Fijeiwmoiyeopl-Pn [place] Work Phone: 12-04-2022 10:54-0400 0 1 Referring Provider Unknown MD-Gxqqqtvwyqhkys-Di [place] Work Phone: Comment on above: [facility] 05-06-2021 15:45-0400 Body height 152.4 cm Kati Gupta Other [place] [place] Other 05-06-2021 15:45-0400 Body mass index (BMI) [Ratio] 29.55 kg/m2 Kati Gupta Other [facility] Other 05-06-2021 15:45-0400 Body weight 68.63 kg Kati Gupta Other [place] [place] Other Encounters Encounter Date Encounter Type Care Provider Facility Start: 03-20-2025 End: 03-20-2025 ambulatory TIMMY SMILEY Not Available Start: 03-20-2025 End: 03-20-2025 Office outpatient visit 15 minutes Timmy Baljit DO Work Phone: [facility] Comment on above: Hormone disorder; Vaginal pain Start: 03-20-2025 End: 03-20-2025 Bamboo flowsheet Timmy Baljit DO Work Phone: [facility] Start: 03-20-2025 End: 03-20-2025 Bamboo flowsheet Timmy Baljit DO Work Phone: [facility] Start: 03-20-2025 End: 03-20-2025 ambulatory [facility] Start: 03-19-2025 End: 03-19-2025 Refill Tee Blancas MD Work Phone: [facility] Comment on above: Anxiety Start: 03-12-2025 End: 03-12-2025 Orders Only Cristin Chandra MD Work Phone: [facility] Comment on above: Primary hypertension (Primary Dx) Start: 03-08-2025 End: 03-13-2025 Telephone encounter Cristin Chandra MD Work Phone: [facility] Comment on above: Results Start: 03-05-2025 End: 03-05-2025 Refill Delvis Chan [employer] EDUCATOR-[employer] Work Phone: [facility] Start: 02-26-2025 End: 02-26-2025 Telephone encounter Kate Lyon MA [facility] Start: 02-26-2025 ambulatory TEE BLANCAS [facility] Start: 02-23-2025 ambulatory KVNG REYNOSO [facility] Start: 02-22-2025 End: 02-22-2025 ambulatory Dilia Cleary DO Work Phone: [facility] Work Phone: Start: 02-22-2025 End: 02-22-2025 Patient encounter procedure Kvng Reynoso MD [facility] Work Phone: Start: 02-22-2025 End: 02-22-2025 Telephone encounter Gonzales Still LPC [facility] Comment on above: Appointment (Clinici an left vm about telehealth appt.) Start: 02-19-2025 End: 02-19-2025 Office outpatient new 45 minutes Cristin Chandra MD Work Phone: [facility] Comment on above: Primary hypertension (Primary Dx); Hypokalemia Start: 02-19-2025 End: 02-19-2025 ambulatory CRISTIN CHANDRA Not Available Start: 02-15-2025 End: 02-15-2025 ambulatory TEE BLANCAS Not Available Start: 02-15-2025 End: 02-15-2025 Transitional care manage srvc 7 day discharge Tee Blancas MD Work Phone: [facility] Comment on above: Slow transit constip ation (Primary Dx); Hypokalemia; Primary hypertension ; Unintentional weight loss; Renal atrophy, right Start: 02-15-2025 End: 02-15-2025 Bamboo flowsheet Tee Blancas MD Work Phone: [facility] Start: 02-15-2025 End: 02-15-2025 Bamboo flowsheet Tee Blancas MD Work Phone: [facility] Start: 02-14-2025 End: 02-14-2025 Clinical Support Gonzales Still LPC [facility] Comment on above: PTSD (post-traumatic stress disorder) ; Generalized anxiety disorder with panic attacks Start: 02-13-2025 End: 02-13-2025 Emergency department patient visit TEE BLANCAS [facility] Start: 02-12-2025 End: 02-12-2025 Online digital e/m svc est pt <7 d 5-10 minutes Timmy Smiley DO Work Phone: [facility] Comment on above: Hormone disorder (Pr imary Dx); Vaginal pain Start: 02-08-2025 End: 02-09-2025 ambulatory [facility] Start: 02-08-2025 End: 02-09-2025 Evaluation and management of inpatient Aleja Munoz DO Work Phone: [facility] Comment on above: Hypokalemia (Primary Dx); Uncontrolled hypertension Start: 02-07-2025 End: 02-07-2025 Clinical Support Gonzales Still [facility] Comment on above: PTSD (post-traumatic stress disorder) ; Generalized anxiety disorder with panic attacks Start: 01-23-2025 End: 01-29-2025 Clinisync Result Encounter Generic External Data Provider [facility] External Department Unsolicited Start: 01-23-2025 End: 01-29-2025 Clinis[facility] Result Encounter Generic External Data Provider [facility] External Department Unsolicited Start: 01-22-2025 End: 01-22-2025 ambulatory [facility] Start: 01-18-2025 End: 01-18-2025 Emergency department patient visit [facility] Start: 01-17-2025 End: 01-17-2025 [facility] Result Encounter Generic External Data Provider [facility] External Department Unsolicited Start: 01-17-2025 End: 01-17-2025 [facility] Result Encounter Generic External Data Provider [facility] External Department Unsolicited Start: 01-16-2025 End: 01-16-2025 Office outpatient visit 15 minutes Timmy Baljit DO Work Phone: [facility] Comment on above: Hormone disorder Start: 01-16-2025 End: 01-16-2025 Bamboo flowsheet Timmy Baljit DO Work Phone: [facility] Start: 01-16-2025 End: 01-16-2025 Bamboo flowsheet Timmy Baljit DO Work Phone: [facility] Start: 01-16-2025 End: 01-16-2025 ambulatory TIMMY BALJIT Not Available Start: 01-11-2025 End: 01-11-2025 Refill Ailyn Quinn MA [facility] Comment on above: Anxiety medication dosing/di rections Start: 01-08-2025 End: 01-08-2025 Telephone encounter Cristina Huang CMA [facility] Start: 01-08-2025 ambulatory CAROLE FRANKLIN [facility] Start: 01-03-2025 End: 01-03-2025 Emergency department patient visit Ulisses Serrano [facility] Start: 01-02-2025 End: 01-02-2025 Chart abstracting Wolf Martell MD Work Phone: [facility] Start: 12-28-2024 End: 12-28-2024 ambulatory TEE BLANCAS [...] sternum with routine healing, subsequent encounter Start: 12-09-2024 End: 12-09-2024 Telephone encounter Mahsa Reagan MD Work Phone: [facility] Start: 12-04-2024 End: 12-04-2024 ambulatory UNKNOWN PROVIDER Facility:[facility] Start: 12-04-2024 ambulatory [facility] Start: 12-04-2024 Emergency department patient visit [facility] Start: 12-04-2024 ambulatory [facility] Start: 12-04-2024 End: 12-12-2024 Evaluation and management of inpatient [facility] Start: 12-04-2024 End: 12-04-2024 Emergency department patient visit Dilia Evin LIND Work Phone: [facility] Work Phone: Start: 11-29-2024 End: 11-29-2024 Clinisync Result Encounter [...] Manic episode, unspecified; Bipolar II disorder (CMS/HCC) Anxiety Start: 11-23-2024 End: 11-23-2024 Office outpatient visit 15 minutes Minoo SALCEDO Work Phone: [facility] Comment on above: Cellulitis, face (Pr imary Dx) Start: 11-13-2024 End: 11-13-2024 ambulatory TIMMY BALJIT Not Available Start: 11-13-2024 End: 11-13-2024 Office outpatient visit 15 minutes Timmy Baljit DO Work Phone: [facility] Comment on above: Pre-op examination; Vaginal irritation; Vaginal pain; History of episiotomy Start: 11-13-2024 End: 11-13-2024 Preprocedural examination done Timmy Baljit DO Work Phone: [facility] Start: 11-13-2024 End: 11-13-2024 Bamboo flowsheet Timmy Baljit DO Work Phone: [facility] Start: 11-13-2024 End: 11-13-2024 Bamboo flowsheet Timmy Baljit DO Work Phone: [facility] Start: 11-01-2024 End: 11-01-2024 ambulatory TIMMY BALJIT Not Available Start: 11-01-2024 End: 11-01-2024 Office outpatient visit 15 minutes Timmy Baljit DO Work Phone: [facility] Comment on above: Vaginal irritation; Vaginal pain; H/O: hysterectomy; History of episiotomy Start: 11-01-2024 End: 11-01-2024 Bamboo flowsheet Timmy Baljit DO Work Phone: [facility] Start: 11-01-2024 End: 11-01-2024 Bamboo flowsheet Timmy Baljit DO Work Phone: [facility] Start: 10-26-2024 End: 10-26-2024 Refill Michelle Crowell MA [facility] Comment on above: Generalized anxiety disorder ([facility]/HCC) Start: 10-23-2024 End: 10-23-2024 ambulatory RHANDA KARINA-MORIN Not Available Start: 10-17-2024 End: 10-17-2024 Telemedicine consultation with patient Rhanda Karina-Morin [facility] Comment on above: PTSD (post-traumatic stress disorder) (CMS/HCC); Generalized anxiety disorder with panic attacks (CMS/HCC); Grief counseling; History of non-suicidal self-harm Start: 10-17-2024 End: 10-17-2024 ambulatory RHANDA KARINA-MORIN Not Available Start: 10-16-2024 End: 10-16-2024 Refill Tee Blancas MD Work Phone: [facility] Comment on above: Fibromyalgia Start: 10-09-2024 End: 10-09-2024 ambulatory RHANDA KARINA-MORIN Not Available Start: 10-09-2024 End: 10-09-2024 Telemedicine consultation with patient Gonzales MetzMorin [facility] Comment on above: PTSD (post-traumatic stress disorder) [...] 09-12-2024 End: 09-12-2024 Clinical Support Gonzales Still [facility] Comment on above: Grief reaction (CMS/ HCC); [...] (CMS/HCC) Start: 08-31-2024 End: 08-31-2024 ambulatory MINOO BARBOUR Not Available Start: 08-16-2024 End: 08-17-2024 Telephone encounter Tee Blancas MD Work Phone: [facility] Start: 08-14-2024 End: 08-14-2024 Patient encounter procedure Timmy Baljit DO Work Phone: [facility] Work Phone: Start: 08-14-2024 End: 08-14-2024 Periodic preventive med est patient 18-39 yrs Timmy Baljit DO Work Phone: [facility] Comment on above: Well woman exam with routine gynecological exam Start: 08-14-2024 End: 08-14-2024 ambulatory TIMMY BALJIT Not Available Start: 08-14-2024 End: 08-14-2024 Bamboo flowsheet Timym Baljit DO Work Phone: [facility] [...] Start: 05-22-2024 End: 05-22-2024 Refill Tiffany Neri KYAW [facility] Comment on above: Generalized anxiety disorder (CMS/HCC) Start: 04-06-2024 End: 04-07-2024 Emergency department patient visit SPENSER BARROSO [facility] Start: 04-01-2024 End: 04-01-2024 Emergency department patient visit SAVANNAH Alberto BLANCAS [facility] Start: 02-04-2024 End: 02-04-2024 ambulatory PHYSICIAN NO [facility] Work Phone: Start: 02-04-2024 End: 02-04-2024 Departed Referred PHYSICIAN [facility] Start: 10-29-2023 Telephone encounter Caty melara MD Work Phone: [facility] Start: 10-14-2023 Telephone encounter Sarah Vinson RN [facility] [place] Start: 10-13-2023 End: 10-13-2023 Office outpatient new 60 minutes Caty Tillman MD Work Phone: [facility] [place] Comment on above: Easy bruising (Prima ry Dx); History of uterine bleeding Start: 09-06-2023 End: 09-06-2023 Postop follow up visit related to original px Timmy Baljit Work Phone: [facility] Comment on above: Incisional irritatio n, initial encounter; S/P laparoscopic surgery; Wound infection following procedure; Yeast infection Start: 01-18-2023 ambulatory MATEO INDER EKTA Facility:[id number] Start: 01-01-2023 ambulatory MATEO INDER EKTA Facility:[id number] Start: 12-24-2022 End: 12-24-2022 ambulatory MATEO INDER EKTA Facility:[facility] Start: 12-24-2022 End: 12-24-2022 Subsequent hospital visit by physician Mateo Dash MD Work Phone: [facility] Comment on above: Deviated nasal septu m; Hypertrophy of nasal turbinates; Other specified disorders of nose and nasal sinuses; Unspecified asthma, uncomplicated; Anxiety disorder, unspecified; Depression, unspecified; Gastro-esophageal reflux disease without esophagitis; Nicotine dependence, unspecified, uncomplicated Start: 12-04-2022 Office consultation new/estab patient 80 min Referring Provider Unknown TT-Blrifglwzdqsdy-Qscyzrx e Work Phone: Start: 12-04-2022 ambulatory PCP UNKNOWN Facility:[id number] Start: 11-27-2022 End: 11-28-[address] TEE BLANCAS Facility:[facility]1 Start: 10-09-2022 End: 10-09-2022 ambulatory NEEMA CEDILLO Facility:[facility] Start: 08-03-2022 End: 08-03-[address] SPENSER YANG Facility:[facility] Start: 08-01-2022 End: 08-02-2022 ambulatory RIVER CHARLES . Facility:[facility] Start: 07-27-2022 End: 07-27-[address] TIMMY SMILEY . Facility:[facility]1 Start: 07-27-2022 Encounter for preprocedural laboratory examination DR TIMMY SMILEY . [facility] Start: 07-23-2022 End: 07-24-[address] TIMMY SMILEY . Facility:[facility]1 Start: 07-23-2022 End: 07-24-2022 Encounter for preprocedural laboratory examination DR TIMMY SMILEY . Facility:[facility] Start: 07-18-2022 Encounter for preprocedural cardiovascular examination DR TIMMY SMILEY . [facility] Start: 07-14-2022 End: 07-15-[address] TIMMY SMILEY . Facility:[facility] Start: 07-14-2022 End: 07-15-2022 Encounter for preprocedural cardiovascular examination DR TIMMY SMILEY . Facility:[facility]1 Start: 05-21-2022 End: 05-22-[address] TEE BLANCAS Facility:[facility]1 Start: 04-29-2022 End: 04-29-2022 ambulatory GARCIA BRICENO Facility:[facility]1 Start: 04-15-2022 End: 04-15-2022 ambulatory [facility] Other [place] Other Start: 04-15-2022 Telephone encounter [facility] Start: 04-01-2022 ambulatory GARCIA BRICENO Facilit y:[facility]1 Start: 03-18-2022 End: 03-18-2022 ambulatory GARCIA BRICENO Facility:[facility] Start: 02-26-2022 End: 02-26-2022 ambulatory GARCIA BRICENO Facility:[facility] Start: 02-23-2022 End: 02-24-2022 ambulatory GARCIA BRICENO Facility:[facility] Start: 02-18-2022 Encounter for other preprocedural examination DR TIMMY SMILEY . [facility] Start: 02-13-2022 End: 02-14-2022 ambulatory GARCIA BRICENO Facility:[facility] Start: 02-13-2022 End: 02-14-2022 Encounter for other preprocedural examination GARCIA MATILDA BRICENO Facility:[facility]1 Start: 02-02-2022 End: 02-03-[address] TIMMY SMILEY . Facility:[facility] Start: 01-02-2022 End: 01-03-2022 ambulatory KATI GUPTA JR Facility:[facility]1 Start: 01-01-2022 End: 01-01-2022 ambulatory Kati Gupta Other [place] Other Start: 01-01-2022 Telephone encounter Kati Gupta [facility] Start: 12-16-2021 End: 12-16-2021 ambulatory Kati Gupta Other [place] Other Start: 12-16-2021 Telephone encounter Kati Gupta [facility] Start: 05-21-2021 Telephone encounter Kati Gupta [facility] Start: 05-06-2021 Office outpatient vi sit 25 minutes Kati Gupta [facility] Procedures Date Procedure Procedure Detail Performing Clinician Start: 02-09-2025 Potassium serum plasma/whole blood Siomara Bolaños MD Work Phone: Start: 02-09-2025 Potassium serum plasma/whole blood Jazmin Hernandezight [employer] SKILLS EDUCATOR-[employer] PRESSURE FIRER Work Phone: Start: 02-09-2025 EXTRA TUBES Siomara Bolaños MD Work Phone: Start: 02-09-2025 EXTRA TUBES SST TOP Blayneq dae Bolaños MD Work Phone: Start: 02-09-2025 Comprehensive metabo lic panel Jazmin Amin [employer] SKILLS EDUCATOR-[employer] PRESSURE FIRER Work Phone: Start: 02-08-2025 Assay of troponin quantitative Aleja Munoz DO Work Phone: Start: 02-08-2025 End: 02-08-2025 Urine test visual color cmprsn meths Aleja Munoz DO Work Phone: Start: 02-08-2025 Drug tst prsmv instr mnt chem analyzers pr date Aleja Munoz DO Work Phone: Start: 02-08-2025 ER EXTRA URINE Aleja Munoz DO Work Phone: Start: 02-08-2025 ER EXTRA URINE CULTURE Aleja Munoz DO Work Phone: Start: 02-08-2025 Comprehensive metabo lic panel Aleja Munoz DO Work Phone: Start: 02-08-2025 Ecg routine ecg w/le ast 12 lds trcg only w/o i&r Aleja Munoz DO Work Phone: Start: 02-08-2025 Ct head/brain w/o contrast material Aleja Munoz DO Work Phone: Start: 02-08-2025 Radiologic exam ches t single view Aleja Munoz DO Work Phone: Start: 02-08-2025 Adult depression screening assessment Kate Lyon MA Start: 01-23-2025 ALDOSTERONE LCMS, SERUM Generic External Data Provider Start: 01-23-2025 UH RENIN,PLASMA Generic External Data Provider Start: 01-17-2025 MLR HEMOGLOBIN A1C Gene pedro External Data Provider Start: 12-04-2024 Antibody screen Dilia Cleary Comment on above: Result Comment: PERF ORMED BY: [facility] [address] [place] [address] PATHOLOGIST PRINT FINISHER MALOU CALLE M.D. Start: 12-04-2024 Antibody screen TEE NEGRO Comment on above: Performed By: #### T [place] ####[facility] (HL)[address] [place] [address] VIR Start: 12-04-2024 Adult depression screening assessment Mahsa Reagan Jr., MD Work Phone: Start: 12-04-2024 Computed tomography of abdomen and pelvis with contrast Dilia Rice DO Work Phone: Start: 12-04-2024 CT cervical spine without contrast Dilia Rice DO Work Phone: Start: 12-04-2024 CT of chest Dilia Pedro e DO Work Phone: Start: 12-04-2024 CT of head without contrast Dilia Rice DO Work Phone: Start: 11-29-2024 XR CHEST 2V Generic Ex ternal Data Provider Start: 11-01-2024 Urnls dip stick/tabl et rgnt non-auto w/o micrscp Timmy Baljit DO Work Phone: Start: 08-14-2024 IGP,APTIMA HPV,AGE GDLN Timmy Baljit DO Work Phone: Start: 10-13-2023 Adult depression screening assessment Sarah Vinson RN Start: 01-19-2023 H/O: hysterectomy History of hystere ctomy Timmy Baljit DO Work Phone: H/O: hysterectomy H/O: hysterectomy Timmy Baljit DO Work Phone: Operation on nose Referring Provider Unknown Tonsillectomy Referring Prov ider Unknown Plan of Treatment Date Care Activity Detail Author Start: 12-03-2047 Zoster Vaccines (1 of 2) Zoster Vaccines (1 of 2) [facility] Start: 02-13-2026 Adult BMI Screening Adult BMI Screening [facility] Start: 02-13-2026 Tobacco Screening Tobacco Screening [facility] Start: 02-08-2026 Depression Screening Depression Screening [facility] Start: 12-07-2025 Adult BMI Screening Adult BMI Screening [facility] Start: 12-04-2025 Depression Screening Depression Screening [facility] Start: 12-04-2025 Tobacco Screening Tobacco Screening [facility] Start: 05-21-2025 End: 05-21-2025 Patient encounter procedure [facility] Start: 05-09-2025 Influenza vaccination [facility] Comment on above: Postponed from 04/09/2024 (Other Patient Reasons) Postponed from 04/09 (Other Patient Reasons) Start: 04-25-2025 End: 04-25-2025 Patient encounter procedure 04/25/2025 2:10 PM EDT Office Visit [facility] [address] [place] [address] Timmy Smiley, [address] [place] [address] [facility] Start: 04-09-2025 Influenza vaccination [facility] Start: 03-20-2025 End: 03-20-2025 Patient encounter procedure 03/20/2025 2:20 PM EDT Office Visit [facility] [address] [facility] [place] [address] Timmy Smiley, [address] [place] [address] [facility] Start: 03-12-2025 End: 03-12-2026 Cortisol, urine, 24 hour Cortisol, urine, 24 hour Lab Routine Primary hypertension Expected: 03/12/2025 (Approximate), Expires: 03/12/2026 [facility] Work Phone: Comment on above: Expected: 03/12/2025 (Approximate), Expi res: 03/12/2026 Start: 03-12-2025 End: 03-12-2026 Creatinine, urine, 24 hour Creatinine, urine, 24 hour Lab Routine Primary hypertension Expected: 03/12/2025 (Approximate), Expires: 03/12/2026 [facility] Comment on above: Expected: 03/12/2025 (Approximate), Expi res: 03/12/2026 Start: 02-26-2025 End: 02-26-2025 Patient encounter procedure 02/26/2025 3:30 PM EDT Office Visit [facility] [address] [place] [address] Carole Franklin, DO [address] [place] [address] [facility] Start: 02-22-2025 End: 02-22-2025 Telemedicine consultation with patient 02/22/2025 12:00 PM EDT Telemedicine [facility] [address] [place] [address] Gonzales Still LPC [facility] Start: 02-19-2025 End: 02-19-2026 ALDOSTERONE/PLASMA RENIN ACTIVITY RATIO, LC/MS/MS ALDOSTERONE/PLASMA RENIN ACTIVITY RATIO, LC/MS/MS Lab Routine Primary hypertension Expected: 02/19/2025 (Approximate), Expires: 02/19/2026 [facility] Comment on above: Expected: 02/19/2025 (Approximate), Expi res: 02/19/2026 Start: 02-19-2025 End: 02-19-2026 Basic metabolic 1998 panel - Serum or Plasma Basic metabolic panel Lab Routine Primary hypertension Expected: 02/19/2025 (Approximate), Expires: 02/19/2026 [facility] Work Phone: Comment on above: Expected: 02/19/2025 (Approximate), Expi res: 02/19/2026 Start: 02-19-2025 End: 02-19-2026 Cortisol AM Cortisol AM Lab Routine Primary hypertension Expected: 02/19/2025 (Approximate), Expires: 02/19/2026 [facility] Comment on above: Expected: 02/19/2025 (Approximate), Expi res: 02/19/2026 Start: 02-19-2025 End: 02-19-2026 Metanephrines Plasma Metanephrines Plasma Lab Routine Primary hypertension Expected: 02/19/2025 (Approximate), Expires: 02/19/2026 [facility] Comment on above: Expected: 02/19/2025 (Approximate), Expi res: 02/19/2026 Start: 02-19-2025 End: 02-19-2025 Patient encounter procedure 02/19/2025 1:00 PM EDT Office Visit [facility] [address] [place] [phone] Cristin Chandra MD [address] [place] [address] [facility] Start: 02-16-2025 End: 02-09-2026 Basic metabolic 2000 panel - Serum or Plasma Basic Metabolic Panel Lab Routine Hypokalemia Expected: 02/16/2025 (Approximate), Expires: 02/09/2026 [facility] Work Phone: Comment on above: Expected: 02/16/2025 (Approximate), Expi res: 02/09/2026 Start: 02-15-2025 End: 02-15-2025 Patient encounter procedure 02/15/2025 2:30 PM EDT Office Visit [facility] [address] [place] [address] Tee Blancas MD [address] [place] [address] [facility] Start: 02-15-2025 End: 02-15-2026 CBC panel - Blood by Automated count CBC Lab Routine Primary hypertension Unintentional weight loss Expected: 02/15/2025 (Approximate), Expires: 02/15/2026 [facility] Comment on above: Expected: 02/15/2025 (Approximate), Expi res: 02/15/2026 Start: 02-15-2025 End: 02-15-2026 Comprehensive metabolic 2000 panel - Serum or Plasma Comprehensive metabolic panel Lab Routine Hypokalemia Expected: 02/15/2025 (Approximate), Expires: 02/15/2026 [facility] Work Phone: Comment on above: Expected: 02/15/2025 (Approximate), Expi res: 02/15/2026 Start: 02-15-2025 End: 02-15-2026 TSH W/REFLEX TO FT4 TSH W/REFLEX TO FT4 Lab Routine Primary hypertension Unintentional weight loss Expected: 02/15/2025 (Approximate), Expires: 02/15/2026 [facility] Comment on above: Expected: 02/15/2025 (Approximate), Expi res: 02/15/2026 Start: 02-14-2025 End: 02-14-2025 Telemedicine consultation with patient 02/14/2025 1:00 PM EDT Telemedicine [facility] [address] [place] [phone] Gonzales Still LPC [facility] Start: 02-06-2025 End: 02-06-2025 Patient encounter procedure 02/06/2025 8:10 AM EDT Office Visit [facility] [address] [place] [phone] Timmy Smiley, [address] [facility] [address] [place] [address] [facility] Start: 01-16-2025 End: 01-16-2025 Patient encounter procedure [facility] Comment on above: Arrived Start: 01-16-2025 End: 01-16-2026 C-peptide C-peptide Lab Routine Hormone disorder Expected: 01/16/2025 (Approximate), Expires: 01/16/2026 [facility] Comment on above: Expected: 01/16/2025 (Approximate), Expi res: 01/16/2026 Start: 01-16-2025 End: 01-16-2026 Cortisol free Cortisol, free Lab Routine Hormone disorder Expected: 01/16/2025 (Approximate), Expires: 01/16/2026 [facility] Comment on above: Expected: 01/16/2025 (Approximate), Expi res: 01/16/2026 Start: 01-16-2025 End: 01-16-2026 Glucose [Mass/volume] in Serum or Plasma Glucose, random Lab Routine Hormone disorder Expected: 01/16/2025 (Approximate), Expires: 01/16/2026 [facility] Comment on above: Expected: 01/16/2025 (Approximate), Expi res: 01/16/2026 Start: 01-16-2025 End: 01-16-2026 Insulin, total Insulin, total Lab Routine Hormone disorder Expected: 01/16/2025 (Approximate), Expires: 01/16/2026 [facility] Comment on above: Expected: 01/16/2025 (Approximate), Expi res: 01/16/2026 Start: 01-16-2025 End: 01-16-2026 Serotonin serum Serotonin serum Lab Routine Hormone disorder Expected: 01/16/2025 (Approximate), Expires: 01/16/2026 [facility] Comment on above: Expected: 01/16/2025 (Approximate), Expi res: 01/16/2026 Start: 01-16-2025 End: 01-16-2026 Thyroglobulin Thyroglobulin Lab Routine Hormone disorder Expected: 01/16/2025 (Approximate), Expires: 01/16/2026 [facility] Comment on above: Expected: 01/16/2025 (Approximate), Expi res: 01/16/2026 Start: 01-16-2025 End: 01-16-2026 Thyroglobulin Antibody Thyroglobulin Antibody Lab Routine Hormone disorder Expected: 01/16/2025 (Approximate), Expires: 01/16/2026 [facility] Comment on above: Expected: 01/16/2025 (Approximate), Expi res: 01/16/2026 Start: 01-16-2025 End: 01-16-2026 Thyrotropin [Units/volume] in Serum or Plasma [facility] Comment on above: Ordered: 01/16/2025 Expected: 01/16/2025 (Approximate), Expires: 01/16/2026 Start: 01-09-2025 End: 01-09-2025 Patient encounter procedure 01/09/2025 9:30 AM EDT Office Visit [facility] [address] [place] [phone] Wolf Martell MD [address] [place], [place] [id number] [facility] Start: 01-08-2025 End: 01-08-2025 Patient encounter procedure 01/08/2025 3:30 PM EDT Office Visit [facility] [place] [address] [place] [address] Carole Franklin DO [address] [facility] [address] [place] [address] [facility] Start: 12-28-2024 End: 12-28-2024 Patient encounter procedure 12/28/2024 2:30 PM EDT Office Visit [facility] [address] [facility] [address] [place] [address] Tee Blancas MD [address] [facility] [address] [place] [address] [facility] Start: 11-27-2024 End: 11-27-2024 Patient encounter procedure 11/27/2024 8:15 AM EDT Office Visit [facility] [address] [facility] [address] [place] [address] Tee Blancas MD [address] [facility] [address] [place] [address] [facility] Start: 11-13-2024 End: 11-13-2024 Patient encounter procedure 11/13/2024 2:20 PM EDT Consult [facility] [address] [facility] [place] [address] Timmy Smiley, [address] [place] [address] [facility] Start: 10-30-2024 End: 10-30-2024 Telemedicine consultation with patient 10/30/2024 12:00 PM EDT Telemedicine [facility] [address] [place] [phone] Gonzales Still LPC [facility] Start: 10-23-2024 End: 10-23-2024 Telemedicine consultation with patient 10/23/2024 12:00 PM EDT Telemedicine [facility] [address] [place] [address] Gonzales Still LPC [facility] Start: 10-17-2024 End: 10-17-2024 Telemedicine consultation with patient 10/17/2024 1:00 PM EDT Telemedicine [facility] [address] [place] [address] Gonzales Still LPC [facility] Start: 10-12-2024 Adult BMI Screening Adult BMI Screening [facility] Start: 10-12-2024 Depression Screening Depression Screening [facility] Start: 10-12-2024 Tobacco Screening Tobacco Screening [facility] Start: 10-09-2024 End: 10-09-2024 Clinical Support [facility] Start: 10-03-2024 End: 10-03-2024 Patient encounter procedure 10/03/2024 4:30 PM EST Office Visit [facility] [address] [facility] [address] [place] [address] Tee Blancas MD [address] [facility] [address] [place] [address] [facility] Start: 09-19-2024 End: 09-19-2024 Clinical Support 09/19/2024 12:00 PM EST Clinical Support [facility] [address] [place] [phone] Gonzales Still LPC [facility] Start: 08-31-2024 End: 08-31-2024 Patient encounter procedure 08/31/2024 11:00 AM EST Office Visit [facility] [address] [place] [address] Minoo Barbour PA [address] [place] [address] Arrived [facility] Comment on above: Arrived Start: 08-21-2024 End: 08-21-2024 Patient encounter procedure 08/21/2024 1:45 PM EST Office Visit [facility] [address] [place] [address] Tee Blancas MD [address] [place] [address] [facility] Start: 08-14-2024 End: 08-14-2024 Patient encounter procedure [facility] Comment on above: Arrived Start: 04-09-2024 COVID-19 Vaccine ( season) COVID-19 Vaccine ( season) [facility] Start: 02-06-2024 Influenza vaccination Influenza Vaccine (#1) [facility] Comment on above: Postponed from 04/09/2023 (Other Patient Reasons) Start: 04-09-2023 COVID-19 Vaccine ( season) COVID-19 Vaccine ( season) [facility] Start: 04-09-2023 Influenza vaccination [facility] Start: 04-04-2020 DTaP,Tdap and Td Vaccines (7 - Td or Tdap) DTaP,Tdap and Td Vaccines (7 - Td or Tdap) [facility] Start: 12-03-2019 DTaP/Tdap/Td Vaccines (1 - Tdap) DTaP/Tdap/Td Vaccines (1 - Tdap) [facility] Start: 2018 Screening for malignant neoplasm of cervix [facility] Start: 12-03-2015 Adult BMI Follow Up Plan Adult BMI Follow Up Plan [facility] Start: 12-03-2015 Hepatitis C screening Hepatitis C Screening [facility] Start: 2008 HPV Vaccines (1 - 2-dose series) HPV Vaccines (1 - 2-dose series) [facility] Start: 1998 MMR Vaccines (1 of 1 - Standard series) MMR Vaccines (1 of 1 - Standard series) [facility] Start: 1998 Varicella vaccination Varicella Vaccines (1 of 2 - 2-dose childhood series) [facility] Start: 06-03-1998 COVID-19 Vaccine (#1) COVID-19 Vaccine (#1) [facility] Start: 1997 Hepatitis B Vaccines (1 of 3 - 3-dose series) Hepatitis B Vaccines (1 of 3 - 3-dose series) [facility] Start: 1997 HIV screening HIV Screening [facility] Start: 1997 Lipid panel Lipid Panel [facility] Start: 1997 [facility] Start: 1997 Yearly Adult Physical Yearly Adult Physical [facility] CBC W Auto Different ial panel - Blood CBC auto differential Lab Routine Lab max of 3 days, Daily, for lab use only until discontinued starting 02/09/2025, 1 completed [facility] Comment on above: Lab max of 3 days, Daily, for lab use on ly until discontinued starting 02/09/2025, 1 completed Comprehensive metabo lic 2000 panel - Serum or Plasma Comprehensive metabolic panel Lab Routine Lab max of 3 days, Daily, for lab use only until discontinued starting 02/09/2025, 1 completed [facility] Comment on above: Lab max of 3 days, Daily, for lab use on ly until discontinued starting 02/09/2025, 1 completed Cytology Cervical or vaginal smear or scraping study Pap Smear Pathology and Cytology Routine Well woman exam with routine gynecological exam Ordered: 08/14/2024 [facility] [employer] Work Phone: Comment on above: Ordered: 08/14/2024 DHEA-sulfate DHEA-sulfate Lab Routine Hormone disorder Ordered: 01/16/2025 [facility] Comment on above: Ordered: 01/16/2025 Estradiol Estradiol Lab Ro utine Hormone disorder Ordered: 01/16/2025 [facility] Work Phone: Comment on above: Ordered: 01/16/2025 Estrone Estrone Lab Rout ine Hormone disorder Ordered: 01/16/2025 [facility] Comment on above: Ordered: 01/16/2025 Ferritin [Mass/volum e] in Serum or Plasma Ferritin Lab Routine Hormone disorder Ordered: 01/16/2025 [facility] Comment on above: Ordered: 01/16/2025 Hemoglobin A1c/Hemoglobin.total in Blood Hemoglobin A1c Lab Routine Hormone disorder Ordered: 01/16/2025 [facility] Comment on above: Ordered: 01/16/2025 Magnesium [Mass/volu me] in Serum or Plasma Magnesium Lab Routine Lab max of 3 days, Daily, for lab use only until discontinued starting 02/09/2025, 1 completed [facility] Comment on above: Lab max of 3 days, Daily, for lab use on ly until discontinued starting 02/09/2025, 1 completed Oxygen Therapy - Lucy ntain SpO2: 90%; *AEROSPACE MANAGER Guidelines for O2: Yes; Document: \[email or web address]\epic \EPIC_Reference\Orders\Re spiratory Care Guidelines\CPG Oxygen 2022.pdf Oxygen Therapy - Maintain SpO2: 90%; *AEROSPACE MANAGER Guidelines for O2: Yes; Document: \[email or web address]\e pic\EPIC_Reference\Ord ers\Respiratory Care Guidelines\CPG Oxygen 2022.pdf Respiratory Care Routine As Needed until discontinued starting 02/08/2025 [employer] Work Phone: Comment on above: As Needed until discontinued starting Patient referral [facility] Work Phone: Potassium [Moles/sandeep e] in 24 hour Urine [facility] Progesterone Progesterone Lab Routine Hormone disorder Ordered: 01/16/2025 [facility] Comment on above: Ordered: 01/16/2025 Renal function 2000 panel - Serum or Plasma [facility] Sex hormone binding globulin Sex hormone binding globulin Lab Routine Hormone disorder Ordered: 01/16/2025 [facility] Comment on above: Ordered: 01/16/2025 T3, reverse T3, reverse Lab Routine Hormone disorder Ordered: 01/16/2025 [facility] Comment on above: Ordered: 01/16/2025 TESTOSTERONE, FREE TESTOSTERONE, FREE Lab Routine Hormone disorder Ordered: 01/16/2025 [facility] Comment on above: Ordered: 01/16/2025 Testosterone, free, total Testos terone, free, total Lab Routine Hormone disorder Ordered: 01/16/2025 [facility] Comment on above: Ordered: 01/16/2025 Thyroid peroxidase antibody Thyroid peroxidase antibody Lab Routine Hormone disorder Ordered: 01/16/2025 [facility] Comment on above: Ordered: 01/16/2025 Thyroxine (T4) free [Mass/volume] in Serum or Plasma T4, free Lab Routine Hormone disorder Ordered: 01/16/2025 [facility] Comment on above: Ordered: 01/16/2025 Triiodothyronine (T3 ) Free [Mass/volume] in Serum or Plasma T3, free Lab Routine Hormone disorder Ordered: 01/16/2025 [facility] Comment on above: Ordered: 01/16/2025 Vitamin D 1,25 dihydroxy Vitamin D 1,25 dihydroxy Lab Routine Hormone disorder Ordered: 01/16/2025 [facility] Comment on above: Ordered: 01/16/2025 [facility] Immunizations Immunization Date Immunization Notes Care Provider Fa [facility] 12-07-2017 meningococcal polysaccharide (groups A, C, Y and W-135) diphtheria toxoid conjugate vaccine (MCV4P) Timmy miacosa Work Phone: [facility] 10-18-2017 KENALOG - 10 mg Kati Dodex Other [place] Other 10-18-2017 Toradol per 15 mg Kati Velazco s Other [place] Other 10-09-2017 KENALOG - 10 mg Kati Hykes Other [place] Other 08-29-2013 hepatitis A vaccine, pediatric/adolescent dosage, 2 dose schedule [employer] Work Phone: [facility] 08-29-2013 human papilloma viru s vaccine, quadrivalent [employer] Work Phone: [facility] 02-21-2013 human papilloma viru s vaccine, quadrivalent Timmy Baljit DO Work Phone: [facility] 12-13-2012 hepatitis A vaccine, pediatric/adolescent dosage, 2 dose schedule Timmy Baljit DO Work Phone: [facility] 12-13-2012 human papilloma viru s vaccine, quadrivalent Timmy Baljit DO Work Phone: [facility] 04-04-2010 meningococcal polysaccharide (groups A, C, Y and W-135) diphtheria toxoid conjugate vaccine (MCV4P) Timmy Baljit DO Work Phone: [facility] 04-04-2010 tetanus toxoid, redu arianne diphtheria toxoid, and acellular pertussis vaccine, adsorbed Timmy Baljit DO Work Phone: [facility] 10-17-2002 diphtheria, tetanus toxoids and acellular pertussis vaccine, unspecified formulation Timmy Baljit DO Work Phone: [facility] 10-17-2002 measles, mumps and rubella virus vaccine Timmy Baljit DO Work Phone: [facility] 10-17-2002 [facility]iovirus [facility], [facility] 05-27-1999 diphtheria, tetanus toxoids and acellular pertussis vaccine, unspecified formulation Timmy Baljit DO Work Phone: [facility] 05-27-1999 haemophilus influenz ae type b vaccine, PRP-T conjugate [facility] DO Work Phone: [facility] 05-27-1999 measles, mumps and rubella virus vaccine Timmy Baljit DO Work Phone: [facility] 05-27-1999 trivalent [facility]iovirus [facility], live, [facility] 07-10-1998 diphtheria, tetanus toxoids and acellular pertussis vaccine, unspecified formulation [facility] Work Phone: [facility] 07-10-1998 haemophilus influenz ae type b conjugate and Hepatitis B vaccine Timmy Baljit DO Work Phone: [facility] 04-19-1998 diphtheria, tetanus toxoids and acellular pertussis vaccine, unspecified formulation Timmy Baljit DO Work Phone: [facility] 04-19-1998 haemophilus influenz ae type b vaccine, HbOC conjugate Timmy Baljit DO Work Phone: [facility] 04-19-1998 poliovirus vaccine, inactivated Timmy Baljit DO Work Phone: [facility] 02-11-1998 diphtheria, tetanus toxoids and acellular pertussis vaccine, unspecified formulation Timmy Baljit DO Work Phone: [facility] 02-11-1998 haemophilus influenz ae type b conjugate and Hepatitis B vaccine Timmy Baljit DO Work Phone: [facility] 02-11-1998 poliovirus vaccine, inactivated Timmy Baljit DO Work Phone: [facility] 1997 hepatitis B vaccine,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 Romero - 09/23/2024 11:10 AM EST Baraklegy sent. documented in this [facility]01-23-2025 History of Present illness Narrative* DENISSE Romero - 08/31/2024 11:00 AM EST Images from the original note were not included. [facility] Med Refill Additional comments: Lexapro, [...] her fall asleep, but can't stay asleep. Hasdreams about her brother. States she is told by people that she shouldn't still be sad about her brother, then she feels likesomething must be wrong with her. States she [...] at the same time 100 tablet 2 Expscgyzidx-Sgrjyrfsx-Tiymnc (Trelegy Ellipta) 100-62.5-25 MCG/ACT aerosol powder Inhale 1 puff Daily 1 each 3 ibuprofen (IBU) 800 MG tablet Take 800 mg by mouth every 8 (eight) hours if needed for mild pain ormoderate pain. LORazepam (Ativan) 0.5 MG tablet Take [...] trying Lunesta. She is to take it rightbefore going to bed, under no circumstances is she to drive after taking Lunesta. Will recheck in 3months or she can call the office sooner [...] day supply on 08/26/2024. Refill provided on Lexapro at this time. Will continue to monitor. [...] brother . Advised pt that grief is aprocess and it is ok to still miss her brother. I believe patient will benefit greatly from counseling. Follow up in about 3 months (around 11/29/2024) for Medication Follow Up. documented in this encounterSaint John's [id number] Telephone encounter Note* Telephone Encounter - Ailyn Quinn MA - 08/16/2024 12:42 PM EST Pt called and stated for the past [...] like meds just until she sees you [facility] [id number] Miscellaneous Notes* Telephone Encounter - Ailyn Quinn MA - 08/16/2024 12:42 PM EST Pt called and stated for the past [...] until she sees you documented in this encounterSaint John's [id number] History of Present illness Narrative* Priyanka Solomon LPN - 08/14/2024 3:00 PM EST Reason for Appointment: Patient ID: Anabel Jang is a 28 y.o. female who presents for [facility] Women Visit Patient presents today for Annual Exam. MEDICATIONS Current Outpatient Medications Medication Instructions albuterol (ProAir RespiClick) 90 mcg/act breath-activated inhaler 1 puff, Inhalation, Every 4 hoursPRN ARIPiprazole (Abilify) 5 MG tablet TAKE 1 TABLET(5 MG) BY MOUTH IN THE MORNING escitalopram (LEXAPRO) 20 mg, Oral, Every 24 hours Qxckqmlxhnj-Egwlifary-Murimk (Trelegy Ellipta) 100-62.5-25 MCG/ACT aerosol powder 1 [...] Ambulatory Problems Diagnosis Date Noted Acute asthma ([facility]) 01/19/2023 Chronic tonsillitis 01/19/2023 Smoker 01/19/2023 Depression ([facility]) 01/19/2023 Deviated nasal septum 01/19/2023 Endometriosis 01/19/2023 Chronic neck pain 01/19/2023 Fibromyalgia 01/19/2023 Generalized anxiety disorder ([facility]) 01/19/2023 Herpes simplex of female genitalia 01/19/2023 History of hysterectomy 01/19/2023 Hypothyroidism ([facility]) 01/19/2023 Irregular periods 01/19/2023 Irritable bowel syndrome 01/19/2023 Bipolar disorder, in full remission, most recent episode manic ([facility]) 01/19/2023 Manic episode, unspecified ([facility]) 01/19/2023 Excessive and frequent menstruation 01/19/2023 Menorrhagia 01/19/2023 Hypertrophy of nasal turbinates 01/19/2023 Nasal obstruction 01/19/2023 Urinary tract infection without hematuria 01/19/2023 Posttraumatic stress disorder ([facility]) 01/20/2023 Abdominal pain 01/18/2024 Bipolar II disorder ([facility]) 10/18/2020 Diarrhea 01/18/2024 Family history of Crohn's disease 01/18/2024 Gastritis 01/18/2024 Nausea & vomiting 01/18/2024 Sprain of right shoulder 01/18/2024 Weight loss 01/18/2024 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 Resolved Ambulatory Problems Diagnosis Date Noted No Resolved Ambulatory Problems Past Medical History: Diagnosis Date Acute pelvic pain, female Anxiety Asthma (CMS/HCC) COVID-2019 Current smoker Disease of thyroid gland ([facility]) DNS (deviated nasal septum) Herpes genitalia Hypertrophy of both inferior nasal turbinates Irregular menstruation Postop check Psoriasis ([facility]) Rhinorrhea Screen for STD (sexually transmitted disease) Stomach problems Tonsil stone Well woman exam HISTORY PAST MEDICAL HISTORY SOCIAL HISTORY Past Medical History: Diagnosis Date Acute pelvic pain, female Anxiety Asthma ([facility]) Chronic neck pain COVID-2019 Current smoker Disease of thyroid gland (CMS/HCC) DNS (deviated nasal septum) Fibromyalgia Generalized anxiety disorder ([facility]) Herpes genitalia Hypertrophy of both inferior nasal turbinates Hypothyroidism ([facility]) Irregular menstruation Menorrhagia Nasal obstruction Postop check Psoriasis ([facility]) scalp Rhinorrhea Screen for STD (sexually transmitted [...] nursing note reviewed. Exam conducted with a metal products viewer present. Vitals: Estimated body mass index is [...] that pain with intercourse has not improved sincehysterectomy. Pap was obtained without difficulty. Patient voiced that Specialist stated that patient will need to complete pelvic floor therapy priorto any surgical procedure for scar tissue. Follow Up: Patient is to return in one year for annual unless needed otherwise. Documented by Priyanka Solomon LPN on behalf of: Timmy Smiley DO documented in this encounterSaint John's [id number] History of Present illness Narrative* Tee Blancas MD - 05/22/2024 3:13 PM EDTAssociated Problem(s): Smoker Discussed smoking cessation with the patient. Encouraged patient to try to cut back gradually and soon quit smoking. Discussed ways to quit smoking including gum, patches, medication, and gradually reducing the number of cigarettes smoked daily. Discussed potential health risks of vermin exterminator smoking. Patient voiced understanding. Benefits of cessation, both health and financial, were reviewed. * Tee Blancas MD - 05/22/2024 3:00 PM EDT Subjective Patient ID: Anabel Jang is a [...] if needed for mild pain ormoderate pain. LORazepam (Ativan) 0.5 MG tablet Take [...] List Items Addressed This Visit Acute asthma ([facility]) - Primary Relevant Medications albuterol (ProAir RespiClick) 90 mcg/act breath-activated inhaler Cmcwcayankz-Rhuatswsh-Mhztps (Trelegy Ellipta) 100-62.5-25 MCG/ACT aerosol powder Smoker Discussed smoking cessation with the patient. Encouraged patient to try to cut back gradually and soon quit smoking. Discussed ways to quit smoking including gum, patches, medication, and gradually reducing the number of cigarettes smoked daily. Discussed potential health risks of vermin exterminator smoking. Patient voiced understanding. Benefits of cessation, both health and financial, were reviewed. No follow-ups on file. documented in this encounterSaint John's [id number] Miscellaneous Notes* Telephone Encounter - Caty Tillman MD - 10/29/2023 12:24 PM EDT I left a message for Anabel to call. She has a normal bleeding workup. Caty Tillman M.D.,Ph.D. Director, Pediatric Hematology Oncology [facility] Previously [facility] Director, [facility] documented in this encounterLakeHealth [facility]03-22-2024 Telephone encounter Note* Telephone Encounter - Caty Tillman MD - 10/29/2023 12:24 PM EDT I left a message for Anabel to call. She has a normal bleeding workup. Caty Tillman M.D.,Ph.D. Director, Pediatric Hematology Oncology [facility] Previously [facility] Director, [facility] [employer] Work Phone: [phone]) 871-293203-07-2024 Miscellaneous Notes* Telephone Encounter - Sarah Vinson RN - 10/14/2023 4:01 PM EST VM left by patient to ask about results. Called back and left VM that we have not received results and we will call her when we do. documented in this encounterPorter Medical CenterTracab03-07-2024 Telephone encounter Note* Telephone Encounter - Sarah Vinson RN - 10/14/2023 4:01 PM EST VM left by patient to ask about results. Called back and left VM that we have not received results and we will call her when we do. [facility] History of Present illness Narrative* Nai Dsouza RN - 10/13/2023 11:00 AM EST Pt is here with son and significant other. She has had nosebleeds in the past. She had menorrhagia prior to hysterectomy. She had prolonged bleeding for 5 months after having her son, which resulted in a hysterectomy. * Caty Tillman MD - 10/13/2023 11:00 AM EST Images from the original note were not included. PATIENT CONSULT NOTE: [facility] [address] [place] [address] Fidel: [phone] DATE OF VISIT: 10/13/2023 10:20 AM RE: Anabel Jang : 1995 HISTORY OF PRESENT ILLNESS: Anabel is a 27 yo white female here to determine the etiology of her history of menorrhagia and the need for a hysterectomy 5 months post delivery. She had ongoing bleeding. BLEEDING HISTORY bruising-yes Petechiae-no nosebleeds-no Increased bleeding from cuts-no Increased bleeding from primary teeth falling out-no Increased bleeding with brushing teeth-no Hematochezia-no Hematuria-no Hemoptysis-no Menorrhagia-yes (in the past) Increased bleeding with yvajflhrhmvd-bfsigfxafoodgrgx-sa Allergies Allergen Reactions Flagyl [Metronidazole] ` Methylprednisolone Vistaril [Hydroxyzine Pamoate] Xanax [Alprazolam] Dulcolax (Bisacodyl) [Bisacodyl] Rash Medication List Accurate as of October 13, 2023 11:59 PM. If you have any questions, ask your nurse or doctor. Medications Continued This Visit ARIPiprazole 5 mg tablet Refills: 0 Dose: 5 mg Commonly known as: ABILIFY escitalopram 20 mg tablet Refills: 0 Dose: 20 mg Commonly known as: LEXAPRO ibuprofen 800 mg tablet Quantity: 21 tablet Refills: 0 Dose: 800 mg Signed by: Dr. Aniceto Wright DO 800 mg, oral, 3 times daily Commonly known as: MOTRIN Past Medical History: Diagnosis Date Anxiety Asthma exercise induced Depression Hypothyroidism Irregular heartbeat Past Surgical History: Procedure Laterality Date CAUTERY OF TURBINATES x2 no bleeding CHOLECYSTECTOMY 2007 no bleeding COLONOSCOPY MOLE REMOVAL no bleeding TONSILLECTOMY 2021 no bleeding TUBAL LIGATION Bilateral no bleeding Immunization History Administered Date(s) Administered COVID-19, mRNA, LNP-S, PF, 100mcg/0.5mL Dose 12/11/2020 SYSTEMS REVIEW: All 10 ROS negative Family History Problem Relation Age of Onset Other Father no bleeding history Diabetes Maternal Grandmother Lupus Maternal Grandmother Kidney disease Maternal Grandmother Von Willebrand disease Son Epistaxis Son Social History Socioeconomic History Marital status: Spouse name: Not on file Number of children: Not on file Years of education: 12 Highest education level: Not on file Occupational History Comment: Disability Tobacco Use Smoking status: Every Day Packs/day: .5 Types: Cigarettes Smokeless tobacco: Never Vaping Use Vaping Use: Former Substances: Nicotine Devices: Pre-filled or refillable cartridge Substance and Sexual Activity Alcohol use: Not Currently Drug use: Never Sexual activity: Defer Other Topics Concern Not on file Social History Narrative Not on file Social Determinants of Health Financial Resource Strain: Not on file Food Insecurity: No Food Insecurity (10/13/2023) Hunger Screening Food Insecurity - Worry: Never True Food Insecurity - Inability: Never True Transportation Needs: Not on file Physical Activity: Not on file Stress: Not on file Social Connections: Not on file Interpersonal Safety: Not on file Housing Instability: Not on file PHYSICAL EXAMINATION: Vital Signs: BP 101/51 (BP Site: Left Arm, BP Postition: Sitting) Pulse 72 Ht 152.4 cm (5') Wt 63 kg (138 lb 14.2 oz) LMP 10/06/2021 BMI 27.13 kg/m General Appearance: Alert, cooperative, no distress, appears stated age Head: Normocephalic, without obvious abnormality, atraumatic Eyes: conjunctiva/corneas clear, EOM's intact, Ears: Not examined Throat: Not examined Back: Symmetric, no curvature, ROM normal, no CVA tenderness Lungs: Clear to auscultation bilaterally, respirations unlabored Chest wall: No tenderness or deformity Heart: Regular rate and rhythm, S1 and S2 normal, no murmur, rub or gallop Abdomen: Soft, non-tender, bowel sounds active all four quadrants, no masses, no organomegaly Genitalia: not examined Extremities: normal Skin: Skin color, texture, turgor normal, no rashes or lesions Lymph nodes: Cervical, supraclavicular, and axillary nodes normal Neurologic: Grossly intact ASSESMENT AND PLAN: This is a 27 year old white female here to determine the etiology of her history of menorrhagia andbleeding post delivery. Her son was just diagnosed with von Willebrand's disease due to nosebleeds We have drawn the following labs today. (CBC with diff, von Willebrand's factor Ag, Ristocetin Cofactor, FVIII Assay, type III vWF-collagen binding, [id number] activity, Fibrinogen, thrombin time and PF100, platelets for electron microscopy, PT, PTT and a mixing study). We will follow up with resultsin 5-6 weeks. Total time spent was 45 minutes: Preparing to see the patient (e.g., review of tests) Obtaining and/or reviewing separately obtained history Performing a medically appropriate examination and/or evaluation Counseling and educating the patient/family/caregiver Ordering medications, tests, or procedures Documenting clinical information in the electronic or other health record Thank you for allowing us to see this wonderful family. If you have any questions/concerns of we can be of assistance in this patient's care please do not hesitate to contact the [facility] at [phone]. Sincerely, SIGNATURES: Caty Tillman M.D.,Ph.D. Director, [facility] Director, Pediatric Hematology Oncology [phone] [facility] History of Present illness Narrative* Priyanka Solomon, KYAW - 09/06/2023 3:10 PM EST Reason for Appointment: Patient ID: Misty Elliott is a 27 y.o. female who presents for Wound Check Patient presents today for Consult appointment. Current Medications: has a current medication list which includes the following prescription(s): aripiprazole, lamotrigine, prazosin, abilify, proair respiclick, cephalexin, escitalopram, ibuprofen, and pregabalin. Medical History: Active Ambulatory Problems Diagnosis Date Noted Acute asthma ([facility]) 01/19/2023 Chronic tonsillitis 01/19/2023 Current smoker 01/19/2023 Depression ([facility]) 01/19/2023 Deviated nasal septum 01/19/2023 Endometriosis 01/19/2023 Chronic neck pain 01/19/2023 Fibromyalgia 01/19/2023 Generalized anxiety disorder ([facility]) 01/19/2023 Herpes simplex of female genitalia 01/19/2023 History of hysterectomy 01/19/2023 Hypothyroidism ([facility]) 01/19/2023 Irregular periods 01/19/2023 Irritable bowel syndrome 01/19/2023 Manic bipolar I disorder in full remission ([facility]) 01/19/2023 Manic disorder, single episode ([facility]) 01/19/2023 Excessive and frequent menstruation 01/19/2023 Menorrhagia 01/19/2023 Hypertrophy of nasal turbinates 01/19/2023 Nasal obstruction 01/19/2023 Urinary tract infection without hematuria 01/19/2023 Posttraumatic stress disorder ([facility]) 01/20/2023 Resolved Ambulatory Problems Diagnosis Date Noted No Resolved Ambulatory Problems Past Medical History: Diagnosis Date Acute pelvic pain, female Anxiety Asthma ([facility]) COVID-19 2020 Disease of thyroid gland ([facility]) DNS (deviated nasal septum) Herpes genitalia Hypertrophy of both inferior nasal turbinates Irregular menstruation Postop check Psoriasis ([facility]) Rhinorrhea Screen for STD (sexually [...] nursing note reviewed. Exam conducted with a metal products viewer present. Vitals: Estimated body mass index is 27.54 kg/m as calculated from the following: Height as of 07/06/: 5'. Weight as of this encounter: 141 [...] of: Timmy Smiley DO documented in this encounterSaint John's [id number] NotePROCEDURE DETAILS Preoperative Diagnosis: Nasal obstruction inferior turbinate hypertrophy Deviated nasal septum Nasal valve stenosis Postoperative Diagnosis: Nasal obstruction inferior turbinate hypertrophy Deviated nasal septum Nasal valve stenosis Surgeon: Dr. Dash Resident/Fellow/Other Line Builder: Dr. Toledo Procedure: Septorhinoplasty Anesthesia: general Estimated [...] entire procedure I am a:Resident/Fellow Electronic Signatures: Mateo Dash) (Signed 25-Dec-2022 20:36) Authored: Post-Operative Note, Chart Review, Note Completion Co-Signer: Post-Operative Note, Chart Review, Note Completion Marco Antonio Toledo ( (Resident)) (Signed 24-Dec-2022 15:26) Authored: Post-Operative Note, Chart Review, Note Completion Last Updated: 25-Dec-2022 20:36 by Mateo Dash)[facility]05-18-2023 Miscellaneous Notes* Op Note - [place] Conversion - 12/24/2022 11:33 AM EDT PROCEDURE DETAILS Preoperative Diagnosis: Nasal obstruction inferior turbinate hypertrophy Deviated nasal septum Nasal valve stenosis Postoperative Diagnosis: Nasal obstruction inferior turbinate hypertrophy Deviated nasal septum Nasal valve stenosis Surgeon: Dr. Dash Resident/Fellow/Other Line Builder: Dr. Toledo Procedure: Septorhinoplasty Anesthesia: general Estimated [...] 1% lidocaine with epinephrine and then packed withdecongestant-soaked pledgets. The face was prepped and draped [...] was found to be more extensively involved inthe obstruction prompting placement of a dorsal and caudal strut graft. Saddling of the middle vault was encountered intra- operatively and open septorhinoplasty was warranted to achieve reconstruction of the nasal tip complex, support the nasal tip and establish nasal airway patency. Deformed portions of the cartilage were excised with >1.0 cm L-shaped strut maintained. Prior to sterile prepping and draping, the right ear had been identified, marked, and injected withlocal anesthetic with epinephrine. A curvilinear anterior auricular incision was created just posterior to the conchal eminence and sharp dissection was carried down onto the conchal cartilage. The skin-soft tissue envelope was elevated off of the conchal cartilage, leaving the anterior perichondrium in place. Following wide exposure, the cartilage was sharply incised, taking care to preserve an adequate amount of cartilage along the anti- helical fold. Subperichondrial dissection was performed on the [...] rasped using both the coarse and fine rasped.A 3mm osteotome was then used to perform [...] procedure I am a: Resident/Fellow Electronic Signatures: Mateo Dash) (Signed 25-Dec-2022 20:36) Authored: Post-Operative Note, Chart Review, Note Completion Co-Signer: Post-Operative Note, Chart Review, Note Completion Marco Antonio Toledo ( (Resident)) (Signed 24-Dec-2022 15:26) Authored: Post-Operative Note, Chart Review, Note Completion Last Updated: 25-Dec-2022 20:36 by Mateo Dash) documented in this [facility] Work Phone: 1(685) 675-496405-18-2023 Note* Op Note - [place] Conversion - 12/24/2022 11:33 AM EDT PROCEDURE DETAILS Preoperative Diagnosis: Nasal obstruction inferior turbinate hypertrophy Deviated nasal septum Nasal valve stenosis Postoperative Diagnosis: Nasal obstruction inferior turbinate hypertrophy Deviated nasal septum Nasal valve stenosis Surgeon: Dr. Dash Resident/Fellow/Other Line Builder: Dr. Toledo Procedure: Septorhinoplasty Anesthesia: general Estimated [...] 1% lidocaine with epinephrine and then packed withdecongestant-soaked pledgets. The face was prepped and draped [...] was found to be more extensively involved inthe obstruction prompting placement of a dorsal and caudal strut graft. Saddling of the middle vault was encountered intra- operatively and open septorhinoplasty was warranted to achieve reconstruction of the nasal tip complex, support the nasal tip and establish nasal airway patency. Deformed portions of the cartilage were excised with >1.0 cm L-shaped strut maintained. Prior to sterile prepping and draping, the right ear had been identified, marked, and injected withlocal anesthetic with epinephrine. A curvilinear anterior auricular incision was created just posterior to the conchal eminence and sharp dissection was carried down onto the conchal cartilage. The skin-soft tissue envelope was elevated off of the conchal cartilage, leaving the anterior perichondrium in place. Following wide exposure, the cartilage was sharply incised, taking care to preserve an adequate amount of cartilage along the anti- helical fold. Subperichondrial dissection was performed on the [...] rasped using both the coarse and fine rasped.A 3mm osteotome was then used to perform [...] procedure I am a: Resident/Fellow Electronic Signatures: Mateo Dash) (Signed 25-Dec-2022 20:36) Authored: Post-Operative Note, Chart Review, Note Completion Co-Signer: Post-Operative Note, Chart Review, Note Completion Marco Antonio Toledo (Resident)) (Signed 24-Dec-2022 15:26) Authored: Post-Operative Note, Chart Review, Note Completion Last Updated: 25-Dec-2022 20:36 by Mateo Dash) [facility] Work Phone: 1(178) 993-303505-18-2023 NoteHistory & Physical Reviewed: /Lactating: Are You no [...] the note. I personally evaluated the patient [id number] Electronic Signatures: Mateo Dash) (Signed 24-Dec-2022 10:47) Authored: Note Completion Co-Signer: History & Physical Reviewed, ERAS, Consent, Note Completion Marco Antonio Toledo (DO (Resident)) (Signed 23-Dec-2022 20:10) Authored: History & Physical Reviewed, ERAS, Consent, Note Completion Last Updated: 24-Dec-2022 10:47 by Mateo Dash)[facility]05-18-2023 History and physical note* [place] Conversion - 12/24/2022 5:09 AM EDT History & Physical Reviewed: /Lactating: Are You [...] evaluated the patient on 24-Dec-2022 Electronic Signatures: Mateo Dash) (Signed 24-Dec-2022 10:47) Authored: Note Completion Co-Signer: History & Physical Reviewed, ERAS, Consent, Note Completion Marco Antonio Toledo (DO (Resident)) (Signed 23-Dec-2022 20:10) Authored: History & Physical Reviewed, ERAS, Consent, Note Completion Last Updated: 24-Dec-2022 10:47 by Mateo Dash) [facility]05-18-2023 History and physical note* [place] Conversion - 12/24/2022 5:09 AM EDT History & Physical Reviewed: /Lactating: Are You [...] evaluated the patient on 24-Dec-2022 Electronic Signatures: Mateo Dash) (Signed 24-Dec-2022 10:47) Authored: Note Completion Co-Signer: History & Physical Reviewed, ERAS, Consent, Note Completion Marco Antonio Toledo ( (Resident)) (Signed 23-Dec-2022 20:10) Authored: History & Physical Reviewed, ERAS, Consent, Note Completion Last Updated: 24-Dec-2022 10:47 by Mateo Dash () documented in this [facility] Work Phone: [phone]) 976-453912-19-2022 NoteOPERATIVE NOTE OPERATION DATE: 07/27/2022 PROCEDURE: vNOTES hysterectomy with cystoscopy. PREOPERATIVE DIAGNOSIS: 1. Pelvic pain. 2. Endometriosis. 3. Intermittent bleeding. 4. Dyspareunia. 5. Dysmenorrhea. POSTOPERATIVE DIAGNOSIS: 1. Pelvic pain. 2. Endometriosis. 3. Intermittent bleeding. 4. Dyspareunia. 5. Dysmenorrhea. ANESTHESIA: General. SURGEON: Timmy Smiley D.O. HAT FORMING MACHINE OPERATOR: ZEENAT Marc URINE OUTPUT: Yellow and clear. [...] condition. Sponge, lap and instruments counts correct x2.[id number] NoteOPERATIVE NOTE OPERATION DATE: 02/26/2022 PROCEDURE: Bebe endometrial ablation with cystoscopy. PREOPERATIVE DIAGNOSIS: Menorrhagia, dysmenorrhea. POSTOPERATIVE DIAGNOSIS: Menorrhagia, dysmenorrhea. ANESTHESIA: General. SURGEON: Timmy Smiley D.O. HAT FORMING MACHINE OPERATOR: None. BLOOD LOSS: 5 mL. URINE OUTPUT: [...] Patient taken to recovery in stable condition. [facility] Signed and Approved by: DR TIMMY SMILEY . 02/27/2022 08:14:00[facility]05-26-2022 Evaluation note* Encounter Date Diagnosis Assessment Notes Treatment Notes Treatment Clinical Notes December, Diarrhea (ICD-10 - R19.7) [place] Other 09-28-2021 Evaluation note* Encounter Date Diagnosis Assessment Notes Treatment Notes Treatment Clinical Notes Apr, COVID-19 (ICD-10 - U07.1) Apr, Other viral enteritis (ICD-10 - A08.39) Apr, Loss of appetite (ICD-10 - R63.0) Apr, Nausea (ICD-10 - R11.0) CONTINUE CARAFATE QID EGD [place] Other Evaluation noteNo [email or web address] [email or web address] Other Evaluation note* Diagnosis Deviated nasal septum Hypertrophy of nasal turbinates Other specified disorders of nose and nasal sinuses Unspecified asthma, uncomplicated Anxiety disorder, unspecified Depression, unspecified Gastro-esophageal reflux disease without esophagitis Nicotine dependence, unspecified, uncomplicated documented in this encounter [facility] Work Phone: Evaluation note* Diagnosis Incisional irritation, initial encounter S/P laparoscopic surgery Other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 Narrative No data available for this section [facility] Discharge instructionsNot on filedocumented in this encounterProEncompass [facility] Health SystemInstructionsNot on filedocumented in this encounterProEncompass [facility] Health SystemInstructions* Attachments The following attachments cannot be sent through Care Everywhere. * Taking care of bruises (Bahraini) documented in this encounterProEncompass [facility] Health SystemInstructionsNot on file documented in this encounterProMedica Health SystemInstructionsNot on file documented in this encounterProOhiohealth [facility] Hospitalca Health SystemInstructionsNot on file documented in this encounterProEncompass [facility] Health SystemInstructionsNot on file documented in this encounterProOhiohealth Dublin [facility] Hospitalca Health SystemInstructionsNot on file documented in this encounterProEncompass [facility] Health SystemInstructionsNot on file documented in this encounterProPaulding County Hospital SystemProgress note No data available for this section [facility] Reason for referral (narrative)No reason for referral information availableOhiohealth Dublin Methodist Hospital Work Phone: Summary Purpose Family History No Family History Records FoundUnknown Family Member Name Dates Details No pertinent family history: Mother, Father(V49.89, Z78.9) Status:Active Relationship Condition Age at Onset Recorded Date/T dorene grandparent Diabetes mellitus Unknown father Diabetes mellitus Unknown Advance Directives No Advanced Directives Records Found Advance Directive Response Recorded Date/ Time Advance Directives No April 10:18am Date Activated Date Inactivated Comments 12/04/2024 12:12 PM Date Activated Date Inactivated Comments 12/04/2024 12:12 PM 12/12/2024 5:51 PM Date Activated Date Inactivated Comments 02/08/2025 8:41 PM Date Activated Date Inactivated Comments 12/04/2024 12:12 PM 12/12/2024 5:51 PM Date Activated Date Inactivated Comments 02/08/2025 8:41 PM 02/09/2025 6:09 PM Date Activated Date Inactivated Comments 12/04/2024 12:12 PM 12/12/2024 5:51 PM Chief Complaint and Reason for Visit Chief Complaint Admit Date [facility] December 04, 2024 8:2 7am Hypokalemia February 22, 2025 2:14 pm Chief Complaint Admit Date [facility] December 04, 2024 8:2 7am Additional Source Comments INFORMATION SOURCE (unrecogn ized section and content) DATE CREATED AUTHOR 02/02/2018 [facility] DATE CREATED AUTHOR AUTHOR'S ORGANIZ ATION 12/18/2022 [facility] DATE CREATED AUTHOR AUTHOR'S ORGANIZ ATION 03/19/2023 [facility] DATE CREATED AUTHOR AUTHOR'S ORGANIZ ATION 12/12/2024 [facility] DATE CREATED AUTHOR AUTHOR'S ORGANIZ ATION 01/06/2025 [facility] DATE CREATED AUTHOR AUTHOR'S ORGANIZ ATION 01/07/2025 [facility] DATE CREATED AUTHOR AUTHOR'S ORGANIZ ATION 01/28/2025 [facility] DATE CREATED AUTHOR AUTHOR'S ORGANIZ ATION 03/02/[address] [facility] DATE CREATED AUTHOR AUTHOR'S ORGANIZ ATION 03/03/2025 [facility] DATE CREATED AUTHOR AUTHOR'S ORGANIZ ATION 03/11/2025 [facility] DATE CREATED AUTHOR AUTHOR'S ORGANIZ ATION 03/22/2025 [facility] DATE CREATED AUTHOR AUTHOR'S ORGANIZ ATION 03/23/2025 [facility] DATE CREATED AUTHOR AUTHOR'S ORGANIZ ATION 03/24/2025 [facility] REASON FOR VISIT (unrecogniz ed section and content) Reason Comments Other Revision septoplasty , turbinate reduction, nasal valve repair Reason Comments Wound Check Reason Comments Anxiety Reason Onset Date Comments Med Refill 05/22/2024 Reason Comments Well Women Visit Reason Comments Med Refill Lexapro, Valcyclovir Reason Comments Psychiatric Evaluation PTSD (Post-Traumatic Stress Disorder) Anxiety Specialty Diagnoses / Procedures Referred By River t Referred To Contact Behavioral Health Diagnoses Grief reaction (CMS/HCC) Procedures MD OFFICE/OUTPATIENT NEW HIGH MDM 60 MINUTES Minoo Barbour PA [address] [place] [address] Phone: tel: fax: Tessy GonzalesTRISTAN Referral ID Status Reason Start Date Expiration Date V isits Requested Visits Authorized [id number] Closed Specialty Services Required 08/31/2024 02/27/2025 1 1 Reason Comments Med Refill Reason Comments New Patient Reason Onset Date Comments Med Refill 09/27/2024 [...] 52 to 62 mpg , [facility] and then life flighted to [place] Reason Onset Date Comments Med Refill 12/14/2024 Reason Onset Date Comments Med Refill 12/18/2024 Reason Onset Date Comments Med Refill 12/25/2024 Reason Onset Date Comments Med Refill 01/11/2025 Reason Onset Date Comments medication dosing/directions 01/11/2025 Reason Comments Hormones Reason Comments Hypertension Pt reports to ER wit h complaints of hypertension an a headache, pt reports speaking with her PCP and was instructed to come here. Specialty Diagnoses / Procedures Referred By River t Referred To Contact Diagnoses Hypokalemia Hypertension Uncontrolled hypertension Siomara Bolaños MD [address] [place] [address] Phone: tel: fax: Referral ID Status Reason Start Date Expiration Date Visits Re quested Visits Authorized [id number] 1 1 Reason Comments Follow-up Recent hospital visi ts: admitted 02/09/[address] [facility] dx: HTN,hypokalemia discharged home 02/09/25 rx's for potassium and lisinopril given02/13/25 [facility] ER for constipation pt was discharged home advised to do fleets enema Reason Comments Follow-up PTSD (Post-Traumatic Stress Disorder) Anxiety Panic Attack Reason Comments Adrenal Problem New REF/LAB Specialty Diagnoses / Procedures Referred By Contac t Referred To Contact Endocrinology Diagnoses Endocrine disorder, unspecified Procedures MD OFFICE/OUTPATIENT NEW MODERATE MDM 45 MINUTES Fabian Cochran MD [address] [place] [address] Phone: tel: fax:[phone] Cristin Chandra MD [address] [place] [address] Phone: tel: fax: Referral ID Status Reason Start Date Expiration Date Visits Re quested Visits Authorized [id number] Closed 02/13/2025 08/12/2025 1 1 Reason Onset Date Comments Appointment 02/22/2025 Clinician stacey goff about telehealth appt. Reason Onset Date Comments Results 03/08/2025 Reason Onset Date Comments Med Refill 03/19/2025 Reason Comments hormone disorder Vaginal Pain Care Teams (unrecognized sec tion and content) Roller Embosser Relationship Specialty Start Date End Date Tee Blancas MD [address] [facility] [address] [place] [address] PCP - General Family Medicine 01/20/23 Team Status: Active Member Role Status Dates PHYSICIAN NO FAMILY Primary Care Provider Active Team Status: Inactive Member Role Status Dates PHYSICIAN NO FAMILY Primary Care Provider Active Start: February 04, 2024 End: February 04, 2024 Kati Mark MD Attending Provider Active Star t: February 04, 2024 End: February 04, 2024 Roller Embosser Relationship Specialty Start Date End Date Tee Blancas MD [address] [place] [address] [place] [address] PCP - General Family Medicine 01/20/23 Roller Embosser Relationship Specialty Start Date End Date Tee Blancas MD [address] [place] [address] [place] [address] PCP - General Family Medicine 01/20/23 Roller Embosser Relationship Specialty Start Date End Date Tee Blancas MD [address] [facility] [address] [place] [address] PCP - General Family Medicine 01/20/23 Roller Embosser Relationship Specialty Start Date End Date Tee Blancas MD [address] [facility] [address] [place] [address] PCP - General [facility] Medicine 01/20/23 Roller Embosser Relationship Specialty Start Date End Date Tee Blancas MD [address] [facility] [address] [place] [address] PCP - General [facility] Medicine 01/20/23 Roller Embosser Relationship Specialty Start Date End Date Tee Blancas MD [address] [facility] [address] [place] [address] PCP - General Family Medicine 01/20/23 Roller Embosser Relationship Specialty Start Date End Date Tee Blancas MD [address] [place] [address] [place] [address] PCP - General Family Medicine 01/20/23 Roller Embosser Relationship Specialty Start Date End Date Tee Blancas MD [address] [facility] [address] [place] [address] PCP - General Family Medicine 01/20/23 Roller Embosser Relationship Specialty Start Date End Date Tee Blancas MD [address] [place] [address] [place] [address] PCP - General Family Medicine 01/20/23 Roller Embosser Relationship Specialty Start Date End Date Tee Blancas MD [address] [place] [address] [place] [address] PCP - General Family Medicine 10/13/23 Roller Embosser Relationship Specialty Start Date End Date Tee Blancas MD [address] [place] [address] [place] [address] PCP - General Family Medicine 10/13/23 Roller Embosser Relationship Specialty Start Date End Date Tee Blancas MD [address] [place] [address] [place] [address] PCP - General Family Medicine 10/13/23 Roller Embosser Relationship Specialty Start Date End Date Tee Blancas MD [address] [place] [address] [place] [address] PCP - General Family Medicine 01/20/23 Gonzales Still LPC Tool Machine Set Up Operator Bankruptcy Attorney 10/02/24 Roller Embosser Relationship Specialty Start Date End Date Tee Blancas MD [address] [place] [address] [place] [address] PCP - General Family Medicine 01/20/23 Gonzales Still LPC Tool Machine Set Up Operator Bankruptcy Attorney 10/02/24 Roller Embosser Relationship Specialty Start Date End Date Tee Blancas MD [address] [place] [address] [place] [address] PCP - General Family Medicine 01/20/23 Gonzales Still LPC Tool Machine Set Up Operator Bankruptcy Attorney 10/02/24 Roller Embosser Relationship Specialty Start Date End Date Tee Blancas MD [address] [place] [address] [place] [address] PCP - General Family Medicine 01/20/23 Gonzales Still LPC Tool Machine Set Up Operator Bankruptcy Attorney 10/02/24 Roller Embosser Relationship Specialty Start Date End Date Tee Blancas MD [address] [place] [address] [place] [address] PCP - General Family Medicine 01/20/23 Gonzales Still LPC Tool Machine Set Up Operator Bankruptcy Attorney 10/02/24 Roller Embosser Relationship Specialty Start Date End Date Tee Blancas MD [address] [place] [address] [place] [address] PCP - General Family Medicine 01/20/23 Gonzales Still LPC Tool Machine Set Up Operator Bankruptcy Attorney 10/02/24 Roller Embosser Relationship Specialty Start Date End Date Tee Blancas MD [address] [place] [address] [place] [address] PCP - General Family Medicine 01/20/23 Gonzales Still LPC Tool Machine Set Up Operator Bankruptcy Attorney 10/02/24 Roller Embosser Relationship Specialty Start Date End Date Tee Blancas MD [address] [place] [place] [address] PCP - General Family Medicine 01/20/23 Gonzales Still LPC Tool Machine Set Up Operator Bankruptcy Attorney 10/02/24 Roller Embosser Relationship Specialty Start Date End Date Tee Blancas MD [address] [place] [address] [place] [address] PCP - General Family Medicine 01/20/23 Gonzales Still LPC Tool Machine Set Up Operator Bankruptcy Attorney 10/02/24 Roller Embosser Relationship Specialty Start Date End Date Tee Blancas MD [address] [place] [address] [place] [address] PCP - General Family Medicine 01/20/23 Gonzales Still LPC Tool Machine Set Up Operator Bankruptcy Attorney 10/02/24 Team Status: Inactive Member Role Status Dates Dilia Cleary DO Emergency Provider Active Sta rt: December 04, 2024 End: December 04, 2024 PHYSICIAN NO FAMILY Primary Care Provider Active Start: December 04, 2024 End: December 04, 2024 Roller Embosser Relationship Specialty Start Date End Date Tee Blancas MD [address] [place] [address] [place] [address] PCP - General Family Medicine 04/01/24 Roller Embosser Relationship Specialty Start Date End Date Tee Blancas MD [address] [place] [address] [place] [address] PCP - General Family Medicine 01/20/23 Gonzales Still LPC Tool Machine Set Up Operator Bankruptcy Attorney 10/02/24 Roller Embosser Relationship Specialty Start Date End Date Tee Blancas MD [address] [place] [address] [place] [address] PCP - General Family Medicine 01/20/23 Gonzales Still LPC Tool Machine Set Up Operator Bankruptcy Attorney 10/02/24 Roller Embosser Relationship Specialty Start Date End Date Tee Blancas MD [address] [place] [address] [place] [address] PCP - General Family Medicine 01/20/23 Gonzales Still LPC Tool Machine Set Up Operator Bankruptcy Attorney 10/02/24 Roller Embosser Relationship Specialty Start Date End Date Tee Blancas MD [address] [place] [address] [place] [address] PCP - General Family Medicine 01/20/23 Gonzales Still LPC Tool Machine Set Up Operator Bankruptcy Attorney 10/02/24 Roller Embosser Relationship Specialty Start Date End Date Tee Blancas MD [address] [place] [address] [place] [address] PCP - General Family Medicine 04/01/24 Roller Embosser Relationship Specialty Start Date End Date Tee Blancas MD [address] [place] [address] [place] [address] PCP - General Family Medicine 04/01/24 Roller Embosser Relationship Specialty Start Date End Date Tee Blancas MD [address] [place] [address] [place] [address] PCP - General Family Medicine 01/20/23 Gonzales Still LPC Tool Machine Set Up Operator Bankruptcy Attorney 10/02/24 Roller Embosser Relationship Specialty Start Date End Date Tee Blancas MD [address] [place] [address] [place] [address] PCP - General Family Medicine 01/20/23 Gonzales Still LPC Tool Machine Set Up Operator Bankruptcy Attorney 10/02/24 Roller Embosser Relationship Specialty Start Date End Date Tee Blancas MD [address] [place] [place] [address] PCP - General Family Medicine 01/20/23 Gonzales Still LPC Tool Machine Set Up Operator Bankruptcy Attorney 10/02/24 Roller Embosser Relationship Specialty Start Date End Date Tee Blancas MD [address] [place] [place] [address] PCP - General Family Medicine 01/20/23 Gonzales Still LPC Tool Machine Set Up Operator Bankruptcy Attorney 10/02/24 Roller Embosser Relationship Specialty Start Date End Date Tee Blancas MD [address] [place] [address] [place] [address] PCP - General Family Medicine 01/20/23 Gonzales Still LPC Tool Machine Set Up Operator Bankruptcy Attorney 10/02/24 Roller Embosser Relationship Specialty Start Date End Date Tee Blancas MD [address] [place] [address] [place] [address] PCP - General Family Medicine 04/01/24 Roller Embosser Relationship Specialty Start Date End Date Tee Blancas MD [address] [place] [address] [place] [address] PCP - General Family Medicine 01/20/23 Gonzales Still LPC Tool Machine Set Up Operator Bankruptcy Attorney 10/02/24 Roller Embosser Relationship Specialty Start Date End Date Tee Blancas MD [address] [place] [address] [place] [address] PCP - General Family Medicine 01/20/23 Gonzales Still LPC Tool Machine Set Up Operator Bankruptcy Attorney 10/02/24 Roller Embosser Relationship Specialty Start Date End Date Tee Blancas MD [address] [place] [address] [place] [address] PCP - General Family Medicine 01/20/23 Gonzales Still LPC Tool Machine Set Up Operator Bankruptcy Attorney 10/02/24 Roller Embosser Relationship Specialty Start Date End Date Tee Blancas MD [address] [facility] [address] [place] [address] PCP - General Family Medicine 01/20/23 Gonzales Still LPC Tool Machine Set Up Operator Bankruptcy Attorney 10/02/24 Roller Embosser Relationship Specialty Start Date End Date Tee Blancas MD [address] [place] [address] [place] [address] PCP - General Family Medicine 01/20/23 Gonzales Still LPC Tool Machine Set Up Operator Bankruptcy Attorney 10/02/24 Team Status: Active Member Role Status Dates Tee Blancas MD Family Provider Active PHYSICIAN NO FAMILY Primary Care Provider Active Team Status: Inactive Member Role Status Dates PHYSICIAN NO FAMILY Primary Care Provider Active Start: February 22, 2025 End: February 22, 2025 Kvng Reynoso MD Attending Provider Active Start : February 22, 2025 End: February 22, 2025 Tee Blancas MD Family Provider Active Start: February 22, 2025 End: February 22, 2025 Roller Embosser Relationship Specialty Start Date End Date Tee Blancas MD [address] [facility] [address] [place] [address] PCP - General Family Medicine 02/13/25 Roller Embosser Relationship Specialty Start Date End Date Tee Blancas MD [address] [facility] [address] [place] [address] PCP - General Family Medicine 01/20/23 Gonzales Still LPC Tool Machine Set Up Operator Bankruptcy Attorney 10/02/24 Roller Embosser Relationship Specialty Start Date End Date Tee Blancas MD [address] [place] [place] [address] PCP - General Family Medicine 01/20/23 Gonzales Still LPC Tool Machine Set Up Operator Bankruptcy Attorney 10/02/24 Roller Embosser Relationship Specialty Start Date End Date Tee Blancas MD [address] [place] [address] [place] [address] PCP - General Family Medicine 01/20/23 Gonzales Still LPC Tool Machine Set Up Operator Bankruptcy Attorney 10/02/24 Goals (unrecognized section and content) Goals may be documented in a n alternate section Scheduled Active and Recently Administ ered Medications (unrecognized section and content) Medication Order 02/07/2025 02/08/2025 02/09/2025 acetaminophen (OFIRMEV) IVPB Premix 1,000 mg (COMPLETED) 1,000 mg, intravenous, at 400 mL/hr, Administer over 15 Minutes, Once, On Imelda 02/08/25 at 1905, For 1 dose 1920 (New Bag - Provider: Bambi Kwan, LUIS FELIPE)1935 (Stop Bag - Provider: Bambi Kwan, LUIS FELIPE) ARIPiprazole (ABILIFY) tablet 5 mg 5 mg, oral, Daily, First dose on Wed02/09/25 at 0900, Look-alike/sound-alike medication - verify indication for use. 917 (Given - Provider: Meena Sanchez, LUIS FELIPE) diphenhydrAMINE (BENADRYL) injection 50 mg (COMPLETED) 50 mg, intravenous, Once, On Imelda 02/08/25 at 1735, For 1 dose, Look-alike/sound-alike medication - verify indication for use. 1809 (Given - Provider: Kuldip Pierre Jr., RN) enoxaparin (LOVENOX) syringe 40 mg 40 mg, subcutaneous, Daily, First dose on Wed02/09/25 at 0600, When Creatinine Clearance 30 mL/min or greater Look-alike/sound-alike medication - verify indication for use. 0644 (Given - Provider: Kate Patel RN) fentaNYL (SUBLIMAZE) injection 25 mcg (COMPLETED) 25 mcg, intravenous, Once, On Imelda 02/08/25 at 1735, For 1 dose, For IVP, must be given slow IV Push over 1 to 2 minutes. Look-alike/sound-alike medication - verify indication for use. 181 (Given - Provider: Kuldip Pierre Jr., RN) fluticasone furoate-vilanteroL (BREO ELLIPTA) 100-25 mcg/dose inhaler 1 puff(Linked Group 1) 1 puff, inhalation, Daily, First dose on Wed02/09/25 at 1000, Administer fluticasone furoate-vilanterol (BREO ELLIPTA) 100-25 mcg/dose inhaler in addition to umeclidinium (INCRUSE ELLIPTA) 62.5 mcg/dose inhaler as a replacement for iqrsatyfnkk-ouxogvajlgvl-pv lanterol (TRELEGY ELLIPTA) inhaler 100-62.5-25 mcg/dose. 09 (Given - Provider: Alda Flaherty RCP) labetaloL (NORMODYNE,TRANDATE) injection 20 mg (COMPLETED) 20 mg, intravenous, Once, On Imelda 02/08/25 at 1905, For 1 dose, For systolic blood pressure greater than 160 mmHg Look-alike/sound-alike medication - verify indication for use. 191 (Given - Provider: Bambi Kwan RN - Comment: 184/113) lisinopriL (PRINIVIL,ZESTRIL) tablet 10 mg 10 mg, oral, Daily, First dose on Wed02/09/25 at 1230, Look-alike/sound-alike medication - verify indication for use. 1331 (Given - Provider: Meena Sanchez RN) metoprolol succinate XL (TOPROL XL) 24 hr tablet 25 mg 25 mg, oral, Daily, First dose on Wed02/09/25 at 0900, Look-alike/sound-alike medication - verify indication for use. Do not crush or chew. 1145 (Given - Provider: Meena Sanchez, LUIS FELIPE) ondansetron (PF) (ZOFRAN) injection 4 mg (COMPLETED) 4 mg, intravenous, Once, On Imelda 02/08/25 at 1735, For 1 dose, Intravenous administration preferred to be given over 2-5 minutes. 180 (Given - Provider: Kuldip Pierre Jr., RN) potassium chloride (KLOR-CON M 20) CR tablet 40 mEq (COMPLETED) 40 mEq, oral, Once, On Imelda 02/08/25 at 1900, For 1 dose, Do not crush or chew. 1914 (Given - Provider: Bambi Kwan, LUIS FELIPE) potassium chloride IVPB 10 mEq/100 mL in water (0.1 mEq/mL premix) (CANCELED) 10 mEq, intravenous, at 100 mL/hr, Administer over 60 Minutes, Every 1 hour, First dose on Imelda 02/08/25 at 1900, For 2 doses, VESICANT (YELLOW) Infuse each 10 mEq over a minimum of 1 hour. 1918 (New Bag - Provider: Bambi Kwan, RN)1920 (Rate/Dose Change - Provider: Kate Patel RN - Comment: administered per ED RN while pt in ED)1950 (Paused - Provider: Kate Patel RN)1950 (Paused - Provider: Kate Patel, LUIS FELIPE)1954 (Restarted - Provider: Kate Patel RN)1999 (Not Given - Provider: Meena Sanchez, LUIS FELIPE - Reason: Other)2114 (Stop Bag - Provider: Kate Patel RN)2114 (Stop Bag - Provider: Kate Patel RN)2114 (Stop Bag - Provider: Kate Patel RN) pregabalin (LYRICA) capsule 100 mg 100 mg, oral, 2 times daily, First dose on Imelda 02/08/25 at 2300, Look-alike/sound-alike medication. Verify indication for use 2345 (Given - Provider: Kate Patel RN) 09 (Given - Provider: Meena Sanchez, RN)2099 (Due) sodium chloride 0.9 % flush 3 mL 3 mL, intravenous, Every 12 hours scheduled, First dose on Imelda 02/08/25 at 2100 2099 (Not Given - Provider: Kate Patel RN - Reason: Other - Comment: DC'D PER provider) 0920 (Given - Provider: Meena Sanchez RN)2100 (Due) umeclidinium (INCRUSE ELLIPTA) 62.5 mcg/actuation inhaler 1 puff(Linked Group 1) 1 puff, inhalation, Daily, First dose on Wed02/09/25 at 1000, Administer umeclidinium (INCRUSE ELLIPTA) 62.5 mcg/dose inhaler in addition to fluticasone furoate-vilanterol (BREO ELLIPTA) 100-25 mcg/dose inhaler as a replacement for mqvndtjjjmn-qkftfwjneoaq-yz lanterol (TRELEGY ELLIPTA) inhaler 100-62.5-25 mcg/dose. Do not shake inhaler. 0909 (Given - Provider: Alda Flaherty RCP) PRN Medication Order 02/07/2025 02/08/2025 02/09/2025 acetaminophen (TYLENOL) tablet 650 mg 650 mg, oral, Every 6 hours PRN, mild pain - pain scale 1-3, headaches, temperature greater than 38 C, Starting on Wed02/08/25 at 2039 0140 (Given - Provid er: Kate Patel RN) ALPRAZolam (XANAX) tablet 0.5 mg 0.5 mg, oral, 2 times daily PRN, anxiety, Starting on Wed02/08/25 at 2315, Look-alike/sound-alike medication - verify indication for use. 2334 (Not Given - Provider: Kate Patel RN - Reason: Patient/family refused) dextrose (GLUTOSE) 40 % gel 15 g 15 g, oral, As needed, low blood sugar, blood glucose less than 70 mg/dL, Starting on Wed02/08/25 at 2036, If patient conscious and taking PO. If blood glucose is not greater than 70 mg/dL after initial treatment, repeat treatment. dextrose 5 % (D5W) infusion 100 mL/hr, intravenous, Continuous PRN, blood glucose less than 70 mg/dL, Starting on Wed02/08/25 at 2036, For 1 day, Use immediately following dextrose 50% or glucagon treatment for patients who are unconscious or NPO. Contact prescriber for additional orders. If blood glucose is not greater than 70 mg/dL after initial treatment, repeat treatment. dextrose 50 % in water (D50W) 50% solution 25 mL 25 mL, intravenous, As needed, low blood sugar, blood glucose less than 70 mg/dL and unconscious or NPO with IV access, Starting on Imelda 02/08/25 at 2036, Push over 1-3 minutes STAT. If conscious and not NPO, immediately follow with meal tray or high protein (7 grams) snack if tray not available. If NPO, initiate 5% dextrose in water at 100 mL/hr and contact prescriber for additional orders. If blood glucose is not greater than 70 mg/dL after initial treatment, repeat treatment. VESICANT (RED) Warning: HYPERTONIC solution. glucagon HCL injection 1 mg 1 mg, intramuscular, As needed, low blood sugar, blood glucose less than 70 mg/dL and unconscious or NPO without IV access., Starting on Imelda 02/08/25 at 2036, If conscious and not NPO, immediately follow with meal tray or high protein (7Grams) snack if tray not available. If NPO, initiate IV 5% Dextrose/Water at 100 mL/hr and contact prescriber for additional orders. If blood glucose is not greater than 70 mg/dL after initial treatment, repeat treatment. hydrALAZINE (APRESOLINE) injection 10 mg 10 mg, intravenous, Every 6 hours PRN, high blood pressure, for SBP > 180, Starting on Imelda 02/08/25 at 2255, Look-alike/sound-alike medication - verify indication for use. Administer IV doses as a slow IV push; maximum rate: 5 mg/minute. 2334 (Not Given - Provider: Kate Patel RN - Reason: Order parameters not met) magnesium sulfate IVPB 2000 mg/50 mL in iso-osmotic water (40 mg/mL premix) 2,000 mg, intravenous, at 25 mL/hr, Administer over 120 Minutes, As needed, Magnesium level 1.7 to 1.9 mg/dL, or Ionized Magnesium level 0.45 to 0.5 mmol/L., Starting on Imelda 02/08/25 at 2036, Recheck magnesium level 4 hours after infusion complete. With each magnesium result continue the replacement orders as needed. magnesium sulfate IVPB 4000 mg/100 mL in iso-osmotic water (40 mg/mL premix) 4,000 mg, intravenous, at 25 mL/hr, Administer over 240 Minutes, As needed, Magnesium level 1.6 mg/dL or less, or Ionized Magnesium level 0.44 mmol/L or less, Starting on Imelda 02/08/25 at 2036, Recheck magnesium level 4 hours after infusion complete. With each magnesium result continue the replacement orders as needed. oxyCODONE (ROXICODONE) immediate release tablet 5 mg 5 mg, oral, Every 6 hours PRN, moderate pain - pain scale 4-6, Starting on Imelda 02/08/25 at 225, Look-alike/sound-alike medication - verify indication for use. Immediate release. 2346 (Given - Provider: Kate Patel, LUIS FELIPE) 0642 (Given - Provider: Kate Patel, LUIS FELIPE)1211 (Given - Provider: Meena Sanchez, RN) potassium chloride (KAYCIEL) 20 mEq/15 mL solution 30-50 mEq(Linked Group 2) 30-50 mEq, oral, As needed, Potassium Supplementation, Starting on Imelda 02/08/25 at 2039, Progress to oral potassium replacement when patient tolerating oral intake. If dose administered, recheck potassium level 4 hours after last dose. For potassium level 3.4 to 3.8 mmol/L and GFR 30 mL/min or greater=30 mEq. For potassium level 3.1 to 3.3 mmol/L and GFR 30 mL/min or greater=40 mEq. For potassium level 3 mmol/L or less and GFR 30 mL/min or greater=50 mEq. Must dilute before use - Mix in 3-8 ounces of water or juice before administration When administering in feeding tube, flush before and after per policy and monitor potassium levels 0155 (See Alternativ e - Provider: Kate Patel, LUIS FELIPE)0641 (See Alternative - Provider: Kate Patel, RN)1433 (See Alternative - Provider: Meena Sanchez, RN) potassium chloride (KLOR-CON M 20) CR tablet 30-50 mEq(Linked Group 2) 30-50 mEq, oral, As needed, Potassium Supplementation, Starting on Imelda 02/08/25 at 2039, Progress to oral potassium replacement when patient tolerating oral intake. If dose administered, recheck potassium level 4 hours after last dose. For potassium level 3.4 to 3.8 mmol/L and GFR 30 mL/min or greater=30 mEq. For potassium level 3.1 to 3.3 mmol/L and GFR 30 mL/min or greater=40 mEq. For potassium level 3 mmol/L or less and GFR 30 mL/min or greater=50 mEq. Do not crush or chew. 0155 (Given - Provid er: Kate Patel RN)0641 (Given - Provider: Kate Patel RN)1433 (Given - Provider: Meena Sanchez, LUIS FELIPE) potassium chloride IVPB 10 mEq/100 mL in water (0.1 mEq/mL premix)(Linked Group 2) 10 mEq, intravenous, at 100 mL/hr, Administer over 60 Minutes, As needed, POTASSIUM REPLACEMENT, Starting on Imelda 02/08/25 at 2039, IV if unable to use oral/enteral with the current dosing strategies Potassium level 3 mmol/L or less administer Potassium Chloride 50 mEq Potassium level 3.1 to 3.3 mmol/L administer Potassium Chloride 40 mEq Potassium level 3.4 to 3.8 mmol/L administer Potassium Chloride 30 mEq Use central line when applicable. Recheck potassium level 1 hour after total IVPB infusion complete, With each potassium result continue the replacement orders as needed VESICANT (YELLOW) Infuse each 10 mEq over a minimum of 1 hour. 0155 (See Alternativ e - Provider: Kate Patel RN)0641 (See Alternative - Provider: Kate Patel RN)1433 (See Alternative - Provider: Meena Sanchez, LUIS FELIPE) sodium chloride 0.9 % flush 3 mL 3 mL, intravenous, As needed, line care, before and after each intermittent use, Starting on Imelda 02/08/25 at 2036 sodium chloride 0.9 % flush bag 25 mL, intravenous, at 100 mL/hr, Administer over 15 Minutes, As needed, line care, line care after IVPB administration, Starting on Imelda 02/08/25 at 2036 sodium chloride 0.9 % infusion 20 mL/hr, intravenous, Continuous PRN, to maintain patency of lines, Starting on Imelda 02/08/25 at 2036, For 1 day Linked Groups Order Group 1: fluticasone furoate-vilanteroL (BREO ELLIPTA) 100-25 mcg/dose inhaler 1 puffJump to med 1 puff, inhalation, Daily, First dose on Wed02/09/25 at 1000, Administer fluticasone furoate-vilanterol (BREO ELLIPTA) 100-25 mcg/dose inhaler in addition to umeclidinium (INCRUSE ELLIPTA) 62.5 mcg/dose inhaler as a replacement for atpvnjpwbbf-lmiukmughlwv-msvrsgonbg (TRELEGY ELLIPTA) inhaler 100-62.5-25 mcg/dose. And umeclidinium (INCRUSE ELLIPTA) 62.5 mcg/actuation inhaler 1 puffJump to med 1 puff, inhalation, Daily, First dose on Wed02/09/25 at 1000, Administer umeclidinium (INCRUSE ELLIPTA) 62.5 mcg/dose inhaler in addition to fluticasone furoate- vilanterol (BREO ELLIPTA) 100-25 mcg/dose inhaler as a replacement for jyfrycghkxu-cyxrmiwvikrf-jgrtwyjehx (TRELEGY ELLIPTA) inhaler 100-62.5-25 mcg/dose. Do not shake inhaler. Group 2: potassium chloride (KLOR-CON M 20) CR tablet 30-50 mEqJump to med 30-50 mEq, oral, As needed, Potassium Supplementation, Starting on Wed02/08/25 at 2039, Progress to oral potassium replacement when patient tolerating oral intake. If dose administered, recheck potassium level 4 hours after last dose. For potassium level 3.4 to 3.8 mmol/L and GFR 30 mL/min or greater=30 mEq. For potassium level 3.1 to 3.3 mmol/L and GFR 30 mL/min or greater=40 mEq. For potassium level 3 mmol/L or less and GFR 30 mL/min or greater=50 mEq. Do not crush or chew. Or potassium chloride (KAYCIEL) 20 mEq/15 mL solution 30-50 mEqJump to med 30-50 mEq, oral, As needed, Potassium Supplementation, Starting on Wed02/08/25 at 2039, Progress to oral potassium replacement when patient tolerating oral intake. If dose administered, recheck potassium level 4 hours after last dose. For potassium level 3.4 to 3.8 mmol/L and GFR 30 mL/min or greater=30 mEq. For potassium level 3.1 to 3.3 mmol/L and GFR 30 mL/min or greater=40 mEq. For potassium level 3 mmol/L or less and GFR 30 mL/min or greater=50 mEq. Must dilute before use - Mix in 3-8 ounces of water or juice before administration When administering in feeding tube, flush before and after per policy and monitor potassium levels Or potassium chloride IVPB 10 mEq/100 mL in water (0.1 mEq/mL premix)Jump to med 10 mEq, intravenous, at 100 mL/hr, Administer over 60 Minutes, As needed, POTASSIUM REPLACEMENT, Starting on [place] 02/08/25 at 2040, IV if unable to use oral/enteral with the current dosing strategies Potassium level 3 mmol/L or less administer Potassium Chloride 50 mEq Potassium level 3.1 to 3.3 mmol/L administer Potassium Chloride 40 mEq Potassium level 3.4 to 3.8 mmol/L administer Potassium Chloride 30 mEq Use central line when applicable. Recheck potassium level 1 hour after total IVPB infusion complete, With each potassium result continue the replacement orders as needed VESICANT (YELLOW) Infuse each 10 mEq over a minimum of 1 hour. FOR RECORDS PERTAINING TO PATIENTS WHO ARE [...] BE BASED ON THE PRIMARY CLINICAL RECORDS. [employer] provides no warranty or guarantee of the accuracy or completeness of information in this document.
== END 2025-04-05 09:41 | disposition home or self-care (01) ==
LOC: PST 09:42
PROVIDERS: PCP Family Medicine; Visit Provider Obstetrics & Gynecology
DX: Z01.818 Encounter for other preprocedural examination (principal); R10.2 Pelvic and perineal pain

== ENCOUNTER 2025-04-13 09:02 | Day surgery (SDC) | payer OTHER, SELFPAY ==
[2025-04-05 10:14] VITALS: BP 121/81; PULSE 68; TEMP 36.4; O2SAT 100; BMI 26.5
[2025-04-13 09:15] VITALS: BP 141/86; PULSE 72; TEMP 36.4; O2SAT 100; BMI 26.0
[2025-04-13 09:22] LABS: Hematocrit 45.1 % (36.0-48.0); Hemoglobin 15.4 g/dL (12.0-16.0); Immature Granulocytes Abs Auto 0.03 10^3/uL (0.00-0.03); Immature Granulocytes Pct Auto 0.4 % (0.0-0.5); Lymphocytes Absolute Auto 2.7 10^3/uL (1.2-3.8); Mean Corpuscular HGB Conc 34.1 g/dL (29.9-35.2); Mean Corpuscular Hemoglobin 29.7 pg (26.7-34.0); Mean Corpuscular Volume 87.1 fL (81.0-99.0); Platelet Count 225 10^3/uL (150-450); Potassium 3.7 mmol/L (3.5-5.1); Red Blood Count 5.18 10^6/uL (4.20-5.40); White Blood Count 8.2 10^3/uL (4.0-11.0)
--- OUTSIDE RECORDS SUMMARY | 2025-04-13 09:22 | XMS_ITS | CCD ---
Author Organization [facility] Care Team Providers Care Endocrinologist Name Role Phone AlonsoKati Unavailable Casa Wahl Unavailable Unknown, Referring Provider Unavailable Unav ailable Unavailable Unavailable [facility] Primary Care Unavailable BALJIT ., DR MORALES Attending Unavailable BALJIT ., DR MORALES Admitting Unavailable DIAZ, ELAN Consulting Unavailable [facility] Primary Care Unavailable BALJIT ., DR MORALES Consulting Unavailable BALJIT ., DR MORALES Attending Unavailable BALJIT ., DR MORALES Admitting Unavailable [facility] Primary Care Unavailable BALJIT ., DR MORALES [...] Unavailable YONNY, DR OLIVEIRA Primary Care Unavailable [facility] Primary Care Unavailable BALJIT ., DR MORALES Attending Unavailable BALJIT ., DR MORALES Admitting Unavailable BALJIT ., DR MORALES Admitting Unavailable BALJIT ., DR MORALES Attending Unavailable [facility] Primary Care Unavailable LAMONT, DR KATI Moore Consulting Unavailable BALJIT ., DR MORALES Consulting Unavailable [facility] Primary Care Unavailable BALJIT ., DR MORALES [...] REQUEST, DR DUFFY LISTED Consulting Unavaila ble HYISAAC PEACE, KATI Bloom Attending Unavailable HYKES JR, KATI Bloom Admitting Unavailable [facility] Primary Care Unavailable HYKES JR, KATI Bloom Consulting Unavailable [facility] Care Unavailable BALJIT ., DR MORALES [...] Care Unavailable JED RODRIGUEZ Consulting Unavailable LORRI HORTON Consulting Unavailable SEAMON, CRISTINA Bloom Consulting Unavailable [facility] Care Unavailable BALJIT ., DR MORALES [...] Primary Care Provider Imelda Blancas MD, Tee Dominguez Primary Care Provider [phone] NO FAMILY, PHYSICIAN Primary Care Provider Unava MD Kati Franklin V Attending Provider Tee Blancas MD Primary Care Provider Tessy Gonzales HUDSON Unavailable Unava ilable Dilia Cleary DO Emergency Provider NO FAMILY, PHYSICIAN Primary Care Provider Unava [...] Provider Tee Blancas MD Primary Care Provider YONNY, RUGEN M Primary Care Unavailable YONNY, RUGEN M Primary Care Unavailable SPENSER BARROSO Attending Unavailable SPENSER BARROSO Attending Unavailable SPENSER BARROSO Referring Unavailable YONNY, RUGEN M Primary Care Unavailable YNONY, RUGEN M Primary Care Unavailable CAROLINE SYED [...] FAMILY, PHYSICIAN Primary Care Unavailable HEMMICHAEL, MINOO Dominguez Attending Unavailable KARINA-MORIN, RHANDA Attending Unavailab le [...] Unavailable BALJIT, TIMMY Attending Unavailable YONNY, TEE Dominguez Attending Unavailable BALJIT, TIMMY Attending Unavailable Ulisses Serrano Attending Unavailable FABIAN COCHRAN Referring Unavailable BAILEE FULLER Attending Unavailable SARAH, FABIAN Attending Unavailable Allergies Allergy Classification Reported Allergen(s) Allergy Type Date of Onset Reaction(s) Facility (12 sources) ALPRAZolam; Translations: [ALPRAZOLAM] Drug Allergy Unknown, Itching [facility] (5 sources) Codeine Drug Allergy rash [place] [employer] Other (20 sources) FLUoxetine; Translations: [FLUOXETINE] Drug Allergy Unknown, Unknown Reaction [facility] (20 sources) hydrOXYzine; Translations: [HYDROXYZINE] Drug Allergy Unknown [facility] Other (20 sources) methylPREDNISolone; Translations: [METHYLPREDNISOLONE] Drug Allergy Rash [facility] [employer] Other (20 sources) metroNIDAZOLE; Translations: [Flagyl] Drug Allergy 07-02-2 020 hives, Rash Theravasc Other (1 source) Acetaminophen / HYDROcodone Drug Allergy [facility] Repository (1 source) busPIRone Drug Allergy [facility] Repository (4 sources) Codeine; Translations: [CODEINE] Drug Allergy rash [facility] Repository (1 source) hydrOXYzine Drug Allergy [facility] Repository (2 sources) methylPREDNISolone Drug Allergy The [facility] Repository (6 sources) metroNIDAZOLE; Translations: [Flagyl] Drug Allergy [facility] Repository (2 sources) Nitrous Oxide Drug Allergy [facility] Repository (2 sources) rescinnamine Drug Allergy [facility] Repository (20 sources) Alprazolam Allergy to substance 023 Itching [facility] Healthcare Work Phone: (20 sources) Bisacodyl; Translations: [BISACODYL] Drug Allergy Rash [facility] Healthcare (20 sources) busPIRone; Translations: [BUSPIRONE] Drug Allergy Unknown [facility] Healthcare (20 sources) Basil Oil Allergy to substance [facility] Healthcare (15 sources) basil allergenic extract; Translations: [BASIL] Drug Allergy Numbness [facility] (20 sources) Codeine Drug Allergy Rash [facility] (13 sources) hydrOXYzine; Translations: [HYDROXYZINE PAMOATE] Drug Allergy 021 [facility] (5 sources) predniSONE; Translations: [prednisone] Drug Allergy Itch [facility] (4 sources) No Known Medication Allergies; Translations: [No Known Medication Allergies] Propensity to adverse reactions (disorder) [facility] Repository (1 source) busPIRone Drug Allergy [facility] Repository (1 source) FLUoxetine Drug Allergy [facility] Repository (1 source) hydrOXYzine Drug Allergy [facility] Repository (1 source) methylPREDNISolone Drug Allergy [facility] Repository (1 source) metroNIDAZOLE Drug Allergy [facility] Repository Medications Current Medications Medication Drug Class(es) Dates Sig (Normalized) Sig (Original) acetaminophen 325 mg oral tablet (7 sources) Start: 02-08-2025 take 1 tablet by mouth every six hours as needed for pain and headache and fever 650 mg, oral, Every 6 hours PRN, mild pain - pain scale 1-3, headaches, temperature greater than 38 C, Starting on Wed02/08/25 at 2039 Start: 02-08-2025 End: 02-08-2025 1,000 mg, intravenous, at 40 0 mL/hr, Administer over 15 Minutes, Once, On Imelda 02/08/25 at 1905, For 1 dose take 1 tablet by freda th every four hours Tylenol 325 MG 1 [...] 4 (four) hours as needed. 05/22/2024 Active amitriptyline hydrochloride 25 mg oral tablet [...] Discontinued 500 MG PO Three times daily 26 02April 25, 2018 12:00am May 01, 2018 12:00am [...] every week ergocalciferol (Vitamin D-2) 1.25 MG (91673 UT) capsule Indications: Vitamin D deficiency Take [...] take 1 puff(s) by inhalation once daily Ucdiwxjsypd-Xpnkszaxm-Xyccue (Trelegy Ellipta) 100-62.5-25 MCG/ACT aerosol powder Indications: Acute asthma (HCC) Inhale 1 puff Daily 60 each 5 09/23/2024 Active fluticasone furoate-vilanteroL (BREO ELLIPTA) 100-25 mcg/dose inhaler 1 puff (1 source) Start: 07-04-2025 fluticasone furoate-vilanteroL (BREO ELLIPTA) 100-25 mcg/dose inhaler [...] 08/17/2023 Active lidocaine 0.05 mg/mg medicated patch (7 sources) Antiarrhythmic, Amide Local Anesthetic Start: 12-13-2024 apply 1 dose transdermal route every twelve hours in the morning lidocaine (LIDODERM) 5 % Place 1 patch on the skin in the morning. Remove & Discard patch within 12 hours or as directed by . 30 patch 12/13/2024 Active linaclotide 0.145 mg oral capsule (20 sources) Guanylate Cyclase-C Agonist Start: 12-28-2024 End: 02-14-2026 take 1 capsule by mouth before mealtime linaCLOtide (Linzess) 145 MCG capsule Indications: Drug-induced constipation Take 1 capsule (145 mcg) by mouth in the morning. Take before meals. Do not crush or chew. 30 capsule 11 02/14/2025 02/14/2026 Active lisinopril 10 mg oral tablet (20 sources) Angiotensin Converting Enzyme Inhibitor Start: 02-09-2025 End: 04-10-2025 take 1 tablet by mouth in the morning lisinopril 10 MG tablet Indications: Irregular heart rhythm , Primary hypertension Take 1 tablet (10 mg) by mouth in the morning. 100 tablet 3 04/10/2025 Active LORazepam 0.5 mg oral tablet (20 [...] succinate 25 mg extended release oral tablet (19 sources) beta-Adrenergic Itzel Start: 02-22-2025 take 1 [...] (NARCAN) 4 mg/actua tion spray,non-aerosol nasal spray (7 sources) Start: 12-12-2024 naloxone (NARC AN) 4 [...] scale 4-6, Starting on Imelda 02/08/25 at 2259, Look-alike/sound-alike medication - verify [...] chloride 10 meq extended release oral capsule (20 sources) Start: 02-22-2025 take 2 capsules by [...] Minutes, Every 1 hour, First dose on [facility] 02/08/25 at 1900, For 2 doses, VESICANT (YELLOW) Infuse each 10 mEq over a minimum of 1 hour. Start: 02-08-2025 End: 02-08-2025 40 mEq, oral, Once, On Imelda at 1900, For 1 dose, Do not [...] Active Start: 08-30-2023 take 1 capsule by mo ut twice daily pregabalin (Lyrica) 75 MG capsule Indications: Fibromyalgia take 1 capsule by mouth twice a day 60 capsule 0 08/30/2023 Active sennosides, jail 8.6 mg oral tablet (4 sources) Start: [...] to maintain patency of lines, Starting on [facility] 02/08/25 at 2036, For 1 day Start: 02-08-2025 take 25 mL intraveno usly every hour as needed 25 mL, intravenous, at 100 mL/hr, Administer over 15 Minutes, As needed, line care, line care after IVPB administration, Starting on [facility] 02/08/25 at 2036 sucralfate 1000 mg oral [...] every eight hours as needed for pain Hydrocodone-Acetami nophen 5-325 mg tablet Discontinued 1 TAB PO Q8H as needed for pain 9 3 December 31, 2020 February 22, 2025 2:36pm ALPRAZolam 0.5 mg oral tablet (20 sources) Benzodiazepine Start: 02-15-2025 End: 05-10-2025 take 1 tablet by mouth in the morning ALPRAZolam (Xanax) 0.5 MG tablet Indications: Anxiety Take 1 tablet (0.5 mg) by mouth in the morning and 1 tablet (0.5 mg) before bedtime. 60 tablet 03/19/2025 04/10/2025 Discontinued (Reorder) Start: 01-02-2025 End: 01-11-2025 take 2 tablets [...] mg) before bedtime. 60 tablet 01/11/2025 Active amylase 937183 unt / lipase 12492 unt / protease [id number] unt delayed release oral capsule (1 source) Start: 10-28-2020 End: 12-31-2020 take 78128-054406 capsules by mouth three times daily Fdxkfo-Xtjvkyip-Rzvulea (Zenpep) 40,000-126,000- 168,000 unit Capsule,Delayed Release(Dr/Ec) Discontinued [...] Look-alike/sound-alike medication - verify indication for use. escitalopram [...] mg tablet Discontinued 500 MG PO Daily 5 April 21, 2018 12:00am April 25, 2018 12:00am April 25, 2018 4:48pm Bzpmzb-Oyjcnecw-R mylase (Zenpep) 40,000-126,000- 168,000 unit Capsule,Delayed Release(Dr/Ec) (2 sources) Start: 10-28-2020 End: 12-31-2020 take 51045-84701 0 capsules by mouth three times daily Ygjqbc-Gqhsjzju-Adfbbbt (Zenpep) 40,000-126,000- 168,000 unit Capsule,Delayed Release(Dr/Ec) Discontinued [...] End: 02-08-2025 4 mg, intravenous, Once, On Imelda 02/08/25 [...] unspecified] 09-06-2023 Episodic Nephritis; nephrosis; renal sclerosis (16 sources) Atrophy of right kidney; 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)] Onset: 5 02-15-2025 Chronic Nonspecific chest pain (3 sources) Chest pain, unspecified; Translations: [Other chest pain] Onset: 5 Episodic Other acquired deformities (1 source) Finding of nasal deformity; Translations: [Acquired deformity of nose] Episodic Other aftercare (5 sources) Other prison (current) drug therapy; Translations: [OTH HALFWAY CURRENT DRUG THERAPY] Onset: 2 Episodic Other endocrine disorders (20 sources) Hypoglycemia; [...] UNSPECIFIED] Onset: 2 Episodic Other gastrointestinal disorders (15 sources) Slow transit constipation; Translations: [Slow transit [...] [Allergy, unspecified, subsequent encounter] 10-09-2024 Episodic Other nervous system disorders (1 source) [...] unspecified] Onset: 12-14-2024 12-14-2024 Episodic Mood disorders (11 sources) Mood disorders; Translations: [Depression, unspecified] Onset: [...] Translations: [Fibromyalgia] Onset: 01-19-2023 01-19-2023 Episodic Other connective tissue disease (20 sources) Pain of left hand; Translations: [Pain in left hand] Onset: 12-28-2024 12-28-2024 Episodic Other female genital disorders (5 sources) [...] 01-01-2022 Resolved: 01-01-2022 Episodic Other gastrointestinal disorders (20 sources) Drug-induced constipation; Translations: [Drug induced constipation] Onset: 12-28-2024 12-28-2024 Episodic Other injuries and conditions due to external causes (20 sources) History of clinical finding in subject; Translations: [History of non-suicidal self-harm] Onset: 10-10-2024 10-10-2024 Episodic Other injuries and conditions due to external causes (20 sources) Injury of left hand; Translations: [Unspecified injury of left wrist, hand and finger(s), initial encounter] Onset: 12-28-2024 12-28-2024 Episodic Other nervous system disorders (1 source) Other acute postprocedural pain; Translations: [OTHER ACUTE POSTPROCEDURAL PAIN] Onset: 08-05-2022 Episodic Other nutritional; endocrine; and metabolic disorders (1 source) Anorexia; Translations: [Loss of appetite R63.0] Onset: 05-06-2021 Resolved: 05-06-2021 Episodic Other nutritional; endocrine; and metabolic disorders (20 sources) Weight loss; Translations: [Abnormal weight loss] Onset: 01-18-2024 04-22-2018 Episodic Other nutritional; endocrine; and metabolic disorders (15 sources) Unintentional weight loss; Translations: [Abnormal weight [...] Test Name Value Interpretation Reference Range Facility CORTISOL, FREE 24-HOUR URINE LC/MS/MSon 04-03-2025 CORTISOL, FREE, URINE 40.9 mcg/24 h Normal 4.0-50.0 [facility] Comment on above: Order Comment: URINE VOLUME: 2500/24 Result Comment: This test was developed and its analytical performance characteristics have been determined by [facility]. It has not been cleared or approved by the FDA. This assay has been validated pursuant to the CLIA regulations and is used for clinical purposes. Performed By: #### 1 1280 #### [facility], [address] [place] [address] Clock Repair Technician: Es Cha MD,PhD,CECILY CREATININE, URINE 1.58 g/24 h Normal 0.50-2.15 [facility] Comment on above: Order Comment: URINE VOLUME: 2500/24 Performed By: #### 1 1280 #### [facility], [address] [place] [address] Clock Repair Technician: Es Cha MD,PhD,CECILY TOTAL VOLUME 2500 mL Normal [facility] Comment on above: Order Comment: URINE VOLUME: 2500/24 Performed By: #### 1 1280 #### [facility], [address] [place] [address] Clock Repair Technician: Es Cha MD,PhD,CECILY Office Visiton 03-20-2025 Follow-up visit [id number] Misty Elliott 1995 F Date Provider Department Center 03/20/2025 BAILEE [facility] Family History Problem Relation Age of Onset Diabetes Maternal Grandmother Lupus Maternal Grandmother Kidney disease Maternal Grandmother Von Willebrand disease Son Family Status - Relation Status Age at Mother Alive Father Alive Maternal Grandmother Son Alive Level of Service:30895 DC OFFICE/OUTPATIENT NEW MODERATE MDM 45 MINUTES Normal [facility] Orders Onlyon 03-20-2025 Orders Only [id number] Misty Elliott 1995 F Date Provider Department Center 03/20/2025 [id number], HISTORICAL CARD [facility] Family History Problem Relation Age of Onset Diabetes Maternal Grandmother Lupus Maternal Grandmother Kidney disease Maternal Grandmother Von Willebrand disease Son Family Status - Relation Status Age at Mother Alive Father Alive Maternal Grandmother Son Alive Normal [facility] COMPREHENSIVE METABOLIC PANE Jaison 03-02-2025 Albumin [Mass/Vol] 4.4 g/dL Normal 3.6-5.1 [facility] Comment on above: Performed By: #### 1 1211 #### [facility] [address] Clock Repair Technician: Manuel Azar MD Albumin/Globulin [Mass ratio] 1.6 {ratio} Normal 1.0-2.5 [facility] Comment on above: Performed By: #### 1 0231 #### [facility] [address] Clock Repair Technician: Manuel Azar MD ALP [Catalytic activity/Vol] 73 U/L Normal 31-125 [facility] Comment on above: Performed By: #### 1 0231 #### [facility] [place] [address] Clock Repair Technician: Manuel Azar MD ALT [Catalytic activity/Vol] 15 U/L Normal 6-29 [facility] Comment on above: Performed By: #### 1 0231 #### [facility] [place] [address] Clock Repair Technician: Manuel Azar MD AST [Catalytic activity/Vol] 14 U/L Normal 10-30 [facility] Comment on above: Performed By: #### 1 0231 #### [facility] [place] [address] Clock Repair Technician: Manuel Azar MD Bilirubin [Mass/Vol] 0.4 mg/dL Normal 0.2-1.2 [facility] Comment on above: Performed By: #### 1 1 #### [facility] [place] [address] Clock Repair Technician: Manuel Azar MD BUN/CREATININE RATIO SEE NOTE: Normal 6-22 [facility] Comment on above: Result Comment: Not Reported: BUN and Creatinine are within reference range. Performed By: #### 1 1 #### [facility] [place] [address] Clock Repair Technician: Manuel Azar MD Calcium [Mass/Vol] 9.7 mg/dL Normal 8.6-10.2 [facility] Comment on above: Performed By: #### 1 0231 #### [facility] [place] [address] Clock Repair Technician: Manuel Azar MD Chloride [Moles/Vol] 107 mmol/L Normal 98-110 [facility] Comment on above: Performed By: #### 1 0231 #### [facility] [place] [address] Clock Repair Technician: Manuel Azar MD CO2 [Moles/Vol] 22 mmol/L Normal 20-32 [facility] Comment on above: Performed By: #### 1 1 #### [facility] [address], [address] [place] [address] Clock Repair Technician: Manuel Azar MD Creatinine [Mass/Vol] 0.74 mg/dL Normal 0.50-0.96 [facility] Comment on above: Performed By: #### 1 0231 #### [facility] [address], [address] [place] [address] Clock Repair Technician: Maneul Azar MD GFR/1.73 sq M.predicted among non-blacks MDRD (S/P/Bld) [Vol rate/Area] 114 mL/min/{1.73_m2} Normal > OR = 60 [facility] Comment on above: Performed By: #### 1 0231 #### [facility] [address], [address] [place] [address] Clock Repair Technician: Manuel Azar MD Globulin (S) [Mass/Vol] 2.7 g/dL Normal 1.9-3.7 [facility] Comment on above: Performed By: #### 1 0231 #### [facility] [place] [address] Clock Repair Technician: Manuel Azar MD Glucose [Mass/Vol] 112 mg/dL High 65-99 [facility] Comment on above: Result Comment: Fasting reference interval For someone without known diabetes, a glucose value between 100 and 125 mg/dL is consistent with prediabetes and should be confirmed with a follow-up test. Performed By: #### 1 0231 #### [facility] [address], [address] [place] [address] Clock Repair Technician: Manuel Azar MD Potassium [Moles/Vol] 4.0 mmol/L Normal 3.5-5.3 [facility] Comment on above: Performed By: #### 1 0231 #### [facility] [address], [address] [place] [address] Clock Repair Technician: Manuel Azar MD Protein [Mass/Vol] 7.1 g/dL Normal 6.1-8.1 [facility] Comment on above: Performed By: #### 1 0231 #### [facility] [address], [address] Clock Repair Technician: Manuel Azar MD Sodium [Moles/Vol] 138 mmol/L Normal 135-146 [facility] Comment on above: Performed By: #### 1 0231 #### [facility] [address], [address] [place] [address] Clock Repair Technician: Manuel Azar MD Urea nitrogen [Mass/Vol] 12 mg/dL Normal 7-25 [facility] Comment on above: Performed By: #### 1 0231 #### [facility] [address] , [address] [place] [address] Clock Repair Technician: Manuel Azar MD [facility] GENERIC ORDER #1on 07-2 TEST RESULT SEE NOTE Normal [facility] Comment on above: Result Comment: Test name [...] reference intervals for this test in the [facility] Laboratory Test Directory ([employer]). Renin Activity 53.0 ng/mL/hr Specimen diluted and [...] developed and its performance characteristics determined by [facility]. It has not been cleared or approved [...] is greater than 15 ng/dL. Performed By: [facility] [address] [place] [address] Immigration Attorney: Car Ramos MD, PhD CLIA Number: [id number] Performed By: #### A GO ####[facility] ([facility])[address] [place] [address] VIR BASIC METABOLIC PANELon 07-2 Anion gap [Moles/Vol] 9 mmol/L Normal 5-15 [facility] Comment on above: Performed By: #### D DMR #### [facility] ([address] [address] VIR Calcium [Mass/Vol] 9.4 mg/dL Normal 8.5-10.5 [facility] Comment on above: Performed By: #### D DMR #### [facility] ([address] [address] VIR Chloride [Moles/Vol] 108 mmol/L Normal 98-109 [facility] Comment on above: Performed By: #### D DMR #### [facility] ([address] [address] VIR CO2 [Moles/Vol] 21 mmol/L Low 22-32 [facility] Comment on above: Performed By: #### D DMR #### [facility] ([address] [address] VIR Creatinine [Mass/Vol] 0.78 mg/dL Normal 0.40-1.00 [facility] Comment on above: Result Comment: METH OD TRACEABLE TO IDMS STANDARD Performed By: #### D DMR #### [facility] ([address] [address] VIR EGFR (CKD-EPI) NON-RACE DEPENDENT >^90 Normal >=60 [facility] Comment on above: Result Comment: Repo rted eGFR is based on the CKD-EPI 2020 equation that does not use a race coefficient. Performed By: #### D DMR #### [facility] ([facility]) [address] [place] [address]. [place] [address] VIR Glucose [Mass/Vol] 54 mg/dL Low 65-99 [facility] Comment on above: Performed By: #### D DMR #### [facility] ([address] [place] [address] VIR Potassium [Moles/Vol] 4.4 mmol/L Normal 3.5-5.0 [facility] Comment on above: Performed By: #### D DMR #### [facility] ([address] [place] [address] VIR Sodium [Moles/Vol] 138 mmol/L Normal 134-146 [facility] Comment on above: Performed By: #### D DMR #### [facility] ([address] [place] [address] VIR Urea nitrogen [Mass/Vol] 13 mg/dL Normal 5-23 [facility] Comment on above: Performed By: #### D DMR #### [facility] ([address] [address] VIR CORTISOLon 02-26-2025 CORTISOL, TOTAL 5.8 ug/dL Normal [facility] Comment on above: Order Comment: Due t o the diurnal variation of cortisollevels in normal subjects, all cortisolmeasurments should be referenced to thetime of day of sample collection.AM Cortisol Age>=6 6.7-22.4 ug/dLPM Cortisol Age>=6 <10 ug/dL Performed By: #### C ORT ####[facility] (TT)[address] [facility] [address], [place] [address] VIR METANEPHRINES, FRACTIONATED, FREE, PLASMAon 02-26-2025 METANEPHRINE, FREE <0.20 Normal <0.50 [facility] Comment on above: Result Comment: ADDITIONAL INFORMATION This test was developed and its performance characteristics determined by [facility] in a manner consistent with CLIA requirements. This test has not been cleared or approved by the U.S. Food and Drug Administration. Test Performed by: [facility] [address] [place] [address] Landscape Laborer: Tahira Grossman Ph.D.; CLIA# [id number] Performed By: #### P MET ####[facility] (SDL)[address] [place] [address] VIR NORMETANEPHRINE FREE 0.43 nmol/L Normal <0.90 [facility] Comment on above: Performed By: #### P MET ####[facility] (SDL)[address] [place] [address] VIR UNLISTED LAB TESTon 02-27-20 25 LOOK Sent to [facility]. Normal [facility] Comment on above: Performed By: #### D DMR #### [facility] ([address] [address] VIR CBC (H/H, RBC, INDICES, WBC, PLT)on 02-16-2025 Erythrocyte distribution width (RBC) [Ratio] 14.3 % Normal 11.0-15.0 [facility] Comment on above: Performed By: #### 1 113, 91177 #### [place] [address] Clock Repair Technician: Manuel Azar MD Hematocrit (Bld) [Volume fraction] 43.4 % Normal 35.0-45.0 [facility] Comment on above: Performed By: #### 1 567, 03597 #### [facility] [address], [address] [place] [id number] Clock Repair Technician: Manuel Azar MD Hemoglobin (Bld) [Mass/Vol] 13.9 g/dL Normal 11.7-15.5 [facility] Comment on above: Performed By: #### 1 829, 37560 #### [facility] of [place] [address] Clock Repair Technician: Manuel Azar MD MCH (RBC) [Entitic mass] 28.8 pg Normal 27.0-33.0 [facility] Comment on above: Performed By: #### 1 759, 69286 #### [facility] of [place] [address] Clock Repair Technician: Manuel Azar MD MCHC (RBC) [Mass/Vol] 32.0 [...] clinical condition. Performed By: #### 1 759, 50149 #### [facility] [place] [address] Clock Repair Technician: Manuel Azar MD MCV (RBC) [Entitic vol] 89.9 fL Normal 80.0-100.0 [facility] Comment on above: Performed By: #### 1 759, 97113 #### [facility] of [place] [address] Clock Repair Technician: Manuel Azar MD Platelet mean volume (Bld) [Entitic vol] 12.3 fL Normal 7.5-12.5 [facility] Comment on above: Performed By: #### 1 759, 79140 #### [facility] of [place] [address] Clock Repair Technician: Manuel Azar MD Platelets (Bld) [#/Vol] 294 10*3/uL Normal 140-400 [facility] Comment on above: Performed By: #### 1 759, 75741 #### [facility] [place] [address] Clock Repair Technician: Manuel Azar MD RBC (Bld) [#/Vol] 4.83 10*6/uL Normal 3.80-5.10 [facility] Comment on above: Performed By: #### 1 759, 88768 #### [facility] of [place] [address] Clock Repair Technician: Manuel Azar MD WBC (Bld) [#/Vol] 7.6 10*3/uL Normal 3.8-10.8 [facility] Comment on above: Performed By: #### 1 759, 86094 #### [facility] of [place] [address] Clock Repair Technician: Manuel Azar MD [facility] 02-16-2025 Albumin [Mass/Vol] 4.4 g/dL Normal 3.6-5.1 [facility] Comment on above: Order Comment: FASTI NG:YESFASTING: YES Performed By: #### 1 499, 24663 #### [facility] of [place] [address] Clock Repair Technician: Manuel Azar MD Albumin/Globulin [Mass ratio] 1.9 {ratio} Normal 1.0-2.5 [facility] Comment on above: Order Comment: FASTI NG:YESFASTING: YES Performed By: #### 1 749, 58490 #### [facility] of [place] [address] Clock Repair Technician: Manuel Azar MD ALP [Catalytic activity/Vol] 71 U/L Normal 31-125 [facility] Comment on above: Order Comment: FASTI NG:YESFASTING: YES Performed By: #### 1 609, 33454 #### [facility] [place] [address] Clock Repair Technician: Manuel Azar MD ALT [Catalytic activity/Vol] 57 U/L High 6-29 [facility] Comment on above: Order Comment: FASTI NG:YESFASTING: YES Performed By: #### 1 319, 41196 #### [facility] of [address] [place] [address] Clock Repair Technician: Manuel Azar MD AST [Catalytic activity/Vol] 34 U/L High 10-30 [facility] Comment on above: Order Comment: FASTI NG:YESFASTING: YES Performed By: #### 1 339, 70460 #### [facility] [address], [address] [place] [address] Clock Repair Technician: Manuel Azar MD Bilirubin [Mass/Vol] 0.4 mg/dL Normal 0.2-1.2 [facility] Comment on above: Order Comment: FASTI NG:YESFASTING: YES Performed By: #### 1 539, 71854 #### [facility] [place] [address] Clock Repair Technician: Manuel Azar MD BUN/CREATININE RATIO SEE NOTE: Normal 6-22 [facility] Comment on above: Order Comment: FASTI NG:YESFASTING: YES Result Comment: Not Reported: BUN and Creatinine are within reference range. Performed By: #### 1 189, 33867 #### [facility] [address], [address] [place] [address] Clock Repair Technician: Manuel Azar MD Calcium [Mass/Vol] 9.6 mg/dL Normal 8.6-10.2 [facility] Comment on above: Order Comment: FASTI NG:YESFASTING: YES Performed By: #### 1 264, 32501 #### [facility] [address], [address] [place] [address] Clock Repair Technician: Manuel Azar MD Chloride [Moles/Vol] 104 mmol/L Normal 98-110 [facility] Comment on above: Order Comment: FASTI NG:YESFASTING: YES Performed By: #### 1 709, 49344 #### [facility] [address], [address] [place] [address] Clock Repair Technician: Manuel Azar MD CO2 [Moles/Vol] 26 mmol/L Normal 20-32 [facility] Comment on above: Order Comment: FASTI NG:YESFASTING: YES Performed By: #### 1 759, 64508 #### [facility] [place] [address] Clock Repair Technician: Manuel Azar MD Creatinine [Mass/Vol] 0.63 mg/dL Normal 0.50-0.96 [facility] Comment on above: Order Comment: FASTI NG:YESFASTING: YES Performed By: #### 1 759, 87515 #### [facility] [place] [address] Clock Repair Technician: Manuel Azar MD GFR/1.73 sq M.predicted among non-blacks MDRD (S/P/Bld) [Vol rate/Area] 125 mL/min/{1.73_m2} Normal > OR = 60 [facility] Comment on above: Order Comment: FASTI NG:YESFASTING: YES Performed By: #### 1 299, 03957 #### [facility] [place] [address] Clock Repair Technician: Manuel Azar MD Globulin (S) [Mass/Vol] 2.3 g/dL Normal 1.9-3.7 [facility] Comment on above: Order Comment: FASTI NG:YESFASTING: YES Performed By: #### 1 519, 94839 #### [facility] [place] [address] Clock Repair Technician: Manuel Azar MD Glucose [Mass/Vol] 88 mg/dL Normal 65-99 [facility] Comment on above: Order Comment: FASTI NG:YESFASTING: YES Result Comment: Fasting reference interval Performed By: #### 1 259, 65715 #### [facility] [place] [address] Clock Repair Technician: Manuel Azar MD Potassium [Moles/Vol] 3.6 mmol/L Normal 3.5-5.3 [facility] Comment on above: Order Comment: FASTI NG:YESFASTING: YES Performed By: #### 1 629, 75989 #### [facility] [address] [place] [address] Clock Repair Technician: Manuel Azar MD Protein [Mass/Vol] 6.7 g/dL Normal 6.1-8.1 [facility] Comment on above: Order Comment: FASTI NG:YESFASTING: YES Performed By: #### 1 759, 52726 #### [facility] [place] [address] Clock Repair Technician: Manuel Azar MD Sodium [Moles/Vol] 137 mmol/L Normal 135-146 [facility] Comment on above: Order Comment: FASTI NG:YESFASTING: YES Performed By: #### 1 759, 05738 #### [facility] [place] [address] Clock Repair Technician: Manuel Azar MD Urea nitrogen [Mass/Vol] 12 mg/dL Normal 7-25 [facility] Comment on above: Order Comment: FASTI NG:YESFASTING: YES Performed By: #### 1 759, 73248 #### [facility] [address], [address] [place] [address] Clock Repair Technician: Manuel Azar MD TSH W/REFLEX TO FT4on 2024 TSH W/REFLEX TO FT4 1.95 mIU/L Normal [facility] Comment on above: Result Comment: Refe rence Range > or = 20 Years 0.40-4.50 Ranges First trimester 0.26-2.66 Second trimester 0.55-2.73 Third trimester 0.43-2.91 Performed By: #### 1 759, 48193 #### [facility] [place] [address] Clock Repair Technician: Manuel Azar MD XR ABDOMEN COMP DECUB [...] Willett MD on 02/13/2025 3:05 PM Normal [facility] CBC WITH AUTO DIFFERENTIALon 02-09-2025 BASOPHILS ABSOLUTE COUNT (10*3/UL) BY AUTOMATED COUNT 0.1 10*3/uL Normal 0.0-0.2 [facility] Comment on above: Performed By: #### D DMR #### [facility] ([address] [address] VIR BASOPHILS RELATIVE PERCENT BY AUTOMATED COUNT 1.3 % Normal [facility] Comment on above: Performed By: #### D DMR #### [facility] ([address] [address] VIR CELLAVISION DIFFERENTIAL TYPE AUTOMATED DIFFERENTIAL Normal [facility] Comment on above: Performed By: #### D DMR #### [facility] ([address] [place] [address] VIR Eosinophils (Bld) [#/Vol] 0.1 10*3/uL Normal 0.0-0.4 [facility] Comment on above: Performed By: #### D DMR #### [facility] ([address] [address] VIR EOSINOPHILS RELATIVE PERCENT BY AUTOMATED COUNT 1.6 % Normal [facility] Comment on above: Performed By: #### D DMR #### [facility] ([address] [place] [address] VIR Erythrocyte distribution width (RBC) [Ratio] 13.7 % Normal 11.5-15 [facility] Comment on above: Performed By: #### D DMR #### [facility] ([address] [address] VIR Hematocrit (Bld) [Volume fraction] 40.2 % Normal 35-47 [facility] Comment on above: Performed By: #### D DMR #### [facility] ([address] [address] VIR Hemoglobin (Bld) [Mass/Vol] 13.8 g/dL Normal 11.7-15.5 [facility] Comment on above: Performed By: #### D DMR #### [facility] ([address] [address] VIR LYMPHOCYTES ABSOLUTE COUNT (10*3/UL) BY AUTOMATED COUNT 2.7 10*3/uL Normal 1.0-3.5 [facility] Comment on above: Performed By: #### D DMR #### [facility] ([address] [address] VIR LYMPHOCYTES RELATIVE PERCENT BY AUTOMATED COUNT 35.1 % Normal [facility] Comment on above: Performed By: #### D DMR #### [facility] ([address] [address] VIR MCH (RBC) [Entitic mass] 28.4 pg Normal 27-34 [facility] Comment on above: Performed By: #### D DMR #### [facility] ([address] [address] VIR MCHC (RBC) [Mass/Vol] 34.3 g/dL Normal 32-36 [facility] Comment on above: Performed By: #### D DMR #### [facility] ([address] [address] VIR MCV (RBC) [Entitic vol] 83 fL Normal 80-100 [facility] Comment on above: Performed By: #### D DMR #### [facility] ([facility]) [address] [place] [address] VIR MONOCYTES ABSOLUTE COUNT (10*3/UL) BY AUTOMATED COUNT 0.7 10*3/uL Normal 0.0-0.9 [facility] Comment on above: Performed By: #### D DMR #### [facility] ([facility]) [address] [place] [address] VIR MONOCYTES RELATIVE PERCENT BY AUTOMATED COUNT 9.5 % Normal [facility] Comment on above: Performed By: #### D DMR #### [facility] ([address] [address] VIR NEUTROPHILS ABSOLUTE COUNT BY AUTOMATED COUNT 4.1 10*3/uL Normal 1.5-6.6 [facility] Comment on above: Performed By: #### D DMR #### [facility] ([address] [address] VIR NEUTROPHILS RELATIVE PERCENT BY AUTOMATED COUNT 52.5 % Normal [facility] Comment on above: Performed By: #### D DMR #### [facility] ([address] [place] [address] VIR Platelet mean volume (Bld) [Entitic vol] 9.5 fL Normal 7-12 [facility] Comment on above: Performed By: #### D DMR #### [facility] ([address] [address] VIR Platelets (Bld) [#/Vol] 247 10*3/uL Normal 150-450 [facility] Comment on above: Performed By: #### D DMR #### [facility] ([address] [address] VIR RBC COUNT 4.86 X10E12/L Normal 3.8-5.2 [facility] Comment on above: Performed By: #### D DMR #### [facility] ([facility]) [address] [place] [address]. [place] [address] VIR WBC (Bld) [#/Vol] 7.8 10*3/uL Normal 4-11 [facility] Comment on above: Performed By: #### D DMR #### [facility] ([address] [place] [address] VIR CBC auto differentialon 07-0 Basophils (Bld) [#/Vol] 0.1 10*3/uL 0.0 - 0.2 10*3/uL [facility] Basophils/100 WBC (Bld) 1.3 % [facility] Differential cell count method Nom (Bld) AUTOMATED DIFFERENTIAL [facility] Eosinophils (Bld) [#/Vol] 0.1 10*3/uL 0.0 - 0.4 10*3/uL [facility] Eosinophils/100 WBC (Bld) 1.6 % [facility] Erythrocyte distribution width (RBC) [Ratio] 13.7 % 11.5 - 15 % [facility] Hematocrit (Bld) [Volume fraction] 40.2 % 35 - 47 % [facility] Hemoglobin (Bld) [Mass/Vol] 13.8 g/dL 11.7 - 15.5 g/dL [facility] Lymphocytes (Bld) [#/Vol] 2.7 10*3/uL 1.0 - 3.5 10*3/uL [facility] Lymphocytes/100 WBC (Bld) 35.1 % [facility] MCH (RBC) [Entitic mass] 28.4 pg 27 - 34 pg [facility] MCHC (RBC) [Mass/Vol] 34.3 g/dL 32 - 36 g/dL [facility] MCV (RBC) [Entitic vol] 83 fL 80 - 100 fL [facility] Monocytes (Bld) [#/Vol] 0.7 10*3/uL 0.0 - 0.9 10*3/uL [facility] Monocytes/100 WBC (Bld) 9.5 % [facility] Neutrophils (Bld) [#/Vol] 4.1 10*3/uL 1.5 - 6.6 10*3/uL [facility] Neutrophils/100 WBC (Bld) 52.5 % [facility] Platelet mean volume (Bld) [Entitic vol] 9.5 fL 7 - 12 fL [facility] Platelets (Bld) [#/Vol] 247 10*3/uL [facility] RBC (Bld) [#/Vol] 4.86 10*6/uL [facility] WBC LM Ql (Sput) 7.8 [facility] COMPREHENSIVE METABOLIC PANE Jaison 02-09-2025 Albumin [Mass/Vol] 3.7 g/dL Normal 3.2-5.3 [facility] Comment on above: Performed By: #### D DMR #### [facility] ([address] [address] VIR ALP [Catalytic activity/Vol] 72 U/L Normal 39-130 [facility] Comment on above: Performed By: #### D DMR #### [facility] ([address] [address] VIR ALT [Catalytic activity/Vol] 15 U/L Normal <=31 [facility] Comment on above: Performed By: #### D DMR #### [facility] ([address] [address] VIR Anion gap [Moles/Vol] 13 mmol/L Normal 5-15 [facility] Comment on above: Performed By: #### D DMR #### [facility] ([address] [address] VIR AST [Catalytic activity/Vol] 16 U/L Normal <=41 [facility] Comment on above: Performed By: #### D DMR #### [facility] ([address] [address] VIR Bilirubin [Mass/Vol] 0.6 mg/dL Normal 0.3-1.2 [facility] Comment on above: Performed By: #### D DMR #### [facility] ([address] [place] [address] VIR Calcium [Mass/Vol] 9.3 mg/dL Normal 8.5-10.5 [facility] Comment on above: Performed By: #### D DMR #### [facility] ([address] [place] [address] VIR Chloride [Moles/Vol] 99 mmol/L Normal 98-109 [facility] Comment on above: Performed By: #### D DMR #### [facility] ([address] [place] [address] VIR CO2 [Moles/Vol] 23 mmol/L Normal 22-32 [facility] Comment on above: Performed By: #### D DMR #### [facility] ([address] [place] [address] VIR Creatinine [Mass/Vol] 0.68 mg/dL Normal 0.40-1.00 [facility] Comment on above: Result Comment: METH OD TRACEABLE TO IDMS STANDARD Performed By: #### D DMR #### [facility] ([address] [place] [address] VIR EGFR (CKD-EPI) NON-RACE DEPENDENT >^90 Normal >=60 [facility] Comment on above: Result Comment: eGFR not reported due to non-numeric value for Creatinine. Reported eGFR is based on the CKD-EPI 2021 equation that does not use a race coefficient. Performed By: #### D DMR #### [facility] ([address] [place] [address] VIR Glucose [Mass/Vol] 95 mg/dL Normal 65-99 [facility] Comment on above: Performed By: #### D DMR #### [facility] ([address] [place] [address] VIR Potassium [Moles/Vol] 3.2 mmol/L Low 3.5-5.0 [facility] Comment on above: Performed By: #### D DMR #### [facility] ([address] [place] [address] VIR Protein [Mass/Vol] 6.8 g/dL Normal 6.0-8.0 [facility] Comment on above: Performed By: #### D DMR #### [facility] ([address] [place] [address] VIR Sodium [Moles/Vol] 135 mmol/L Normal 134-146 [facility] Comment on above: Performed By: #### D DMR #### [facility] ([address] [place] [address] VIR Urea nitrogen [Mass/Vol] 10 mg/dL Normal 5-23 [facility] Comment on above: Performed By: #### D DMR #### [facility] ([address] [place] [address] VIR Comprehensive metabolic pane jaison 02-09-2025 Albumin [Mass/Vol] 3.7 g/dL 3.2 - 5.3 g/dL Pr [facility] ALP [Catalytic activity/Vol] 72 U/L 39 - 130 U/L [facility] ALT No additional P-5'-P [Catalytic activity/Vol] 15 U/L NINF - 31 U/L [facility] Anion gap [Moles/Vol] 13 mmol/L 5 - 15 mmol/L [facility] AST [Catalytic activity/Vol] 16 U/L NINF - 41 U/L [facility] Bilirubin [Mass/Vol] 0.6 mg/dL 0.3 - 1 .2 mg/dL [facility] Calcium [Mass/Vol] 9.3 mg/dL 8.5 - 10. 5 mg/dL [facility] Chloride [Moles/Vol] 99 mmol/L 98 - 10 9 mmol/L [facility] CO2 [Moles/Vol] 23 mmol/L 22 - 32 mmol/L [facility] Creatinine [Mass/Vol] 0.68 mg/dL 0.40 - 1.00 mg/dL [facility] Comment on above: METHOD TRACEABLE TO IDMS STANDARD EGFR Non-Race Dependent - PINF [facility] Comment on above: eGFR not reported du e to non-numeric value for Creatinine. Reported eGFR is based on the CKD-EPI 2020 equation that does not use a race coefficient. Glucose [Mass/Vol] 95 mg/dL 65 - 99 mg/dL [facility] Interpretation and review of laboratory results Abnormal [facility] Potassium [Moles/Vol] 3.2 mmol/L Low 3.5 - 5.0 mmol/L [facility] Protein [Mass/Vol] 6.8 g/dL 6.0 - 8.0 g/dL [facility] Sodium [Moles/Vol] 135 mmol/L 134 - 146 mmol/L [facility] Urea nitrogen [Mass/Vol] 10 mg/dL 5 - 23 mg/dL [facility] MAGNESIUMon 02-09-2025 Magnesium [Mass/Vol] 1.9 mg/dL Normal 1.8-2.6 [facility] Comment on above: Performed By: #### D DMR #### [facility] ([address] [address] VIR Magnesiumon 02-09-2025 Interpretation and review of laboratory results Normal [facility] Magnesium [Mass/Vol] 1.9 mg/dL 1.8 - 2 .6 mg/dL [facility] No Panel Informationon 02-09 [facility] POTASSIUMon 02-09-2025 Potassium [Moles/Vol] 3.6 mmol/L Normal 3.5-5.0 [facility] Comment on above: Performed By: #### D DMR #### [facility] ([address] [address] VIR Potassium [Moles/Vol] 2.7 mmol/L Critically low 3.5-5.0 [facility] Comment on above: Performed By: #### D DMR #### [facility] ([facility]) [address] [place] [address] VIR Potassiumon 02-09-2025 Interpretation and review of laboratory results Normal [facility] Potassium [Moles/Vol] 3.6 mmol/L 3.5 - 5.0 mmol/L [facility] PotassiumOrdered By: Radha Tripathi on 02-09-2025 Interpretation and review of laboratory results Abnormal [facility] Potassium [Moles/Vol] 2.7 mmol/L Critically low 3.5 - 5.0 mmol/L [facility] SST TOPon 02-09-2025 Extra Tube Auto Resulted [facility] 36on 02-08-2025 36 Patient called back. I then called Dr. Cochran on the phone for advice before the long holiday weekend. He wants patient to double her metoprolol. Earl then informed patient. Normal [facility] APTTon 02-08-2025 aPTT Coag (PPP) [Time] 32 s [facility] aPTT Coag (Bld) [Time] 32 s Normal 26-37 [facility] Comment on above: Performed By: #### C BCA #### [facility] ([facility]) [address] [place] [address] VIR CBC WITH AUTO DIFFERENTIALon 02-08-2025 BASOPHILS ABSOLUTE COUNT (10*3/UL) BY AUTOMATED COUNT 0.2 10*3/uL Normal 0.0-0.2 [facility] Comment on above: Performed By: #### C BCA #### [facility] ([address] [address] VIR BASOPHILS RELATIVE PERCENT BY AUTOMATED COUNT 3.0 % Normal [facility] Comment on above: Performed By: #### C BCA #### [facility] ([address] [address] VIR CELLAVISION DIFFERENTIAL TYPE AUTOMATED DIFFERENTIAL Normal [facility] Comment on above: Performed By: #### C BCA #### [facility] ([address] [address] VIR Eosinophils (Bld) [#/Vol] 0.1 10*3/uL Normal 0.0-0.4 [facility] Comment on above: Performed By: #### C BCA #### [facility] ([address] [address] VIR EOSINOPHILS RELATIVE PERCENT BY AUTOMATED COUNT 1.0 % Normal [facility] Comment on above: Performed By: #### C BCA #### [facility] ([address] [address] VIR Erythrocyte distribution width (RBC) [Ratio] 13.7 % Normal 11.5-15 [facility] Comment on above: Performed By: #### C BCA #### [facility] ([address] [address] VIR Hematocrit (Bld) [Volume fraction] 46.9 % Normal 35-47 [facility] Comment on above: Performed By: #### C BCA #### [facility] ([address] [address] VIR Hemoglobin (Bld) [Mass/Vol] 16.2 g/dL High 11.7-15.5 [facility] Comment on above: Performed By: #### C BCA #### [facility] ([address] [address] VIR LYMPHOCYTES ABSOLUTE COUNT (10*3/UL) BY AUTOMATED COUNT 1.9 10*3/uL Normal 1.0-3.5 [facility] Comment on above: Performed By: #### C BCA #### [facility] ([address] [address] VIR LYMPHOCYTES RELATIVE PERCENT BY AUTOMATED COUNT 22.5 % Normal [facility] Comment on above: Performed By: #### C BCA #### [facility] ([address] [address] VIR MCH (RBC) [Entitic mass] 28.5 pg Normal 27-34 [facility] Comment on above: Performed By: #### C BCA #### [facility] ([address] [place] [address] VIR MCHC (RBC) [Mass/Vol] 34.6 g/dL Normal 32-36 [facility] Comment on above: Performed By: #### C BCA #### [facility] ([address] [address] VIR MCV (RBC) [Entitic vol] 82 fL Normal 80-100 [facility] Comment on above: Performed By: #### C BCA #### [facility] ([address] [address] VIR MONOCYTES ABSOLUTE COUNT (10*3/UL) BY AUTOMATED COUNT 0.5 10*3/uL Normal 0.0-0.9 [facility] Comment on above: Performed By: #### C BCA #### [facility] ([address] [address] VIR MONOCYTES RELATIVE PERCENT BY AUTOMATED COUNT 5.9 % Normal [facility] Comment on above: Performed By: #### C BCA #### [facility] ([address] [address] VIR NEUTROPHILS ABSOLUTE COUNT BY AUTOMATED COUNT 5.7 10*3/uL Normal 1.5-6.6 [facility] Comment on above: Performed By: #### C BCA #### [facility] ([address] [place] [address] VIR NEUTROPHILS RELATIVE PERCENT BY AUTOMATED COUNT 67.6 % Normal [facility] Comment on above: Performed By: #### C BCA #### [facility] ([facility]) [address] [place] [address] [place] [address] VIR Platelet mean volume (Bld) [Entitic vol] 9.7 fL Normal 7-12 [facility] Comment on above: Performed By: #### C BCA #### [facility] ([address] [place] [address] VIR Platelets (Bld) [#/Vol] 285 10*3/uL Normal 150-450 [facility] Comment on above: Performed By: #### C BCA #### [facility] ([address] [address] VIR RBC COUNT 5.69 X10E12/L High 3.8-5.2 [facility] Comment on above: Performed By: #### C BCA #### [facility] ([address] [place] [address] VIR WBC (Bld) [#/Vol] 8.4 10*3/uL Normal 4-11 [facility] Comment on above: Performed By: #### C BCA #### [facility] ([address] [address] VIR CBC auto differentialon 07-0 Basophils (Bld) [#/Vol] 0.2 10*3/uL 0.0 - 0.2 10*3/uL [facility] System Basophils/100 WBC (Bld) 3 % [facility] Differential cell count method Nom (Bld) AUTOMATED DIFFERENTIAL [facility] Eosinophils (Bld) [#/Vol] 0.1 10*3/uL 0.0 - 0.4 10*3/uL [facility] Eosinophils/100 WBC (Bld) 1 % [facility] Erythrocyte distribution width (RBC) [Ratio] 13.7 % 11.5 - 15 % [facility] Hematocrit (Bld) [Volume fraction] 46.9 % 35 - 47 % [facility] Hemoglobin (Bld) [Mass/Vol] 16.2 g/dL High 11.7 - 15.5 g/dL [facility] Interpretation and review of laboratory results Abnormal [facility] Lymphocytes (Bld) [#/Vol] 1.9 10*3/uL 1.0 - 3.5 10*3/uL [facility] Lymphocytes/100 WBC (Bld) 22.5 % [facility] MCH (RBC) [Entitic mass] 28.5 pg 27 - 34 pg [facility] MCHC (RBC) [Mass/Vol] 34.6 g/dL 32 - 36 g/dL [facility] MCV (RBC) [Entitic vol] 82 fL 80 - 100 fL [facility] Monocytes (Bld) [#/Vol] 0.5 10*3/uL 0.0 - 0.9 10*3/uL [facility] Monocytes/100 WBC (Bld) 5.9 % [facility] Neutrophils (Bld) [#/Vol] 5.7 10*3/uL 1.5 - 6.6 10*3/uL [facility] Neutrophils/100 WBC (Bld) 67.6 % [facility] Platelet mean volume (Bld) [Entitic vol] 9.7 fL 7 - 12 fL [facility] Platelets (Bld) [#/Vol] 285 10*3/uL [facility] RBC (Bld) [#/Vol] 5.69 10*6/uL High [facility] System WBC LM Ql (Sput) 8.4 [facility] COMPREHENSIVE METABOLIC PANE Jaison 02-08-2025 Albumin [Mass/Vol] 4.7 g/dL Normal 3.2-5.3 [facility] Comment on above: Performed By: #### C BCA #### [facility] ([address] [place] [address] VIR ALP [Catalytic activity/Vol] 90 U/L Normal 39-130 [facility] Comment on above: Performed By: #### C BCA #### [facility] ([address] [address] VIR ALT [Catalytic activity/Vol] 18 U/L Normal <=31 [facility] Comment on above: Performed By: #### C BCA #### [facility] ([address] [place] [address] VIR Anion gap [Moles/Vol] 14 mmol/L Normal 5-15 [facility] Comment on above: Performed By: #### C BCA #### [facility] ([address] [place] [address] VIR AST [Catalytic activity/Vol] 19 U/L Normal <=41 [facility] Comment on above: Performed By: #### C BCA #### [facility] ([address] [place] [address] VIR Bilirubin [Mass/Vol] 0.7 mg/dL Normal 0.3-1.2 [facility] Comment on above: Performed By: #### C BCA #### [facility] ([address] [place] [address] VIR Calcium [Mass/Vol] 9.8 mg/dL Normal 8.5-10.5 [facility] Comment on above: Performed By: #### C BCA #### [facility] ([address] [place] [address] VIR Chloride [Moles/Vol] 95 mmol/L Low 98-109 [facility] Comment on above: Performed By: #### C BCA #### [facility] ([address] [place] [address] VIR CO2 [Moles/Vol] 26 mmol/L Normal 22-32 [facility] Comment on above: Performed By: #### C BCA #### [facility] ([address] [address] VIR Creatinine [Mass/Vol] 0.82 mg/dL Normal 0.40-1.00 [facility] Comment on above: Result Comment: METH OD TRACEABLE TO IDMS STANDARD Performed By: #### C BCA #### [facility] ([address] [place] [address] VIR EGFR (CKD-EPI) NON-RACE DEPENDENT >^90 Normal >=60 [facility] Comment on above: Result Comment: Repo rted eGFR is based on the CKD-EPI 2020 equation that does not use a race coefficient. Performed By: #### C BCA #### [facility] ([address] [place] [address] VIR Glucose [Mass/Vol] 106 mg/dL High 65-99 [facility] Comment on above: Performed By: #### C BCA #### [facility] ([address] [place] [address] VIR Potassium [Moles/Vol] 2.7 mmol/L Critically low 3.5-5.0 [facility] Comment on above: Performed By: #### C BCA #### [facility] ([address] [place] [address] VIR Protein [Mass/Vol] 8.4 g/dL High 6.0-8.0 [facility] Comment on above: Performed By: #### C BCA #### [facility] ([address] [place] [address] VIR Sodium [Moles/Vol] 135 mmol/L Normal 134-146 [facility] Comment on above: Performed By: #### C BCA #### [facility] ([address] [place] [address] VIR Urea nitrogen [Mass/Vol] 10 mg/dL Normal 5-23 [facility] Comment on above: Performed By: #### C BCA #### [facility] ([address] [place] [address] BRAIN WO CONTon 5 CT BRAIN WO CONT CT BRAIN WO [...] Antonio MD on 02/08/2025 6:27 PM Normal [facility] CT Head WO contraston 2024 CLINICAL HISTORY: [...] Monty Antonio MD on 02/08/2025 6:27 PM [facility] Monty Antonio M D - 02/08/2025 CLINICAL [...] Monty Antonio MD on 02/08/2025 6:27 PM [facility] Radiology Study observation (narrative) [facility] CT Head WO contrastOrdered B y: Monty Antonio on 02-08-2025 [facility] Work Phone: Comprehensive metabolic pane lOrdered By: Lucinda Knowles on 02-08-2025 Albumin [Mass/Vol] 4.7 g/dL 3.2 - 5.3 g/dL [facility] ALP [Catalytic activity/Vol] 90 U/L 39 - 130 U/L [facility] ALT No additional P-5'-P [Catalytic activity/Vol] 18 U/L NINF - 31 U/L [facility] Anion gap [Moles/Vol] 14 mmol/L 5 - 15 mmol/L [facility] AST [Catalytic activity/Vol] 19 U/L NINF - 41 U/L [facility] Bilirubin [Mass/Vol] 0.7 mg/dL 0.3 - 1 .2 mg/dL [facility] Calcium [Mass/Vol] 9.8 mg/dL 8.5 - 10. 5 mg/dL [facility] Chloride [Moles/Vol] 95 mmol/L Low 98 - 10 9 mmol/L [facility] CO2 [Moles/Vol] 26 mmol/L 22 - 32 mmol/L [facility] Creatinine [Mass/Vol] 0.82 mg/dL 0.40 - 1.00 mg/dL [facility] Comment on above: METHOD TRACEABLE TO IDMS STANDARD EGFR Non-Race Dependent - PINF [facility] Comment on above: Reported eGFR is bas ed on the CKD-EPI 2020 equation that does not use a race coefficient. Glucose [Mass/Vol] 106 mg/dL High 65 - 99 mg/dL [facility] Interpretation and review of laboratory results Abnormal [facility] Potassium [Moles/Vol] 2.7 mmol/L Critically low 3.5 - 5.0 mmol/L [facility] Protein [Mass/Vol] 8.4 g/dL High 6.0 - 8.0 g/dL [facility] Sodium [Moles/Vol] 135 mmol/L 134 - 146 mmol/L [facility] Urea nitrogen [Mass/Vol] 10 mg/dL 5 - 23 mg/dL [facility] DRUG SCREEN, URINEon 025 AMPHETAMINE/METHAMP Negative Normal Negative [facility] Comment on above: Result Comment: AMPH /METH screening cut off = 1000 ng/mL Performed By: #### D DMR #### [facility] ([address] [address] VIR BARBITURATES Negative Normal Negative [facility] Comment on above: Result Comment: Nicole iturates screening cut off value = 200 ng/mL Performed By: #### D DMR #### [facility] ([address] [address] VIR BENZODIAZEPINES Positive Abnormal Negative [facility] Comment on above: Result Comment: Chandana odiazepines screening cut off value = 200 ng/mL Performed By: #### D DMR #### [facility] ([address] [address] VIR CANNABINOIDS Negative Normal Negative [facility] Comment on above: Result Comment: Laura abinoids/THC screening cut off value = 50 ng/mL Performed By: #### D DMR #### [facility] ([address] [address] VIR COCAINE METABOLITE Negative Normal Negative [facility] Comment on above: Result Comment: Coca ine screening cut off value = 300 ng/mL Performed By: #### D DMR #### [facility] ([address] [address] VIR ECSTASY Negative Normal Negative [facility] Comment on above: Result Comment: Ecst asy screening cut off value = 500 ng/mL Performed By: #### D DMR #### [facility] ([address] [address] VIR METHADONE Negative Normal Negative [facility] Comment on above: Result Comment: Meth adone screening cut off value = 300 ng/mL. Performed By: #### D DMR #### [facility] ([address] [address] VIR OPIATES Negative Normal Negative [facility] Comment on above: Result Comment: Opia jamar screening cut off value = 300 ng/mL This test is used for the detection of codeine, hydrocodone (>1000 ng/mL), morphine and hydromorphone (>900 ng/mL) in urine. Performed By: #### D DMR #### [facility] ([address] [address] VIR OXYCODONE Negative Normal Negative [facility] Comment on above: Result Comment: Oxyc odone screening cut off value = 300 ng/mL This test is used for the detection of oxycodone and oxymorphone in urine. Performed By: #### D DMR #### [facility] ([address] [address] VIR PHENCYCLIDINE Negative Normal Negative [facility] Comment on above: Result Comment: Phen cyclidine screening cut off value = 25 ng/mL Performed By: #### D DMR #### [facility] ([address] [address] VIR Drug Screen, Urineon 025 Amphetamines Screen method >1000 ng/mL Ql (U) Negative Negative [facility] Comment on above: AMPH/METH screening cut off = 1000 ng/mL Barbiturates Screen Ql (U) Negative Negative [facility] Comment on above: Barbiturates screeni ng cut off value = 200 ng/mL Benzodiazepines Ql (U) Positive Abnormal Negative [facility] Comment on above: Benzodiazepines scre ening cut off value = 200 ng/mL Cocaine Ql (U) Negative Negative [facility] Comment on above: Cocaine screening cu t off value = 300 ng/mL Interpretation and review of laboratory results Abnormal [facility] Methadone (Mec) [Mass/Mass] Negative Negative [facility] Comment on above: Methadone screening cut off value = 300 ng/mL. Methylenedioxymetham phetamine Screen Ql (U) Negative Negative [facility] Comment on above: Ecstasy screening cu t off value = 500 ng/mL Opiates Ql (U) Negative Negative [facility] Comment on above: Opiates screening cu t off value = 300 ng/mL This test is used for the detection of codeine, hydrocodone (>1000 ng/mL), morphine and hydromorphone (>900 ng/mL) in urine. oxyCODONE [Mass/Vol] Negative Negative [facility] Comment on above: Oxycodone screening cut off value = 300 ng/mL This test is used for the detection of oxycodone and oxymorphone in urine. Phencyclidine Screen method >25 ng/mL Ql (U) Negative Negative [facility] Comment on above: Phencyclidine screen ing cut off value = 25 ng/mL Tetrahydrocannabinol Screen method >50 ng/mL Ql (U) Negative Negative [facility] Comment on above: Cannabinoids/THC scr eening cut off value = 50 ng/mL [facility] ECG 12 leadon 02-08-2025 TRACEMASTERVUE [facility] MAGNESIUMon 02-08-2025 Magnesium [Mass/Vol] 2.2 mg/dL Normal 1.8-2.6 [facility] Comment on above: Performed By: #### C BCA #### [facility] ([address] [address] VIR Magnesiumon 02-08-2025 Interpretation and review of laboratory results Normal [facility] Magnesium [Mass/Vol] 2.2 mg/dL 1.8 - 2 .6 mg/dL [facility] No Panel Informationon 02-08 Extra Tube Auto Resulted [facility] Interpretation and review of laboratory results Normal [facility] Orders Onlyon 02-08-2025 Orders Only [id number] Misty Elliott 1995 F Date Provider Department Center 02/08/2025 [id number] SAMAYOA [facility] Family History Problem Relation Age of Onset Diabetes Maternal Grandmother Lupus Maternal Grandmother Kidney disease Maternal Grandmother Von Willebrand disease Son Family Status - Relation Status Age at Mother Alive Father Alive Maternal Grandmother Son Alive Normal [facility] Orders Only [id number] Misty Elliott 1995 F Date Provider Department Center 02/08/2025 FABIAN PARSONS MERLINE [facility] Family History Problem Relation Age of Onset Diabetes Maternal Grandmother Lupus Maternal Grandmother Kidney disease Maternal Grandmother Von Willebrand disease Son Family Status - Relation Status Age at Mother Alive Father Alive Maternal Grandmother Son Alive Normal [facility] POCT NURSING URINE MACROSCOP IC UAon 02-08-2025 BILIRUBIN [place] Negative Normal Negative [facility] Comment on above: Performed By: #### C BCA #### [facility] ([address] [place] [address] VIR BLOOD/HGB [place] Negative Normal Negative [facility] Comment on above: Performed By: #### C BCA #### [facility] ([address] [place] [address] VIR GLUCOSE [place] Negative Normal Negative [facility] Comment on above: Performed By: #### C BCA #### [facility] ([address] [place] [address] VIR KETONES [place] Negative Normal Negative [facility] Comment on above: Performed By: #### C BCA #### [facility] ([address] [place] [address] VIR LEUKOCYTE ESTERASE [place] Negative Normal Negative [facility] Comment on above: Performed By: #### C BCA #### [facility] ([address] [place] [address] VIR NITRITE [place] Negative Normal Negative [facility] Comment on above: Performed By: #### C BCA #### [facility] ([address] [place] [address] VIR PH [place] 7.0 Normal 5.0, 6.0, 6.5, 7.0, 7.5, 8.0, 8.5, 5.5 [facility] Comment on above: Performed By: #### C BCA #### [address] [address] VIR PROTEIN [place] 100 mg/dL Abnormal Negative [facility] Comment on above: Performed By: #### C BCA #### [address] [address] VIR SPECIFIC GRAVITY [place] 1.020 Normal 1.010, 1.015, 1.020, 1.025 [facility] Comment on above: Performed By: #### C BCA #### [address] [address] VIR UROBILINOGEN [place] 0.2 E.U./dL Normal [facility] Comment on above: Performed By: #### C BCA #### [address] [address] VIR POCT Nursing Urine Macroscop ic UAon 02-08-2025 Bilirubin Ql (U) Negative Negative [facility] Glucose [Mass/Vol] Negative Negative [facility] Hemoglobin Ql (U) Negative Negative [facility] Interpretation and review of laboratory results Abnormal [facility] Ketones (U) [Mass/Vol] Negative Negative [facility] Leukocyte esterase Test strip Ql (U) Negative Negative [facility] Nitrite Ql (U) Negative Negative [facility] pH (U) 7.0 [pH] 5.0, 6.0, 6.5, 7.0, 7.5, 8.0, 8.5, 5.5 [facility] Protein Ql (U) 100 mg/dL Abnormal Negative [facility] Specific gravity (U) [Rel density] 1.020 1.010, 1.015, 1.020, 1.025 [facility] Urobilinogen Qn (U) 0.843994615 {George'U}/dL [facility] POCT , URINE (NUCG) on 02-08-2025 Beta HCG ( test) Ql (U) Negative Normal Negative, Indeterminate [facility] Comment on above: Performed By: #### C BCA #### [facility] ([address] [address] VIR POCT , urineon 07 HCG ( test) Ql (U) Negative Negative, Indeterminate [facility] Interpretation and review of laboratory results Normal [facility] PROTIME AND INRon 02-08-2025 INR 0.9 Normal 0.9-1.2 [facility] Comment on above: Performed By: #### C BCA #### [facility] ([address] [address] VIR PT Coag (PPP) [Time] 10.2 s Normal 9.8-13.2 [facility] Comment on above: Performed By: #### C BCA #### [facility] ([address] [address] VIR Protime & INRon 02-08-2025 INR Coag (Platelet poor plasma or blood) [Relative time] 0.9 0.9 - 1.2 [facility] PT Coag (PPP) [Time] 10.2 s [facility] TROP I, HIGH SENSITIVITY 1 H OURon 02-08-2025 TROPONIN I, HIGH SENSITIVITY 8 ng/L Normal <16 [facility] Comment on above: Performed By: #### D DMR #### [facility] ([address] [address] VIR TROPONIN I, HIGH SENSITIVITY 0 HOURon 02-08-2025 TROPONIN I, HIGH SENSITIVITY 7 ng/L Normal <16 [facility] Comment on above: Performed By: #### C BCA #### [facility] ([address] [address] VIR Troponin I, High Sensitivity 0 Houron 02-08-2025 Interpretation and review of laboratory results Normal [facility] Troponin I.cardiac High sensitivity method [Mass/Vol] 7 ng/L NINF - 16 ng/L [facility] Troponin I, High Sensitivity 1 Houron 02-08-2025 Interpretation and review of laboratory results Normal [facility] Troponin I.cardiac High sensitivity method [Mass/Vol] 8 ng/L NINF - 16 ng/L [facility] XR CHEST 1 VWon 02-08-2025 XR CHEST 1 VW XR CHEST 1 VW STUDY: XR CHEST 1 VW INDICATION: hypertension. COMPARISON: 01/18/2025 FINDINGS/IMPRESSION: * No acute cardiopulmonary process, by radiograph. * Electronic device overlies the left chest. Right axillary/chest wall clips. Finalized by Ever Matias on 02/08/2025 6:10 PM Normal [facility] XR Chest Single viewon 02-08 STUDY: XR [...] by Ever Matias on 02/08/2025 6:10 PM [facility] Radiology Study observation (narrative) [facility] XR Chest Single viewOrdered By: Ever Matias on 02-08-2025 [facility] Work Phone: 36on 02-07-2025 36 Patient called back with heart rate. Was at 92. Patient is worried about her blood pressure. Patient states last night it went up to 160. Patient denies any other symptoms. Normal [facility] 36 Patient called to make you aware [...] check her HR and call me back. [facility] Telephoneon 02-07-2025 Telephone [phone] Misty Elliott 1995 [facility] Department Elizabeth 02/07/2025 KIT BAHENA Family History Problem Relation Age of Onset Diabetes Maternal Grandmother Lupus Maternal Grandmother Kidney disease Maternal Grandmother Von Willebrand disease Son Family Status - Relation Status Age at Mother Alive Father Alive Maternal Grandmother Son Alive [facility] 36on 02-05-2025 36 Spoke with Kathleen at [facility] lab. She said as of 02/04/2025, the metanephrine send out was still in process. [facility] 36 Sent to [phone] [facility] 36 Referral sent [facility] Telephoneon 02-02-2025 Telephone [phone] Misty Elliott 1995 Provider Department Elizabeth 02/02/2025 [id number] DURANT Family History Problem Relation Age of Onset Diabetes Maternal Grandmother Lupus Maternal Grandmother Kidney disease Maternal Grandmother Von Willebrand disease Son Family Status - Relation Status Age at Mother Alive Father Alive Maternal Grandmother Son Alive [facility] Orders Onlyon 01-29-2025 Orders Only [id number] Misty Elliott 1995 Provider Department Elizabeth 01/29/2025 [id number], DOUG Velasquez Family History Problem Relation Age of Onset Diabetes Maternal Grandmother Lupus Maternal Grandmother Kidney disease Maternal Grandmother Von Willebrand disease Son Family Status - Relation Status Age at Mother Alive Father Alive Maternal Grandmother Son Alive Normal [facility] ALDOSTERONE LCMS, SERUMon ALDOSTERONE LCMS, SERUM 32.5 ng/dL Abnormal 0.0 - 30.0 ng/dL [facility] Comment on above: This test was develo ped and its performance characteristics determined by [employer]. It has not been cleared or approved by the Food and Drug Administration. Performed at: [facility] [address] [id number] Landscape Laborer: Ashwin Rahman MD, Phone: [phone] Interpretation and review of laboratory results Abnormal [facility] RENIN,PLASMAon 01-28-2025 Interpretation and review of laboratory results Abnormal [facility] Turn RENIN ACTIVITY, PLASMA 17.193 Abnormal [facility] Comment on above: This test was develo ped and its performance characteristics determined by [employer]. It has not been cleared or approved by the Food and Drug Administration. Performed at: [facility] [id number] Landscape Laborer: Ashwin Rahman MD, Phone: [phone] [facility] Office Visiton 01-22-2025 Follow-up visit [id number] Misty Elliott 1995 F Date Provider Department Elizabeth 01/22/2025 FABIAN PARSONS CARD [facility] Family History Problem Relation Age of Onset Diabetes Maternal Grandmother Lupus Maternal Grandmother Kidney disease Maternal Grandmother Von Willebrand disease Son Family Status - Relation Status Age at Mother Alive Father Alive Maternal Grandmother Son Alive Level of Service:39590 DC OFFICE/OUTPATIENT NEW MODERATE MDM 45 MINUTES Normal [facility] CBC WITH AUTO DIFFERENTIALon 01-18-2025 BASOPHILS ABSOLUTE COUNT (10*3/UL) BY AUTOMATED COUNT 0.1 10*3/uL Normal 0.0-0.2 [facility] Comment on above: Performed By: #### C BCA #### [facility] ([address] [place] [address] VIR BASOPHILS RELATIVE PERCENT BY AUTOMATED COUNT 1.0 % Normal [facility] Comment on above: Performed By: #### C BCA #### [facility] ([address] [address] VIR CELLAVISION DIFFERENTIAL TYPE AUTOMATED DIFFERENTIAL Normal [facility] Comment on above: Performed By: #### C BCA #### [facility] ([address] [address] VIR Eosinophils (Bld) [#/Vol] 0.1 10*3/uL Normal 0.0-0.4 [facility] Comment on above: Performed By: #### C BCA #### [address] [address] VIR EOSINOPHILS RELATIVE PERCENT BY AUTOMATED COUNT 0.5 % Normal [facility] Comment on above: Performed By: #### C BCA #### [facility] ([address] [address] VIR Erythrocyte distribution width (RBC) [Ratio] 14.2 % Normal 11.5-15 [facility] Comment on above: Performed By: #### C BCA #### [facility] ([address] [address] VIR Hematocrit (Bld) [Volume fraction] 43.1 % Normal 35-47 [facility] Comment on above: Performed By: #### C BCA #### [facility] ([address] [address] VIR Hemoglobin (Bld) [Mass/Vol] 14.7 g/dL Normal 11.7-15.5 [facility] Comment on above: Performed By: #### C BCA #### [address] [address] VIR LYMPHOCYTES ABSOLUTE COUNT (10*3/UL) BY AUTOMATED COUNT 2.2 10*3/uL Normal 1.0-3.5 [facility] Comment on above: Performed By: #### C BCA #### [facility] ([address] [address] VIR LYMPHOCYTES RELATIVE PERCENT BY AUTOMATED COUNT 20.1 % Normal [facility] Comment on above: Performed By: #### C BCA #### [facility] ([address] [address] VIR MCH (RBC) [Entitic mass] 29.3 pg Normal 27-34 [facility] Comment on above: Performed By: #### C BCA #### [facility] ([address] [address] VIR MCHC (RBC) [Mass/Vol] 34.0 g/dL Normal 32-36 [facility] Comment on above: Performed By: #### C BCA #### [facility] [facility] ([address] [address] VIR MCV (RBC) [Entitic vol] 86 fL Normal 80-100 [facility] Comment on above: Performed By: #### C BCA #### [facility] ([address] [address] VIR MONOCYTES ABSOLUTE COUNT (10*3/UL) BY AUTOMATED COUNT 0.7 10*3/uL Normal 0.0-0.9 [facility] Comment on above: Performed By: #### C BCA #### [facility] ([address] [address] VIR MONOCYTES RELATIVE PERCENT BY AUTOMATED COUNT 6.8 % Normal [facility] Comment on above: Performed By: #### C BCA #### [facility] ([address] [address] VIR NEUTROPHILS ABSOLUTE COUNT BY AUTOMATED COUNT 7.8 10*3/uL High 1.5-6.6 [facility] Comment on above: Performed By: #### C BCA #### [facility] ([facility]) [address] [place] [address] [place] [address] VIR NEUTROPHILS RELATIVE PERCENT BY AUTOMATED COUNT 71.6 % Normal [facility] Comment on above: Performed By: #### C BCA #### [facility] ([facility]) [address] [place], [place] [address]. [place] [address] VIR Platelet mean volume (Bld) [Entitic vol] 9.8 fL Normal 7-12 [facility] Comment on above: Performed By: #### C BCA #### [facility] ([facility]) [address] [place], [place] [address]. [place] [address] VIR Platelets (Bld) [#/Vol] 257 10*3/uL Normal 150-450 [facility] Comment on above: Performed By: #### C BCA #### [facility] ([address] [place] [address] VIR RBC COUNT 5.00 X10E12/L Normal 3.8-5.2 [facility] Comment on above: Performed By: #### C BCA #### [facility] ([address] [place] [address] VIR WBC (Bld) [#/Vol] 10.9 10*3/uL Normal 4-11 [facility] Comment on above: Performed By: #### C BCA #### [facility] ([address] [place] [address] VIR COMPREHENSIVE METABOLIC PANE Jaison 01-18-2025 Albumin [Mass/Vol] 4.3 g/dL Normal 3.2-5.3 [facility] Comment on above: Performed By: #### C MP #### [facility] ([address] [place] [address] VIR ALP [Catalytic activity/Vol] 95 U/L Normal 39-130 [facility] Comment on above: Performed By: #### C MP #### [facility] ([facility]) [address] [place] [address] VIR ALT [Catalytic activity/Vol] 16 U/L Normal <=31 [facility] Comment on above: Performed By: #### C MP #### [facility] ([facility] [address] [place] [address] VIR Anion gap [Moles/Vol] 12 mmol/L Normal 5-15 [facility] Comment on above: Performed By: #### C MP #### [facility] ([place] [address] [place] [address] VIR AST [Catalytic activity/Vol] 17 U/L Normal <=41 [facility] Comment on above: Performed By: #### C MP #### [facility] ([place] [address] [place] [address] VIR Bilirubin [Mass/Vol] 0.8 mg/dL Normal 0.3-1.2 [facility] Comment on above: Performed By: #### C MP #### [facility] ([place] [address] [place] [address] VIR Calcium [Mass/Vol] 9.2 mg/dL Normal 8.5-10.5 [facility] Comment on above: Performed By: #### C MP #### [facility] ([place] [address] [place] [address] VIR Chloride [Moles/Vol] 102 mmol/L Normal 98-109 [facility] Comment on above: Performed By: #### C MP #### [facility] ([place] [address] [place] [address] VIR CO2 [Moles/Vol] 22 mmol/L Normal 22-32 [facility] Comment on above: Performed By: #### C MP #### [facility] ([place] [address] [place] [address] VIR Creatinine [Mass/Vol] 0.85 mg/dL Normal 0.40-1.00 [facility] Comment on above: Result Comment: METH OD TRACEABLE TO IDMS STANDARD Performed By: #### C MP #### [facility] ([address] [address] VIR EGFR (CKD-EPI) NON-RACE DEPENDENT >^90 Normal >=60 [facility] Comment on above: Result Comment: eGFR not reported due to non-numeric value for Creatinine. Reported eGFR is based on the CKD-EPI 2021 equation that does not use a race coefficient. Performed By: #### C MP #### [facility] ([address] [address] VIR Glucose [Mass/Vol] 91 mg/dL Normal 65-99 [facility] Comment on above: Performed By: #### C MP #### [facility] ([address] [address] VIR Potassium [Moles/Vol] 3.0 mmol/L Low 3.5-5.0 [facility] Comment on above: Performed By: #### C MP #### [facility] ([address] [address] VIR Protein [Mass/Vol] 7.5 g/dL Normal 6.0-8.0 [facility] Comment on above: Performed By: #### C MP #### [facility] ([address] [address] VIR Sodium [Moles/Vol] 136 mmol/L Normal 134-146 [facility] Comment on above: Performed By: #### C MP #### [facility] ([address] [address] VIR Urea nitrogen [Mass/Vol] 19 mg/dL Normal 5-23 [facility] Comment on above: Performed By: #### C MP #### [facility] ([address] [place] [address] ABDOMEN AND PELVIS W CONT [...] Willett MD on 01/18/2025 6:11 PM Normal [facility] CT CTA CHESTon 01-18-2025 CT CTA CHEST [...] Ramirez MD on 01/18/2025 5:34 PM Normal [facility] D-DIMERon 01-18-2025 D DIMER 429 ug/mL High 1-255 [facility] Comment on above: Result Comment: Resu lts [...] level. Performed By: #### D DMR #### [address] [address] VIR THYROID PROFILE INCLUDES TSH FT4on 01-18-2025 Free T4 [Mass/Vol] 0.95 ng/dL Normal 0.61-1.60 [facility] Comment on above: Performed By: #### T HYR #### [facility] ([address] [address] VIR TSH 1.78 uIU/mL Normal 0.49-4.67 [facility] Comment on above: Performed By: #### T HYR #### [facility] ([address] [address] VIR TROP I, HIGH SENSITIVITY 1 H OURon 01-18-2025 TROPONIN I, HIGH SENSITIVITY 9 ng/L Normal <16 [facility] Comment on above: Performed By: #### T NIHS1 #### [facility] ([facility]) [address] [place] [address] VIR TROPONIN I, HIGH SENSITIVITY 0 HOURon 01-18-2025 TROPONIN I, HIGH SENSITIVITY 10 ng/L Normal <16 [facility] Comment on above: Performed By: #### T NIHS0 #### [facility] ([facility]) [address] [place] [address] VIR XR CHEST 2 VWSon 01-18-2025 XR CHEST 2 VWS XR CHEST 2 VWS XR CHEST 2 VWS Clinical Information: chest pain, h/o recent sternal fx Comparison: 12/12/2024. IMPRESSION: * No acute cardiopulmonary disease. * Stable heart size. * Surgical clips right axillary region. Finalized by Nolberto Tinajero MD on 01/18/2025 5:05 PM Normal [facility] MLR HEMOGLOBIN A1Con 025 Glucose [Mass/Vol] 85 mg/dL [facility] HbA1c (Bld) [Mass fraction] 4.6 % 4.5 - 6.2 % [facility] Comment on above: ADA RECOMMENDED LIMI T 4.0 - 6.0 ADA THERAPEUTIC TARGET < 7.0 ACTION SUGGESTED > 7.0 [facility] e CBC w/ Auto Diffon 5 Basophil Absolute 0.1 E9/L Normal 0.0-0.2 [facility] Comment on above: Performed By: #### 2 [id number] #### [facility] [address] [place] [address] Basophils/100 WBC (Bld) 1.3 % Normal 0.0-2.0 [facility] Comment on above: Performed By: #### 2 084336 #### [facility] [address] [place] [address] Eos Absolute 0.1 E9/L Normal 0.0-0.5 [facility] Comment on above: Performed By: #### 2 075509 #### [facility] [address] [place] [address] Eosinophils/100 WBC (Bld) 0.6 % Normal 0.0-8.0 [facility] Comment on above: Performed By: #### 2 769963 #### [facility] [address] [place] [address] Erythrocyte distribution width (RBC) [Ratio] 14.2 % Normal 10.9-14.2 [facility] Comment on above: Performed By: #### 2 868813 #### [facility] [address] [place] [address] Hematocrit (Bld) [Volume fraction] 39.1 % Normal 34.0-46.0 [facility] Comment on above: Performed By: #### 2 474458 #### [facility] [address] [place] [address] Hemoglobin (Bld) [Mass/Vol] 13.6 g/dL Normal 12.0-16.0 [facility] Comment on above: Performed By: #### 2 687215 #### [facility] [address] [place] [address] Lymph Absolute 1.7 E9/L Normal 1.0-4.0 [facility] Comment on above: Performed By: #### 2 802578 #### [facility] [address] [place] [address] Lymphocytes/100 WBC (Bld) 20.8 % Normal 14.0-50.0 [facility] Comment on above: Performed By: #### 2 787200 #### [facility] [address] [place] [address] MCH (RBC) [Entitic mass] 29.7 pg Normal 27.0-34.0 [facility] Comment on above: Performed By: #### 2 602579 #### [facility] [address] [place] [address] MCHC (RBC) [Mass/Vol] 34.6 g/dL Normal 31.4-36.0 [facility] Comment on above: Performed By: #### 2 090596 #### [facility] [address] [place] [address] MCV (RBC) [Entitic vol] 85.7 fL Normal 80.0-100.0 [facility] Comment on above: Performed By: #### 2 676929 #### [facility] [address] [place] [address] [place] Absolute 0.7 E9/L Normal 0.2-1.0 [facility] Comment on above: Performed By: #### 2 703725 #### [facility] [address] [place] [address] Monocytes/100 WBC (Bld) 8.6 % Normal 4.0-14.0 [facility] Comment on above: Performed By: #### 2 198570 #### [facility] [address] [place] [address] Neutro Absolute 5.8 E9/L Normal 2.0-7.5 [facility] Comment on above: Performed By: #### 2 860350 #### [facility] [address] [place] [address] Neutro Auto 68.7 % Normal 36.0-75.0 [facility] Comment on above: Performed By: #### 2 307203 #### [facility] [address] [place] [address] Platelet 270.0 E9/L Normal 150.0-500.0 [facility] Comment on above: Performed By: #### 2 840818 #### [facility] [address] [place] [address] Platelet mean volume (Bld) [Entitic vol] 9.1 fL Normal 6.4-10.8 [facility] Comment on above: Performed By: #### 2 151473 #### [facility] [address] [place] [address] RBC 4.6 E12/L Normal 4.3-5.9 [facility] Comment on above: Performed By: #### 2 916848 #### [facility] [address] [place] [address] WBC 8.4 E9/L Normal 4.0-11.0 [facility] Comment on above: Performed By: #### 2 139687 #### [facility] [address] [place] [address] CHEMISTRYOrdered By: SYSTEM SYSTEM on 01-03-2025 Albumin [...] 01-03-2025 Albumin [Mass/Vol] 4.2 g/dL Normal 3.3-5.0 [facility] Comment on above: Performed By: #### 2 127512 #### [facility] [address] [place] [address] Albumin/Globulin [Mass ratio] 1.5 {ratio} Normal 1.1-2.2 [facility] Comment on above: Performed By: #### 2 453339 #### [facility] [address] [place] [address] Alk Phos 171 Int._Unit/L High 21-98 [facility] Comment on above: Performed By: #### 2 426967 #### [facility] [address] [place] [address] ALT 11 Int._Unit/L Normal 6-46 [facility] Comment on above: Performed By: #### 2 836695 #### [facility] [address] [place] [address] Anion gap [Moles/Vol] 11 mmol/L Normal 6-16 [facility] Comment on above: Performed By: #### 2 754220 #### [facility] [address] [place] [address] AST 14 Int._Unit/L Normal 5-43 [facility] Comment on above: Performed By: #### 2 026133 #### [facility] [address] [place] [address] Bili Total 1.0 mg/dL Normal 0.0-1.1 [facility] Comment on above: Performed By: #### 2 336582 #### [facility] [address] [place] [address] BUN/Creat Ratio 15 No Units Normal 10- [facility] Comment on above: Performed By: #### 2 914963 #### [facility] [address] [place] [address] Calcium [Mass/Vol] 9.1 mg/dL Normal 8.9-11.1 [facility] Comment on above: Performed By: #### 2 533192 #### [facility] [address] [place] [address] Chloride [Moles/Vol] 105 mmol/L Normal 101-111 [facility] Comment on above: Performed By: #### 2 175457 #### [facility] [address] [place] [address] CO2 [Moles/Vol] 24 mmol/L Normal 21-31 [facility] Comment on above: Performed By: #### 2 467686 #### [facility]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 mmol/L Normal 3.5-5.0 [facility] Comment on above: Performed By: #### L IPA #### [facility] ([facility]) [address] [place] [address] VIR Protein [Mass/Vol] 6.6 g/dL Normal 6.0-8.0 [facility] Comment on above: Performed By: #### L IPA #### [facility] ([facility]) [address] [place] [address] VIR Sodium [Moles/Vol] 132 mmol/L Low 134-146 [facility] Comment on above: Performed By: #### L IPA #### [facility] ([facility]) [address] [place] [address] ABDOMEN AND PELVIS W CONT [...] Franklin Velázquez MD on 12/11/2024 2:19 AM Normal [facility] HEMOGLOBIN AND HEMATOCRIT, B LOODon 12-11-2024 Hematocrit (Bld) [Volume fraction] 37.9 % Normal 35-47 [facility] Comment on above: Performed By: #### L IPA #### [facility] ([facility]) [address] [place] [address] VIR Hemoglobin (Bld) [Mass/Vol] 13.1 g/dL Normal 11.7-15.5 [facility] Comment on above: Performed By: #### L IPA #### [facility] ([facility]) [address] [place] [address] VIR Hematocrit (Bld) [Volume fraction] 39.9 % Normal 35-47 [facility] Comment on above: Performed By: #### L IPA #### [facility] ([facility]) [address] [place] [address] VIR Hemoglobin (Bld) [Mass/Vol] 13.9 g/dL Normal 11.7-15.5 [facility] Comment on above: Performed By: #### L IPA #### [facility] ([facility]) [address] [place] [address] VIR LACTATE W/ REFLEXon 12-12-19 25 LACTATE W/ REFLEX LACTS LACTATE W/ REFLEX Cancelled Normal [facility] LIPASEon 12-11-2024 Lipase [Catalytic activity/Vol] 76 U/L Normal 11-82 [facility] Comment on above: Performed By: #### L IPA #### [facility] ([facility]) [address] [place] [address] VIR LIVER PANELon 05-05-2025 Albumin [Mass/Vol] 3.4 g/dL Normal 3.2-5.3 [facility] Comment on above: Performed By: #### L IPA #### [facility] ([facility]) [address] [place] [address] VIR ALP [Catalytic activity/Vol] 298 U/L High 39-130 [facility] Comment on above: Performed By: #### L IPA #### [facility] ([facility]) [address] [place] [address] VIR ALT [Catalytic activity/Vol] 110 U/L High <=31 [facility] Comment on above: Performed By: #### L IPA #### [facility] ([facility]) [address] [place] [address] VIR AST [Catalytic activity/Vol] 78 U/L High <=41 [facility] Comment on above: Performed By: #### L IPA #### [facility] ([facility]) [address] [place] [address] VIR Bilirubin [Mass/Vol] 3.1 mg/dL High 0.3-1.2 [facility] Comment on above: Performed By: #### L IPA #### [facility] ([facility]) [address] [place] [address] VIR Bilirubin.indirect [Mass/Vol] 1.3 mg/dL High <=0.4 [facility] Comment on above: Result Comment: R-Sp ecimen slightly hemolyzed, results decreased Performed By: #### L IPA #### [facility] ([facility]) [address] [place] [address] VIR Protein [Mass/Vol] 6.8 g/dL Normal 6.0-8.0 [facility] Comment on above: Performed By: #### L IPA #### [facility] ([facility]) [address] [place] [address] VIR XR CHEST 1 VWon 12-11-2024 XR CHEST 1 VW XR CHEST 1 VW CHEST 1 VIEW HISTORY: Tachycardia COMPARISON: 12/06/2024 IMPRESSION: * Low lung volumes. Moderate bibasilar opacities may represent atelectasis or pneumonia, increased since previous study. * No pleural effusions or pneumothorax. * Normal heart size. Finalized by Franklin Velázquez MD on 12/11/2024 9:19 PM Normal [facility] AMYLASEon 12-10-2024 Amylase [Catalytic activity/Vol] 73 U/L Normal 28-100 [facility] Comment on above: Performed By: #### A MYL #### [facility] ([facility]) [address] [place] [address] VIR BASIC METABOLIC PANELon 05 Anion gap [Moles/Vol] 10 mmol/L Normal 5-15 [facility] Comment on above: Performed By: #### A MYL #### [facility] ([facility]) [address] [place] [address] VIR Calcium [Mass/Vol] 9.6 mg/dL Normal 8.5-10.5 [facility] Comment on above: Performed By: #### A MYL #### [facility] ([facility]) [address] [place] [address] VIR Chloride [Moles/Vol] 96 mmol/L Low 98-109 [facility] Comment on above: Performed By: #### A MYL #### [facility] ([facility]) [address] [place] [address] VIR CO2 [Moles/Vol] 25 mmol/L Normal 22-32 [facility] Comment on above: Performed By: #### A MYL #### [facility] ([facility]) [address] [place] [address] VIR Creatinine [Mass/Vol] 0.67 mg/dL Normal 0.40-1.00 [facility] Comment on above: Result Comment: METH OD TRACEABLE TO IDMS STANDARD Performed By: #### A MYL #### [facility] ([facility]) [address] [place] [address] VIR EGFR (CKD-EPI) NON-RACE DEPENDENT >^90 Normal >=60 [facility] Comment on above: Result Comment: Repo rted eGFR is based on the CKD-EPI 2020 equation that does not use a race coefficient. Performed By: #### A MYL #### [facility] ([facility]) [address] [place] [address] VIR Glucose [Mass/Vol] 94 mg/dL Normal 65-99 [facility] Comment on above: Performed By: #### A MYL #### [facility] ([facility]) [address] [place] [address] VIR Potassium [Moles/Vol] 3.5 mmol/L Normal 3.5-5.0 [facility] Comment on above: Performed By: #### A MYL #### [facility] ([facility]) [address] [place] [address] VIR Sodium [Moles/Vol] 131 mmol/L Low 134-146 [facility] Comment on above: Performed By: #### A MYL #### [facility] ([facility]) [address] [place] [address] VIR Urea nitrogen [Mass/Vol] 7 mg/dL Normal 5-23 [facility] Comment on above: Performed By: #### A MYL #### [facility] ([facility]) [address] [place] [address] VIR CBC WITH AUTO DIFFERENTIALon 12-10-2024 BASOPHILS ABSOLUTE COUNT (10*3/UL) BY AUTOMATED COUNT 0.1 10*3/uL Normal [facility] Comment on above: Performed By: #### A MYL #### [facility] ([facility]) [address] [place] [address] VIR BASOPHILS RELATIVE PERCENT BY AUTOMATED COUNT 0.7 % Normal [facility] Comment on above: Performed By: #### A MYL #### [facility] ([facility]) [address] [place] [address] VIR CELLAVISION DIFFERENTIAL TYPE AUTOMATED DIFFERENTIAL Normal [facility] Comment on above: Performed By: #### A MYL #### [facility] ([facility]) [address] [place] [address] VIR Eosinophils (Bld) [#/Vol] 0.2 10*3/uL Normal [facility] Comment on above: Performed By: #### A MYL #### [facility] ([facility]) [address] [place] [address] VIR EOSINOPHILS RELATIVE PERCENT BY AUTOMATED COUNT 2.0 % Normal [facility] Comment on above: Performed By: #### A MYL #### [facility] ([facility]) [address] [place] [address] VIR Erythrocyte distribution width (RBC) [Ratio] 13.3 % Normal 11.5-15 [facility] Comment on above: Performed By: #### A MYL #### [facility] ([facility]) [address] [place] [address] VIR Hematocrit (Bld) [Volume fraction] 40.5 % Normal 35-47 [facility] Comment on above: Performed By: #### A MYL #### [facility] ([facility]) [address] [place] [address] VIR Hemoglobin (Bld) [Mass/Vol] 13.7 g/dL Normal 11.7-15.5 [facility] Comment on above: Performed By: #### A MYL #### [facility] ([facility]) [address] [place] [address] VIR LYMPHOCYTES ABSOLUTE COUNT (10*3/UL) BY AUTOMATED COUNT 1.1 10*3/uL Normal [facility] Comment on above: Performed By: #### A MYL #### [facility] ([facility]) [address] [place] [address] VIR LYMPHOCYTES RELATIVE PERCENT BY AUTOMATED COUNT 14.8 % Normal [facility] Comment on above: Performed By: #### A MYL #### [facility] ([facility]) [address] [place] [address] VIR MCH (RBC) [Entitic mass] 29.9 pg Normal 27-34 [facility] Comment on above: Performed By: #### A MYL #### [facility] ([facility]) [address] [place] [address] VIR MCHC (RBC) [Mass/Vol] 33.9 g/dL Normal 32-36 [facility] Comment on above: Performed By: #### A MYL #### [facility] ([facility]) [address] [place] [address] VIR MCV (RBC) [Entitic vol] 88 fL Normal 80-100 [facility] Comment on above: Performed By: #### A MYL #### [facility] ([facility]) [address] [place] [address] VIR MONOCYTES ABSOLUTE COUNT (10*3/UL) BY AUTOMATED COUNT 0.9 10*3/uL Normal [facility] Comment on above: Performed By: #### A MYL #### [facility] ([facility]) [address] [place] [address] VIR MONOCYTES RELATIVE PERCENT BY AUTOMATED COUNT 11.6 % Normal [facility] Comment on above: Performed By: #### A MYL #### [facility] ([facility]) [address] [place] [address] VIR NEUTROPHILS ABSOLUTE COUNT BY AUTOMATED COUNT 5.5 10*3/uL Normal [facility] Comment on above: Performed By: #### A MYL #### [facility] ([facility]) [address] [place] [address] VIR NEUTROPHILS RELATIVE PERCENT BY AUTOMATED COUNT 70.9 % Normal [facility] Comment on above: Performed By: #### A MYL #### [facility] ([facility]) [address] [place] [address] VIR Platelet mean volume (Bld) [Entitic vol] 10.2 fL Normal 7-12 [facility] Comment on above: Performed By: #### A MYL #### [facility] ([facility]) [address] [place] [address] VIR Platelets (Bld) [#/Vol] 293 10*3/uL Normal 150-450 [facility] Comment on above: Performed By: #### A MYL #### [facility] ([facility]) [address] [place] [address] VIR RBC COUNT 4.59 X10E12/L Normal 3.8-5.2 [facility] Comment on above: Performed By: #### A MYL #### [facility] ([facility]) [address] [place] [address] VIR WBC (Bld) [#/Vol] 7.7 10*3/uL Normal 4-11 [facility] Comment on above: Performed By: #### A MYL #### [facility] ([facility]) [address] [place] [address] VIR HEMOGLOBIN AND HEMATOCRIT, B LOODon 12-10-2024 Hematocrit (Bld) [Volume fraction] 37.5 % Normal 35-47 [facility] Comment on above: Performed By: #### A MYL #### [facility] ([facility]) [address] [place] [address] VIR Hemoglobin (Bld) [Mass/Vol] 12.7 g/dL Normal 11.7-15.5 [facility] Comment on above: Performed By: #### A MYL #### [facility] ([facility]) [address] [place] [address] VIR LIPASEon 12-10-2024 Lipase [Catalytic activity/Vol] 89 U/L High 11-82 [facility] Comment on above: Performed By: #### A MYL #### [facility] ([facility]) [address] [place] [address] VIR LIVER PANELon 12-10-2024 Albumin [Mass/Vol] 3.3 g/dL Normal 3.2-5.3 [facility] Comment on above: Performed By: #### A MYL #### [facility] ([facility]) [address] [place] [address] VIR ALP [Catalytic activity/Vol] 164 U/L High 39-130 [facility] Comment on above: Performed By: #### A MYL #### [facility] ([facility]) [address] [place] [address] VIR ALT [Catalytic activity/Vol] 62 U/L High <=31 [facility] Comment on above: Performed By: #### A MYL #### [facility] ([facility]) [address] [place] [address] VIR AST [Catalytic activity/Vol] 42 U/L High <=41 [facility] Comment on above: Performed By: #### A MYL #### [facility] ([facility]) [address] [place] [address] VIR Bilirubin [Mass/Vol] 2.8 mg/dL High 0.3-1.2 [facility] Comment on above: Performed By: #### A MYL #### [facility] ([facility]) [address] [place] [address] VIR Bilirubin.indirect [Mass/Vol] 1.3 mg/dL High <=0.4 [facility] Comment on above: Performed By: #### A MYL #### [facility] ([facility]) [address] [place] [address] VIR Protein [Mass/Vol] 6.7 g/dL Normal 6.0-8.0 [facility] Comment on above: Performed By: #### A MYL #### [facility] ([facility]) [address] [place] [address] VIR XR ABDOMEN AP 1 VWon 12-10-2 025 XR ABDOMEN AP 1 VW XR [...] Solis MD on 12/10/2024 8:47 AM Normal [facility] AMYLASEon 12-09-2024 Amylase [Catalytic activity/Vol] 90 U/L Normal 28-100 [facility] Comment on above: Performed By: #### A LCO #### [facility] ([facility]) [address] [place] [address] VIR BASIC METABOLIC PANELon Anion gap [Moles/Vol] 8 mmol/L Normal 5-15 [facility] Comment on above: Performed By: #### A LCO #### [facility] ([facility]) [address] [place] [address] VIR Calcium [Mass/Vol] 8.8 mg/dL Normal 8.5-10.5 [facility] Comment on above: Performed By: #### A LCO #### [facility] ([facility]) [address] [place] [address] VIR Chloride [Moles/Vol] 99 mmol/L Normal 98-109 [facility] Comment on above: Performed By: #### A LCO #### [facility] ([facility]) [address] [place] [address] VIR CO2 [Moles/Vol] 24 mmol/L Normal 22-32 [facility] Comment on above: Performed By: #### A LCO #### [facility] ([facility]) [address] [place] [address] VIR Creatinine [Mass/Vol] 0.63 mg/dL Normal 0.40-1.00 [facility] Comment on above: Result Comment: METH OD TRACEABLE TO IDMS STANDARD Performed By: #### A LCO #### [facility] ([facility]) [address] [place] [address] VIR EGFR (CKD-EPI) NON-RACE DEPENDENT >^90 Normal >=60 [facility] Comment on above: Result Comment: Repo rted eGFR is based on the CKD-EPI 2020 equation that does not use a race coefficient. Performed By: #### A LCO #### [facility] ([facility]) [address] [place] [address] VIR Glucose [Mass/Vol] 92 mg/dL Normal 65-99 [facility] Comment on above: Performed By: #### A LCO #### [facility] ([facility]) [address] [place] [address] VIR Potassium [Moles/Vol] 3.4 mmol/L Low 3.5-5.0 [facility] Comment on above: Performed By: #### A LCO #### [facility] ([facility]) [address] [place] [address] VIR Sodium [Moles/Vol] 131 mmol/L Low 134-146 [facility] Comment on above: Performed By: #### A LCO #### [facility] ([facility]) [address] [place] [address] VIR Urea nitrogen [Mass/Vol] 8 mg/dL Normal 5-23 [facility] Comment on above: Performed By: #### A LCO #### [facility] ([facility]) [address] [place] [address] VIR CBC WITH AUTO DIFFERENTIALon 12-09-2024 BASOPHILS ABSOLUTE COUNT (10*3/UL) BY AUTOMATED COUNT 0.1 10*3/uL Normal [facility] Comment on above: Performed By: #### A LCO #### [facility] ([facility]) [address] [place] [address] VIR BASOPHILS RELATIVE PERCENT BY AUTOMATED COUNT 1.0 % Normal [facility] Comment on above: Performed By: #### A LCO #### [facility] ([facility]) [address] [place] [address] VIR CELLAVISION DIFFERENTIAL TYPE AUTOMATED DIFFERENTIAL Normal [facility] Comment on above: Performed By: #### A LCO #### [facility] ([facility]) [address] [place] [address] VIR Eosinophils (Bld) [#/Vol] 0.1 10*3/uL Normal [facility] Comment on above: Performed By: #### A LCO #### [facility] ([facility]) [address] [place] [address] VIR EOSINOPHILS RELATIVE PERCENT BY AUTOMATED COUNT 1.4 % Normal [facility] Comment on above: Performed By: #### A LCO #### [facility] ([facility]) [address] [place] [address] VIR Erythrocyte distribution width (RBC) [Ratio] 13.2 % Normal 11.5-15 [facility] Comment on above: Performed By: #### A LCO #### [facility] ([facility]) [address] [place] [address] VIR Hematocrit (Bld) [Volume fraction] 38.3 % Normal 35-47 [facility] Comment on above: Performed By: #### A LCO #### [facility] ([facility]) [address] [place] [address] VIR Hemoglobin (Bld) [Mass/Vol] 13.2 g/dL Normal 11.7-15.5 [facility] Comment on above: Performed By: #### A LCO #### [facility] ([facility]) [address] [place] [address] VIR LYMPHOCYTES ABSOLUTE COUNT (10*3/UL) BY AUTOMATED COUNT 1.0 10*3/uL Normal [facility] Comment on above: Performed By: #### A LCO #### [facility] ([facility]) [address] [place] [address] VIR LYMPHOCYTES RELATIVE PERCENT BY AUTOMATED COUNT 12.4 % Normal [facility] Comment on above: Performed By: #### A LCO #### [facility] ([facility]) [address] [place] [address] VIR MCH (RBC) [Entitic mass] 30.5 pg Normal 27-34 [facility] Comment on above: Performed By: #### A LCO #### [facility] ([facility]) [address] [place] [address] VIR MCHC (RBC) [Mass/Vol] 34.5 g/dL Normal 32-36 [facility] Comment on above: Performed By: #### A LCO #### [facility] ([facility]) [address] [place] [address] VIR MCV (RBC) [Entitic vol] 89 fL Normal 80-100 [facility] Comment on above: Performed By: #### A LCO #### [facility] ([facility]) [address] [place] [address] VIR MONOCYTES ABSOLUTE COUNT (10*3/UL) BY AUTOMATED COUNT 0.7 10*3/uL Normal [facility] Comment on above: Performed By: #### A LCO #### [facility] ([facility]) [address] [place] [address] VIR MONOCYTES RELATIVE PERCENT BY AUTOMATED COUNT 8.9 % Normal [facility] Comment on above: Performed By: #### A LCO #### [facility] ([facility]) [address] [place] [address] VIR NEUTROPHILS ABSOLUTE COUNT BY AUTOMATED COUNT 6.1 10*3/uL Normal [facility] Comment on above: Performed By: #### A LCO #### [facility] ([facility]) [address] [place] [address] VIR NEUTROPHILS RELATIVE PERCENT BY AUTOMATED COUNT 76.3 % Normal [facility] Comment on above: Performed By: #### A LCO #### [facility] ([facility]) [address] [place] [address] VIR Platelet mean volume (Bld) [Entitic vol] 10.0 fL Normal 7-12 [facility] Comment on above: Performed By: #### A LCO #### [facility] ([facility]) [address] [place] [address] VIR Platelets (Bld) [#/Vol] 221 10*3/uL Normal 150-450 [facility] Comment on above: Performed By: #### A LCO #### [facility] ([facility]) [address] [place] [address] VIR RBC COUNT 4.33 X10E12/L Normal 3.8-5.2 [facility] Comment on above: Performed By: #### A LCO #### [facility] ([facility]) [address] [place] [address] VIR WBC (Bld) [#/Vol] 8.0 10*3/uL Normal 4-11 [facility] Comment on above: Performed By: #### A LCO #### [facility] ([facility]) [address] [place] [address] VIR HEMOGLOBIN AND HEMATOCRIT, B LOODon 12-09-2024 Hematocrit (Bld) [Volume fraction] 38.1 % Normal 35-47 [facility] Comment on above: Performed By: #### A MYL #### [facility] ([facility]) [address] [place] [address] VIR Hemoglobin (Bld) [Mass/Vol] 13.1 g/dL Normal 11.7-15.5 [facility] Comment on above: Performed By: #### A MYL #### [facility] ([facility]) [address] [place] [address] VIR LIPASEon 12-09-2024 Lipase [Catalytic activity/Vol] 113 U/L High 11-82 [facility] Comment on above: Performed By: #### A MYL #### [facility] ([facility]) [address] [place] [address] VIR LIVER PANELon 12-09-2024 Albumin [Mass/Vol] 3.2 g/dL Normal 3.2-5.3 [facility] Comment on above: Performed By: #### A LCO #### [facility] ([facility]) [address] [place] [address] VIR ALP [Catalytic activity/Vol] 96 U/L Normal 39-130 [facility] Comment on above: Performed By: #### A LCO #### [facility] ([facility]) [address] [place] [address] VIR ALT [Catalytic activity/Vol] 69 U/L High <=31 [facility] Comment on above: Performed By: #### A LCO #### [facility] ([facility]) [address] [place] [address] VIR AST [Catalytic activity/Vol] 33 U/L Normal <=41 [facility] Comment on above: Performed By: #### A LCO #### [facility] ([facility]) [address] [place] [address] VIR Bilirubin [Mass/Vol] 2.4 mg/dL High 0.3-1.2 [facility] Comment on above: Performed By: #### A LCO #### [facility] ([facility]) [address] [place] [address] VIR Bilirubin.indirect [Mass/Vol] 1.2 mg/dL High <=0.4 [facility] Comment on above: Performed By: #### A LCO #### [facility] ([facility]) [address] [place] [address] VIR Protein [Mass/Vol] 6.0 g/dL Normal 6.0-8.0 [facility] Comment on above: Performed By: #### A LCO #### [facility] ([facility]) [address] [place] [address] VIR AMYLASEon 12-08-2024 Amylase [Catalytic activity/Vol] 121 U/L High 28-100 [facility] Comment on above: Performed By: #### A LCO #### [facility] ([facility]) [address] [place] [address] VIR BASIC METABOLIC PANELon Anion gap [Moles/Vol] 10 mmol/L Normal 5-15 [facility] Comment on above: Performed By: #### C MP #### [facility] ([facility]) [address] [place] [address] VIR Calcium [Mass/Vol] 9.5 mg/dL Normal 8.5-10.5 [facility] Comment on above: Performed By: #### C MP #### [facility] ([facility]) [address] [place] [address] VIR Chloride [Moles/Vol] 98 mmol/L Normal 98-109 [facility] Comment on above: Performed By: #### C MP #### [facility] ([facility]) [address] [place] [address] VIR CO2 [Moles/Vol] 25 mmol/L Normal 22-32 [facility] Comment on above: Performed By: #### C MP #### [facility] ([facility]) [address] [place] [address] VIR Creatinine [Mass/Vol] 0.71 mg/dL Normal 0.40-1.00 [facility] Comment on above: Result Comment: METH OD TRACEABLE TO IDMS STANDARD Performed By: #### C MP #### [facility] ([facility]) [address] [place] [address] VIR EGFR (CKD-EPI) NON-RACE DEPENDENT >^90 Normal >=60 [facility] Comment on above: Result Comment: Repo rted eGFR is based on the CKD-EPI 2020 equation that does not use a race coefficient. Performed By: #### C MP #### [facility] ([facility]) [address] [place] [address] VIR Glucose [Mass/Vol] 94 mg/dL Normal 65-99 [facility] Comment on above: Performed By: #### C MP #### [facility] ([facility]) [address] [place] [address] VIR Potassium [Moles/Vol] 3.7 mmol/L Normal 3.5-5.0 [facility] Comment on above: Performed By: #### C MP #### [facility] ([facility]) [address] [place] [address] VIR Sodium [Moles/Vol] 133 mmol/L Low 134-146 [facility] Comment on above: Performed By: #### C MP #### [facility] ([facility]) [address] [place] [address] VIR Urea nitrogen [Mass/Vol] 9 mg/dL Normal 5-23 [facility] Comment on above: Performed By: #### C MP #### [facility] ([facility]) [address] [place] [address] VIR CBC WITH AUTO DIFFERENTIALon 12-08-2024 BASOPHILS ABSOLUTE COUNT (10*3/UL) BY AUTOMATED COUNT 0.1 10*3/uL Normal [facility] Comment on above: Performed By: #### A LCO #### [facility] ([facility]) [address] [place] [address] VIR BASOPHILS RELATIVE PERCENT BY AUTOMATED COUNT 0.6 % Normal [facility] Comment on above: Performed By: #### A LCO #### [facility] ([facility]) [address] [place] [address] VIR CELLAVISION DIFFERENTIAL TYPE AUTOMATED DIFFERENTIAL Normal [facility] Comment on above: Performed By: #### A LCO #### [facility] ([facility]) [address] [place] [address] VIR Eosinophils (Bld) [#/Vol] 0.0 10*3/uL Normal [facility] Comment on above: Performed By: #### A LCO #### [facility] ([facility]) [address] [place] [address] VIR EOSINOPHILS RELATIVE PERCENT BY AUTOMATED COUNT 0.5 % Normal [facility] Comment on above: Performed By: #### A LCO #### [facility] ([facility]) [address] [place] [address] VIR Erythrocyte distribution width (RBC) [Ratio] 13.4 % Normal 11.5-15 [facility] Comment on above: Performed By: #### A LCO #### [facility] ([facility]) [address] [place] [address] VIR Hematocrit (Bld) [Volume fraction] 41.0 % Normal 35-47 [facility] Comment on above: Performed By: #### A LCO #### [facility] ([facility]) [address] [place] [address] VIR Hemoglobin (Bld) [Mass/Vol] 13.9 g/dL Normal 11.7-15.5 [facility] Comment on above: Performed By: #### A LCO #### [facility] ([facility]) [address] [place] [address] VIR LYMPHOCYTES ABSOLUTE COUNT (10*3/UL) BY AUTOMATED COUNT 0.9 10*3/uL Normal [facility] Comment on above: Performed By: #### A LCO #### [facility] ([facility]) [address] [place] [address] VIR LYMPHOCYTES RELATIVE PERCENT BY AUTOMATED COUNT 8.9 % Normal [facility] Comment on above: Performed By: #### A LCO #### [facility] ([facility]) [address] [place] [address] VIR MCH (RBC) [Entitic mass] 30.4 pg Normal 27-34 [facility] Comment on above: Performed By: #### A LCO #### [facility] ([facility]) [address] [place] [address] VIR MCHC (RBC) [Mass/Vol] 33.9 g/dL Normal 32-36 [facility] Comment on above: Performed By: #### A LCO #### [facility] ([facility]) [address] [place] [address] VIR MCV (RBC) [Entitic vol] 89 fL Normal 80-100 [facility] Comment on above: Performed By: #### A LCO #### [facility] ([facility]) [address] [place] [address] VIR MONOCYTES ABSOLUTE COUNT (10*3/UL) BY AUTOMATED COUNT 0.7 10*3/uL Normal [facility] Comment on above: Performed By: #### A LCO #### [facility] ([facility]) [address] [place] [address] VIR MONOCYTES RELATIVE PERCENT BY AUTOMATED COUNT 6.9 % Normal [facility] Comment on above: Performed By: #### A LCO #### [facility] ([facility]) [address] [place] [address] VIR NEUTROPHILS ABSOLUTE COUNT BY AUTOMATED COUNT 8.4 10*3/uL Normal [facility] Comment on above: Performed By: #### A LCO #### [facility] ([facility]) [address] [place] [address] VIR NEUTROPHILS RELATIVE PERCENT BY AUTOMATED COUNT 83.1 % Normal [facility] Comment on above: Performed By: #### A LCO #### [facility] ([facility]) [address] [place] [address] VIR Platelet mean volume (Bld) [Entitic vol] 10.2 fL Normal 7-12 [facility] Comment on above: Result Comment: I-R Performed By: #### A LCO #### [facility] ([facility]) [address] [place] [address] VIR Platelets (Bld) [#/Vol] 185 10*3/uL Normal 150-450 [facility] Comment on above: Result Comment: I-R Performed By: #### A LCO #### [facility] ([facility]) [address] [place] [address] VIR RBC COUNT 4.59 X10E12/L Normal 3.8-5.2 [facility] Comment on above: Performed By: #### A LCO #### [facility] ([facility]) [address] [place] [address] VIR WBC (Bld) [#/Vol] 10.1 10*3/uL Normal 4-11 [facility] Comment on above: Performed By: #### A LCO #### [facility] ([facility]) [address] [place] [address] UROGRAMon 12-08-[address] UROGRAM *ADDENDUM*I sent a chat message which was confirmed with a reply from physician anesthesiologist assistant DENISSE Oviedo at approximately 8:00 AM and I also spoke with Dr. Shankar who I believe was from the trauma service taking care of the patient at approximately 8:00 AM. Finalized by Zane Ramirez MD on 12/08/2024 8:05 AM Normal [facility] HEMOGLOBIN AND HEMATOCRIT, B LOODon 12-08-2024 Hematocrit (Bld) [Volume fraction] 37.3 % Normal 35-47 [facility] Comment on above: Performed By: #### A LCO #### [facility] ([facility]) [address] [place] [address] VIR Hemoglobin (Bld) [Mass/Vol] 12.8 g/dL Normal 11.7-15.5 [facility] Comment on above: Performed By: #### A LCO #### [facility] ([facility]) [address] [place] [address] VIR LACTATE W/ REFLEXon 12-09-19 25 LACTATE W/REFLEX 1.7 mmol/L Normal 0.4-2.0 [facility] Comment on above: Order Comment: Resul t did not trigger repeat Lactate,re-order if needed. Performed By: #### A LCO #### [facility] ([facility]) [address] [place] [address] VIR LIPASEon 12-08-2024 Lipase [Catalytic activity/Vol] 162 U/L High 11-82 [facility] Comment on above: Performed By: #### A LCO #### [facility] ([facility]) [address] [place] [address] VIR LIVER PANELon 12-08-2024 Albumin [Mass/Vol] 3.4 g/dL Normal 3.2-5.3 [facility] Comment on above: Performed By: #### A LCO #### [facility] ([facility]) [address] [place] [address] VIR ALP [Catalytic activity/Vol] 91 U/L Normal 39-130 [facility] Comment on above: Performed By: #### A LCO #### [facility] ([facility]) [address] [place] [address] VIR ALT [Catalytic activity/Vol] 105 U/L High <=31 [facility] Comment on above: Performed By: #### A LCO #### [facility] ([facility]) [address] [place] [address] VIR AST [Catalytic activity/Vol] 44 U/L High <=41 [facility] Comment on above: Performed By: #### A LCO #### [facility] ([facility]) [address] [place] [address] VIR Bilirubin [Mass/Vol] 2.9 mg/dL High 0.3-1.2 [facility] Comment on above: Performed By: #### A LCO #### [facility] ([facility]) [address] [place] [address] VIR Bilirubin.indirect [Mass/Vol] 1.1 mg/dL High <=0.4 [facility] Comment on above: Performed By: #### A LCO #### [facility] ([facility]) [address] [place] [address] VIR Protein [Mass/Vol] 6.5 g/dL Normal 6.0-8.0 [facility] Comment on above: Performed By: #### A LCO #### [facility] ([facility]) [address] [place] [address] VIR AMYLASEon 12-07-2024 Amylase [Catalytic activity/Vol] 93 U/L Normal 28-100 [facility] Comment on above: Performed By: #### C MP #### [facility] ([facility]) [address] [place] [address] VIR Amylase [Catalytic activity/Vol] 93 U/L Normal 28-100 [facility] Comment on above: Performed By: #### C MP #### [facility] ([facility]) [address] [place] [address] VIR BASIC METABOLIC PANELon 05-0 Anion gap [Moles/Vol] 7 mmol/L Normal 5-15 [facility] Comment on above: Performed By: #### F IBR #### [facility] ([facility]) [address] [place] [address] VIR Calcium [Mass/Vol] 8.6 mg/dL Normal 8.5-10.5 [facility] Comment on above: Performed By: #### F IBR #### [facility] ([facility]) [address] [place] [address] VIR Chloride [Moles/Vol] 102 mmol/L Normal 98-109 [facility] Comment on above: Performed By: #### F IBR #### [facility] ([facility]) [address] [place] [address] VIR CO2 [Moles/Vol] 25 mmol/L Normal 22-32 [facility] Comment on above: Performed By: #### F IBR #### [facility] ([facility]) [address] [place] [address] VIR Creatinine [Mass/Vol] 0.56 mg/dL Normal 0.40-1.00 [facility] Comment on above: Result Comment: METH OD TRACEABLE TO IDMS STANDARD Performed By: #### F IBR #### [facility] ([facility]) [address] [place] [address] VIR EGFR (CKD-EPI) NON-RACE DEPENDENT >^90 Normal >=60 [facility] Comment on above: Result Comment: Repo rted eGFR is based on the CKD-EPI 2020 equation that does not use a race coefficient. Performed By: #### F IBR #### [facility] ([facility]) [address] [place] [address] VIR Glucose [Mass/Vol] 93 mg/dL Normal 65-99 [facility] Comment on above: Performed By: #### F IBR #### [facility] ([facility]) [address] [place] [address] VIR Potassium [Moles/Vol] 3.9 mmol/L Normal 3.5-5.0 [facility] Comment on above: Performed By: #### F IBR #### [facility] ([facility]) [address] [place] [address] VIR Sodium [Moles/Vol] 134 mmol/L Normal 134-146 [facility] Comment on above: Performed By: #### F IBR #### [facility] ([facility]) [address] [place] [address] VIR Urea nitrogen [Mass/Vol] 8 mg/dL Normal 5-23 [facility] Comment on above: Performed By: #### F IBR #### [facility] ([facility]) [address] [place] [address] VIR CBC WITH AUTO DIFFERENTIALon 12-07-2024 BASOPHILS ABSOLUTE COUNT (10*3/UL) BY AUTOMATED COUNT 0.1 10*3/uL Normal [facility] Comment on above: Performed By: #### F IBR #### [facility] ([facility]) [address] [place] [address] VIR BASOPHILS RELATIVE PERCENT BY AUTOMATED COUNT 0.4 % Normal [facility] Comment on above: Performed By: #### F IBR #### [facility] ([facility]) [address] [place] [address] VIR CELLAVISION DIFFERENTIAL TYPE AUTOMATED DIFFERENTIAL Normal [facility] Comment on above: Performed By: #### F IBR #### [facility] ([facility]) [address] [place] [address] VIR Eosinophils (Bld) [#/Vol] 0.0 10*3/uL Normal [facility] Comment on above: Performed By: #### F IBR #### [facility] ([facility]) [address] [place] [address] VIR EOSINOPHILS RELATIVE PERCENT BY AUTOMATED COUNT 0.2 % Normal [facility] Comment on above: Performed By: #### F IBR #### [facility] ([facility]) [address] [place] [address] VIR Erythrocyte distribution width (RBC) [Ratio] 13.4 % Normal 11.5-15 [facility] Comment on above: Performed By: #### F IBR #### [facility] ([facility]) [address] [place] [address] VIR Hematocrit (Bld) [Volume fraction] 42.1 % Normal 35-47 [facility] Comment on above: Performed By: #### F IBR #### [facility] ([facility]) [address] [place] [address] VIR Hemoglobin (Bld) [Mass/Vol] 14.2 g/dL Normal 11.7-15.5 [facility] Comment on above: Performed By: #### F IBR #### [facility] ([facility]) [address] [place] [address] VIR LYMPHOCYTES ABSOLUTE COUNT (10*3/UL) BY AUTOMATED COUNT 0.7 10*3/uL Normal [facility] Comment on above: Performed By: #### F IBR #### [facility] ([facility]) [address] [place] [address] VIR LYMPHOCYTES RELATIVE PERCENT BY AUTOMATED COUNT 5.6 % Normal [facility] Comment on above: Performed By: #### F IBR #### [facility] ([facility]) [address] [place] [address] VIR MCH (RBC) [Entitic mass] 29.7 pg Normal 27-34 [facility] Comment on above: Performed By: #### F IBR #### [facility] ([facility]) [address] [place] [address] VIR MCHC (RBC) [Mass/Vol] 33.7 g/dL Normal 32-36 [facility] Comment on above: Performed By: #### F IBR #### [facility] ([facility]) [address] [place] [address] VIR MCV (RBC) [Entitic vol] 88 fL Normal 80-100 [facility] Comment on above: Performed By: #### F IBR #### [facility] ([facility]) [address] [place] [address] VIR MONOCYTES ABSOLUTE COUNT (10*3/UL) BY AUTOMATED COUNT 0.7 10*3/uL Normal [facility] Comment on above: Performed By: #### F IBR #### [facility] ([facility]) [address] [place] [address] VIR MONOCYTES RELATIVE PERCENT BY AUTOMATED COUNT 5.5 % Normal [facility] Comment on above: Performed By: #### F IBR #### [facility] ([facility]) [address] [place] [address] VIR NEUTROPHILS ABSOLUTE COUNT BY AUTOMATED COUNT 11.1 10*3/uL Normal [facility] Comment on above: Performed By: #### F IBR #### [facility] ([facility]) [address] [place] [address] VIR NEUTROPHILS RELATIVE PERCENT BY AUTOMATED COUNT 88.3 % Normal [facility] Comment on above: Performed By: #### F IBR #### [facility] ([facility]) [address] [place] [address] VIR Platelet mean volume (Bld) [Entitic vol] 10.4 fL Normal 7-12 [facility] Comment on above: Performed By: #### F IBR #### [facility] ([facility]) [address] [place] [address] VIR Platelets (Bld) [#/Vol] 127 10*3/uL Low 150-450 [facility] Comment on above: Performed By: #### F IBR #### [facility] ([facility]) [address] [place] [address] VIR RBC COUNT 4.78 X10E12/L Normal 3.8-5.2 [facility] Comment on above: Performed By: #### F IBR #### [facility] ([facility]) [address] [place] [address] VIR WBC (Bld) [#/Vol] 12.6 10*3/uL High 4-11 [facility] Comment on above: Performed By: #### F IBR #### [facility] ([facility]) [address] [place] [address] VIR HEMOGLOBIN AND HEMATOCRIT, B LOODon 12-07-2024 Hematocrit (Bld) [Volume fraction] 41.4 % Normal 35-47 [facility] Comment on above: Performed By: #### C MP #### [facility] ([facility]) [address] [place] [address] VIR Hemoglobin (Bld) [Mass/Vol] 13.8 g/dL Normal 11.7-15.5 [facility] Comment on above: Performed By: #### C MP #### [facility] ([facility]) [address] [place] [address] VIR LACTATE W/ REFLEXon 12-08-19 25 LACTATE W/REFLEX 0.6 mmol/L Normal 0.4-2.0 [facility] Comment on above: Order Comment: Resul t did not trigger repeat Lactate,re-order if needed. Performed By: #### C MP #### [facility] ([facility]) [address] [place] [address] VIR LACTATE W/REFLEX 1.4 mmol/L Normal 0.4-2.0 [facility] Comment on above: Order Comment: Resul t did not trigger repeat Lactate,re-order if needed. Performed By: #### C MP #### [facility] ([facility]) [address] [place] [address] VIR LIPASEon 12-07-2024 Lipase [Catalytic activity/Vol] 103 U/L High 11-82 [facility] Comment on above: Performed By: #### C MP #### [facility] ([facility]) [address] [place] [address] VIR Lipase [Catalytic activity/Vol] 93 U/L High 11-82 [facility] Comment on above: Performed By: #### C MP #### [facility] ([facility]) [address] [place] [address] VIR LIVER PANELon 12-07-2024 Albumin [Mass/Vol] 3.4 g/dL Normal 3.2-5.3 [facility] Comment on above: Performed By: #### F IBR #### [facility] ([facility]) [address] [place] [address] VIR ALP [Catalytic activity/Vol] 86 U/L Normal 39-130 [facility] Comment on above: Performed By: #### F IBR #### [facility] ([facility]) [address] [place] [address] VIR ALT [Catalytic activity/Vol] 150 U/L High <=31 [facility] Comment on above: Performed By: #### F IBR #### [facility] ([facility]) [address] [place] [address] VIR AST [Catalytic activity/Vol] 77 U/L High <=41 [facility] Comment on above: Performed By: #### F IBR #### [facility] ([facility]) [address] [place] [address] VIR Bilirubin [Mass/Vol] 2.3 mg/dL High 0.3-1.2 [facility] Comment on above: Performed By: #### F IBR #### [facility] ([facility]) [address] [place] [address] VIR Bilirubin.indirect [Mass/Vol] 0.9 mg/dL High <=0.4 [facility] Comment on above: Performed By: #### F IBR #### [facility] ([facility]) [address] [place] [address] VIR Protein [Mass/Vol] 5.8 g/dL Low 6.0-8.0 [facility] Comment on above: Performed By: #### F IBR #### [facility] ([facility]) [address] [place] [address] VIR TROPONIN I, HIGH SENSITIVITY on 12-07-2024 TROPONIN I, HIGH SENSITIVITY 48 ng/L High <16 [facility] Comment on above: Order Comment: [place] tions of hs-Troponin may be due to causesother than myocardial ischemia.Recommend serial hs-Troponin testing be performed.For the initial evaluation and management of chestpain patients, refer to the algorithms linked below.Emergency Patient:[email or web address] Performed By: #### C MP #### [facility] ([facility]) [address] [place] [address] VIR AMYLASEon 12-06-2024 Amylase [Catalytic activity/Vol] 105 U/L High 28-100 [facility] Comment on above: Performed By: #### F IBR #### [facility] ([facility]) [address] [place] [address] VIR BASIC METABOLIC PANELon 11-09 Anion gap [Moles/Vol] 8 mmol/L Normal 5-15 [facility] Comment on above: Performed By: #### P TT #### [facility] ([facility]) [address] [place] [address] VIR Calcium [Mass/Vol] 8.8 mg/dL Normal 8.5-10.5 [facility] Comment on above: Performed By: #### P TT #### [facility] ([facility]) [address] [place] [address] VIR Chloride [Moles/Vol] 103 mmol/L Normal 98-109 [facility] Comment on above: Performed By: #### P TT #### [facility] ([facility]) [address] [place] [address] VIR CO2 [Moles/Vol] 26 mmol/L Normal 22-32 [facility] Comment on above: Performed By: #### P TT #### [facility] ([facility]) [address] [place] [address] VIR Creatinine [Mass/Vol] 0.81 mg/dL Normal 0.40-1.00 [facility] Comment on above: Result Comment: METH OD TRACEABLE TO IDMS STANDARD Performed By: #### P TT #### [facility] ([facility]) [address] [place] [address] VIR EGFR (CKD-EPI) NON-RACE DEPENDENT >^90 Normal >=60 [facility] Comment on above: Result Comment: Repo rted eGFR is based on the CKD-EPI 2020 equation that does not use a race coefficient. Performed By: #### P TT #### [facility] ([facility]) [address] [place] [address] VIR Glucose [Mass/Vol] 90 mg/dL Normal 65-99 [facility] Comment on above: Performed By: #### P TT #### [facility] ([facility]) [address] [place] [address] VIR Potassium [Moles/Vol] 3.7 mmol/L Normal 3.5-5.0 [facility] Comment on above: Performed By: #### P TT #### [facility] ([facility]) [address] [place] [address] VIR Sodium [Moles/Vol] 137 mmol/L Normal 134-146 [facility] Comment on above: Performed By: #### P TT #### [facility] ([facility]) 0 [address] [place] [address] VIR Urea nitrogen [Mass/Vol] 9 mg/dL Normal 5-23 [facility] Comment on above: Performed By: #### P TT #### [facility] ([facility]) [address] [place] [address] VIR BLOOD GAS, ARTERIALon 2024 BASE,DEFICIT -1.0 mmol/L Low 0.0-2.0 [facility] Comment on above: Performed By: #### P TT #### [facility] ([facility]) [address] [place] [address] VIR HCO3 (Bld) [Moles/Vol] 24.0 mmol/L Normal 22.0-26.0 [facility] Comment on above: Performed By: #### P TT #### [facility] ([facility]) [address] [place] [address] VIR INSP. O2 CONC. 40 % Normal [facility] Comment on above: Performed By: #### P TT #### [facility] ([facility]) [address] [place] [address] VIR Oxygen saturation in Blood 95.0 % Normal >90.0 [facility] Comment on above: Performed By: #### P TT #### [facility] ([facility]) [address] [place] [address] VIR PCO2 ARTERIAL 41.1 mmHg Normal 35.0-45.0 [facility] Comment on above: Performed By: #### P TT #### [facility] ([facility]) [address] [place] [address] VIR PH ARTERIAL 7.374 Normal 7.350-7.450 [facility] Comment on above: Performed By: #### P TT #### [facility] ([facility]) [address] [place] [address] VIR PO2 ARTERIAL 76 mmHg Low 80-100 [facility] Comment on above: Performed By: #### P TT #### [facility] ([facility]) [address] [place] [address] VIR POC JACKELINE'S TEST N/A Normal [facility] Comment on above: Performed By: #### P TT #### [facility] ([facility]) [address] [place] [address] VIR SAMPLE SITE R Rad [facility] Comment on above: Performed By: #### P TT #### [facility] ([facility]) [address] [place] [address] VIR SAMPLE TYPE ARTERIAL Normal [facility] Comment on above: Performed By: #### P TT #### [facility] ([facility]) [address] [place] [address] VIR SOURCE OF OXYGEN Vent [facility] Comment on above: Performed By: #### P TT #### [facility] ([facility]) [address] [place] [address] VIR CBC WITH AUTO DIFFERENTIALon 12-06-2024 BASOPHILS ABSOLUTE COUNT (10*3/UL) BY AUTOMATED COUNT 0.0 10*3/uL [facility] Comment on above: Performed By: #### P TT #### [facility] ([facility]) [address] [place] [address] VIR BASOPHILS RELATIVE PERCENT BY AUTOMATED COUNT 0.1 % [facility] Comment on above: Performed By: #### P TT #### [facility] ([facility]) [address] [place] [address] VIR CELLAVISION DIFFERENTIAL TYPE AUTOMATED DIFFERENTIAL [facility] Comment on above: Performed By: #### P TT #### [facility] ([facility]) [address] [place] [address] VIR Eosinophils (Bld) [#/Vol] 0.0 10*3/uL [facility] Comment on above: Performed By: #### P TT #### [facility] ([facility]) [address] [place] [address] VIR EOSINOPHILS RELATIVE PERCENT BY AUTOMATED COUNT 0.0 % Normal [facility] Comment on above: Performed By: #### P TT #### [facility] ([facility]) [address] [place] [address] VIR Erythrocyte distribution width (RBC) [Ratio] 13.4 % Normal 11.5-15 [facility] Comment on above: Performed By: #### P TT #### [facility] ([facility]) [address] [place] [address] VIR Hematocrit (Bld) [Volume fraction] 42.0 % Normal 35-47 [facility] Comment on above: Performed By: #### P TT #### [facility] ([facility]) [address] [address] [place] [address] VIR Hemoglobin (Bld) [Mass/Vol] 14.2 g/dL Normal 11.7-15.5 [facility] Comment on above: Performed By: #### P TT #### [facility] ([facility]) [address] [place] [address] VIR LYMPHOCYTES ABSOLUTE COUNT (10*3/UL) BY AUTOMATED COUNT 0.6 10*3/uL Normal [facility] Comment on above: Performed By: #### P TT #### [facility] ([facility]) [address] [facility] [address] [place] [address] VIR LYMPHOCYTES RELATIVE PERCENT BY AUTOMATED COUNT 3.7 % Normal [facility] Comment on above: Performed By: #### P TT #### [facility] ([facility]) [address] [place] [address] VIR MCH (RBC) [Entitic mass] 30.0 pg Normal 27-34 [facility] Comment on above: Performed By: #### P TT #### [facility] ([facility]) [address] [place] [address] VIR MCHC (RBC) [Mass/Vol] 33.7 g/dL Normal 32-36 [facility] Comment on above: Performed By: #### P TT #### [facility] ([facility]) [address] [place] [address] VIR MCV (RBC) [Entitic vol] 89 fL Normal 80-100 [facility] Comment on above: Performed By: #### P TT #### [facility] ([facility]) [address] [place] [address] VIR MONOCYTES ABSOLUTE COUNT (10*3/UL) BY AUTOMATED COUNT 1.4 10*3/uL Normal [facility] Comment on above: Performed By: #### P TT #### [facility] ([facility]) [address] [place] [address] VIR MONOCYTES RELATIVE PERCENT BY AUTOMATED COUNT 8.1 % Normal [facility] Comment on above: Performed By: #### P TT #### [facility] ([facility]) [address] [place] [address] VIR NEUTROPHILS ABSOLUTE COUNT BY AUTOMATED COUNT 15.5 10*3/uL Normal [facility] Comment on above: Performed By: #### P TT #### [facility] ([facility]) [address] [place] [address] VIR NEUTROPHILS RELATIVE PERCENT BY AUTOMATED COUNT 88.1 % Normal [facility] Comment on above: Performed By: #### P TT #### [facility] ([facility]) [address] [place] [address] VIR Platelet mean volume (Bld) [Entitic vol] 10.7 fL Normal 7-12 [facility] Comment on above: Performed By: #### P TT #### [facility] ([facility]) [address] [place] [address] VIR Platelets (Bld) [#/Vol] 145 10*3/uL Low 150-450 [facility] Comment on above: Performed By: #### P TT #### [facility] ([facility]) [address] [place] [address] VIR RBC COUNT 4.71 X10E12/L Normal 3.8-5.2 [facility] Comment on above: Performed By: #### P TT #### [facility] ([facility]) [address] [place] [address] VIR WBC (Bld) [#/Vol] 17.6 10*3/uL High 4-11 [facility] Comment on above: Performed By: #### P TT #### [facility] ([facility]) [address] [place] [address] VIR LACTATE W/ REFLEXon 12-07-19 25 LACTATE W/REFLEX 1.0 mmol/L Normal 0.4-2.0 [facility] Comment on above: Order Comment: Resul t did not trigger repeat Lactate,re-order if needed. Performed By: #### F IBR #### [facility] ([facility]) [address] [place] [address] VIR LIPASEon 12-06-2024 Lipase [Catalytic activity/Vol] 82 U/L Normal 11-82 [facility] Comment on above: Performed By: #### F IBR #### [facility] ([facility]) [address] [place] [address] VIR LIVER PANELon 12-06-2024 Albumin [Mass/Vol] 3.5 g/dL Normal 3.2-5.3 [facility] Comment on above: Performed By: #### F IBR #### [facility] ([facility]) [address] [place] [address] VIR ALP [Catalytic activity/Vol] 67 U/L Normal 39-130 [facility] Comment on above: Performed By: #### F IBR #### [facility] ([facility]) [address] [place] [address] VIR ALT [Catalytic activity/Vol] 216 U/L High <=31 [facility] Comment on above: Performed By: #### F IBR #### [facility] ([facility]) [address] [place] [address] VIR AST [Catalytic activity/Vol] 133 U/L High <=41 [facility] Comment on above: Performed By: #### F IBR #### [facility] ([facility]) [address] [place] [address] VIR Bilirubin [Mass/Vol] 1.9 mg/dL High 0.3-1.2 [facility] Comment on above: Performed By: #### F IBR #### [facility] ([facility]) [address] [place] [address] VIR Bilirubin.indirect [Mass/Vol] 1.0 mg/dL High <=0.4 [facility] Comment on above: Performed By: #### F IBR #### [facility] ([facility]) [address] [place] [address] VIR Protein [Mass/Vol] 5.8 g/dL Low 6.0-8.0 [facility] Comment on above: Performed By: #### F IBR #### [facility] ([facility]) [address] [place] [address] VIR MR MRCP WITH MRI ABD W [...] Gomez DO on 12/06/2024 10:06 AM Normal [facility] , URINEon Beta HCG ( test) Ql (U) Negative Normal Negative [facility] Comment on above: Performed By: #### P TT #### [facility] ([facility]) [address] [place] [address] VIR TROPONIN I, HIGH SENSITIVITY on 12-06-2024 TROPONIN I, HIGH SENSITIVITY 103 ng/L High <16 [facility] Comment on above: Order Comment: [place] tions of hs-Troponin may be due to causesother than myocardial ischemia.Recommend serial hs-Troponin testing be performed.For the initial evaluation and management of chestpain patients, refer to the algorithms linked below.Emergency Patient:[email or web address]:[email or web address] Performed By: #### F IBR #### [facility] ([facility]) [address] [place] [address] VIR TROPONIN I, HIGH SENSITIVITY 98 ng/L High <16 [facility] Comment on above: Order Comment: [place] tions of hs-Troponin may be due to causesother than myocardial ischemia.Recommend serial hs-Troponin testing be performed.For the initial evaluation and management of chestpain patients, refer to the algorithms linked below.Emergency Patient:[email or web address]:[email or web address] Performed By: #### F IBR #### [facility] ([facility]) [address] [place] [address] VIR XR ABD NG TUBE PLACEMENT 1 [...] Antonio MD on 12/06/2024 5:43 AM Normal [facility] XR CHEST 1 VWon 12-06-2024 XR CHEST [...] Antonio MD on 12/06/2024 5:45 AM Normal [facility] AMYLASEon 12-05-2024 Amylase [Catalytic activity/Vol] 69 U/L Normal 28-100 [facility] Comment on above: Performed By: #### P INR #### [facility] ([facility]) [address] [place] [address] VIR APTTon 12-05-2024 aPTT Coag (Bld) [Time] 22 s Low 26-37 [facility] Comment on above: Performed By: #### C BCA #### [facility] ([facility]) [address] [place] [address] VIR BASIC METABOLIC PANELon 11-08 Anion gap [Moles/Vol] 10 mmol/L Normal 5-15 [facility] Comment on above: Performed By: #### C BCA #### [facility] ([facility]) [address] [place] [address] VIR Calcium [Mass/Vol] 9.3 mg/dL Normal 8.5-10.5 [facility] Comment on above: Performed By: #### C BCA #### [facility] ([facility]) [address] [place] [address] VIR Chloride [Moles/Vol] 105 mmol/L Normal 98-109 [facility] Comment on above: Performed By: #### C BCA #### [facility] ([facility]) [address] [place] [address] VIR CO2 [Moles/Vol] 23 mmol/L Normal 22-32 [facility] Comment on above: Performed By: #### C BCA #### [facility] ([facility]) [address] [place] [address] VIR Creatinine [Mass/Vol] 0.77 mg/dL Normal 0.40-1.00 [facility] Comment on above: Result Comment: METH OD TRACEABLE TO IDMS STANDARD Performed By: #### C BCA #### [facility] ([facility]) [address] [place] [address] VIR EGFR (CKD-EPI) NON-RACE DEPENDENT >^90 Normal >=60 [facility] Comment on above: Result Comment: Repo rted eGFR is based on the CKD-EPI 2020 equation that does not use a race coefficient. Performed By: #### C BCA #### [facility] ([facility]) [address] [place] [address] VIR Glucose [Mass/Vol] 103 mg/dL High 65-99 [facility] Comment on above: Performed By: #### C BCA #### [facility] ([facility]) [address] [place] [address] VIR Potassium [Moles/Vol] 4.5 mmol/L Normal 3.5-5.0 [facility] Comment on above: Performed By: #### C BCA #### [facility] ([facility]) [address] [place] [address] VIR Sodium [Moles/Vol] 138 mmol/L Normal 134-146 [facility] Comment on above: Performed By: #### C BCA #### [facility] ([facility]) [address] [place] [address] VIR Urea nitrogen [Mass/Vol] 12 mg/dL Normal 5-23 [facility] Comment on above: Performed By: #### C BCA #### [facility] ([facility]) [address] [place] [address] VIR CBC WITH AUTO DIFFERENTIALon 12-05-2024 BASOPHILS ABSOLUTE COUNT (10*3/UL) BY AUTOMATED COUNT 0.1 10*3/uL Normal [facility] Comment on above: Result Comment: This is an appended report. These results have been appended to a previously preliminary verified report. Performed By: #### P INR #### [facility] ([facility]) [address] [place] [address] VIR BASOPHILS RELATIVE PERCENT BY AUTOMATED COUNT 0.5 % Normal [facility] Comment on above: Result Comment: This is an appended report. These results have been appended to a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 CT cervical spine wo conon 0 12-04-2024 [place] [address] CT Scan Report Signed Patient: Misty Elliott MR#: [id number] : 1995 Acct:[id number] Age/Sex: 29 / F ADM Date: 12/04/24 Loc: ER Room: Type: [facility] ER Attending Dr: Copies to: Dilia Cleary [...] FRACTURE Impression dictated by: Justino Tavera Jr., D.O. 12/04/2024 8:57 AM Dictation Location: [facility]-22 Transcribed By: DAVID 12/04/24 0857 Dictated By: Justino Tavera Jr, DO 12/04/24 0855 Signed By: 12/04/24 0857 Normal [facility] CT head/brain wo conon 12-04 CT head/brain wo con [place] [id number] CT Scan Report Signed Patient: Misty Elliott MR#: [id number] : 1995 Acct:[id number] Age/Sex: 29 / F ADM Date: 12/04/24 Loc: ER Room: Type: [facility] ER Attending Dr: Copies to: Dilia Cleary [...] ABNORMALITY. Impression dictated by: Justino Tavera Jr., Ryan 12/04/2024 9:03 AM Dictation Location: [place] [address] Transcribed By: [facility] 12/04/24 0903 Dictated By: Justino Tavera Jr, DO 12/04/24 0901 Signed By: 12/04/24 09 Normal [facility] Calcium [Mass/volume] in Ser um or PlasmaOrdered By: Dilia Cleary on 12-04-2024 Calcium [Mass/Vol] Calcium [Mass/volume ] in Serum or Plasma 8.6-10.[address] [facility] Calcium [Mass/Vol] 9.0 mg/dL Normal 8.6-10.3 [facility] Comment on above: Performed By: #### C MP, ETOH, LIPASE, CBC ####[facility] [id number] [place] [id number] [facility] [[email or web address]] Carbon dioxide, total [Moles /volume] in Serum or PlasmaOrdered By: Dilia Cleary on 12-04-2024 CO2 [Moles/Vol] Carbon dioxide, tota l [Moles/volume] in Serum or Plasma 21.0-31.[address] [facility] CO2 [Moles/Vol] 22.5 mmol/L Normal 21.0-31.0 [facility] Comment on above: Performed By: #### C MP, ETOH, LIPASE, CBC ####[place] [address] [address] Chloride [Moles/volume] in S rudy or PlasmaOrdered By: Dilia Cleary on 12-04-2024 Chloride [Moles/Vol] Chloride [Moles/volume] in Serum or Plasma High 98-[address] [facility] Chloride [Moles/Vol] 109 mmol/L High 98-107 [facility] Comment on above: Performed By: #### C MP, ETOH, LIPASE, CBC ####[place] [address] [address] Complete Blood Count Auto Di ffon 12-04-2024 Mean Corpuscular HGB Conc 33.8 g/dL Normal 32.0-35.0 [facility] Comment on above: Performed By: #### C MP, ETOH, LIPASE, CBC #### [facility] [address] Monocytes/100 WBC (Bld) 19.80 % Normal 0.00-20.00 [facility] Comment on above: Result Comment: For adults in ED, MDW > 20.0 may be associated with a higher risk of sepsis during the first 12 hrs of hospital admission Performed By: #### C MP, ETOH, LIPASE, CBC #### [facility] [address] NRBC% 0.1 /100{WBC} Normal 0-0.5 [facility] Comment on above: Performed By: #### C MP, ETOH, LIPASE, CBC #### [facility] [address] Comprehensive Metabolic Pane jaison 12-04-2024 Albumin [Mass/Vol] 4.1 g/dL Normal 3.5-5.7 [facility] Comment on above: Performed By: #### C MP, ETOH, LIPASE, CBC ####[address] Creatinine [facility]r Cal[facility] Pharmacy 88.08 Normal [facility] Comment on above: Performed By: #### C MP, ETOH, LIPASE, CBC ####[facility] [id number] [place] [id number] [facility] [[email or web address]] GFR/1.73 sq M.predicted MDRD (S/P/Bld) [Vol rate/Area] mL/min/{1.73_m2} Normal [facility] Comment on above: Performed By: #### C MP, ETOH, LIPASE, CBC ####[place] [address] [place] [id number] [facility] [[email or web address]] Creatinine [Mass/volume] in Serum or PlasmaOrdered By: Dilia Cleary on 12-04-2024 Creatinine [Mass/Vol] Creatinine [Mass/volume] in Serum or Plasma 0.60-1.[address] [facility] Creatinine [Mass/Vol] 0.80 mg/dL Normal 0.60-1.[address] [facility] Comment on above: Performed By: #### C MP, ETOH, LIPASE, CBC ####[place] [address] [place] [id number] [facility] [[email or web address]] DRUG SCREEN, URINEon 025 AMPHETAMINE/METHAMP Negative Normal Negative [facility] Comment on above: Order Comment: Confi rmation available upon request. Result Comment: AMPH /METH screening cut off = 1000 ng/mL Performed By: #### D JOYCE ####[facility] ([facility])[address] [address] VIR BARBITURATES Negative Normal Negative [facility] Comment on above: Order Comment: Confi rmation available upon request. Result Comment: Nicole iturates screening cut off value = 200 ng/mL Performed By: #### D JOYCE ####[facility] ([facility])[address] [address] VIR BENZODIAZEPINES Positive Abnormal Negative [facility] Comment on above: Order Comment: Confi rmation available upon request. Result Comment: Chandana odiazepines screening cut off value = 200 ng/mL Performed By: #### D JOYCE ####[facility] ([facility])[address], [place] [address] VIR CANNABINOIDS Positive Abnormal Negative [facility] Comment on above: Order Comment: Confi rmation available upon request. Result Comment: Larua abinoids/THC screening cut off value = 50 ng/mL Performed By: #### D JOYCE ####[facility] ([facility])[address], [place] [address] VIR COCAINE METABOLITE Negative Normal Negative [facility] Comment on above: Order Comment: Confi rmation available upon request. Result Comment: Coca ine screening cut off value = 300 ng/mL Performed By: #### D JOYCE ####[facility] ([facility])[address] [facility] [address], [place] [address] VIR ECSTASY Negative Normal Negative [facility] Comment on above: Order Comment: Confi rmation available upon request. Result Comment: Ecst asy screening cut off value = 500 ng/mL Performed By: #### D JOYCE ####[facility] ([facility])[address] [facility] [address], [place] [address] VIR METHADONE Negative Normal Negative [facility] Comment on above: Order Comment: Confi rmation available upon request. Result Comment: Meth adone screening cut off value = 300 ng/mL. Performed By: #### D JOYCE ####[facility] ([facility])[address] [facility] [address], [place] [address] VIR OPIATES Positive Abnormal Negative [facility] Comment on above: Order Comment: Confi rmation available upon request. Result Comment: Opia jamar screening cut off value = 300 ng/mL This test is used for the detection of codeine, hydrocodone (>1000 ng/mL), morphine and hydromorphone (>900 ng/mL) in urine. Performed By: #### D JOYCE ####[facility] ([facility])[address] [facility] [address], [place] [address] VIR OXYCODONE Negative Normal Negative [facility] Comment on above: Order Comment: Confi rmation available upon request. Result Comment: Oxyc odone screening cut off value = 300 ng/mL This test is used for the detection of oxycodone and oxymorphone in urine. Performed By: #### D JOYCE ####[facility] ([facility])[address] [address] VIR PHENCYCLIDINE Negative Normal Negative [facility] Comment on above: Order Comment: Chiki rmnitin available upon request. Result Comment: Phen cyclidine screening cut off value = 25 ng/mL Performed By: #### D JOYCE ####[facility] ([facility])[address] [address] VIR ECG 12 lead ECGon 12-04-2024 ECG 12 lead ECG [facility] [place] [address] Electrocardiograph Report Signed Patient: Misty Elliott MR#: [id number] : 1995 Acct:[id number] Age/Sex: 29 / F ADM Date: 12/04/24 Loc: ER Room: Type: [facility] ER Attending Dr: Ordering Provider: Dilia Cleary [...] : 469 ms Sinus bradycardia with short DC Otherwise normal ECG No previous ECGs available Confirmed by Dilia Cleayr ([id number]) on 12/04/2024 3:26:35 PM Referred By: Electronically Signed By: Dilia Cleary Transcribed By: MUS Signed By Dilia Cleary Do 5 1526 Normal [facility] ETHANOLon 12-04-2024 Ethanol [Mass/Vol] mg/dL Normal <=0.080 [facility] Comment on above: Result Comment: This report is intended for use in clinical monitoring or management of patients. Performed By: #### A LCO #### [facility] ([facility]) [address] [place] [address] VIR Eosinophils Auto (Bld) [#/Vo l]Ordered By: Dilia Cleary on 12-04-2024 Eosinophils (Bld) [#/Vol] Automated eosinophil count 0.0-0.[address] [facility] Eosinophils [#/volume] in Bl ood by Automated countOrdered By: Dilia Cleary on 12-04-2024 Eosinophils (Bld) [#/Vol] 0.1 10*3/uL Normal 0.0-0.[address] [facility] Comment on above: Performed By: #### C MP, ETOH, LIPASE, CBC #### [facility] [address] [place] [address] [place] Eosinophils/100 WBC Auto (Bl d)Ordered By: Dilia Cleary on 12-04-2024 Eosinophils/100 WBC (Bld) Automated eosinophil % . [facility] Eosinophils/100 leukocytes i n Blood by Automated countOrdered By: Dilia Cleary on 12-04-2024 Eosinophils/100 WBC (Bld) 0.6 % Normal . [facility] Comment on above: Performed By: #### C MP, ETOH, LIPASE, CBC #### [facility] [address] Erythrocyte distribution wid th Auto (RBC) [Ratio]Ordered By: Dilia Cleary on 12-04-2024 Erythrocyte distribution width (RBC) [Ratio] Erythrocyte distribution width [Ratio] by Automated count 11.9-15.[address] [facility] Erythrocyte distribution wid th [Ratio] by Automated countOrdered By: Dilia Cleary on 12-04-2024 Erythrocyte distribution width (RBC) [Ratio] 13.2 % Normal 11.9-15.[address] [facility] Comment on above: Performed By: #### C MP, ETOH, LIPASE, CBC #### [facility] [address] [place] [address] [place] Erythrocytes [#/volume] in B lood by Automated countOrdered By: Dilia Cleary on 12-04-2024 RBC (Bld) [#/Vol] 4.80 10*6/uL Normal 3.60-5.00 [facility] Comment on above: Performed By: #### C MP, ETOH, LIPASE, CBC #### [facility] [address] Ethanol [Mass/volume] in Ser um or PlasmaOrdered By: Dilia Cleary on 12-04-2024 Ethanol [Mass/Vol] Ethanol [Mass/volume ] in Serum or Plasma [facility] Comment on above: Test not performed Ethanol [Mass/Vol] mg/dL Normal [facility] Comment on above: Performed By: #### C MP, ETOH, LIPASE, CBC #### [facility] [address] Ethyl Alcohol Profileon 11-08 Percent Ethanol Not performed Normal [facility] Comment on above: Result Comment: PERF ORMED BY: [facility] [address] [place] [address] PATHOLOGIST AUTOMATIC SILK SCREEN PRINTER MALOU CALLE M.D. Performed By: #### C MP, ETOH, LIPASE, CBC #### [facility] [address] FIBRINOGENon 12-04-2024 FIBRINOGEN 268 mg/dL Normal 190-480 [facility] Comment on above: Performed By: #### F IBR #### [facility] [address] [place] [address] VIR Globulin Calc (S) [Mass/Vol] Ordered By: Dilia Cleary on 12-04-2024 Globulin (S) [Mass/Vol] Serum globulin measurement by calculation (mass/volume) [facility] Glucose [Mass/volume] in Ser um or PlasmaOrdered By: Dilia Cleary on 12-04-2024 Glucose [Mass/Vol] Glucose [Mass/volume ] in Serum or Plasma High 70-[address] [facility] Comment on above: ADA recommended refe rence rangeRandom Glucose Reference Range is dependent on time and content of last meal. Glucose of more than 200 mg/dL in a nonstressed, ambulatory subject supports the diagnosis of Diabetes Mellitus. Glucose [Mass/Vol] 192 mg/dL High 70-100 [facility] Comment on above: ADA recommended refe rence rangeRandom Glucose Reference Range is dependent on time and content of last meal. Glucose of more than 200 mg/dL in a nonstressed, ambulatory subject supports the diagnosis of Diabetes Mellitus. Result Comment: Anza Glucose Reference Range is dependent on time and content of last meal. Glucose of more than 200 mg/dL in a nonstressed, ambulatory subject supports the diagnosis of Diabetes Mellitus. ADA recommended reference range Performed By: #### C MP, ETOH, LIPASE, CBC ####[facility] [id number] HEMOGLOBIN AND HEMATOCRIT, B LOODon 12-04-2024 Hematocrit (Bld) [Volume fraction] 44.4 % Normal 35-47 [facility] Comment on above: Performed By: #### C BCA #### [facility] ([facility]) [address] [place] [address] VIR Hemoglobin (Bld) [Mass/Vol] 15.0 g/dL Normal 11.7-15.5 [facility] Comment on above: Performed By: #### C BCA #### [facility] ([facility]) [address] [place] [address] VIR Hematocrit Auto (Bld) [Volum e fraction]Ordered By: Dilia Cleary on 12-04-2024 Hematocrit (Bld) [Volume fraction] Hematocrit [Volume Fraction] of Blood by Automated count 34.0-46.[address] [facility] Hematocrit [Volume Fraction] of Blood by Automated countOrdered By: Dilia Cleary on 12-04-2024 Hematocrit (Bld) [Volume fraction] 42.7 % Normal 34.0-46.[address] [facility] Comment on above: Performed By: #### C MP, ETOH, LIPASE, CBC #### [facility] [address] Hemoglobin [Mass/volume] in BloodOrdered By: Dilia Cleary on 12-04-2024 Hemoglobin (Bld) [Mass/Vol] Hemoglobin [Mass/volume] in Blood 11.8-15.[address] [facility] Hemoglobin (Bld) [Mass/Vol] 14.4 g/dL Normal 11.8-15.[address] [facility] Comment on above: Performed By: #### C MP, ETOH, LIPASE, CBC #### [facility] [address] IONIZED CALCIUMon 12-04-2024 IONIZED CALCIUM - ICAN 4.9 mg/dL Normal 4.5-5.3 [facility] Comment on above: Performed By: #### I CA ####[facility] ([facility])[address], [place] [address] VIR LACTATE W/ REFLEXon 12-05-19 25 LACTATE W/REFLEX 1.3 mmol/L Normal 0.4-2.0 [facility] Comment on above: Order Comment: Resul t did not trigger repeat Lactate,re-order if needed. Performed By: #### C BCA #### [facility] ([facility]) [address] [place] [address] VIR LACTATE W/ REFLEX LACTS LACTATE W/ REFLEX Cancelled Normal [facility] LACTATE W/REFLEX 1.3 mmol/L Normal 0.4-2.0 [facility] Comment on above: Order Comment: Resul t did not trigger repeat Lactate,re-order if needed. Performed By: #### L ACTS ####[facility] ([facility])[address] [facility] [address], [place] [address] VIR LIPASEon 12-04-2024 Lipase [Catalytic activity/Vol] 145 U/L High 11-82 [facility] Comment on above: Performed By: #### L IPA #### [facility] ([facility]) [address] [place] [address] VIR LIVER PANELon 12-04-2024 ALP [Catalytic activity/Vol] 49 U/L Normal 39-130 [facility] Comment on above: Performed By: #### C BCA #### [facility] ([facility]) [address] [place] [address] VIR ALT [Catalytic activity/Vol] 166 U/L High <=31 [facility] Comment on above: Performed By: #### C BCA #### [facility] ([facility]) [address] [place] [address] VIR AST [Catalytic activity/Vol] 201 U/L High <=41 [facility] Comment on above: Performed By: #### C BCA #### [facility] ([facility]) [address] [place] [address] VIR Bilirubin.indirect [Mass/Vol] mg/dL Normal <=0.4 [facility] Comment on above: Result Comment: R-Sp ecimen markedly hemolyzed, results decreased Performed By: #### C BCA #### [facility] ([facility]) [address] [place] [address] VIR Protein [Mass/Vol] 6.9 g/dL Normal 6.0-8.0 [facility] Comment on above: Performed By: #### C BCA #### [facility] ([facility]) [address] [place] [address] VIR Leukocyte Reduced RBCon 11-08 Leukocyte Reduced RBC TRANSFUSED 12/04/24 0958 Normal [facility] Comment on above: Result Comment: PERF ORMED BY: [facility] [address] [place] [address] PATHOLOGIST AUTOMATIC [employer]K SCREEN PRINTER MALOU CALLE M.D. Leukocytes [#/volume] correc imani for nucleated erythrocytes in Blood by Automated counOrdered By: Dilia Cleary on 12-04-2024 WBC corrected for nucl RBC Auto (Bld) [#/Vol] Leukocytes [#/volume] corrected for nucleated erythrocytes in Blood by Automated coun High 3.8-11.[address] [facility] WBC corrected for nucl RBC Auto (Bld) [#/Vol] 12.9 10*3/uL High 3.8-11.[address] [facility] Leukocytes [#/volume] in Blo od by Automated countOrdered By: Dilia Cleary on 12-04-2024 WBC (Bld) [#/Vol] 12.9 10*3/uL High 3.8-11.6 [facility] Comment on above: Performed By: #### C MP, ETOH, LIPASE, CBC #### [facility] [address] Lipase [Enzymatic activity/v olume] in Serum or PlasmaOrdered By: Dilia Cleary on 12-04-2024 Lipase [Catalytic activity/Vol] Lipase [Enzymatic activity/volume] in Serum or Plasma High 11.0-82.[address] [facility] Lipase [Catalytic activity/Vol] 138.0 U/L High 11.0-82.[address] [facility] Comment on above: Result Comment: PERF ORMED BY: [place] [address] PATHOLOGIST AUTOMATIC SILK SCREEN PRINTER MALOU CALLE M.D. Performed By: #### C MP, ETOH, LIPASE, CBC ####[facility] [address] [place] [address] Lymphocytes Auto (Bld) [#/Vo l]Ordered By: Dilia Cleary on 12-04-2024 Lymphocytes (Bld) [#/Vol] Lymphocytes [#/volume] in Blood by Automated count 1.00-4.[address] [facility] Lymphocytes [#/volume] in Bl ood by Automated countOrdered By: Dilia Cleary on 12-04-2024 Lymphocytes (Bld) [#/Vol] 2.6 10*3/uL Normal 1.00-4.[address] [facility] Comment on above: Performed By: #### C MP, ETOH, LIPASE, CBC #### [facility] [address] [place] [address] [place] Lymphocytes/100 WBC Auto (Bl d)Ordered By: Dilia Cleary on 12-04-2024 Lymphocytes/100 WBC (Bld) Lymphocytes/100 leukocytes in Blood by Automated count . [facility] Lymphocytes/100 leukocytes i n Blood by Automated countOrdered By: Dilia Cleary on 12-04-2024 Lymphocytes/100 WBC (Bld) 20.2 % Normal . [facility] Comment on above: Performed By: #### C MP, ETOH, LIPASE, CBC #### [facility] [address] [place] [address] [place] MAGNESIUMon 12-04-2024 Magnesium [Mass/Vol] 1.7 mg/dL Low 1.8-2.6 [facility] Comment on above: Performed By: #### M G ####[facility] ([facility])[address], [place] [address] VIR MCH Auto (RBC) [Entitic mass ]Ordered By: Dilia Cleary on 12-04-2024 MCH (RBC) [Entitic mass] MCH [Entitic mass] by Automated count 24.7-34.[address] [facility] MCH [Entitic mass] by Automa imani countOrdered By: Dilia Cleary on 12-04-2024 MCH (RBC) [Entitic mass] 30.1 pg Normal 24.7-34.[address] [facility] Comment on above: Performed By: #### C MP, ETOH, LIPASE, CBC #### [facility] [address] [place] [id number] [facility] [[email or web address]] MCHC Auto (RBC) [Mass/Vol]Or dered By: Dilia Cleary on 12-04-2024 MCHC (RBC) [Mass/Vol] MCHC [Mass/volume] by Automated count 32.0-35.[address] [facility] MCHC (RBC) [Mass/Vol] 33.8 g/dL 32.0-35.[address] [facility] MCV Auto (RBC) [Entitic vol] Ordered By: Dilia Cleary on 12-04-2024 MCV (RBC) [Entitic vol] MCV [Entitic volume] by Automated count 80-[address] [facility] MCV [Entitic volume] by Auto mated countOrdered By: Dilia Cleary on 12-04-2024 MCV (RBC) [Entitic vol] 89.0 fL Normal 80-[address] [facility] Comment on above: Performed By: #### C MP, ETOH, LIPASE, CBC #### [facility] [address] [place] [id number] [place] Monocyte distribution width [Entitic volume] in Blood by AutomatedOrdered By: Dilia Cleary on 12-04-2024 Monocyte distribution width Auto (Bld) [Entitic vol] Monocyte distribution width [Entitic volume] in Blood by Automated 0.00-20.[address] [facility] Comment on above: For adults in ED, MD W > 20.0 may be associated with a higher risk of sepsis during the first 12 hrs of hospital admission Monocyte distribution width Auto (Bld) [Entitic vol] 19.80 % 0.00-20.[address] [facility] Comment on above: For adults in ED, MD W > 20.0 may be associated with a higher risk of sepsis during the first 12 hrs of hospital admission Monocytes Auto (Bld) [#/Vol] Ordered By: Dilia Cleary on 12-04-2024 Monocytes (Bld) [#/Vol] Automated blood monocyte count 0.0-0.[address] [facility] Monocytes [#/volume] in Bloo d by Automated countOrdered By: Diliababatunde Cleary on 12-04-2024 Monocytes (Bld) [#/Vol] 0.8 10*3/uL Normal 0.0-0.[address] [facility] Comment on above: Performed By: #### C MP, ETOH, LIPASE, CBC #### [address] Monocytes/100 WBC Auto (Bld) Ordered By: Dilia Cleary on 12-04-2024 Monocytes/100 WBC (Bld) Automated monocyte % . [facility] Monocytes/100 leukocytes in Blood by Automated countOrdered By: Diliababatunde Cleary on 12-04-2024 Monocytes/100 WBC (Bld) 6.4 % Normal . [facility] Comment on above: Performed By: #### C MP, ETOH, LIPASE, CBC #### [facility] [address] [place] [address] Neutrophils Auto (Bld) [#/Vo l]Ordered By: Dilia Cleary on 12-04-2024 Neutrophils (Bld) [#/Vol] Neutrophils [#/volume] in Blood by Automated count High 1.8-7.[address] [facility] Neutrophils [#/volume] in Bl ood by Automated countOrdered By: Dilia Cleary on 12-04-2024 Neutrophils (Bld) [#/Vol] 9.3 10*3/uL High 1.8-7.[address] [facility] Comment on above: Performed By: #### C MP, ETOH, LIPASE, CBC #### [facility] [address] [id number] [place] Neutrophils/100 WBC Auto (Bl d)Ordered By: Dilia Cleary on 12-04-2024 Neutrophils/100 WBC (Bld) Automated neutrophil % . [facility] Neutrophils/100 leukocytes i n Blood by Automated countOrdered By: Dilia Cleary on 12-04-2024 Neutrophils/100 WBC (Bld) 72.0 % Normal . [facility] Comment on above: Performed By: #### C MP, ETOH, LIPASE, CBC #### [facility] [address] [id number] [facility] [[email or web address]] No Panel InformationOrdered By: Dilia Cleary on 12-04-2024 Estimated GFR (CKD-EPI) > 60.0 mL/Min [facility] Creatinine Clearance (Chem 88.[address] [facility] Nucleated erythrocytes [Pres ence] in Blood by Automated countOrdered By: Dilia Cleary on 12-04-2024 Nucleated RBC Auto Ql (Bld) Nucleated erythrocytes [Presence] in Blood by Automated count 0-0.[address] [facility] Nucleated RBC Auto Ql (Bld) 0.1 /100{WBC} 0-0.[address] [facility] PHOSPHORUSon 12-04-2024 Phosphate [Mass/Vol] 4.0 mg/dL Normal 2.4-4.9 [facility] Comment on above: Performed By: #### P HOS ####[facility] ([facility])[address], [place] [address] VIR POCT ELECTROLYTES W/ BUN, CR EAT, GLUC, HEMATOCRITon 12-04-2024 Chloride [Moles/Vol] 105 mmol/L Normal 98-109 [facility] Comment on above: Performed By: #### I 8XCA #### [facility] ([facility]) [address] [place] [address] VIR CO2 [Moles/Vol] 24 mmol/L Normal 22-32 [facility] Comment on above: Performed By: #### I 8XCA #### [facility] ([facility]) [address] [place] [address] VIR Creatinine [Mass/Vol] 0.9 mg/dL Normal 0.4-1.0 [facility] Comment on above: Performed By: #### I 8XCA #### [facility] ([facility]) [address] [place] [address] VIR GFR/1.73 sq M.predicted among non-blacks MDRD (S/P/Bld) [Vol rate/Area] 90 mL/min/{1.73_m2} Normal >=60 [facility] Comment on above: Result Comment: Repo rted eGFR is based on the CKD-EPI 2020 equation that does not use a race coefficient. Performed By: #### I 8XCA #### [facility] ([facility]) [address] [place] [address] VIR Glucose [Mass/Vol] 142 mg/dL High 65-99 [facility] Comment on above: Performed By: #### I 8XCA #### [facility] ([facility]) [address] [place] [address] VIR Hematocrit (Bld) [Volume fraction] 47 % Normal 39-47 [facility] Comment on above: Performed By: #### I 8XCA #### [facility] ([facility]) [address] [place] [address] VIR Potassium [Moles/Vol] 4.2 mmol/L Normal 3.5-5.0 [facility] Comment on above: Performed By: #### I 8XCA #### [facility] ([facility]) [address] [place] [address] VIR Sodium [Moles/Vol] 140 mmol/L Normal 134-146 [facility] Comment on above: Performed By: #### I 8XCA #### [facility] ([facility]) [address] [place] [address] VIR Urea nitrogen [Mass/Vol] 19 mg/dL Normal 6-23 [facility] Comment on above: Performed By: #### I 8XCA #### [facility] ([facility]) [address] [place] [address] VIR PROTIME AND INRon 12-04-2024 INR 0.9 Normal 0.9-1.2 [facility] Comment on above: Performed By: #### C BCA #### [facility] ([facility]) [address] [place] [address] VIR PT Coag (PPP) [Time] 9.7 s Low 9.8-13.2 [facility] Comment on above: Performed By: #### C BCA #### [facility] ([facility]) [address] [place] [address] VIR INR 0.8 Low 0.9-1.2 [facility] Comment on above: Performed By: #### P INR #### [facility] ([facility]) [address] [place] [address] VIR PT Coag (PPP) [Time] 9.5 s Low 9.8-13.2 [facility] Comment on above: Performed By: #### P INR #### [facility] ([facility]) [address] [place] [address] VIR Platelet mean volume Auto (B ld) [Entitic vol]Ordered By: Dilia Cleary on 12-04-2024 Platelet mean volume (Bld) [Entitic vol] Platelet mean volume [Entitic volume] in Blood by Automated count 6.3-10.[address] [facility] Platelet mean volume [Entiti c volume] in Blood by Automated countOrdered By: Dilia Cleary on 12-04-2024 Platelet mean volume (Bld) [Entitic vol] 10.3 fL Normal 6.3-10.[address] [facility] Comment on above: Performed By: #### C MP, ETOH, LIPASE, CBC #### [address] Platelets Auto (Bld) [#/Vol] Ordered By: Dilia Cleary on 12-04-2024 Platelets (Bld) [#/Vol] Platelets [#/volume] in Blood by Automated count 150-[address] [facility] Platelets [#/volume] in Bloo d by Automated countOrdered By: Dilia Cleary on 12-04-2024 Platelets (Bld) [#/Vol] 281 10*3/uL Normal 150-[address] [facility] Comment on above: Performed By: #### C MP, ETOH, LIPASE, CBC #### [facility] [address] Potassium [Moles/volume] in Serum or PlasmaOrdered By: Dilia Cleary on 12-04-2024 Potassium [Moles/Vol] Potassium [Moles/volume] in Serum or Plasma Low 3.5-5.[address] [facility] Potassium [Moles/Vol] 3.4 mmol/L Low 3.5-5.[address] [facility] Comment on above: Performed By: #### C MP, ETOH, LIPASE, CBC ####[address] Protein [Mass/volume] in Ser um or PlasmaOrdered By: Dilia Cleary on 12-04-2024 Protein [Mass/Vol] Protein [Mass/volume ] in Serum or Plasma 6.4-8.[address] [facility] Protein [Mass/Vol] 6.7 g/dL Normal 6.4-8.9 [facility] Comment on above: Performed By: #### C MP, ETOH, LIPASE, CBC ####[address] RBC Auto (Bld) [#/Vol]Ordere d By: Dilia Cleary on 12-04-2024 RBC (Bld) [#/Vol] Erythrocytes [#/volume] in Blood by Automated count 3.60-5.[address] [facility] Serum globulin measurement b y calculation (mass/volume)Ordered By: Dilia Cleary on 12-04-2024 Globulin (S) [Mass/Vol] 2.6 g/dL Normal [facility] Comment on above: Performed By: #### C MP, ETOH, LIPASE, CBC ####[address] Serum or plasma albumin/glob ulin mass ratioOrdered By: Dilia Cleary on 12-04-2024 Albumin/Globulin [Mass ratio] Serum or plasma albumin/globulin mass ratio [facility] Albumin/Globulin [Mass ratio] 1.6 {ratio} Normal [facility] Comment on above: Performed By: #### C MP, ETOH, LIPASE, CBC ####[facility] [id number] Serum or plasma anion gap de terminationOrdered By: Dilia Cleary on 12-04-2024 Anion gap [Moles/Vol] Serum or plasma anion gap determination 6.0-15.[address] [facility] Anion gap [Moles/Vol] 8.9 mmol/L Normal 6.0-15.[address] [facility] Comment on above: Performed By: #### C MP, ETOH, LIPASE, CBC ####[facility] [id number] Serum or plasma ethanol marciano urement (mass/volume)Ordered By: Dilia Claery on 12-04-2024 Ethanol [Mass/Vol] TNP [facility] Comment on above: Test not performed Sodium [Moles/volume] in Ser um or PlasmaOrdered By: Dilia Cleary on 12-04-2024 Sodium [Moles/Vol] Sodium [Moles/volume ] in Serum or Plasma 136-[address] [facility] Sodium [Moles/Vol] 137 mmol/L Normal 136-145 [facility] Comment on above: Performed By: #### C MP, ETOH, LIPASE, CBC ####[facility] [id number] TROP I, HIGH SENSITIVITY 1 H OURon 12-04-2024 TROP I, HIGH SENSITIVITY 1 HOUR TNIHS1 TROP I, HIGH SENSITIVITY 1 HOUR Cancelled Normal [facility] TROPONIN I, HIGH SENSITIVITY 19 ng/L High <16 [facility] Comment on above: Order Comment: [place] tions of hs-Troponin may be due to causesother than myocardial ischemia.Recommend serial hs-Troponin testing be performed.For the initial evaluation and management of chestpain patients, refer to the algorithms linked below.Emergency Patient:[email or web address]:[email or web address] Performed By: #### T NIH ####[facility] ([facility])[address] [facility] [address], [place] [address] VIR TYPE AND SCREENon 12-04-2024 ABO_INTEP A Normal [facility] Comment on above: Performed By: #### T SC ####[facility] ([facility])[address] [facility] [place] [address] VIR Performed By: #### A MICA ####[facility] ([facility])[address] [facility] [place] [address] VIR RH_INTEP Positive Normal [facility] Comment on above: Performed By: #### T SC ####[facility] ([facility])[address] [facility] [place] [address] VIR Performed By: #### A MICA ####[facility] ([facility])[address] [place] [place] [address] VIR Type and Screenon 12-04-2024 ABO and Rh group Nom (Bld) Blood group A Rh(D) positive Normal [facility] URINALYSISon 12-04-2024 Bilirubin Ql (U) Negative Normal Negative [facility] Comment on above: Order Comment: Urine received without preservative. Delays in transport may affect results. Interpret with caution. A clinical correlation is recommended. Performed By: #### U A ####[facility] ([facility])[address], [place] [address] VIR BLOOD/HGB Moderate Abnormal Negative [facility] Comment on above: Order Comment: Urine received without preservative. Delays in transport may affect results. Interpret with caution. A clinical correlation is recommended. Performed By: #### U A ####[facility] ([facility])[address], [place] [address] VIR Color (U) Yellow Normal Yellow [facility] Comment on above: Order Comment: Urine received without preservative. Delays in transport may affect results. Interpret with caution. A clinical correlation is recommended. Performed By: #### U A ####[facility] ([facility])[address], [place] [address] VIR Glucose Ql (U) 150 mg/dL Abnormal Negative [facility] Comment on above: Order Comment: Urine received without preservative. Delays in transport may affect results. Interpret with caution. A clinical correlation is recommended. Performed By: #### U A ####[facility] ([facility])[address], [place] [address] VIR Ketones Ql (U) Negative Normal Negative [facility] Comment on above: Order Comment: Urine received without preservative. Delays in transport may affect results. Interpret with caution. A clinical correlation is recommended. Performed By: #### U A ####[facility] ([facility])[address], [place] [address] VIR Leukocyte esterase Test strip Ql (U) Negative Normal Negative [facility] Comment on above: Order Comment: Urine received without preservative. Delays in transport may affect results. Interpret with caution. A clinical correlation is recommended. Performed By: #### U A ####[facility] ([facility])[address], [place] [address] VIR MUCOUS Present Abnormal None [facility] Comment on above: Order Comment: Urine received without preservative. Delays in transport may affect results. Interpret with caution. A clinical correlation is recommended. Performed By: #### U A ####[facility] ([facility])[address], [place] [address] VIR Nitrite Ql (U) Negative Normal Negative [facility] Comment on above: Order Comment: Urine received without preservative. Delays in transport may affect results. Interpret with caution. A clinical correlation is recommended. Performed By: #### U A ####[facility] ([facility])[address] [address] VIR PH,URINE 5.5 Normal 5.0-8.5 [facility] Comment on above: Order Comment: Urine received without preservative. Delays in transport may affect results. Interpret with caution. A clinical correlation is recommended. Performed By: #### U A ####[facility] ([facility])[address] [address] VIR Protein Ql (U) 50 mg/dL Abnormal Negative [facility] Comment on above: Order Comment: Urine received without preservative. Delays in transport may affect results. Interpret with caution. A clinical correlation is recommended. Performed By: #### U A ####[facility] ([facility])[address] [address] VIR R.B.CELLS 6 High 0-5 [facility] Comment on above: Order Comment: Urine received without preservative. Delays in transport may affect results. Interpret with caution. A clinical correlation is recommended. Performed By: #### U A ####[facility] ([facility])[address] [address] VIR Specific gravity (U) [Rel density] 1.010 Normal 1.003-1.035 [facility] Comment on above: Order Comment: Urine received without preservative. Delays in transport may affect results. Interpret with caution. A clinical correlation is recommended. Performed By: #### U A ####[facility] ([facility])[address] [place] [address] VIR SQUAMOUS EPITHELIUM 1 Normal 0-5 [facility] Comment on above: Order Comment: Urine received without preservative. Delays in transport may affect results. Interpret with caution. A clinical correlation is recommended. Performed By: #### U A ####[facility] ([facility])[address] [address] VIR TURBIDITY Clear Normal Clear [facility] Comment on above: Order Comment: Urine received without preservative. Delays in transport may affect results. Interpret with caution. A clinical correlation is recommended. Performed By: #### U A ####[facility] ([facility])[address] [facility] [address], [place] [address] VIR UROBILINOGEN <1.1 eu/dL Normal <1.1 eu/dL [facility] Comment on above: Order Comment: Urine received without preservative. Delays in transport may affect results. Interpret with caution. A clinical correlation is recommended. Performed By: #### U A ####[facility] ([facility])[address] [address] VIR W.B.CELLS 0 Normal 0-5 [facility] Comment on above: Order Comment: Urine received without preservative. Delays in transport may affect results. Interpret with caution. A clinical correlation is recommended. Performed By: #### U A ####[facility] ([facility])[address] [address] VIR Urea nitrogen [Mass/volume] in Serum or PlasmaOrdered By: Dilia Cleary on 12-04-2024 Urea nitrogen [Mass/Vol] Urea nitrogen [Mass/volume] in Serum or Plasma 7- [facility] Urea nitrogen [Mass/Vol] 14 mg/dL Normal 7-[address] [facility] Comment on above: Performed By: #### C MP, ETOH, LIPASE, CBC ####[facility] [id number] [place] [address] [facility] [[email or web address]] WBC Auto (Bld) [#/Vol]Ordere d By: Dilia Cleary on 12-04-2024 WBC (Bld) [#/Vol] Leukocytes [#/volume ] in Blood by Automated count High 3.8-11.[address] [facility] XR CHEST 1 VWon 12-04-2024 XR [...] Fady Jaramillo MD on 12/04/2024 11:26 AM [facility] XR CHEST 2Von 11-29-2024 [place] [address] XRay Report Signed Patient: MISTY ELLIOTT MR#: [id number] : 1995 Acct:[id number] Age/Sex: 28 / F ADM Date: 11/29/24 Loc: [facility] Attending Dr: Timmy Smiley D.O. Ordering Physician: Timmy Smiley D.O. Date of Service: 11/29/24 Procedure(s): XR chest 2V Accession Number(s): [id number] cc: TEE BLANCAS ; Timmy Smiley D.O. [place] [address] Patient Name: MISTY ELLIOTT MRN: [id number] date: 1995 Sex: F Assigned Patient Location: [facility] Current Patient Location: [facility] Accession/Order Number: [id number] Exam Date: 11/29/2024 09:57 Report Date: 11/29/2024 [...] M.D.11/29/2024 9:58 AM Dictation Location: [place] [address] Electronically authenticated by: [id number] Y Date: 11/29/2024 09:58 Dictated By: Darshan Hoang D.O. Signed By: 11/29/24 1000 DD/ 7 TD/TT: Cyber [employer] Planner: [facility] Radiology, Radiologist, - 11/29/2024 [place] [address] XRay Report Signed Patient: MISTY ELLIOTT MR#: [id number] : 1995 Acct:[id number] Age/Sex: 28 / F ADM Date: 11/29/24 Loc: [facility] Attending Dr: Timmy Smiley D.O. Ordering Physician: Timmy Smiley D.O. Date of Service: 11/29/24 Procedure(s): XR chest 2V Accession Number(s): [id number] cc: TEE BLANCAS ; Timmy Smiley D.O. The [place] [address] Patient Name: MISTY ELLIOTT MRN: [facility]:[id number] date: 1995 Sex: F Assigned Patient Location: [facility] Current Patient Location: [facility] Accession/Order Number: [id number] Exam Date: 11/29/2024 09:57 Report Date: 11/29/2024 [...] M.D.11/29/2024 9:58 AM Dictation Location: [place] [address] Electronically authenticated by: [id number] Y Date: 11/29/2024 09:58 Dictated By: Darshan Hoang D.O. Signed By: 11/29/24 1000 DD/ 7 TD/TT: [employer] Planner: [facility] Radiology Study observation (narrative) [facility] XR CHEST 2VOrdered By: Radio logist Radiology on 11-29-2024 [place] Work Phone: CBC (H/H, RBC, INDICES, WBC, PLT)on 11-01-2024 Erythrocyte distribution width (RBC) [Ratio] 13.9 % Normal 11.0-15.0 [facility] Comment on above: Performed By: #### 1 7306, 81700, , , 1758, 466 #### [facility] [place] [address] Clock Repair Technician: Manuel Azar MD Hematocrit (Bld) [Volume fraction] 45.6 % High 35.0-45.0 [facility] Comment on above: Performed By: #### 1 7306, 49269, , , 1758, 466 #### [facility] [place] [address] Clock Repair Technician: Manuel Azar MD Hemoglobin (Bld) [Mass/Vol] 15.0 g/dL Normal 11.7-15.5 [facility] Comment on above: Performed By: #### 1 7306, 12517, , , 1758, 466 #### [facility] [place] [address] Clock Repair Technician: Manuel Azar MD MCH (RBC) [Entitic mass] 30.5 pg Normal 27.0-33.0 [facility] Comment on above: Performed By: #### 1 7306, 98078, , , 175, 466 #### [facility] [place] [address] Clock Repair Technician: Manuel Azar MD MCHC (RBC) [Mass/Vol] 32.9 [...] patient's clinical condition. Performed By: #### 1 7306, 98679, 41263, 927, 1759, 466 #### [facility] of [place] [address] Clock Repair Technician: Manuel Azar MD MCV (RBC) [Entitic vol] 92.9 fL Normal 80.0-100.0 [facility] Comment on above: Performed By: #### 1 7306, 57875, 21977, 927, 175, 466 #### [facility] of [address], [address] [place] [address] Clock Repair Technician: Manuel Azar MD Platelet mean volume (Bld) [Entitic vol] 12.5 fL Normal 7.5-12.5 [facility] Comment on above: Performed By: #### 1 7306, 44753, 07019, 927, 175, 466 #### [facility] of [place] [address] Clock Repair Technician: Manuel Azar MD Platelets (Bld) [#/Vol] 336 10*3/uL Normal 140-400 [facility] Comment on above: Performed By: #### 1 7306, 11912, 68040, 927, 175, 466 #### [facility] of [place] [address] Clock Repair Technician: Manuel Azar MD RBC (Bld) [#/Vol] 4.91 10*6/uL Normal 3.80-5.10 [facility] Comment on above: Performed By: #### 1 7306, 50216, 71636, 927, 1759, 466 #### [facility] of [place] [address] Clock Repair Technician: Manuel Azar MD WBC (Bld) [#/Vol] 10.9 10*3/uL High 3.8-10.8 [facility] Comment on above: Performed By: #### 1 7306, 41580, 58355, 927, 1759, 466 #### [facility] [place] [address] Clock Repair Technician: Manuel Azar MD COMPREHENSIVE METABOLIC PANE [facility] 11-01-2024 Albumin [Mass/Vol] 4.7 g/dL Normal 3.6-5.1 [facility] Comment on above: Performed By: #### 1 7306, 71875, 13643, 927, 175, 466 #### [facility] of [address], [address] [place] [address] Clock Repair Technician: Manuel Azar MD Albumin/Globulin [Mass ratio] 1.7 {ratio} Normal 1.0-2.5 [facility] Comment on above: Performed By: #### 1 7306, 30089, , 92, 175, 466 #### [facility] of [place] [address] Clock Repair Technician: Manuel Azar MD ALP [Catalytic activity/Vol] 53 U/L Normal 31-125 [facility] Comment on above: Performed By: #### 1 7306, 95904, , 927, 175, 466 #### [facility] of [address], [address] [place] [address] Clock Repair Technician: Manuel Azar MD ALT [Catalytic activity/Vol] 13 U/L Normal 6-29 [facility] Comment on above: Performed By: #### 1 7306, 74763, 76031, 927, 175, 466 #### [facility] of [address], [address] [place] [address] Clock Repair Technician: Manuel Azar MD AST [Catalytic activity/Vol] 20 U/L Normal 10-30 [facility] Comment on above: Performed By: #### 1 7306, 74410, 45732, 927, 175, 466 #### [facility] of [place] [address] Clock Repair Technician: Manuel Azar MD Bilirubin [Mass/Vol] 0.4 mg/dL Normal 0.2-1.2 [facility] Comment on above: Performed By: #### 1 7306, 03778, 80557, 92, 175, 466 #### [facility] [place] [address] Clock Repair Technician: Manuel Azar MD BUN/CREATININE RATIO SEE NOTE: Normal 6-22 [facility] Comment on above: Result Comment: Not Reported: BUN and Creatinine are within reference range. Performed By: #### 1 7306, 97910, , , 1758, 466 #### [facility] [place] [address] Clock Repair Technician: Manuel Azar MD Calcium [Mass/Vol] 10.0 mg/dL Normal 8.6-10.2 [facility] Comment on above: Performed By: #### 1 7306, 31424, , , 1758, 466 #### [facility] [place] [address] Clock Repair Technician: Manuel Azar MD Chloride [Moles/Vol] 104 mmol/L Normal 98-110 [facility] Comment on above: Performed By: #### 1 7306, 00134, , , 1758, 466 #### [facility] [place] [address] Clock Repair Technician: Manuel Azar MD CO2 [Moles/Vol] 24 mmol/L Normal 20-32 [facility] Comment on above: Performed By: #### 1 7306, 96423, , , 1758, 466 #### [facility] [place] [address] Clock Repair Technician: Manuel Azar MD Creatinine [Mass/Vol] 0.74 mg/dL Normal 0.50-0.96 [facility] Comment on above: Performed By: #### 1 7306, 75417, , , 1758, 466 #### [facility] [place] [address] Clock Repair Technician: Manuel Azar MD GFR/1.73 sq M.predicted among non-blacks MDRD (S/P/Bld) [Vol rate/Area] 114 mL/min/{1.73_m2} Normal > OR = 60 [facility] Comment on above: Performed By: #### 1 7306, 38091, , , 1758, 466 #### [facility] [place] [address] Clock Repair Technician: Manuel Azar MD Globulin (S) [Mass/Vol] 2.7 g/dL Normal 1.9-3.7 [facility] Comment on above: Performed By: #### 1 7306, 81590, , , 1758, 466 #### [facility] [place] [address] Clock Repair Technician: Manuel Azar MD Glucose [Mass/Vol] 82 mg/dL Normal 65-99 [facility] Comment on above: Result Comment: Fasting reference interval Performed By: #### 1 7306, 53629, , , 1758, 466 #### [facility] [place] [address] Clock Repair Technician: Manuel Azar MD Potassium [Moles/Vol] 4.8 mmol/L Normal 3.5-5.3 [facility] Comment on above: Performed By: #### 1 7306, 90221, , , 1758, 466 #### [facility] [place] [address] Clock Repair Technician: Manuel Azar MD Protein [Mass/Vol] 7.4 g/dL Normal 6.1-8.1 [facility] Comment on above: Performed By: #### 1 7306, 35022, , 92, 175, 466 #### [facility] [place] [address] Clock Repair Technician: Manuel Azar MD Sodium [Moles/Vol] 138 mmol/L Normal 135-146 [facility] Comment on above: Performed By: #### 1 7306, 17505, , 92, 175, 466 #### [facility] [address], [address] [place] [address] Clock Repair Technician: Manuel Azar MD Urea nitrogen [Mass/Vol] 15 mg/dL Normal 03-02 [facility] Comment on above: Performed By: #### 1 7306, 07853, 69580, 927, 1759, 466 #### [facility] [address], [address] [place] [address] Clock Repair Technician: Manuel Azar MD FOLATE, SERUMon 11-01-2024 Folate [Mass/Vol] 13.5 ng/mL Normal [facility] Comment on above: Result Comment: Refe rence Range Low: <3.4 Borderline: 3.4-5.4 Normal: >5.4 Performed By: #### 1 7306, 95293, 87167, 927, 175, 466 #### [facility] [address], [address] [place] [address] Clock Repair Technician: Manuel Azar MD TSH W/REFLEX TO FT4on 2024 TSH W/REFLEX TO FT4 1.04 mIU/L Normal [facility] Comment on above: Result Comment: Refe rence Range > or = 20 Years 0.40-4.50 Ranges First trimester 0.26-2.66 Second trimester 0.55-2.73 Third trimester 0.43-2.91 Performed By: #### 1 7306, 96469, 49150, 927, 1759, 466 #### [facility] [place] [address] Clock Repair Technician: Manuel Azar MD Urinalysis macro (dipstick) panel (U)on 11-01-2024 Bilirubin, UA Negative Negative - 4(70) +++ mg/dL [facility] Blood, UA Negative Negative - 50 Russel/mcL [facility] Clarity, UA Clear [facility] re Color, UA Yellow [facility] Glucose, UA Negative Negative - 2000(110) ++++ mg/dL [facility] Interpretation and review of laboratory results Normal [facility] Ketones, UA Negative Negative - 160(16) ++++ mg/dL [facility] Leukocytes, UA Negative Negative - 500+++ Alma/mcL [facility] Nitrite, UA Negative Negative - Positive [facility] pH, UA 5.5 5 - 9 [facility] e Protein, UA Negative Negative - 2000(20) ++++ mg/dL [facility] Spec Grav, UA 1.02 1 - 1.03 [facility] care Urobilinogen, UA 0.2 0.2 - 12 mg/dL [facility] VITAMIN B12on 11-01-2024 Cobalamin (Vitamin B12) [Mass/Vol] 672 pg/mL Normal 200-1100 [facility] Comment on above: Performed By: #### 1 7306, 51731, 82185, 927, 1759, 466 #### [facility] [address], [address] [place] [phone] Clock Repair Technician: Manuel Azar MD VITAMIN D,25-OH,TOTAL,IAon 0 11-01-2024 [...] D, (D2,D3), LC/MS/MS is recommended: order code 95623 (patients >2yrs). See Note 1 Note 1 For additional information, please refer to http://education.Adar IT/faq/LRG926 (This link is being provided for informational/ educational purposes only.) Performed By: #### 1 7306, 93670, 47340, 927, 1759, 466 #### [facility] [address], [address] [place] [phone] Clock Repair Technician: Manuel Azar MD IGP,APTIMA HPV,AGE GDLNon AGE GDLN ACOG TESTING Note . [facility] Comment on above: TESTS RESULT FLAG U NITS REF RANGE LAB Clinician Provided Cytology Information Source.............Vagina No. of containers..01 ThinPrep Vial Age Andry HORN Jamar... FLAG LEGEND: L-Low Normal,H-High Normal,LL-Alert Low,HH-Alert High <-Panic Low,>-Panic High,A-Abnormal,AA-Critical Abnormal Performed at: 01 [facility] [address] [facility] [address] Tamie Johnson MD, IGP, RFX APTIMA HPV ASCU Note . [facility] Comment on above: TESTS RESULT FLAG UN ITS REF RANGE LAB DIAGNOSIS: 02 NEGATIVE FOR INTRAEPITHELIAL LESION OR MALIGNANCY. Specimen adequacy: 02 Satisfactory for evaluation. Performed by: 02 [employer] Desktop Support Specialist ([facility]) . 02 Note: Note 02 [...] <-Panic Low,>-Panic High,A-Abnormal,AA-Critical Abnormal Performed at: [address] [phone] Tamie Johnson MD, Performed at: =G - [facility] [id number] Landscape Laborer: Tamie Johnson MD, Phone: [phone] Performed at: - [address] [id number] Landscape Laborer: Tamie Johnson MD, Phone: [phone] [facility] e XR ANKLE RT MIN 3 VWSon 03-10 XR ANKLE RT MIN 3 VWS XR ANKLE RT MIN 3 VWS HISTORY: Pain, injury COMPARISON: None FINDINGS: Multiple views right ankle were obtained. Mild soft tissue swelling over the lateral malleolus. Osseous structures are intact with normal alignment. IMPRESSION: * No acute osseous abnormality. Finalized by Arnol Vázquez MD on 04/06/2024 9:31 AM Normal [facility] Thrombin timeOrdered By: Kenneth Stout on 10-14-2023 Thrombin time Coag (PPP) [Time] See separate report. View in OnBase or in EPIC. [facility] Thrombin time Coag (PPP) [Ti me]Ordered By: Bennie Stout on 10-14-2023 [facility] CBC auto differentialon Basophils (Bld) [#/Vol] 0.1 10*3/uL [facility] Basophils/100 WBC (Bld) 1.2 % [facility] Eosinophils (Bld) [#/Vol] 0.1 10*3/uL [facility] Eosinophils/100 WBC (Bld) 0.8 % [facility] Erythrocyte distribution width (RBC) [Ratio] 13.7 % 11.5 - 15.0 % [facility] Hematocrit (Bld) [Volume fraction] 39.7 % 35 - 47 % [facility] Hemoglobin (Bld) [Mass/Vol] 13.3 g/dL 11.7 - 15.5 g/dL [facility] Lymphocytes (Bld) [#/Vol] 2.4 10*3/uL [facility] Lymphocytes/100 WBC (Bld) 36.2 % [facility] MCH (RBC) [Entitic mass] 29.2 pg 27 - 34 pg [facility] MCHC (RBC) [Mass/Vol] 33.6 g/dL 32 - 36 g/dL [facility] MCV (RBC) [Entitic vol] 87 fL 80 - 100 fL [facility] Monocytes (Bld) [#/Vol] 0.5 10*3/uL [facility] Monocytes/100 WBC (Bld) 7.3 % [facility] Neutrophils (Bld) [#/Vol] 3.7 10*3/uL [facility] Neutrophils/100 WBC (Bld) 54.5 % [facility] Platelet mean volume (Bld) [Entitic vol] 11.2 fL 7 - 12 fL [facility] Platelets (Bld) [#/Vol] 245 10*3/uL [facility] RBC (Bld) [#/Vol] 4.57 10*6/uL [facility] WBC corrected for nucl RBC Auto (Bld) [#/Vol] 6.7 [facility] Coagulation factor VIII acti vity actual/normal Coag (PPP) [Relative time]on 10-13-2023 Interpretation and review of laboratory results Abnormal [facility] Factor 8 activityon 10-13-19 24 Coagulation factor VIII activity actual/normal Coag (PPP) [Relative time] 154 % High [facility] Fibrinogenon 10-13-2023 Fibrinogen Coagulation.derived (PPP) [Mass/Vol] 262 mg/dL 190 - 480 mg/dL [facility] Fibrinogen Coagulation.deriv ed (PPP) [Mass/Vol]on 10-13-2023 [facility] Laboratory comment Osmany (Repo rt)on 10-13-2023 [facility] No Panel Informationon 10-12 [facility] Platelet function teston Platelet function (closure time) collagen+ADP induced (Bld) [Time] 102 [facility] Platelet function (closure time) collagen+EPINEPHrine induced (Bld) [Time] 163 [facility] Platelet function (closure time) Osmany (Bld) [Interp] Platelet function is normal. If patient [facility] Comment on above: history/physical exa mination gives strong indication of a bleeding disorder, consider testing for other etiologies. [facility] Unlisted Lab Test [id number] activity to [facility] 10-13-2023 Laboratory comment Osmany (Report) Sent to reference lab [facility] Unlisted Lab Test Type III c ollagen-vWF binding to [facility] 10-13-2023 Laboratory comment Osmany (Report) Sent to reference lab [facility] Unlisted Lab Test platelet e lectron microscopyon 10-13-2023 Laboratory comment Osmany (Report) Sent to reference lab [facility] Von Willebrand antigen facto r VIII agon 10-13-2023 vWf Ag IA Qn (PPP) 107 % 50 - 150 % [facility] Comment on above: It has been reported that patients with group A,B or AB have a much greater mean vWf: Ag than blood group O individuals. Data from a study of 1300 normal blood donors showed: ABO type Reference range O 35.6-157.0 A 48.0-233.9 B 56.8-241.0 AB 63.8-238.2 Reference: CECY Horton, et.al. The effect of ABO blood group on the diagnosis of vWd. Blood 69:1691, 1986 von Willebrand Factor Activi tyon 10-13-2023 vWf.activity actual/normal IA (PPP) [Relative ratio] 88 % 50 - 200 % [facility] Order Reconciliationon 12-24 Order Reconciliation [...] For: ex (more content not included)... Normal [facility] Patient Profile - Preop v3on 12-14-2022 Patient Profile - Preop v3 Patient Profile - Preop: Initial Info: Patient DemographicsName: MISTY ELLIOTT Date: 1995 Address: [address] [place] [address] Primary Phone [phone] How to be Addressedelena Spoken Language PreferredEnglish Source of Informationpatient Stated Reason for Admissionseptoplasty Primary Contact Name and Numberjerry Limitations on Visitors/Phone Callsnone Medications Brought to Hospitalno General Health: Weight in kg69.2 kilogram(s) Weight in pla262.5 pound(s) Weight Methodactual (measured) Scale Typestanding Height in feet5 feet Height Methodstated Patient or Family Member Reaction to Anesthesiano previous reaction Blood Avoidance/Restriction snone Previous Transfusion Reactionnot applicable Health Mgmt: Symptoms/Conditions Managed at Homecardiovascular; gastrointestinal Are You no Are You Currently Breastfeedingno Cardiovascular Symptoms/Conditionsir regular heartbeat diagnosed years ago current EKG to be faxed to the [facility] Gastrointestinal Symptoms/ConditionsIB S Barriers to Managing Healthnone Relationship/Environ: Lives Withdependent child(lamine) Living Arrangementshouse Resource/Environmenta l Concernsnone Anticipated Transition [place] [facility] Anticipated at Transitionnone Tobacco Use: Tobacco Useyes Tobacco Typecigarettes Last Tobacco [id number] Number of Packs per Day0.5 Number of yrs10 Pack yrs5 Pre-op Checklist: Arrival [id number] Arrival Time06:46 Procedure Typeseptoplasty NPOyes Last Food [id number] 22:30 Last Clear Fluid [id number] 22:30 ID Band On Patientpatient ID (name), [...] Past Surgical History, Active Electronic Signatures: star Russell (RN) (Signed 24-Dec-2022 06:58) Authored: Initial Info, General Health, Health Mgmt, Relationship/Environ, Tobacco Use, Pre-op Checklist, Additional Information Cristina Ron) (Signed 14-Dec-2022 13:59) Authored: Initial Info, Health Mgmt, Tobacco Use, Additional Information Last Updated: 24-Dec-2022 06:58 by star Russell (RN) Normal [facility] Tobacco Screening.on 023 Adult depression screening assessment No [facility]-Otolaryn golo gy-[place] Work Phone: Tobacco use status CPHS a) Yes MG-Otolaryngolo gy-[facility] Work Phone: Tobacco Screening. Yes MG-Albin laryngolo gy-David Work Phone: XR CSPINE 2_3 VIEWSon 2022 [...] Date: 2022-11-27 10:56 Normal [facility] CBC AUTO DIFFon 08-03-2022 BASO # 0.0 103/ul Normal 0.0-0.1 [facility] Comment on above: Performed By: #### C BC #### [facility] Laboratory [address] [place], [place] [address] Dr. Grace Phillips Basophils/100 WBC (Bld) 0.5 % Normal 0.2-2.0 [facility] Comment on above: Performed By: #### C BC #### [facility] [address] [place] [address] Dr. Grace Phillips EO # 0.1 103/ul Normal 0.0-0.7 [facility] Comment on above: Performed By: #### C BC #### [facility] [address] [place] [address] Dr. Grace Phillips Eosinophils/100 WBC (Bld) 0.7 % Critically low 0.9-7.0 [facility] Comment on above: Performed By: #### C BC #### [facility] [address] [place] [address] Dr. Grace Phillips Erythrocyte distribution width (RBC) [Ratio] 12.6 % Normal 11.0-15.0 [facility] Comment on above: Performed By: #### C BC #### [facility] [address] [place] [address] Dr. Grace Phillips Hematocrit (Bld) [Volume fraction] 35.2 % Critically low 36.0-48.0 [facility] Comment on above: Performed By: #### C BC #### [facility] [address] [place] [address] Dr. Grace Phillips Hemoglobin (Bld) [Mass/Vol] 11.9 g/dL Critically low 12.0-16.0 [facility] Comment on above: Performed By: #### C BC #### [facility] [address] [place] [address] Dr. Grace Phillips IG # 0.03 10e3/ul Normal 0.00-0.03 [facility] Comment on above: Performed By: #### C BC #### [facility] [address] [place] [address] Dr. Grace Phillips IG % 0.3 % Normal 0.0-0.5 [facility] Comment on above: Performed By: #### C BC #### [facility] [address] [place] [address] Dr. Grace Phillips LYMPH # 1.4 103/ul Normal 1.2-3.8 [facility] Comment on above: Performed By: #### C BC #### [facility] [address] [place] [address] Dr. Grace Phillips Lymphocytes/100 WBC (Bld) 16.4 % Critically low 20.5-60.0 [facility] Comment on above: Performed By: #### C BC #### [facility] [address] [place] [address] Dr. Grace Phillips MANUAL DIFF REQ NO Normal [facility] Comment on above: Performed By: #### C BC #### [facility] [address] [place] [address] Dr. Grace Phillips MCH (RBC) [Entitic mass] 29.0 pg Normal 26.7-34.0 [facility] Comment on above: Performed By: #### C BC #### [facility] [address] [place] [address] Dr. Grace Phillips MCHC (RBC) [Mass/Vol] 33.8 g/dL Normal 29.9-35.2 [facility] Comment on above: Performed By: #### C BC #### [facility] [address] [place] [address] Dr. Grace Phillips MCV (RBC) [Entitic vol] 85.6 fL Normal 81.0-99.0 [facility] Comment on above: Performed By: #### C BC #### [facility] [address] [place] [address] Dr. Grace Phillips MONO # 0.8 103/ul Normal 0.3-0.8 [facility] Comment on above: Performed By: #### C BC #### [facility] [address] [place] [address] Dr. Grace Phillips Monocytes/100 WBC (Bld) 9.0 % Normal 1.7-12.0 [facility] Comment on above: Performed By: #### C BC #### [facility] [address] [place] [address] Dr. Grace Phillips NEUT # 6.3 103/ul Normal 1.4-6.5 [facility] Comment on above: Performed By: #### C BC #### [facility] [address] [place] [address] Dr. Grace Phillips Neutrophils/100 WBC (Bld) 73.1 % Normal 43.0-75.0 [facility] Comment on above: Performed By: #### C BC #### [facility] [address] [place] [address] Dr. Grace Phillips Platelet mean volume (Bld) [Entitic vol] 11.3 fL Normal 9.5-13.5 [facility] Comment on above: Performed By: #### C BC #### [facility] [address] [place] [address] Dr. Grace Phillips PLT 305 103/ul Normal 150-450 [facility] Comment on above: Performed By: #### C BC #### [facility] [address] [place] [address] Dr. Grace Phillips RBC 4.11 106/ul Critically low 4.20-5.40 [facility] Comment on above: Performed By: #### C BC #### [facility] [address] [place] [address] Dr. Grace Phillips WBC 8.6 103/ul Normal 4.0-11.0 [facility] Comment on above: Performed By: #### C BC #### [facility] [address] [place] [address] Dr. Grace Phillips PROF 14(COMP METB)on 022 Albumin [Mass/Vol] 3.0 g/dL Critically low 3.4-5.0 [facility] Comment on above: Performed By: #### C BC #### [facility] [address] [place] [address] Dr. Grace Phillips Albumin/Globulin [Mass ratio] 0.7 {ratio} Normal [facility] Comment on above: Performed By: #### C BC #### [facility] [address] [place] [address] Dr. Grace Phillips ALP [Catalytic activity/Vol] 166 U/L Critically high 46-116 [facility] Comment on above: Performed By: #### C BC #### [facility] [address] [place] [address] Dr. Grace Phillips ALT [Catalytic activity/Vol] 76 U/L Critically high 14-59 [facility] Comment on above: Performed By: #### C BC #### [facility] [address] [place] [address] Dr. Grace Phillips Anion gap [Moles/Vol] 10.8 mmol/L Normal [facility] Comment on above: Performed By: #### C BC #### [facility] [address] [place] [address] [address] Grace Phillips AST [Catalytic activity/Vol] 20 U/L Normal 15-37 [facility] Comment on above: Performed By: #### C BC #### [facility] [address] [place] [address] [address] Grace Phillips Bilirubin [Mass/Vol] 0.4 mg/dL Normal 0.2-1.0 [facility] Comment on above: Performed By: #### C BC #### [facility] [address] [place] [address] Dr. Grace Phillips Calcium [Mass/Vol] 9.1 mg/dL Normal 8.5-10.1 [facility] Comment on above: Performed By: #### C BC #### [facility] [address] [place] [address] Dr. Graec Phillips Chloride [Moles/Vol] 103 mmol/L Normal 98-107 [facility] Comment on above: Performed By: #### C BC #### [facility] [address] [place] [address] [address] Grace Phillips CO2 [Moles/Vol] 26.9 mmol/L Normal 21.0-32.0 [facility] Comment on above: Performed By: #### C BC #### [facility] [address] [place] [address] [address] Grace Phillips Creatinine [Mass/Vol] 0.53 mg/dL Critically low 0.55-1.02 [facility] Comment on above: Performed By: #### C BC #### [facility] [address] [place] [address] [address] Grace Phillips EGFR-AF AZERBAIJANI >60 Normal >=60 [facility] Comment on above: Performed By: #### C BC #### [facility] [address] [place] [address] [address] Grace Phillips EGFR-NON AF AZERBAIJANI >60 Normal >=60 [facility] Comment on above: Performed By: #### C BC #### [facility] [address] [place] [address] [address] Grace Phillips Globulin (S) [Mass/Vol] 4.2 g/dL Normal [facility] Comment on above: Performed By: #### C BC #### [facility] [address] [place] [address] [address] Grace Phillips Glucose [Mass/Vol] 89 mg/dL Normal 74-106 [facility] Comment on above: Performed By: #### C BC #### [facility] [address] [place] [address] [address] Grace Phillips Potassium [Moles/Vol] 3.7 mmol/L Normal 3.5-5.1 [facility] Comment on above: Performed By: #### C BC #### [facility] [address] [place] [address] [address] Grace Phillips Protein [Mass/Vol] 7.2 g/dL Normal 6.4-8.2 [facility] Comment on above: Performed By: #### C BC #### [facility] [address] [place] [address] [address] Grace Phillips Sodium [Moles/Vol] 137 mmol/L Normal 136-145 [facility] Comment on above: Performed By: #### C BC #### [facility] [address] [place] [address] [address] Grace Phillips Urea nitrogen [Mass/Vol] 5.0 mg/dL Critically low 7.0-18.0 [facility] Comment on above: Performed By: #### C BC #### [facility] [facility] [address] [address] [address] Grace Phillips Urea nitrogen/Creatinine [Mass ratio] 9.4 mg/mg Normal [facility] Comment on above: Performed By: #### C BC #### [facility] [address] [address] [address] Grace Phillips XR ABD FLAT UP_PA [...] Date: 2022-08-03 15:34 Normal The [facility] AMYLASEon 08-01-2022 Amylase [Catalytic activity/Vol] 31 U/L Normal 25-115 [facility] Comment on above: Performed By: #### C BC #### [facility] [address] [place] [address] Dr. Grace Phillips CBC AUTO DIFFon 08-01-2022 BASO # 0.0 103/ul Normal 0.0-0.1 [facility] Comment on above: Performed By: #### C BC #### [facility] [address] [address] [address] Grace Phillips Basophils/100 WBC (Bld) 0.4 % Normal 0.2-2.0 [facility] Comment on above: Performed By: #### C BC #### [facility] [address] [place] [address] Dr. Grace Phillips EO # 0.0 103/ul Normal 0.0-0.7 [facility] Comment on above: Performed By: #### C BC #### [facility] [address] [place] [address] Dr. Grace Phillips Eosinophils/100 WBC (Bld) 0.3 % Critically low 0.9-7.0 [facility] Comment on above: Performed By: #### C BC #### [facility] [address] [place] [address] Dr. Grace Phillips Erythrocyte distribution width (RBC) [Ratio] 12.8 % Normal 11.0-15.0 [facility] Comment on above: Performed By: #### C BC #### [facility] [address] [place] [address] Dr. Grace Phillips Hematocrit (Bld) [Volume fraction] 36.9 % Normal 36.0-48.0 [facility] Comment on above: Performed By: #### C BC #### [facility] [address] [place] [address] Dr. Grace Phillips Hemoglobin (Bld) [Mass/Vol] 12.3 g/dL Normal 12.0-16.0 [facility] Comment on above: Performed By: #### C BC #### [facility] [address] [place] [address] Dr. Grace Phillips IG # 0.03 10e3/ul Normal 0.00-0.03 [facility] Comment on above: Performed By: #### C BC #### [facility] [address] [place] [address] Dr. Grace Phillips IG % 0.3 % Normal 0.0-0.5 [facility] Comment on above: Performed By: #### C BC #### [facility] [address] [place] [address] Dr. Grace Phillips LYMPH # 1.2 103/ul Normal 1.2-3.8 [facility] Comment on above: Performed By: #### C BC #### [facility] [address] [place] [address] Dr. Grace Phillips Lymphocytes/100 WBC (Bld) 10.8 % Critically low 20.5-60.0 [facility] Comment on above: Performed By: #### C BC #### [facility] [address] [place] [address] Dr. Grace Phillips MANUAL DIFF REQ NO Normal [facility] Comment on above: Performed By: #### C BC #### [facility] [address] [place] [address] Dr. Grace Phillips MCH (RBC) [Entitic mass] 28.3 pg Normal 26.7-34.0 [facility] Comment on above: Performed By: #### C BC #### [facility] [address] [address] [address] Grace Phillips MCHC (RBC) [Mass/Vol] 33.3 g/dL Normal 29.9-35.2 [facility] Comment on above: Performed By: #### C BC #### [facility] [address] [address] [address] Grace Phillips MCV (RBC) [Entitic vol] 85.0 fL Normal 81.0-99.0 [facility] Comment on above: Performed By: #### C BC #### [facility] [address] [address] [address] Grace Phillips MONO # 0.7 103/ul Normal 0.3-0.8 [facility] Comment on above: Performed By: #### C BC #### [facility] [address] [place] [address] Dr. Grace Phillips Monocytes/100 WBC (Bld) 5.7 % Normal 1.7-12.0 [facility] Comment on above: Performed By: #### C BC #### [facility] [address] [address] [address] Grace Phillips NEUT # 9.4 103/ul Critically high 1.4-6.5 [facility] Comment on above: Performed By: #### C BC #### [facility] [address] [place] [address] Dr. Grace Phillips Neutrophils/100 WBC (Bld) 82.5 % Critically high 43.0-75.0 [facility] Comment on above: Performed By: #### C BC #### [facility] [address] [address] [address] Grace Phillips Platelet mean volume (Bld) [Entitic vol] 11.6 fL Normal 9.5-13.5 [facility] Comment on above: Performed By: #### C BC #### [facility] [address] [address] [address] Grace Phillips PLT 270 103/ul Normal 150-450 [facility] Comment on above: Performed By: #### C BC #### [facility] [address] [place], [place] [address] Dr. Grace Phillips RBC 4.34 106/ul Normal 4.20-5.40 [facility] Comment on above: Performed By: #### C BC #### [facility] [address] [place], [place] [address] Dr. Grace Phillips WBC 11.3 103/ul Critically high 4.0-11.0 [facility] Comment on above: Performed By: #### C BC #### [facility] [address] [place], [place] [address] ABD/PELV W CONon [...] Date: 2022-08-01 15:24 Normal The [facility] ER URINE PROFILEon 2 Bilirubin Ql (U) Negative Normal NEGATIVE The [facility] Comment on above: Performed By: #### U MICRO, ERUR #### [facility] [address] [place] [address] Dr. Grace Phillips Clarity (U) CLEAR Normal CLEAR [facility] Comment on above: Performed By: #### U MICRO, ERUR #### [facility] [address] [place] [address] Dr. Grace Phillips Color (U) YELLOW Normal YELLOW The [facility] Comment on above: Performed By: #### U MICRO, ERUR #### [facility] [address] [place] [address] Dr. Grace PAUL A micrscopic examination will be performed if indicated. Normal [facility] Comment on above: Performed By: #### U MICRO, ERUR #### [facility] [address] [address] [address] Grace Phillips Glucose Ql (U) Negative Normal NEGATIVE The [facility] Comment on above: Performed By: #### U MICRO, ERUR #### [facility] [address] [address] [address] Grace Phillips Hemoglobin Ql (U) LARGE Abnormal NEGATIVE The [facility] Comment on above: Performed By: #### U MICRO, ERUR #### [facility] [address] [place] [address] Dr. Grace Phillips Ketones Ql (U) Negative Normal NEGATIVE The [facility] Comment on above: Performed By: #### U MICRO, ERUR #### [facility] [address] [place] [address] Dr. Grace Phillips LEUKOCYTES Negative Normal NEGATIVE [facility] Comment on above: Performed By: #### U MICRO, ERUR #### [facility] [address] [place] [address] Dr. Grace Phillips Nitrite Ql (U) Negative Normal NEGATIVE [facility] Comment on above: Performed By: #### U MICRO, ERUR #### [facility] [address] [place] [address] Dr. Grace Phillips pH (U) 5.5 [pH] Normal 5-9 [facility] Comment on above: Performed By: #### U MICRO, ERUR #### [facility] [address] [place] [address] Dr. Grace Phillips SPEC GRAVITY 1.010 Normal 1.005-<=1.025 [facility] Comment on above: Performed By: #### U MICRO, ERUR #### [facility] [address] [place] [address] Dr. Grace Phillips UA PROTEIN Negative Normal NEGATIVE/ TRACE The [facility] Comment on above: Performed By: #### U MICRO, ERUR #### [facility] [address] [place] [address] Dr. Grace Phillips UR MICRO IND INDICATED Normal [facility] Comment on above: Performed By: #### U MICRO, ERUR #### [facility] [address] [place] [address] Dr. Grace Phillips Urobilinogen Qn (U) 1.0 {George'U}/dL Normal 0.2 - 1. 0 [facility] Comment on above: Performed By: #### U MICRO, ERUR #### [facility] [address] [place] [address] Dr. Grace Phillips LIPASEon 08-01-2022 Lipase [Catalytic activity/Vol] 68.0 U/L Critically low 73.0-393.0 [facility] Comment on above: Performed By: #### C BC #### [facility] [address] [place] [address] Dr. Grace Phillips PROF 14(COMP METB)on 022 Albumin [Mass/Vol] 3.4 g/dL Normal 3.4-5.0 [facility] Comment on above: Performed By: #### C BC #### [facility] [address] [place] [address] Dr. Grace Phillips Albumin/Globulin [Mass ratio] 0.8 {ratio} Normal [facility] Comment on above: Performed By: #### C BC #### [facility] [address] [place] [address] Dr. Grace Phillips ALP [Catalytic activity/Vol] 203 U/L Critically high 46-116 [facility] Comment on above: Performed By: #### C BC #### [facility] [address] [place] [address] Dr. Grace Phillips ALT [Catalytic activity/Vol] 156 U/L Critically high 14-59 [facility] Comment on above: Performed By: #### C BC #### [facility] [address] [place] [address] Dr. Grace Phillips Anion gap [Moles/Vol] 13.9 mmol/L Normal [facility] Comment on above: Performed By: #### C BC #### [facility] [address] [place] [address] Dr. Grace Phillips AST [Catalytic activity/Vol] 96 U/L Critically high 15-37 [facility] Comment on above: Performed By: #### C BC #### [facility] [address] [place] [address] Dr. Grace Phillips Bilirubin [Mass/Vol] 0.7 mg/dL Normal 0.2-1.0 [facility] Comment on above: Performed By: #### C BC #### [facility] [address] [place] [address] Dr. Grace Phillips Calcium [Mass/Vol] 9.1 mg/dL Normal 8.5-10.1 [facility] Comment on above: Performed By: #### C BC #### [facility] [address] [place] [address] Dr. Grace Phillips Chloride [Moles/Vol] 98 mmol/L Normal 98-107 [facility] Comment on above: Performed By: #### C BC #### [facility] [address] [address] [address] Grace Phillips CO2 [Moles/Vol] 27.3 mmol/L Normal 21.0-32.0 [facility] Comment on above: Performed By: #### C BC #### [facility] [address] [address] [address] Grace Phillips Creatinine [Mass/Vol] 0.53 mg/dL Critically low 0.55-1.02 [facility] Comment on above: Performed By: #### C BC #### [facility] [address] [place] [address] Dr. Grace Phillips EGFR-AF AZERBAIJANI >60 Normal >=60 [facility] Comment on above: Performed By: #### C BC #### [facility] [address] [address] [address] Grace Phillips EGFR-NON AF AZERBAIJANI >60 Normal >=60 [facility] Comment on above: Performed By: #### C BC #### [facility] [address] [place] [address] Dr. Grace Phillips Globulin (S) [Mass/Vol] 4.3 g/dL Normal [facility] Comment on above: Performed By: #### C BC #### [facility] [address] [place] [address] Dr. Grace Phillips Glucose [Mass/Vol] 109 mg/dL Critically high 74-106 [facility] Comment on above: Performed By: #### C BC #### [facility] [address] [address] [address] Grace Phillips Potassium [Moles/Vol] 3.2 mmol/L Critically low 3.5-5.1 [facility] Comment on above: Performed By: #### C BC #### [facility] [address] [address] [address] Grace Phillips Protein [Mass/Vol] 7.7 g/dL Normal 6.4-8.2 [facility] Comment on above: Performed By: #### C BC #### [facility] [address] [address] [address] Grace Phillips Sodium [Moles/Vol] 136 mmol/L Normal 136-145 [facility] Comment on above: Performed By: #### C BC #### [facility] [address] [address] [address] Grace Phillips Urea nitrogen [Mass/Vol] 7.0 mg/dL Normal 7.0-18.0 [facility] Comment on above: Performed By: #### C BC #### [facility] [address] [place] [address] Dr. Grace Phillips Urea nitrogen/Creatinine [Mass ratio] 13.2 mg/mg Normal [facility] Comment on above: Performed By: #### C BC #### [facility] [address] [place] [address] Dr. Grace Phillips URINE MICROSCOPIC ONLYon BACTERIA TRACE Abnormal NONE SEEN [facility] Comment on above: Performed By: #### U MICRO, ERUR #### [facility] [address] [place] [address] Dr. Grace Phillips Bacteria identified Cx Nom (U) NOT INDICATED Normal [facility] Comment on above: Performed By: #### U MICRO, ERUR #### [facility] [address] [place] [address] Dr. Grace Phillips CAST NONE SEEN Normal NONE SEEN [facility] Comment on above: Performed By: #### U MICRO, ERUR #### [facility] [address] [place] [address] Dr. Grace Phillips Crystals LM Nom (Urine sed) NONE SEEN Normal NONE SEEN [facility] Comment on above: Performed By: #### U MICRO, ERUR #### [facility] [address] [place] [address] Dr. Grace Phillips Epithelial cells LM Ql (Urine sed) MODERATE Abnormal NONE SEEN /RARE [facility] Comment on above: Performed By: #### U MICRO, ERUR #### [facility] [address] [place] [address] Dr. Grace Phillips MUCOUS MODERATE Abnormal NONE SEEN The [facility] Comment on above: Performed By: #### U MICRO, ERUR #### [facility] [address] [place] [address] Dr. Grace Phillips RBC 2-5 Abnormal 0-2 [facility] Comment on above: Performed By: #### U MICRO, ERUR #### [facility] [address] [place] [address] Dr. Grace Phillips WBC 0-2 Abnormal NONE SEEN The [facility] Comment on above: Performed By: #### U MICRO, ERUR #### [facility] [address] [place] [address] Dr. Grace Phillips CBC AUTO DIFFon 07-27-2022 BASO # 0.1 103/ul Normal 0.0-0.1 [facility] Comment on above: Performed By: #### C BC #### [facility] [address] [place] [address] Dr. Grace Phillips Basophils/100 WBC (Bld) 1.1 % Normal 0.2-2.0 [facility] Comment on above: Performed By: #### C BC #### [facility] [address] [place] [address] Dr. Grace Phillips EO # 0.1 103/ul Normal 0.0-0.7 [facility] Comment on above: Performed By: #### C BC #### [facility] [address] [place] [address] Dr. Grace Phillips Eosinophils/100 WBC (Bld) 0.7 % Critically low 0.9-7.0 [facility] Comment on above: Performed By: #### C BC #### [facility] [address] [place] [address] Dr. Grace Phillips Erythrocyte distribution width (RBC) [Ratio] 13.0 % Normal 11.0-15.0 [facility] Comment on above: Performed By: #### C BC #### [facility] [address] [place] [address] Dr. Grace Phillips Hematocrit (Bld) [Volume fraction] 43.0 % Normal 36.0-48.0 [facility] Comment on above: Performed By: #### C BC #### [facility] [address] [place] [address] Dr. Grace Phillips Hemoglobin (Bld) [Mass/Vol] 14.4 g/dL Normal 12.0-16.0 [facility] Comment on above: Performed By: #### C BC #### [facility] [address] [place] [address] Dr. Garce Phillips IG # 0.01 10e3/ul Normal 0.00-0.03 [facility] Comment on above: Performed By: #### C BC #### [facility] [address] [place] [address] Dr. Grace Phillips IG % 0.1 % Normal 0.0-0.5 [facility] Comment on above: Performed By: #### C BC #### [facility] [address] [place] [address] Dr. Grace Phillips LYMPH # 2.8 103/ul Normal 1.2-3.8 [facility] Comment on above: Performed By: #### C BC #### [facility] [address] [place] [address] Dr. Grace Phillips Lymphocytes/100 WBC (Bld) 37.5 % Normal 20.5-60.0 [facility] Comment on above: Performed By: #### C BC #### [facility] [address] [place] [address] Dr. Grace Phillips MANUAL DIFF REQ NO Normal [facility] Comment on above: Performed By: #### C BC #### [facility] [address] [place] [address] Dr. Grace Phillips MCH (RBC) [Entitic mass] 29.0 pg Normal 26.7-34.0 [facility] Comment on above: Performed By: #### C BC #### [facility] [address] [place] [address] Dr. Grace Phillips MCHC (RBC) [Mass/Vol] 33.5 g/dL Normal 29.9-35.2 [facility] Comment on above: Performed By: #### C BC #### [facility] [address] [address] [address] Grace Phillips MCV (RBC) [Entitic vol] 86.5 fL Normal 81.0-99.0 [facility] Comment on above: Performed By: #### C BC #### [facility] [address] [address] [address] Grace Phillips MONO # 0.6 103/ul Normal 0.3-0.8 [facility] Comment on above: Performed By: #### C BC #### [facility] [address] [place] [address] Dr. Grace Phillips Monocytes/100 WBC (Bld) 8.0 % Normal 1.7-12.0 [facility] Comment on above: Performed By: #### C BC #### [facility] [address] [place] [address] Dr. Grace Phillips NEUT # 4.0 103/ul Normal 1.4-6.5 [facility] Comment on above: Performed By: #### C BC #### [facility] [address] [place] [address] Dr. Grace Phillips Neutrophils/100 WBC (Bld) 52.6 % Normal 43.0-75.0 [facility] Comment on above: Performed By: #### C BC #### [facility] [address] [place] [address] Dr. Grace Phillips Platelet mean volume (Bld) [Entitic vol] 11.8 fL Normal 9.5-13.5 [facility] Comment on above: Performed By: #### C BC #### [facility] [address] [place] [address] Dr. Grace Phillips PLT 271 103/ul Normal 150-450 [facility] Comment on above: Performed By: #### C BC #### [facility] [address] [place] [address] Dr. Grace Phillips RBC 4.97 106/ul Normal 4.20-5.40 [facility] Comment on above: Performed By: #### C BC #### [facility] [address] [place] [address] Dr. Grace Phillips WBC 7.5 103/ul Normal 4.0-11.0 [facility] [facility] Comment on above: Performed By: #### C BC #### [facility] [address] [place] [address] Dr. Grace Phillips PREG HCG QUALon 07-27-2022 , QUAL Negative Normal NEGATIVE [facility] Comment on above: Performed By: #### U MICRO, ERUR #### [facility] [address] [place] [address] Dr. Grace Phillips Covid-19 PCR ([facility] 07[facility]09 SARS-CoV-2 (COVID-19) RNA ERLIN+probe Ql (Unsp spec) Not detected Normal NOT DETECTED The [facility] Comment on above: Result Comment: This test is not yet approved or cleared by the [place] FDA. When there are no FDA-approved or cleared tests available, and other criteria are met, FDA can make tests available under an emergency access mechanism called an Emergency Use Authorization (EUA). The EUA for this test is supported by the [place] of Health and Human Service's (HHS's) declaration [...] By: #### C BC #### [facility] [address] [place] [address] Dr. Grace Phillips TYPE AND SCREENon 07-23-2022 TYPE AND SCREEN Negative Normal [facility] Comment on above: Performed By: #### U MICRO, ERUR #### [facility] [address] [place] [address] Dr. Grace Phillips CBC AUTO DIFFon 05-21-2022 BASO # 0.1 103/ul Normal 0.0-0.1 [facility] Comment on above: Performed By: #### C BC #### [facility] [address] [place] [address] Dr. Grace Phillips Basophils/100 WBC (Bld) 1.1 % Normal 0.2-2.0 [facility] Comment on above: Performed By: #### C BC #### [facility] [address] [place] [address] Dr. Grace Phillips EO # 0.0 103/ul Normal 0.0-0.7 [facility] Comment on above: Performed By: #### C BC #### [facility] [address] [place] [address] Dr. Grace Phillips Eosinophils/100 WBC (Bld) 0.5 % Critically low 0.9-7.0 [facility] Comment on above: Performed By: #### C BC #### [facility] [address] [place] [address] Dr. Grace Phillips Erythrocyte distribution width (RBC) [Ratio] 13.2 % Normal 11.0-15.0 [facility] Comment on above: Performed By: #### C BC #### [facility] [address] [place] [address] Dr. Grace Phillips Hematocrit (Bld) [Volume fraction] 40.7 % Normal 36.0-48.0 [facility] Comment on above: Performed By: #### C BC #### [facility] [address] [place] [address] Dr. Grace Phillips Hemoglobin (Bld) [Mass/Vol] 13.2 g/dL Normal 12.0-16.0 [facility] Comment on above: Performed By: #### C BC #### [facility] [address] [place] [address] Dr. Grace Phillips IG # 0.02 10e3/ul Normal 0.00-0.03 [facility] Comment on above: Performed By: #### C BC #### [facility] [address] [place] [address] Dr. Grace Phillips IG % 0.2 % Normal 0.0-0.5 [facility] Comment on above: Performed By: #### C BC #### [facility] [address] [place] [address] Dr. Grace Phillips LYMPH # 2.7 103/ul Normal 1.2-3.8 [facility] Comment on above: Performed By: #### C BC #### [facility] [address] [place] [address] Dr. Grace Phillips Lymphocytes/100 WBC (Bld) 32.4 % Normal 20.5-60.0 [facility] Comment on above: Performed By: #### C BC #### [facility] [address] [place] [address] Dr. Grace Phillips MANUAL DIFF REQ NO Normal [facility] Comment on above: Performed By: #### C BC #### [facility] [address] [place] [address] Dr. Grace Phillips MCH (RBC) [Entitic mass] 29.1 pg Normal 26.7-34.0 [facility] Comment on above: Performed By: #### C BC #### [facility] [address] [place] [address] Dr. Grace Phillips MCHC (RBC) [Mass/Vol] 32.4 g/dL Normal 29.9-35.2 [facility] Comment on above: Performed By: #### C BC #### [facility] [address] [place] [address] Dr. Grace Phillips MCV (RBC) [Entitic vol] 89.6 fL Normal 81.0-99.0 [facility] Comment on above: Performed By: #### C BC #### [facility] [address] [place] [address] Dr. Grace Phillips MONO # 0.6 103/ul Normal 0.3-0.8 [facility] Comment on above: Performed By: #### C BC #### [facility] [address] [place] [address] Dr. Grace Phillips Monocytes/100 WBC (Bld) 7.3 % Normal 1.7-12.0 [facility] Comment on above: Performed By: #### C BC #### [facility] [address] [place] [address] Dr. Grace Phillips NEUT # 4.9 103/ul Normal 1.4-6.5 [facility] Comment on above: Performed By: #### C BC #### [facility] [address] [place] [address] Dr. Grace Phillips Neutrophils/100 WBC (Bld) 58.5 % Normal 43.0-75.0 [facility] Comment on above: Performed By: #### C BC #### [facility] [address] [place] [address] Dr. Grace Phillips Platelet mean volume (Bld) [Entitic vol] 11.6 fL Normal 9.5-13.5 [facility] Comment on above: Performed By: #### C BC #### [facility] [address] [place] [address] Dr. Grace Phillips PLT 284 103/ul Normal 150-450 [facility] Comment on above: Performed By: #### C BC #### [facility] [address] [place] [address] Dr. Grace Phillips RBC 4.54 106/ul Normal 4.20-5.40 [facility] Comment on above: Performed By: #### C BC #### [facility] [address] [place] [address] Dr. Grace Phillips WBC 8.3 103/ul Normal 4.0-11.0 [facility] Comment on above: Performed By: #### C BC #### [facility] [address] [place] [address] Dr. Grace Phillips URon 05-21-2022 , QUAL Negative Normal NEGATIVE [facility] Comment on above: Performed By: #### C BC #### [facility] [address] [place] [address] Dr. Grace Phillips PROF 14(COMP METB)on 022 Albumin [Mass/Vol] 3.9 g/dL Normal 3.4-5.0 [facility] Comment on above: Performed By: #### T SH, CMP #### [facility] [address] [place] [address] Dr. Grace Phillips Albumin/Globulin [Mass ratio] 1.2 {ratio} Normal [facility] Comment on above: Performed By: #### T SH, CMP #### [facility] [address] [place] [address] Dr. Grace Phillips ALP [Catalytic activity/Vol] 56 U/L Normal 46-116 [facility] Comment on above: Performed By: #### T SH, CMP #### [facility] [address] [place] [address] Dr. Grace Phillips ALT [Catalytic activity/Vol] 18 U/L Normal 14-59 [facility] Comment on above: Performed By: #### T SAGRARIO, CMP #### [facility] [address] [place] [address] Dr. Grace Phillips Anion gap [Moles/Vol] 10.9 mmol/L Normal [facility] Comment on above: Performed By: #### T SH, CMP #### [facility] [address] [place] [address] Dr. Grace Phillips AST [Catalytic activity/Vol] 12 U/L Critically low 15-37 [facility] Comment on above: Performed By: #### T SAGRARIO, CMP #### [facility] [address] [place] [address] Dr. Grace Phillips Bilirubin [Mass/Vol] 0.2 mg/dL Normal 0.2-1.0 [facility] Comment on above: Performed By: #### T SH, CMP #### [facility] [address] [place] [address] Dr. Grace Phillips Calcium [Mass/Vol] 9.3 mg/dL Normal 8.5-10.1 [facility] Comment on above: Performed By: #### T SH, CMP #### [facility] [address] [place] [address] Dr. Grace Phillips Chloride [Moles/Vol] 104 mmol/L Normal 98-107 [facility] Comment on above: Performed By: #### T SH, CMP #### [facility] [address] [address] [address] Grace Phillips CO2 [Moles/Vol] 28.0 mmol/L Normal 21.0-32.0 [facility] Comment on above: Performed By: #### T SH, CMP #### [facility] [address] [address] [address] Grace Phillips Creatinine [Mass/Vol] 0.71 mg/dL Normal 0.55-1.02 [facility] Comment on above: Performed By: #### T SH, CMP #### [facility] [address] [place] [address] Dr. Grace Phillips EGFR-AF AZERBAIJANI >60 Normal >=60 [facility] Comment on above: Performed By: #### T SH, CMP #### [facility] [address] [place] [address] Dr. Grace Phillips EGFR-NON AF AZERBAIJANI >60 Normal >=60 [facility] Comment on above: Performed By: #### T SH, CMP #### [facility] [address] [address] [address] Grace Phillips Globulin (S) [Mass/Vol] 3.2 g/dL Normal [facility] Comment on above: Performed By: #### T SH, CMP #### [facility] [address] [address] [address] Grace Phillips Glucose [Mass/Vol] 97 mg/dL Normal 74-106 [facility] Comment on above: Performed By: #### T SH, CMP #### [facility] [address] [address] [address] Grace Phillips Potassium [Moles/Vol] 3.9 mmol/L Normal 3.5-5.1 [facility] Comment on above: Performed By: #### T SH, CMP #### [facility] [address] [place] [address] Dr. Grace Phillips Protein [Mass/Vol] 7.1 g/dL Normal 6.4-8.2 [facility] Comment on above: Performed By: #### T SH, CMP #### [facility] [address] [address] [address] Grace Phillips Sodium [Moles/Vol] 139 mmol/L Normal 136-145 [facility] Comment on above: Performed By: #### T SH, CMP #### [facility] [address] [address] [address] Grace Phillips Urea nitrogen [Mass/Vol] 13.0 mg/dL Normal 7.0-18.0 [facility] Comment on above: Performed By: #### T SH, CMP #### [facility] [address] [place] [address] Dr. Grace Phillips Urea nitrogen/Creatinine [Mass ratio] 18.3 mg/mg [facility] Comment on above: Performed By: #### T SAGRARIO, CMP #### [facility] [address] [place] [address] Dr. Grace Phillips TSHon 05-21-2022 TSH 1.765 uIU/mL Normal 0.358-3.740 [facility] Comment on above: Performed By: #### T SAGRARIO, CMP #### [facility] [address] [place] [address] Dr. Grace Phillips PAP ACOG PANEL 2: 21 to 31on 05-07-2022 . . [facility] Comment on above: Performed By: #### C BC #### [facility] [address] [place] [address] Dr. Grace Phillips Age Gdln ACOG Testing [facility] Comment on above: Performed By: #### C BC #### [facility] [address] [place] [address] Dr. Grace Phillips DIAGNOSIS: Comment [facility] Comment on above: Result Comment: NEGA TIVE FOR INTRAEPITHELIAL LESION OR MALIGNANCY. CELLULAR CHANGES ASSOCIATED WITH INFLAMMATION ARE PRESENT. Performed By: #### C BC #### [facility] [address] [place] [address] Dr. Grace Phillips Methodology: Comment [facility] Comment on above: Result Comment: This liquid based ThinPrep(R) pap test was screened with the use of an image guided system. Performed By: #### C BC #### [facility] [address] [place] [address] Dr. Grace Phillips Note: Comment Normal [facility] Comment on above: Result Comment: [...] By: #### C BC #### [facility] [address] [place] [address] Dr. Grace Phillips Performed by: Comment Normal [facility] Comment on above: Result Comment: Sveta Arredondo, Network Desktop Support Specialist (ASCP) Performed By: #### C BC #### [facility] [address] [place] [address] Dr. Grace Phillips Reflex Criteria: Comment Normal [facility] Comment on above: Result Comment: The HPV DNA reflex criteria were not met with this specimen result therefore, no HPV testing was performed. . Performed By: #### C BC #### [facility] [address] [place] [address] Dr. Grace Phillips Specimen adequacy: Comment Normal [facility] Comment on above: Result Comment: Sati sfactory for evaluation. Endocervical and/or squamous metaplastic cells (endocervical component) are present. Performed By: #### C BC #### [facility] [address] [place] [address] Dr. Grace Phillips VAGINITIS/VAGINOSIS DNA PROB David 03-21-2022 Caitlin species Negative Normal Negative [facility] Comment on above: Performed By: #### C BC #### [facility] [address] [place] [address] Dr. Grace Phillips Gardnerella vaginalis Negative Normal Negative [facility] Comment on above: Performed By: #### C BC #### [facility] [address] [place] [address] Dr. Grace Phillips Trichomonas vaginalis Negative Normal Negative [facility] Comment on above: Performed By: #### C BC #### [facility] [address] [place] [address] Dr. Grace Phillips CHLAMYDIA/GONOCOCCUS ERLIN (SW AB/URINE/PAPon 03-20-2022 Chlamydia trachomatis, ERLIN Negative Normal Negative [facility] Comment on above: Performed By: #### C BC #### [facility] [address] [place] [address] Dr. Grace Phillips Neisseria gonorrhoeae, ERLIN Negative Normal Negative [facility] Comment on above: Performed By: #### C BC #### [facility] [address] [place] [address] Dr. Grace Phillips CBC AUTO DIFFon 02-26-2022 BASO # 0.1 103/ul Normal 0.0-0.1 [facility] Comment on above: Performed By: #### C BC #### [facility] [address] [place] [address] Dr. Grace Phillips Basophils/100 WBC (Bld) 1.0 % Normal 0.2-2.0 [facility] Comment on above: Performed By: #### C BC #### [facility] [address] [place] [address] Dr. Grace Phlilips EO # 0.0 103/ul Normal 0.0-0.7 [facility] Comment on above: Performed By: #### C BC #### [facility] [address] [place] [address] Dr. Grace Phillips Eosinophils/100 WBC (Bld) 0.4 % Critically low 0.9-7.0 [facility] Comment on above: Performed By: #### C BC #### [facility] [address] [place] [address] Dr. Grace Phillips Erythrocyte distribution width (RBC) [Ratio] 13.4 % Normal 11.0-15.0 [facility] Comment on above: Performed By: #### C BC #### [facility] [address] [place] [address] Dr. Grace Phillips Hematocrit (Bld) [Volume fraction] 44.2 % Normal 36.0-48.0 [facility] Comment on above: Performed By: #### C BC #### [facility] [address] [place] [address] Dr. Grace Phillips Hemoglobin (Bld) [Mass/Vol] 14.7 g/dL Normal 12.0-16.0 [facility] Comment on above: Performed By: #### C BC #### [facility] [address] [place] [address] Dr. Grace Phillips IG # 0.03 10e3/ul Normal 0.00-0.03 [facility] Comment on above: Performed By: #### C BC #### [facility] [address] [place] [address] Dr. Grace Phillips IG % 0.4 % Normal 0.0-0.5 [facility] Comment on above: Performed By: #### C BC #### [facility] [address] [place] [address] Dr. Grace hPillips LYMPH # 2.3 103/ul Normal 1.2-3.8 [facility] Comment on above: Performed By: #### C BC #### [facility] [address] [place] [address] Dr. Grace Phillips Lymphocytes/100 WBC (Bld) 27.9 % Normal 20.5-60.0 [facility] Comment on above: Performed By: #### C BC #### [facility] [address] [place] [address] Dr. Grace Phillips MANUAL DIFF REQ NO Normal [facility] Comment on above: Performed By: #### C BC #### [facility] [address] [place] [address] Dr. Grace Phillips MCH (RBC) [Entitic mass] 29.2 pg Normal 26.7-34.0 [facility] Comment on above: Performed By: #### C BC #### [facility] [address] [place] [address] Dr. Grace Phillips MCHC (RBC) [Mass/Vol] 33.3 g/dL Normal 29.9-35.2 [facility] Comment on above: Performed By: #### C BC #### [facility] [address] [address] [address] Grace Phillips MCV (RBC) [Entitic vol] 87.7 fL Normal 81.0-99.0 [facility] Comment on above: Performed By: #### C BC #### [facility] [address] [address] [address] Grace Phillips MONO # 0.7 103/ul Normal 0.3-0.8 [facility] Comment on above: Performed By: #### C BC #### [facility] [address] [address] [address] Grace Phillips Monocytes/100 WBC (Bld) 8.0 % Normal 1.7-12.0 [facility] Comment on above: Performed By: #### C BC #### [facility] [address] [place] [address] Dr. Grace Phillips NEUT # 5.2 103/ul Normal 1.4-6.5 [facility] Comment on above: Performed By: #### C BC #### [facility] [address] [address] [address] Grace Phillips Neutrophils/100 WBC (Bld) 62.3 % Normal 43.0-75.0 [facility] Comment on above: Performed By: #### C BC #### [facility] [address] [address] [address] Grace Phillips Platelet mean volume (Bld) [Entitic vol] 11.5 fL Normal 9.5-13.5 [facility] Comment on above: Performed By: #### C BC #### [facility] [address] [address] [address] Grace Phillips PLT 291 103/ul Normal 150-450 [facility] Comment on above: Performed By: #### C BC #### [facility] [address] [address] [address] Grace Phillips RBC 5.04 106/ul Normal 4.20-5.40 [facility] Comment on above: Performed By: #### C BC #### [facility] [address] [address] [address] Grace Phillips WBC 8.3 103/ul Normal 4.0-11.0 [facility] Comment on above: Performed By: #### C BC #### [facility] [address] [place], [place] [address] Dr. Grace Phillips PREG HCG QUALon 02-26-2022 , QUAL Negative Normal NEGATIVE [facility] Comment on above: Performed By: #### U MICRO, ERUR #### [facility] [address] [address] [address] Grace Phillips Covid-19 PCR (CVDTBH)on 02-06 SARS-CoV-2 (COVID-19) RNA ERLIN+probe Ql (Unsp spec) Not detected Normal NOT DETECTED [facility] Comment on above: Result Comment: This test is not yet approved or cleared by the [place] FDA. When there are no FDA-approved or cleared tests available, and other criteria are met, FDA can make tests available under an emergency access mechanism called an Emergency Use Authorization (EUA). The EUA for this test is supported by the [place] of Health and Human Service's (HHS's) declaration [...] SARS-CoV-2. Performed By: #### C VDTBH #### [facility] [address] [place] [address] Dr. Grace Phillips CHLAMYDIA/GONOCOCCUS ERLIN (SW AB/URINE/PAPon 02-05-2022 Chlamydia trachomatis, ERLIN Negative Normal Negative The [facility] Comment on above: Performed By: #### U MICRO, ERUR #### [facility] [address] [address] [address] Grace Phillips Neisseria gonorrhoeae, ERLIN Negative Normal Negative The [facility] Comment on above: Performed By: #### U MICRO, ERUR #### [facility] [address] [address] [address] Grace Phillips VAGINITIS/VAGINOSIS DNA PROB David 02-04-2022 Caitlin species Negative Normal Negative The [facility] Comment on above: Performed By: #### U MICRO, ERUR #### [facility] [address] [address] [address] Grace Phillips Gardnerella vaginalis Negative Normal Negative The [facility] Comment on above: Performed By: #### U MICRO, ERUR #### [facility] [address] [address] [address] Grace Phillips Trichomonas vaginalis Negative Normal Negative The [facility] Comment on above: Performed By: #### U MICRO, ERUR #### [facility] [address] [address] [address] Grace Phillips US PELVIS AND TRANSVAGon [...] Date: 2022-02-03 17:00 Normal The [facility] OVA AND PARASITE EXAMINATION on 01-06-2022 Ova + Parasite Exam Final report Normal The [facility] Comment on above: Result Comment: Thes e results were obtained using wet preparation(s) and trichrome stained smear. This test does not include testing for Cryptosporidium parvum, Cyclospora, or Microsporidia. Performed By: #### O VAPE #### [facility] [address] [place] [address] Dr. Grace Phillips Result 1 Comment Normal The [facility] Comment on above: Result Comment: No o va, cysts, or parasites seen. . One negative specimen does not rule out the possibility of a parasitic infection. Performed By: #### O VAPE #### [facility] [address] [place] [address] Dr. Grace Phillips Result Comment: No S almonella or Shigella recovered. Performed By: #### C BC #### [facility] [address] [place] [address] Dr. Grace Phillips Result Comment: No C ampylobacter species isolated. STOOL CULTUREon 01-06-2022 Campylobacter Culture Final report Normal [facility] Comment on above: Performed By: #### C BC #### [facility] [address] [place] [address] Dr. Grace Phillips E coli Shiga Toxin EIA Negative Normal Negative The [facility] Comment on above: Performed By: #### C BC #### [facility] [address] [place] [address] Dr. Grace Phillips Salmonella/Shigella Screen Final report Normal The [facility] Comment on above: Performed By: #### C BC #### [facility] [address] [place] [address] Dr. Grace Phillips C. DIFF PCRon 01-02-2022 C. DIFFICILE PCR Negative Normal NEGATIVE The [facility] Comment on above: Performed By: #### C BC #### [facility] [address] [place] [address] Dr. Grace Phillips RAD EGD - documentation only do not orderon 05-13-2021 RAD EGD - documentation only do not order [facility] Other Coding Summary.on 02-03-2017 Coding Summary. CODING DATE: 02/03/2017 FINAL [facility] STATUS: Home (Routine DC) PAYOR: Medicaid ADMIT [...] Nat Buckley Date Saved: 02/03/2017 02:36 pm [facility] Vital Signs Date Time Vital Sign Value Performing Clinician Facility 03-20-2025 14:35-0400 Body mass index (BMI) [Ratio] 25.97 kg/m2 Timmy Baljit DO Work Phone: [facility] 03-20-2025 14:35-0400 Body weight 60.33 kg Timmy Baljit DO Work Phone: [facility] 03-20-2025 14:35-0400 Diastolic blood pressure 70 mm[Hg] Timmy Baljit DO Work Phone: [facility] 03-20-2025 14:35-0400 Systolic blood pressure 108 mm[Hg] Timmy Baljit DO Work Phone: [facility] 02-22-2025 14:24-0400 Body height 152.4 cm Dilia Rice DO Work Phone: [facility] 02-22-2025 14:24-0400 Body mass index (BMI) [Ratio] 25.6 kg/m2 Dilia Rice DO Work Phone: [facility] 02-22-2025 14:24-0400 Body temperature 98.6 [degF] Dilia Rice DO Work Phone: [facility] 02-22-2025 14:24-0400 Body weight 59.59 kg Dilia Rice DO Work Phone: [facility] 02-22-2025 14:24-0400 Diastolic blood pressure 87 mm[Hg] Dilia Rice DO Work Phone: [facility] 02-22-2025 14:24-0400 Heart rate 83 /min Dilia Rice DO Work Phone: [facility] 02-22-2025 14:24-0400 Respiratory rate 18 /min Dilia Rice DO Work Phone: [facility] 02-22-2025 14:24-0400 SaO2% (BldA) [Mass fraction] 97 % Dilia Rice DO Work Phone: [facility] 02-22-2025 14:24-0400 Systolic blood pressure 127 mm[Hg] Dilia Rice DO Work Phone: [facility] 02-19-2025 13:01-0400 Body height 152.4 cm Cristin Chandra MD Work Phone: [facility] 02-19-2025 13:01-0400 Body mass index (BMI) [Ratio] 25.39 kg/m2 Cristin Chandra MD Work Phone: [facility] 02-19-2025 13:01-0400 Body weight 58.97 kg Cristin Chandra MD Work Phone: [facility] 02-19-2025 13:01-0400 Diastolic blood pressure 84 mm[Hg] Cristin Chandra MD Work Phone: [facility] 02-19-2025 13:01-0400 Heart rate 102 /min Cristin Chandra MD Work Phone: [facility] 02-19-2025 13:01-0400 Respiratory rate 20 /min Cristin Chandra MD Work Phone: [facility] 02-19-2025 13:01-0400 SaO2% (BldA) [Mass fraction] 96 % Cristin Chandra MD Work Phone: [facility] 02-19-2025 13:01-0400 Systolic blood pressure 122 mm[Hg] Cristin Chandra MD Work Phone: [facility] 02-15-2025 14:39-0400 Body height 152.4 cm Tee Blancas MD Work Phone: [facility] 02-15-2025 14:39-0400 Body mass index (BMI) [Ratio] 24.41 kg/m2 Tee Blancas MD Work Phone: [facility] 02-15-2025 14:39-0400 Body weight 56.7 kg Tee Blancas MD Work Phone: [facility] 02-15-2025 14:39-0400 Diastolic blood pressure 98 mm[Hg] Tee Blancas MD Work Phone: [facility] 02-15-2025 14:39-0400 Heart rate 94 /min Tee Blancas MD Work Phone: [facility] 02-15-2025 14:39-0400 Systolic blood pressure 128 mm[Hg] Tee Blancas MD Work Phone: [facility] 02-09-2025 15:35-0400 Diastolic blood pressure 99 mm[Hg] Siomara Bolaños MD Work Phone: [facility] 02-09-2025 15:35-0400 Systolic blood pressure 152 mm[Hg] Siomara Bolaños MD Work Phone: [facility] 02-09-2025 11:40-0400 Body temperature 97.5 [degF] Siomara Bolaños MD Work Phone: [facility] 02-09-2025 11:40-0400 Heart rate 87 /min Siomara Bolaños MD Work Phone: [facility] 02-09-2025 11:40-0400 Respiratory rate 18 /min Siomara Bolaños MD Work Phone: [facility] 02-09-2025 11:40-0400 SaO2% (BldA) [Mass fraction] 98 % Siomara Bolaños MD Work Phone: [facility] 02-08-2025 22:30-0400 Body height 152.4 cm Siomara Bolaños MD Work Phone: [facility] 02-08-2025 22:30-0400 Body mass index (BMI) [Ratio] 25.35 kg/m2 Siomara Bolaños MD Work Phone: [facility] 02-08-2025 22:30-0400 Body weight 58.88 kg Siomara Bolaños MD Work Phone: [facility] 01-16-2025 14:15-0400 Body mass index (BMI) [Ratio] 24.18 kg/m2 Timmy Baljit DO Work Phone: [facility] 01-16-2025 14:15-0400 Body weight 56.16 kg Timmy Baljit DO Work Phone: [facility] 01-16-2025 14:15-0400 Diastolic blood pressure 60 mm[Hg] Timmy Baljit DO Work Phone: [facility] 01-16-2025 14:15-0400 Systolic blood pressure 120 mm[Hg] Timmy Baljit DO Work Phone: [facility] 12-14-2024 14:31-0400 Body height 152.4 cm Tee Blancas MD Work Phone: [facility] 12-14-2024 14:31-0400 Body mass index (BMI) [Ratio] 28.12 kg/m2 Tee Blancas MD Work Phone: [facility] 12-14-2024 14:31-0400 Body weight 65.32 kg Tee Blancas MD Work Phone: [facility] 12-14-2024 14:31-0400 Diastolic blood pressure 78 mm[Hg] Tee Blancas MD Work Phone: [facility] 12-14-2024 14:31-0400 Heart rate 93 /min Tee Blancas MD Work Phone: [facility] 12-14-2024 14:31-0400 SaO2% (BldA) [Mass fraction] 99 % Tee Blancas MD Work Phone: [facility] 12-14-2024 14:31-0400 Systolic blood pressure 124 mm[Hg] Tee Blancas MD Work Phone: [facility] 12-11-2024 23:59-0400 SaO2% (BldA) [Mass fraction] 94 % [facility] Comment on above: Performed By: #### ABG ####[facility] ([facility])[address] [place] [address] VIR 12-06-2024 04:08-0400 SaO2% (BldA) [Mass fraction] 94 % [facility] Comment on above: Performed By: #### PTT #### [facility] ([facility] [address] [place] [address] VIR 12-04-2024 09:14-0400 Respiratory rate 20 /min Dilia Rice DO Work Phone: [facility] 12-04-2024 09:14-0400 SaO2% (BldA) [Mass fraction] 98 % Dilia Rice DO Work Phone: [facility] 12-04-2024 09:13-0400 Diastolic blood pressure 58 mm[Hg] Dilia Rice DO Work Phone: [facility] 12-04-2024 09:13-0400 Heart rate 50 /min Dilia Rice DO Work Phone: [facility] 12-04-2024 09:13-0400 Systolic blood pressure 106 mm[Hg] Dilia Rice DO Work Phone: [facility] 12-04-2024 08:48-0400 Body height 152.4 cm Dilia Rice DO Work Phone: [facility] 12-04-2024 08:48-0400 Body weight 63.8 kg Dilia Rice DO Work Phone: [facility] 12-04-2024 08:28-0400 Body temperature 97.5 [degF] Dilia Rice DO Work Phone: [facility] 11-23-2024 13:42-0400 Body height 152.4 cm Minoo Hemmer PA Work Phone: [facility] 11-23-2024 13:42-0400 Body mass index (BMI) [Ratio] 27.07 kg/m2 Minoo Hemmer PA Work Phone: [facility] 11-23-2024 13:42-0400 Body temperature 98.8 [degF] Minoo Hemmer PA Work Phone: [facility] 11-23-2024 13:42-0400 Body weight 62.87 kg Minoo Hemmer PA Work Phone: [facility] 11-23-2024 13:42-0400 Diastolic blood pressure 62 mm[Hg] Minoo Hemmer PA Work Phone: [facility] 11-23-2024 13:42-0400 Heart rate 62 /min Minoo Hemmer PA Work Phone: [facility] 11-23-2024 13:42-0400 Respiratory rate 16 /min Minoo Hemmer PA Work Phone: [facility] 11-23-2024 13:42-0400 SaO2% (BldA) [Mass fraction] 98 % Minoo Hemmer PA Work Phone: [facility] 11-23-2024 13:42-0400 Systolic blood pressure 94 mm[Hg] Minoo Hemmer PA Work Phone: [facility] 11-13-2024 14:31-0400 Body mass index (BMI) [Ratio] 25.29 kg/m2 Timmy Knutsono DO Work Phone: [facility] 11-13-2024 14:31-0400 Body weight 58.74 kg Timmy Baljit DO Work Phone: [facility] 11-13-2024 14:31-0400 Diastolic blood pressure 70 mm[Hg] Timmy Baljit DO Work Phone: [facility] 11-13-2024 14:31-0400 Systolic blood pressure 110 mm[Hg] Timmy Baljit DO Work Phone: [facility] 11-01-2024 16:08-0400 Body mass index (BMI) [Ratio] 26.37 kg/m2 Timmy Baljit DO Work Phone: [facility] 11-01-2024 16:08-0400 Body weight 61.24 kg Timmy Bajlit DO Work Phone: [facility] 11-01-2024 16:08-0400 Diastolic blood pressure 68 mm[Hg] Timmy Baljit DO Work Phone: [facility] 11-01-2024 16:08-0400 Systolic blood pressure 110 mm[Hg] Timmy Baljit DO Work Phone: [facility] 10-09-2024 09:35-0500 Body height 152.4 cm Tee Blancas MD Work Phone: [facility] 10-09-2024 09:35-0500 Body mass index (BMI) [Ratio] 26.76 kg/m2 Tee Blancas MD Work Phone: [facility] 10-09-2024 09:35-0500 Body weight 62.14 kg Tee Blancas MD Work Phone: [facility] 10-09-2024 09:35-0500 Diastolic blood pressure 52 mm[Hg] Tee Blancas MD Work Phone: [facility] 10-09-2024 09:35-0500 Heart rate 73 /min Tee Blancas MD Work Phone: [facility] 10-09-2024 09:35-0500 SaO2% (BldA) [Mass fraction] 99 % Tee Blancas MD Work Phone: [facility] 10-09-2024 09:35-0500 Systolic blood pressure 98 mm[Hg] Tee Blancas MD Work Phone: [facility] 08-31-2024 11:06-0500 Body height 152.4 cm Minoo Hemmer PA Work Phone: [facility] 08-31-2024 11:06-0500 Body mass index (BMI) [Ratio] 26.56 kg/m2 Minoo Hemmer PA Work Phone: [facility] 08-31-2024 11:06-0500 Body weight 61.69 kg Minoo Hemmer PA Work Phone: [facility] 08-31-2024 11:06-0500 Diastolic blood pressure 62 mm[Hg] Minoo Hemmer PA Work Phone: [facility] 08-31-2024 11:06-0500 Heart rate 92 /min Minoo Hemmer PA Work Phone: [facility] 08-31-2024 11:06-0500 Respiratory rate 16 /min Minoo Hemmer PA Work Phone: [facility] 08-31-2024 11:06-0500 SaO2% (BldA) [Mass fraction] 97 % Minoo Hemmer PA Work Phone: [facility] 08-31-2024 11:06-0500 Systolic blood pressure 98 mm[Hg] Minoo Hemmer PA Work Phone: [facility] 08-14-2024 15:24-0500 Body mass index (BMI) [Ratio] 28.01 kg/m2 Timmy Baljit DO Work Phone: [facility] 08-14-2024 15:24-0500 Body weight 65.05 kg Timmy Baljit DO Work Phone: [facility] 08-14-2024 15:24-0500 Diastolic blood pressure 58 mm[Hg] Timmy Baljit DO Work Phone: [facility] 08-14-2024 15:24-0500 Systolic blood pressure 100 mm[Hg] Timmy Smiley DO Work Phone: [facility] 05-22-2024 15:05-0400 Body height 152.4 cm Tee Blancas MD Work Phone: [facility] 05-22-2024 15:05-0400 Body mass index (BMI) [Ratio] 28.12 kg/m2 Tee Blancas MD Work Phone: [facility] 05-22-2024 15:05-0400 Body weight 65.32 kg Tee Blancas MD Work Phone: [facility] 05-22-2024 15:05-0400 Diastolic blood pressure 68 mm[Hg] Tee Blancas MD Work Phone: [facility] 05-22-2024 15:05-0400 Heart rate 81 /min Tee Blancas MD Work Phone: [facility] 05-22-2024 15:05-0400 SaO2% (BldA) [Mass fraction] 98 % Tee Blancas MD Work Phone: [facility] 05-22-2024 15:05-0400 Systolic blood pressure 92 mm[Hg] Tee Blancas MD Work Phone: [facility] 10-13-2023 11:03-0500 Body height 152.4 cm Caty Tillman MD Work Phone: [facility] 10-13-2023 11:03-0500 Body mass index (BMI) [Ratio] 27.13 kg/m2 Caty Tillman MD Work Phone: [facility] 10-13-2023 11:03-0500 Body weight 63 kg Caty Tillman MD Work Phone: [facility] 10-13-2023 11:03-0500 Diastolic blood pressure 51 mm[Hg] Caty Tillman MD Work Phone: [facility] 10-13-2023 11:03-0500 Heart rate 72 /min Caty Tillman MD Work Phone: [facility] [employer] [facility] 10-13-2023 11:03-0500 Systolic blood pressure 101 mm[Hg] Caty Tillman MD Work Phone: [facility] 09-06-2023 15:45-0500 Body mass index (BMI) [Ratio] 27.54 kg/m2 Timmy Baljit DO Work Phone: [facility] 09-06-2023 15:45-0500 Body weight 63.96 kg Timmy Baljit DO Work Phone: [facility] 09-06-2023 15:45-0500 Diastolic blood pressure 70 mm[Hg] Timmy Baljit DO Work Phone: [facility] 09-06-2023 15:45-0500 Systolic blood pressure 120 mm[Hg] Timmy Baljit DO Work Phone: [facility] 12-04-2022 10:54-0400 Body height 152.4 cm Referring Provider Unknown PS-Uaclyynnojcyai-Mk [place] Work Phone: 12-04-2022 10:54-0400 Body mass index (BMI) [Ratio] 29.15 kg/m2 Referring Provider Unknown UU-Fwqfwbuiyawjao-Fn [place] Work Phone: 12-04-2022 10:54-0400 Body surface area Derived from formula 1.65 m2 Referring Provider Unknown MX-Mzbrrnhlfejleg-De [place] Work Phone: 12-04-2022 10:54-0400 Body temperature 97.4 [degF] Referring Provider Unknown FQ-Ydxldwfusubyjo-Hr [place] Work Phone: 12-04-2022 10:54-0400 Body weight 67.7 kg Referring Provider Unknown UG-Rwatmhyfuhffxr-Lr [place] Work Phone: 12-04-2022 10:54-0400 0 1 Referring Provider Unknown MC-Yoystypawtvuyq-Vt [place] Work Phone: Comment on above: [employer] 05-06-2021 15:45-0400 Body height 152.4 cm Kati Gupta Other [facility] Other 05-06-2021 15:45-0400 Body mass index (BMI) [Ratio] 29.55 kg/m2 Kati Gupta Other [facility] Other 05-06-2021 15:45-0400 Body weight 68.63 kg Kati Gupta Other [facility] Other Encounters Encounter Date Encounter Type Care Provider Facility Start: 04-10-2025 End: 04-10-2025 Refill Tee Blancas MD Work Phone: [facility] Comment on above: Anxiety; Irregular heart rhythm; Primary hypertension Start: 04-08-2025 End: 04-08-2025 Refill Delvis Chan RECLAMATION FURNACE OPERATOR-CHANGE CONTROL SPECIALIST Work Phone: [facility] Start: 03-20-2025 End: 03-20-2025 ambulatory TIMMY BALJIT Not Available Start: 03-20-2025 End: 03-20-2025 Office outpatient visit 15 minutes Timmy Baljit DO Work Phone: [facility] Comment on above: Hormone disorder; Vaginal pain Start: 03-20-2025 End: 03-20-2025 Bamboo flowsheet Timmy Baljit DO Work Phone: [facility] Start: 03-20-2025 End: 03-20-2025 Bamboo flowsheet Timmy Baljit DO Work Phone: [facility] Start: 03-20-2025 End: 03-20-2025 ambulatory [facility] Start: 03-19-2025 End: 03-19-2025 Refill Tee Blancas MD Work Phone: [facility] Comment on above: Anxiety Start: 03-12-2025 End: 03-12-2025 Orders Only Cristin Chandra MD Work Phone: [facility] Comment on above: Primary hypertension (Primary Dx) Start: 03-08-2025 End: 03-13-2025 Telephone encounter Cristin Chandra MD Work Phone: [facility] Comment on above: Results Start: 03-05-2025 End: 03-05-2025 Refill Delvis Chan RECLAMATION FURNACE OPERATOR-CHANGE CONTROL SPECIALIST Work Phone: [facility] Start: 02-26-2025 End: 02-26-2025 Telephone encounter Kate Lyon MA [facility] Start: 02-26-2025 ambulatory TEE BLANCAS [facility] Start: 02-23-2025 ambulatory KVNG REYNOSO [facility] Start: 02-22-2025 End: 02-22-2025 ambulatory Dilia Cleary DO Work Phone: [facility] Work Phone: Start: 02-22-2025 End: 02-22-2025 Patient encounter procedure Kvng Reynoso MD -[facility] Work Phone: Start: 02-22-2025 End: 02-22-2025 Telephone encounter Gonzales Still LPC [facility] Comment on above: Appointment (Clinici an [...] 02-14-2025 Clinical Support Gonzales Still LPC [facility] Comment on above: PTSD (post-traumatic stress disorder) ; Generalized anxiety disorder with panic attacks Start: 02-13-2025 End: 02-13-2025 Emergency department patient visit [facility] Start: 02-12-2025 End: 02-12-2025 Online digital e/m svc est pt <7 d 5-10 minutes Timmy Smiley DO Work Phone: [facility] Comment on above: Hormone disorder (Pr imary Dx); Vaginal pain Start: 02-08-2025 End: 02-09-2025 ambulatory [facility] Start: 02-08-2025 End: 02-09-2025 Evaluation and management of inpatient Aleja Munoz DO Work Phone: [facility] Comment on above: Hypokalemia (Primary Dx); Uncontrolled hypertension Start: 02-07-2025 End: 02-07-2025 Clinical Support Gonzales 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 [facility] Comment on above: PTSD (post-traumatic stress disorder) ; Generalized anxiety disorder with panic attacks Start: 01-23-2025 End: 01-29-2025 Clinisync Result Encounter Generic External Data Provider [facility] External Department Unsolicited Start: 01-23-2025 End: 01-29-2025 Clinisync Result Encounter Generic External Data Provider [facility] External Department Unsolicited Start: 01-22-2025 End: 01-22-2025 ambulatory [facility] Start: 01-18-2025 End: 01-18-2025 Emergency department patient visit TEE BLANCAS [facility] Start: 01-17-2025 End: 01-17-2025 Clinisync [...] 01-08-2025 End: 01-08-2025 [facility] Start: 01-08-2025 ambulatory CAROLE Dominguez [facility] Start: 01-03-2025 End: 01-03-2025 Emergency department patient visit Ulisses Serrano [facility] Start: 01-02-2025 End: 01-02-2025 Chart abstracting [facility] Start: 12-28-2024 End: 12-28-2024 ambulatory [...] Telephone encounter Mahsa Reagan MD Work Phone: [facility] Start: 12-04-2024 End: 12-04-2024 ambulatory UNKNOWN PROVIDER Facility:[facility] Start: 12-04-2024 ambulatory [facility] Start: 12-04-2024 Emergency department [facility] Start: 12-04-2024 ambulatory [facility] Start: 12-04-2024 End: 12-12-2024 Evaluation and management of inpatient [facility] Start: 12-04-2024 End: 12-04-2024 Emergency department patient visit Dilia Cleary DO Work Phone: [facility] Work Phone: Start: 11-29-2024 End: 11-29-2024 [...] 15 minutes Timmy Baljit DO Work Phone: [facility] Comment on above: Vaginal irritation; Vaginal pain; H/O: hysterectomy; History of episiotomy Start: 11-01-2024 End: 11-01-2024 Bamboo flowsheet Timmy Baljit DO Work Phone: [facility] Start: 11-01-2024 End: 11-01-2024 Bamboo flowsheet Timmy Baljit DO Work Phone: [facility] Start: 10-26-2024 End: 10-26-2024 Refill Michelle Crowell MA [facility] Comment on above: Generalized anxiety disorder (CMS/HCC) Start: 10-23-2024 End: 10-23-2024 ambulatory RHANDA KARINA-MORIN Not Available Start: 10-17-2024 End: 10-17-2024 Telemedicine consultation with patient Rhanda Johnson-Morin [facility] Comment on above: PTSD (post-traumatic stress disorder) ([facility]); Generalized anxiety disorder with panic attacks ([facility]); Grief counseling; History of non-suicidal self-harm Start: 10-17-2024 End: 10-17-2024 ambulatory RHANDA KARINA-MORIN Not Available Start: 10-16-2024 End: 10-16-2024 Refill Tee Blancas MD Work Phone: [facility] Comment on above: Fibromyalgia Start: 10-09-2024 End: 10-09-2024 ambulatory RHANDA KARINA-MORIN Not Available Start: 10-09-2024 End: 10-09-2024 Telemedicine consultation with patient Rhanda Karina-Morin [facility] Comment on above: PTSD (post-traumatic stress [...] 09-12-2024 End: 09-12-2024 Clinical Support Gonzales Still [facility] Comment on above: Grief reaction (CMS/ HCC); [...] (CMS/HCC) Start: 08-31-2024 End: 08-31-2024 ambulatory MINOO VINESMICHAEL Not Available Start: 08-16-2024 End: 08-17-2024 Telephone [...] 04-07-2024 Emergency department patient visit SPENSER BARROSO [facility] Start: 04-01-2024 End: 04-01-2024 Emergency department patient visit TEE BLANCAS [facility] Start: 02-04-2024 End: 02-04-2024 ambulatory PHYSICIAN [facility] Work Phone: Start: 02-04-2024 End: 02-04-2024 Departed Referred PHYSICIAN BINH [facility] Path [facility] Start: 10-29-2023 Telephone encounter Caty melara MD Work Phone: [facility] Start: 10-14-2023 Telephone encounter Sarah Vinson RN [facility] Start: 10-13-2023 End: 10-13-2023 Office outpatient new 60 minutes Caty Tillman MD Work Phone: [facility] Comment on above: Easy bruising (Prima ry Dx); History of uterine bleeding Start: 09-06-2023 End: 09-06-2023 Postop follow up visit related to original px Timmy Smiley DO Work Phone: [facility] Comment on above: Incisional irritatio n, initial encounter; S/P laparoscopic surgery; Wound infection following procedure; Yeast infection Start: 01-18-2023 ambulatory MATEO DASH Facility:[id number] Start: 01-01-2023 ambulatory MATEO DASH Facility:[id number] Start: 12-24-2022 End: 12-24-2022 ambulatory MATEO DASH Facility:[facility] Start: 12-24-2022 End: 12-24-2022 Subsequent hospital visit by physician Mateo Dash MD Work Phone: [facility] Comment on above: Deviated nasal septu m; Hypertrophy of nasal turbinates; Other specified disorders of nose and nasal sinuses; Unspecified asthma, uncomplicated; Anxiety disorder, unspecified; Depression, unspecified; Gastro-esophageal reflux disease without esophagitis; Nicotine dependence, unspecified, uncomplicated Start: 12-04-2022 Office consultation new/estab patient 80 min Referring Provider Unknown [facility] Work Phone: Start: 12-04-2022 ambulatory PCP [...] DR TIMMY SMILEY . [facility] Start: 07-23-2022 End: 07-24-[address] TIMMY SMILEY . Facility:[facility]1 Start: 07-23-2022 End: 07-24-2022 Encounter for preprocedural laboratory examination DR TIMMY SMILEY . Facility:[facility] Start: 07-18-2022 Encounter for preprocedural cardiovascular examination DR TIMMY SMILEY . [facility] Start: 07-14-2022 End: 07-15-[address] TIMMY SMILEY . Facility:[facility] Start: 07-14-2022 End: 07-15-2022 Encounter for preprocedural cardiovascular examination DR TIMMY SMILEY . Facility:[facility] Start: 05-21-2022 End: 05-22-[address] TEE BLANCAS Facility:[facility] Start: 04-29-2022 End: 04-29-2022 ambulatory GARCIA BRICENO Facility:[facility] Start: 04-15-2022 End: 04-15-2022 ambulatory Casa Wahl Other [facility] Other Start: 04-15-2022 Telephone encounter Casa Davis ck [facility] Start: 04-01-2022 ambulatory GARCIA BRICENO Facilit y:[facility]1 Start: 03-18-2022 End: 03-18-2022 ambulatory GARCIA BRICENO Facility:[facility] Start: 02-26-2022 End: 02-26-2022 ambulatory GARCIA BRICENO Facility:[facility] Start: 02-23-2022 End: 02-24-2022 ambulatory GARCIA BRICENO Facility:[facility] Start: 02-18-2022 Encounter for other preprocedural examination DR TIMMY SMILEY . [facility] Start: 02-13-2022 End: 02-14-2022 ambulatory GARCIA BRICENO Facility:[facility] Start: 02-13-2022 End: 02-14-2022 Encounter for other preprocedural examination GARCIA BRICENO Facility:[facility] Start: 02-02-2022 End: 02-03-[address] TIMMY SMILEY . Facility:[facility] Start: 01-02-2022 End: 01-03-2022 ambulatory KATI GUPTA JR Facility:[facility]1 Start: 01-01-2022 End: 01-01-2022 ambulatory Kati Gupta Other [facility] Other Start: 01-01-2022 Telephone encounter Kati Gupta [facility] Start: 12-16-2021 End: 12-16-2021 ambulatory Kati Gupta Other [facility] Other Start: 12-16-2021 Telephone encounter Kati Gupta [facility] Start: 05-21-2021 Telephone encounter Kati Gupta [facility] Start: 05-06-2021 Office outpatient vi sit 25 minutes Kati Gupta [facility] Procedures Date Procedure Procedure Detail Performing Clinician Start: 02-09-2025 Potassium serum plasma/whole blood Siomara Bolaños MD Work Phone: Start: 02-09-2025 Potassium serum plasma/whole blood Jazmin Amin RECLAMATION FURNACE OPERATOR-CHANGE CONTROL SPECIALIST Work Phone: Start: 02-09-2025 EXTRA TUBES Siomara Bolaños MD Work Phone: Start: 02-09-2025 EXTRA TUBES SST TOP Blayneq dae Bolaños MD Work Phone: Start: 02-09-2025 Comprehensive metabo lic panel Jazmin Amin RECLAMATION FURNACE OPERATOR-CHANGE CONTROL SPECIALIST Work Phone: Start: 02-08-2025 Assay of troponin [...] on above: Result Comment: PERF ORMED BY: [facility] [address] [place] [address] PATHOLOGIST AUTOMATIC SILK SCREEN PRINTER MALOU CALLE M.D. Start: 12-04-2024 Antibody screen TEE NEGRO Comment on above: Performed By: #### T SC ####[facility])[address] [place] [address] VIR Start: 12-04-2024 Adult depression screening assessment [...] of 2) Zoster Vaccines (1 of 2) [facility] Start: 02-13-2026 Adult BMI Screening Adult BMI Screening [facility] Start: 02-13-2026 Tobacco Screening Tobacco Screening [facility] Start: 02-08-2026 Depression Screening Depression Screening [facility] [facility] Start: 12-07-2025 Adult BMI Screening Adult BMI Screening [facility] Start: 12-04-2025 Depression Screening Depression Screening [facility] Start: 12-04-2025 Tobacco Screening Tobacco Screening [facility] [facility] Start: 05-21-2025 End: 05-21-2025 Patient encounter procedure [facility] Start: 05-09-2025 Influenza vaccination [facility] Comment on above: Postponed from 04/09/2024 (Other Patient Reasons) Postponed from 04/09 (Other Patient Reasons) Start: 04-25-2025 End: 04-25-2025 Patient encounter procedure 04/25/2025 2:10 PM EDT Office Visit [facility] [address] [facility] [place] [phone] Timmy Smiley, DO [address] [place] [address] [facility] [place] [facility] Start: 04-09-2025 Influenza vaccination [facility] Start: 03-20-2025 End: 03-20-2025 Patient encounter procedure 03/20/2025 2:20 PM EDT Office Visit [facility] [address] [facility] [place] [address] Timmy Smiley, DO [address] [place] [address] VIB[facility] ABREU Start: 03-12-2025 End: 03-12-2026 Cortisol, urine, 24 hour Cortisol, urine, 24 hour Lab Routine Primary hypertension Expected: 03/12/2025 (Approximate), Expires: 03/12/2026 [facility] Work Phone: Comment on above: Expected: 03/12/2025 (Approximate), Expi res: 03/12/2026 Start: 03-12-2025 End: 03-12-2026 Creatinine, urine, 24 hour Creatinine, urine, 24 hour Lab Routine Primary hypertension Expected: 03/12/2025 (Approximate), Expires: 03/12/2026 [facility] Comment on above: Expected: 03/12/2025 (Approximate), Expi res: 03/12/2026 Start: 02-26-2025 End: 02-26-2025 Patient encounter procedure 02/26/2025 3:30 PM EDT Office Visit [facility] [place] [address] Carole Franklin, DO [address] [place] [address] [facility] Start: 02-22-2025 End: 02-22-2025 Telemedicine consultation with patient 02/22/2025 12:00 PM EDT Telemedicine [facility] [address] [place] [address] Gonzales Still LPC [facility] Start: 02-19-2025 End: 02-19-2026 ALDOSTERONE/PLASMA RENIN ACTIVITY RATIO, LC/MS/MS ALDOSTERONE/PLASMA RENIN ACTIVITY RATIO, LC/MS/MS Lab Routine Primary hypertension Expected: 02/19/2025 (Approximate), Expires: 02/19/2026 [facility] Comment on above: Expected: 02/19/2025 (Approximate), Expi res: 02/19/2026 Start: 02-19-2025 End: 02-19-2026 Basic metabolic 1998 panel - Serum or Plasma Basic metabolic panel Lab Routine Primary hypertension Expected: 02/19/2025 (Approximate), Expires: 02/19/2026 [facility] Work Phone: Comment on above: Expected: 02/19/2025 (Approximate), Expi res: 02/19/2026 Start: 02-19-2025 End: 02-19-2026 Cortisol AM Cortisol AM Lab Routine Primary hypertension Expected: 02/19/2025 (Approximate), Expires: 02/19/2026 [facility] Comment on above: Expected: 02/19/2025 (Approximate), Expi res: 02/19/2026 Start: 02-19-2025 End: 02-19-2026 Metanephrines Plasma Metanephrines Plasma Lab Routine Primary hypertension Expected: 02/19/2025 (Approximate), Expires: 02/19/2026 [facility] Comment on above: Expected: 02/19/2025 (Approximate), Expi res: 02/19/2026 Start: 02-19-2025 End: 02-19-2025 Patient encounter procedure 02/19/2025 1:00 PM EDT Office Visit [facility] [address] [place] [address] Cristin Chandra MD [address], [address] [place] [address] [facility] Start: 02-16-2025 End: 02-09-2026 Basic metabolic 2000 panel - Serum or Plasma Basic Metabolic Panel Lab Routine Hypokalemia Expected: 02/16/2025 (Approximate), Expires: 02/09/2026 [facility] Work Phone: Comment on above: Expected: 02/16/2025 (Approximate), Expi res: 02/09/2026 Start: 02-15-2025 End: 02-15-2025 Patient encounter procedure 02/15/2025 2:30 PM EDT Office Visit [facility] [address] [place] [phone] Tee Blancas MD [address] [place] [address] [facility] Start: 02-15-2025 End: 02-15-2026 [...] patient 02/14/2025 1:00 PM EDT Telemedicine [facility] [address] [place] [address] Gonzales Still LPC [facility] Start: 02-06-2025 End: 02-06-2025 Patient encounter procedure 02/06/2025 8:10 AM EDT Office Visit [facility] [address] [place] [address] Timmy Smiley DO [address] [place] [address] [facility] Start: 01-16-2025 End: 01-16-2025 Patient encounter procedure [facility] Comment on above: Arrived Start: 01-16-2025 [...] 01-16-2026 Thyrotropin [Units/volume] in Serum or Plasma [facility] Comment on above: Ordered: 01/16/2025 Expected: 01/16/2025 (Approximate), Expires: 01/16/2026 Start: 01-09-2025 End: 01-09-2025 Patient encounter procedure 01/09/2025 9:30 AM EDT Office Visit [facility] [address] [place] [address] Wolf Martell MD [address] [place] [address] [facility] Start: 01-08-2025 End: 01-08-2025 Patient encounter procedure 01/08/2025 3:30 PM EDT Office Visit [facility] [address] [place] [address] Carole Franklin, DO [address] [facility] [address] [place] [address] [facility] Start: 12-28-2024 End: 12-28-2024 Patient encounter procedure 12/28/2024 2:30 PM EDT Office Visit [facility] [address] [facility] [address] [place] [address] Tee Blancas MD [address] [facility] [address] [place] [address] [facility] Start: 11-27-2024 End: 11-27-2024 Patient encounter procedure 11/27/2024 8:15 AM EDT Office Visit [facility] [address] [facility] [address] [place] [address] Tee Blancas MD [address] [facility] [address] [place] [address] [facility] Start: 11-13-2024 End: 11-13-2024 Patient encounter procedure 11/13/2024 2:20 PM EDT Consult [facility] [address] [place] [address] Timmy Smiley DO [address] [place] [address] [facility] Start: 10-30-2024 End: 10-30-2024 Telemedicine consultation with patient 10/30/2024 12:00 PM EDT Telemedicine [facility] [address] [place] [phone] Gonzales Still LPC [facility] Start: 10-23-2024 End: 10-23-2024 Telemedicine consultation with patient 10/23/2024 12:00 PM EDT Telemedicine [facility] [address] [place] [address] Gonzales Still LPC [facility] Start: 10-17-2024 End: 10-17-2024 Telemedicine consultation with patient 10/17/2024 1:00 PM EDT Telemedicine [facility] [address] [place] [address] Gonzales Still LPC [facility] Start: 10-12-2024 Adult BMI Screening Adult BMI Screening [facility] Start: 10-12-2024 Depression Screening Depression Screening [facility] Start: 10-12-2024 Tobacco Screening Tobacco Screening [facility] Start: 10-09-2024 End: 10-09-2024 Clinical Support [facility] Start: 10-03-2024 End: 10-03-2024 Patient encounter procedure 10/03/2024 4:30 PM EST Office Visit [facility] [address] [place] [address] Tee Blancas MD [address] [place] [address] [facility] Start: 09-19-2024 End: 09-19-2024 Clinical Support 09/19/2024 12:00 PM EST Clinical Support [facility] [address] [place] [phone] Gonzales Still LPC [facility] Start: 08-31-2024 End: 08-31-2024 Patient encounter procedure 08/31/2024 11:00 AM EST Office Visit [facility] [address] [place] [address] Minoo Barbour PA [address] [place] [address] Arrived [facility] Comment on above: Arrived Start: 08-21-2024 End: 08-21-2024 Patient encounter procedure 08/21/2024 1:45 PM EST Office Visit [facility] [address] [place] [address] Tee Blancas MD [address] [place] [address] [facility] Start: 08-14-2024 End: 08-14-2024 Patient encounter procedure [facility] Comment on above: Arrived Start: 04-09-2024 COVID-19 Vaccine ( season) COVID-19 Vaccine ( season) [facility] Start: 02-06-2024 Influenza vaccination Influenza Vaccine (#1) [facility] Comment on above: Postponed from 04/09/2023 (Other Patient Reasons) Start: 04-09-2023 COVID-19 Vaccine ( season) COVID-19 Vaccine () [facility] Start: 04-09-2023 Influenza vaccination [facility] Start: 04-04-2020 DTaP,Tdap and Td Vaccines (7 - Td or Tdap) DTaP,Tdap and Td Vaccines (7 - Td or Tdap) [facility] Start: 12-03-2019 DTaP/Tdap/Td Vaccines (1 - Tdap) DTaP/Tdap/Td Vaccines (1 - Tdap) [facility] Start: 2018 Screening for malignant neoplasm of cervix [facility] Start: 12-03-2015 Adult BMI Follow Up Plan Adult BMI Follow Up Plan [facility] Start: 12-03-2015 Hepatitis C screening Hepatitis C Screening [facility] Start: 2008 HPV Vaccines (1 - 2-dose series) HPV Vaccines (1 - 2-dose series) [facility] Start: 1998 MMR Vaccines (1 of 1 - Standard series) MMR Vaccines (1 of 1 - Standard series) [facility] Start: 1998 Varicella vaccination Varicella Vaccines (1 of 2 - 2-dose childhood series) [facility] Start: 06-03-1998 COVID-19 Vaccine (#1) COVID-19 Vaccine (#1) [facility] Start: 1997 Hepatitis B Vaccines (1 of 3 - 3-dose series) Hepatitis B Vaccines (1 of 3 - 3-dose series) [facility] Start: 1997 HIV screening HIV Screening [facility] Start: 1997 Lipid panel Lipid Panel [facility] Start: 1997 Tobacco Counseling Tobacco Counseling [facility] Start: 1997 Yearly Adult Physical Yearly Adult Physical [facility] CBC W Auto Different ial panel - Blood CBC auto differential Lab Routine Lab max of 3 days, Daily, for lab use only until discontinued starting 02/09/2025, 1 completed [employer] Comment on above: Lab max of 3 days, Daily, for lab use on ly until discontinued starting 02/09/2025, 1 completed Comprehensive metabo lic 2000 panel - Serum or Plasma Comprehensive metabolic panel Lab Routine Lab max of 3 days, Daily, for lab use only until discontinued starting 02/09/2025, 1 completed [employer] Comment on above: Lab max of 3 days, Daily, for lab use on ly until discontinued starting 02/09/2025, 1 completed Cytology Cervical or vaginal smear or scraping study Pap Smear Pathology and Cytology Routine Well woman exam with routine gynecological exam Ordered: 08/14/2024 [facility] Work Phone: Comment on above: Ordered: 08/14/2024 DHEA-sulfate DHEA-sulfate Lab Routine Hormone disorder Ordered: 01/16/2025 [facility] Comment on above: Ordered: 01/16/2025 Estradiol Estradiol Lab Ro utine Hormone disorder Ordered: 01/16/2025 [facility] Work Phone: Comment on above: Ordered: 01/16/2025 Estrone Estrone Lab Rout ine Hormone disorder Ordered: 01/16/2025 [facility] Comment on above: Ordered: 01/16/2025 Ferritin [Mass/volum e] in Serum or Plasma Ferritin Lab Routine Hormone disorder Ordered: 01/16/2025 [facility] Comment on above: Ordered: 01/16/2025 Hemoglobin A1c/Hemoglobin.total in Blood Hemoglobin A1c Lab Routine Hormone disorder Ordered: 01/16/2025 [facility] Comment on above: Ordered: 01/16/2025 Magnesium [Mass/volu me] in Serum or Plasma Magnesium Lab Routine Lab max of 3 days, Daily, for lab use only until discontinued starting 02/09/2025, 1 completed [facility] Comment on above: Lab max of 3 days, Daily, for lab use on ly until discontinued starting 02/09/2025, 1 completed Oxygen Therapy - Lucy ntain SpO2: 90%; *DRUM CLEANER Guidelines for O2: Yes; Document: \[email or web address]\[email or web address] \EPIC_Reference\Orders\Re spiratory Care Guidelines\CPG Oxygen 2022.pdf Oxygen Therapy - Maintain SpO2: 90%; *DRUM CLEANER Guidelines for O2: Yes; Document: \[email or web address]\e pic\EPIC_Reference\Ord ers\Respiratory Care Guidelines\CPG Oxygen 2022.pdf Respiratory Care Routine As Needed until discontinued starting 02/08/2025 [facility] Work Phone: Comment on above: As Needed until discontinued starting Patient referral [facility] Work Phone: Potassium [Moles/roverto e] in 24 hour [address] [facility] Progesterone Progesterone Lab Routine Hormone disorder Ordered: 01/16/2025 [facility] Comment on above: Ordered: 01/16/2025 Renal function 2000 panel - Serum or Plasma [facility] Sex hormone binding globulin Sex hormone binding globulin Lab Routine Hormone disorder Ordered: 01/16/2025 [facility] Comment on above: Ordered: 01/16/2025 T3, reverse T3, reverse Lab Routine Hormone disorder Ordered: 01/16/2025 [facility] Comment on above: Ordered: 01/16/2025 TESTOSTERONE, FREE TESTOSTERONE, FREE Lab Routine Hormone disorder Ordered: 01/16/2025 [facility] Comment on above: Ordered: 01/16/2025 Testosterone, free, total Testos terone, free, total Lab Routine Hormone disorder Ordered: 01/16/2025 [facility] Comment on above: Ordered: 01/16/2025 Thyroid peroxidase antibody Thyroid peroxidase antibody Lab Routine Hormone disorder Ordered: 01/16/2025 [facility] Comment on above: Ordered: 01/16/2025 Thyroxine (T4) free [Mass/volume] in Serum or Plasma T4, free Lab Routine Hormone disorder Ordered: 01/16/2025 [facility] Comment on above: Ordered: 01/16/2025 Triiodothyronine (T3 ) Free [Mass/volume] in Serum or Plasma T3, free Lab Routine Hormone disorder Ordered: 01/16/2025 [facility] Comment on above: Ordered: 01/16/2025 Vitamin D 1,25 dihydroxy Vitamin D 1,25 dihydroxy Lab Routine Hormone disorder Ordered: 01/16/2025 [facility] Comment on above: Ordered: 01/16/2025 [facility] Immunizations Immunization Date Immunization Notes Care Provider Curt ruby 12-07-2017 meningococcal polysaccharide (groups A, C, Y and W-135) diphtheria toxoid conjugate vaccine (MCV4P) Timmy Baljit DO Work Phone: [facility] 10-18-2017 KENALOG - 10 mg Kati Gupta Other [facility] Other 10-18-2017 Toradol per 15 mg Kati Velazco s Other [facility] Other 10-09-2017 KENALOG - 10 mg Kati Gupta Other [facility] Other 08-29-2013 hepatitis A vaccine, pediatric/adolescent dosage, 2 dose schedule Timmy Baljit DO Work Phone: [facility] 08-29-2013 human papilloma viru s vaccine, quadrivalent Timmy Baljit DO Work Phone: [facility] 02-21-2013 human papilloma viru s vaccine, quadrivalent Timmy Baljit DO Work Phone: [facility] 12-13-2012 hepatitis A vaccine, pediatric/adolescent dosage, 2 dose schedule Timmy Baljit DO Work Phone: [facility] 12-13-2012 human papilloma viru s vaccine, quadrivalent Timmy Baljit DO Work Phone: [facility] 04-04-2010 meningococcal polysaccharide (groups A, C, Y and W-135) diphtheria toxoid conjugate vaccine (MCV4P) Timmy Baljit DO Work Phone: [facility] 04-04-2010 tetanus toxoid, redu arianne diphtheria toxoid, and acellular pertussis vaccine, adsorbed Timmy Baljit DO Work Phone: [facility] 10-17-2002 diphtheria, tetanus toxoids and acellular pertussis vaccine, unspecified formulation Timmy Baljit DO Work Phone: [facility] 10-17-2002 measles, mumps and rubella virus vaccine Timmy Baljit DO Work Phone: [facility] 10-17-2002 poliovirus vaccine, inactivated Timmy Baljit DO Work Phone: [facility] 05-27-1999 diphtheria, tetanus toxoids and acellular pertussis vaccine, unspecified formulation Timmy Baljit DO Work Phone: [facility] 05-27-1999 haemophilus influenz ae type b vaccine, PRP-T conjugate Timmy Baljit DO Work Phone: [facility] 05-27-1999 measles, mumps and rubella virus vaccine Timmy Baljit DO Work Phone: [facility] 05-27-1999 trivalent poliovirus vaccine, live, oral Timmy Baljit DO Work Phone: [facility] 07-10-1998 diphtheria, tetanus toxoids and acellular pertussis vaccine, unspecified formulation Timmy Baljit DO Work Phone: [facility] 07-10-1998 haemophilus influenz ae type b conjugate and Hepatitis B vaccine Timmy Baljit DO Work Phone: [facility] 04-19-1998 diphtheria, tetanus toxoids and acellular pertussis vaccine, unspecified formulation Timmy Abljit DO Work Phone: [facility] 04-19-1998 haemophilus influenz ae type b vaccine, HbOC conjugate Timmy Baljit DO Work Phone: [facility] 04-19-1998 poliovirus vaccine, inactivated Timmy Baljit DO Work Phone: [facility] 02-11-1998 diphtheria, tetanus toxoids and acellular pertussis vaccine, unspecified formulation Timmy Baljit DO Work Phone: [facility] 02-11-1998 haemophilus influenz ae type b conjugate and Hepatitis B vaccine Timmy Baljit DO Work Phone: [facility] 02-11-1998 poliovirus vaccine, inactivated Timmy Baljit DO Work Phone: [facility] 1997 hepatitis B vaccine, pediatric or pediatric/adolescent dosage Timmy Baljit DO Work Phone: [facility] Payers Date Payer Category Payer Medicaid [id number] 2024 Self-pay [id number] 2024 Unknown [id number] 2024 Auto Insurance AUTO INSURANCE [id number]. [id number] 2023 Blue Cross Blue [facility] Managed Care - O 1.2.840.114766.1.13.424.2. 7.9.586920.505.315 2023 Medicaid (Managed Care) 1.2. [id number]. [id number] 2021 Unknown 2019 Medicaid 1.2.840.386943. 1.13.693.2. 7.3.920939.315 2019 Medicaid [place] MEDICAID 1.2.840.540923.1.13.424.2. [id number] 1997 Unknown [id number] 2.16.840.1.385471.3.579.2. 593 1997 Unknown [id number] 2.16.840.1.900927.3.579.2. 593 1997 Unknown [id number] 2.16.840.1.661626.3.579.2. 593 1997 Unknown [id number] 2.16840.1.564861.3.579.2. 593 1997 Unknown [id number] 2.16.840.1.149092.3.579.2. 593 1997 Unknown [id number] 2.16.840.1.644598.3.579.2. 593 1997 Unknown [id number] 2.16840.1.150973.3.579.2. 593 1997 Unknown [id number] 2.16840.1.647726.3.579.2. 593 1997 Unknown [id number] 2.16.840.1.199111.3.579.2. 593 1997 Unknown [id number] 2.16.840.1.072820.3.579.2. 593 1997 Unknown [id number] 2.16.840.1.675541.3.579.2. 593 1997 Unknown [id number] 2.16.840.1.879457.3.579.2. 593 1997 Unknown [id number] 2.16.840.1.597972.3.579.2. 593 1997 Unknown [id number] 2.16.840.1.268985.3.579.2. 593 1997 Unknown [id number] 2.16.840.1.403450.3.579.2. 593 1997 Unknown [id number] 2.16.840.1.742821.3.579.2. 593 1997 Unknown [id number] 2.16.840.1.332109.3.579.2. 593 1997 Unknown [id number] 2.16.840.1.764053.3.579.2. 356 1997 Unknown [id number] 2.16.840.1.144579.3.579.2. 356 1997 Unknown [id number] 2.16.840.1.245259.3.579.2. 356 1997 Unknown [id number] 2.16.840.1.044465.3.579.2. 356 1997 Unknown [id number] 2.16.840.1.055746.3.579.2. 732 1997 Unknown [id number] 2.16.840.1.403978.3.579.2. 727 1997 Unknown [id number] 2.16.840.1.426630.3.579.2. 727 1997 Unknown [id number] 2.16.840.1.566321.3.579.2. 727 1997 Unknown [id number] 2.16.840.1.005829.3.579.2. 1286 1997 Unknown [id number] 2.16.840.1.802903.3.579.2. 1286 1997 Unknown [id number] 2.16.840.1.133788.3.579.2. 1286 1997 Unknown [id number] 2.16.840.1.248316.3.579.2. 128 1997 Unknown [id number] 2.16.840.1.522004.3.579.2. 1285 1997 Unknown [id number] 2.16.840.1.215222.3.579.2. 128 1997 Unknown [id number] 2.16.840.1.698498.3.579.2. 128 1997 Unknown [id number] 2.16.840.1.654924.3.579.2. 128 1997 Unknown [id number] 2.16.840.1.980882.3.579.2. 1285 1997 Unknown [id number] 2.16.840.1.674627.3.579.2. 1285 1997 Unknown [id number] 2.16.840.1.858371.3.579.2. 1285 1997 Unknown [id number] 2.16.840.1.657580.3.579.2. 1285 1997 Unknown [id number] 2.16.840.1.373643.3.579.2. 128 1997 Unknown [id number] 2.16.840.1.843749.3.579.2. 128 1997 Unknown [id number] 2.16.840.1.767978.3.579.2. 1285 1997 Unknown [id number] 2.16.840.1.292045.3.579.2. 1285 1997 Unknown [id number] 2.16.840.1.933530.3.579.2. 1285 1997 Unknown [id number] 2.16.840.1.508126.3.579.2. 1285 1997 Unknown [id number] 2.16.840.1.305383.3.579.2. 1286 1997 Unknown [id number] 2.16.840.1.125967.3.579.2. 1285 1997 Unknown [id number] 2.16.840.1.220899.3.579.2. 1285 1997 Unknown [id number] 2.16.840.1.685436.3.579.2. 1285 1997 Unknown [id number] 2.16.840.1.102296.3.579.2. 1285 1997 Unknown [id number] 2.16.840.1.495765.3.579.2. 1258 1997 Unknown [id number] 2.16.840.1.628859.3.579.2. 1258 1997 Unknown [id number] 2.16840.1.240877.3.579.2. 1258 1997 Unknown [id number] 2.16840.1.955134.3.579.2. 1258 1997 Unknown [id number] 2.16.840.1.852660.3.579.2. 1258 1997 Unknown [id number] 2.16.840.1.746272.3.579.2. 1258 1997 Unknown [id number] 2.16840.1.750502.3.579.2. 1258 1997 Unknown [id number] 2.16.840.1.294246.3.579.2. 1258 1997 Unknown [id number] 2.16.840.1.752384.3.579.2. 1258 1997 Unknown [id number] 2.16.840.1.899788.3.579.2. 1258 1997 Unknown [id number] 2.16.840.1.248266.3.579.2. 1258 1997 Unknown [id number] 2.16.840.1.414470.3.579.2. 1259 1997 Unknown [id number] 2.16.840.1.405971.3.579.2. 1259 1997 Unknown [id number] 2.16.840.1.756871.3.579.2. 1259 1997 Unknown [id number] 2.16.840.1.357668.3.579.2. 1259 1997 Unknown [id number] 2.16.840.1.920881.3.579.2. 1259 1997 Unknown [id number] 2.16.840.1.485888.3.579.2. 1259 1997 Unknown [id number] 2.16.840.1.681520.3.579.2. 1259 1997 Unknown [id number] 2.16.840.1.829622.3.579.2. 9 1997 Unknown [id number] 2.16.840.1.216322.3.579.2. 727 1959 Self-pay [id number] 1959 Unknown [id number] 2.16.840.1.343557.19 Blue Cross Blue Shield 1.2.8 40.110352.1.13.693.2. 7.9.292037.218535.315 Unknown [id number] Medicaid [id number] Unknown Regular Auto/Medical [id number] Unknown [id number] 2.16.840.1.431602.3.579.2. 531 Social History Date Type Detail Facility Unknown if ever smoked [facility] Other Start: 01-20-2023 End: 12-28-2024 Sex Assigned At [facility] Other Start: 01-27-2023 End: 12-28-2024 Current smoker Current smoker [facility] Work Phone: Tobacco smoking stat us NHIS Tobacco smoking consumption unknown [facility] Work Phone: Start: 1995 Sex Assigned At Not on file [facility] Work Phone: Start: 01-27-2023 End: 02-22-2024 Tobacco smoking status NHIS Smokes tobacco daily [facility] End: 12-30-2022 History of tobacco use Cigarette Smoker [facility] Start: 01-27-2023 End: 02-22-2024 Tobacco use and exposure User of smokeless tobacco [facility] Start: 09-06-2023 End: 03-20-2025 Alcohol intake [...] Comment Caffeine intake: 2-3 cups per day [facility] Start: 05-13-2021 End: 12-04-2024 Tobacco smoking status NHIS Smoker (finding) [facility] Start: 1995 Sex Assigned At Female [facility] Start: 10-13-2023 End: 02-08-2025 Tobacco use and exposure Smokeless tobacco non-user [facility] Start: 10-13-2023 End: 02-13-2025 Alcohol intake Ex-drinker (finding) [facility] Start: 03-12-2015 End: 12-04-2024 Sex Female (finding) [facility] Has the electric, ga s, oil, or water company threatened to shut off services in your home in past 12Mo No [facility] Start: 01-03-2025 Tobacco smoking status Heavy tobacco smoker (finding) [facility] Sexual Orientation [facility] Are you now , , , , never or living with a partner? [facility] Do you feel stress - tense, restless, nervous, or anxious, or unable to sleep at night because your mind is troubled all the time - these days [OSQ] Not at all [facility] Start: 02-08-2025 Tobacco Comment Has been smoking since age 19 [facility] Goals Date Patient Goal Desired Activity /State Personal health goal Comment on above: Formatting of this n ote might be different from the original. Evaluation of progress towards goal: Pt will be open to safe discharge recs. Functional Status Date Assessment Result Facility 12-14-2024 Patient Health Quest ionnaire 2 item (PHQ-2) [Reported] [facility] 11-23-2024 Patient Health Quest ionnaire 2 item (PHQ-2) [Reported] [facility] Mental Status Date Assessment Result Facility [facility] Clinical Notes 05-06-2021 to 03-20-2025 Timmy Smiley, - 03/20/2025 2:20 PM EDTTelephone Encounter - [...] with Dr. Smiley at [facility]. MEDICATIONS Current Outpatient Medications Medication Instructions albuterol (ProAir RespiClick) 90 mcg/act breath-activated inhaler 1 puff, Inhalation, Every 4 hours PRN ALPRAZolam (XANAX) 0.5 mg, Oral, 2 times daily ARIPiprazole (ABILIFY) 10 mg, Oral, Daily ergocalciferol (VITAMIN D-2) 1.25 mg, Oral, Weekly Lodkvthmssp-Xerttnvvr-Wcncoo (Trelegy Ellipta) 100-62.5-25 MCG/ACT aerosol powder 1 [...] in full remission, most recent episode manic ([facility]) 01/19/2023 Manic episode, unspecified ([facility]) 01/19/2023 Excessive and frequent menstruation 01/19/2023 Menorrhagia 01/19/2023 Hypertrophy of nasal turbinates 01/19/2023 Nasal obstruction 01/19/2023 Urinary tract infection without hematuria 01/19/2023 PTSD (post-traumatic stress disorder) 01/20/2023 Abdominal pain 01/18/2024 Bipolar II disorder ([facility]) 10/18/2020 Diarrhea 01/18/2024 Family history of Crohn's [...] healing 12/14/2024 Liver injury, laceration 12/14/2024 Ileus (HCC) 12/14/2024 Abnormal peritoneal fluid 12/14/2024 Left hand pain 12/28/2024 Injury of left hand 12/28/2024 Drug-induced constipation 12/28/2024 Hypoglycemia 12/28/2024 Irregular heart rhythm 12/29/2024 Slow transit constipation 02/15/2025 Hypokalemia 02/15/2025 Primary hypertension 02/15/2025 Renal atrophy, right 02/15/2025 Resolved Ambulatory Problems Diagnosis Date Noted Irregular heart rate ([facility]) 12/28/2024 Past Medical History: Diagnosis Date Acute pelvic pain, female Anxiety Asthma (HCC) COVID-2019 Current smoker Disease of thyroid gland DNS (deviated nasal septum) Generalized anxiety disorder Herpes genitalia Hypertrophy of both inferior nasal turbinates Irregular menstruation Kidney damage Postop check ([facility]) Psoriasis Rhinorrhea Screen for STD (sexually transmitted [...] Kidney damage Menorrhagia Nasal obstruction Postop check ([facility]) Psoriasis scalp Rhinorrhea Screen for STD (sexually [...] 01/18/2025 CT ANGIOGRAM TAVR 01/18/2025 CYST REMOVAL 2010 x2 ENDOMETRIAL ABLATION 02/2022 HYSTERECTOMY 07/27/2022 with [...] nursing note reviewed. Exam conducted with a manager restaurant present. Vitals: Estimated body mass index is [...] reviewed, and patient is to proceed to [facility] OR. Follow Up: Patient is to follow up between 1-2 weeks post operative to assess proper healing and recovery from procedure. Documented by Minoo Andino LPN on behalf of: Timmy Smiley DO documented in this encounter [facility] 03-20-2025 Note [place] Electrophysiology Consult Note [place] [facility] Reason for visit: HPI: Misty Elliott [...] Tobacco Use: High Risk (02/15/2025) Received from [facility] Patient History Smoking Tobacco Use: Every Day Smokeless Tobacco Use: Current Passive Exposure: Not on file Alcohol Use: Not At Risk (01/20/2023) Received from [facility] AUDIT-C Frequency of Alcohol Consumption: Never Average Number of Drinks: Patient does not drink Frequency of Binge Drinking: Never Financial Resource Strain: Low Risk (02/08/2025) [facility] Overall Financial Resource Strain (CARDIA) Difficulty of Paying Living Expenses: Not hard at all Food Insecurity: No Food Insecurity (02/13/2025) Received from [facility] Hunger Screening Within the past 12 months we worried whether our food would run out before we got money to buy more.: Never True Within the past 12 months the food we bought just didn't last and we didn't have money to get more.: Never True Transportation Needs: No Transportation Needs (02/08/2025) [facility] [facility] - Transportation Lack of Transportation (Medical): No Lack of Transportation (Non-Medical): No Physical Activity: Insufficiently Active (02/08/2025) Received from [facility] Exercise Vital Sign Days of Exercise per Week: 2 days Minutes of Exercise per Session: 20 min Stress: No Stress Concern Present (02/08/2025) Received from [facility] [employer] - Occupational Stress Questionnaire Feeling of Stress : Not at all Social Connections: Moderately Integrated (02/08/2025) Received from [facility] Social Connection and Isolation Panel [NHANES] Frequency of Communication with Friends and Family: More than three times a week Frequency of Social Gatherings with Friends and Family: Three times a week Attends Catholic Services: More than 4 times per year Active Member of Clubs or Organizations: No Attends Club or Organization Meetings: Never Marital Status: Intimate Partner Violence: Unknown (10/01/2023) [place] Safety & Environment Fear of Current or Ex-Partner: Not on file Emotionally Abused: Not on file Physically Abused: Not on file Sexually Abused: Not on file Physically or Sexually Abused: Not on file Depression: Not at risk (02/08/2025) Received from [facility] PHQ-2 Total Score: 0 Housing Stability: Low Risk (02/08/2025) Received from [facility] Housing Instability Are you worried or concerned that in the next two months you may not have stable housing that you own, rent or stay in as a part of a household?: No Utilities: Not At Risk (02/08/2025) Received from [facility] Utilities Threatened with loss of utilities: No [...] fraction of 65-70%. (more content not included)... [facility] 03-12-2025 Telephone encounter Note Would like to know of autoimmune tests came back please and thank you! [facility] 03-12-2025 Miscellaneous Notes Would like to know of autoimmune tests came back please and thank you! Pt would like lab read please. Thank you! documented in this encounter [facility] 03-08-2025 Telephone encounter Note Pt would like lab read please. Thank you! [facility] 02-26-2025 Miscellaneous Notes Unable to reach patient, the phone rings and stopped. I tried a couple of times, but was unsuccessful documented in this encounter [facility] 02-26-2025 Telephone encounter Note Unable to reach patient, the phone rings and stopped. I tried a couple of times, but was unsuccessful [facility] 02-19-2025 History of Present illness Narrative Msity Elliott is a 29 y.o. female Fabian Cochran MD presents with chief complaint of Adrenal Problem (New REF/LAB) HPI: History of Present Illness The patient is a new patient referred by Dr. Fabian Cochran, a android developer, for hypokalemia. She was admitted early this [...] ergocalciferol (VITAMIN D-2) 1.25 mg, Oral, Weekly Ecpcgjwjdad-Ebwwrdxwo-Qmskaj (Trelegy Ellipta) 100-62.5-25 MCG/ACT aerosol powder 1 [...] 01/18/2025 CT ANGIOGRAM TAVR 01/18/2025 CYST REMOVAL 2010 x2 ENDOMETRIAL ABLATION 02/2022 HYSTERECTOMY 07/27/2022 with [...] in 3 months. documented in this encounter [facility] 02-15-2025 History of Present illness Narrative Associated Problem(s): Renal atrophy, right No previous symptoms of hypertension, Hypokalemia or Constipation prior to the accident. High suspicion the forceful trauma may vave injured the [place] and the adrenal gland affecting organs contributing to also weight loss. Associated Problem(s): Primary hypertension Will see Chain Link Fence Installer, referred by Dr. Vallecillo Must Rule out Primary Hyperaldosteronism Associated Problem(s): Slow transit constipation [place] has not yet been picked up She had some results with a partial enema She needs GI evaluation for Possible motility disorder Images from the original note were not included. HPI Follow-up Additional comments: Recent hospital visits: admitted 02/09/24 to [facility] dx: HTN,hypokalemia discharged home 02/09/25 rx's for potassium and lisinopril given 02/13/25 [facility] ER for constipation pt was discharged home advised to do fleets enema Last edited by Tiffany Neri LPN on 02/15/2025 2:39 PM. Subjective Patient ID: Anabel Jang is a 29 y.o. female who presents for Follow-up (Recent hospital visits: admitted 02/09/24 to [facility] dx: HTN,hypokalemia discharged home 02/09/25 rx's for potassium and lisinopril given/02/13/25 [facility] ER for constipation pt was discharged home advised to do fleets enema). Flowsheet Row Documentation from 02/12/2025 in [facility] with Hemalatha Riley MA Hospital Information ED, Hospital or Longterm Facility Discharge? ED Patient has been contacted within 2 days of being seen in the ED Yes Diagnosis uncontrolled hypertension, hypkalemia Discharge Date 02/08/25 Discharged To: Home Setting Discharge Hospital [facility] Engagement Call Start Time 1451 Admission Date [...] relief from that She is going to grape picker linzess at pharmacy today Current Outpatient [...] mouth Daily ergocalciferol (Vitamin D-2) 1.25 MG (21338 UT) capsule Take 1 capsule (1.25 mg) by mouth 1 (one) time per week 12 capsule 3 Fmgsgkqkfcg-Zwhhnlwdp-Zdwtvz (Trelegy Ellipta) 100-62.5-25 MCG/ACT aerosol powder Inhale [...] Onset Diabetes Mother Marhelena Cervical cancer Mother Hazel Heart disease Father Mental illness Father Down [...] Kidney damage Menorrhagia Nasal obstruction Postop check ([facility]) Psoriasis scalp Rhinorrhea Screen for STD (sexually [...] Comprehensive metabolic panel Primary hypertension Will see Chain Link Fence Installer, referred by Dr. Vallecillo Must Rule out [...] 03/15/2025) for Hypertension. documented in this encounter [facility] 02-12-2025 History of Present illness Narrative [...] healing 12/14/2024 Liver injury, laceration 12/14/2024 Ileus ([facility]) 12/14/2024 Abnormal peritoneal fluid 12/14/2024 Left hand pain 12/28/2024 Injury of left hand 12/28/2024 Drug-induced constipation 12/28/2024 Hypoglycemia 12/28/2024 Irregular heart rhythm 12/29/2024 Resolved Ambulatory Problems Diagnosis Date Noted Irregular heart rate ([facility]) 12/28/2024 Past Medical History: Diagnosis Date Acute pelvic pain, female Anxiety Asthma ([facility]) COVID-19 2020 Current smoker Disease of thyroid gland DNS (deviated nasal septum) Generalized anxiety disorder Herpes genitalia Hypertrophy of both inferior nasal turbinates Irregular menstruation Kidney damage Postop check ([facility]) Psoriasis Rhinorrhea Screen for STD (sexually transmitted [...] 01/18/2025 CT ANGIOGRAM TAVR 01/18/2025 CYST REMOVAL 2010 x2 ENDOMETRIAL ABLATION 02/2022 HYSTERECTOMY 07/27/2022 with [...] later date, pts labs reviewed, pt seeing android developer and electrical accessories assembler dt hypokalemia and high bp, pt to notify office after specialist are seen Documented by Timmy Smiley DO on behalf of: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 mass index is [...] of: Timmy Smiley DO documented in this [facility]03-10-2025 Telephone encounter Note* Telephone Encounter - HOA CONTRERAS - 10/16/2024 1:08 PM EDT She has been feeling tired, and over all just run down. [facility] [id number] Miscellaneous Notes* Telephone Encounter - HOA CONTRERAS - 10/16/2024 1:08 PM EDT She has been feeling tired, and over all just run down. * Telephone Encounter - HOA CONTRERAS - 10/16/2024 10:25 AM EDT Patient called asking for labs to be done on her Iron, vitamin D and Vitamin B. And any other labs that need to be done. documented in this [facility]03-10-2025 Telephone encounter Note* Telephone Encounter - HOA CONTRERAS - 10/16/2024 10:25 AM EDT Patient called asking for labs to be done on her Iron, vitamin D and Vitamin B. And any other labs that need to be done. [facility] HospitalOaqspisvaj36-52-3846 History of Present illness Narrative* Tee Blancas [...] at the same time 90 tablet 3 Spekdpfjmis-Nelvpomgj-Hhdjlr (Trelegy Ellipta) 100-62.5-25 MCG/ACT aerosol powder Inhale [...] (Abilify) 5 MG tablet Bipolar II disorder (CMS/HCC) Relevant Medications ARIPiprazole (Abilify) 5 MG [...] No follow-ups on file. documented in this encounterColumbia Regional [id number] Telephone encounter Note* Telephone Encounter - DENISSE Romero - 09/23/2024 11:10 AM EST Trelegy sent. [facility] [id number] Miscellaneous Notes* Telephone Encounter - DENISSE Romero - 09/23/2024 11:10 AM EST Omar sent. documented in this encounterColumbia Regional [id number] History of Present illness Narrative* DENISSE Romero - 08/31/2024 11:00 AM EST Images from the original note were not included. [facility] Refill Additional comments: Lexapro, Valcyclovir Last [...] at the same time 100 tablet 2 Tlhowsjlvun-Alsqilzxw-Sdkiyh (Trelegy Ellipta) 100-62.5-25 MCG/ACT aerosol powder Inhale [...] Relation Name Age of Onset Diabetes Mother Hazel Cervical cancer Mother Hazel Heart disease Father Mental illness Father Down [...] for Medication Follow Up. documented in this encounterColumbia Regional [id number] Telephone encounter Note* Telephone Encounter - Ailyn [...] like meds just until she sees you [facility] [id number] Miscellaneous Notes* Telephone Encounter - Ailyn Quinn [...] until she sees you documented in this [facility]01-06-2025 History of Present illness Narrative* Priyanka Solomon LPN - 08/14/2024 3:00 PM EST Reason for Appointment: Patient ID: Anabel Jang is a 28 y.o. female who presents for [facility] Women Visit Patient presents today for Annual Exam. MEDICATIONS Current Outpatient Medications Medication Instructions albuterol (ProAir RespiClick) 90 mcg/act breath-activated inhaler 1 puff, Inhalation, Every 4 hoursPRN ARIPiprazole (Abilify) 5 MG tablet TAKE 1 TABLET(5 MG) BY MOUTH IN THE MORNING escitalopram (LEXAPRO) 20 mg, Oral, Every 24 hours Sssxcspatvf-Xbjxqkgbk-Irfaee (Trelegy Ellipta) 100-62.5-25 MCG/ACT aerosol powder 1 [...] Ambulatory Problems Diagnosis Date Noted Acute asthma ([facility]) 01/19/2023 Chronic tonsillitis 01/19/2023 Smoker 01/19/2023 Depression ([facility]) 01/19/2023 Deviated nasal septum 01/19/2023 Endometriosis 01/19/2023 Chronic neck pain 01/19/2023 Fibromyalgia 01/19/2023 Generalized anxiety disorder ([facility]) 01/19/2023 Herpes simplex of female genitalia 01/19/2023 History of hysterectomy 01/19/2023 Hypothyroidism ([facility]) 01/19/2023 Irregular periods 01/19/2023 Irritable bowel syndrome 01/19/2023 Bipolar disorder, in full remission, most recent episode manic ([facility]) 01/19/2023 Manic episode, unspecified ([facility]) 01/19/2023 Excessive and frequent menstruation 01/19/2023 Menorrhagia 01/19/2023 Hypertrophy of nasal turbinates 01/19/2023 Nasal obstruction 01/19/2023 Urinary tract infection without hematuria 01/19/2023 Posttraumatic stress disorder ([facility]) 01/20/2023 Abdominal pain 01/18/2024 Bipolar II disorder ([facility]) 10/18/2020 Diarrhea 01/18/2024 Family history of Crohn's [...] Onset Diabetes Mother Mardel Cervical cancer Mother Marhelena Heart disease Father [...] nursing note reviewed. Exam conducted with a manager restaurant present. Vitals: Estimated body mass index is 28.01 kg/m as calculated from the following: Height as of 24: 5'. Weight as of this encounter: 143 [...] of: Timmy Smiley DO documented in this encounterColumbia Regional [id number] History of Present illness Narrative* Tee Blancas MD - 05/22/2024 3:13 PM EDTAssociated Problem(s): Smoker Discussed smoking cessation with the patient. Encouraged patient to try to cut back gradually and soon quit smoking. Discussed ways to quit smoking including gum, patches, medication, and gradually reducing the number of cigarettes smoked daily. Discussed potential health risks of terminal operations manager smoking. Patient voiced understanding. Benefits of cessation, [...] List Items Addressed This Visit Acute asthma (CMS/HCC) - Primary Relevant Medications albuterol (ProAir RespiClick) 90 mcg/act breath-activated inhaler Bpabpdqezdc-Sapccmncz-Snyiyx (Trelegy Ellipta) 100-62.5-25 MCG/ACT aerosol powder Smoker Discussed smoking cessation with the patient. Encouraged patient to try to cut back gradually and soon quit smoking. Discussed ways to quit smoking including gum, patches, medication, and gradually reducing the number of cigarettes smoked daily. Discussed potential health risks of prison smoking. Patient voiced understanding. Benefits of cessation, both health and financial, were reviewed. No follow-ups on file. documented in this encounterColumbia Regional [id number] Miscellaneous Notes* Telephone Encounter - Caty Tillman MD - 10/29/2023 12:24 PM EDT I left a message for Anabel to call. She has a normal bleeding workup. Caty Tillman M.D.,Ph.D. Director, Pediatric Hematology Oncology [facility] Previously [facility] Director, [facility] Hemophilia Elizabeth documented in this encounterCincinnati Children's Hospital Medical CenterAeroScout [id number] Telephone encounter Note* Telephone Encounter - Caty Tillman MD - 10/29/2023 12:24 PM EDT I left a message for Anabel to call. She has a normal bleeding workup. Caty Tillman M.D.,Ph.D. Director, Pediatric Hematology Oncology [facility] Previously [facility] Director, [facility] Hemophilia Elizabeth [facility] Work Phone: 1(993) 982-169003-07-2024 Miscellaneous Notes* Telephone Encounter - Sarah Vinson RN - 10/14/2023 4:01 PM EST VM left by patient to ask about results. Called back and left VM that we have not received results and we will call her when we do. documented in this encounterLouis [facility]24 Telephone encounter Note* Telephone Encounter - Sarah Vinson RN - 10/14/2023 4:01 PM EST VM left by patient to ask about results. Called back and left VM that we have not received results and we will call her when we do. [facility]03-06-2024 History of Present illness Narrative* Nai Dsouza [...] note were not included. PATIENT CONSULT NOTE: [facility] [address] [place] [address] Fidel: [phone] DATE OF VISIT: 10/13/2023 10:20 AM RE: Anabel [place] : 1995 HISTORY OF PRESENT ILLNESS: Anabel [...] Menorrhagia-yes (in the past) Increased bleeding with llnipquydnaq-blsqmdmrsiurtexh-oz Allergies Allergen Reactions Flagyl [Metronidazole] ` Methylprednisolone [...] Dose: 800 mg Signed by: Dr. Aniceto Wright, DO 800 mg, oral, 3 times daily [...] Cofactor, FVIII Assay, type III vWF-collagen binding, RS8eX-lHM activity, Fibrinogen, thrombin time and PF100, platelets [...] please do not hesitate to contact the [facility] at [phone]. Sincerely, SIGNATURES: Caty Tillman M.D.,Ph.D. Director, [facility] Director, Pediatric Hematology Oncology [phone] documented in this encounterBrightlook HospitalBlue Nile01-29-2024 History of Present illness Narrative* Priyanka Juanito, KYAW - 09/06/2023 3:10 PM EST Reason for Appointment: Patient ID: Misty Elliott is a 27 y.o. female who presents for Wound Check Patient presents today for Consult appointment. Current Medications: has a current medication list which includes the following prescription(s): aripiprazole, lamotrigine, prazosin, abilify, proair respiclick, cephalexin, escitalopram, ibuprofen, and pregabalin. Medical History: Active Ambulatory Problems Diagnosis Date Noted Acute asthma ([facility]) 01/19/2023 Chronic tonsillitis 01/19/2023 Current smoker 01/19/2023 Depression ([facility]) 01/19/2023 Deviated nasal septum 01/19/2023 Endometriosis 01/19/2023 Chronic neck pain 01/19/2023 Fibromyalgia 01/19/2023 Generalized anxiety disorder (CMS/HCC) 01/19/2023 Herpes simplex of female genitalia 01/19/2023 History of hysterectomy 01/19/2023 Hypothyroidism (CMS/HCC) 01/19/2023 Irregular periods 01/19/2023 Irritable bowel syndrome 01/19/2023 Manic bipolar I disorder in full remission ([facility]) 01/19/2023 Manic disorder, single episode ([facility]) 01/19/2023 Excessive and frequent menstruation 01/19/2023 Menorrhagia 01/19/2023 Hypertrophy of nasal turbinates 01/19/2023 Nasal obstruction 01/19/2023 Urinary tract infection without hematuria 01/19/2023 Posttraumatic stress disorder (CMS/HCC) 01/20/2023 Resolved Ambulatory Problems Diagnosis Date Noted No Resolved Ambulatory Problems Past Medical History: Diagnosis Date Acute pelvic pain, female Anxiety Asthma (CMS/HCC) COVID-19 2020 Disease of thyroid gland (CMS/HCC) DNS (deviated nasal septum) Herpes genitalia Hypertrophy of both inferior nasal turbinates Irregular menstruation Postop check Psoriasis ([facility]) Rhinorrhea Screen for STD (sexually transmitted disease) [...] nursing note reviewed. Exam conducted with a manager restaurant present. Vitals: Estimated body mass index is [...] of: Timmy Smiley DO documented in this encounterColumbia Regional [id number] NotePROCEDURE DETAILS Preoperative Diagnosis: Nasal obstruction inferior turbinate hypertrophy Deviated nasal septum Nasal valve stenosis Postoperative Diagnosis: Nasal obstruction inferior turbinate hypertrophy Deviated nasal septum Nasal valve stenosis Surgeon: Dr. Dash Resident/Fellow/Other Process Machine Operator: Dr. Toledo Procedure: Septorhinoplasty Anesthesia: general Estimated [...] Completion Last Updated: 25-Dec-2022 20:36 by Mateo Dash)[facility]05-18-2023 Miscellaneous Notes* Op Note - [place] Conversion - 12/24/2022 11:33 AM EDT PROCEDURE DETAILS Preoperative Diagnosis: Nasal obstruction inferior turbinate hypertrophy Deviated nasal septum Nasal valve stenosis Postoperative Diagnosis: Nasal obstruction inferior turbinate hypertrophy Deviated nasal septum Nasal valve stenosis Surgeon: Dr. Dash Resident/Fellow/Other Process Machine Operator: Dr. Toledo Procedure: Septorhinoplasty Anesthesia: general Estimated [...] 20:36 by Mateo Dash) documented in this [facility] Work Phone: 1(845) 789-191005-18-2023 Note* Op Note - [place] Conversion - 12/24/2022 11:33 AM EDT PROCEDURE DETAILS Preoperative Diagnosis: Nasal obstruction inferior turbinate hypertrophy Deviated nasal septum Nasal valve stenosis Postoperative Diagnosis: Nasal obstruction inferior turbinate hypertrophy Deviated nasal septum Nasal valve stenosis Surgeon: Dr. Dash Resident/Fellow/Other Process Machine Operator: Dr. Toledo Procedure: Septorhinoplasty Anesthesia: general Estimated [...] Last Updated: 25-Dec-2022 20:36 by Mateo Dash) [facility] Work Phone: [phone] NoteHistory & Physical Reviewed: /Lactating: Are You [...] the note. I personally evaluated the patient [id number] Electronic Signatures: Mateo Dash) (Signed 24-Dec-2022 10:47) Authored: Note Completion Co-Signer: History & Physical Reviewed, ERAS, Consent, Note Completion Marco Antonio Toledo ( (Resident)) (Signed 23-Dec-2022 20:10) Authored: History & Physical Reviewed, ERAS, Consent, Note Completion Last Updated: 24-Dec-2022 10:47 by Mateo Dash)[facility]05-18-2023 History and physical note* [place] Conversion - 12/24/2022 5:09 AM EDT History [...] Last Updated: 24-Dec-2022 10:47 by Mateo Dash) [facility]05-18-2023 History and physical note* [place] Conversion - 12/24/2022 5:09 AM EDT History [...] Last Updated: 24-Dec-2022 10:47 by Mateo Dash) documented in this [facility] Work Phone: [phone] NoteOPERATIVE NOTE OPERATION DATE: 07/27/2022 PROCEDURE: vNOTES hysterectomy with cystoscopy. PREOPERATIVE DIAGNOSIS: 1. Pelvic pain. 2. Endometriosis. 3. Intermittent bleeding. 4. Dyspareunia. 5. Dysmenorrhea. POSTOPERATIVE DIAGNOSIS: 1. Pelvic pain. 2. Endometriosis. 3. Intermittent bleeding. 4. Dyspareunia. 5. Dysmenorrhea. ANESTHESIA: General. SURGEON: Timmy Smiley D.O. FARM EQUIPMENT MECHANIC APPRENTICE: ZEENAT Marc URINE OUTPUT: Yellow and clear. [...] and instruments counts correct x2.[facility] [id number] NoteOPERATIVE NOTE OPERATION DATE: 02/26/2022 PROCEDURE: Bebe endometrial ablation with cystoscopy. PREOPERATIVE DIAGNOSIS: Menorrhagia, dysmenorrhea. POSTOPERATIVE DIAGNOSIS: Menorrhagia, dysmenorrhea. ANESTHESIA: General. SURGEON: Timmy Smiley D.O. FARM EQUIPMENT MECHANIC APPRENTICE: None. BLOOD LOSS: 5 mL. URINE OUTPUT: [...] Patient taken to recovery in stable condition. [facility] Signed and Approved by: DR TIMMY SMILEY . 02/27/2022 08:14:00[facility]05-26-2022 Evaluation note* Encounter Date Diagnosis Assessment Notes Treatment Notes Treatment Clinical Notes December, Diarrhea (ICD-10 - R19.7) [facility] Other 09-28-2021 Evaluation note* Encounter Date Diagnosis Assessment Notes Treatment Notes Treatment Clinical Notes Apr, COVID-19 (ICD-10 - U07.1) Apr, Other viral enteritis (ICD-10 - A08.39) Apr, Loss of appetite (ICD-10 - R63.0) Apr, Nausea (ICD-10 - R11.0) CONTINUE CARAFATE QID EGD [facility] Other Evaluation noteNo InformationNort Jianjian Other Evaluation note* Diagnosis Deviated nasal septum Hypertrophy of nasal turbinates Other specified disorders of nose and nasal sinuses Unspecified asthma, uncomplicated Anxiety disorder, unspecified Depression, unspecified Gastro-esophageal reflux disease without esophagitis Nicotine dependence, unspecified, uncomplicated documented in this encounter [facility] Work Phone: Evaluation note* Diagnosis Incisional irritation, initial encounter S/P laparoscopic surgery Other postprocedural status Wound infection following procedure Yeast infection documented in this encounter [facility] HealthcareEvaluation noteNo assessment information availableDayton Osteopathic Hospital Work Phone: Evaluation note* Diagnosis Generalized anxiety [...] in full remission, most recent episode manic ([facility]) Manic episode, unspecified ([facility]/HCC) Bipolar II disorder (CMS/HCC) Other bipolar disorders Acute asthma ([facility]/HCC)- Primary Unspecified asthma Smoker Tobacco use disorder Well woman exam with routine gynecological exam Routine gynecological examination documented in this encounter [facility] HealthcareEvaluation note* Diagnosis Generalized anxiety disorder (CMS/HCC)- Primary Generalized anxiety disorder Fibromyalgia Unspecified myalgia and myositis Benign neoplasm of occipital lymph node Generalized anxiety disorder (CMS/HCC)- Primary Generalized anxiety disorder Bipolar disorder, in full remission, most recent episode manic ([facility]/HCC) Manic episode, unspecified ([facility]) Bipolar II disorder ([facility]/HCC) Other bipolar disorders Acute asthma ([facility]/HCC)- Primary Unspecified asthma Smoker Tobacco use disorder [...] disorder (CMS/HCC) Other bipolar disorders Acute asthma ([facility])- Primary Unspecified asthma Smoker Tobacco use disorder Insomnia due to other mental disorder- Primary H/O cold sores Generalized anxiety disorder ([facility]/HCC) Generalized anxiety disorder Grief reaction ([facility]) Adjustment disorder with depressed mood documented in this encounter [facility] HealthcareEvaluation note* Diagnosis Generalized anxiety disorder (CMS/HCC)- Primary Generalized anxiety disorder Fibromyalgia Unspecified myalgia and myositis Benign neoplasm of occipital lymph node Generalized anxiety disorder (CMS/HCC)- Primary Generalized anxiety disorder Bipolar disorder, in full remission, most recent episode manic ([facility]) Manic episode, unspecified ([facility]CC) Bipolar II disorder ([facility]) Other bipolar disorders Acute asthma ([facility])- Primary Unspecified asthma Smoker Tobacco use disorder Grief reaction ([facility] Adjustment disorder with depressed mood PTSD (post-traumatic stress disorder) ([facility]) Posttraumatic stress disorder Generalized anxiety disorder with panic attacks ([facility]) Grief counseling documented in this encounter [facility] HealthcareEvaluation note* Diagnosis Generalized anxiety disorder (CMS/HCC)- Primary Generalized anxiety disorder Fibromyalgia Unspecified myalgia and myositis Benign neoplasm of occipital lymph node Generalized anxiety disorder ([facility]/HCC)- Primary Generalized anxiety disorder Bipolar disorder, in full remission, most recent episode manic ([facility]) Manic episode, unspecified ([facility]) Bipolar II disorder ([facility] Other bipolar disorders Acute asthma ([facility])- Primary Unspecified asthma Smoker Tobacco use disorder Acute asthma ([facility]) Unspecified asthma documented in this encounter [facility] [...] in full remission, most recent episode manic ([facility]) Manic episode, unspecified ([facility]/HCC) Bipolar II disorder ([facility]) Other bipolar disorders Acute asthma ([facility])- Primary Unspecified asthma Smoker Tobacco use disorder Generalized anxiety disorder ([facility]) Generalized anxiety disorder documented in this encounter [facility] HealthcareEvaluation note* Diagnosis Generalized anxiety disorder (CMS/HCC)- Primary Generalized anxiety disorder Fibromyalgia Unspecified myalgia and myositis Benign neoplasm of occipital lymph node Generalized anxiety disorder (CMS/HCC)- Primary Generalized anxiety disorder Bipolar disorder, in full remission, most recent episode manic (CMS/HCC) Manic episode, unspecified (CMS/HCC) Bipolar II disorder (CMS/HCC) Other bipolar disorders Acute asthma ([facility]/HCC)- Primary Unspecified asthma Smoker Tobacco use disorder Allergic reaction, subsequent encounter- Primary Bipolar disorder, in full remission, most recent episode manic ([facility]) Manic episode, unspecified ([facility]) Bipolar II disorder ([facility]) Other bipolar disorders documented in this encounter [facility] HealthcareEvaluation note* Diagnosis Generalized anxiety disorder (CMS/HCC)- Primary Generalized anxiety disorder Fibromyalgia Unspecified myalgia and myositis Benign neoplasm of occipital lymph node Generalized anxiety disorder (CMS/HCC)- Primary Generalized anxiety disorder Bipolar disorder, in full remission, most recent episode manic ([facility]) Manic episode, unspecified ([facility]) Bipolar II disorder ([facility]) Other bipolar disorders Acute asthma ([facility])- Primary Unspecified asthma Smoker Tobacco use disorder PTSD (post-traumatic stress disorder) ([facility]) Posttraumatic stress disorder Generalized anxiety disorder with panic attacks ([facility]) Grief counseling History of non-suicidal self-harm Allergic reaction, subsequent encounter- Primary Bipolar disorder, in full remission, most recent episode manic ([facility]) Manic episode, unspecified ([facility]) Bipolar II disorder ([facility]) Other bipolar disorders documented in this encounter [facility]Evaluation note* Diagnosis Generalized anxiety disorder (CMS/HCC)- Primary Generalized anxiety disorder Fibromyalgia Unspecified myalgia and myositis Benign neoplasm of occipital lymph node Generalized anxiety disorder (CMS/HCC)- Primary Generalized anxiety disorder Bipolar disorder, in full remission, most recent episode manic ([facility]) Manic episode, unspecified ([facility]) Bipolar II disorder ([facility]) Other bipolar disorders Acute asthma ([facility])- Primary Unspecified asthma Smoker Tobacco use disorder Allergic reaction, subsequent encounter- Primary Bipolar disorder, in full remission, most recent episode manic ([facility]) Manic episode, unspecified ([facility]) Bipolar II disorder ([facility]) Other bipolar disorders Fibromyalgia Unspecified myalgia and myositis documented in this encounter [facility]Evaluation note* Diagnosis Generalized anxiety disorder (CMS/HCC)- Primary Generalized anxiety disorder Fibromyalgia Unspecified myalgia and myositis Benign neoplasm of occipital lymph node Generalized anxiety disorder (CMS/HCC)- Primary Generalized anxiety disorder Bipolar disorder, in full remission, most recent episode manic ([facility]) Manic episode, unspecified ([facility]) Bipolar II disorder ([facility] [facility] [place] Other bipolar disorders Acute asthma ([facility] [place] Primary Unspecified asthma Smoker Tobacco use disorder Allergic reaction, subsequent encounter- Primary Bipolar disorder, in full remission, most recent episode manic ([facility] [place]) Manic episode, unspecified ([facility] [place]) Bipolar II disorder ([facility] [place]) Other bipolar disorders PTSD (post-traumatic stress disorder) ([facility] [place]) Posttraumatic stress disorder Generalized anxiety disorder with panic attacks ([facility] [place]) Grief counseling History of non-suicidal self-harm documented in this encounter [facility]* Diagnosis Generalized anxiety disorder (CMS/HCC)- Primary Generalized anxiety disorder Fibromyalgia Unspecified myalgia and myositis Benign neoplasm of occipital lymph node Generalized anxiety disorder ([facility]/HCC)- Primary Generalized anxiety disorder Bipolar disorder, in full remission, most recent episode manic ([facility] [place]) Manic episode, unspecified ([facility] [place]) Bipolar II disorder ([facility] [place] Other bipolar disorders Acute asthma ([facility] [place])- Primary Unspecified asthma Smoker Tobacco use disorder Allergic reaction, subsequent encounter- Primary Bipolar disorder, in full remission, most recent episode manic ([facility] [place]) Manic episode, unspecified ([facility] [place]) Bipolar II disorder ([facility] [place]) Other bipolar disorders Generalized anxiety disorder ([facility] [place]) Generalized anxiety disorder documented in this encounter [facility]* Diagnosis Generalized anxiety disorder (CMS/HCC)- Primary Generalized anxiety disorder Fibromyalgia Unspecified myalgia and myositis Benign neoplasm of occipital lymph node Generalized anxiety disorder ([facility]/HCC)- Primary Generalized anxiety disorder Bipolar disorder, in full remission, most recent episode manic ([facility] [place]) Manic episode, unspecified Bipolar II disorder ([facility] [place] Other bipolar disorders Acute asthma ([facility] [place])- Primary Unspecified asthma Smoker Tobacco use disorder Allergic reaction, subsequent encounter- Primary Bipolar disorder, in full remission, most recent episode manic ([facility] [place]) Manic episode, unspecified Bipolar II disorder ([facility] [place]) Other bipolar disorders Vaginal irritation Pruritus of [...] Bipolar II disorder (CMS/HCC) Other bipolar disorders Pre-op examination Vaginal irritation [...] disorder (CMS/HCC) Other bipolar disorders Acute asthma ([facility]/HCC)- Primary Unspecified asthma Smoker Tobacco use disorder [...] constipation Hypoglycemia Hypoglycemia, unspecified Irregular heart rate ([facility] [place]) Hyponatremia Hyposmolality and/or hyponatremia Slow transit constipation- Primary Hypokalemia Hypopotassemia Primary hypertension Unspecified essential hypertension Unintentional weight loss Loss of weight Renal atrophy, right Unspecified renal sclerosis Anxiety Anxiety state, unspecified Primary hypertension- Primary Unspecified essential hypertension documented in this encounter [facility]* [...] constipation Hypoglycemia Hypoglycemia, unspecified Irregular heart rate ([facility] [place] Hyponatremia Hyposmolality and/or hyponatremia Slow transit constipation- [...] Anxiety state, unspecified Anxiety Anxiety state, unspecified Irregular heart rhythm Primary hypertension Unspecified essential hypertension documented in this encounter [facility] Narrative - Reported* Type Description Date Medical History stomach issues Surgical History cholecystectomy Surgical History cyst removal under left arm Surgical History episotomy Surgical History tubal ligation Surgical History tonsillectomy Surgical History Nose surgery Hospitalization History see surgical hx Theravasc Other History of Present illness Narrative* Reason [...] > right * Previous Otolaryngology Provider: Dr. Cervantes * Previous documentation for this patient was [...] Clear, no discharge, no masses/lesions * Modified Tania Maneuver: Performed with a cotton tipped applicator, markedly improves breathing bilaterally. [id number] Work Phone: Hospital course Narrative No data available for this section [facility] Hospital Discharge instructionsNot on filedocumented in this encounterProNorth [facility] Health SystemInstructionsNot on filedocumented in this encounterAdena [facility] Health SystemInstructions* Attachments The following attachments cannot be sent through Care Everywhere. * Taking care of bruises (Italian) documented in this encounterProNorth [facility] Health SystemInstructionsNot on file documented in this encounterProMedica Health SystemInstructionsNot on file documented in this encounterProMedica Health SystemInstructionsNot on file documented in this encounterProMedica Health SystemInstructionsNot on file documented in this encounterProSelect [facility] Health SystemInstructionsNot on file documented in this encounterProNorth [facility] Health SystemInstructionsNot on file documented in this encounterBluffton Hospital SystemProgress note No data available for this section [facility] Reason for referral (narrative)No reason for referral information availableMarietta Memorial Hospital Work Phone: Summary Purpose Family History Unknown Family Member Name Dates Details No pertinent family history: Mother, Father(V49.89, Z78.9) Status:Active Relationship Condition Age at Onset Recorded Date/T dorene grandparent Diabetes mellitus Unknown father Diabetes mellitus Unknown Advance Directives Advance Directive Response Recorded Date/ Time Advance [...] Reason for Visit Chief Complaint Admit Date [facility] December 04, 2024 8:2 7am Hypokalemia February 22, 2025 2:14 pm Chief Complaint Admit Date [facility] December 04, 2024 8:2 7am Additional Source Comments INFORMATION SOURCE (unrecogn ized section and content) DATE CREATED AUTHOR 02/02/2018 [facility] DATE CREATED AUTHOR AUTHOR'S ORGANIZ ATION 12/18/2022 [facility] DATE CREATED AUTHOR AUTHOR'S ORGANIZ ATION 03/19/2023 [facility] DATE CREATED AUTHOR AUTHOR'S ORGANIZ ATION 12/12/2024 [facility] DATE CREATED AUTHOR AUTHOR'S ORGANIZ ATION 01/06/2025 [facility] DATE CREATED AUTHOR AUTHOR'S ORGANIZ ATION 01/07/2025 [facility] DATE CREATED AUTHOR AUTHOR'S ORGANIZ ATION 01/28/2025 [facility] DATE CREATED AUTHOR AUTHOR'S ORGANIZ ATION 03/02/2025 [facility] DATE CREATED AUTHOR AUTHOR'S ORGANIZ ATION 03/11/2025 [facility] DATE CREATED AUTHOR AUTHOR'S ORGANIZ ATION 03/22/2025 [facility] EPIC DATE CREATED AUTHOR AUTHOR'S ORGANIZ ATION 03/23/2025 [facility] DATE CREATED AUTHOR AUTHOR'S ORGANIZ ATION 03/24/2025 [facility] DATE CREATED AUTHOR AUTHOR'S ORGANIZ ATION 04/05/2025 [facility] REASON FOR VISIT (unrecogniz ed section and content) Reason Comments Other Revision septoplasty , turbinate reduction, nasal valve repair Reason Comments Wound Check Reason Comments Anxiety Reason Onset Date Comments Med Refill 05/22/2024 Reason Comments Well Women Visit Reason Comments Med Refill Lexapro, Valcyclovir Reason Comments Psychiatric Evaluation PTSD (Post-Traumatic Stress Disorder) Anxiety Specialty Diagnoses / Procedures Referred By Conttio t Referred To Contact Behavioral Health Diagnoses Grief reaction (CMS/HCC) Procedures DC OFFICE/OUTPATIENT NEW HIGH MDM 60 MINUTES Minoo Barbour PA [address] [facility] [address] [place] [address] Phone: tel: fax: Gonzales Still LPC Referral ID Status Reason Start Date Expiration Date V isits Requested Visits Authorized [id number] Closed Specialty Services Required 08/31/2024 02/27/2025 1 [...] 50 to 60 mpg , went to [facility] and then life flighted to [place] Reason Onset Date Comments Med Refill 12/14/2024 [...] Specialty Diagnoses / Procedures Referred By River zazueta Referred To Contact Diagnoses Hypokalemia Hypertension Uncontrolled hypertension Siomara Bolaños MD [address] , [facility] [address] [place] [address] Phone: tel: fax: Referral ID Status Reason Start Date Expiration Date Visits Re quested Visits Authorized [id number] 1 1 Reason Comments Follow-up Recent hospital visi ts: admitted 02/09/24 to [facility] dx: HTN,hypokalemia discharged home 02/09/25 rx's for potassium and lisinopril given02/13/25 [facility] ER for constipation pt was discharged home advised to do fleets enema Reason Comments Follow-up PTSD (Post-Traumatic Stress Disorder) Anxiety Panic Attack Reason Comments Adrenal Problem New REF/LAB Specialty Diagnoses / Procedures Referred By River zazueta Referred To Contact Endocrinology Diagnoses Endocrine disorder, unspecified Procedures DC OFFICE/OUTPATIENT NEW MODERATE MDM 45 MINUTES Fabian Cochran MD [address] [place] [address] Phone: tel: fax: Cristin Chandra MD [address] [place] [address] Phone: tel: fax: Referral ID Status Reason Start Date Expiration Date Visits Re quested Visits Authorized [id number] Closed 02/13/2025 08/12/2025 1 1 Reason Onset Date Comments Appointment 02/22/2025 Clinician left jeferson m about telehealth appt. Reason Onset Date Comments Results 03/08/2025 Reason Onset Date Comments Med Refill 03/19/2025 Reason Comments hormone disorder Vaginal Pain Reason Onset Date Comments Med Refill 04/10/2025 Care Teams (unrecognized sec tion and content) Endocrinologist Relationship Specialty Start Date End Date Tee Blancas MD [address] [facility] [address] [place] [address] PCP - General Family Medicine 01/20/23 Team Status: Active Member Role Status Dates PHYSICIAN NO FAMILY Primary Care Provider Active Team Status: Inactive Member Role Status Dates PHYSICIAN NO FAMILY Primary Care Provider Active Start: February 04, 2024 End: February 04, 2024 Kati Mark MD Attending Provider Active Star t: February 04, 2024 End: February 04, 2024 Endocrinologist Relationship Specialty Start Date End Date Tee Blancas MD [address] [facility] [address] [place] [address] PCP - General Family Medicine 01/20/23 Endocrinologist Relationship Specialty Start Date End Date Tee Blancas MD [address] [facility] [address] [place] [address] PCP - General Family Medicine 01/20/23 Endocrinologist Relationship Specialty Start Date End Date Tee Blancas MD [address] [facility] [address] [place] [address] PCP - General Family Medicine 01/20/23 Endocrinologist Relationship Specialty Start Date End Date Tee Blancas MD [address] [facility] [address] [place] [address] PCP - General Family Medicine 01/20/23 Endocrinologist Relationship Specialty Start Date End Date Tee Blancas MD [address] [facility] [address] [place] [address] PCP - General Family Medicine 01/20/23 Endocrinologist Relationship Specialty Start Date End Date Tee Blancas MD [address] [facility] [address] [place] [address] PCP - General Family Medicine 01/20/23 Endocrinologist Relationship Specialty Start Date End Date Tee Blancas MD [address] [facility] [address] [place] [address] PCP - General Family Medicine 01/20/23 Endocrinologist Relationship Specialty Start Date End Date Tee Blancas MD [address] [facility] [address] [place] [address] PCP - General Family Medicine 01/20/23 Endocrinologist Relationship Specialty Start Date End Date Tee Blancas MD [address] [facility] [address] [place] [address] PCP - General Family Medicine 01/20/23 Endocrinologist Relationship Specialty Start Date End Date Tee Blancas MD [address] [facility] [address] [place] [address] PCP - General Family Medicine 10/13/23 Endocrinologist Relationship Specialty Start Date End Date Tee Blancas MD [address] [facility] [address] [place] [address] PCP - General Family Medicine 10/13/23 Endocrinologist Relationship Specialty Start Date End Date Tee Blancas MD [address] [facility] [address] [place] [address] PCP - General Family Medicine 10/13/23 Endocrinologist Relationship Specialty Start Date End Date Tee Blancas MD [address] [facility] [address] [place] [address] PCP - General Family Medicine 01/20/23 Gonzales Still LPC Rn Perinatal Leaflet Or Newspaper Deliverer 10/02/24 Endocrinologist Relationship Specialty Start Date End Date Tee Blancas MD [address] [facility] [address] [place] [address] PCP - General Family Medicine 01/20/23 Gonzales Still LPC Rn Perinatal Leaflet Or Newspaper Deliverer 10/02/24 Endocrinologist Relationship Specialty Start Date End Date Tee Blancas MD [address] [facility] [address] [place] [address] PCP - General Family Medicine 01/20/23 Gonzales Still LPC Rn Perinatal Leaflet Or Newspaper Deliverer 10/02/24 Endocrinologist Relationship Specialty Start Date End Date Tee Blancas MD [address] [facility] [address] [place] [address] PCP - General Family Medicine 01/20/23 Gonzales Still LPC Rn Perinatal Leaflet Or Newspaper Deliverer 10/02/24 Endocrinologist Relationship Specialty Start Date End Date Tee Blancas MD [address] [facility] [address] [place] [address] PCP - General Family Medicine 01/20/23 Gonzales Still LPC Rn Perinatal Leaflet Or Newspaper Deliverer 10/02/24 Endocrinologist Relationship Specialty Start Date End Date Tee Blancas MD [address] [facility] [address] [place] [address] PCP - General Family Medicine 01/20/23 Gonzales Still LPC Rn Perinatal Leaflet Or Newspaper Deliverer 10/02/24 Endocrinologist Relationship Specialty Start Date End Date Tee Blancas MD [address] [facility] [address] [place] [address] PCP - General Family Medicine 01/20/23 Gonzales Still LPC Rn Perinatal Leaflet Or Newspaper Deliverer 10/02/24 Endocrinologist Relationship Specialty Start Date End Date Tee Blancas MD [address] [facility] [address] [place] [address] PCP - General Family Medicine 01/20/23 Gonzales Still LPC Rn Perinatal Leaflet Or Newspaper Deliverer 10/02/24 Endocrinologist Relationship Specialty Start Date End Date Tee Blancas MD [address] [facility] [address] [place] [address] PCP - General Family Medicine 01/20/23 Gonzales Still LPC Rn Perinatal Leaflet Or Newspaper Deliverer 10/02/24 Endocrinologist Relationship Specialty Start Date End Date Tee Blancas MD [address] [facility] [address] [place] [address] PCP - General Family Medicine 01/20/23 Gonzales Still LPC Rn Perinatal Leaflet Or Newspaper Deliverer 10/02/24 Team Status: Inactive Member Role Status Dates Dliia Cleary DO Emergency Provider Active Sta rt: December 04, 2024 End: December 04, 2024 PHYSICIAN NO FAMILY Primary Care Provider Active Start: December 04, 2024 End: December 04, 2024 Endocrinologist Relationship Specialty Start Date End Date Tee Blancas MD [address] [facility] [address] [place] [address] PCP - General Family Medicine 04/01/24 Endocrinologist Relationship Specialty Start Date End Date Tee Blancas MD [address] [facility] [address] [place] [address] PCP - General Family Medicine 01/20/23 Gonzales Still LPC Rn Perinatal Leaflet Or Newspaper Deliverer 10/02/24 Endocrinologist Relationship Specialty Start Date End Date Tee Blancas MD [address] [facility] [address] [place] [address] PCP - General Family Medicine 01/20/23 Gonzales Still LPC Rn Perinatal Leaflet Or Newspaper Deliverer 10/02/24 Endocrinologist Relationship Specialty Start Date End Date Tee Blancas MD [address] [facility] [address] [place] [address] PCP - General Family Medicine 01/20/23 Gonzales Still LPC Rn Perinatal Leaflet Or Newspaper Deliverer 10/02/24 Endocrinologist Relationship Specialty Start Date End Date Tee Blancas MD [address] [facility] [address] [place] [address] PCP - General Family Medicine 01/20/23 Gonzales Still LPC Rn Perinatal Leaflet Or Newspaper Deliverer 10/02/24 Endocrinologist Relationship Specialty Start Date End Date Tee Blancas MD [address] [facility] [address] [place] [address] PCP - General Family Medicine 04/01/24 Endocrinologist Relationship Specialty Start Date End Date Tee Blancas MD [address] [facility] [address] [place] [address] PCP - General Family Medicine 04/01/24 Endocrinologist Relationship Specialty Start Date End Date Tee Blancas MD [address] [facility] [place] [address] PCP - General Family Medicine 01/20/23 Gonzales Still LPC Rn Perinatal Leaflet Or Newspaper Deliverer 10/02/24 Endocrinologist Relationship Specialty Start Date End Date Tee Blancas MD [address] [facility] [address] [place] [address] PCP - General Family Medicine 01/20/23 Gonzales Still LPC Rn Perinatal Leaflet Or Newspaper Deliverer 10/02/24 Endocrinologist Relationship Specialty Start Date End Date Tee Blancas MD [address] [facility] [address] [place] [address] PCP - General Family Medicine 01/20/23 Gonzales Still LPC Rn Perinatal Leaflet Or Newspaper Deliverer 10/02/24 Endocrinologist Relationship Specialty Start Date End Date Tee Blancas MD [address] [facility] [address] [place] [address] PCP - General Family Medicine 01/20/23 Gonzales Still LPC Rn Perinatal Leaflet Or Newspaper Deliverer 10/02/24 Endocrinologist Relationship Specialty Start Date End Date Tee Blancas MD [address] [facility] [address] [place] [address] PCP - General Family Medicine 01/20/23 Gonzales Still LPC Rn Perinatal Leaflet Or Newspaper Deliverer 10/02/24 Endocrinologist Relationship Specialty Start Date End Date Tee Blancas MD [address] [facility] [address] [place] [address] PCP - General Family Medicine 04/01/24 Endocrinologist Relationship Specialty Start Date End Date Tee Blancas MD [address] [facility] [address] [place] [address] PCP - General Family Medicine 01/20/23 Gonzales Still LPC Rn Perinatal Leaflet Or Newspaper Deliverer 10/02/24 Endocrinologist Relationship Specialty Start Date End Date Tee Blancas MD [address] [facility] [address] [place] [address] PCP - General Family Medicine 01/20/23 Gonzales Still LPC Rn Perinatal Leaflet Or Newspaper Deliverer 10/02/24 Endocrinologist Relationship Specialty Start Date End Date Tee Blancas MD [address] [facility] [address] [place] [address] PCP - General Family Medicine 01/20/23 Gonzales Still LPC Rn Perinatal Leaflet Or Newspaper Deliverer 10/02/24 Endocrinologist Relationship Specialty Start Date End Date Tee Blancas MD [address] [facility] [address] [place] [address] PCP - General Family Medicine 01/20/23 Gonzales Still LPC Rn Perinatal Leaflet Or Newspaper Deliverer 10/02/24 Endocrinologist Relationship Specialty Start Date End Date Tee Blancas MD [address] [facility] [address] [place] [address] PCP - General Family Medicine 01/20/23 Gonzales 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 Rn Perinatal Leaflet Or Newspaper Deliverer 10/02/24 Team Status: Active Member Role Status Dates Tee Blancas MD Family Provider Active PHYSICIAN NO FAMILY Primary Care Provider Active Team Status: Inactive Member Role Status PHYSICIAN NO FAMILY Primary Care Provider Active Start: February 22, 2025 End: February 22, 2025 Kvng Reynoso MD Attending Provider Active Start : February 22, 2025 End: February 22, 2025 Tee Blancas MD Family Provider Active Start: February 22, 2025 End: February 22, 2025 Endocrinologist Relationship Specialty Start Date End Date Tee Blancas MD [address] [facility] [address] [place] [address] PCP - General Family Medicine 02/13/25 Endocrinologist Relationship Specialty Start Date End Date Tee Blancas MD [address] [facility] [address] [place] [address] PCP - General Family Medicine 01/20/23 Gonzales Still LPC Rn Perinatal Leaflet Or Newspaper Deliverer 10/02/24 Endocrinologist Relationship Specialty Start Date End Date Tee Blancas MD [address] [place] [address] PCP - General Family Medicine 01/20/23 Gonzales Still LPC Rn Perinatal Leaflet Or Newspaper Deliverer 10/02/24 Endocrinologist Relationship Specialty Start Date End Date Tee Blancas MD [address] [facility] [address] [place] [address] PCP - General Family Medicine 01/20/23 Gonzales Still LPC Rn Perinatal Leaflet Or Newspaper Deliverer 10/02/24 Endocrinologist Relationship Specialty Start Date End Date Tee Blancas MD [address] [facility] [address] [place] [address] PCP - General Family Medicine 01/20/23 Gonzales Still LPC Rn Perinatal Leaflet Or Newspaper Deliverer 10/02/24 Goals (unrecognized section and content) Goals may be documented in a n alternate section Scheduled Active and Recently Administ ered Medications (unrecognized section and content) Medication Order 02/07/2025 02/08/2025 02/09/2025 acetaminophen (OFIRMEV) IVPB Premix 1,000 mg (COMPLETED) 1,000 mg, intravenous, at 400 mL/hr, Administer over 15 Minutes, Once, On Imelda 02/08/25 at 1905, For 1 dose 1920 (New Bag - Provider: Bambi Kwan RN)193 (Stop Bag - Provider: Bambi Kwan LUIS FELIPE) ARIPiprazole (ABILIFY) tablet 5 mg 5 mg, oral, Daily, First dose on Wed02/09/25 at 0900, Look-alike/sound-alike medication - verify indication for use. 917 (Given - Provider: Meena Sanchez, RN) diphenhydrAMINE (BENADRYL) injection 50 mg (COMPLETED) 50 mg, intravenous, Once, On Imelda 02/08/25 at 1735, For 1 dose, Look-alike/sound-alike medication - verify indication for use. 1809 (Given - Provider: Kuldip Pierre Jr., LUIS FELIPE) enoxaparin (LOVENOX) syringe 40 mg 40 mg, subcutaneous, Daily, First dose on Wed02/09/25 at 0600, When Creatinine Clearance 30 mL/min or greater Look-alike/sound-alike medication - verify indication for use. 643 (Given - Provider: Kate Patel RN) fentaNYL (SUBLIMAZE) injection 25 mcg (COMPLETED) 25 mcg, intravenous, Once, On Imelda 02/08/25 at 1735, For 1 dose, For IVP, must be given slow IV Push over 1 to 2 minutes. Look-alike/sound-alike medication - verify indication for use. 1811 (Given - Provider: Kuldip Pierre Jr., LUIS FELIPE) fluticasone furoate-vilanteroL (BREO ELLIPTA) 100-25 mcg/dose inhaler 1 puff(Linked Group 1) 1 puff, inhalation, Daily, First dose on Wed02/09/25 at 1000, Administer fluticasone furoate-vilanterol (BREO ELLIPTA) 100-25 mcg/dose inhaler in addition to umeclidinium (INCRUSE ELLIPTA) 62.5 mcg/dose inhaler as a replacement for eyddmvforuw-jzsglatjihji-qt lanterol (TRELEGY ELLIPTA) inhaler 100-62.5-25 mcg/dose. 908 (Given - Provider: Alda Flaherty RCP) labetaloL [...] for use. 1331 (Given - Provider: Meena Sanchez, RN) metoprolol succinate XL (TOPROL XL) 24 hr tablet 25 mg 25 mg, oral, Daily, First dose on Wed02/09/25 at 0900, Look-alike/sound-alike medication - verify indication for use. Do not crush or chew. 114 (Given - Provider: Meena Sanchez, LUIS FELIPE) ondansetron (PF) (ZOFRAN) injection 4 mg (COMPLETED) 4 mg, intravenous, Once, On Imelda 02/08/25 at 1735, For 1 dose, Intravenous administration preferred to be given over 2-5 minutes. 180 (Given - Provider: Kuldip Pierre Jr., LUIS FELIPE) potassium chloride (KLOR-CON M 20) CR tablet 40 mEq (COMPLETED) 40 mEq, oral, Once, On Imelda 02/08/25 at 1900, For 1 dose, Do not crush or chew. 191 (Given - Provider: Bambi Kwan RN) potassium chloride IVPB 10 mEq/100 mL in water (0.1 mEq/mL premix) (CANCELED) 10 mEq, intravenous, at 100 mL/hr, Administer over 60 Minutes, Every 1 hour, First dose on Imelda 02/08/25 at 1900, For 2 doses, VESICANT (YELLOW) Infuse each 10 mEq over a minimum of 1 hour. 1918 (New Bag - Provider: Bambi Kwan, LUIS FELIPE)1920 (Rate/Dose Change - Provider: Kate Patel, RN - Comment: administered per ED RN while pt in ED)1950 (Paused - Provider: Kate Patel, RN)1950 (Paused - Provider: Kate Patel, RN)1954 (Restarted - Provider: Kate Patel, RN)1999 (Not Given - Provider: Meena Sanchez, LUIS FELIPE - Reason: Other)2114 (Stop Bag - Provider: Kate Patel RN)2114 (Stop Bag - Provider: Kate Paetl RN)2114 (Stop Bag - Provider: Kate Patel RN) pregabalin (LYRICA) capsule 100 mg 100 mg, oral, 2 times daily, First dose on Wed02/08/25 at 2300, Look-alike/sound-alike medication. Verify indication for use 2345 (Given - Provider: Kate Patel RN) 917 (Given - Provider: Meena Sanchez RN)2099 (Due) sodium chloride 0.9 % flush 3 mL 3 mL, intravenous, Every 12 hours scheduled, First dose on Wed02/08/25 at 2099 2099 (Not Given - Provider: Kate Patel RN - Reason: Other - Comment: DC'D PER provider) 919 (Given - Provider: Meena Sanchez RN)2099 (Due) umeclidinium (INCRUSE ELLIPTA) 62.5 mcg/actuation inhaler 1 puff(Linked Group 1) 1 puff, inhalation, Daily, First dose on Wed02/09/25 at 1000, Administer umeclidinium (INCRUSE ELLIPTA) 62.5 mcg/dose inhaler in addition to fluticasone furoate-vilanterol (BREO ELLIPTA) 100-25 mcg/dose inhaler as a replacement for nxxeyxzzouw-wleoytyvicmu-zt lanterol (TRELEGY ELLIPTA) inhaler 100-62.5-25 mcg/dose. Do not shake inhaler. 0909 (Given - Provider: Alda Flaherty RCP) PRN Medication Order 02/07/2025 02/08/2025 02/09/2025 acetaminophen (TYLENOL) tablet 650 mg 650 mg, oral, Every 6 hours PRN, mild pain - pain scale 1-3, headaches, temperature greater than 38 C, Starting on Wed02/08/25 at 2040 0140 (Given - Provid er: Kate Patel RN) ALPRAZolam (XANAX) tablet 0.5 mg 0.5 mg, oral, 2 times daily PRN, anxiety, Starting on Wed02/08/25 at 2315, Look-alike/sound-alike medication - verify indication for use. 7414 (Not Given - Provider: Kate Patel RN [...] Immediate release. 2346 (Given - Provider: Kate Patel RN) 0642 (Given - Provider: Kate Patel RN)1211 (Given - Provider: Meena Sanchez RN) potassium chloride (KAYCIEL) 20 mEq/15 mL [...] Alternative - Provider: Meena Sanchez, LUIS FELIPE) potassium chloride (KLOR-CON M 20) CR tablet [...] Patel RN)0641 (See Alternative - Provider: Kate Patel, RN)1433 (See Alternative - Provider: Meena Sanchez RN) sodium chloride 0.9 % flush 3 mL 3 mL, intravenous, As needed, line care, before and after each intermittent use, Starting on Wed02/08/25 at 2036 sodium chloride 0.9 % flush bag 25 mL, intravenous, at 100 mL/hr, Administer over 15 Minutes, As needed, line care, line care after IVPB administration, Starting on Wed02/08/25 at 2036 sodium chloride 0.9 % infusion 20 mL/hr, intravenous, Continuous PRN, to maintain patency of lines, Starting on Wed02/08/25 at 2036, For 1 day Linked Groups Order Group 1: fluticasone furoate-vilanteroL (BREO ELLIPTA) 100-25 mcg/dose inhaler 1 puffJump to med 1 puff, inhalation, Daily, First dose on Wed02/09/25 at 1000, Administer fluticasone furoate-vilanterol (BREO ELLIPTA) 100-25 mcg/dose inhaler in addition to umeclidinium (INCRUSE ELLIPTA) 62.5 mcg/dose inhaler as a replacement for qkiiwpvatfd-vfirtdwnktrt-dtpclgmsmw (TRELEGY ELLIPTA) inhaler 100-62.5-25 mcg/dose. And umeclidinium (INCRUSE ELLIPTA) 62.5 mcg/actuation inhaler 1 puffJump to med 1 puff, inhalation, Daily, First dose on Wed02/09/25 at 1000, Administer umeclidinium (INCRUSE ELLIPTA) 62.5 mcg/dose inhaler in addition to fluticasone furoate- vilanterol (BREO ELLIPTA) 100-25 mcg/dose inhaler as a replacement for hxztopcwnmd-zylwfdldexfu-xrcxussibi (TRELEGY ELLIPTA) inhaler 100-62.5-25 mcg/dose. Do not [...] BE BASED ON THE PRIMARY CLINICAL RECORDS. [facility] [employer] [facility]. provides no warranty or guarantee of the accuracy or completeness of information in this document.
--- NOTE | 2025-04-13 12:27 | PM.ONB ---
Brief Operative Note Date of procedure: 04/13/25 Pre-op diagnosis general: dyspareunia Post-op diagnosis: same as pre-op Procedure: NAME OF PROCEDURE: [revision of episotomy scar ] PROCEDURE: a posterior repair was performed. The triangular shaped area of the posterior fourchet was excised and the vaginal mucosa was then incised at the midline and incision was carried towards the top of the vaginal vault. . The vaginal mucosa was slightly trimmed and closed using interrupted 3-0 Vicryl suture.? The perineal muscles were then approximated using interrupted 3-0 Vicryl sutures and the rest of the perineal closure was performed in usual fashion with 3-0 Vicryl suture in continuous fashion. Hemostasis was excellent. The procedure was then terminated and patient was awakened and taken to the Recovery Room in stable condition.? Anesthesia: MAC Surgeon: Timmy Smiley Estimated blood loss (mL): 5 Pathology: none sent Condition: stable Disposition: PACU Urinary Catheter Management Urinary Catheter Management Straight: Cath placed during this visit: no
[2025-04-13 12:33] VITALS: BP 98/66; PULSE 61; TEMP 36.1; O2SAT 98
[2025-04-13] MEDS: HYDROCODONE/ACET 5-325 MG TABLET 1 TAB PO (12:45)
[2025-04-13 12:48] VITALS: BP 99/78; PULSE 56; O2SAT 99
[2025-04-13 13:03] VITALS: BP 114/80; PULSE 66; O2SAT 97
== END 2025-04-13 13:10 | disposition home or self-care (01) ==
LOC: SURGOUT 09:03
PROVIDERS: PCP Family Medicine; Visit Provider Obstetrics & Gynecology
PROC: (CPT 00940; principal; 2025-04-13 10:35)
DX: R10.2 Pelvic and perineal pain (principal); N94.10 Unspecified dyspareunia; F17.210 Nicotine dependence, cigarettes, uncomplicated; Z90.49 Acquired absence of other specified parts of digestive tract; Z90.710 Acquired absence of both cervix and uterus; E34.9 Endocrine disorder, unspecified; Z98.51 Tubal ligation status; J45.909 Unspecified asthma, uncomplicated; M79.7 Fibromyalgia; K21.9 Gastro-esophageal reflux disease without esophagitis
CPT/HCPCS: 00940; 56800; 36415; 84132; 85025; J1100; J1200; J1885; J2250; J2405; J2704; J3010

== ENCOUNTER 2025-06-19 09:13 | Emergency (ER) | payer OTHER, SELFPAY ==
--- OUTSIDE RECORDS SUMMARY | 2025-06-05 11:00 | XMS_ITS | Encounter Summary ---
Author Organization [facility] Address [address] [facility] [place] [address] Care Team Providers Care Relief Worker Name Role Phone Kimberly Arauz MD Primary Care Provider [phone] Gonzales Still LPC Unavailable Unava ilable Reason for Visit * ReasonCommentsFollow-upPTSD (Post-Traumatic Stress Disorder)Anxiety Encounter Details DateTypeDepartmentCare Team (Latest Contact Info)Gminpeatgqv78/28/2025 12:00 PM EDTClinical Support [facility] [address] [facility] [address] [place] [address] Gonzales Still LPC PTSD (post-traumatic stress disorder); Generalized anxiety disorder with panic attacks Social History Tobacco UseTypesPacks/DayYears UsedDateSmoking Tobacco: Every DayCigarettesLast attempted to quit: 12/30/2022Smokeless Tobacco: Former Comments:6-10 cigs/day Alcohol UseStandard Drinks/WeekCommentsYes2 (1 standard drink = 0.6 oz pure alcohol)Caffeine intake: 2-3 cups per dayAUDIT-CAnswerDate RecordedQ1: How often do you have a drink containing alcohol?Never01/20/2023Q2: How many drinks containing alcohol do you have on a typical day when you are drinking?Patient does not drink01/20/2023Q3: How often do you have six or more drinks on one occasion?Never01/20/2023HQ-2AnswerDate RecordedPatient Health Questionnaire-2 Glauk672/2025CommentsNoSex and Gender InformationValueDate Recorded Sex Assigned at BirthNot on fileLegal YgjIepusu18/15/2023 11:07 PM EDTGender IdentityNot on fileSexual OrientationNot on filedocumented as of this encounter Plan of Treatment DateTypeDepartmentCare Team (Latest Contact Info)Lehnazqyubg15/11/2025 3:00 PM ESTOffice Visit [facility] [place] [facility] [address] [place] [address] Minoo Barbour PA [address] [place] [address] 06/25/2025 2:00 PM ESTClinical Support [facility] [address] [place] [phone] Gonzales Still LPC documented as of this encounter Visit Diagnoses Diagnosis PTSD (post-traumatic stress disorder) Posttraumatic stress disorder Generalized anxiety disorder with panic attacks documented in this encounter Care Teams Team MemberRelationshipSpecialtyStart DateEnd Date Kimberly Arauz MD [address] [place] [address] PCP - GeneralFamily Medicine01/20/23 Gonzales Still LPC Social WorkerSocial Services10/02/24documented as of this encounter
--- OUTSIDE RECORDS SUMMARY | 2025-06-12 13:00 | XMS_ITS | Encounter Summary ---
Author Organization [facility] Address [address] [facility] [place] [address] Care Team Providers Care Underground Miner Name Role Phone Kimberly Arauz MD Primary Care Provider [phone] Gonzales Still LPC Unavailable Unava ilable Reason for Visit * ReasonCommentsFollow-upPTSD (Post-Traumatic Stress Disorder)Anxiety Encounter Details DateTypeDepartmentCare Team (Latest Contact Info)Xzdyhmhwlhu89/04/2025 1:00 PM ESTClinical Support [facility] [address] [facility] [address] [place] [phone] Gonzales Still LPC PTSD (post-traumatic stress disorder); [...] drinks on one occasion?Never01/20/2023HQ-2AnswerDate RecordedPatient Health Questionnaire-2 Jsyvk373/5CommentsNoSex and Gender InformationValueDate Recorded Sex Assigned at BirthNot on fileLegal JgvThfmcu72/15/2023 11:07 PM EDTGender IdentityNot on fileSexual OrientationNot on filedocumented as of this encounter Plan of Treatment DateTypeDepartmentCare Team (Latest Contact Info)Jedkbmqudng09/11/2025 3:00 PM ESTOffice Visit [facility] [place] [facility] [address] [place] [address] Minoo Barbour PA [address] [place] [address] 06/25/2025 2:00 PM ESTClinical Support [facility] [address] [place] [phone] Gonzales Still LPC documented as of this encounter Visit Diagnoses Diagnosis PTSD (post-traumatic stress disorder) Posttraumatic stress disorder Generalized anxiety disorder with panic attacks documented in this encounter Care Teams Team MemberRelationshipSpecialtyStart DateEnd Date Kimberly Arauz MD [address] [place] [address] PCP - GeneralFamily Medicine01/20/23 Gonzales Still LPC Social WorkerSocial Services10/02/24documented as of this encounter
--- OUTSIDE RECORDS SUMMARY | 2025-06-18 14:00 | XMS_ITS | Encounter Summary ---
Author Organization [facility] Address [address] [facility] [place] [address] Care Team Providers Care Mixer Diamond Powder Name Role Phone Kimberly Arazu MD Primary Care Provider [phone] Gonzales Still LPC Unavailable Unava ilable Reason for Visit * ReasonCommentsFollow-upPTSD (Post-Traumatic Stress Disorder)Anxiety Encounter Details DateTypeDepartmentCare Team (Latest Contact Info)Fxldxcbeujq34/10/2025 2:00 PM ESTClinical Support [facility] [address] [facility] [address] [place] [phone] Gonzales Still LPC PTSD (post-traumatic stress disorder); [...] drinks on one occasion?Never01/20/2023HQ-2AnswerDate RecordedPatient Health Questionnaire-2 Uwjnw260/5CommentsNoSex and Gender InformationValueDate Recorded Sex Assigned at BirthNot on fileLegal NybDdtemj63/15/2023 11:07 PM EDTGender IdentityNot on fileSexual OrientationNot on filedocumented as of this encounter Plan of Treatment DateTypeDepartmentCare Team (Latest Contact Info)Wsnvnssciaf77/11/2025 3:00 PM ESTOffice Visit [facility] [place] [facility] [address] [place] [address] Minoo Barbour PA [address] [place] [address] 06/25/2025 2:00 PM ESTClinical Support [facility] [address] [place] [phone] Gonzales Still LPC documented as of this encounter Visit Diagnoses Diagnosis PTSD (post-traumatic stress disorder) Posttraumatic stress disorder Generalized anxiety disorder with panic attacks documented in this encounter Care Teams Team MemberRelationshipSpecialtyStart DateEnd Date Kimberly Arauz MD [address] [place] [address] PCP - GeneralFamily Medicine01/20/23 Gonzales Still LPC Social WorkerSocial Services10/02/24documented as of this encounter
[2025-06-19 09:18] VITALS: BP 121/83; PULSE 96; TEMP 36.6; O2SAT 100; BMI 25.4
--- NOTE | 2025-06-19 09:31 | XR_ITS ---
[facility] [place] [id number] Patient Name: NAFISA ELLIOTT MRN: [id number] date: 1995 Sex: F Assigned Patient Location: ER Current Patient Location: ED.MAIN Accession/Order Number: [id number] Exam Date: 06/19/2025 09:35 Report Date: 06/19/2025 10:11 At the request of: ERIC ECHEVERRIA DO Procedure: XR ribs RT min 3V w CXR1V PA CHEST WITH RIGHT RIBS: CLINICAL HISTORY: Right posterior lower rib pain s/p fall COMPARISON: 11/29/2024 The chest film shows no infiltrate, effusion or pneumothorax. The cardiac, hilar and mediastinal silhouettes are within normal limits. No vascular congestion is seen. There is mild dextroscoliotic curvature. Hemostasis clips are visualized at the right axilla. AP and both oblique views of the right ribs show no displaced Fractures or bony destruction. XR/XR ribs RT min 3V w CXR1V IMPRESSION: NO ACUTE FINDINGS. Impression dictated by: Minoo Beck M.D. 06/19/2025 10:11 AM Dictation Location: [place] [address] Electronically authenticated by: [id number] Y Date: 06/19/2025 10:11
[2025-06-19] MEDS: LIDOCAINE 5% PATCH 1 PATCH TOPICAL (09:58)
--- OUTSIDE RECORDS SUMMARY | 2025-06-19 10:05 | XMS_ITS | Encounter Summary ---
Author Organization [facility] Address [address] [place] [address] [place] [address] Care Team Providers Care Evaporator Helper Name Role Phone Kimberly Arauz MD Primary Care Provider [phone] Gonzales Still FURNACE ATTENDANT Unavailable Unava ilable Encounter Details DateTypeDepartmentCare Team (Latest Contact Info)Jfghnugnyku11/10/2025Travel Social History Tobacco UseTypesPacks/DayYears UsedDateSmoking Tobacco: Every [...] drinks on one occasion?Never01/20/2023HQ-2AnswerDate RecordedPatient Health Questionnaire-2 Uqulm079CommentsNoSex and Gender InformationValueDate Recorded Sex Assigned at BirthNot on fileLegal YifWymmao04/15/2023 11:07 PM EDTGender IdentityNot on fileSexual OrientationNot on filedocumented as of this encounter Plan of Treatment DateTypeDepartmentCare Team (Latest Contact Info)Bpgldokubhz88/11/2025 3:00 PM ESTOffice Visit [facility] [place] [facility] [address] [facility] [address] [place] [address] Minoo Barbour PA [address] [facility] [address] [place] [address] 06/25/2025 2:00 PM ESTClinical Support [facility] [address] [place] [phone] Gonzales Still LPC documented as of this encounter Visit Diagnoses Not on filedocumented in this encounter Care Teams Team MemberRelationshipSpecialtyStart DateEnd Date Kimberly Arauz MD [address] [facility] [address] [place] [address] PCP - GeneralFamily Medicine01/20/23 Gonzales Still LPC Social WorkerSocial Services10/02/24documented as of this encounter
--- OUTSIDE RECORDS SUMMARY | 2025-06-19 10:05 | XMS_ITS | Clinical Summary ---
Author Organization [facility] Address [address] [place] [address] Phone Care Team Providers Care Mend Worker Name Role Phone Unavailable Primary Care Provider Unavailabl e Social History Tobacco UseTypesPacks/DayYears UsedDateSmoking Tobacco: Never Assessed CommentsUnknownSex and Gender InformationValueDate RecordedSex Assigned at Not on fileLegal MljGpterl04/30/2023 12:42 PM EDTGender IdentityNot on file Sexual OrientationNot on file Last Filed Vital Signs Vital SignReadingTime TakenCommentsBlood Pressure--Pulse--Nbijifnazxo85.3 ??C (97.4 ??F)12/04/2022 10:54 AM EDTRespiratory Rate--Oxygen Saturation--Inhaled Oxygen Concentration--Lvzfcl36.2 kg (146 lb)01/01/2023 9:03 AM SSQBxhlxu165.4 cm (5')01/01/2023 9:03 AM EDTBody Mass Index28.51001/01/2023 9:03 AM EDT Plan of Treatment Health MaintenanceDue DateLast DoneCommentsHIV Uxzujathl46/26/1998Lipid Panel 1997Yearly Adult Aeyjopdr37/26/1998MMR Vaccines (1 of 1 - Standard series) 1998Hepatitis C Yadoaozdf49/26/2016Hepatitis B Vaccines (1 of 3 - 19+ 3- dose series)2016Cervical Cancer Mnnqcuxge84/26/2019HPV/Bymxal0812/02/2018Pap Smear2018DTaP/Tdap/Td Vaccines (1 - Tdap)12/03/2019HPV Vaccines (1 - 3- dose standard series)2024Influenza Vaccine (#1)5COVID-19 Vaccine ( season)2025Zoster Vaccines (1 of 2)12/03/2047HIB VaccinesAged OutNo longer eligible based on patient's age to complete this topicHepatitis A VaccinesAged OutNo longer eligible based on patient's age to complete this topic IPV VaccinesAged OutNo longer eligible based on patient's age to complete this topicMeningococcal VaccineAged OutNo longer eligible based on patient's age to complete this topicPneumococcal Vaccine: Pediatrics and At-Risk Adult Patients Aged OutNo longer eligible based on patient's age to complete this topic Rotavirus VaccinesAged OutNo longer eligible based on patient's age to complete this topic
--- OUTSIDE RECORDS SUMMARY | 2025-06-19 10:05 | XMS_ITS | Clinical Summary ---
Author Organization [facility] Address [id number] [address] [place] [address] Care Team Providers Care Feed Adviser Name Role Phone Kimberly Arauz MD Primary Care Provider [phone] Allergies Active AllergyReactionsCriticalityNoted GiefOjyyrbrtPujda87/08/2024 numbness Fkcxztjtn41/08/7591BgcaxxuahRnedGos06/02/6916Ezjkihreovvhq65/02/2020 ` Bqxoulypnk90/28/7459Dlouzxcmkwcgcpoqpi49/02/2020Hydroxyzine Pepgxqf0308/30/2020 Medications MedicationSigDispense QuantityRefillsLast FilledStart DateEnd DateStatus ARIPiprazole (ABILIFY) 5 mg tablet Take 1 tablet (5 mg total) by mouth in the morning.4Active pregabalin (LYRICA) 100 mg capsule Take 1 capsule (100 mg total) by mouth in the morning and 1 capsule (100 mg total) before bedtime.5Active TRELEGY ELLIPTA 100-62.5-25 mcg blister with device Inhale 1 puff in the morning.5Active ergocalciferol (DRISDOL) 1,250 mcg (50,000 unit) capsule Take 1 capsule (50,000 Units total) by mouth once a week./ Active PROAIR RESPICLICK 90 mcg/actuation aerosol powdr breath activated Inhale 1 puff every 4 (four) hours as needed.4Active valACYclovir (VALTREX) 1000 mg tablet Take 1 tablet (1,000 mg total) by mouth in the morning and 1 tablet (1,000 mg total) before bedtime.5Active lidocaine (LIDODERM) 5 % Place 1 patch on the skin in the morning. Remove & Discard patch within 12 hours or as directedby . 30 patch 5Active naloxone (NARCAN) 4 mg/actuation spray,non-aerosol nasal spray Administer 1 spray (4 mg total) into alternating nostrils as needed for opioid reversal. 4 each 5Active ALPRAZolam (XANAX) 0.5 mg tablet Take 1 tablet (0.5 mg total) by mouth in the morning and 1 tablet (0.5 mg total) before bedtime.Active metoprolol succinate XL (TOPROL XL) 25 mg 24 hr tablet Take 1 tablet (25 mg total) by mouth in the morning.Active lisinopriL (PRINIVIL,ZESTRIL) 10 mg tablet Take 1 tablet (10 mg total) by mouth in the morning. 30 tablet 5Active potassium chloride (KLOR-CON SPRINKLE) 10 MEQ CR capsule Take 2 capsules (20 mEq total) by mouth in the morning. 10 capsule 5Active Active Problems ProblemNoted DateDiagnosed DjhvMopkvtwljjgz66/04/2025Moderate persistent asthma without labrgyepzlaa52/04/9011Xyijrnvanjv09/03/2025Motor vehicle accident, jvcvha8412/04/2024Generalized anxiety /13/2023Episodic mood disorder 10/18/2020ipolar II blentadr64/12/2021 Encounters DateTypeDepartmentCare HiwlBjvewveajqu23/31/2025Refill [facility] [address] [place] [id number] Delvis Chan, BUSINESS EXCELLENCE MANAGER-COOK ENCHILADA from Last 3 Months Immunizations ImmunizationAdministration DatesNext DueDTaP, Kijfhmkayvl80/11/2003,05/27/1999, 07/10/1998,04/19/1998,02/11/1998HPV Lrafhmdgodfi61/21/2014,02/21/2013,12/13/2012 Hep A, 2 Dose08/29/2013,12/13/2012Hep B / HIB07/10/1998,02/11/1998Hep B, Adolescent or Dfsveagxs01/27/1998Hib (HbOC)04/19/1998Hib (PRP-T)05/27/1999IPV 10/17/2002,04/19/1998,02/11/1998MMR10/17/2002,05/27/1999Meningococcal MCV4P 12/07/2017,04/04/2010OPV13535Xqje05/27/2010 Family History Medical HistoryRelationNameCommentsOtherFatherno bleeding historyDiabetes Maternal GrandmotherKidney diseaseMaternal GrandmotherLupusMaternal Grandmother No Known ProblemsMotherEpistaxisSon 1CharlesVon Willebrand diseaseSon 1Charles EpilepsySon 2RelationNameStatusCommentsFatherAliveMaternal GrandmotherMother AliveSon 1CharlesAliveSon 2Alive Social History Tobacco UseTypesPacks/DayYears UsedDateSmoking Tobacco: Every DayCigarettes Smokeless Tobacco: Never Tobacco Cessation:Ready to Q uit: Not Asked; Counseling Given: Not Answered Comments:Has been smoking since age 19 Alcohol UseStandard Drinks/WeekCommentsNot Currently0 (1 standard drink = 0.6 oz pure alcohol)[facility] UtilitiesAnswerDate RecordedIn the past 12 months has the [place], gas, oil, or water [employer] threatened to shut off services in your home?No02/08/2025Social Connection and Isolation PanelAnswerDate RecordedIn a typical week, how many times do you talk on the phone with family, friends, or neighbors?More than three times a week02/08/2025How often do you get together with friends or relatives?Three times a week02/08/2025How often do you attend episcopalian or roman catholic services?More than 4 times per year02/08/2025Do you belong to any clubs or organizations such as episcopalian groups, unions, fraternal or athletic groups, or school groups?No02/08/2025How often do you attend meetings of the clubs or organizations you belong to?Never02/08/2025re you , , , , never , or living with a partner? 02/08/2025Overall Financial Resource Strain (CARDIA)AnswerDate RecordedHow hard is it for you to pay for the very basics like food, housing, medical care, and heating?Not hard at all02/08/2025PHQ-2AnswerDate RecordedTotal Jwafq433 [facility] [place] of Occupational Health - Occupational Stress Questionnaire AnswerDate RecordedDo you feel stress - tense, restless, nervous, or anxious, or unable to sleep at night because yourmind is troubled all the time - these days? Not at all02/08/2025Exercise Vital SignAnswerDate RecordedOn average, how many days per week do you engage in moderate to strenuous exercise (like a brisk [employer])?2 days02/08/2025On average, how many minutes do you engage in exercise at this level?20 min02/08/2025PRAPARE - TransportationAnswerDate RecordedIn the past 12 months, has lack of transportation kept you from medical appointments or from getting medications?No02/08/2025In the past 12 months, has lack of transportation kept you from meetings, work, or from getting things needed for daily living?No02/08/2025Housing InstabilityAnswerDate RecordedAre you worried or concerned that in the next two months you may not have stable housing that you own, rent or stay in as a part of a household?No02/08/2025hildcareAnswer Date RecordedDo problems getting children librarian make it difficult for you to work or study?No02/08/2025EmploymentAnswerDate HsobktdjQhzsfalpmpSbplvlw21/12/2019Hunger ScreeningAnswerDate RecordedWithin the past 12 months we worried whether our food would run out before we got money to buy more.Never True02/13/2025Within the past 12 months the food we bought just didn't last and we didn't have money to get more.Never True02/13/2025Purpose - LifeAnswerDate RecordedPurpose and direction in nlhcQxynpah5522/2021CommentsNoSex and Gender Information ValueDate RecordedSex Assigned at BirthNot on fileLegal ObwQvuvwb63/04/2015 11:30 PM EDTGender IdentityNot on fileSexual OrientationNot on fileOccupation IndustryJob Start DateJob End DateNot on fileNot on fileNot on fileNot on file Last Filed Vital Signs Vital SignReadingTime TakenCommentsBlood Fopmmzyh390/9607 2:23 PM EDT Emyts789202/13/2025 2:23 PM XBLPkwbwffljds26.9 ??C (98.4 ??F)02/13/2025 2:23 PM EDTRespiratory Ybyg261102/13/2025 2:23 PM EDTOxygen Bnemaitiac947%02/13/2025 2:23 PM EDTInhaled Oxygen Concentration--Xlzqbc24.5 kg (129 lb)02/13/2025 2:23 PM EDT Irosbg593.4 cm (5')02/13/2025 2:23 PM EDTBody Mass Index25.19002/13/2025 2:23 PM EDT Plan of Treatment Health MaintenanceDue DateLast DoneCommentsTobacco Guqwvijbng45/26/1998Adult BMI Follow Up Plan12/03/2015DTaP,Tdap and Td Vaccines (7 - Td or Tdap)04/04/2020 04/04/2010, 10/17/2002, 05/27/1999, Additional history existsCOVID-19 Vaccine ( season)04/09//12/2020Influenza Lkhsfbj3604/09/2025Depression Artqcoxvj04/dult BMI Yiifwnlcw01/08//03/2025Tobacco Wrckaviji79/03/2025 Goals GoalPatient Goal TypeAssociated ProblemsRecent ProgressPatient-Stated?Author Safe discharge Mia Reardon, RN Note: Evaluation of progress towards goal: Pt will be open to safe discharge recs. Medical Devices Not on file Insurance Advance Directives * Full Code (Latest Code Status on File) Date ActivatedDate InactivatedComments02/08/2025 8:41 PM02/09/2025 6:09 PM * Full Code Date ActivatedDate InactivatedComments12/04/2024 12:12 PM12/12/2024 5:51 PM Care Teams Team MemberRelationshipSpecialtyStart DateEnd Date Kimberly Arauz MD [address] [place] [address] [address] [place] [address] PCP - GeneralFamily Medicine02/13/25
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
--- OUTSIDE RECORDS SUMMARY | 2025-06-19 10:05 | XMS_ITS | Encounter Summary ---
Author Organization [facility] Address [address] [facility] [place] [address] Care Team Providers Care Primary Education Professor Name Role Phone Kimberly Arauz MD Primary Care Provider [phone] Gonzales Still LPC Unavailable Unava ilable Encounter Details DateTypeDepartmentCare Team (Latest Contact Info)Gwfhmxrttdw95/10/2025amboo flowsheet [facility] [address] [facility] [address] [place] [address] Gonzales Still, TRISTAN Social History Tobacco UseTypesPacks/DayYears UsedDateSmoking Tobacco: Every [...] drinks on one occasion?Never01/20/2023HQ-2AnswerDate RecordedPatient Health Questionnaire-2 Lchuv248CommentsNoSex and Gender InformationValueDate Recorded Sex Assigned at BirthNot on fileLegal OklSlilns74/15/2023 11:07 PM EDTGender IdentityNot on fileSexual OrientationNot on filedocumented as of this encounter Plan of Treatment DateTypeDepartmentCare Team (Latest Contact Info)Pmnugcvtywt56/11/2025 3:00 PM ESTOffice Visit [facility] [address] [place] [address] Minoo Barbour PA [address] [place] [address] 06/25/2025 2:00 PM ESTClinical Support [facility] [address] [place] [address] Gonzales Still LPC documented as of this encounter Visit Diagnoses Not on filedocumented in this encounter Care Teams Team MemberRelationshipSpecialtyStart DateEnd Date Kimberly Arauz MD [address] [place] [address] PCP - GeneralFamily Medicine01/20/23 Gonzales Still LPC Social WorkerSocial Services10/02/24documented as of this encounter
--- OUTSIDE RECORDS SUMMARY | 2025-06-19 10:05 | XMS_ITS | Encounter Summary ---
Author Organization [facility] Address [address] [facility] [place] [address] Care Team Providers Care Hiv/Aids Care Nurse Name Role Phone Kimberly Arauz MD Primary Care Provider [phone] [place] Still SEAM STEAMER Unavailable Unava ilable Encounter Details DateTypeDepartmentCare Team (Latest Contact Info)Fkuvptqvsib92/28/2025Travel Social History Tobacco UseTypesPacks/DayYears UsedDateSmoking Tobacco: Every [...] drinks on one occasion?Never01/20/2023HQ-2AnswerDate RecordedPatient Health Questionnaire-2 Ocsnw882CommentsNoSex and Gender InformationValueDate Recorded Sex Assigned at BirthNot on fileLegal TuvSvbscd90/15/2023 11:07 PM EDTGender IdentityNot on fileSexual OrientationNot on filedocumented as of this encounter Plan of Treatment DateTypeDepartmentCare Team (Latest Contact Info)Etpotdertxo70/11/2025 3:00 PM ESTOffice Visit [facility] [address] [facility] [address] [place] [address] Minoo Barbour PA [address] [facility] [address] [place] [address] 06/25/2025 2:00 PM ESTClinical Support [facility] [address] [place] [address] Gonzales Still LPC documented as of this encounter Visit Diagnoses Not on filedocumented in this encounter Care Teams Team MemberRelationshipSpecialtyStart DateEnd Date Kimberly Arauz MD [address] [facility] [address] [place] [address] PCP - GeneralFamily Medicine01/20/23 Gonzales Still LPC Social WorkerSocial Services10/02/24documented as of this encounter
--- OUTSIDE RECORDS SUMMARY | 2025-06-19 10:05 | XMS_ITS | Encounter Summary ---
Author Organization [facility] Address [address] [facility] [place] [address] Care Team Providers Care Awnings Mechanic Name Role Phone Kimberly Arauz MD Primary Care Provider [phone] Gonzales Still LPC Unavailable Unava ilable Encounter Details DateTypeDepartmentCare Team (Latest Contact Info)Qxcrknjntna86/28/2025Bamboo flowsheet [facility] [address] [facility] [address] [place] [address] Gonzales Still, TRISTAN Social History Tobacco UseTypesPacks/DayYears [...] drinks on one occasion?Never01/20/2023HQ-2AnswerDate RecordedPatient Health Questionnaire-2 Kyesa108CommentsNoSex and Gender InformationValueDate Recorded Sex Assigned at BirthNot on fileLegal XadEgpnyz55/15/2023 11:07 PM EDTGender IdentityNot on fileSexual OrientationNot on filedocumented as of this encounter Plan of Treatment DateTypeDepartmentCare Team (Latest Contact Info)Idrfyksdkxv96/11/2025 3:00 PM ESTOffice Visit [facility] [address] [place] [address] Minoo Barbour PA [address] [place] [address] 06/25/2025 2:00 PM ESTClinical Support [facility] [address] [place] [address] Gonzales Still LPC documented as of this encounter Visit Diagnoses Not on filedocumented in this encounter Care Teams Team MemberRelationshipSpecialtyStart DateEnd Date Kimberly Arauz MD [address] [place] [address] PCP - GeneralFamily Medicine01/20/23 Gonzales Still LPC Social WorkerSocial Services10/02/24documented as of this encounter
--- OUTSIDE RECORDS SUMMARY | 2025-06-19 10:05 | XMS_ITS | Encounter Summary ---
Author Organization [facility] Address [address] [facility] [place] [address] Care Team Providers Care Cdl A Driver Name Role Phone Kimberly Arauz MD Primary Care Provider [phone] Gonzales Still LPC Unavailable Unava ilable Encounter Details DateTypeDepartmentCare Team (Latest Contact Info)Qrkturakbcf86/04/2025amboo flowsheet [facility] [address] [facility] [address] [place] [address] Gonzales Still, TRISTAN Social History Tobacco UseTypesPacks/DayYears [...] drinks on one occasion?Never01/20/2023HQ-2AnswerDate RecordedPatient Health Questionnaire-2 Fkzio995CommentsNoSex and Gender InformationValueDate Recorded Sex Assigned at BirthNot on fileLegal NbpVejvdd59/15/2023 11:07 PM EDTGender IdentityNot on fileSexual OrientationNot on filedocumented as of this encounter Plan of Treatment DateTypeDepartmentCare Team (Latest Contact Info)Sqlbxjofgyc72/11/2025 3:00 PM ESTOffice Visit [facility] [address] [place] [address] Minoo Barbour PA [address] [place] [address] 06/25/2025 2:00 PM ESTClinical Support [facility] [address] [place] [address] Gonzales Still LPC documented as of this encounter Visit Diagnoses Not on filedocumented in this encounter Care Teams Team MemberRelationshipSpecialtyStart DateEnd Date Kimberly Arauz MD [address] [place] [address] PCP - GeneralFamily Medicine01/20/23 Gonzales Still LPC Social WorkerSocial Services10/02/24documented as of this encounter
--- OUTSIDE RECORDS SUMMARY | 2025-06-19 10:05 | XMS_ITS | Encounter Summary ---
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 Unavailable Unava ilable Encounter Details DateTypeDepartmentCare Team (Latest Contact Info)Sckpwfimecn43/04/2025Travel Social History Tobacco UseTypesPacks/DayYears UsedDateSmoking Tobacco: Every [...] drinks on one occasion?Never01/20/2023HQ-2AnswerDate RecordedPatient Health Questionnaire-2 Tgszo391CommentsNoSex and Gender InformationValueDate Recorded Sex Assigned at BirthNot on fileLegal SupMhflnb57/15/2023 11:07 PM EDTGender IdentityNot on fileSexual OrientationNot on filedocumented as of this encounter Plan of Treatment DateTypeDepartmentCare Team (Latest Contact Info)Mkslvdhnvcg48/11/2025 3:00 PM ESTOffice Visit [facility] [address] [facility] [address] [place] [address] Minoo Barbour PA [address] [facility] [address] [place] [address] 06/25/2025 2:00 PM ESTClinical Support [facility] [address] [place] [address] Gonzales Still LPC documented as of this encounter Visit Diagnoses Not on filedocumented in this encounter Care Teams Team MemberRelationshipSpecialtyStart DateEnd Date Kimberly Arauz MD [address] [facility] [address] [place] [address] PCP - GeneralFamily Medicine01/20/23 Gonzales Still LPC Social WorkerSocial Services10/02/24documented as of this encounter
--- OUTSIDE RECORDS SUMMARY | 2025-06-19 10:05 | XMS_ITS | Encounter Summary ---
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 Unava ilable Reason for Visit * ReasonOnset DateCommentsMed Vqwptv1906/11/2025 Encounter Details DateTypeDepartmentCare Team (Latest Contact Info)Dkbfetmmvsl16/03/2025Refill [facility] [address] [place] [address] Kimberly Arauz MD [address] [place] [address] Hypokalemia Social History Tobacco UseTypesPacks/DayYears UsedDateSmoking Tobacco: Every [...] drinks on one occasion?Never01/20/2023HQ-2AnswerDate RecordedPatient Health Questionnaire-2 [id number] and Gender InformationValueDate Recorded Sex Assigned at BirthNot on fileLegal SyeQmnylw24/15/2023 11:07 PM EDTGender IdentityNot on fileSexual OrientationNot on filedocumented as of this encounter Plan of Treatment DateTypeDepartmentCare Team (Latest Contact Info)Rswkiidxjeq32/11/2025 3:00 PM ESTOffice Visit [facility] [address] [place] [address] Minoo Barbour PA [address] [place] [address] 06/25/2025 2:00 PM ESTClinical Support [facility] [address] [place] [address] Gonzales Still LPC documented as of this encounter Visit Diagnoses Diagnosis Hypokalemia Hypopotassemia documented in this encounter Care Teams Team MemberRelationshipSpecialtyStart DateEnd Date Kimberly Arauz MD [address] [place] [address] PCP - GeneralFamily Medicine01/20/23 Gonzales Still LPC Social WorkerSocial Services10/02/24documented as of this encounter
--- OUTSIDE RECORDS SUMMARY | 2025-06-19 10:05 | XMS_ITS | Clinical Summary ---
Author Organization [facility] Address [address] [facility], [address] [place] [address] Care Team Providers Care Computer Systems Information Director Name Role Phone Kimberly Arauz MD Primary Care Provider [phone] Allergies Active AllergyReactionsCriticalityNoted RhvfHwxndjsyBolitsrndh30/02/2020Basil Oil05/16/2024 numbness PticijlkcWhdvBab87/02/4951Gwitpzdkm60/08/2024Hydroxyzine Hdgfrlz1408/30/2020 Wyvwmpsckeoexgryhr95/02/7965Zujetydxcnwpm98/02/2020 ` Medications MedicationSigDispense QuantityRefillsLast FilledStart DateEnd DateStatus ARIPiprazole (ABILIFY) 5 MG tablet Take 1 tablet by mouth daily08/17/2023ctive escitalopram (LEXAPRO) 20 MG tablet Take 1 tablet by mouth dailyActive LORazepam (ATIVAN) 0.5 MG tablet Take 1 tablet by mouth every 6 hours as needed for Anxiety.Active Active Problems No known active problems Family History Medical HistoryRelationNameCommentsDown SyndromeBrotherHeart DiseaseFatherMental IllnessFatherCervical CancerMothermardelDiabetesMothermardelRelationNameStatus CommentsBrotherDeceasedDaughterAliveFatherAliveMothermardelAliveSister 1Alive Sister 2AliveSon 1AliveSon 2Alive Social History Tobacco UseTypesPacks/DayYears UsedDateSmoking Tobacco: Every DayCigarettes Smokeless Tobacco: Never Tobacco Cessation:Ready to Q uit: Not Asked; Counseling Given: Not Answered Alcohol UseStandard Drinks/WeekCommentsYes0 (1 standard drink = 0.6 oz pure alcohol)socialCommentsNoSex and Gender InformationValueDate RecordedSex Assigned at BirthNot on fileLegal FdaAudghr25/13/2013 12:03 AM ESTGender IdentityNot on fileSexual OrientationNot on file Last Filed Vital Signs Vital SignReadingTime TakenCommentsBlood Aelndbir04/4905/19/2024 9:08 AM EDT Qtwom480905/19/2024 9:08 AM DPXKwibsqxivxx98.7 ??C (98 ??F)05/19/2024 9:08 AM EDT Respiratory Rate--Oxygen Eteqbcteow21%05/19/2024 9:08 AM EDTInhaled Oxygen Concentration--Makrby47.9 kg (143 lb)05/19/2024 9:08 AM ECLUathvg072.4 cm (5') 05/19/2024 9:08 AM EDTBody Mass Index27.9305/19/2024 9:08 AM EDT Plan of Treatment Health MaintenanceDue DateLast DoneCommentsHepatitis B vaccine (3 of 3 - 3-dose series), 02/11/1998Depression Bjvbbu0112/02/2009Varicella vaccine (1 of 2 - 13+ 2-dose series)2010HIV tdhudp0712/02/2012Hepatitis C szqocr6812/03/2015Pneumococcal 0-49 years Vaccine (1 of 2 - PCV)2016 DTaP/Tdap/Td vaccine (7 - Td or Tdap), 10/17/2002, 05/27/1999, Additional history existsFlu vaccine (#1)03/09/2025OVID-19 Vaccine ( - season)2025Hib awllggpCwwzwdjws13/19/1999, 07/10/1998, 04/19/1998, Additional history existsPolio zaptohcXszowfhfd93/11/2003, 04/19/1998, 02/11/1998HPV yoindhpFjcafjuyz32/21/2014, 02/21/2013, 12/13/2012 Hepatitis A wviufwuEbhlkdajb35/21/2014, 12/13/2012Meningococcal (ACWY) vaccine Aged Out12/07/2017, 04/04/2010No longer eligible based on patient's age to complete this topicMeningococcal B vaccineAged OutNo longer eligible based on patient's age to complete this topic Insurance Care Teams Team MemberRelationshipSpecialtyStart DateEnd Date Kimberly Arauz MD [address] [facility] [address] [place] [address] PCP - GeneralFamily Uzgobddo83/11/24
--- OUTSIDE RECORDS SUMMARY | 2025-06-19 10:05 | XMS_ITS | Encounter Summary ---
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 OPERATIONS SUPERVISOR Unavailable Unava ilable Reason for Visit * ReasonOnset DateCommentsMed Efuzkc9106/11/2025 Encounter Details DateTypeDepartmentCare Team (Latest Contact Info)Bceulpkocet89/03/2025Refill [facility] [address] [place] [address] Kimberly Arauz MD [address] [place] [address] Anxiety Social History Tobacco UseTypesPacks/DayYears UsedDateSmoking Tobacco: Every [...] drinks on one occasion?Never01/20/2023HQ-2AnswerDate RecordedPatient Health Questionnaire-2 Dzoya759CommentsNoSex and Gender InformationValueDate Recorded Sex Assigned at BirthNot on fileLegal EymSqyyyx92/15/2023 11:07 PM EDTGender IdentityNot on fileSexual OrientationNot on filedocumented as of this encounter Plan of Treatment DateTypeDepartmentCare Team (Latest Contact Info)Fkdoenrmptk55/11/2025 3:00 PM ESTOffice Visit [facility] [address] [place] [address] Minoo Barbour PA [address] [place] [address] 06/25/2025 2:00 PM ESTClinical Support [facility] [address] [place] [phone] Gonzales Still LPC documented as of this encounter Visit Diagnoses Diagnosis Anxiety Anxiety state, unspecified documented in this encounter Care Teams Team MemberRelationshipSpecialtyStart DateEnd Date Kimberly Arauz MD [address] [place] [address] PCP - GeneralFamily Medicine01/20/23 Gonzales Still LPC Social WorkerSocial Services10/02/24documented as of this encounter
[2025-06-19 10:06] LABS: Glucose Urine UA NEGATIVE (NEGATIVE)
[2025-06-19 10:16] LABS: Cast Seen? NONE SEEN #/LPF (NONE SEEN); Crystals Seen? None Seen #/HPF (None Seen)
[2025-06-19 10:39] VITALS: BP 116/83; PULSE 88; O2SAT 99
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
== END 2025-06-19 10:41 | disposition home or self-care (01) ==
PROVIDERS: Emergency Provider Student in an Organized Health Care Education/Training Program; PCP Family Medicine
DX: M54.6 Pain in thoracic spine (principal); F17.210 Nicotine dependence, cigarettes, uncomplicated
CPT/HCPCS: 71101; 81001; 99284